=== PATIENT | male | born 1960 | race Hispanic/Latino ===

== ENCOUNTER 2018-02-10 16:41 | Emergency (ER) | payer SELFPAY ==
--- NOTE | 2018-02-10 17:39 | EDPHYS ---
Physician Documentation [facility] Name: Taiwo Chery Age: 57 yrs Sex: Male : 1960 Arrival Date: 02/10/2018 Time: 16:45 Bed 20 Private MD: ED Physician You Daigle HPI: 02/10 17:16 This 57 yrs old Male presents to ER via Ambulatory with complaints of Diarrhea.gs 17:16 The patient presents to the emergency department with diarrhea, 10 times since the gs onset of symptoms, abdominal pain, of the right upper quadrant and left upper quadrant, described as crampy, intermittent. Onset: The symptoms/episode began/occurred 3 day(s) ago. Possible causes: sick contacts, by family, , had same. The symptoms are aggravated by nothing. The symptoms are alleviated by nothing. Associated signs and symptoms: Pertinent positives: diarrhea, Pertinent negatives: fever, GI bleeding. Severity of symptoms: At their worst the symptoms were moderate in the emergency department the symptoms have improved moderately. The patient has experienced similar episodes in the past, a few times. The patient has not recently seen a physician. Historical: - Allergies: 16:56 NKDA; aj - Home Meds: 16:56 aspirin 81 mg Oral TbEC 1 tab once daily [Active]; atenolol 25 mg Oral tab 1 tab once aj daily [Active]; enalapril maleate 20 mg Oral tab 1 tab once daily [Active]; metformin 500 mg Oral tr24 1 tab once daily [Active]; Zocor Oral [Active]; - PMHx: 16:56 Anxiety; Diabetes - NIDDM; Headaches; Hyperlipidemia; Hypertension; TIA; aj - PSHx: 16:56 None; aj - Immunization history:: Adult Immunizations up to date. - Social history:: Smoking status: Patient/guardian denies using tobacco. ROS: 17:16 All other systems are negative. gs Exam: 17:16 Head/Face: Normocephalic, atraumatic. Eyes: Pupils equal round and reactive to light, gs extra-ocular motions intact. Lids and lashes normal. Conjunctiva and sclera are non-icteric and not injected. Cornea within normal limits. Periorbital areas with no swelling, redness, or edema. ENT: Nares patent. No nasal discharge, no septal abnormalities noted. Tympanic membranes are normal and external auditory canals are clear. Oropharynx with no redness, swelling, or masses, exudates, or evidence of obstruction, uvula midline. Mucous membranes moist. Neck: Trachea midline, no thyromegaly or masses palpated, and no cervical lymphadenopathy. Supple, full range of motion without nuchal rigidity, or vertebral point tenderness. No Meningismus. Chest/axilla: Normal chest wall appearance and motion. Nontender with no deformity. No lesions are appreciated. Cardiovascular: Regular rate and rhythm with a normal S1 and S2. No gallops, murmurs, or rubs. Normal PMI, no JVD. No pulse deficits. Respiratory: Lungs have equal breath sounds bilaterally, clear to auscultation and percussion. No rales, rhonchi or wheezes noted. No increased work of breathing, no retractions or nasal flaring. Back: No spinal tenderness. No costovertebral tenderness. Full range of motion. Skin: Warm, dry with normal turgor. Normal color with no rashes, no lesions, and no evidence of cellulitis. MS/ Extremity: Pulses equal, no cyanosis. Neurovascular intact. Full, normal range of motion. Neuro: Awake and alert, GCS 15, oriented to person, place, time, and situation. Cranial nerves II-XII grossly intact. Motor strength 5/5 in all extremities. Sensory grossly intact. Cerebellar exam normal. Normal gait. 17:16 Constitutional: The patient appears alert, awake. 17:16 Abdomen/GI: Inspection: abdomen appears normal, Bowel sounds: normal, Palpation: abdomen is soft and non-tender, in all quadrants, rebound tenderness, is not appreciated. Vital Signs: 16:56 BP 124 / 67; Pulse 83; Resp 17; Temp 98.4; Pulse Ox 99% on R/A; Weight 114.31 kg; aj Height 5 ft. 4 in. (162.56 cm); Pain 0/10; 17:57 BP 121 / 72; Pulse 80; Resp 18; Temp 97.9; Pulse Ox 99% on R/A; ph 16:56 Body Mass Index 43.26 (114.31 kg, 162.56 cm) aj MDM: 17:14 Patient medically screened. 17:16 Differential diagnosis: gastritis, viral gastroenteritis, gastroenteritis. Data gs reviewed: vital signs, nurses notes. Response to treatment: the patient's symptoms have mildly improved after treatment, and as a result, I will discharge patient. ED course: pt has stable vital signs no vomiting can hydrate will. Administered Medications: No medications were administered Disposition: 02/10/18 17:38 Discharged to Home. Impression: Diarrhea, unspecified. - Condition is Stable. - Discharge Instructions: Diarrhea. - Prescriptions for loperamide 2 mg Oral capsule - take 2 capsule by ORAL route as directed after 1st loose stool, followed by 1 capsule after each subsequent loose stool QID not to exceed 16 mg/day; 30 capsule. - Work release form, Medication Reconciliation Form, Thank You Letter, Antibiotic Education, Prescription Opioid Use form. - Follow up: Private Physician; When: 2 - 3 days; Reason: Re-evaluation by your physician. Follow up: Catarino Ibarra MD; When: 2 - 3 days; Reason: Recheck today's complaints, Re-evaluation by your physician. Signatures: Dispatcher [employer] Meaghan Bills RN RN aj Hall, Patricia, RN RN You Daigle MD MD
--- NOTE | 2018-02-10 17:39 | ER ---
Nurse's Notes [facility] Name: Taiwo Chery Age: 57 yrs Sex: Male : 1960 Arrival Date: 02/10/2018 Time: 16:45 Bed 20 Private MD: Diagnosis: Diarrhea, unspecified Presentation: 02/10 16:55 Presenting complaint: Patient states: Diarrhea for 2 days. Transition of care: patient aj was not received from another setting of care. Onset of symptoms was February 09, 2018. Care prior to arrival: None. 16:55 Method Of Arrival: Ambulatory aj 16:55 Acuity: LEONARD 3 aj Triage Assessment: 16:56 General: Appears in no apparent distress. comfortable, Behavior is calm, cooperative, aj appropriate for age. Pain: Denies pain. Neuro: Level of Consciousness is awake, alert, obeys commands, Oriented to person, place, time, situation. Respiratory: Airway is patent Respiratory effort is even, unlabored, Respiratory pattern is regular, symmetrical. GI: Reports lower abdominal pain, upper abdominal pain, diarrhea. Derm: Skin is intact, is healthy with good turgor, Skin is pink, warm \T\ dry. normal. Historical: - Allergies: 16:56 NKDA; aj - Home Meds: 16:56 aspirin 81 mg Oral TbEC 1 tab once daily [Active]; atenolol 25 mg Oral tab 1 tab once aj daily [Active]; enalapril maleate 20 mg Oral tab 1 tab once daily [Active]; metformin 500 mg Oral tr24 1 tab once daily [Active]; Zocor Oral [Active]; - PMHx: 16:56 Anxiety; Diabetes - NIDDM; Headaches; Hyperlipidemia; Hypertension; TIA; aj - PSHx: 16:56 None; aj - Immunization history:: Adult Immunizations up to date. - Social history:: Smoking status: Patient/guardian denies using tobacco. Screenin:54 Abuse screen: Denies threats or abuse. Denies injuries from another. Nutritional ph screening: No deficits noted. Tuberculosis screening: No symptoms or risk factors identified. Fall Risk None identified. Assessment: 17:00 General: Appears in no apparent distress. comfortable, well groomed, Behavior is calm, ph cooperative, appropriate for age, Denies fever. Pain: Complains of pain in left upper quadrant and right upper quadrant. Neuro: Level of Consciousness is awake, alert, obeys commands, Oriented to person, place, time, Appropriate for age. Cardiovascular: Capillary refill < 3 seconds Patient's skin is warm and dry. Respiratory: Airway is patent Respiratory effort is even, unlabored, Respiratory pattern is regular, symmetrical. GI: Abdomen is round non-distended, Bowel sounds present X 4 quads. Abd is soft and non tender X 4 quads. Reports upper abdominal pain, diarrhea, Patient currently denies nausea, vomiting. Derm: Skin is intact, is healthy with good turgor, Skin is pink, warm \T\ dry. Musculoskeletal: Circulation, motion, and sensation intact. Range of motion: intact in all extremities. Vital Signs: 16:56 BP 124 / 67; Pulse 83; Resp 17; Temp 98.4; Pulse Ox 99% on R/A; Weight 114.31 kg; Height 5 ft. 4 in. (162.56 cm); Pain 0/10; 17:57 BP 121 / 72; Pulse 80; Resp 18; Temp 97.9; Pulse Ox 99% on R/A; ph 16:56 Body Mass Index 43.26 (114.31 kg, 162.56 cm) ED Course: 16:45 Patient arrived in ED. mr 16:56 Triage completed. 16:56 Arm band placed on right wrist. Patient placed in an exam room. 17:06 You Daigle MD is Attending Physician. 17:38 Ellie Lehman RN is Primary Nurse. 17:38 Catarino Ibarra MD is Referral Physician. 17:55 Patient has correct armband on for positive identification. Bed in low position. Call ph light in reach. Side rails up X 1. Pulse ox on. NIBP on. 17:56 No provider procedures requiring assistance completed. Patient did not have IV access ph during this emergency room visit. Administered Medications: No medications were administered Outcome: 17:38 Discharge ordered by . 17:56 Discharged to home ambulatory, with family. ph 17:56 Condition: good 17:56 Discharge instructions given to patient, family, Instructed on discharge instructions, follow up and referral plans. medication usage, Demonstrated understanding of instructions, follow-up care, medications, Prescriptions given X 1. 17:57 Patient left the ED. ph Signatures: Meaghan Flannery, LELE Sherita Wren Patricia, RN RN ph You Daigle MD MD gs
== END 2018-02-10 17:57 | disposition home or self-care (01) ==
LOC: ER 16:41
DX: R19.7 Diarrhea, unspecified (principal); I10 Essential (primary) hypertension; E11.9 Type 2 diabetes mellitus without complications; Z79.82 Long term (current) use of aspirin; E78.5 Hyperlipidemia, unspecified; F41.9 Anxiety disorder, unspecified
CPT/HCPCS: 99283

== ENCOUNTER 2018-03-22 17:56 | Observation (INO) | payer OTHER, SELFPAY ==
[2018-03-22] MEDS ORDERED: ASPIRIN 81 MG CHEWABLE TABLET ONE (18:00)
[2018-03-22] MEDS ORDERED: MORPHINE 4 MG/ML SYR ONE (18:17)
[2018-03-22] MEDS ORDERED: ONDANSETRON 4 MG/2 ML VIAL ONE (18:18)
[2018-03-22 18:47] LABS: Absolute Lymphocytes (CBC) 3.7 K/uL (0.7-4.9); Absolute Neutrophil 6.2 K/uL (1.8-8.0); Basophils % 0.5 % (0-1.3); Eosinophils % 4.6 % (0-4.4); Hematocrit 32.1 % (39.6-49.0); Lymphocytes % 32.2 % (15.3-44.8); MCH 22.6 pg (27.0-35.0); MCV 73.3 fL (80-100); MPV 10.1 fL (7.6-11.3); Monocytes % 8.6 % (3.3-12.3); RBC Red Blood Cell Count 4.38 M/uL (4.33-5.43)
[2018-03-22 18:49] LABS: Protime INR 0.97
--- NOTE | 2018-03-22 18:51 | RAD REPORT ---
EXAM DESCRIPTION: RAD - Chest Single View - 03/22/2018 6:44 pm CLINICAL HISTORY: Chest pain. COMPARISON: 05/29/2017 FINDINGS: Portable technique limits examination quality. The lungs are grossly clear. The heart is normal in size. No displaced fractures. IMPRESSION: No acute intrathoracic process suspected.
[2018-03-22 19:00] LABS: Bicarbonate 25 mEq/L (21-31); Glucose Level 188 mg/dL (65-120); Potassium 3.7 mEq/L (3.6-5.0); Sodium Level 137 mEq/L (135-145)
[2018-03-22 19:04] LABS: ALT/SGPT 36 IU/L (10-60); AST/SGOT 36 IU/L (10-42); Alkaline Phosphatase 88 IU/L (42-121); BUN Blood Urea Nitrogen 13 mg/dL (6-20); Bilirubin Total 0.2 mg/dL (0.3-1.2); CKMB Creatine Kinase MB 1.3 ng/ml (0.3-4.0); Creatine Phosphokinase 90 IU/L (22-269); Magnesium 1.8 mg/dL (1.8-2.5); Protein, Total 7.5 g/dL (6.0-8.3)
[2018-03-22 19:06] LABS: Bilirubin Direct < 0.1 mg/dL (0-0.2)
[2018-03-22 19:49] LABS: Urine Blood 3+ (NEG); Urine Glucose NEGATIVE (NEG); Urine Protein NEGATIVE (NEG); Urine pH 6.5 (5.0-7.0)
--- NOTE | 2018-03-22 20:24 | ER ---
Nurse's Notes [facility] Name: Taiwo Chery Age: 57 yrs Sex: Male : 1960 Arrival Date: 03/22/2018 Time: 17:57 Bed 5 Private MD: Catarino Brandt E Diagnosis: Chest pain, unspecified Presentation: 03/22 18:00 Presenting complaint: states: chest pain for 30 minutes, pt clammy and clutching la1 chest in triage. Transition of care: patient was not received from another setting of care. Onset of symptoms was March 22, 2018. Initial Sepsis Screen: Does the patient meet any 2 criteria? No. Patient's initial sepsis screen is negative. Does the patient have a suspected source of infection? No. Patient's initial sepsis screen is negative. Care prior to arrival: None. 18:00 Method Of Arrival: Ambulatory la1 18:00 Acuity: LEONARD 2 la1 Historical: - Allergies: 18:01 NKDA; la1 - Home Meds: 21:22 aspirin 81 mg Oral TbEC 1 tab once daily [Active]; atenolol 25 mg Oral tab 1 tab once ao daily [Active]; enalapril maleate 20 mg Oral tab 1 tab once daily [Active]; metformin 500 mg Oral tr24 1 tab once daily [Active]; Zocor Oral [Active]; - PMHx: 18:01 Anxiety; Diabetes - NIDDM; Headaches; Hyperlipidemia; Hypertension; TIA; la1 - Immunization history:: Adult Immunizations up to date. - Social history:: Smoking status: Patient/guardian denies using tobacco. Screenin:09 Abuse screen: Denies threats or abuse. Denies injuries from another. Nutritional iw screening: No deficits noted. Tuberculosis screening: No symptoms or risk factors identified. Fall Risk IV access (20 points). Assessment: 18:08 General: Appears uncomfortable, obese, Behavior is cooperative, anxious. Pain: iw Complains of pain in anterior aspect of left upper chest and left breast Pain does not radiate. Pain currently is 10 out of 10 on a pain scale. Quality of pain is described as sharp, Pain began 30 min ago. Is continuous. Neuro: Level of Consciousness is awake, alert, obeys commands, Oriented to person, place, time, situation, Moves all extremities. Full function. Cardiovascular: Reports chest pain, Denies shortness of breath, Edema is absent. Rhythm is regular. Respiratory: Respiratory effort is even, unlabored, Respiratory pattern is regular. Derm: Skin is normal. Musculoskeletal: Range of motion: intact in all extremities. 19:00 Reassessment: Patient appears in no apparent distress at this time. Patient and/or sg family updated on plan of care and expected duration. Pain level reassessed. Patient is alert, oriented x 3, equal unlabored respirations, skin warm/dry/pink. pt family remains at bedside at this time, awaiting new orders, report given to Loy RN, Julianna RN. 19:26 General: Appears in no apparent distress. comfortable, Behavior is cooperative. Pain: ao Complains of pain in chest. Neuro: Level of Consciousness is awake, alert, obeys commands, Oriented to person, place, time, situation, Moves all extremities. Full function Speech is normal, Facial symmetry appears normal. Cardiovascular: Patient's skin is warm and dry. Respiratory: Airway is patent Respiratory effort is even, unlabored, Respiratory pattern is regular, symmetrical. GI: Abdomen is obese. : No signs and/or symptoms were reported regarding the genitourinary system. EENT: No signs and/or symptoms were reported regarding the EENT system. Derm: Skin is normal, Skin temperature is warm. 20:40 Reassessment: Patient appears in no apparent distress at this time. Patient and/or ao family updated on plan of care and expected duration. Pain level reassessed. Patient is alert, oriented x 3, equal unlabored respirations, skin warm/dry/pink. Waiting on Dr Orders to take patient to his room. 21:40 Reassessment: Patient appears in no apparent distress at this time. Patient and/or ao family updated on plan of care and expected duration. Pain level reassessed. Patient is alert, oriented x 3, equal unlabored respirations, skin warm/dry/pink. Waiting on Dr Admission orders. 22:29 Reassessment: Patient appears in no apparent distress at this time. Patient and/or ao family updated on plan of care and expected duration. Pain level reassessed. Dr Shook has been notified that patient has a pending admission and we are just waiting on his admission orders. 22:59 Reassessment: Phone report given to LELE Burns. Patient to be transported to his room. ao Vital Signs: 18:01 BP 142 / 80; Pulse 83; Resp 19; Temp 98.8(TE); Pulse Ox 100% on R/A; Weight 107.05 kg; la1 Height 5 ft. 2 in. (157.48 cm); 19:00 BP 136 / 76; Pulse 79; Resp 17; Pulse Ox 100% on R/A; sg 19:30 BP 112 / 70; Pulse 76; Resp 18; Pulse Ox 98% on R/A; ao 20:40 BP 124 / 64; Pulse 69; Resp 16; Pulse Ox 98% on R/A; Pain 0/10; ao 21:40 BP 126 / 81; Pulse 71; Resp 18; Pulse Ox 98% on R/A; Pain 0/10; ao 22:29 BP 123 / 69; Pulse 74; Resp 20; Pulse Ox 98% on R/A; Pain 0/10; ao 22:43 BP 137 / 73; Pulse 79; Resp 16; Pulse Ox 99% ; ao 18:01 Body Mass Index 43.16 (107.05 kg, 157.48 cm) la1 ED Course: 17:57 Patient arrived in ED. mr 17:58 Catarino Brandt MD is Private Physician. mr 18:01 Triage completed. la1 18:01 Arm band placed on right wrist. la1 18:02 Andreia Thompson FNP-C is [facility]. snw 18:02 Catarino Adrian MD is Attending Physician. snw 18:03 Casa Hutchison, LELE is Primary Nurse. sg 18:09 EKG done, by ED staff, reviewed by Andreia SALAZAR. jb1 18:09 Initial lab(s) drawn, by ED staff, sent to lab. jb1 18:09 Inserted saline lock: 20 gauge in left antecubital area, using aseptic technique. Blood iw collected. 18:09 Patient maintains SpO2 saturation greater than 95% on room air. iw 18:15 Patient has correct armband on for positive identification. Bed in low position. Call sg light in reach. Side rails up X2. Adult w/ patient. library monitor on. Pulse ox on. NIBP on. Warm blanket given. Head of bed elevated. 18:29 EKG done, by ED staff, reviewed by Andreia SALAZAR. jb1 18:43 X-ray completed. Portable x-ray completed in exam room. Patient tolerated procedure la2 well. 18:44 XRAY Chest (1 view) In Process Unspecified. EDMS 19:19 Primary Nurse role handed off by Casa Hutchison RN 19:26 Loy Sher, RN is Primary Nurse. ao 20:23 Wanda Aleman MD is Hospitalizing Provider. snw 23:00 No provider procedures requiring assistance completed. Patient admitted, IV remains in ao place. Administered Medications: 18:05 Drug: Aspirin Chewable Tablet 324 mg Route: PO; sg 23:01 Follow up: Response: No adverse reaction ao 18:20 Drug: morphine 4 mg Route: IVP; Site: left antecubital; iw 23:01 Follow up: Response: No adverse reaction ao 18:20 Drug: Zofran 4 mg Route: IVP; Site: left antecubital; iw 23:01 Follow up: Response: No adverse reaction ao Outcome: 20:24 Decision to Hospitalize by Provider. snw 23:00 Admitted to Tele accompanied by nurse, room 421. ao 23:00 Condition: stable 23:00 Instructed on the need for admit. 03/23 00:16 Patient left the ED. ao Signatures: Dispatcher [employer] EDMS Marvin Foreman jb1 Casa Hutchison, Andreia Hampton RN, MARTIN HENSON-Sherita Schultz Aisha Rnad RN RN Shun Sims RN RN la1 Loy Sher RN RN ao Ardoin, Leslie la2 Corrections: (The following items were deleted from the chart) 00:48 00:46 Patient left the ED. ao ao
--- NOTE | 2018-03-22 20:24 | EDPHYS ---
Physician Documentation [facility] Name: Taiwo Chery Age: 57 yrs Sex: Male : 1960 Arrival Date: 03/22/2018 Time: 17:57 Bed 5 Private MD: Catarino Brandt E ED Physician Catarino Adrian HPI: 03/22 18:04 This 57 yrs old Male presents to ER via Ambulatory with complaints of Chest snw Pain. 18:04 Onset: The symptoms/episode began/occurred acutely, 30 minute(s) ago, and became snw persistent. Associated signs and symptoms: Pertinent positives: The patient does not have any pertinent positive signs or symptoms associated with pediatric illness. Modifying factors: The patient symptoms are alleviated by nothing. The patient has experienced similar episodes in the past. It is unknown whether or not the patient has recently seen a physician. See Dr. Aden/Karly? per Spouse. Historical: - Allergies: 18:01 NKDA; la1 - Home Meds: 21:22 aspirin 81 mg Oral TbEC 1 tab once daily [Active]; atenolol 25 mg Oral tab 1 tab once ao daily [Active]; enalapril maleate 20 mg Oral tab 1 tab once daily [Active]; metformin 500 mg Oral tr24 1 tab once daily [Active]; Zocor Oral [Active]; - PMHx: 18:01 Anxiety; Diabetes - NIDDM; Headaches; Hyperlipidemia; Hypertension; TIA; la1 - Immunization history:: Adult Immunizations up to date. - Social history:: Smoking status: Patient/guardian denies using tobacco. ROS: 18:03 Eyes: Negative for injury, pain, redness, and discharge, ENT: Negative for injury, snw pain, and discharge, Neck: Negative for injury, pain, and swelling. 18:03 Respiratory: Negative for shortness of breath, cough, wheezing, and pleuritic chest pain, Abdomen/GI: Negative for abdominal pain, nausea, vomiting, diarrhea, and constipation, Back: Negative for injury and pain, : Negative for injury, bleeding, discharge, and swelling, MS/Extremity: Negative for injury and deformity, Skin: Negative for injury, rash, and discoloration, Neuro: Negative for headache, weakness, numbness, tingling, and seizure. 18:03 Constitutional: Positive for malaise. 18:03 Cardiovascular: Positive for chest pain, of the anterior aspect of left upper chest and left breast. Exam: 18:03 Head/Face: Normocephalic, atraumatic. Eyes: Pupils equal round and reactive to light, snw extra-ocular motions intact. Lids and lashes normal. Conjunctiva and sclera are non-icteric and not injected. Cornea within normal limits. Periorbital areas with no swelling, redness, or edema. ENT: Nares patent. No nasal discharge, no septal abnormalities noted. Tympanic membranes are normal and external auditory canals are clear. Oropharynx with no redness, swelling, or masses, exudates, or evidence of obstruction, uvula midline. Mucous membranes moist. Neck: Trachea midline, no thyromegaly or masses palpated, and no cervical lymphadenopathy. Supple, full range of motion without nuchal rigidity, or vertebral point tenderness. No Meningismus. Chest/axilla: Normal chest wall appearance and motion. Nontender with no deformity. No lesions are appreciated. Cardiovascular: Regular rate and rhythm with a normal S1 and S2. No gallops, murmurs, or rubs. Normal PMI, no JVD. No pulse deficits. Respiratory: Lungs have equal breath sounds bilaterally, clear to auscultation and percussion. No rales, rhonchi or wheezes noted. No increased work of breathing, no retractions or nasal flaring. Abdomen/GI: Soft, non-tender, with normal bowel sounds. No distension or tympany. No guarding or rebound. No evidence of tenderness throughout. Back: No spinal tenderness. No costovertebral tenderness. Full range of motion. Skin: Warm, dry with normal turgor. Normal color with no rashes, no lesions, and no evidence of cellulitis. MS/ Extremity: Pulses equal, no cyanosis. Neurovascular intact. Full, normal range of motion. Neuro: Awake and alert, GCS 15, oriented to person, place, time, and situation. Cranial nerves II-XII grossly intact. Motor strength 5/5 in all extremities. Sensory grossly intact. Cerebellar exam normal. Normal gait. 18:03 Constitutional: The patient appears awake, anxious. Vital Signs: 18:01 BP 142 / 80; Pulse 83; Resp 19; Temp 98.8(TE); Pulse Ox 100% on R/A; Weight 107.05 kg; la1 Height 5 ft. 2 in. (157.48 cm); 19:00 BP 136 / 76; Pulse 79; Resp 17; Pulse Ox 100% on R/A; sg 19:30 BP 112 / 70; Pulse 76; Resp 18; Pulse Ox 98% on R/A; ao 20:40 BP 124 / 64; Pulse 69; Resp 16; Pulse Ox 98% on R/A; Pain 0/10; ao 21:40 BP 126 / 81; Pulse 71; Resp 18; Pulse Ox 98% on R/A; Pain 0/10; ao 22:29 BP 123 / 69; Pulse 74; Resp 20; Pulse Ox 98% on R/A; Pain 0/10; ao 22:43 BP 137 / 73; Pulse 79; Resp 16; Pulse Ox 99% ; ao 18:01 Body Mass Index 43.16 (107.05 kg, 157.48 cm) la1 MDM: 18:05 Patient medically screened. snw 20:24 Data reviewed: vital signs, nurses notes. Data interpreted: Pulse oximetry: on room air snw is 100 %. Interpretation: acceptable. Counseling: I had a detailed discussion with the patient and/or guardian regarding: the historical points, exam findings, and any diagnostic results supporting the discharge/admit diagnosis, lab results, radiology results, the need for further work-up and treatment in the hospital. Physician consultation: Wanda Aleman MD was called at 20:24, was contacted at 20:24, regarding admission, to the telemetry unit. 03/22 18:03 Order name: Basic Metabolic Panel; Complete Time: 19:14 snw 03/22 18:03 Order name: BNP; Complete Time: 19:04 snw 03/22 18:03 Order name: CBC with Diff; Complete Time: 19:02 snw 03/22 18:03 Order name: Ckmb; Complete Time: 19:14 snw 03/22 18:03 Order name: CPK; Complete Time: 19:14 snw 03/22 18:03 Order name: LFT's; Complete Time: 19:14 snw 03/22 18:03 Order name: Magnesium; Complete Time: 19:14 snw 03/22 18:03 Order name: PT-INR; Complete Time: 19:02 snw 03/22 18:03 Order name: Ptt, Activated; Complete Time: 19:02 snw 03/22 18:03 Order name: Troponin (emerg Dept Use Only); Complete Time: 19:02 snw 03/22 18:03 Order name: XRAY Chest (1 view); Complete Time: 18:55 snw 03/22 19:37 Order name: Urine Dipstick--Ancillary (enter results); Complete Time: 19:59 mw2 03/22 18:03 Order name: EKG; Complete Time: 18:03 snw 03/22 18:03 Order name: Cardiac monitoring; Complete Time: 18:04 snw 03/22 18:03 Order name: EKG - Nurse/Tech; Complete Time: 18:04 snw 03/22 18:03 Order name: IV Saline Lock; Complete Time: 18:04 snw 03/22 18:03 Order name: Labs collected and sent; Complete Time: 18:04 snw 03/22 18:03 Order name: O2 Per Protocol; Complete Time: 18:04 w 03/22 18:03 Order name: O2 Sat Monitoring; Complete Time: 18:04 w 03/22 18:03 Order name: Urine Dipstick-Ancillary (obtain specimen); Complete Time: 23:02 snw Administered Medications: 18:05 Drug: Aspirin Chewable Tablet 324 mg Route: PO; sg 23:01 Follow up: Response: No adverse reaction ao 18:20 Drug: morphine 4 mg Route: IVP; Site: left antecubital; iw 23:01 Follow up: Response: No adverse reaction ao 18:20 Drug: Zofran 4 mg Route: IVP; Site: left antecubital; iw 23:01 Follow up: Response: No adverse reaction ao Disposition: 03/22/18 20:24 Hospitalization ordered by Wanda Aleman for Observation. Preliminary diagnosis is Chest pain, unspecified. - Bed requested for Telemetry/MedSurg (observation). - Status is Observation. ao - Condition is Stable. - Problem is new. - Symptoms have improved. UTI on Admission? No Addendum: 03/31/2018 06:00 Co-signature as Attending Physician, Catarino Adrian MD I agree with the assessment and w a plan of care. Signatures: Dispatcher [facility] Li Aguilar RN RN Casa Hutchison RN Andreia Hampton, ABSTRACT SEARCHER-C ABSTRACT SEARCHER-Csnw Aisha Rand, RN LELE iw Shun Sims, RN Loy Mendoza RN LELE ao Catarino Adrian MD MD va Corrections: (The following items were deleted from the chart) 03/22 20:32 20:24 Hospitalization Ordered by Wanda Aleman MD for Observation. Preliminary mw diagnosis is Chest pain, unspecified. Bed requested for Telemetry/MedSurg (observation). Status is Observation. Condition is Stable. Problem is new. Symptoms have improved. UTI on Admission? No. snw 03/23 00:46 03/22 20:32 03/22/2018 20:24 Hospitalization Ordered by Wanda Aleman MD for ao Observation. Preliminary diagnosis is Chest pain, unspecified. Bed requested for Telemetry/MedSurg (observation). Status is Observation. Condition is Stable. Problem is new. Symptoms have improved. UTI on Admission? No. mw
[2018-03-22] MEDS ORDERED: ALPRAZOLAM 0.25 MG TABLET PO PRN (22:38)
[2018-03-22] MEDS ORDERED: MORPHINE 4 MG/ML SYR IV PRN (22:38)
[2018-03-22] MEDS ORDERED: ACETAMINOPHEN 500 MG TAB PO PRN (22:38)
--- NOTE | 2018-03-23 01:41 | P.HP ---
Certification for Inpatient Patient admitted to: Observation With expected LOS: <2 Midnights Patient will require the following post-hospital care: None Practitioner: I am a practitioner with admitting privileges, knowledge of patient current condition, hospital course, and medical plan of care. Services: Services provided to patient in accordance with Admission requirements found in Title 42 Section 412.3 of the Code of Federal Regulations Patient History Date of Service: 03/22/18 Reason for admission: Chest pain rule out acute coronary syndrome History of Present Illness: Patient is a 57-year-old gentleman who came to the hospital with chest discomfort. Patient is also short of breath. Patient has morbid obesity with a BMI greater than 43. Patient has obstructive sleep apnea as well, and patient uses a CPAP regularly. Patient's chest pain was sharp, and patient had severe pain. Patient brought him into the hospital. Patient has a history of diabetes, hypertension, and significant family history. Patient's EKG did not reveal any significant abnormalities and troponins are negative. Patient will be admitted to the hospital for further evaluation. Allergies No Known Drug Allergies Allergy (Verified 05/29/17 20:33) Unknown Home Medications: Atenolol [Tenormin*] 1 tab PO DAILY 12/12/15 Enalapril Maleate [Vasotec] 20 mg PO BID 12/12/15 Metformin HCl [Glucophage*] 1 tab PO DAILY 12/12/15 Aspirin [Aspirin EC 81 MG] 1 tab PO DAILY 05/29/17 Simvastatin [Zocor] 40 mg PO BEDTIME 05/29/17 - Past Medical/Surgical History Diabetic: Yes -: Hypertension -: diabetes -: Hyperlipidemia -: TIA (2012) Past Surgical History: Patient denies surgical history - Family History Father Medical History: Heart disease, Hypertension Mother Medical History: Heart disease, Hypertension, Diabetes - Social History Smoking Status: Former smoker Alcohol use: No CD- Drugs: No Caffeine use: Yes Place of Residence: Home Review of Systems 10-point ROS is otherwise unremarkable Physical Examination - Vital Signs Temperature: 97.2 F Blood Pressure: 141/71 Pulse: 65 Respirations: 20 Pulse Ox (%): 98 - Physical Exam General: Alert, In no apparent distress, Oriented x3 HEENT: Atraumatic, PERRLA, Mucous membr. moist/pink, EOMI, Sclerae nonicteric Neck: Supple, 2+ carotid pulse no bruit, No LAD, Without JVD or thyroid abnormality Respiratory: Clear to auscultation bilaterally, Normal air movement Cardiovascular: Regular rate/rhythm, Normal S1 S2, No murmurs Gastrointestinal: Normal bowel sounds, Soft and benign, Non-distended, No tenderness Musculoskeletal: No clubbing, No swelling, No tenderness Integumentary: No rashes Neurological: Normal gait, Normal speech, Normal strength at 5/5 x4 extr, Normal tone, Sensation intact, Cranial nerves 3-12 intact, Normal affect Lymphatics: No axilla or inguinal lymphadenopathy - Studies Laboratory Data (last 24 hrs) 03/22/18 18:05: PT 11.4, INR 0.97, APTT 25.1 03/22/18 18:05: WBC 11.4 H, Hgb 9.9 L, Hct 32.1 L, Plt Count 277 03/22/18 18:05: B-Natriuretic Peptide 19 03/22/18 18:05: Sodium 137, Potassium 3.7, BUN 13, Creatinine 0.84, Glucose 188 H, Magnesium 1.8 D, Total Bilirubin 0.2 L, AST 36, ALT 36, Alkaline Phosphatase 88 Assessment & Plan - Problems (Diagnosis) (1) Chest pain, rule out acute myocardial infarction Current Visit: Yes Status: Acute (2) Hypertension Current Visit: Yes Status: Acute (3) Diabetes mellitus Onset Date: 12/13/15 Current Visit: No Status: Acute Qualifiers: Diabetes mellitus type: type 2 Diabetes mellitus complication status: without complication Qualified Code(s): E11.9 - Type 2 diabetes mellitus without complications (4) Obesity (BMI 30-39.9) Current Visit: No Status: Acute (5) Anemia Current Visit: Yes Status: Acute - Plan 1. Serial troponins and EKG 2. Cardiology consultation 3. Echocardiogram and stress test in a.m. 4. Anti-platelet therapy, anti coagulation, beta-prakash, statin, and O2 as needed 5. IV morphine for pain 6. Nitro p.r.n. 7. Strict blood pressure and blood sugar control 8. CPAP for sleep 9. GI and DVT prophylaxis - Advance Directives Does patient have a Living Will: No Does patient have a Durable POA for Healthcare: No - Code Status/Comfort Care Code Status Assessed: Yes Code Status: Full Code Critical Care: No Time Spent Managing PTS Care (In Minutes): 50
[2018-03-23 05:38] LABS: Absolute Lymphocytes (CBC) 2.7 K/uL (0.7-4.9); Absolute Monocytes 0.8 K/uL (0.1-1.3); Absolute Neutrophil 4.3 K/uL (1.8-8.0); Basophils % 0.9 % (0-1.3); Eosinophils % 5.2 % (0-4.4); Hematocrit 28.6 % (39.6-49.0); Lymphocytes % 32.1 % (15.3-44.8); MCH 22.7 pg (27.0-35.0); MCV 72.7 fL (80-100); MPV 9.9 fL (7.6-11.3); Monocytes % 9.4 % (3.3-12.3); RBC Red Blood Cell Count 3.93 M/uL (4.33-5.43)
[2018-03-23 05:57] LABS: BUN Blood Urea Nitrogen 16 mg/dL (6-20); Bicarbonate 26 mEq/L (21-31); Glucose Level 152 mg/dL (65-120); HDL Cholesterol 33 mg/dL (27-67); LDL Cholesterol, Calculated 99 (<130); Potassium 3.9 mEq/L (3.6-5.0); Sodium Level 138 mEq/L (135-145)
--- NOTE | 2018-03-23 07:43 | EKG ---
Test Date: 2018-03-22 Test Time: 18:02:53 Wallpaper Printer Helper: THOMAS MEASUREMENT RESULTS: Intervals: Rate: 81 AL: 146 QRSD: 84 QT: 402 QTc: 466 [place]: P: 38 AL: 146 QRS: 23 T: 13 INTERPRETIVE STATEMENTS: Normal sinus rhythm Normal ECG Compared to ECG 05/28/2017 19:14:28 No significant changes Electronically Signed On 03-23-18 07:42:08 CDT by Patel Gresham
[2018-03-23] MEDS ORDERED: REGADENOSON 0.4 MG/5 ML SYR IV ONE (08:11)
[2018-03-23] MEDS ORDERED: METOPROLOL TAR 50 MG TAB PO SCH (09:00)
[2018-03-23] MEDS ORDERED: ASPIRIN EC 81 MG TAB PO SCH (09:00)
--- NOTE | 2018-03-23 11:30 | CON ---
Identification: Mr. Townsend is 57. Chief Complaint: He is in the hospital because he had chest pain. History Of Present Illness: Mr. Oquendo had some pain, especially with deep inspiration, left shoulder region. No nausea, vomiting, sweating. Since he has been in the hospital, EKGs, cardiac enzymes, a nd vital signs are all normal. No more than 2 years ago, he had similar symptoms. He came to the [facility], where an echocardiogram and nuclear stress test were both normal. Past Medical History: He has diabetes. Medications: Takes metformin. He also takes atenolol, enalapril, aspirin, and simvastatin. Social History: He uses no tobacco. Rare alcohol. No illegal drugs. Physical Examination: General: He is 5 feet 4 inches, 254 pounds, body mass index 43.7. HEENT: Normal. Neck: Carotids, no bruits. Lungs: Clear. Heart: Normal. No friction rub. Abdomen: Soft. Extremities: Normal distal pulses. No cyanosis, clubbing, or edema. Diagnostic Data: Electrocardiogram is unremarkable. Impression: The patient is not having any coronary type of chest pain. It does not seem to be an un stable angina problem. We will do an echo and pharmacologic nuclear stress test. If those are maria victoria l, he could be discharged with anything that relieves his symptoms. I suspect it is pleurisy. I do not think it is pericarditis. DOUG/MILES Voice ID: [id number] Report ID: [id number]
--- NOTE | 2018-03-23 11:44 | RAD REPORT ---
EXAM DESCRIPTION: NM - Rest Stress Cardiac Imaging - 03/23/2018 11:36 am CLINICAL HISTORY: Chest pain. COMPARISON: 12/13/2015 TECHNIQUE: The patient was administered approximately 10mCi of Tc 99m Sestamibi prior to resting SPE CT imaging of the heart. The patient was then administered approximately 30 mCi of Tc 99m Sestamibi f ollowing exercise or pharmacologic stress. Multiplanar SPECT images were reviewed. FINDINGS: No stress induced ischemic defect is seen to suggest stress induced ischemia. No fixed def ect is seen to suggest hibernating myocardium or scarred myocardium. The end diastolic volume is 129 ml, the end systolic volume is 54 ml, and the ejection fraction is 58 %. IMPRESSION: No stress induced ischemia.
--- NOTE | 2018-03-23 11:54 | TREADPHA ---
DX: CHEST PAIN Date of Study: 03/23/18 Ht: 5 4 Wt: 254 lb 4.8 oz Consulting Physician: MANSOOR MEDICATIONS: TYLENOL, XANAX, ASPIRIN, LOPRESSOR HISTORY: 57 YEAR OLD MALE WITH CHEST PAIN. MYOCARDIAL INFARCTION WAS RULED OUT. PHYSICIAL EXAMINATION: RESTING B.P.: [id number] RESTING H.R.: 68 RESTING EKG: NORMAL. PROTOCOL: LEXISCAN EXERCISE TIME: 3:30 B.P. AT PEAK STRESS: 139/76 IMPRESSION: LEXISCAN STRESS TEST PERFORMED. CARDIOLITE PERFORMED PER PROTOCOL. NO VENTRICULAR TACHYCARDIA OR SUPRA VENTRICULAR TACHYCARDIA NOTED. SEE NUCLEAR MEDICINE REPORT. NONE DIAGNOSTIC EKG WITH LEXISCAN STRESS.
--- NOTE | 2018-03-23 14:45 | EKG ---
Test Date: 2018-03-22 Test Time: 18:14:14 [place] Gatherer: THOMAS MEASUREMENT RESULTS: Intervals: Rate: 84 SD: 152 QRSD: 82 QT: 398 QTc: 470 [place]: P: 35 SD: 152 QRS: 27 T: 18 INTERPRETIVE STATEMENTS: Normal sinus rhythm Normal ECG Compared to ECG 03/22/2018 18:02:53 No significant changes Electronically Signed On 03-23-18 14:45:06 CDT by Patel Gresham
--- NOTE | 2018-03-23 14:45 | EKG ---
Test Date: 2018-03-22 Test Time: 22:15:49 Poultry Field Service Technician: VJ MEASUREMENT RESULTS: Intervals: Rate: 67 DE: 150 QRSD: 84 QT: 426 QTc: 450 [place]: P: 24 DE: 150 QRS: 24 T: 10 INTERPRETIVE STATEMENTS: Normal sinus rhythm Normal ECG Compared to ECG 03/22/2018 18:59:28 Sinus arrhythmia no longer present Right-axis deviation no longer present Incomplete right bundle-branch block no longer present Electronically Signed On 03-23-18 14:44:14 CDT by Patel Gresham
--- NOTE | 2018-03-23 15:41 | P.DS ---
Admission Date: 03/22/18 Discharge Date: 03/23/18 Primary Care Provider: Dr. Brandt Disposition: ROUTINE DISCHARGE Discharge Condition: GOOD Reason for Admission: Chest pain rule out acute coronary syndrome Consultations: Cardiology-Dr. Gresham Procedures: Cardiac Stress test: No stress-induced ischemia noted. EF-58% - Problems (1) Hyperlipidemia Current Visit: Yes Status: Chronic Qualifiers: Hyperlipidemia type: unspecified Qualified Code(s): E78.5 - Hyperlipidemia , unspecified (2) Obstructive sleep apnea Current Visit: Yes Status: Chronic (3) Obesity Current Visit: Yes Status: Chronic Qualifiers: Obesity type: due to excess calories Obesity classification: adult class 3 (BMI >= 40) Serious obesity comorbidity presence: with serious comorbidity Body mass index: BMI 40.0-44.9 Qualified Code(s): E66.01 - Morbid (severe) obesity due to excess calories; Z68.41 - Body mass index (BMI) 40.0-44.9, adult (4) Hypertension Onset Date: 03/23/18 Current Visit: Yes Status: Chronic Qualifiers: Hypertension type: essential hypertension Qualified Code(s): I10 - Essential (primary) hypertension (5) Anemia Onset Date: 03/23/18 Current Visit: Yes Status: Chronic Qualifiers: Anemia type: iron deficiency Iron deficiency anemia type: unspecified iron deficiency Qualified Code(s): D50.9 - Iron deficiency anemia, unspecified (6) Chest pain Onset Date: 12/13/15 Current Visit: No Status: Acute Qualifiers: Chest pain type: unspecified Qualified Code(s): R07.9 - Chest pain, unspecified (7) Diabetes mellitus Onset Date: 12/13/15 Current Visit: No Status: Chronic Qualifiers: Diabetes mellitus type: type 2 Diabetes mellitus complication status: without complication Qualified Code(s): E11.9 - Type 2 diabetes mellitus without complications Brief History of Present Illness: 57 yo HM presented with chest pain. Patient with history of diabetes, hypertension and hyperlipidemia. Patient also has a history of obstructive sleep apnea. Patient appears compliant with CPAP. Hospital Course: Patient presented with chest pain. Patient evaluated by Cardiology. So far cardiac enzymes have been negative x3. Stress test recommended. Stress test showed no stress-induced ischemia. Ejection fraction 58%. Patient may continue aspirin 81 mg daily. Patient has hypertension. Medications have been adjusted. Recommendations for the patient to follow up with cardiology in 2-4 weeks to monitor his progress. Patient has hypertension. Medications have been adjusted. Patient will no longer take atenolol and enalapril. At discharge the medication metoprolol 50 mg 1 pill twice daily has been added. Recommendation is to maintain blood pressures less 150/80. Further adjustment can be done by his PCP. Patient has diabetes. This remained stable during the course of his stay. Patient may continue with Glucophage 500 mg once daily. Recommendation is to monitor A1c for better control. Recommendation to maintain blood sugars less 140 fasting and less than 200 after meals. Further adjustment can be done by his PCP. Patient has hyperlipidemia. Patient will continue with Zocor 40 mg 1 pill once daily. Patient likely has GERD. Patient has been started on Protonix 40 mg 1 pill once daily. Recommendation is for the patient follow up with GI as an outpatient to further evaluate. Patient may require EGD and colonoscopy as an outpatient. Patient has anemia. Iron deficiency noted in the past. Patient will be started on multi vitamin with iron daily. Recommendation is for the patient to follow up with GI as an outpatient for EGD and colonoscopy to further evaluate. Recommendation is to recheck CBC in 1-2 weeks to monitor his progress. Patient has obstructive sleep apnea. Recommendation is to continue with CPAP daily. Patient a follow up with pulmonology as an outpatient to further monitor. Lifestyle modification education will be provided. Vital Signs/Physical Exam: Temp Pulse Resp BP Pulse Ox 98.2 F 73 16 131/80 98 03/23/18 12:00 03/23/18 12:00 03/23/18 12:00 03/23/18 12:00 03/23/18 12:00 General: Alert, In no apparent distress, Oriented x3, Cooperative HEENT: Atraumatic Neck: Supple Respiratory: Clear to auscultation bilaterally, Normal air movement Cardiovascular: Normal pulses, Regular rate/rhythm Gastrointestinal: Normal bowel sounds, Soft and benign, Non-distended, No tenderness, No masses, No rebound, No guarding Musculoskeletal: No erythema, No tenderness, No warmth Integumentary: No tenderness/swelling, No erythema, No warmth, No cyanosis Neurological: Normal speech, Normal strength at 5/5 x4 extr, Normal tone, Normal affect Laboratory Data at Discharge: WBC 8.3 K/uL (4.3-10.9) D 03/23/18 05:05 Hgb 8.9 g/dL (13.6-17.9) L 03/23/18 05:05 Hct 28.6 % (39.6-49.0) L 03/23/18 05:05 Plt Count 222 K/uL (152-406) 03/23/18 05:05 PT 11.4 SECONDS (9.5-12.5) 03/22/18 18:05 INR 0.97 03/22/18 18:05 APTT 25.1 SECONDS (24.3-36.9) 03/22/18 18:05 Sodium 138 mEq/L (135-145) 03/23/18 05:05 Potassium 3.9 mEq/L (3.6-5.0) 03/23/18 05:05 BUN 16 mg/dL (6-20) 03/23/18 05:05 Creatinine 0.79 mg/dL (0.61-1.24) 03/23/18 05:05 Glucose 152 mg/dL (65-120) H 03/23/18 05:05 Magnesium 1.8 mg/dL (1.8-2.5) D 03/22/18 18:05 Total Bilirubin 0.2 mg/dL (0.3-1.2) L 03/22/18 18:05 AST 36 IU/L (10-42) 03/22/18 18:05 ALT 36 IU/L (10-60) 03/22/18 18:05 Alkaline Phosphatase 88 IU/L (42-121) 03/22/18 18:05 Troponin I < 0.03 ng/mL (<0.03) 03/23/18 11:49 B-Natriuretic Peptide 19 pg/ml (<=100) 03/22/18 18:05 Triglycerides Cancelled 03/23/18 06:00 Cholesterol Cancelled 03/23/18 06:00 HDL Cholesterol Cancelled 03/23/18 06:00 Cholesterol/HDL Ratio Cancelled 03/23/18 06:00 Home Medications: Metformin HCl [Glucophage*] 1 tab PO DAILY 12/12/15 Aspirin [Aspirin EC 81 MG] 1 tab PO DAILY 05/29/17 Simvastatin [Zocor] 40 mg PO BEDTIME 05/29/17 Metoprolol Tartrate [Lopressor*] 50 mg PO BID #60 tab 03/23/18 Multivitamin with Iron [Daily Multivitamin with Iron] 1 each PO DAILY #90 tablet 03/23/18 Pantoprazole [Protonix Tab] 40 mg PO DAILY #30 tab 03/23/18 New Medications: Metoprolol Tartrate [Lopressor*] 50 mg PO BID #60 tab Multivitamin with Iron [Daily Multivitamin with Iron] 1 each PO DAILY #90 tablet Pantoprazole [Protonix Tab] 40 mg PO DAILY #30 tab Patient Discharge Instructions: 1. Patient will need a follow up with PCP in 1 week to follow up this hospitalization. 2. Patient presented with chest pain. Patient evaluated by Cardiology. Stress test recommended. Stress test showed no stress-induced ischemia. Ejection fraction 58%. Patient may continue aspirin 81 mg daily. Patient has hypertension. Medications have been adjusted. Recommendations for the patient to follow up with cardiology in 2-4 weeks to monitor his progress. 3. Patient has hypertension. Medications have been adjusted. Patient will no longer take atenolol and enalapril. At discharge the medication metoprolol 50 mg 1 pill twice daily has been added. Recommendation is to maintain blood pressures less 150/80. Further adjustment can be done by his PCP. 4. Patient has diabetes. Patient may continue with Glucophage 500 mg once daily. Recommendation is to monitor A1c for better control. Recommendation to maintain blood sugars less 140 fasting and less than 200 after meals. Further adjustment can be done by his PCP. 5. Patient has hyperlipidemia. Patient will continue with Zocor 40 mg 1 pill once daily. 6. Patient likely has GERD. Patient has been started on Protonix 40 mg 1 pill once daily. Recommendation is for the patient follow up with GI as an outpatient to further evaluate. Patient may require EGD and colonoscopy as an outpatient. 7. Patient has anemia. Iron deficiency noted in the past. Patient will be started on multi vitamin with iron daily. Recommendation is for the patient to follow up with GI as an outpatient for EGD and colonoscopy to further evaluate. Recommendation is to recheck CBC in 1-2 weeks to monitor his progress. 8. Patient has obstructive sleep apnea. Recommendation is to continue with CPAP daily. Patient a follow up with pulmonology as an outpatient to further monitor. 9. Lifestyle modification education will be provided. Diet: AHA Activity: Ad thu Time spent managing pt's care (in minutes): 55
--- NOTE | 2018-03-23 15:46 | ECHO ---
HEIGHT: 5 ft 4 in WEIGHT: 254 lb 4.8 oz DATE OF STUDY: 03/23/[address]: Wanda Aleman MD 2-DIMENSIONAL: YES M.MODE: YES DOPPLER: YES COLOR FLOW: YES TDS: YES PORTABLE: NO DEFINITY: NO BUBBLE STUDY: NO DIAGNOSIS: CHEST PAIN, RULE OUT ACS CARDIAC HISTORY: CATHERIZATION: NO SURGERY: NO PROSTHETIC VALVE: NO PACEMAKER: NO MEASUREMENTS (cm) DIASTOLIC (NORMALS) SYSTOLIC (NORMALS) IVSd 1.0 (0.6-1.2) LA Diam 3.5 (1.9-4.0) LVEF 65% LVIDd 5.0 (3.5-5.7) LVIDs 3.2 (2.0-3.5) %FS 35% LVPWd 1.3 (0.6-1.2) Ao Diam 3.6 (2.0-3.7) 2 DIMENSIONAL ASSESSMENT: RIGHT ATRIUM: NORMAL LEFT ATRIUM: NORMAL RIGHT VENTRICLE: NORMAL LEFT VENTRICLE: NORMAL TRICUSPID VALVE: NORMAL MITRAL VALVE: NORMAL PULMONIC VALVE: NORMAL AORTIC VALVE: NORMAL PERICARDIAL EFFUSION: NONE AORTIC ROOT: NORMAL LEFT VENTRICULAR WALL MOTION: NORMAL DOPPLER/COLOR FLOW: NORMAL COMMENTS: NORMAL 2D ECHOCARDIOGRAM WITH DOPPLER. TECHNOLOGIST: Albert VÁSQUEZ
[2018-03-23] MEDS ORDERED: ATORVASTATIN 20 MG TAB PO SCH (21:00)
[2018-03-24] MEDS ORDERED: METFORMIN HCL 500 MG TAB PO SCH (09:00)
== END 2018-03-23 15:52 | disposition home or self-care (01) ==
LOC: ER 17:56 → ERHOLD 20:45 → 4TH 22:48
PROVIDERS: ADMIT Hospitalist; ATTEND Family Medicine
DX: R07.9 Chest pain, unspecified (principal); D50.9 Iron deficiency anemia, unspecified; G47.33 Obstructive sleep apnea (adult) (pediatric); Z68.41 Body mass index [BMI] 40.0-44.9, adult; I10 Essential (primary) hypertension; E11.9 Type 2 diabetes mellitus without complications; E78.5 Hyperlipidemia, unspecified; E66.01 Morbid (severe) obesity due to excess calories; Z86.73 Personal history of transient ischemic attack (TIA), and cerebral infarction without residual deficits; Z87.891 Personal history of nicotine dependence
CPT/HCPCS: 36415; 71045; 78452; 80048; 80061; 80076; 81003; 82550; 82553; 82962; 83735; 83880; 84484; 85025; 85610; 85730; 93005; 93017; 93306; 96374; 96375; 99285; A9500; G0378; J2405; J2785

== ENCOUNTER 2018-04-01 11:06 | Emergency (ER) | payer OTHER ==
[2018-04-01 12:15] LABS: Absolute Lymphocytes (CBC) 2.2 K/uL (0.7-4.9); Absolute Monocytes 0.6 K/uL (0.1-1.3); Absolute Neutrophil 5.4 K/uL (1.8-8.0); Eosinophils % 4.7 % (0-4.4); Hematocrit 32.1 % (39.6-49.0); Lymphocytes % 24.9 % (15.3-44.8); MCH 23.1 pg (27.0-35.0); MCV 73.7 fL (80-100); MPV 10.2 fL (7.6-11.3); Monocytes % 7.4 % (3.3-12.3); RBC Red Blood Cell Count 4.35 M/uL (4.33-5.43)
[2018-04-01 12:19] LABS: Bicarbonate 24 mEq/L (21-31); Glucose Level 154 mg/dL (65-120); Potassium 3.6 mEq/L (3.6-5.0); Sodium Level 138 mEq/L (135-145)
[2018-04-01 12:22] LABS: BUN Blood Urea Nitrogen 16 mg/dL (6-20); Creatine Phosphokinase 109 IU/L (22-269)
[2018-04-01 12:28] LABS: CKMB Creatine Kinase MB 1.5 ng/ml (0.3-4.0)
--- NOTE | 2018-04-01 13:32 | RAD REPORT ---
EXAM DESCRIPTION: RAD - Chest Single View - 04/01/2018 12:59 pm CLINICAL HISTORY: Chest pain COMPARISON: March 22 TECHNIQUE: AP portable chest image was obtained 1251 hours . FINDINGS: Lungs are clear. Heart and vasculature are normal. No measurable pleural effusion and no p neumothorax. No gross bony abnormality seen. No acute aortic findings suspected. IMPRESSION: No acute cardiopulmonary process. No significant interval change.
--- NOTE | 2018-04-01 13:46 | EKG ---
Test Date: 2018-04-01 Test Time: 11:28:18 Small Equipment Operator: KAY MEASUREMENT RESULTS: Intervals: Rate: 66 VT: 148 QRSD: 88 QT: 430 QTc: 450 [place]: P: 21 VT: 148 QRS: 31 T: 21 INTERPRETIVE STATEMENTS: Normal sinus rhythm Normal ECG Compared to ECG 03/22/2018 22:15:49 No significant changes Electronically Signed On 04-01-18 13:45:28 CDT by Patel Gresham
--- NOTE | 2018-04-01 14:43 | ER ---
Nurse's Notes [facility] Name: Taiwo Chery Age: 57 yrs Sex: Male : 1960 Arrival Date: 04/01/2018 Time: 11:09 Bed 18 Private MD: Catarino Brandt E Diagnosis: Chest pain, unspecified;Depression Presentation: 04/01 11:17 Presenting complaint: states: Sternal chest pain that started this AM, sharp pain aj with deep breathing and pain upon palpation to left chest. Patient is calm and in NAD. Skin is pink, warm and dry. Admitted to this facility 2 weeks ago for CP rule out [place]. Patient had follow up with assistant clinical director next week. Transition of care: patient was not received from another setting of care. Onset of symptoms was April 01, 2018. Care prior to arrival: None. 11:17 Method Of Arrival: Wheelchair aj 11:17 Acuity: LEONARD 3 aj 11:53 Risk Assessment: Do you want to hurt yourself or someone else? Patient reports no hb desire to harm self or others. Initial Sepsis Screen: Does the patient meet any 2 criteria? No. Patient's initial sepsis screen is negative. Does the patient have a suspected source of infection? No. Patient's initial sepsis screen is negative. Triage Assessment: 11:19 General: Appears in no apparent distress. comfortable, Behavior is calm, cooperative, aj appropriate for age. Pain: Complains of pain in chest. Neuro: Level of Consciousness is awake, alert, obeys commands, Oriented to person, place, time, situation, Appropriate for age. Cardiovascular: Reports chest pain. Respiratory: Reports pain with respiration Airway is patent Respiratory effort is even, unlabored, Respiratory pattern is regular, symmetrical. Derm: Skin is intact, is healthy with good turgor, Skin is pink, warm \T\ dry. normal. Musculoskeletal: Reports pain in chest. Historical: - Allergies: 11:19 NKDA; aj - Home Meds: 11:19 aspirin 81 mg Oral TbEC 1 tab once daily [Active]; atenolol 25 mg Oral tab 1 tab once aj daily [Active]; enalapril maleate 20 mg Oral tab 1 tab once daily [Active]; metformin 500 mg Oral tr24 1 tab once daily [Active]; Zocor Oral [Active]; - PMHx: 11:19 Anxiety; Diabetes - NIDDM; Headaches; Hyperlipidemia; Hypertension; TIA; aj - Immunization history:: Adult Immunizations up to date. - Social history:: Smoking status: Patient/guardian denies using tobacco. - Family history:: not pertinent. - Ebola Screening: : Patient negative for fever greater than or equal to 101.5 degrees Fahrenheit, and additional compatible Ebola Virus Disease symptoms Patient denies exposure to infectious person Patient denies travel to an Ebola-affected area in the 21 days before illness onset. - Hospitalizations: : The patient was recently seen at [facility]. Screenin:35 Abuse screen: Denies threats or abuse. Denies injuries from another. Nutritional hb screening: No deficits noted. Tuberculosis screening: No symptoms or risk factors identified. Fall Risk None identified. Assessment: 11:45 General: Appears in no apparent distress. uncomfortable, Behavior is cooperative, hb anxious. Pain: Complains of pain in chest Pain does not radiate. Pain currently is 7 out of 10 on a pain scale. Quality of pain is described as pressure, sharp, Pain began 2-3 days ago. Neuro: Level of Consciousness is awake, alert, obeys commands, Oriented to person, place, time, situation. Cardiovascular: Heart tones S1 S2 present Capillary refill < 3 seconds Patient's skin is warm and dry. Respiratory: Airway is patent Trachea midline Respiratory effort is even, unlabored, Respiratory pattern is regular, symmetrical, Breath sounds are clear bilaterally. GI: No signs and/or symptoms were reported involving the gastrointestinal system. : No signs and/or symptoms were reported regarding the genitourinary system. EENT: No signs and/or symptoms were reported regarding the EENT system. Derm: No signs and/or symptoms reported regarding the dermatologic system. Skin is intact, is healthy with good turgor. Musculoskeletal: No signs and/or symptoms reported regarding the musculoskeletal system. 12:45 Reassessment: Patient appears in no apparent distress at this time. No changes from hb previously documented assessment. Patient and/or family updated on plan of care and expected duration. Pain level reassessed. Patient is alert, oriented x 3, equal unlabored respirations, skin warm/dry/pink. 13:27 Reassessment: Patient appears in no apparent distress at this time. No changes from hb previously documented assessment. Patient and/or family updated on plan of care and expected duration. Pain level reassessed. Patient is alert, oriented x 3, equal unlabored respirations, skin warm/dry/pink. Vital Signs: 11:19 BP 131 / 83; Pulse 70; Resp 20; Temp 97.9; Pulse Ox 99% on R/A; Weight 115.21 kg; aj Height 5 ft. 3 in. (160.02 cm); 12:30 BP 132 / 78; Pulse 66; Resp 18; Pulse Ox 100% on R/A; Pain 5/10; hb 13:28 BP 135 / 75; Pulse 64; Resp 17; Pulse Ox 100% on R/A; Pain 6/10; hb 11:19 Body Mass Index 44.99 (115.21 kg, 160.02 cm) aj ED Course: 11:09 Patient arrived in ED. sb2 11:09 Catarino Brandt MD is Private Physician. sb2 11:17 Abraham Omer MD is Attending Physician. rn 11:18 Triage completed. aj 11:19 Arm band placed on left wrist. Patient placed in an exam room. aj 11:21 Sommer Zelaya RN is Primary Nurse. hb 11:35 Patient has correct armband on for positive identification. Placed in gown. Bed in low hb position. Call light in reach. Side rails up X 1. front desk monitor on. Pulse ox on. NIBP on. 11:35 Patient maintains SpO2 saturation greater than 95% on room air. hb 11:39 EKG done, by pharmaceutical development technician. reviewed by Abraham Omer MD. at1 11:40 Missed attempt(s): 20 gauge in right antecubital area. Bleeding controlled, band aid hb applied, catheter tip intact. 11:45 Inserted saline lock: 20 gauge in left antecubital area, using aseptic technique. Blood hb collected. 12:59 Chest Single View In Process Unspecified. EDMS Administered Medications: No medications were administered Outcome: 14:43 Discharge ordered by . rn 15:14 Patient left the ED. hb Signatures: Dispatcher [employer] EDMS Meaghan Flannery RN RN aj Nieto, Roman, MD MD rn gonzales, Amanda, sheeter operator EKG Tat1 Sommer Zelaya RN RN hb Elaine John sb2
--- NOTE | 2018-04-01 14:44 | EDPHYS ---
Physician Documentation [facility] Name: Taiwo Chery Age: 57 yrs Sex: Male : 1960 Arrival Date: 04/01/2018 Time: 11:09 Bed 18 Private MD: Catarino Brandt E ED Physician Abraham Omer HPI: 04/01 11:28 This 57 yrs old Male presents to ER via Wheelchair with complaints of Chest rn Pain. 11:28 The patient or guardian reports chest pain that is located primarily in the substernal rn area. Onset: just prior to arrival. The pain does not radiate. Associated signs and symptoms: Pertinent positives: shortness of breath, Pertinent negatives: abdominal pain, dizziness, headache, lightheadedness, near syncope, vomiting. The chest pain is described as squeezing. Duration: The patient or guardian reports multiple episodes, that are intermittent, the episodes last approximately 5 minute(s). Modifying factors: The symptoms are alleviated by nothing. the symptoms are aggravated by nothing. The patient has experienced similar episodes in the past. reports chest pain on and off for 2 years, admitted here within a couple of weeks, neg workup including stress test, has f/u appt with cardiology next Friday, felt fine this AM, got to work, had sudden onset of chest tightness, intermittent, lasts for approx 5 min at a time, doesn't fully go away. Not as painful as last time seen here. . Historical: - Allergies: 11:19 NKDA; aj - Home Meds: 11:19 aspirin 81 mg Oral TbEC 1 tab once daily [Active]; atenolol 25 mg Oral tab 1 tab once aj daily [Active]; enalapril maleate 20 mg Oral tab 1 tab once daily [Active]; metformin 500 mg Oral tr24 1 tab once daily [Active]; Zocor Oral [Active]; - PMHx: 11:19 Anxiety; Diabetes - NIDDM; Headaches; Hyperlipidemia; Hypertension; TIA; aj - Immunization history:: Adult Immunizations up to date. - Social history:: Smoking status: Patient/guardian denies using tobacco. - Family history:: not pertinent. - Ebola Screening: : Patient negative for fever greater than or equal to 101.5 degrees Fahrenheit, and additional compatible Ebola Virus Disease symptoms Patient denies exposure to infectious person Patient denies travel to an Ebola-affected area in the 21 days before illness onset. - Hospitalizations: : The patient was recently seen at [facility]. ROS: 11:28 Constitutional: Negative for fever, chills, and weight loss, Eyes: Negative for injury, rn pain, redness, and discharge, Neck: Negative for injury, pain, and swelling, Cardiovascular: Negative for palpitations, and edema, Respiratory: Negative for cough, wheezing Abdomen/GI: Negative for abdominal pain, nausea, vomiting, diarrhea, and constipation, MS/Extremity: Negative for injury and deformity, Skin: Negative for injury, rash, and discoloration, Neuro: Negative for headache, weakness, numbness, tingling, and seizure. Exam: 11:28 Constitutional: This is a well developed, well nourished patient who is awake, alert, rn appears anxious Head/Face: Normocephalic, atraumatic. Eyes: Pupils equal round and reactive to light, extra-ocular motions intact. Lids and lashes normal. Conjunctiva and sclera are non-icteric and not injected. Cornea within normal limits. Periorbital areas with no swelling, redness, or edema. Neck: Trachea midline, no thyromegaly or masses palpated, and no cervical lymphadenopathy. Supple, full range of motion without nuchal rigidity, or vertebral point tenderness. No Meningismus. Cardiovascular: Regular rate and rhythm with a normal S1 and S2. No gallops, murmurs, or rubs. Normal PMI, no JVD. No pulse deficits. Respiratory: Lungs have equal breath sounds bilaterally, clear to auscultation and percussion. No rales, rhonchi or wheezes noted. No increased work of breathing, no retractions or nasal flaring. Abdomen/GI: Soft, non-tender, with normal bowel sounds. No distension or tympany. No guarding or rebound. No evidence of tenderness throughout. MS/ Extremity: Pulses equal, no cyanosis. Neurovascular intact. Full, normal range of motion. Equal circumference. Neuro: Awake and alert, GCS 15, oriented to person, place, time, and situation. Cranial nerves II-XII grossly intact. Motor strength 5/5 in all extremities. Sensory grossly intact. Cerebellar exam normal. Normal gait. Vital Signs: 11:19 BP 131 / 83; Pulse 70; Resp 20; Temp 97.9; Pulse Ox 99% on R/A; Weight 115.21 kg; aj Height 5 ft. 3 in. (160.02 cm); 12:30 BP 132 / 78; Pulse 66; Resp 18; Pulse Ox 100% on R/A; Pain 5/10; hb 13:28 BP 135 / 75; Pulse 64; Resp 17; Pulse Ox 100% on R/A; Pain 6/10; hb 11:19 Body Mass Index 44.99 (115.21 kg, 160.02 cm) aj MDM: 11:20 Patient medically screened. rn 14:40 Differential diagnosis: acute myocardial infarction, anxiety, chest wall pain, rn costochondritis, esophagitis, gastritis, gastroesophageal reflux disease (GERD), pleurisy, pneumothorax. Data reviewed: vital signs, nurses notes, old medical records, lab test result(s), EKG, radiologic studies, plain films, and as a result, I will discharge patient. Counseling: I had a detailed discussion with the patient and/or guardian regarding: the historical points, exam findings, and any diagnostic results supporting the discharge/admit diagnosis, lab results, radiology results, the need for outpatient follow up, to return to the emergency department if symptoms worsen or persist or if there are any questions or concerns that arise at home. Response to treatment: the patient's symptoms have mildly improved after treatment, and as a result, I will discharge patient. Special discussion: Based on the patient's history, exam, and Dx evaluation, there is no indication for emergent intervention or inpatient Tx. It is understood by the patient/guardian that if the Sx's persist or worsen they need to return immediately for re-evaluation. I discussed with the patient/guardian in detail that at this point there is no indication for admission to the hospital. It is understood, however, that if the symptoms persist or worsen the patient needs to return immediately for re-evaluation. ED course: Full recent w/u with normal stress test, has cardiology f/u, states thinks this is emotional, has been depressed for a coupl eof months, no energy, sleeping a lot, no interest in things. Neg w/u again today, agree with , has been on anti-depressants in past but stopped taking them, offered prescription, states will try again. . 04/01 11:55 Order name: Basic Metabolic Panel; Complete Time: 13:35 [facility] 04/01 11:55 Order name: Creatine Phosphokinase; Complete Time: 13:35 [facility] 04/01 11:55 Order name: CKMB Creatine Kinase MB; Complete Time: 13:35 [facility] 04/01 11:55 Order name: BNP B-Type Natriuretic Peptide; Complete Time: 13:35 [facility] 04/01 11:55 Order name: Troponin I; Complete Time: 13:35 [facility] 04/01 11:55 Order name: CBC with Automated Diff; Complete Time: 13:35 [facility] 04/01 11:55 Order name: D-Dimer; Complete Time: 13:35 [facility] 04/01 11:28 Order name: EKG; Complete Time: 11: rn 04/01 11:28 Order name: Cardiac monitoring; Complete Time: :45 04/01 11:28 Order name: EKG - Nurse/Tech; Complete Time: : 04/01 11:28 Order name: IV Saline Lock; Complete Time: 04/01 11:28 Order name: Labs collected and sent; Complete Time: 04/01 11:28 Order name: O2 Per Protocol; Complete Time: : rn 04/01 11:28 Order name: O2 Sat Monitoring; Complete Time: 04/01 12:21 Order name: Chest Single View; Complete Time: :35 [facility] Administered Medications: No medications were administered Disposition: 04/01/18 14:43 Discharged to Home. Impression: Chest pain, unspecified, Depression. - Condition is Stable. - Discharge Instructions: Nonspecific Chest Pain, Depression, Adult. - Prescriptions for Celexa 20 mg Oral Tablet - take 1 tablet by ORAL route once daily; 60 tablet. - Medication Reconciliation Form, Thank You Letter, Antibiotic Education, Prescription Opioid Use, Work release form, Family Work Release form. - Follow up: Private Physician; When: As needed; Reason: Recheck today's complaints, Re-evaluation by your physician. - Problem is new. - Symptoms have improved. Signatures: Dispatcher [employer] [facility] Meaghan Flannery RN RN aj Nieto, Roman, MD MD rn Baxter, Heather, RN RN hb Corrections: (The following items were deleted from the chart) 13:00 11:28 Chest Single View+RAD.RAD.BRZ ordered. [facility] EDMS 14:24 11:28 BASIC METABOLIC PANEL+C.LAB.BRZ ordered. EDMS EDMS 14:24 11:28 BNP+C.LAB.BRZ ordered. EDMS EDMS 14:24 11:28 CKMB+C.LAB.BRZ ordered. EDMS EDMS 14:24 11:28 CREATINE PHOSPHOKINASE+C.LAB.BRZ ordered. [facility] EDMS 14:25 11:28 CBC+H.LAB.BRZ ordered. [facility]CO EDMS 14:25 11:28 TROPONIN (EMERG DEPT USE ONLY)+C.LAB.BRZ ordered. [facility]CO EDMS 14:42 11:28 D-DIMER+COAG.LAB.BRZ ordered. [facility]CO EDMS 15:14 14:43 04/01/2018 14:43 Discharged to Home. Impression: Chest pain, unspecified; hb Depression. Condition is Stable. Forms are Medication Reconciliation Form, Thank You Letter, Antibiotic Education, Prescription Opioid Use. Follow up: Private Physician; When: As needed; Reason: Recheck today's complaints, Re-evaluation by your physician. Problem is new. Symptoms have improved. rn
== END 2018-04-01 15:14 | disposition home or self-care (01) ==
LOC: ER 11:06
DX: R07.9 Chest pain, unspecified (principal); F32.9 Major depressive disorder, single episode, unspecified; E11.9 Type 2 diabetes mellitus without complications; E78.5 Hyperlipidemia, unspecified; I10 Essential (primary) hypertension; Z86.73 Personal history of transient ischemic attack (TIA), and cerebral infarction without residual deficits
CPT/HCPCS: 36415; 71045; 80048; 82550; 82553; 83880; 84484; 85025; 85379; 93005; 99285

== ENCOUNTER 2018-11-06 18:05 | Emergency (ER) | payer OTHER ==
--- NOTE | 2018-11-06 20:15 | ER ---
Nurse's Notes [facility] Name: aTiwo Chery Age: 58 yrs Sex: Male : 1960 Arrival Date: 11/06/2018 Time: 18:07 Bed 16 Private MD: DIEGO NELSON Diagnosis: Pruritus Presentation: 11/06 19:07 Presenting complaint: Patient states: Itching all over body for more than 1 month. Had aj blood work done but have not gotten the results. 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 Transition of care: patient was not received from another setting of care. Onset: The symptoms/episode began/occurred last month. Anaphylaxis evaluation, the patient reports or I have noted the following symptoms which indicate a significant risk of anaphylaxis: no signs or symptoms of anaphylaxis were noted. Onset of symptoms was September 2018. Risk Assessment: Do you want to hurt yourself or someone else? Patient reports no desire to harm self or others. Initial Sepsis Screen: Does the patient meet any 2 criteria? No. Patient's initial sepsis screen is negative. Does the patient have a suspected source of infection? No. Patient's initial sepsis screen is negative. Care prior to arrival: None. 19:07 Method Of Arrival: Ambulatory aj 19:07 Acuity: LEONARD 5 aj Triage Assessment: 19:10 General: Appears in no apparent distress. comfortable, Behavior is drowsy. Pain: Denies aj pain. Neuro: Level of Consciousness is awake, alert, obeys commands, Oriented to person, place, time, situation, Appropriate for age. Respiratory: Airway is patent Respiratory effort is even, unlabored, Respiratory pattern is regular, symmetrical. Derm: Skin is intact, is healthy with good turgor, Skin is pink, warm \T\ dry. normal, Rash noted that is itchy, on entire body. Historical: - Allergies: 19:10 NKDA; aj - Home Meds: 19:10 aspirin 81 mg Oral TbEC 1 tab once daily [Active]; atenolol 25 mg Oral tab 1 tab once aj daily [Active]; enalapril maleate 20 mg Oral tab 1 tab once daily [Active]; metformin 500 mg Oral tr24 1 tab once daily [Active]; Zocor Oral [Active]; - PMHx: 19:10 Anxiety; Diabetes - NIDDM; Headaches; Hyperlipidemia; Hypertension; TIA; aj - Immunization history:: Adult Immunizations up to date. - Social history:: Smoking status: Patient/guardian denies using tobacco. - Ebola Screening: : Patient negative for fever greater than or equal to 101.5 degrees Fahrenheit, and additional compatible Ebola Virus Disease symptoms Patient denies exposure to infectious person Patient denies travel to an Ebola-affected area in the 21 days before illness onset No symptoms or risks identified at this time. Screenin:30 Abuse screen: Denies threats or abuse. Nutritional screening: No deficits noted. jb4 Tuberculosis screening: No symptoms or risk factors identified. Fall Risk None identified. Assessment: 19:30 General: Appears in no apparent distress. comfortable, Behavior is appropriate for age. jb4 Pain: Denies pain. Neuro: Level of Consciousness is awake, alert, obeys commands, Oriented to person, place, time, situation. Cardiovascular: Patient's skin is warm and dry. Respiratory: Airway is patent Respiratory effort is even, unlabored, Respiratory pattern is regular, symmetrical, Breath sounds are clear bilaterally. GI: No signs and/or symptoms were reported involving the gastrointestinal system. : No signs and/or symptoms were reported regarding the genitourinary system. EENT: No signs and/or symptoms were reported regarding the EENT system. Derm: Skin is intact, Skin is pink, warm \T\ dry. Rash noted that is itchy, red, raised, on right elbow and left elbow. Musculoskeletal: Circulation, motion, and sensation intact. 20:28 Reassessment: Patient is alert, oriented x 3, equal unlabored respirations, skin bb warm/dry/pink. pt and spouse verbalized understanding of and agree to plan of care discharge instructions given pt ambulated with steady gait to exit accompanied by family. Vital Signs: 19:10 BP 135 / 76; Pulse 72; Resp 19; Temp 98.7; Pulse Ox 99% on R/A; Weight 113.4 kg; Height aj 5 ft. 1 in. (154.94 cm); 20:29 BP 124 / 64; Pulse 62; Resp 14 S; Temp 99(O); Pulse Ox 100% on R/A; bb 19:10 Body Mass Index 47.24 (113.40 kg, 154.94 cm) ED Course: 18:07 Patient arrived in ED. sb2 18:07 DIEGO NELSON is Private Physician. sb2 19:10 Triage completed. 19:10 Arm band placed on right wrist. Patient placed in waiting room, Patient notified of wait time. 19:21 Faustino Harley, RN is Primary Nurse. jb4 19:24 Hua Villegas PA is PHCP. [facility] 19:24 Errol Montez MD is Attending Physician. [facility] 19:30 Patient has correct armband on for positive identification. Bed in low position. Call jb4 light in reach. Side rails up X 1. Pulse ox on. NIBP on. 20:31 No provider procedures requiring assistance completed. Patient did not have IV access bb during this emergency room visit. Administered Medications: No medications were administered Outcome: 20:14 Discharge ordered by MD. [facility] 20:31 Discharged to home ambulatory, with family. bb 20:31 Condition: stable 20:31 Discharge instructions given to patient, Instructed on discharge instructions, follow up and referral plans. medication usage, Demonstrated understanding of instructions, follow-up care, medications, Prescriptions given X 2. 20:31 Patient left the ED. bb Signatures: Meaghan Flannery, RN RN Hua Hawthorne PA PA Taty Dietz RN RN Faustino Gonsales, RN RN jb4 Elaine John sb2 Corrections: (The following items were deleted from the chart) 19:52 19:30 Respiratory: Airway is patent Respiratory effort is even, unlabored, Respiratory jb4 pattern is regular, symmetrical, jb4
--- NOTE | 2018-11-06 20:15 | EDPHYS ---
Physician Documentation [facility] Name: Taiwo Chery Age: 58 yrs Sex: Male : 1960 Arrival Date: 11/06/2018 Time: 18:07 Bed 16 Private MD: DIEGO NELSON ED Physician Errol Montez HPI: 11/06 19:37 This 58 yrs old Male presents to ER via Ambulatory with complaints of Itching, jmm Rash. 19:37 The patient's rash thought to be caused by an unknown cause. The rash is located on the jmm body diffusely. Onset: The symptoms/episode began/occurred gradually, 1 month(s) ago. Associated signs and symptoms: Pertinent positives: itching, Pertinent negatives: difficulty breathing, fever, nausea, swelling of lips, swelling of throat, swelling of tongue, vomiting. This is a 58 year old male with a history of anxiety, dm, that presents to the ED with rash, hives, with itching ongoing for the past month. Patient denies fever, abdominal pain, vomiting. Was evaluated by PCP and is awaiting lab results. Denies shortness of breath, chest pain. . Historical: - Allergies: 19:10 NKDA; aj - Home Meds: 19:10 aspirin 81 mg Oral TbEC 1 tab once daily [Active]; atenolol 25 mg Oral tab 1 tab once aj daily [Active]; enalapril maleate 20 mg Oral tab 1 tab once daily [Active]; metformin 500 mg Oral tr24 1 tab once daily [Active]; Zocor Oral [Active]; - PMHx: 19:10 Anxiety; Diabetes - NIDDM; Headaches; Hyperlipidemia; Hypertension; TIA; aj - Immunization history:: Adult Immunizations up to date. - Social history:: Smoking status: Patient/guardian denies using tobacco. - Ebola Screening: : Patient negative for fever greater than or equal to 101.5 degrees Fahrenheit, and additional compatible Ebola Virus Disease symptoms Patient denies exposure to infectious person Patient denies travel to an Ebola-affected area in the 21 days before illness onset No symptoms or risks identified at this time. ROS: 19:37 Constitutional: Negative for fever, chills, and weight loss, Cardiovascular: Negative jmm for chest pain, palpitations, and edema, Respiratory: Negative for shortness of breath, cough, wheezing, and pleuritic chest pain. 19:37 Skin: Positive for rash. 19:37 Allergy/Immunology: Positive for pruritus. 19:37 All other systems are negative. Exam: 19:37 Constitutional: This is a well developed, well nourished patient who is awake, alert, jmm and in no acute distress. Head/Face: atraumatic. Eyes: EOMI, no conjunctival erythema appreciated ENT: Moist Mucus Membranes Neck: Trachea midline, Supple Chest/axilla: Normal chest wall appearance and motion. Cardiovascular: Regular rate and rhythm. No edema appreciated Respiratory: Normal respirations, no respiratory distress appreciated Abdomen/GI: Non distended, soft Back: Normal ROM 19:37 Skin: Appearance: Color: normal in color, no rash present. 19:37 Neuro: Orientation: is normal, Mentation: is normal, Memory: is normal, Gait: is steady. 19:37 Psych: Behavior/mood is pleasant, cooperative. Vital Signs: 19:10 BP 135 / 76; Pulse 72; Resp 19; Temp 98.7; Pulse Ox 99% on R/A; Weight 113.4 kg; Height aj 5 ft. 1 in. (154.94 cm); 20:29 BP 124 / 64; Pulse 62; Resp 14 S; Temp 99(O); Pulse Ox 100% on R/A; bb 19:10 Body Mass Index 47.24 (113.40 kg, 154.94 cm) aj MDM: 19:37 Patient medically screened. [facility] 20:12 Data reviewed: vital signs, nurses notes. Counseling: I had a detailed discussion with [facility] the patient and/or guardian regarding: the historical points, exam findings, and any diagnostic results supporting the discharge/admit diagnosis, the need for outpatient follow up, to return to the emergency department if symptoms worsen or persist or if there are any questions or concerns that arise at home. Administered Medications: No medications were administered Disposition: 22:42 Co-signature as Attending Physician, Errol Montez MD I agree with the assessment and kdr plan of care. Disposition: 11/06/18 20:14 Discharged to Home. Impression: Pruritus. - Condition is Stable. - Discharge Instructions: Pruritus. - Prescriptions for Hydroxyzine HCl 25 mg Oral Tablet - take 1 tablet by ORAL route every 6 hours As needed; 20 tablet. Medrol (Duran) 4 mg Oral Tablets, Dose Pack - take 1 tablet by ORAL route as directed - follow package instructions; 1 packet. - Medication Reconciliation Form, Thank You Letter, Antibiotic Education, Prescription Opioid Use form. - Follow up: Private Physician; When: 2 - 3 days; Reason: Recheck today's complaints, Continuance of care, Re-evaluation by your physician. Signatures: Meaghan Flannery RN RN Errol Levy MD MD kdr Mickail, Joel, PA PA jmm Ballard, Brenda, RN RN bb Corrections: (The following items were deleted from the chart) 20:31 20:14 11/06/2018 20:14 Discharged to Home. Impression: Pruritus. Condition is Stable. bb Forms are Medication Reconciliation Form, Thank You Letter, Antibiotic Education, Prescription Opioid Use. Follow up: Private Physician; When: 2 - 3 days; Reason: Recheck today's complaints, Continuance of care, Re-evaluation by your physician. [facility]
== END 2018-11-06 20:31 | disposition home or self-care (01) ==
LOC: ER 18:05
DX: L29.9 Pruritus, unspecified (principal); E11.9 Type 2 diabetes mellitus without complications; E78.5 Hyperlipidemia, unspecified; I10 Essential (primary) hypertension; F41.9 Anxiety disorder, unspecified; Z79.82 Long term (current) use of aspirin; Z79.84 Long term (current) use of oral hypoglycemic drugs; Z79.899 Other long term (current) drug therapy; Z86.73 Personal history of transient ischemic attack (TIA), and cerebral infarction without residual deficits
CPT/HCPCS: 99283

== ENCOUNTER 2018-11-10 23:55 | Emergency (ER) | payer OTHER ==
[2018-11-11] MEDS ORDERED: ACETAMINOPHEN 500 MG TAB ONE (00:19)
[2018-11-11] MEDS ORDERED: NA CHLORIDE 0.9% 2,000 ML ONE (00:46)
[2018-11-11] MEDS ORDERED: ONDANSETRON 4 MG/2 ML VIAL ONE (00:46)
[2018-11-11] MEDS ORDERED: LORazepam 2 MG/ML VIAL ONE (00:55)
[2018-11-11 00:56] LABS: Absolute Lymphocytes (CBC) 1.1 K/uL (0.7-4.9); Absolute Neutrophil 13.7 K/uL (1.8-8.0); Basophils % 0.4 % (0-1.3); Eosinophils % 2.7 % (0-4.4); Hematocrit 38.8 % (39.6-49.0); Lymphocytes % 6.9 % (15.3-44.8); MPV 9.7 fL (7.6-11.3); Monocytes % 6.1 % (3.3-12.3); RBC Red Blood Cell Count 4.88 M/uL (4.33-5.43)
[2018-11-11 00:57] LABS: Protime INR 1.38
[2018-11-11 01:13] LABS: ALT/SGPT 54 U/L (12-78); AST/SGOT 48 U/L (15-37); Albumin 3.6 g/dL (3.4-5.0); Alkaline Phosphatase 102 U/L (45-117); BUN Blood Urea Nitrogen 14 mg/dL (7-18); Bicarbonate 23 mmol/L (21-32); Bilirubin Direct < 0.1 mg/dL (0-0.2); Bilirubin Total 0.2 mg/dL (0.2-1.0); Glucose Level 196 mg/dL (74-106); Magnesium 1.7 mg/dL (1.8-2.4); NT PRO-BNP 14 pg/mL (<125); Potassium 4.3 mmol/L (3.5-5.1); Protein, Total 7.7 g/dL (6.4-8.2); Sodium Level 136 mmol/L (136-145); Troponin (Emerg Dept Use Only) < 0.02 ng/mL (0.0-0.045)
[2018-11-11 01:19] LABS: Blood Gas Oxyhemoglobin 92.2 % (94-97); Blood O2 Saturation 94.4 % (92-98.5)
[2018-11-11] MEDS ORDERED: CLINDAMYCIN 900MG/D5W 900 MG/50 ML IVPB IV ONE (01:42)
[2018-11-11] MEDS ORDERED: NA CHLORIDE 0.9% 1,000 ML ONE (02:37)
[2018-11-11 02:49] LABS: Absolute Lymphocytes (CBC) 1.4 K/uL (0.7-4.9); Absolute Monocytes 1.3 K/uL (0.1-1.3); Absolute Neutrophil 11.8 K/uL (1.8-8.0); Basophils % 0.6 % (0-1.3); Eosinophils % 2.2 % (0-4.4); Hematocrit 34.8 % (39.6-49.0); Lymphocytes % 9.6 % (15.3-44.8); MPV 9.8 fL (7.6-11.3); Monocytes % 8.7 % (3.3-12.3); RBC Red Blood Cell Count 4.42 M/uL (4.33-5.43)
--- NOTE | 2018-11-11 03:21 | EDPHYS ---
Physician Documentation [facility] Name: Taiwo Chery Age: 58 yrs Sex: Male : 1960 Arrival Date: 11/11/2018 Time: 00:00 Bed 13 Private MD: Catarino Brandt E ED Physician Salomón Arambula HPI: 11/11 00:25 This 58 yrs old Male presents to ER via Ambulatory with complaints of pkl Headache, Fever. 00:25 The patient or guardian reports cough, described as moderate, with no sputum. Onset: pkl The symptoms/episode began/occurred 1 week(s) ago. Associated signs and symptoms: Pertinent positives: fever, nausea, headache started yesterday. Historical: - Allergies: 00:15 NKDA; bb - Home Meds: 00:15 aspirin 81 mg Oral TbEC 1 tab once daily [Active]; atenolol 25 mg Oral tab 1 tab once bb daily [Active]; metformin 500 mg Oral tr24 1 tab once daily [Active]; pantoprazole oral oral [Active]; aspirin 81 mg Oral chew 1 tab once daily [Active]; - PMHx: 00:15 Anxiety; Diabetes - NIDDM; Headaches; Hyperlipidemia; Hypertension; TIA; bb - PSHx: 00:15 None; bb - Immunization history:: Adult Immunizations up to date. - Social history:: Smoking status: Patient/guardian denies using tobacco, Patient/guardian denies using alcohol, street drugs. - Ebola Screening: : No symptoms or risks identified at this time. ROS: 00:25 Eyes: Negative for injury, pain, redness, and discharge, ENT: Negative for injury, pkl pain, and discharge, Neck: Negative for injury, pain, and swelling, Cardiovascular: Negative for chest pain, palpitations, and edema. 00:25 Respiratory: Positive for cough, with no reported sputum. 00:25 Abdomen/GI: Positive for nausea. 00:25 Back: Negative for acute changes. 00:25 : Negative for urinary symptoms. 00:25 MS/extremity: Negative for acute changes. 00:25 Skin: Negative for rash. 00:25 Neuro: Positive for headache. Exam: 00:25 Head/Face: Normocephalic, atraumatic. Eyes: Pupils equal round and reactive to light, pkl extra-ocular motions intact. Lids and lashes normal. Conjunctiva and sclera are non-icteric and not injected. Cornea within normal limits. Periorbital areas with no swelling, redness, or edema. ENT: Nares patent. No nasal discharge, no septal abnormalities noted. Tympanic membranes are normal and external auditory canals are clear. Oropharynx with no redness, swelling, or masses, exudates, or evidence of obstruction, uvula midline. Mucous membranes moist. Neck: Trachea midline, no thyromegaly or masses palpated, and no cervical lymphadenopathy. Supple, full range of motion without nuchal rigidity, or vertebral point tenderness. No Meningismus. Chest/axilla: Normal chest wall appearance and motion. Nontender with no deformity. No lesions are appreciated. Cardiovascular: Regular rate and rhythm with a normal S1 and S2. No gallops, murmurs, or rubs. Normal PMI, no JVD. No pulse deficits. 00:25 Respiratory: the patient does not display signs of respiratory distress, Respirations: normal, Breath sounds: are clear throughout. 00:25 Abdomen/GI: Bowel sounds: normal, Palpation: abdomen is soft and non-tender, in all quadrants. 00:25 Back: Exam negative for acute changes. 00:25 : Exam negative for acute changes. 00:25 Musculoskeletal/extremity: Exam is negative for acute changes. 00:25 Skin: Exam negative for rash. 00:25 Neuro: Orientation: appropriate for stated age, Mentation: is normal, Cranial nerves: grossly normal, Motor: is normal. Vital Signs: 00:15 BP 142 / 78; Pulse 106; Resp 18 S; Temp 103.1(O); Pulse Ox 97% on R/A; Weight 113.4 kg bb (R); Height 5 ft. 2 in. (157.48 cm) (R); Pain 10/10; 01:20 BP 124 / 76; Pulse 103; Resp 16; Temp 101.9; Pulse Ox 96% on R/A; jb4 02:00 BP 102 / 54; Pulse 97; Resp 16; Pulse Ox 96% on R/A; jb4 03:00 BP 104 / 66; Pulse 81; Resp 16; Pulse Ox 96% on R/A; jb4 00:15 Body Mass Index 45.73 (113.40 kg, 157.48 cm) bb MDM: 00:06 Patient medically screened. pkl 03:19 Data reviewed: vital signs, nurses notes, lab test result(s). pkl 11/11 00:17 Order name: Flu; Complete Time: 01:12 bb 11/11 00:21 Order name: Strep; Complete Time: 01:12 pkl 11/11 00:22 Order name: Basic Metabolic Panel; Complete Time: 02:13 pkl 11/11 00:22 Order name: CBC with Diff; Complete Time: 01:12 pkl 11/11 00:22 Order name: LFT's; Complete Time: 02:13 pkl 11/11 00:22 Order name: Magnesium; Complete Time: 02:13 pkl 11/11 00:22 Order name: NT PRO-BNP; Complete Time: 02:13 pkl 11/11 00:22 Order name: PT-INR; Complete Time: 01:12 pkl 11/11 00:22 Order name: Troponin (emerg Dept Use Only); Complete Time: 02:13 pkl 11/11 00:22 Order name: Blood Culture Adult (2) pkl 11/11 00:22 Order name: Lactate; Complete Time: 02:13 pkl 11/11 00:22 Order name: Procalcitonin; Complete Time: 02:13 pkl 11/11 00:23 Order name: ABG; Complete Time: 02:13 pkl 11/11 02:25 Order name: CBC with Diff; Complete Time: 03:16 jb4 11/11 00:22 Order name: XRAY Chest (1 view) pkl 01 00:22 Order name: EKG; Complete Time: 00:23 pkl 11/11 00:22 Order name: Cardiac monitoring; Complete Time: 01:02 pkl 11/11 00:22 Order name: EKG - Nurse/Tech; Complete Time: 00:59 pkl 11/11 00:22 Order name: IV Saline Lock; Complete Time: 00:59 pkl 11/11 00:22 Order name: Labs collected and sent; Complete Time: 00:59 pkl 11/11 00:22 Order name: O2 Per Protocol; Complete Time: 00:59 pkl 11/11 02:25 Order name: Lactate; Complete Time: 03:16 jb4 11/11 00:22 Order name: O2 Sat Monitoring; Complete Time: 00:59 pkl Administered Medications: 00:18 Drug: Tylenol 1000 mg Route: PO; jb4 03:39 Follow up: Response: No adverse reaction; Temperature is decreased jb4 00:18 Not Given (Duplicate Order): Tylenol 1000 mg PO once jb4 00:48 Drug: Ativan 1 mg Route: IVP; Site: right antecubital; jd3 01:34 Follow up: Response: Anxiety decreased jb4 00:58 Drug: NS 0.9% 1000 ml Route: IV; Rate: 1000 ml; Site: right antecubital; bb 01:34 Follow up: Response: No adverse reaction; IV Status: Completed infusion jb4 00:58 Drug: Zofran 4 mg Route: IVP; Site: right antecubital; bb 01:41 Follow up: Response: No adverse reaction; Nausea is decreased jb4 01:38 Drug: Clindamycin 900 mg Route: IVPB; Infused Over: 30 mins; Site: right antecubital; jb4 02:08 Follow up: Response: No adverse reaction; IV Status: Completed infusion jb4 01:38 Drug: NS 0.9% 1000 ml Route: IV; Rate: 1 bolus; Site: right antecubital; jb4 02:42 Follow up: Response: No adverse reaction; IV Status: Completed infusion jb4 02:39 Drug: NS 0.9% 1000 ml Route: IV; Rate: 125 ml/hr; Site: right antecubital; jb4 03:39 Follow up: Response: No adverse reaction; IV Status: Completed infusion jb4 Disposition: 11/11/18 03:20 Discharged to Home. Impression: Strep pharyngitis. - Condition is Stable. - Prescriptions for Clindamycin HCl 300 mg Oral Capsule - take 1 capsule by ORAL route every 6 hours for 7 days; 28 capsule. Ultram 50 mg Oral Tablet - take 1 tablet by ORAL route every 8 hours As needed; 20 tablet. - Work release form, Medication Reconciliation Form, Thank You Letter, Antibiotic Education, Prescription Opioid Use form. - Follow up: Gretchen Yusuf MD; When: 1 - 2 days; Reason: Re-evaluation by your physician. - Problem is new. - Symptoms have improved. Signatures: Dispatcher [employer] EDMS Li Aguilar RN RN mw Lam, Pin, MD MD pkl Mickail, Joel, PA PA jmm Ballard, Brenda, RN RN Faustino Gonsales RN RN jb4 Gurwinder Beard RN RN jd3 Corrections: (The following items were deleted from the chart) 03:40 03:20 11/11/2018 03:20 Discharged to Home. Impression: Strep pharyngitis. Condition is jb4 Stable. Forms are Medication Reconciliation Form, Thank You Letter, Antibiotic Education, Prescription Opioid Use. Follow up: Gretchen Yusuf; When: 1 - 2 days; Reason: Re-evaluation by your physician. Problem is new. Symptoms have improved. pkl
--- NOTE | 2018-11-11 03:21 | ER ---
Nurse's Notes [facility] Name: Taiwo Chery Age: 58 yrs Sex: Male : 1960 Arrival Date: 11/11/2018 Time: 00:00 Bed 13 Private MD: Catarino Brandt E Diagnosis: Strep pharyngitis Presentation: 11/11 00:12 Presenting complaint: states: pt has had a cough x one week with congestion, runny bb nose, the last 2 days he has had a fever with nausea and a headache. Transition of care: patient was not received from another setting of care. Onset of symptoms was November 05, 2018. Risk Assessment: Do you want to hurt yourself or someone else? Patient reports no desire to harm self or others. Initial Sepsis Screen: Does the patient meet any 2 criteria? No. Patient's initial sepsis screen is negative. Does the patient have a suspected source of infection? No. Patient's initial sepsis screen is negative. Care prior to arrival: None. 00:12 Method Of Arrival: Ambulatory bb 00:12 Acuity: LEONARD 3 bb Historical: - Allergies: 00:15 NKDA; bb - Home Meds: 00:15 aspirin 81 mg Oral TbEC 1 tab once daily [Active]; atenolol 25 mg Oral tab 1 tab once bb daily [Active]; metformin 500 mg Oral tr24 1 tab once daily [Active]; pantoprazole oral oral [Active]; aspirin 81 mg Oral chew 1 tab once daily [Active]; - PMHx: 00:15 Anxiety; Diabetes - NIDDM; Headaches; Hyperlipidemia; Hypertension; TIA; bb - PSHx: 00:15 None; bb - Immunization history:: Adult Immunizations up to date. - Social history:: Smoking status: Patient/guardian denies using tobacco, Patient/guardian denies using alcohol, street drugs. - Ebola Screening: : No symptoms or risks identified at this time. Screenin:30 Abuse screen: Denies threats or abuse. Nutritional screening: No deficits noted. jb4 Tuberculosis screening: No symptoms or risk factors identified. Fall Risk None identified. Assessment: 00:30 General: Appears in no apparent distress. uncomfortable, Behavior is cooperative, jb4 anxious. Pain: Denies pain. Neuro: Level of Consciousness is awake, alert, obeys commands, Oriented to person, place, time, situation. Cardiovascular: Heart tones S1 S2 present Patient's skin is warm and dry. Rhythm is sinus tachycardia. Respiratory: Airway is patent Respiratory effort is even, unlabored, Respiratory pattern is regular, symmetrical, Breath sounds are clear bilaterally. GI: Abdomen is non-distended, obese, Bowel sounds present X 4 quads. Reports nausea. : No signs and/or symptoms were reported regarding the genitourinary system. EENT: No signs and/or symptoms were reported regarding the EENT system. Derm: Skin is intact, Skin is pink, warm \T\ dry. Musculoskeletal: Circulation, motion, and sensation intact. 01:20 Reassessment: Patient appears in no apparent distress at this time. Patient and/or jb4 family updated on plan of care and expected duration. Pain level reassessed. Cardiovascular: Patient's skin is warm and dry. Rhythm is sinus tachycardia. Respiratory: Airway is patent Respiratory effort is even, unlabored, Respiratory pattern is regular, symmetrical. 02:00 Reassessment: Patient appears in no apparent distress at this time. Patient and/or jb4 family updated on plan of care and expected duration. Pain level reassessed. Patient is alert, oriented x 3, equal unlabored respirations, skin warm/dry/pink. 03:00 Reassessment: Patient appears in no apparent distress at this time. Patient and/or jb4 family updated on plan of care and expected duration. Pain level reassessed. Patient is alert, oriented x 3, equal unlabored respirations, skin warm/dry/pink. 03:35 Reassessment: Patient appears in no apparent distress at this time. Patient and/or jb4 family updated on plan of care and expected duration. Pain level reassessed. Patient is alert, oriented x 3, equal unlabored respirations, skin warm/dry/pink. Discussed D/c, F/u with pt and pt's , denies questions or concerns. Vital Signs: 00:15 BP 142 / 78; Pulse 106; Resp 18 S; Temp 103.1(O); Pulse Ox 97% on R/A; Weight 113.4 kg bb (R); Height 5 ft. 2 in. (157.48 cm) (R); Pain 10/10; 01:20 BP 124 / 76; Pulse 103; Resp 16; Temp 101.9; Pulse Ox 96% on R/A; jb4 02:00 BP 102 / 54; Pulse 97; Resp 16; Pulse Ox 96% on R/A; jb4 03:00 BP 104 / 66; Pulse 81; Resp 16; Pulse Ox 96% on R/A; jb4 00:15 Body Mass Index 45.73 (113.40 kg, 157.48 cm) bb ED Course: 00:00 Patient arrived in ED. am2 00:01 Catarino Brandt MD is Private Physician. am2 00:06 Salomón Arambula MD is Attending Physician. pkl 00:14 Triage completed. bb 00:15 Arm band placed on Patient placed in an exam room, on a stretcher, on pulse oximetry. bb Family accompanied patient. 00:17 Faustino Harley, LELE is Primary Nurse. jb4 00:27 Flu Sent. jd3 00:27 Strep Sent. jd3 00:30 Patient has correct armband on for positive identification. Placed in gown. Bed in low jb4 position. Call light in reach. Side rails up X 1. nuclear monitoring technician on. Pulse ox on. NIBP on. 00:40 X-ray completed. Portable x-ray completed in exam room. Patient tolerated procedure kw well. 00:43 XRAY Chest (1 view) In Process Unspecified. EDMS 01:17 Notified ED physician of a critical lab result(s). lactate of 4.6 Dr Arambula notified. bb 03:20 Gretchen Yusuf MD is Referral Physician. pkl 03:35 No provider procedures requiring assistance completed. Patient did not have IV access jb4 during this emergency room visit. Administered Medications: 00:18 Drug: Tylenol 1000 mg Route: PO; jb4 03:39 Follow up: Response: No adverse reaction; Temperature is decreased jb4 00:18 Not Given (Duplicate Order): Tylenol 1000 mg PO once jb4 00:48 Drug: Ativan 1 mg Route: IVP; Site: right antecubital; jd3 01:34 Follow up: Response: Anxiety decreased jb4 00:58 Drug: NS 0.9% 1000 ml Route: IV; Rate: 1000 ml; Site: right antecubital; bb 01:34 Follow up: Response: No adverse reaction; IV Status: Completed infusion jb4 00:58 Drug: Zofran 4 mg Route: IVP; Site: right antecubital; bb 01:41 Follow up: Response: No adverse reaction; Nausea is decreased jb4 01:38 Drug: Clindamycin 900 mg Route: IVPB; Infused Over: 30 mins; Site: right antecubital; jb4 02:08 Follow up: Response: No adverse reaction; IV Status: Completed infusion jb4 01:38 Drug: NS 0.9% 1000 ml Route: IV; Rate: 1 bolus; Site: right antecubital; jb4 02:42 Follow up: Response: No adverse reaction; IV Status: Completed infusion jb4 02:39 Drug: NS 0.9% 1000 ml Route: IV; Rate: 125 ml/hr; Site: right antecubital; jb4 03:39 Follow up: Response: No adverse reaction; IV Status: Completed infusion jb4 Outcome: 03:20 Discharge ordered by . pkludwig 03:35 Discharged to home ambulatory, with family. jb4 03:35 Condition: stable 03:35 Discharge instructions given to patient, significant other, Instructed on discharge instructions, follow up and referral plans. medication usage, Demonstrated understanding of instructions, follow-up care, medications, Prescriptions given X 2. 03:40 Patient left the ED. jb4 Signatures: Dispatcher [employer] EDSalomón Hope MD MD pkTaty Tariq RN RN Isabella Garrison James, RN RN jb4 Meaghan Borges Jonathon, RN RN jd3
--- NOTE | 2018-11-11 07:56 | EKG ---
Test Date: 2018-11-11 Test Time: 00:51:48 Microbiology Technologist: MEASUREMENT RESULTS: Intervals: Rate: 102 MD: 140 QRSD: 78 QT: 342 QTc: 445 [place]: P: 40 MD: 140 QRS: 32 T: 41 INTERPRETIVE STATEMENTS: Sinus tachycardia Otherwise normal ECG Compared to ECG 04/01/2018 11:28:18 Sinus rhythm no longer present Electronically Signed On 11-11-18 07:55:30 GOVERNMENT RELATIONS MANAGER by Patel Gresham
--- NOTE | 2018-11-11 08:31 | RAD REPORT ---
EXAM DESCRIPTION: RAD - Chest Single View - 11/11/2018 12:43 am CLINICAL HISTORY: Chest pain, cough, fever COMPARISON: March 2018 TECHNIQUE: AP portable chest image was obtained . FINDINGS: Lungs are clear. Heart and vasculature are normal. No measurable pleural effusion and no p neumothorax. No acute bony abnormality seen. No acute aortic findings suspected. IMPRESSION: No acute cardiopulmonary process. No significant change from comparison.
== END 2018-11-11 03:40 | disposition home or self-care (01) ==
LOC: ER 23:55
DX: J02.0 Streptococcal pharyngitis (principal); E11.9 Type 2 diabetes mellitus without complications; I10 Essential (primary) hypertension; Z86.73 Personal history of transient ischemic attack (TIA), and cerebral infarction without residual deficits
CPT/HCPCS: 36415; 71045; 80048; 80076; 82805; 83605; 83735; 83880; 84145; 84484; 85025; 85610; 87040; 87081; 87804; 93005; 96361; 96365; 96375; 99284; J2405; J7030

== ENCOUNTER 2019-03-11 18:44 | Emergency (ER) | payer OTHER ==
--- OUTSIDE RECORDS SUMMARY | 2019-03-11 18:45 | XMS REPORT ---
:1960 [facility] [address] [place] [address] Care Team Providers Name Role Phone Unavailable Unavailable Unavailable Payers Payer Name Policy Type Policy Number Effective Date Expiration Date Problems This patient has no known problems. Allergies, Adverse Reactions, Alerts Allergy Allergy Status Severity Reaction(s) Onset Inactive Treating Comments Name Type Date Date Clinician No Known DA Active U 2018-12 Allergies -19 00:00:0 0 Medications This patient has no known medications. Results Test Description Test Time Test Comments Text Results Atomic Results Result Comments - XR FLUOROSCOPY 0-60 MIN 2019-01-14 10:27:00 Name: TAIWO BEARD : 1960 Age/S: 58 / M [address] Unit #: [id number] Loc: [place] [address] Phys: Kevin Rollins MD Acct: [id number] Dis Date: Status: [place] [facility] [place]ONE #: [phone] Exam Date: 01/14/2019 0910 FAX #: Reason: PORT A CATH PLACEMENT EXAMS: CPT: [id number] XR FLUOROSCOPY 0-60 MIN 70880 Fluoro Time: 8 SEC DAP (Gy m2): Air Kerma (mGy): Examination: Operative fluoroscopy Location code: S17 Comparison: None Discussion: Clinical history is remarkable for Port-A-Cath placement. 8.4 seconds fluoroscopic time was utilized. Right-sided chest port is identified, catheter tip is at the cavoatrial junction. Impression: Please refer to the operative report. at 1027 Reported and signed by: Faustino Navarrete M.D. CC: Shamar SANDERS; Kevin Rollins MD PAGE 1 Signed Report Name: TAIWO BEARDland : 1960 Age/S: 58 / M [address] Unit #: [id number] Loc: [place] [address] Phys: Kevin Rollins MD Acct: [id number] Dis Date: Status: [place] [facility] [place] PHONE #: [phone] Exam Date: 01/14/2019 0910 FAX #: Reason: PORT A CATH PLACEMENT EXAMS: CPT: [id number] XR FLUOROSCOPY 0-60 MIN 52461 Fluoro Time: 8 SEC DAP (Gy m2): Air Kerma (mGy): <Continued> Technologist: Sandy Lucero, RT(R)(CT); Mary Carbajal RT(R) [facility] Date/Time: 01/14/2019 (1027) [id number] Orig Print D/T: S: 01/14/2019 (1030) PAGE 2 Signed Report GLUCOSE BEDSIDE TESTING 2019-01-14 10:17:00 Test Item Value Reference Range Comments GLUCOSE BEDSIDE TESTING (test code=GLUBED) 140 mg/dL 70-110 - XR CHEST 1 [id number] 10:04:00 Name: TAIWO BEARD [place] : 1960 Age/S: 58 / M [address] Unit #: [id number] Loc: [place] [address] Phys: Kevin Rollins MD Acct: [id number] Dis Date: Status: [place] [facility] [place] PHONE #: [phone] Exam Date: 01/14/2019 0955 FAX #: Reason: port placement EXAMS: CPT: [id number] XR CHEST 1 V 54059 Fluoro Time: DAP (Gy m2): Air Kerma (mGy): EXAM: - XR CHEST 1 V HISTORY: Port placement Location code:C3 COMPARISON: None available time of interpretation. FINDINGS: Single AP view of the chest is provided. Right IJ Port-A-Cath with tip projecting about the distal SVC level is present. Added opacity alongthe right paratracheal region is seen. Heart size and vascularity are within normal limits. The lungs are clear of focal consolidation. No effusion, pneumothorax, or acute osseous abnormality. IMPRESSION: 1. Right IJ Port-A-Cath tip projects about the distal SVC level without pneumothorax. 2. Added opacity in the right paratrachealregion could represent adenopathy, enlarged thyroid gland, vascular prominence, or underlying mass lesion. Mediastinal hematoma given recent catheter placement is not excluded particularly given the lack of prior exams to determine whether this is acute after port placement. Consider chest CT with IV contrast. at 1004 Reported and signed by: Gadiel Baker MD CC: Shamar SANDERS; Kevin Rollins MD PAGE 1 Signed Report Name: TAIWO BEARD : 1960 Age/S: 58 / M [address] Unit #: [id number] Loc: [place] [address] Phys: Kevin Rollins MD Acct: [id number] Dis Date: Status: [facility] PHONE #: [phone] ExamDate: 01/14/2019 0955 FAX #: Reason: port placement EXAMS: CPT: [id number] XR CHEST 1 V 82746 Fluoro Time: DAP (Gy m2): Air Kerma (mGy): < Continued> Technologist: Taiwo Izquierdo, RT(R)(CT); Verenice Carbajal RT(R) [employer]nc[employer] Date/Time: 01/14/2019 (1004) [email or web address] Orig Print D/T: S: 01/14/2019 (1007) PAGE 2 Signed ReportGLUCOSE BEDSIDE [id number] 07: 20:00 Test Item Value Reference Range Comments GLUCOSE BEDSIDE TESTING (test code=GLUBED) 137 mg/dL 70-110 GLUCOSE BEDSIDE [id number] 17:20:00 Test Item Value Reference Range Comments GLUCOSE BEDSIDE TESTING (test code=GLUBED) 103 mg/dL 70-110 GLUCOSE BEDSIDE [id number] 11:28:00 Test Item Value Reference Range Comments GLUCOSE BEDSIDE TESTING (test code=GLUBED) 87 mg/dL 70-110 GLUCOSE BEDSIDE [id number] 07:23:00 Test Item Value Reference Range Comments GLUCOSE BEDSIDE TESTING (test code=GLUBED) 108 mg/dL 70-110 GLUCOSE BEDSIDE [id number] 20:29:00 Test Item Value Reference Range Comments GLUCOSE BEDSIDE TESTING (test code=GLUBED) 99 mg/dL 70-110 GLUCOSE BEDSIDE [id number] 16:28:00 Test Item Value Reference Range Comments GLUCOSE BEDSIDE TESTING (test code=GLUBED) 84 mg/dL 70-110 GLUCOSE BEDSIDE [id number] 11:30:00 Test Item Value Reference Range Comments GLUCOSE BEDSIDE TESTING (test code=GLUBED) 106 mg/dL 70-110 GLUCOSE BEDSIDE [id number] 07:38:00 Test Item Value Reference Range Comments GLUCOSE BEDSIDE TESTING (test code=GLUBED) 120 mg/dL 70-110 CBC W/AUTO [id number] 06:24:00 Test Item Value Reference Range Comments WHITE BLOOD CELL (test code=WBC) 10.6 K/mm3 3.5-11.0 RED BLOOD CELL (test code=RBC) 4.06 M/mm3 4.70-6.10 HEMOGLOBIN (test code=HGB) 10.4 G/DL 12.3-15.9 HEMATOCRIT (test code=HCT) 32.2 % 35.8-46.7 MEAN CELL VOLUME (test code=MCV) 79.3 Fl 86.3-98.9 MEAN CELL HGB (test code=MCH) 25.6 pg 28.9-34.4 MEAN CELL HGB CONCETRATION (test code=MCHC) 32.3 G/DL 32.1-34.5 RED CELL DISTRIBUTION WIDTH (test code=RDW) 16.4 SD 11.5-14.5 PLATELET COUNT (test code=PLT) 221.0 K/mm3 150-450 MEAN PLATELET VOLUME (test code=MPV) 12.20 fL 7.0-9.6 NEUTROPHIL % (test code=NT%) 73.0 % 40-76 LYMPHOCYTE % (test code=LY%) 17.5 % 20.5-51.1 MONOCYTE % (test code=MO%) 9.3 % 1.7-9.3 EOSINOPHIL % (test code=EO%) 0.1 % 0.0-6.0 BASOPHIL % (test code=BA%) 0.1 % 0.0-2.0 NEUTROPHIL # (test code=NT#) 7.73 K/mm3 1.8-7.6 LYMPHOCYTE # (test code=LY#) 1.9 K/mm3 0.6-3.0 MONOCYTE # (test code=MO#) 1.0 K/mm3 0.2-1.5 EOSINOPHIL # (test code=EO#) 0.0 K/mm3 0.0-0.4 BASOPHIL # (test code=BA#) 0.0 K/mm3 0.0-0.2 MANUAL DIFF REQUIRED (test code=MDIFF) NO DIFF/SCN CRITERIA GLUCOSE BEDSIDE [id number] 21:45:00 Test Item Value Reference Range Comments GLUCOSE BEDSIDE TESTING (test code=GLUBED) 135 mg/dL 70-110 BASIC METABOLIC [id number] 18:20:00 Test Item Value Reference Range Comments SODIUM (test code=NA) 142 mmol/L 134-147 POTASSIUM (test code=K) 4.2 mmol/L 3.4-5.0 CHLORIDE (test code=CL) 108 mmol/L 100-108 CARBON DIOXIDE (test code=CO2) 25 mmol/L 21-32 ANION GAP (test code=GAP) 9.0 GAP calc 4.0-15.0 GLUCOSE (test code=GLU) 140 MG/DL 70-110 BLOOD UREA NITROGEN (test code=BUN) 16 MG/DL 7-18 GLOMERULAR FILTRATION RATE (test >=60 max estimate estGFR >60 code=GFR) CREATININE (test code=CREAT) 0.9 MG/DL 0.8-1.3 CALCIUM (test code=CA) 8.1 MG/DL 8.5-10.1 [id number] 18:20:00 Test Item Value Reference Range Comments PHOSPHOROUS (test code=PHOS) 3.2 MG/DL 2.5-4.9 [id number] 18:20:00 Test Item Value Reference Range Comments MAGNESIUM (test code=MAG) 1.7 MG/DL 1.8-2.4 GLUCOSE BEDSIDE [id number] 16:54:00 Test Item Value Reference Range Comments GLUCOSE BEDSIDE TESTING (test code=GLUBED) 160 mg/dL 70-110 GLUCOSE BEDSIDE [id number] 14:29:00 Test Item Value Reference Range Comments GLUCOSE BEDSIDE TESTING (test code=GLUBED) 136 mg/dL 70-110 GLUCOSE BEDSIDE [id number] 07:31:00 Test Item Value Reference Range Comments GLUCOSE BEDSIDE TESTING (test code=GLUBED) 125 mg/dL 70-110
--- NOTE | 2019-03-11 19:21 | ER ---
Nurse's Notes [facility] Name: Taiwo Oquendo Age: 58 yrs Sex: Male : 1960 Arrival Date: 03/11/2019 Time: 18:46 Bed 20 Private MD: Diagnosis: Dysuria Presentation: 03/11 19:06 Presenting complaint: Patient states: burning with urination since yesterday, no fever, iw hx of colon cancer, on IV chemo, denies back pain, denies n/v/d. Transition of care: patient was not received from another setting of care. Onset of symptoms was March 10, 2019. Risk Assessment: Do you want to hurt yourself or someone else? Patient reports no desire to harm self or others. Initial Sepsis Screen: Does the patient meet any 2 criteria? No. Patient's initial sepsis screen is negative. Does the patient have a suspected source of infection? No. Patient's initial sepsis screen is negative. Care prior to arrival: None. 19:06 Method Of Arrival: Ambulatory iw 19:06 Acuity: LEONARD 3 iw Historical: - Allergies: 19:08 NKDA; iw - Home Meds: 19:08 aspirin 81 mg Oral TbEC 1 tab once daily [Active]; aspirin 81 mg Oral chew 1 tab once iw daily [Active]; atenolol 25 mg Oral tab 1 tab once daily [Active]; metformin 500 mg Oral tr24 1 tab once daily [Active]; pantoprazole Oral [Active]; - PMHx: 19:08 Anxiety; Diabetes - NIDDM; Headaches; Hyperlipidemia; Hypertension; TIA; colon cancer; iw - PSHx: 19:08 tumor removed from colon; iw - Immunization history:: Adult Immunizations up to date. - Social history:: Smoking status: Patient/guardian denies using tobacco. - Ebola Screening: : Patient negative for fever greater than or equal to 101.5 degrees Fahrenheit, and additional compatible Ebola Virus Disease symptoms Patient denies exposure to infectious person Patient denies travel to an Ebola-affected area in the 21 days before illness onset No symptoms or risks identified at this time. Screenin:20 Abuse screen: Denies threats or abuse. Denies injuries from another. Nutritional ed1 screening: No deficits noted. Tuberculosis screening: No symptoms or risk factors identified. Fall Risk None identified. Assessment: 19:20 General: Appears in no apparent distress. Behavior is calm, cooperative. Pain: Denies ed1 pain. Neuro: Level of Consciousness is awake, alert, obeys commands, Oriented to person, place, time, situation. Cardiovascular: Denies chest pain, Heart tones S1 S2 present. Respiratory: Airway is patent Respiratory effort is even, unlabored, Respiratory pattern is regular, symmetrical, Breath sounds are clear bilaterally. GI: No signs and/or symptoms were reported involving the gastrointestinal system. : Reports burning with urination. EENT: No signs and/or symptoms were reported regarding the EENT system. Derm: Skin is intact, is healthy with good turgor, Skin is dry, Skin is normal, Skin temperature is warm. Musculoskeletal: Circulation, motion, and sensation intact. Range of motion: intact in all extremities. Vital Signs: 19:08 BP 149 / 90; Pulse 69; Resp 16 S; Temp 98.8(O); Pulse Ox 100% on R/A; Weight 110.68 kg; iw Height 5 ft. 2 in. (157.48 cm); Pain 0/10; 19:33 BP 146 / 84; Pulse 70; Resp 19; Temp 98.2(O); Pulse Ox 99% on R/A; Pain 0/10; ed1 19:08 Body Mass Index 44.63 (110.68 kg, 157.48 cm) iw ED Course: 18:46 Patient arrived in ED. as 19:02 Andreia Thompson FNP-C [facility]. snw 19:02 Abraham Omer MD is Attending Physician. snw 19:07 Triage completed. iw 19:08 Arm band placed on. iw 19:14 Edna Davis, RN is Primary Nurse. ed1 19:16 Urine collected: clean catch specimen, clear. ed1 19:20 Patient has correct armband on for positive identification. Bed in low position. Call ed1 light in reach. Adult w/ patient. 19:33 No provider procedures requiring assistance completed. Patient did not have IV access ed1 during this emergency room visit. Administered Medications: 19:28 Drug: Cipro 500 mg Route: PO; ed1 19:28 Follow up: Response: Medication administered at discharge. ed1 Outcome: 19:21 Discharge ordered by . snw 19:33 Discharged to home ambulatory, with significant other. ed1 19:33 Condition: good 19:33 Discharge instructions given to patient, significant other, Instructed on discharge instructions, follow up and referral plans. medication usage, Demonstrated understanding of instructions, follow-up care, medications, Prescriptions given X 1. 19:34 Patient left the ED. ed1 Signatures: Andreia Thompson, SHIELD INSTALLER-C SHIELD INSTALLER-Csnw Griselda Gutierrez as Aisha Rand RN RN iw Edna Davis RN RN ed1
--- NOTE | 2019-03-11 19:22 | EDPHYS ---
Physician Documentation [facility] Name: Taiwo Oquendo Age: 58 yrs Sex: Male : 1960 Arrival Date: 03/11/2019 Time: 18:46 Bed 20 Private MD: ED Physician Abraham Omer HPI: 03/11 20:46 This 58 yrs old Male presents to ER via Ambulatory with complaints of Urinary snw Problem. 20:46 Onset: The symptoms/episode began/occurred suddenly, 2 day(s) ago, and became snw persistent. Associated signs and symptoms: The patient has no apparent associated signs or symptoms, Pertinent negatives: fever. Modifying factors: The patient symptoms are alleviated by nothing, the patient symptoms are aggravated by urinating. The patient has not experienced similar symptoms in the past. rec'ing IV chemo, no radiation. gets chemo every three weeks, has had three treatments, . Historical: - Allergies: 19:08 NKDA; iw - Home Meds: 19:08 aspirin 81 mg Oral TbEC 1 tab once daily [Active]; aspirin 81 mg Oral chew 1 tab once iw daily [Active]; atenolol 25 mg Oral tab 1 tab once daily [Active]; metformin 500 mg Oral tr24 1 tab once daily [Active]; pantoprazole Oral [Active]; - PMHx: 19:08 Anxiety; Diabetes - NIDDM; Headaches; Hyperlipidemia; Hypertension; TIA; colon cancer; iw - PSHx: 19:08 tumor removed from colon; iw - Immunization history:: Adult Immunizations up to date. - Social history:: Smoking status: Patient/guardian denies using tobacco. - Ebola Screening: : Patient negative for fever greater than or equal to 101.5 degrees Fahrenheit, and additional compatible Ebola Virus Disease symptoms Patient denies exposure to infectious person Patient denies travel to an Ebola-affected area in the 21 days before illness onset No symptoms or risks identified at this time. ROS: 20:46 Constitutional: Negative for fever, chills, and weight loss, Eyes: Negative for injury, snw pain, redness, and discharge, ENT: Negative for injury, pain, and discharge, Neck: Negative for injury, pain, and swelling, Cardiovascular: Negative for chest pain, palpitations, and edema, Respiratory: Negative for shortness of breath, cough, wheezing, and pleuritic chest pain, Abdomen/GI: Negative for abdominal pain, nausea, vomiting, diarrhea, and constipation, Back: Negative for injury and pain, MS/Extremity: Negative for injury and deformity, Skin: Negative for injury, rash, and discoloration, Neuro: Negative for headache, weakness, numbness, tingling, and seizure. 20:46 : Positive for urinary symptoms, burning with urination, foul smelling urine, Negative for hematuria, pelvic pain, flank pain, difficulty urinating, bladder incontinence, penile discharge, penile pain, testicular pain Exam: 20:46 Constitutional: This is a well developed, well nourished patient who is awake, alert, snw and in no acute distress. Head/Face: Normocephalic, atraumatic. Eyes: Pupils equal round and reactive to light, extra-ocular motions intact. Lids and lashes normal. Conjunctiva and sclera are non-icteric and not injected. Cornea within normal limits. Periorbital areas with no swelling, redness, or edema. ENT: Nares patent. No nasal discharge, no septal abnormalities noted. Tympanic membranes are normal and external auditory canals are clear. Oropharynx with no redness, swelling, or masses, exudates, or evidence of obstruction, uvula midline. Mucous membranes moist. Neck: Trachea midline, no thyromegaly or masses palpated, and no cervical lymphadenopathy. Supple, full range of motion without nuchal rigidity, or vertebral point tenderness. No Meningismus. Chest/axilla: Normal chest wall appearance and motion. Nontender with no deformity. No lesions are appreciated. Cardiovascular: Regular rate and rhythm with a normal S1 and S2. No gallops, murmurs, or rubs. Normal PMI, no JVD. No pulse deficits. Respiratory: Lungs have equal breath sounds bilaterally, clear to auscultation and percussion. No rales, rhonchi or wheezes noted. No increased work of breathing, no retractions or nasal flaring. Abdomen/GI: Soft, non-tender, with normal bowel sounds. No distension or tympany. No guarding or rebound. No evidence of tenderness throughout. Back: No spinal tenderness. No costovertebral tenderness. Full range of motion. Skin: Warm, dry with normal turgor. Normal color with no rashes, no lesions, and no evidence of cellulitis. MS/ Extremity: Pulses equal, no cyanosis. Neurovascular intact. Full, normal range of motion. Neuro: Awake and alert, GCS 15, oriented to person, place, time, and situation. Cranial nerves II-XII grossly intact. Motor strength 5/5 in all extremities. Sensory grossly intact. Cerebellar exam normal. Normal gait. Psych: Awake, alert, with orientation to person, place and time. Behavior, mood, and affect are within normal limits. Vital Signs: 19:08 BP 149 / 90; Pulse 69; Resp 16 S; Temp 98.8(O); Pulse Ox 100% on R/A; Weight 110.68 kg; iw Height 5 ft. 2 in. (157.48 cm); Pain 0/10; 19:33 BP 146 / 84; Pulse 70; Resp 19; Temp 98.2(O); Pulse Ox 99% on R/A; Pain 0/10; ed1 19:08 Body Mass Index 44.63 (110.68 kg, 157.48 cm) iw MDM: 19:06 Patient medically screened. snw 20:49 Data reviewed: vital signs, nurses notes. Data interpreted: Pulse oximetry: on room air snw is 99 %. Interpretation: normal. Counseling: I had a detailed discussion with the patient and/or guardian regarding: the historical points, exam findings, and any diagnostic results supporting the discharge/admit diagnosis, lab results, the need for outpatient follow up, to return to the emergency department if symptoms worsen or persist or if there are any questions or concerns that arise at home. Special discussion: I have referred the patient to see his PCP for further evaluation of high blood pressure. Based on the history and exam findings, there is no indication for further emergent testing or inpatient evaluation. I discussed with the patient/guardian the need to see the primary care provider for further evaluation of the symptoms. ED course: will prophylaxis tx patient as he is symptomatic. Pt has appt for bloodwork and eval per PCP on Friday. Pt to [facility] immediately for fever, worsening s/s. 03/11 19:11 Order name: Urine Culture snw 03/11 19:11 Order name: Urine Microscopic Only; Complete Time: 19:30 snw 03/11 19:11 Order name: Urine Dipstick-Ancillary (obtain specimen); Complete Time: 19:14 snw 03/11 19:32 Order name: Urine Dipstick--Ancillary (enter results) cm6 Administered Medications: 19:28 Drug: Cipro 500 mg Route: PO; ed1 19:28 Follow up: Response: Medication administered at discharge. ed1 Disposition: 03/12 07:00 Co-signature as Attending Physician, Abraham Omer MD. rn Disposition: 03/11/19 19:21 Discharged to Home. Impression: Dysuria. - Condition is Stable. - Discharge Instructions: Dysuria, How to Take a Sitz Bath. - Prescriptions for Cipro 500 mg Oral Tablet - take 1 tablet by ORAL route every 12 hours for 7 days; 14 tablet. - Medication Reconciliation Form, Thank You Letter, Antibiotic Education, Prescription Opioid Use, Family Work Release form. - Follow up: Private Physician; When: Friday as scheduled; Reason: Recheck today's complaints, Continuance of care, Re-evaluation by your physician. Follow up: Emergency Department; When: As needed; Reason: Fever > 102 F, Worsening of condition. Signatures: Dispatcher [employer] EDMS Andreia Thompson, MACHINE TOOL MECHANIC-C MACHINE TOOL MECHANIC-Csnw Aisha Rand RN RN iw Nieto, Roman, MD MD rn Riggs, Erika, RN RN ed1 Corrections: (The following items were deleted from the chart) 03/11 19:34 19:21 03/11/2019 19:21 Discharged to Home. Impression: Dysuria. Condition is Stable. ed1 Forms are Medication Reconciliation Form, Thank You Letter, Antibiotic Education, Prescription Opioid Use. Follow up: Private Physician; When: Friday as scheduled; Reason: Recheck today's complaints, Continuance of care, Re-evaluation by your physician. Follow up: Emergency Department; When: As needed; Reason: Fever > 102 F, Worsening of condition. snw
[2019-03-11 19:29] LABS: Urine Bacteria <20 /HPF (NONE SEEN); Urine Culture Reflex Order NOT NEEDED; Urine RBC <5 /HPF (NONE SEEN)
[2019-03-11] MEDS ORDERED: CIPROFLOXACIN HCL 500 MG TAB ONE (19:36)
[2019-03-11 20:53] LABS: Urine Blood NEGATIVE (NEG); Urine Glucose NEGATIVE (NEG); Urine Protein NEGATIVE (NEG)
== END 2019-03-11 19:34 | disposition home or self-care (01) ==
LOC: ER 18:44
DX: R30.0 Dysuria (principal); F41.9 Anxiety disorder, unspecified; E11.9 Type 2 diabetes mellitus without complications; E78.5 Hyperlipidemia, unspecified; I10 Essential (primary) hypertension; C18.9 Malignant neoplasm of colon, unspecified; Z79.84 Long term (current) use of oral hypoglycemic drugs; Z79.82 Long term (current) use of aspirin; Z86.73 Personal history of transient ischemic attack (TIA), and cerebral infarction without residual deficits
CPT/HCPCS: 81003; 81015; 87086; 87088; 99283

== ENCOUNTER 2019-03-28 14:19 | Emergency (ER) | payer OTHER ==
--- OUTSIDE RECORDS SUMMARY | 2019-03-28 14:21 | XMS REPORT ---
:1960 [facility] Address [address] [place] [address] Care Team Providers Name Role Phone Unavailable [...] FLUOROSCOPY 0-60 MIN 2019-01-14 10:27:00 Name: TAIWO BEARD[place] : 1960 Age/S: 58 / M [id number] Unit #: [id number] Loc: [place] [address] Phys: Kevin Rollins MD Acct: [id number] Dis Date: Status: [place] [facility] [place] #: [phone] Exam Date: 01/14/2019 0910 FAX #: Reason: PORT A CATH PLACEMENT EXAMS: CPT: [id number] XR FLUOROSCOPY 0-60 MIN 64453 Fluoro Time: 8 SEC DAP (Gy m2): [...] PAGE 1 Signed Report Name: TAIWO BEARD [place] : 1960 Age/S: 58 / M [id number] Unit #: [id number] Loc: [place] [address] Phys: Kevin Rollins MD Acct: [id number] Dis Date: Status: REG [facility] [place] PHONE #: [phone] Exam Date: 01/14/2019 0910 FAX #: Reason: PORT A CATH PLACEMENT EXAMS: CPT: [id number] XR FLUOROSCOPY 0-60 MIN 83265 Fluoro Time: 8 SEC DAP (Gy m2): Air Kerma (mGy): <Continued> Technologist: Sandy Lucero, RT(R)(CT); Mary Carbajal RT(R) [facility] Date/Time: 01/14/2019 (1027) [email or web address] Orig Print D/T: S: 01/14/2019 (1030) PAGE 2 Signed Report GLUCOSE BEDSIDE TESTING 2019-01-14 10:17:00 Test Item Value Reference Range Comments GLUCOSE BEDSIDE TESTING (test code=GLUBED) 140 mg/dL 70-110 - XR CHEST 1 [id number] 10:04:00 Name: TAIWO BEARD [place] : 1960 Age/S: 58 / M [id number] Unit #: [id number] Loc: [place] [address] Phys: Kevin Rollins MD Acct: [id number] Dis Date: Status: REG [facility] [place] PHONE #: [phone] Exam Date: 01/14/2019 0955 FAX #: Reason: port placement EXAMS: CPT: [id number] XR CHEST 1 V 18113 Fluoro Time: DAP (Gy m2): Air Kerma [...] PAGE 1 Signed Report Name: TAIWO BEARD [place] : 1960 Age/S: 58 / M [address] Unit #: [id number] Loc: [place] [address] Phys: Kevin Rollins MD Acct: [id number] Dis Date: Status: REG [facility] [place] PHONE #: [phone] ExamDate: 01/14/2019 0955 FAX #: Reason: port placement EXAMS: CPT: [id number] XR CHEST 1 V 99054 Fluoro Time: DAP (Gy m2): Air Kerma (mGy): < Continued> Technologist: Taiwo Izquierdo, RT(R)(CT); Verenice Carbajal RT(R) [facility] Date/Time: 01/14/2019 (1004) [email or web address] Orig Print D/T: S: 01/14/2019 (1007) PAGE 2 Signed ReportGLUCOSE BEDSIDE [id number] 07: 20:00 Test Item Value Reference Range Comments GLUCOSE BEDSIDE TESTING (test code=GLUBED) 137 mg/dL 70-110 GLUCOSE BEDSIDE [id number] 17:20:00 Test Item Value Reference Range Comments GLUCOSE BEDSIDE TESTING (test code=GLUBED) 103 mg/dL 70-110 GLUCOSE BEDSIDE [id number] 11:28:00 Test Item Value Reference Range Comments GLUCOSE BEDSIDE TESTING (test code=GLUBED) 87 mg/dL 70-110 GLUCOSE BEDSIDE [id number] 07:23:00 Test Item Value Reference Range Comments GLUCOSE BEDSIDE TESTING (test code=GLUBED) 108 mg/dL 70-110 GLUCOSE BEDSIDE [id number] 20:29:00 Test Item Value Reference Range Comments GLUCOSE BEDSIDE TESTING (test code=GLUBED) 99 mg/dL 70-110 GLUCOSE BEDSIDE [id number] 16:28:00 Test Item Value Reference Range Comments GLUCOSE BEDSIDE TESTING (test code=GLUBED) 84 mg/dL 70-110 GLUCOSE BEDSIDE [id number] 11:30:00 Test Item Value Reference Range Comments GLUCOSE BEDSIDE TESTING (test code=GLUBED) 106 mg/dL 70-110 GLUCOSE BEDSIDE [id number] 07:38:00 Test Item Value Reference Range Comments GLUCOSE BEDSIDE TESTING (test code=GLUBED) 120 mg/dL 70-110 CBC W/AUTO [id number] 06:24:00 Test Item Value Reference Range Comments [...] (test code=MDIFF) NO DIFF/SCN CRITERIA GLUCOSE BEDSIDE [id number] 21:45:00 Test Item Value Reference Range Comments GLUCOSE BEDSIDE TESTING (test code=GLUBED) 135 mg/dL 70-110 BASIC METABOLIC [id number] 18:20:00 Test Item Value Reference Range Comments [...] 0.8-1.3 CALCIUM (test code=CA) 8.1 MG/DL 8.5-10.1 [id number] 18:20:00 Test Item Value Reference Range Comments PHOSPHOROUS (test code=PHOS) 3.2 MG/DL 2.5-4.9 [id number] 18:20:00 Test Item Value Reference Range Comments MAGNESIUM (test code=MAG) 1.7 MG/DL 1.8-2.4 GLUCOSE BEDSIDE [id number] 16:54:00 Test Item Value Reference Range Comments GLUCOSE BEDSIDE TESTING (test code=GLUBED) 160 mg/dL 70-110 GLUCOSE BEDSIDE [id number] 14:29:00 Test Item Value Reference Range Comments GLUCOSE BEDSIDE TESTING (test code=GLUBED) 136 mg/dL 70-110 GLUCOSE BEDSIDE [id number] 07:31:00 Test Item Value Reference Range Comments GLUCOSE BEDSIDE TESTING (test code=GLUBED) 125 mg/dL 70-110
--- NOTE | 2019-03-28 15:45 | ER ---
Nurse's Notes [facility] Name: Taiwo Oquendo Age: 58 yrs Sex: Male : 1960 Arrival Date: 03/28/2019 Time: 14:22 Bed 8 Private MD: Diagnosis: Urinary tract infection, site not specified Presentation: 03/28 15:07 Presenting complaint: states: He started having blood in his urine yesterday." ph Also reports burning w/ urination, dizziness and nausea, denies abdominal pain V/D, currently receiving chemo for colon cancer stage 3. Transition of care: patient was not received from another setting of care. Onset of symptoms was March 28, 2019. Risk Assessment: Do you want to hurt yourself or someone else? Patient reports no desire to harm self or others. Initial Sepsis Screen: Does the patient meet any 2 criteria? No. Patient's initial sepsis screen is negative. Does the patient have a suspected source of infection? Yes: Dysuria/Frequency/Urgency/UTI. Care prior to arrival: None. 15:07 Method Of Arrival: Wheelchair 15:07 Acuity: LEONARD 3 ph Historical: - Allergies: 15:10 NKDA; ph - PMHx: 15:10 Anxiety; colon cancer; Diabetes - NIDDM; Headaches; Hyperlipidemia; Hypertension; TIA; ph - Immunization history:: Adult Immunizations up to date. - Social history:: Smoking status: Patient/guardian denies using tobacco. - Ebola Screening: : No symptoms or risks identified at this time. Screenin:35 Abuse screen: Denies threats or abuse. Denies injuries from another. Nutritional hb screening: No deficits noted. Tuberculosis screening: No symptoms or risk factors identified. Fall Risk None identified. Assessment: 15:32 General: Appears in no apparent distress. Behavior is calm, cooperative. Pain: Denies hb pain. Neuro: Level of Consciousness is awake, alert, obeys commands, Oriented to person, place, time, situation. Cardiovascular: Capillary refill < 3 seconds Patient's skin is warm and dry. Respiratory: Airway is patent Respiratory effort is even, unlabored, Respiratory pattern is regular, symmetrical. GI: No signs and/or symptoms were reported involving the gastrointestinal system. : Reports urgency, urinary frequency, blood in urine. EENT: No signs and/or symptoms were reported regarding the EENT system. Derm: Skin is intact, is healthy with good turgor. Musculoskeletal: No signs and/or symptoms reported regarding the musculoskeletal system. 16:17 Reassessment: Patient appears in no apparent distress at this time. No changes from sv previously documented assessment. Patient and/or family updated on plan of care and expected duration. Pain level reassessed. Patient is alert, oriented x 3, equal unlabored respirations, skin warm/dry/pink. Vital Signs: 15:09 BP 119 / 79; Pulse 74; Resp 18; Temp 98.9(O); Pulse Ox 99% on R/A; Weight 110.68 kg; ph Pain 0/10; ED Course: 14:22 Patient arrived in ED. tw3 15:09 Triage completed. ph 15:10 Arm band placed on. ph 15:13 Sommer Zelaya, RN is Primary Nurse. hb 15:13 Mary Sparks FNP-C is [facility]. kb 15:13 You Daigle MD is Attending Physician. kb 15:59 Patient has correct armband on for positive identification. Bed in low position. Call light in reach. Side rails up X 1. 16:06 Urine Microscopic Only Sent. sv 16:06 Urine Microscopic Only Sent. sv 16:18 No provider procedures requiring assistance completed. Patient did not have IV access sv during this emergency room visit. 16:18 Urine Culture Sent. sv Administered Medications: 15:55 Drug: Rocephin (cefTRIAXone) 1 grams Route: IM; Site: right deltoid; hb 16:18 Follow up: Response: No adverse reaction sv Outcome: 15:44 Discharge ordered by . kb 16:18 Discharged to home via wheelchair, with family. sv 16:18 Condition: stable 16:18 Discharge instructions given to patient, family, Instructed on discharge instructions, follow up and referral plans. medication usage, Demonstrated understanding of instructions, follow-up care, medications, Prescriptions given X 1. 16:18 Patient left the ED. sv Addendum: 04/01/2019 08:00 Addendum: Culture Results: Positive urine culture. Bacteria is resistant to, has s s intermediate sensitivity, or is not tested against prescribed antibiotics. Report given to NANDINI for further evaluation and then to wildlife biology technician for follow up with patient. Phone call Attempt #1 no answer. Signatures: Mary Sparks FNP-C FNP-Gretchen Weiner, RN RN Nellie Laughlin, RN RN Ellie Trent, RN RN Sommer Agrawal, RN RN enrique Chen, [place] 3
--- NOTE | 2019-03-28 15:45 | EDPHYS ---
Physician Documentation [facility] Name: Taiwo Oquendo Age: 58 yrs Sex: Male : 1960 Arrival Date: 03/28/2019 Time: 14:22 Bed 8 Private MD: ED Physician You Daigle HPI: 03/28 15:39 This 58 yrs old Male presents to ER via Wheelchair with complaints of Blood in kb Urine. 15:39 The patient presents with urinary symptoms, dysuria, urinary frequency, hematuria. kb Onset: The symptoms/episode began/occurred 3 day(s) ago. Modifying factors: The symptoms are alleviated by nothing, the symptoms are aggravated by urinating. Associated signs and symptoms: Pertinent positives: dysuria, hematuria, Pertinent negatives: abdominal pain, constipation, diarrhea, fever, nausea, vomiting. Severity of symptoms: At their worst the symptoms were moderate, in the emergency department the symptoms are unchanged. The patient has experienced similar episodes in the past, a few times. The patient has not recently seen a physician. Pt reports hematuria , dysuria and frequency since Friday. Was going to wait to see PCP tomorrow, but the symptoms got worse last night so he came in to get checked for UTI. Historical: - Allergies: 15:10 NKDA; ph - PMHx: 15:10 Anxiety; colon cancer; Diabetes - NIDDM; Headaches; Hyperlipidemia; Hypertension; TIA; ph - Immunization history:: Adult Immunizations up to date. - Social history:: Smoking status: Patient/guardian denies using tobacco. - Ebola Screening: : No symptoms or risks identified at this time. ROS: 15:39 Constitutional: Negative for fever, chills, and weight loss, Cardiovascular: Negative kb for chest pain, palpitations, and edema, Respiratory: Negative for shortness of breath, cough, wheezing, and pleuritic chest pain, Abdomen/GI: Negative for abdominal pain, nausea, vomiting, diarrhea, and constipation, Back: Negative for injury and pain, MS/Extremity: Negative for injury and deformity, Skin: Negative for injury, rash, and discoloration, Neuro: Negative for headache, weakness, numbness, tingling, and seizure. 15:39 : Positive for urinary symptoms, urinary frequency, hematuria, burning with urination. Exam: 15:39 Constitutional: This is a well developed, well nourished patient who is awake, alert, kb and in no acute distress. Head/Face: Normocephalic, atraumatic. Chest/axilla: Normal chest wall appearance and motion. Nontender with no deformity. No lesions are appreciated. Cardiovascular: Regular rate and rhythm with a normal S1 and S2. No gallops, murmurs, or rubs. Normal PMI, no JVD. No pulse deficits. Respiratory: Lungs have equal breath sounds bilaterally, clear to auscultation and percussion. No rales, rhonchi or wheezes noted. No increased work of breathing, no retractions or nasal flaring. Abdomen/GI: Soft, non-tender, with normal bowel sounds. No distension or tympany. No guarding or rebound. No evidence of tenderness throughout. Back: No spinal tenderness. No costovertebral tenderness. Full range of motion. Skin: Warm, dry with normal turgor. Normal color with no rashes, no lesions, and no evidence of cellulitis. MS/ Extremity: Pulses equal, no cyanosis. Neurovascular intact. Full, normal range of motion. Neuro: Awake and alert, GCS 15, oriented to person, place, time, and situation. Cranial nerves II-XII grossly intact. Motor strength 5/5 in all extremities. Sensory grossly intact. Cerebellar exam normal. Normal gait. Vital Signs: 15:09 BP 119 / 79; Pulse 74; Resp 18; Temp 98.9(O); Pulse Ox 99% on R/A; Weight 110.68 kg; ph Pain 0/10; MDM: 15:13 Patient medically screened. kb 15:41 Data reviewed: vital signs, nurses notes. Data interpreted: Pulse oximetry: on room air kb is 99 %. Interpretation: normal. Counseling: I had a detailed discussion with the patient and/or guardian regarding: the historical points, exam findings, and any diagnostic results supporting the discharge/admit diagnosis, lab results, the need for outpatient follow up, a family practitioner, to return to the emergency department if symptoms worsen or persist or if there are any questions or concerns that arise at home. ED course: Pt denies fever, abd pain and flank pain. No abd or CVA tenderness upon exam. Pt currently receiving chemo treatments every 2 weeks for colon cancer. Will follow up on Friday. Pt to return to ED for worsening symptoms, fever, inability to tolerate medications or any other concerns. Pt offered pain medication for dysuria. Pt reports he just wants antibiotics, does not want pain medication. 03/28 15:41 Order name: Urine Dipstick-Ancillary EDSD 03/28 15:42 Order name: Urine Microscopic Only [facility] 03/28 16:14 Order name: Urine Culture [facility] 03/28 15:08 Order name: Urine Dipstick-Ancillary (obtain specimen); Complete Time: 15:56 kb Administered Medications: 15:55 Drug: Rocephin (cefTRIAXone) 1 grams Route: IM; Site: right deltoid; hb 16:18 Follow up: Response: No adverse reaction sv Disposition: 03/28/19 15:44 Discharged to Home. Impression: Urinary tract infection, site not specified. - Condition is Stable. - Discharge Instructions: Urinary Tract Infection, Adult, [id number]. - Prescriptions for cefpodoxime 100 mg Oral Tablet - take 1 tablet by ORAL route every 12 hours for 10 days take with food; 20 tablet. - Medication Reconciliation Form, Thank You Letter, Antibiotic Education, Prescription Opioid Use, Family Work Release form. - Follow up: Emergency Department; When: As needed; Reason: Worsening of condition. Follow up: Private Physician; When: 2 - 3 days; Reason: Recheck today's complaints, Continuance of care, Re-evaluation by your physician. Addendum: 04/01/2019 20:48 Co-signature as Attending Physician, You Daigle MD. g s Signatures: Dispatcher [employer] [facility] Mary [place], SHIPPING AND RECEIVING WEIGHER-C SHIPPING AND RECEIVING WEIGHER-Gretchen Weiner RN RN sv Hall, Patricia, RN RN Sommer Zelaya RN RN You Daigle MD MD Corrections: (The following items were deleted from the chart) 03/28 16:18 15:44 03/28/2019 15:44 Discharged to Home. Impression: Urinary tract infection, site sv not specified. Condition is Stable. Forms are Medication Reconciliation Form, Thank You Letter, Antibiotic Education, Prescription Opioid Use. Follow up: Emergency Department; When: As needed; Reason: Worsening of condition. Follow up: Private Physician; When: 2 - 3 days; Reason: Recheck today's complaints, Continuance of care, Re-evaluation by your physician. kb
[2019-03-28] MEDS ORDERED: CEFTRIAXONE 1000 MG/VIAL ONE (16:03)
[2019-03-28] MEDS ORDERED: LIDOCAINE 1% MPF 2 ML AMPULE ONE (16:03)
[2019-03-28 16:12] LABS: Urine Bacteria LOADED /HPF (NONE SEEN); Urine Culture Reflex Order REFLEXED
[2019-03-28 17:13] LABS: Urine Blood 2+ (NEG); Urine Glucose NEGATIVE (NEG); Urine Protein 2+ (NEG); Urine Specific Gravity 1.025 (1.005-1.030)
== END 2019-03-28 16:18 | disposition home or self-care (01) ==
LOC: ER 14:19
DX: N39.0 Urinary tract infection, site not specified (principal); I10 Essential (primary) hypertension; Z85.038 Personal history of other malignant neoplasm of large intestine
CPT/HCPCS: 81003; 81015; 87077; 87086; 87088; 87186; 96372; 99283; J2001

== ENCOUNTER 2019-05-05 01:19 | Inpatient (IN) | payer OTHER ==
--- OUTSIDE RECORDS SUMMARY | 2019-05-05 01:21 | XMS REPORT ---
:1960 Author Organization [facility] Address [address] [place] [address] Care Team Providers Name Role Phone Unavailable [...] XR FLUOROSCOPY 0-60 MIN 2019-01-14 10:27:00 Name: RACHAEL BERAD : 1960 Age/S: 58 / M [id number] Unit #: [id number] Loc: [place] [address] Phys: Kevin Rollins MD Acct: [id number] Dis Date: Status: REG [facility] PHONE #: [phone] Exam Date: 01/14/2019 0910 FAX #: Reason: PORT A CATH PLACEMENT EXAMS: CPT: [id number] XR FLUOROSCOPY 0-60 MIN 92434 Fluoro Time: 8 SEC DAP (Gy m2): [...] Rollins MD PAGE 1 Signed Report Name: RACHAEL BEARD : 1960 Age/S: 58 / M [id number] Unit #: [id number] Loc: [place] [address] Phys: Kevin Rollins MD Acct: [id number] Dis Date: Status: REG [facility] PHONE #: [phone] Exam Date: 01/14/2019 0910 FAX #: Reason: PORT A CATH PLACEMENT EXAMS: CPT: [id number] XR FLUOROSCOPY 0-60 MIN 06101 Fluoro Time: 8 SEC DAP (Gy m2): Air Kerma (mGy): <Continued> Technologist: Sandy Lucero, RT(R)(CT); Mary Carbajal RT(R) [facility] Date/Time: 01/14/2019 (1027) [id number] Orig Print D/T: S: 01/14/2019 (1030) PAGE 2 Signed Report GLUCOSE BEDSIDE TESTING 2019-01-14 10:17:00 Test Item Value Reference Range Comments GLUCOSE BEDSIDE TESTING (test code=GLUBED) 140 mg/dL 70-110 - XR CHEST 1 [id number] 10:04:00 Name: RACHAEL EBARD [place] : 1960 Age/S: 58 / M [address] Unit #: [id number] Loc: [place] [address] Phys: Kevin Rollins MD Acct: [id number] Dis Date: Status: REG [facility] PHONE #: [phone] Exam Date: 01/14/2019 0955 FAX #: Reason: port placement EXAMS: CPT: [id number] XR CHEST 1 V 81971 Fluoro Time: DAP (Gy m2): Air Kerma [...] Rollins MD PAGE 1 Signed Report Name: RACHAEL BEARD [place] : 1960 Age/S: 58 / M [id number] Unit #: [id number] Loc: [place] [address] Phys: Kevin Rollins MD Acct: [id number] Dis Date: Status: [facility] PHONE #: [phone] ExamDate: 01/14/2019 0987 FAX #: Reason: port placement EXAMS: CPT: [id number] XR CHEST 1 V 66549 Fluoro Time: DAP (Gy m2): Air Kerma (mGy): < Continued> Technologist: Rachael Izquierdo, RT(R)(CT); Verenice Carbajal RT(R) [facility] Date/Time: 01/14/2019 (1004) [email or web address] Orig Print D/T: S: 01/14/2019 (1007) PAGE 2 Signed ReportGLUCOSE BEDSIDE [id number] 07: 20:00 Test Item Value Reference Range Comments GLUCOSE BEDSIDE TESTING (test code=GLUBED) 137 mg/dL 70-110 [id number] 16:52:00 RUN DATE: 01/06/19 [facility] - LAB *LIVE* PAGE 1 RUN TIME: 165 Specimen Inquiry RUN USER: INTERFACE PATIENT: RACHAEL BEARD LOC: [place] U #: [id number] AGE/SX: 58/M ROOM: [facility] RE12/31/18[facility] DR: Kevin Rollins MD : [birth year] BED: 1 DIS: 01/02/19 STATUS: DIS IN TLOC: SPEC #: [id number] RECD: 01/01/19 STATUS: MARCIA REQ #: [id number] ONELIA: 12/31/[address] [facility] [address]: Kevin Rollins MD ENTERED: 01/01/19 SP TYPE: SURG OTHR DR: Shamar Abreu ORDERED: SURG PATH LVL 6 COPIES TO: Shamar Abreu [address] [place] [address] [place] [id number] [facility] [address], [place] [address] HISTOLOGY: TISSUE ID BLK PCS CESAR [place] PROCEDURE DISPOSITION ____ ___ ___ ___ __ SIGMOID COLON A 1-15 1 PROCEDURES: SURG PATH LVL 6 (01/01/19-915) TISSUES: A. SIGMOID COLON - SIGMOID COLON AND ANASTOMATIC COLON RINGS CLINICAL HISTORY COLON RECTAL CANCER -C18.9 CPT CODES CPT CODE(S): 21024 , , , , , , FINAL DIAGNOSIS Colon, sigmoid, anastomotic donuts, partial colectomy: MODERATELY DIFFERENTIATED COLORECTAL ADENOCARCINOMA, 6 CM GREATEST DIMENSION 7 LYMPH NODES POSITIVE FOR METASTATIC CARCINOMA (7/10) MARGINS NEGATIVE CONTINUED ON NEXT PAGE RUN DATE: 01/06/19 [facility] - LAB *LIVE* PAGE 2 RUN TIME: 1652 Specimen Inquiry RUN USER: INTERFACE SPEC #: [id number] PATIENT: RACHAEL BEARD #[id number] (Continued) GROSS DESCRIPTION Sigmoid colon and anastomotic colon rings. Received in formalin is a 15.5 cm in length segment of sigmoid colon which is 4.0 cm in circumference at the proximal margin and 2.0 cm in circumference in the distal margin. A 17.0 x 7.0 x 4.5 cm mesentery is present along the entire border of the segment of sigmoid colon. There is a iverson-pink lesion, measures 6.0 x 5.5 x 1.5 cm with serpiginous borders. The lesion is 0.1 cm from deep margin/serosal layer, 1.7 cm from the proximal margin and 6.0 cm from the distal margin. In the proximal1/3 of the tumor occupies whole circumference of the colon and in the distal 2/3 the tumor spares 0.9 cm of the colonic circumference and the lumen is narrowed to approximately 0.3 cm in diameter. The proximal colon is dilated. The remainder of the mucosa is unremarkable. There are extensive adhesions in the peritoneal layer with mesentery. The mesentery is thoroughly examined and multiple/more than ten lymph nodes are present in the peritoneal tissue, some are matted, the largest measures 0.8 cm. Additionally received are two anastomotic colonic rings, one measures 1.8 cm in length x 2.0 cm in diameter and the second measures 1.3 cm in length and 2.3 cm in diameter. Section code: A1-A2 Entire circumference margin of proximal end A3 Entire circumference of distal margin A4-A5 Search Lead sections of the lesion A6 Tumor with normal mucosa of proximal margin A7 Tumor with normal mucosa of closest distal margin A8 Normal mucosa A9 Search Lead sections of largest anastomotic ring A10 Search Lead sections of second anastomotic ring A11 Search Lead sections of mesentery A12-A14 Search Lead sections of mesentery with possible matted lymph nodes A15-A20 Entire lymph nodes, one lymph node each A21 Two lymph nodes A22 Two lymph nodes, serially [id number] Three lymph nodes Grossing performed at [facility], [address], [address], [place], [place] [address]. Thread Grinder: Hany Haji M.D. MICROSCOPIC DESCRIPTION Sigmoid colon and anastomotic colon rings. Sections demonstrate colonic mucosa. A mass with infiltrating neoplastic glands identified. The glands penetrate through the muscularis to involve the serosa. Lymphovascular invasion is identified. Sections of mesentery demonstrate tumor involving soft tissue. Lymph nodes are identified. Metastatic carcinoma is present in 7 lymph nodes.A total of 10 lymph nodes are identified.The carcinoma CONTINUED ON NEXT PAGE RUN DATE: 01/06/19 [facility] - LAB *LIVE* PAGE 3 RUNTIME: 467 Specimen Inquiry RUN USER: INTERFACE SPEC #: [facility]:[id number] PATIENT: RAHCAEL BEARD #[id number] (Continued) MICROSCOPIC DESCRIPTION (Continued) demonstrates moderately differentiated colonic adenocarcinoma with prominent gland formation. Portions of the carcinoma demonstrate poorly formed glands and cell clusters. Carcinoma present in lymph nodes demonstrate a mixture of gland formation with irregular cell clusters. Focal mucinous pools are also identified in the lymph nodes. The margins are negative. The anastomotic donuts are also negative for carcinoma. STAGING: Anatomic site of cancer: Sigmoid Histologic type: Adenocarcinoma Grade (G): G2 Moderately differentiated Tumor size (cm): 6 x 5.5 x 1.5 CM Primary Tumor (T): pT3 Lymph Node (N) : pN2b Distant Metastasis (M): Stage Grouping : IIIC Surgical Margins: Negative SYNOPTIC REPORT Procedure: Sigmoidectomy Tumor site: Sigmoid colon Tumor size: 6 x 5.5 x 1.5 cm Histologic type: Adenocarcinoma Histologic grade: G2 : Moderately differentiated Tumor extension: Tumor invades through muscularis propriaMargins: All margins uninvolved Proximal margin: Uninvolved, 1.7 cm Distal margin: Uninvolved colon 6 cm Radial mesenteric margin: Not applicable Treatment effect: No known presurgical therapy Lymphovascular invasion: Present Perineural invasion: Not identified Tumor deposits: Present, 1 Regional lymph nodes: Number of lymph nodes involved: 7 Number of lymph nodes examined: 10 Pathologic stage: Primary tumor: pT3 Regional lymph nodes: pN2b Signed SIGNATURE ON FILE Bull Bueno Sarahi 01/06/19 1652 END OF REPORT GLUCOSE BEDSIDE [id number] 17:20:00 Test Item Value Reference Range Comments GLUCOSE BEDSIDE TESTING (test code=GLUBED) 103 mg/dL 70-110 GLUCOSE BEDSIDE [id number] 11:28:00 Test Item Value Reference Range Comments GLUCOSE BEDSIDE TESTING (test code=GLUBED) 87 mg/dL 70-110 GLUCOSE BEDSIDE [id number] 07:23:00 Test Item Value Reference Range Comments GLUCOSE BEDSIDE TESTING (test code=GLUBED) 108 mg/dL 70-110 GLUCOSE BEDSIDE [id number] 20:29:00 Test Item Value Reference Range Comments GLUCOSE BEDSIDE TESTING (test code=GLUBED) 99 mg/dL 70-110 GLUCOSE BEDSIDE [id number] 16:28:00 Test Item Value Reference Range Comments GLUCOSE BEDSIDE TESTING (test code=GLUBED) 84 mg/dL 70-110 GLUCOSE BEDSIDE [id number] 11:30:00 Test Item Value Reference Range Comments GLUCOSE BEDSIDE TESTING (test code=GLUBED) 106 mg/dL 70-110 GLUCOSE BEDSIDE [id number] 07:38:00 Test Item Value Reference Range Comments GLUCOSE BEDSIDE TESTING (test code=GLUBED) 120 mg/dL 70-110 CBC W/AUTO [id number] 06:24:00 Test Item Value Reference Range Comments [...] (test code=MDIFF) NO DIFF/SCN CRITERIA GLUCOSE BEDSIDE [id number] 21:45:00 Test Item Value Reference Range Comments GLUCOSE BEDSIDE TESTING (test code=GLUBED) 135 mg/dL 70-110 BASIC METABOLIC [id number] 18:20:00 Test Item Value Reference Range Comments [...] 0.8-1.3 CALCIUM (test code=CA) 8.1 MG/DL 8.5-10.1 [id number] 18:20:00 Test Item Value Reference Range Comments PHOSPHOROUS (test code=PHOS) 3.2 MG/DL 2.5-4.9 [id number] 18:20:00 Test Item Value Reference Range Comments MAGNESIUM (test code=MAG) 1.7 MG/DL 1.8-2.4 GLUCOSE BEDSIDE [id number] 16:54:00 Test Item Value Reference Range Comments GLUCOSE BEDSIDE TESTING (test code=GLUBED) 160 mg/dL 70-110 GLUCOSE BEDSIDE [id number] 14:29:00 Test Item Value Reference Range Comments GLUCOSE BEDSIDE TESTING (test code=GLUBED) 136 mg/dL 70-110 GLUCOSE BEDSIDE [id number] 07:31:00 Test Item Value Reference Range Comments GLUCOSE BEDSIDE TESTING (test code=GLUBED) 125 mg/dL 70-110
[2019-05-05] MEDS ORDERED: NA CHLORIDE 0.9% 1,000 ML ONE (01:57)
[2019-05-05] MEDS ORDERED: NA CHLORIDE 0.9% 500 ML ONE ×2 (01:57→03:21)
[2019-05-05 02:15] LABS: Protime INR 1.06
[2019-05-05 02:19] LABS: Hematocrit 37.1 % (39.6-49.0)
[2019-05-05 02:22] LABS: Absolute Lymphocytes (CBC) 1.4 K/uL (0.7-4.9); Basophils % 0.9 % (0-1.3); Eosinophils % 1.5 % (0-4.4); Lymphocytes % 24.8 % (15.3-44.8); Monocytes % 4.2 % (3.3-12.3); RBC Red Blood Cell Count 4.51 M/uL (4.33-5.43)
[2019-05-05 02:29] LABS: ALT/SGPT 70 U/L (12-78); AST/SGOT 71 U/L (15-37); Albumin 3.6 g/dL (3.4-5.0); Alkaline Phosphatase 182 U/L (45-117); BUN Blood Urea Nitrogen 12 mg/dL (7-18); Bicarbonate 22 mmol/L (21-32); Bilirubin Direct < 0.1 mg/dL (0-0.2); Bilirubin Total 0.4 mg/dL (0.2-1.0); CKMB Creatine Kinase MB < 1.0 ng/mL (0.3-3.6); Creatine Phosphokinase 63 U/L (39-308); Glucose Level 145 mg/dL (74-106); Lipase 86 U/L (73-393); Protein, Total 7.8 g/dL (6.4-8.2); Sodium Level 139 mmol/L (136-145)
[2019-05-05] MEDS ORDERED: LIDOCAINE VISCOUS 2% SOLN 15 ML UDC ONE (03:21)
--- NOTE | 2019-05-05 03:27 | EDPHYS ---
Physician Documentation [facility] Name: Taiwo Chery Age: 58 yrs Sex: Male : 1960 Arrival Date: 05/05/2019 Time: 01:23 Bed 5 Private MD: Catarino Brandt E ED Physician Marek Veras HPI: 05/05 01:42 This 58 yrs old Male presents to ER via Unassigned with complaints of panic snw attack, High Blood Pressure. 01:42 Onset: The symptoms/episode began/occurred suddenly, just prior to arrival. Associated snw signs and symptoms: Pertinent positives: sudden onset of shortness of breath, anxiety, generalized fatigue. Modifying factors: The patient symptoms are alleviated by nothing. The patient has experienced similar episodes in the past, multiple times. gets Chemo for stage 3 colon cancer every other Friday. Due for Chemo next week. Awoke with "panic attack", family states she didn't know he had fever until he got here. Recent UTI x 3 episodes.. Historical: - Allergies: 01:44 NKDA; bb - Home Meds: 01:44 Enalapril Oral [Active]; Metformin Oral [Active]; aspirin 81 mg Oral chew 1 tab once bb daily [Active]; Depakote Oral [Active]; pantoprazole oral oral [Active]; - PMHx: 01:44 Anxiety; colon cancer; Diabetes - NIDDM; Headaches; Hyperlipidemia; Hypertension; TIA; bb - PSHx: 01:44 colon surgery; bb - Immunization history:: Adult Immunizations up to date. - Social history:: Smoking status: Patient/guardian denies using tobacco. - Ebola Screening: : No symptoms or risks identified at this time. ROS: 01:44 Eyes: Negative for injury, pain, redness, and discharge, ENT: Negative for injury, snw pain, and discharge, Neck: Negative for injury, pain, and swelling, Cardiovascular: Negative for chest pain, palpitations, and edema. 01:44 Abdomen/GI: Negative for abdominal pain, nausea, vomiting, diarrhea, and constipation, Back: Negative for injury and pain, : Negative for injury, bleeding, discharge, and swelling, MS/Extremity: Negative for injury and deformity, Skin: Negative for injury, rash, and discoloration, Neuro: Negative for headache, weakness, numbness, tingling, and seizure. 01:44 Constitutional: Positive for fever, anxiety. 01:44 Respiratory: Positive for shortness of breath. Exam: 01:40 Head/Face: Normocephalic, atraumatic. Eyes: Pupils equal round and reactive to light, snw extra-ocular motions intact. Lids and lashes normal. Conjunctiva and sclera are non-icteric and not injected. Cornea within normal limits. Periorbital areas with no swelling, redness, or edema. ENT: Nares patent. No nasal discharge, no septal abnormalities noted. Tympanic membranes are normal and external auditory canals are clear. Oropharynx with no redness, swelling, or masses, exudates, or evidence of obstruction, uvula midline. Mucous membranes moist. Neck: Trachea midline, no thyromegaly or masses palpated, and no cervical lymphadenopathy. Supple, full range of motion without nuchal rigidity, or vertebral point tenderness. No Meningismus. Chest/axilla: Normal chest wall appearance and motion. Nontender with no deformity. No lesions are appreciated. 01:40 Respiratory: Lungs have equal breath sounds bilaterally, clear to auscultation and percussion. No rales, rhonchi or wheezes noted. No increased work of breathing, no retractions or nasal flaring. 01:40 Back: No spinal tenderness. No costovertebral tenderness. Full range of motion. 01:40 Constitutional: The patient appears awake, obese, pale, uncomfortable. 01:40 Cardiovascular: Rate: tachycardic, Rhythm: regular. 01:40 Abdomen/GI: Inspection: distension, Bowel sounds: normal, Palpation: abdomen is soft and non-tender. 01:40 Skin: Appearance: Color: dusky, Temperature: hot, Moisture: dry. 01:40 Neuro: Exam negative for Vital Signs: 01:44 BP 115 / 96; Pulse 116; Resp 24 S; Temp 102.8(O); Pulse Ox 97% on R/A; Weight 106.59 kg bb (R); Height 5 ft. 2 in. (157.48 cm) (R); Pain 10/10; 02:22 BP 124 / 72; Pulse 102; Resp 20; Pulse Ox 97% on R/A; jb4 03:00 BP 120 / 67; Pulse 110; Resp 23; Pulse Ox 97% on R/A; lp1 03:30 BP 125 / 62; Pulse 107; Resp 18; Temp 100.8(O); Pulse Ox 98% on R/A; lp1 04:29 BP 109 / 59; Pulse 101; Resp 20; Temp 100.2(O); Pulse Ox 97% on R/A; lp1 05:00 BP 117 / 77; Pulse 100; Resp 20; Pulse Ox 97% on R/A; lp1 01:44 Body Mass Index 42.98 (106.59 kg, 157.48 cm) bb MDM: 01:27 Patient medically screened. 05/05 01:37 Order name: T\\T\\S w 05/05 01:37 Order name: Basic Metabolic Panel 05/05 01:37 Order name: Blood Culture Adult (2) 05/05 01:37 Order name: CBC with Diff 05/05 01:37 Order name: Ckmb; Complete Time: 02:32 w 05/05 01:37 Order name: CPK; Complete Time: 02:32 05/05 01:37 Order name: Lactate; Complete Time: 02:28 05/05 01:37 Order name: LFT's; Complete Time: 02:32 05/05 01:37 Order name: Lipase; Complete Time: 02:32 05/05 01:37 Order name: Procalcitonin; Complete Time: 02:44 05/05 01:37 Order name: Protime (+inr); Complete Time: 02:18 w 05/05 01:37 Order name: Ptt, Activated; Complete Time: 02:18 05/05 01:37 Order name: Troponin (emerg Dept Use Only); Complete Time: 02:28 05/05 01:37 Order name: Urine Microscopic Only; Complete Time: 04:30 w 05/05 01:37 Order name: Chest Single View XRAY; Complete Time: 17:31 05/05 01:37 Order name: Accucheck; Complete Time: 02:37 snw 05/05 01:37 Order name: Flu; Complete Time: 02:44 05/05 01:58 Order name: Type and Screen; Complete Time: 03:26 EDMS 05/05 01:58 Order name: Basic Metabolic Panel; Complete Time: 02:32 EDMS 05/05 01:58 Order name: Blood Culture EDAZ 05/05 01:58 Order name: CBC with Automated Diff; Complete Time: 02:25 EDAZ 05/05 03:38 Order name: Urine Dipstick--Ancillary (enter results); Complete Time: 04:30 mw2 05/05 04:08 Order name: CONS Pharmacy Consult [facility] 05/05 04:08 Order name: NPO [facility] 05/05 04:08 Order name: Regular [facility] 05/05 04:09 Order name: Urine Culture [facility] 05/05 01:37 Order name: Cardiac monitoring; Complete Time: 02:24 snw 05/05 01:37 Order name: EKG - Nurse/Tech; Complete Time: 02:24 snw 05/05 01:37 Order name: IV Saline Lock - Large Bore; Complete Time: 03:49 snw 05/05 01:37 Order name: Labs collected and sent; Complete Time: 02:38 snw 05/05 01:37 Order name: O2 Per Protocol; Complete Time: 02:24 snw 05/05 01:37 Order name: O2 Sat Monitoring; Complete Time: 02:16 snw 05/05 01:37 Order name: Urine Dipstick-Ancillary (obtain specimen); Complete Time: 03:49 snw Administered Medications: 02:00 Drug: NS 0.9% 1000 ml Route: IV; Rate: 75 ml/hr; Site: right antecubital; jb4 05:00 Follow up: IV Status: Infusion continued upon admission lp1 02:00 Drug: NS 0.9% 500 ml Route: IV; Rate: bolus; Site: right antecubital; jb4 02:30 Follow up: Response: No adverse reaction; IV Status: Completed infusion; IV Intake: jb4 500ml 03:31 Drug: NS 0.9% 500 ml Route: IV; Rate: bolus; Site: right antecubital; bb 03:57 Follow up: IV Status: Completed infusion; IV Intake: 500ml bb 03:45 Drug: Rocephin 1 grams Route: IV; Rate: calculated rate; Site: right antecubital; bb 03:50 Follow up: IV Status: Completed infusion; IV Intake: 10ml bb Disposition: 06:50 Co-signature as Attending Physician, Marek Veras MD I agree with the assessment and [facility] plan of care. Disposition: 05/05/19 03:26 Hospitalization ordered by Wanda Aleman for Inpatient Admission. Preliminary diagnosis are Fever, unspecified, Volume depletion, Type 2 diabetes mellitus, Weakness, Urinary tract infection, site not specified. - Bed requested for Telemetry/MedSurg (Inpatient). - Status is Inpatient Admission. lp1 - Condition is Fair. - Problem is new. - Symptoms have improved. UTI on Admission? Yes Signatures: Dispatcher [employer] EDMS Li Aguilar, RN RN Marek Rangel MD MD cha Therrien, Shelly, [employer]BER-C [employer]-Csnw Taty Stephen, RN RN bb Julianna Maldonado RN RN lp1 Faustino Harley, RN RN jb4 Corrections: (The following items were deleted from the chart) 03: 01:37 Boss ordered. [facility] 03:31 01:58 Misc. Order ordered. [facility] 04:13 03:26 Hospitalization Ordered by Wanda Aleman MD for Inpatient Admission. Preliminary diagnosis is Fever, unspecified; Volume depletion; Type 2 diabetes mellitus; Weakness; Urinary tract infection, site not specified. Bed requested for Telemetry/MedSurg (Inpatient). Status is Inpatient Admission. Condition is Fair. Problem is new. Symptoms have improved. UTI on Admission? Yes. [facility] 05:27 04:13 05/05/2019 03:26 Hospitalization Ordered by Wanda Aleman MD for Inpatient lp1 Admission. Preliminary diagnosis is Fever, unspecified; Volume depletion; Type 2 diabetes mellitus; Weakness; Urinary tract infection, site not specified. Bed requested for Telemetry/MedSurg (Inpatient). Status is Inpatient Admission. Condition is Fair. Problem is new. Symptoms have improved. UTI on Admission? Yes. mw
--- NOTE | 2019-05-05 03:27 | ER ---
Nurse's Notes [facility] Name: Taiwo Chery Age: 58 yrs Sex: Male : 1960 Arrival Date: 05/05/2019 Time: 01:23 Bed 5 Private MD: Catarino Brandt E Diagnosis: Fever, unspecified;Volume depletion;Type 2 diabetes mellitus;Weakness;Urinary tract infection, site not specified Presentation: 05/05 01:30 Presenting complaint: states: pt is a cancer pt receiving chemo every 2 weeks for bb colon cancer she left and went to work [employer] and received call from pt having a panic attack, pt was having difficulty breathing, tremors, pt has severe headache greater than 10/10. She gave pt 2 tylenol approx 30 mins prior to arrival. Transition of care: patient was not received from another setting of care. Onset of symptoms was May 05, 2019. Risk Assessment: Do you want to hurt yourself or someone else? Patient reports no desire to harm self or others. Initial Sepsis Screen: Does the patient meet any 2 criteria? RR > 20 per min. Temp <36.0*C (96.8*F)) or > 38.3*C (100.9*F). HR > 90 bpm. Yes Does the patient have a suspected source of infection? Yes: Other: pt is a cancer pt If YES to both, name of provider notified: Andreia SALAZAR. Care prior to arrival: None. 01:30 Method Of Arrival: Ambulatory bb 01:30 Acuity: LEONARD 2 bb Historical: - Allergies: 01:44 NKDA; bb - Home Meds: 01:44 Enalapril Oral [Active]; Metformin Oral [Active]; aspirin 81 mg Oral chew 1 tab once bb daily [Active]; Depakote Oral [Active]; pantoprazole oral oral [Active]; - PMHx: 01:44 Anxiety; colon cancer; Diabetes - NIDDM; Headaches; Hyperlipidemia; Hypertension; TIA; bb - PSHx: 01:44 colon surgery; bb - Immunization history:: Adult Immunizations up to date. - Social history:: Smoking status: Patient/guardian denies using tobacco. - Ebola Screening: : No symptoms or risks identified at this time. Screenin:47 Abuse screen: Denies threats or abuse. Denies injuries from another. Nutritional lp1 screening: No deficits noted. Tuberculosis screening: No symptoms or risk factors identified. Fall Risk Total Brooks Fall Scale indicates High Risk Score (45 or more points). Fall prevention measures have been instituted. Side Rails Up X 2 Family Present and informed to notify staff if the need to leave the bedside As available patient and family educated on Fall Prevention Program and Strategies. Assessment: 01:50 General: Appears distressed, uncomfortable, Behavior is cooperative, anxious. Pain: jb4 Complains of pain in headache. Pain does not radiate. Pain currently is 9 out of 10 on a pain scale. Quality of pain is described as throbbing. Neuro: Level of Consciousness is awake, alert, obeys commands, Oriented to person, place, time, situation. Cardiovascular: Heart tones S1 S2 present Patient's skin is warm and dry. Respiratory: Airway is patent Respiratory effort is even, labored, Respiratory pattern is symmetrical, tachypnea. GI: Reports nausea. : No signs and/or symptoms were reported regarding the genitourinary system. EENT: No signs and/or symptoms were reported regarding the EENT system. Derm: Skin is intact, Skin is dry, Skin is normal, Skin temperature is warm. Musculoskeletal: Circulation, motion, and sensation intact. 02:30 Reassessment: No changes from previously documented assessment. Patient and/or family jb4 updated on plan of care and expected duration. Pain level reassessed. Patient is alert, oriented x 3, equal unlabored respirations, skin warm/dry/pink. 02:35 Reassessment: Pt refused [place]. Family states " he said he does not want it unless he jb4 can be knocked out or it can be numbed." Informed pt and family that we do not sedate for [place]on insertions. Permission given by provider to use Viscous Lidocaine. 03:00 Reassessment: PT refused easton. Attempted to re-explain reason for procedure, pt jb4 refused after request for lidocaine for insertion. Provider notified. 03:30 General: Appears in no apparent distress. Behavior is calm. Neuro: Level of lp1 Consciousness is awake, alert, obeys commands, Oriented to person, place, time, situation, Reports headache that has improved . Cardiovascular: Patient's skin is warm and dry. Respiratory: Respiratory effort is even, Respiratory pattern is regular, Breath sounds are clear bilaterally. GI: Abdomen is round. : Urine is cloudy. Derm: Skin is intact, Skin is dry, Skin is normal. 03:30 Reassessment: Patient's at bedside. lp1 04:38 Reassessment: Patient appears in no apparent distress at this time. Patient and lp1 aware of admission;. Vital Signs: 01:44 BP 115 / 96; Pulse 116; Resp 24 S; Temp 102.8(O); Pulse Ox 97% on R/A; Weight 106.59 kg bb (R); Height 5 ft. 2 in. (157.48 cm) (R); Pain 10/10; 02:22 BP 124 / 72; Pulse 102; Resp 20; Pulse Ox 97% on R/A; jb4 03:00 BP 120 / 67; Pulse 110; Resp 23; Pulse Ox 97% on R/A; lp1 03:30 BP 125 / 62; Pulse 107; Resp 18; Temp 100.8(O); Pulse Ox 98% on R/A; lp1 04:29 BP 109 / 59; Pulse 101; Resp 20; Temp 100.2(O); Pulse Ox 97% on R/A; lp1 05:00 BP 117 / 77; Pulse 100; Resp 20; Pulse Ox 97% on R/A; lp1 01:44 Body Mass Index 42.98 (106.59 kg, 157.48 cm) ED Course: 01:23 Patient arrived in ED. am2 01:24 Catarino Brandt MD is Private Physician. am2 01:27 Andreia Thompson FNP-C is [facility]. snw 01:27 Marek Veras MD is Attending Physician. snw 01:42 Triage completed. bb 01:44 Arm band placed on Patient placed in an exam room, on a stretcher, on pulse oximetry. bb Family accompanied patient. 01:50 Inserted saline lock: 22 gauge in right antecubital area, using aseptic technique. jb4 Blood collected. 01:50 Initial lab(s) drawn, by me, sent to lab. First set of blood cultures drawn. jb4 02:08 X-ray completed. Portable x-ray completed in exam room. Patient tolerated procedure kw well. 02:09 Chest Single View XRAY In Process Unspecified. EDMS 03:00 Patient has correct armband on for positive identification. Bed in low position. Call lp1 light in reach. dbas on. Pulse ox on. NIBP on. 03:07 Report received from Mike Harley RN. lp1 03:24 Wanda Aleman MD is Hospitalizing Provider. nancy 04:29 No provider procedures requiring assistance completed. Patient admitted, IV remains in lp1 place. Administered Medications: 02:00 Drug: NS 0.9% 1000 ml Route: IV; Rate: 75 ml/hr; Site: right antecubital; jb4 05:00 Follow up: IV Status: Infusion continued upon admission lp1 02:00 Drug: NS 0.9% 500 ml Route: IV; Rate: bolus; Site: right antecubital; jb4 02:30 Follow up: Response: No adverse reaction; IV Status: Completed infusion; IV Intake: jb4 500ml 03:31 Drug: NS 0.9% 500 ml Route: IV; Rate: bolus; Site: right antecubital; bb 03:57 Follow up: IV Status: Completed infusion; IV Intake: 500ml bb 03:45 Drug: Rocephin 1 grams Route: IV; Rate: calculated rate; Site: right antecubital; bb 03:50 Follow up: IV Status: Completed infusion; IV Intake: 10ml bb Intake: 02:30 IV: 500ml; Total: 500ml. jb4 03:50 IV: 10ml; Total: 510ml. bb 03:57 IV: 500ml; Total: 1010ml. bb Outcome: 03:26 Decision to Hospitalize by Provider. nancy 04:29 Condition: stable lp1 04:29 Instructed on the need for admit. 04:36 Admitted to Tele accompanied by nurse, via wheelchair, room 416, with chart, Report lp1 called to LELE Calle 05:10 Patient left the ED. lp1 Signatures: Dispatcher [employer] OLIVIACA Marek Veras MD MD cha Therrien, Shelly, ROOM SERVICE CLERK-C ROOM SERVICE CLERK-Taty Hernandez RN RN Isabella Garrison Laura, RN RN lp1 Faustino Harley RN RN jb4 Meaghan Borges am2 Corrections: (The following items were deleted from the chart) 03:45 01:50 Neuro: Level of Consciousness is awake, obeys commands, obtunded, Oriented to jb4 person, place, time, situation, jb4 05:28 05:27 Patient left the ED. lp1 lp1
[2019-05-05 03:42] LABS: Urine Blood NEGATIVE (NEG); Urine Glucose NEGATIVE (NEG); Urine Protein TRACE (NEG); Urine Specific Gravity 1.025 (1.005-1.030); Urine pH 5.5 (5.0-7.0)
[2019-05-05] MEDS ORDERED: CEFTRIAXONE/SWI 1gm 1 GM/10 ML SYR ONE (03:53)
[2019-05-05] MEDS ORDERED: ONDANSETRON 4 MG/2 ML VIAL IV PRN (03:59)
[2019-05-05] MEDS ORDERED: MORPHINE 2 MG/ML SYR IV PRN (03:59)
[2019-05-05] MEDS ORDERED: ACETAMINOPHEN 500 MG TAB PO PRN (03:59)
[2019-05-05] MEDS ORDERED: NA CHLORIDE 0.9% 1,000 ML IV SCH ×2 (04:00→10:00)
[2019-05-05 04:08] LABS: Urine Bacteria 20-50 /HPF (NONE SEEN); Urine Culture Reflex Order REFLEXED; Urine Mucus LIGHT /HPF (NONE SEEN); Urine RBC <5 /HPF (NONE SEEN)
[2019-05-05] MEDS ORDERED: LORAZEPAM 0.5 MG TABLET PO PRN (04:09)
[2019-05-05 06:43] VITALS: BMI 40.8
--- NOTE | 2019-05-05 07:07 | P.HP ---
Certification for Inpatient Patient admitted to: Observation With expected LOS: <2 Midnights Patient will require the following post-hospital care: None Practitioner: I am a practitioner with admitting privileges, knowledge of patient current condition, hospital course, and medical plan of care. Services: Services provided to patient in accordance with Admission requirements found in Title 42 Section 412.3 of the Code of Federal Regulations Patient History Date of Service: 05/05/19 Reason for admission: Fever; recurrent UTI; History of Present Illness: Patient is a 58yo who was admitted to the hospital with fever, shakes, and chills. Patient has a history of stage III colon cancer. Patient has also had recurrent urinary tract infection after each of his last 3 chemo sessions. Patient just completed a course of oral antibiotics at this time. Patient denies any diarrhea. Patient denies any particles in his urine. He has been running fevers for the last 24 hrs. Patient also has been having tremors. The family thought he may be having a panic attack. He was brought into the hospital and was found have a temp of a 102. In the light of the fact that he is on immunosuppressants and he is having fevers my concern would be that his immune system may not be strong left fight whenever infection he has. Also concern about the recurrent urinary tract infection. Had a partial colectomy a few months ago and he is on chemotherapy. Will get Urology to evaluate this as well. He should be inpatient because of the numerous comorbidities that he has in light of the fever with concurrent chemotherapy treatments. Allergies No Known Drug Allergies Allergy (Verified 05/29/17 20:33) Unknown Home Medications: Metformin HCl [Glucophage*] 1 tab PO DAILY 12/12/15 Aspirin [Aspirin EC 81 MG] 1 tab PO DAILY 05/29/17 Simvastatin [Zocor] 40 mg PO BEDTIME 05/29/17 Metoprolol Tartrate [Lopressor*] 50 mg PO BID #60 tab 03/23/18 Multivitamin with Iron [Daily Multivitamin with Iron] 1 each PO DAILY #90 tablet 03/23/18 Pantoprazole [Protonix Tab] 40 mg PO DAILY #30 tab 03/23/18 - Past Medical/Surgical History Has patient received pneumonia vaccine in the past: No Diabetic: Yes -: Hypertension -: diabetes -: Hyperlipidemia -: TIA (2012) Past Surgical History: Patient denies surgical history - Family History Father Medical History: Heart disease, Hypertension Mother Medical History: Heart disease, Hypertension, Diabetes - Social History Smoking Status: Never smoker Alcohol use: No CD- Drugs: No Caffeine use: Yes Place of Residence: Home Review of Systems 10-point ROS is otherwise unremarkable Physical Examination - Vital Signs Temperature: 100.2 F Blood Pressure: 142/71 Pulse: 87 Respirations: 16 Pulse Ox (%): 98 - Physical Exam General: Alert, In no apparent distress, Oriented x3 HEENT: Atraumatic, Normocephalic, PERRLA, Mucous membr. moist/pink Neck: Supple, 2+ carotid pulse no bruit, JVD not distended, No Thyromegaly Respiratory: Clear to auscultation bilaterally, Normal air movement Cardiovascular: Regular rate/rhythm, Normal S1 S2 Gastrointestinal: Normal bowel sounds, Soft and benign, Non-distended, No rebound, No guarding, Tenderness Musculoskeletal: No clubbing, No swelling Integumentary: No rashes Neurological: Normal strength at 5/5 x4 extr, Normal tone, Sensation intact, Cranial nerves 3-12 intact Lymphatics: No axilla or inguinal lymphadenopathy - Studies Laboratory Data (last 24 hrs) 05/05/19 01:50: PT 12.5, INR 1.06, APTT 26.6 05/05/19 01:50: WBC 5.4, Hgb 12.4 L, Hct 37.1 L, Plt Count 185 05/05/19 01:50: Sodium 139, Potassium 4.0, BUN 12, Creatinine 0.92, Glucose 145 H, Total Bilirubin 0.4, AST 71 H, ALT 70, Alkaline Phosphatase 182 H, Lipase 86 Microbiology Data (last 24 hrs): 05/05/19 01:45 Nasopharnyx Influenza Type A Antigen Screen - Final 05/05/19 01:45 Nasopharnyx Influenza Type B Antigen Screen - Final Assessment & Plan - Problems (Diagnosis) (1) Fever Current Visit: Yes Status: Acute (2) Diabetes mellitus Onset Date: 12/13/15 Current Visit: No Status: Chronic Qualifiers: Diabetes mellitus type: type 2 Diabetes mellitus complication status: without complication Qualified Code(s): E11.9 - Type 2 diabetes mellitus without complications (3) Hyperlipidemia Current Visit: No Status: Chronic Qualifiers: Hyperlipidemia type: unspecified Qualified Code(s): E78.5 - Hyperlipidemia , unspecified (4) Hypertension Onset Date: 03/23/18 Current Visit: No Status: Chronic Qualifiers: Hypertension type: essential hypertension Qualified Code(s): I10 - Essential (primary) hypertension (5) Obesity Current Visit: No Status: Chronic Qualifiers: Obesity type: due to excess calories Obesity classification: adult class 3 (BMI >= 40) Serious obesity comorbidity presence: with serious comorbidity Body mass index: BMI 40.0-44.9 Qualified Code(s): E66.01 - Morbid (severe) obesity due to excess calories; Z68.41 - Body mass index (BMI) 40.0-44.9, adult (6) Obstructive sleep apnea Current Visit: No Status: Chronic - Plan PLAN: 1. Antipyretics 2. IV hydration and IV antibiotics 3. Urology consultation 4. Cultures 5. Monitor electrolytes 6. Monitor white blood cell count 7. Concern for recurrent UTIs-recent chemotherapy you with a history of partial colectomy; questionable colovesical fistula 8. GI and DVT prophylaxis Discharge Plan: Home Plan to discharge in: Greater than 2 days - Advance Directives Does patient have a Living Will: No Does patient have a Durable POA for Healthcare: No - Code Status/Comfort Care Code Status Assessed: Yes Code Status: Full Code Critical Care: No Time Spent Managing PTS Care (In Minutes): 45
--- NOTE | 2019-05-05 07:53 | EKG ---
Test Date: 2019-05-05 Test Time: 02:19:11 Bonsai Tender: ANGEL MEASUREMENT RESULTS: Intervals: Rate: 106 IN: 136 QRSD: 78 QT: 422 QTc: 560 [place]: P: 42 IN: 136 QRS: 27 T: 25 INTERPRETIVE STATEMENTS: Sinus tachycardia Abnormal ECG Compared to ECG 11/11/2018 00:51:48 no significant change from previous ECG Electronically Signed On 05-05-19 07:52:37 CDT by Patel Gresham
[2019-05-05] MEDS ORDERED: PNEUMOCOCCAL VACCINE 0.5 ML IMVAC ONE (08:00)
[2019-05-05] MEDS: CEFTRIAXONE/SWI 1gm 1 GM/10 ML SYR IV SCH ×2 (08:01→21:00)
--- NOTE | 2019-05-05 08:11 | RAD REPORT ---
EXAM DESCRIPTION: RAD - Chest Single View - 05/05/2019 2:08 am CLINICAL HISTORY: CHEST PAIN Chest pain. COMPARISON: Chest Pa And Lat (2 Views) dated 12/11/2018; Chest Single View dated 11/11/2018; Chest Singl e View dated 04/01/2018; Chest Single View dated 03/22/2018 FINDINGS: Portable technique limits examination quality. The lungs are grossly clear. The heart is normal in size. No displaced fractures.Right-sided port cat heter its tip in the SVC near the junction with the right atrium. IMPRESSION: No acute intrathoracic process suspected.
--- NOTE | 2019-05-05 11:09 | P.PN ---
Subjective Date of Service: 05/05/19 Primary Care Provider: Dr. Brandt; Oncology-([place], [place]); Surgery-Dr. Rollins( [place], [place]) Chief Complaint: Fever; recurrent UTI; Subjective: Improving (Patient feels improved. No significant abdominal pain noted.) Physical Examination - Vital Signs Temperature: 99.2 F Blood Pressure: 142/71 Pulse: 87 Respirations: 16 Pulse Ox (%): 98 - Physical Exam General: Alert, In no apparent distress, Oriented x3, Cooperative HEENT: Atraumatic Neck: Supple Respiratory: Clear to auscultation bilaterally, Normal air movement Cardiovascular: Normal pulses, Regular rate/rhythm Gastrointestinal: Normal bowel sounds, Soft and benign, Non-distended Musculoskeletal: No erythema, No tenderness, No warmth Integumentary: No tenderness/swelling, No erythema, No warmth, No cyanosis Neurological: Normal speech, Normal strength at 5/5 x4 extr, Normal tone, Normal affect Other Physical/Emotional Findings: T-max 102.8 - Studies Laboratory Data (last 24 hrs) 05/05/19 01:50: PT 12.5, INR 1.06, APTT 26.6 05/05/19 01:50: WBC 5.4, Hgb 12.4 L, Hct 37.1 L, Plt Count 185 05/05/19 01:50: Sodium 139, Potassium 4.0, BUN 12, Creatinine 0.92, Glucose 145 H, Total Bilirubin 0.4, AST 71 H, ALT 70, Alkaline Phosphatase 182 H, Lipase 86 Microbiology Data (last 24 hrs): 05/05/19 01:45 Nasopharnyx Influenza Type A Antigen Screen - Final 05/05/19 01:45 Nasopharnyx Influenza Type B Antigen Screen - Final Medications List Reviewed: Yes Assessment & Plan Discharge Plan: Home Plan to discharge in: 48 Hours Physician Review Additional Text: Impression: Recurrent UTI Diabetes mellitus type 2, non insulin dependent Hypertension Hyperlipidemia Obstructive sleep apnea GERD History of colon cancer status post partial colectomy on chemotherapy Plan: Recurrent UTI: Continue IV antibiotic therapy and IV fluids. Previous urine culture result in March showed E coli. Await urine culture results. Provide medication for fever. Will continue to monitor closely. Will consult Urology to further evaluate. Patient reports history of possible kidney stones in the past. Patient may require CT scan to further evaluate. Will continue to monitor and reassess. Will start DVT prophylaxis-Lovenox. Diabetes mellitus type 2, non insulin dependent: Continue with sliding scale. Will monitor and adjust medication. Hypertension: Restart home medication. GERD: Restart home medication. History of colon cancer status post partial colectomy on chemotherapy: Last chemotherapy given last week with his oncologist in [facility]. Patient with partial colectomy done by surgery in [facility] months ago. Due to recurrent UTI will need to consider fistula. Urology consulted to further evaluate. Hyperlipidemia: Continue with his medication Patient with history of obstructive sleep apnea: Continue with CPAP from home Time Spent Managing Pts Care (In Minutes): 55
[2019-05-05] MEDS: NA CHLORIDE 0.9% 1,000 ML IV SCH (11:58)
[2019-05-05] MEDS ORDERED: GLUCAGON 1 MG/VIAL IM PRN (12:03)
[2019-05-05] MEDS ORDERED: D50W 25 GM/50 ML SYRINGE IV PRN (12:03)
[2019-05-05] MEDS: INSULIN -REGULAR HUMAN 50 UNIT/0.5 ML ML SQ SCH ×2 (16:30→21:00)
[2019-05-05] MEDS: ENOXAPARIN 40 MG/0.4 ML SQ SCH (16:46)
--- NOTE | 2019-05-05 17:33 | CON ---
History Of Present Illness: This is a patient who is a 58-year-old gentleman, who was diagnosed with colon cancer, status post resection. He is now on chemotherapy until August or September. The jessica ent said prior to the surgery, he was getting urinary tract infections frequently, but never saw a ur ologist. After each chemo session, he ends up to have UTI and now he has to be hospitalized for temp erature of 102. Urine cultures are pending. On physical exam, the patient has phimosis, which may b e leading to his infection. He had a CT scan showing normal upper tracts, normal bladder and prostat e. No significant findings to explain the infections. I would recommend a cystoscopy at the time of the circumcision. He is on chemo from now until September, so his circumcision will occur until or October. In the meanwhile, he will need to keep the area clean with soap and water twice a day. He has been using some antifungal creams in the area, but I believe the circumcision will make a big difference for this gentleman. I certainly do not want do it during the time that he is having chemo due to the healing problems, especially in a diabetic patient. Allergies: NO KNOWN DRUG ALLERGIES. Home Medications: Metformin, aspirin, simvastatin, metoprolol, multivitamin, Protonix. Past Medical History: He is diabetic, hyperlipidemia, TIA in 2012. Past Surgical History: As above, colon surgery. Family History: Heart disease and hypertension in father. Mother also heart disease, hypertension, and diabetes. Social History: The patient never smoked. No drugs. He does use some caffeine and lives at home wi th his . Review of Systems: A 10-point review of systems otherwise unremarkable. Physical Examination: General Appearance: He is alert, oriented, in no distress. Vital Signs: Show temperature 99.2, pulse 87, respiratory rate 16, BP 142/71, 98% sat. HEENT: Atraumatic, normocephalic. Respiratory: Clear. Cardiovascular: Normal S1, S2. Gastrointestinal: Normal bowel sounds. Soft, nontender. : Phallus, there is a partial phimosis, unable to retract foreskin. Testicles are small, bilatera lly descended. Rectal Examination: Revealed about a 30 g benign feeling prostate. Laboratory Data: Urine cultures are pending. White count is 5.4, H and H are 12 and 37, platelet co unt 185. Coagulation study is normal. Chemistry shows lactic acid elevated to 7.7. Sodium 139, pot assium 4.0, chloride 103, carbon dioxide 22, BUN 12, creatinine 0.92, GFR 85, glucose 145. Urine christine dy shows pH 5.5, blood negative, nitrate negative, esterase trace, bacteria 20-50. CT scan results a s mentioned above. Assessment: A 58-year-old gentleman with recurrent urinary tract infection. He is diabetic. He has phimosis. Upper tract studies negative. Recommending cystoscopy and circumcision which will occur until late in September or October after his chemotherapy is over. In the meanwhile, I am recommendi ng soap and water b.i.d. for the area, keep the foreskin nice and clean. He is to drink more water. He is only drinking 3 bottles of water a day. He needs to be drinking closer to 1 gallon of water p er day. MANE/MILES Voice ID: [id number] Report ID: [id number]
[2019-05-05] MEDS: ATORVASTATIN 20 MG TAB PO SCH (21:00)
[2019-05-05] MEDS: METOPROLOL TAR 50 MG TAB PO SCH (21:00)
[2019-05-06] MEDS: NA CHLORIDE 0.9% 1,000 ML IV SCH ×4 (00:06→12:00)
[2019-05-06 06:08] LABS: Protime INR 1.06
[2019-05-06 06:13] LABS: Absolute Lymphocytes (CBC) 2.2 K/uL (0.7-4.9); Basophils % 0.5 % (0-1.3); Eosinophils % 1.6 % (0-4.4); Hematocrit 33.9 % (39.6-49.0); MPV 8.9 fL (7.6-11.3); Monocytes % 13.9 % (3.3-12.3); RBC Red Blood Cell Count 4.09 M/uL (4.33-5.43)
[2019-05-06 06:28] LABS: ALT/SGPT 63 U/L (12-78); AST/SGOT 56 U/L (15-37); Albumin 3.2 g/dL (3.4-5.0); Alkaline Phosphatase 144 U/L (45-117); BUN Blood Urea Nitrogen 9 mg/dL (7-18); Bicarbonate 25 mmol/L (21-32); Bilirubin Total 0.2 mg/dL (0.2-1.0); Glucose Level 184 mg/dL (74-106); Sodium Level 142 mmol/L (136-145)
[2019-05-06] MEDS: INSULIN -REGULAR HUMAN 50 UNIT/0.5 ML ML SQ SCH ×4 (07:30→19:55)
[2019-05-06] MEDS: CEFTRIAXONE/SWI 1gm 1 GM/10 ML SYR IV SCH ×2 (08:10→19:57)
[2019-05-06] MEDS: PANTOPRAZOLE 40MG TABLET PO SCH (08:10)
[2019-05-06] MEDS: ENALAPRIL 10 MG TAB PO SCH (08:10)
[2019-05-06] MEDS: DIVALPROEX DR 500MG TAB PO SCH (08:11)
[2019-05-06] MEDS: ASPIRIN EC 81 MG TAB PO SCH (08:11)
[2019-05-06] MEDS: MULTIVIT W/ MINERAL TAB PO SCH (08:11)
[2019-05-06] MEDS: METOPROLOL TAR 50 MG TAB PO SCH ×2 (08:43→19:57)
[2019-05-06 09:09] LABS: Blood Morphology Comment NOT SEEN (NOT SEEN); Platelet Estimate ADEQ; Urine White Blood Cell Casts OK
--- NOTE | 2019-05-06 15:03 | P.PN ---
Subjective Date of Service: 05/06/19 Primary Care Provider: Dr. Brandt; Oncology-([place], [place]); Surgery-Dr. Rollins( [place], [place]) Chief Complaint: Fever; recurrent UTI; Subjective: Improving Physical Examination - Vital Signs Temperature: 97.6 F Blood Pressure: 120/69 Pulse: 76 Respirations: 18 Pulse Ox (%): 99 - Physical Exam General: Alert, In no apparent distress, Oriented x3, Cooperative HEENT: Atraumatic Neck: Supple Respiratory: Clear to auscultation bilaterally, Normal air movement Cardiovascular: Normal pulses, Regular rate/rhythm Gastrointestinal: Normal bowel sounds, Soft and benign, Non-distended Neurological: Normal speech, Normal strength at 5/5 x4 extr, Normal tone Other Physical/Emotional Findings: T-max 102.8 - Studies Medications List Reviewed: Yes Assessment & Plan Discharge Plan: Home Plan to discharge in: 24 Hours Physician Review Additional Text: Impression: Recurrent UTI with bacteremia, blood and urine culture positive for Gram negative rods Diabetes mellitus type 2, non insulin dependent Hypertension Hyperlipidemia Obstructive sleep apnea GERD History of colon cancer status post partial colectomy on chemotherapy Plan: Recurrent UTI with bacteremia, blood and urine culture positive for Gram negative rods: Continue current IV antibiotic therapy and fluids. Current urine culture shows Gram negative rods. Blood cultures 2/4 positive for Gram negative rods as well. Case discussed at length with patient. Will ambulate. Urology has evaluated patient. Patient will require circumcision in the future after his chemotherapy for colon cancer. Will continue to monitor and reassess. Will continue with DVT prophylaxis-Lovenox. Diabetes mellitus type 2, non insulin dependent: A1c 8.4. Continue with sliding scale. Will monitor and adjust medication. Will review and restart home medication Hypertension: Continue with home medication. GERD: Continue with home medication. History of colon cancer status post partial colectomy on chemotherapy: Last chemotherapy given last week with his oncologist in [facility]. Hyperlipidemia: Continue with his medication Patient with history of obstructive sleep apnea: Continue with CPAP from home Time Spent Managing Pts Care (In Minutes): 55
[2019-05-06] MEDS: NACHLORIDE 0.45% 1,000 ML IV SCH (15:40)
[2019-05-06] MEDS: METFORMIN HCL 850 MG TAB PO SCH (17:21)
[2019-05-06] MEDS: ENOXAPARIN 40 MG/0.4 ML SQ SCH (17:24)
--- NOTE | 2019-05-06 18:45 | PN ---
The patient is growing gram-negative rods in his urine. He is currently being covered with ceftriaxo ne. Does have phimosis and he will need a circumcision later along with a cystoscopy. After his kandice mo is over, he is free to follow up with me in the office. In the meanwhile, he may need some type o f cleansing. He needs to keep the area clean with soap and water twice a day. MANE/MILES Voice ID: [id number] Report ID: [id number]
[2019-05-06] MEDS: ATORVASTATIN 20 MG TAB PO SCH (19:57)
[2019-05-06 22:50] VITALS: O2SAT 97
[2019-05-07] MEDS: NACHLORIDE 0.45% 1,000 ML IV SCH (01:31)
[2019-05-07] MEDS: INSULIN -REGULAR HUMAN 50 UNIT/0.5 ML ML SQ SCH (08:41)
[2019-05-07] MEDS: ENALAPRIL 10 MG TAB PO SCH (08:42)
[2019-05-07] MEDS: MULTIVIT W/ MINERAL TAB PO SCH (08:42)
[2019-05-07] MEDS: DIVALPROEX DR 500MG TAB PO SCH (08:42)
[2019-05-07] MEDS: PANTOPRAZOLE 40MG TABLET PO SCH (08:42)
[2019-05-07] MEDS: METOPROLOL TAR 50 MG TAB PO SCH (08:43)
[2019-05-07] MEDS: ASPIRIN EC 81 MG TAB PO SCH (08:43)
[2019-05-07] MEDS: CEFTRIAXONE/SWI 1gm 1 GM/10 ML SYR IV SCH (08:43)
[2019-05-07 08:48] VITALS: BP 140/81
[2019-05-07] MEDS: METFORMIN HCL 850 MG TAB PO SCH (08:52)
[2019-05-07 08:57] VITALS: TEMP 97.9
--- NOTE | 2019-05-07 09:09 | P.DS ---
Admission Date: 05/05/19 Discharge Date: 05/07/19 Primary Care Provider: Dr. Brandt; Oncology-([place], [place]); Surgery-Dr. Rollins( [place], [place]) Disposition: ROUTINE DISCHARGE Discharge Condition: GOOD Reason for Admission: Fever; recurrent UTI; Consultations: Urology: Dr. Barry Procedures: Medical problem list: Recurrent UTI with bacteremia, blood and urine culture positive for E coli Diabetes mellitus type 2, non insulin dependent Hypertension Hyperlipidemia Obstructive sleep apnea GERD History of colon cancer status post partial colectomy on chemotherapy Chronic headaches Brief History of Present Illness: 58-year-old male presented to emergency room with fever, chills. Patient found to have UTI. Patient with history of recurring UTI. Patient also with history of diabetes and colon cancer with prior colectomy. Patient received chemotherapy last week. Patient was admitted for treatment. Hospital Course: Patient presented with recurrent UTI with bacteremia. Patient received IV fluids and antibiotic therapy. Patient was evaluated by urology. Blood and urine culture positive for E coli. At discharge, he without any fever, chills. Patient transition to oral medication. At discharge he will continue with Augmentin 875 mg 1 pill twice daily for 12 more days. Recommend to recheck blood and urine culture after that time to monitor resolution. Urology recommends follow up in 2-4 weeks to follow up this hospitalization. Urology also recommends circumcision to be done after chemotherapy in the future. Proper cleaning technique after urination educated. Patient with diabetes mellitus type 2, [id number]. Hemoglobin A1c 8.4. At discharge he will continue with his current medication-metformin 850 mg 1 pill twice daily. Recommend to maintain blood sugars less 140 fasting and less than 200 after meals. Further adjustment can be done by his PCP for better control. Patient with hypertension. This has remained stable. At discharge he will continue with his current medication-enalapril 20 mg daily, metformin 50 mg 1 pill twice daily. Recommend to maintain blood pressures less 150/80. Further adjustment can be done by his PCP. Patient with history of GERD. At discharge he will continue with his medication -Protonix 40 mg daily. Patient with hyperlipidemia. At discharge he will continue with his current medication-Zocor 40 mg daily. Patient with chronic headaches. Patient is taking Depakote 500 mg daily. Further adjustment can be done by his PCP. Patient may require neurology evaluation as an outpatient to further address. Patient with history of colon cancer status post partial colectomy. Patient currently on chemotherapy. Patient will follow up with Oncology in [place], [place] in 1 week. Patient may restart chemotherapy after resolution of UTI and bacteremia. Vital Signs/Physical Exam: Temp Pulse Resp BP Pulse Ox 97.9 F 75 15 140/81 96 05/07/19 08:00 05/07/19 08:43 05/07/19 08:00 05/07/19 08:43 05/07/19 08:00 General: Alert, In no apparent distress, Oriented x3, Cooperative HEENT: Atraumatic Neck: Supple Respiratory: Clear to auscultation bilaterally, Normal air movement Cardiovascular: Normal pulses, Regular rate/rhythm Gastrointestinal: Normal bowel sounds, Soft and benign, Non-distended Musculoskeletal: No erythema, No tenderness, No warmth Integumentary: No tenderness/swelling, No erythema, No warmth, No cyanosis Neurological: Normal speech, Normal strength at 5/5 x4 extr, Normal tone, Normal affect Laboratory Data at Discharge: WBC 6.9 K/uL (4.3-10.9) D 05/06/19 05:24 Hgb 11.6 g/dL (13.6-17.9) L 05/06/19 05:24 Hct 33.9 % (39.6-49.0) L 05/06/19 05:24 Plt Count 175 K/uL (152-406) 05/06/19 05:24 PT 12.5 SECONDS (9.5-12.5) 05/06/19 05:24 INR 1.06 05/06/19 05:24 APTT 29.3 SECONDS (24.3-36.9) 05/06/19 05:24 Sodium 142 mmol/L (136-145) 05/06/19 05:24 Potassium 4.0 mmol/L (3.5-5.1) 05/06/19 05:24 BUN 9 mg/dL (7-18) 05/06/19 05:24 Creatinine 0.72 mg/dL (0.55-1.3) 05/06/19 05:24 Glucose 184 mg/dL (74-106) H 05/06/19 05:24 Total Bilirubin 0.2 mg/dL (0.2-1.0) 05/06/19 05:24 AST 56 U/L (15-37) H 05/06/19 05:24 ALT 63 U/L (12-78) 05/06/19 05:24 Alkaline Phosphatase 144 U/L (45-117) H 05/06/19 05:24 Lipase 86 U/L (73-393) 05/05/19 01:50 Home Medications: Aspirin [Aspirin EC 81 MG] 1 tab PO DAILY 05/29/17 Simvastatin [Zocor] 40 mg PO BEDTIME 05/29/17 Metoprolol Tartrate [Lopressor*] 50 mg PO BID #60 tab 03/23/18 Multivitamin with Iron [Daily Multivitamin with Iron] 1 each PO DAILY #90 tablet 03/23/18 Pantoprazole [Protonix Tab*] 40 mg PO DAILY #30 tab 03/23/18 Divalproex Sodium [Depakote] 1 tab PO DAILY 05/05/19 Enalapril Maleate [Vasotec] 1 tab PO DAILY 05/05/19 Metformin HCl [Glucophage*] 1 tab PO BID 05/05/19 Amox/Clavulanate [Augmentin 875-125 Tab] 1 each PO BID #24 tab 05/07/19 New Medications: Amox/Clavulanate [Augmentin 875-125 Tab] 1 each PO BID #24 tab Patient Discharge Instructions: 1. Follow up PCP in 1-2 weeks to follow up this hospitalization. 2. Patient presented with recurrent UTI with bacteremia. Patient received IV fluids and antibiotic therapy. Patient was evaluated by urology. Blood and urine culture positive for E coli. At discharge, he without any fever, chills. Patient transition to oral medication. At discharge he will continue with Augmentin 875 mg 1 pill twice daily for 12 more days. Recommend to recheck blood and urine culture after that time to monitor resolution. Urology recommends follow up in 2-4 weeks to follow up this hospitalization. Urology also recommends circumcision to be done after chemotherapy in the future. Proper cleaning technique after urination educated. 3. Patient with diabetes mellitus type 2, non-insulin- dependent. Hemoglobin A1c 8.4. At discharge he will continue with his current medication-metformin 850 mg 1 pill twice daily. Recommend to maintain blood sugars less 140 fasting and less than 200 after meals. Further adjustment can be done by his PCP for better control. 4. Patient with hypertension. This has remained stable. At discharge he will continue with his current medication- enalapril 20 mg daily, metformin 50 mg 1 pill twice daily. Recommend to maintain blood pressures less 150/80. Further adjustment can be done by his PCP. 5. Patient with history of GERD. At discharge he will continue with his medication-Protonix 40 mg daily. 6. Patient with hyperlipidemia. At discharge he will continue with his current medication-Zocor 40 mg daily. 7. Patient with chronic headaches. Patient is taking Depakote 500 mg daily for this. Recommended neurology evaluation as an outpatient to further evaluate and address. 8. Patient with history of colon cancer status post partial colectomy. Patient currently on chemotherapy. Patient will follow up with Oncology in [place], [place] in 1 week. Patient may restart chemotherapy after resolution of UTI and bacteremia. Diet: ADA Activity: Ad thu Time spent managing pt's care (in minutes): 55
--- NOTE | 2019-05-07 12:32 | PN ---
Subjective: The patient is doing well. He is scheduled to go home. He had an E coli in the blood and urine. He is going to be going home on p.o. antibiotics for at least 2 more weeks. Again, he will need a circumcision and cystoscopy to evaluate the lower tracts. His E coli was sensitive to Bactrim and Augmentin, resistant to Levaquin and Cipro, sensitive to meropenem. Continue medical management. Follow up with me after chemotherapy is over. LOLIS Voice ID: [id number] Report ID: [id number]
== END 2019-05-07 11:01 | disposition home or self-care (01) | DRG 690 ==
LOC: ER 01:19 → INTOOBSV 03:59 → OBSVTOIN 03:59 → 4TH 03:59 → OBSVTOIN 07:52
PROVIDERS: ADMIT Hospitalist; ATTEND Family Medicine
DX: N39.0 Urinary tract infection, site not specified (principal); C18.9 Malignant neoplasm of colon, unspecified; R78.81 Bacteremia; Z68.41 Body mass index [BMI] 40.0-44.9, adult; B96.20 Unspecified Escherichia coli [E. coli] as the cause of diseases classified elsewhere; E11.9 Type 2 diabetes mellitus without complications; E78.5 Hyperlipidemia, unspecified; I10 Essential (primary) hypertension; E66.01 Morbid (severe) obesity due to excess calories; G47.33 Obstructive sleep apnea (adult) (pediatric); K21.9 Gastro-esophageal reflux disease without esophagitis; Z86.73 Personal history of transient ischemic attack (TIA), and cerebral infarction without residual deficits; Z79.84 Long term (current) use of oral hypoglycemic drugs; Z79.82 Long term (current) use of aspirin; Z90.49 Acquired absence of other specified parts of digestive tract; N47.1 Phimosis
CPT/HCPCS: 36415; 71045; 74176; 80048; 80053; 80076; 81003; 81015; 82550; 82553; 82962; 83036; 83605; 83690; 84145; 84484; 85025; 85610; 85730; 86850; 86900; 86901; 87040; 87077; 87086; 87088; 87186; 87205; 87804; 93005; 96361; 96374; 97162; 99285; G0378; J0696; J1650; J7030

== ENCOUNTER 2019-09-16 13:17 | Emergency (ER) | payer OTHER ==
--- NOTE | 2019-09-16 15:25 | RAD REPORT ---
EXAM DESCRIPTION: CT - Ct Stroke Brain Wo Cont - 09/16/2019 3:18 pm CLINICAL HISTORY: Dizziness COMPARISON: August 17, 2019 TECHNIQUE: Computed axial tomography of the head was obtained. All CT scans are performed using dose optimization technique as appropriate and may include automated exposure control or mA/KV adjustment according to patient size. FINDINGS: An intracranial bleed is not seen . The ventricles are normal in caliber. No extra-axial fluid collection is noted. Fluid within the sinuses/ mastoids is not seen. IMPRESSION: No acute intracranial abnormality is seen. If patient's symptoms persist MRI of the bra in would be recommended. Dr Montez of the emergency room was notified at 3:21 p.m. September 16, 2019
[2019-09-16] MEDS ORDERED: MECLIZINE HCL 12.5 MG TAB ONE (15:55)
[2019-09-16 16:05] LABS: Absolute Lymphocytes (CBC) 2.1 K/uL (0.7-4.9); Basophils % 0.7 % (0-1.3); Hematocrit 34.3 % (39.6-49.0); Lymphocytes % 30.2 % (15.3-44.8); MPV 10.1 fL (7.6-11.3); RBC Red Blood Cell Count 3.87 M/uL (4.33-5.43)
[2019-09-16 16:12] LABS: BUN Blood Urea Nitrogen 16 mg/dL (7-18); Bicarbonate 27 mmol/L (21-32); Glucose Level 119 mg/dL (74-106); Potassium 3.8 mmol/L (3.5-5.1); Sodium Level 142 mmol/L (136-145)
[2019-09-16 16:19] LABS: Protime INR 1.06
--- NOTE | 2019-09-16 16:20 | RAD REPORT ---
EXAM DESCRIPTION: Vazquez Single View09/16/2019 3:26 pm CLINICAL HISTORY: Chest pain COMPARISON: April 2019 FINDINGS: The lungs appear clear of acute infiltrate. The heart is normal size Central venous line in place IMPRESSION: No acute abnormalities displayed
--- NOTE | 2019-09-16 17:21 | EKG ---
Test Date: 2019-09-16 Test Time: 15:54:34 Aerospace Project Engineer: SHARYN MEASUREMENT RESULTS: Intervals: Rate: 68 MT: 158 QRSD: 88 QT: 434 QTc: 461 Bowen: P: 18 MT: 158 QRS: 26 T: 26 INTERPRETIVE STATEMENTS: Normal sinus rhythm Normal ECG Compared to ECG 05/05/2019 02:19:11 Sinus tachycardia no longer present Electronically Signed On 09-16-19 17:21:15 UNIONMELT OPERATOR by Kvng Marsh
--- NOTE | 2019-09-16 18:03 | RAD REPORT ---
EXAM DESCRIPTION: MRI - Brain W/Wo Cont - 09/16/2019 5:50 pm CLINICAL HISTORY: Dizziness, TIA, colon cancer COMPARISON: September 16, [address] TECHNIQUE: Axial, sagittal, and coronal magnetic images of the brain were obtained. 20 cc MultiHance administered intravenously FINDINGS: Mild signal within periventricular, deep and subcortical white matter probably ischemic ch anges secondary to small vessel disease The ventricles are normal in caliber. Diffusion-weighted/ ADC mapping sequences do not demonstrate evidence of an acute infarction. No abnormal enhancement within the brain is seen. An extra-axial fluid collection is not noted. Fluid within the sinuses/mastoids is not seen IMPRESSION: No acute abnormality displayed
--- NOTE | 2019-09-16 18:05 | RAD REPORT ---
EXAM DESCRIPTION: MRI - MRA Head Wo Cont - 09/16/2019 5:50 pm CLINICAL HISTORY: TIA COMPARISON: None. TECHNIQUE: Magnetic resonance angiogram was performed. 3D MIPS reconstruction performed FINDINGS: The anterior cerebral, middle cerebral, posterior cerebral, distal internal carotid and ba silar arteries do not demonstrate a significant stenosis. An aneurysm is not displayed. Dolichoectasia of the vertebrobasilar artery IMPRESSION: No significant abnormality displayed
--- NOTE | 2019-09-16 18:08 | RAD REPORT ---
EXAM DESCRIPTION: MRI - MRA Neck W/Wo Cont - 09/16/2019 5:50 pm CLINICAL HISTORY: TIA COMPARISON: None. TECHNIQUE: Magnetic resonance angiogram of the neck was performed. 19 cc MultiHance was administered intravenously. 3D MIPS reconstruction performed FINDINGS: The common carotid, internal carotid and external carotid arteries do not demonstrate a si gnificant stenosis. An aneurysm is not seen. Minimal plaque is present within the arteries. The vertebral arteries are codominant without visualization of an abnormality. IMPRESSION: No significant abnormality displayed NASCET criteria used. Mild 0-49% stenosis Moderate 50-69% stenosis Severe 70-99% stenosis
--- NOTE | 2019-09-16 19:27 | ER ---
Nurse's Notes [facility] Name: Taiwo Chery Age: 59 yrs Sex: Male : 1960 Arrival Date: 09/16/2019 Time: 13:19 Bed 28 Private MD: DIEGO NELSON Diagnosis: Dizziness and giddiness Presentation: 09/16 13:25 Presenting complaint: Patient states: dizziness that has been going on for a few days, sv intermittent anxiety attacks. Transition of care: patient was not received from another setting of care. Onset of symptoms was September 2019. Risk Assessment: Do you want to hurt yourself or someone else? Patient reports no desire to harm self or others. Care prior to arrival: None. 13:25 Method Of Arrival: Wheelchair sv 13:25 Acuity: LEONARD 3 sv 19:36 Initial Sepsis Screen: Does the patient meet any 2 criteria? Does the patient have a tr5 suspected source of infection? No. Patient's initial sepsis screen is negative. Triage Assessment: 13:25 General: Appears in no apparent distress. uncomfortable, Behavior is cooperative, sv appropriate for age, anxious. Pain: Denies pain. Neuro: Level of Consciousness is awake, alert, obeys commands. Respiratory: Respiratory effort is even, unlabored. Historical: - Allergies: 13:26 NKDA; sv - PMHx: 13:26 Anxiety; colon cancer; Diabetes - NIDDM; Headaches; Hyperlipidemia; Hypertension; TIA; sv - PSHx: 13:26 colon surgery; sv - Immunization history:: Adult Immunizations up to date. - Social history:: Smoking status: unknown. - Ebola Screening: : Patient negative for fever greater than or equal to 101.5 degrees Fahrenheit, and additional compatible Ebola Virus Disease symptoms. Screenin:30 Abuse screen: Denies threats or abuse. Nutritional screening: No deficits noted. tr5 Tuberculosis screening: No symptoms or risk factors identified. Fall Risk None identified. 15:00 Patient has been NPO before screening. The patient is alert, able to follow commands. tr5 The patient does not exhibit slurred or garbled speech The patient is not exhibiting difficulty speaking. The patient does not exhibit difficulty understanding words. The patient is able to swallow own secretions with no drooling or need for suction. Patient tolerated one teaspoon of water. No drooling, immediate coughing, gurgling, or clearing of the throat was noted. The patient tolerated 90mL of water. No drooling, immediate coughing, gurgling, or clearing of the throat was noted. The patient passed the bedside swallow screening. Oral medications may be given as ordered. Contact Physician for further diet orders. Provider notified of bedside swallow screening results: Errol Montez MD. Assessment: 14:30 General: Appears uncomfortable, Behavior is cooperative, drowsy. Pain: Denies pain. tr5 Neuro: Level of Consciousness is awake, alert, obeys commands, Oriented to person, place, Reports dizziness, headache. Cardiovascular: Heart tones present Capillary refill < 3 seconds Pulses are all present. Respiratory: Airway is patent Respiratory effort is even, unlabored, Respiratory pattern is regular, symmetrical. GI: No signs and/or symptoms were reported involving the gastrointestinal system. : No signs and/or symptoms were reported regarding the genitourinary system. EENT: No signs and/or symptoms were reported regarding the EENT system. Derm: No signs and/or symptoms reported regarding the dermatologic system. Musculoskeletal: No signs and/or symptoms reported regarding the musculoskeletal system. Parent/caregiver report the patient having weakness in Generalized. 15:30 Reassessment: Patient appears in no apparent distress at this time. Patient and/or tr5 family updated on plan of care and expected duration. Pain level reassessed. Family with patient at bedside. 16:30 Reassessment: Patient appears in no apparent distress at this time. Patient and/or tr5 family updated on plan of care and expected duration. Pain level reassessed. Patient is alert, oriented x 3, equal unlabored respirations, skin warm/dry/pink. 17:30 Reassessment: Patient appears in no apparent distress at this time. No changes from tr5 previously documented assessment. Patient and/or family updated on plan of care and expected duration. Pain level reassessed. Vital Signs: 13:26 BP 123 / 71; Pulse 72; Resp 20; Temp 98.2; Pulse Ox 97% ; Weight 107.05 kg; Height 5 sv ft. 2 in. (157.48 cm); 14:20 BP 107 / 72; Pulse 66; Resp 16; Pulse Ox 100% on R/A; tr5 15:40 BP 107 / 62; Pulse 67; Resp 16; Pulse Ox 98% on R/A; tr5 17:00 BP 100 / 60; Pulse 78; Resp 16; Pulse Ox 100% ; tr5 18:33 BP 117 / 86 Supine; Pulse 86; tr5 18:33 BP 131 / 76 Sitting; Pulse 82; tr5 18:34 BP 129 / 86 Standing; Pulse 84; tr5 13:26 Body Mass Index 43.16 (107.05 kg, 157.48 cm) sv ED Course: 13:19 Patient arrived in ED. as 13:19 DIEGO NELSON is Private Physician. as 13:26 Triage completed. sv 13:26 Arm band placed on. sv 14:15 Wyatt Chery, RN is Primary Nurse. tr5 14:28 Errol Montez MD is Attending Physician. kdr 14:30 Placed in gown. Bed in low position. Call light in reach. Side rails up X 1. Adult w/ tr5 patient. 15:19 CT Stroke Brain w/o Contrast In Process Unspecified. EDMS 15:35 Inserted saline lock: 20 gauge in left antecubital area, using aseptic technique. Blood jp3 collected. Patient maintains SpO2 saturation greater than 95% on room air. 15:35 Initial lab(s) drawn, by me, sent to lab. X-ray(s) taken. jp3 15:54 Stroke CXR 1 View In Process Unspecified. EDMS 16:00 EKG done, by broadcast operations technician. reviewed by Errol Montez MD. sm3 16:05 Lab(s) recollected, by me, sent to lab. jp3 16:16 Lactate Sent. jp3 17:51 MRA Head Wo Cont In Process Unspecified. EDMS 17:51 Brain W/Wo Cont In Process Unspecified. EDMS 17:51 MRA Neck W/Wo Cont In Process Unspecified. EDMS 18:56 Depakote Sent. tr5 19:26 DIEGO NELSON is Referral Physician. kdr 19:26 Brent Jules MD is Referral Physician. kdr 19:35 No provider procedures requiring assistance completed. IV discontinued. tr5 Administered Medications: 15:57 Drug: Meclizine 25 mg Route: PO; tr5 16:45 Follow up: Response: Marked relief of symptoms tr5 Outcome: 19:26 Discharge ordered by . kdr 19:35 Discharged to home ambulatory, with family. tr5 19:35 Condition: stable 19:35 Discharge instructions given to patient, family, Instructed on discharge instructions, follow up and referral plans. medication usage, Demonstrated understanding of instructions, follow-up care, medications, Prescriptions given X 1. 19:37 Patient left the ED. tr5 Signatures: Dispatcher [employer] EDGretchen Carson RN RN Errol Montez MD MD kdr Martinez, Amelia as Montes, Shakira 3 Vicente Salinas jp3 Wyatt Chery RN RN tr5 Corrections: (The following items were deleted from the chart) 17:33 17:00 BP 123 / 87; Pulse 78bpm; Resp 16bpm; Pulse Ox 100%; tr5 tr5
--- NOTE | 2019-09-16 19:28 | EDPHYS ---
Physician Documentation [facility] Name: Taiwo Chery Age: 59 yrs Sex: Male : 1960 Arrival Date: 09/16/2019 Time: 13:19 Bed 28 Private MD: DIEGO NELSON ED Physician Errol Montez HPI: 09/16 18:47 This 59 yrs old Male presents to ER via Wheelchair with complaints of kdr Dizziness - cancer pt. 18:47 The patient presents with dizziness. The patient presents with generalized weakness, kdr lightheadedness. Onset: The symptoms/episode began/occurred This is an ongoing and intermittent problem that was mush worse this morning. The patient is on chemo and has seen several doctors for this problem in the past and last week Dr. Jules had ordered a CT \T\ MRI which were apparently negative according to the family. Context: occurred at home. Modifying factors: The symptoms are alleviated by nothing, the symptoms are aggravated by movement of head, standing up, changing position. Associated signs and symptoms: Pertinent positives: headache, Pertinent negatives: abdominal pain, agitation, ataxia, blurred vision, diaphoresis, focal weakness, head injury, near-syncope, numbness, palpitations. Historical: - Allergies: 13:26 NKDA; sv - PMHx: 13:26 Anxiety; colon cancer; Diabetes - NIDDM; Headaches; Hyperlipidemia; Hypertension; TIA; sv - PSHx: 13:26 colon surgery; sv - Immunization history:: Adult Immunizations up to date. - Social history:: Smoking status: unknown. - Ebola Screening: : Patient negative for fever greater than or equal to 101.5 degrees Fahrenheit, and additional compatible Ebola Virus Disease symptoms. ROS: 18:47 Constitutional: Negative for fever, chills, and weight loss, Eyes: Negative for injury, kdr pain, redness, and discharge, ENT: Negative for injury, pain, and discharge, Neck: Negative for injury, pain, and swelling, Cardiovascular: Negative for chest pain, palpitations, and edema, Respiratory: Negative for shortness of breath, cough, wheezing, and pleuritic chest pain, Abdomen/GI: Negative for abdominal pain, nausea, vomiting, diarrhea, and constipation, Back: Negative for injury and pain, : Negative for injury, bleeding, discharge, and swelling, MS/Extremity: Negative for injury and deformity, Skin: Negative for injury, rash, and discoloration, Psych: Negative for depression, anxiety, suicide ideation, homicidal ideation, and hallucinations, Allergy/Immunology: Negative for hives, rash, and allergies, Endocrine: Negative for neck swelling, polydipsia, polyuria, polyphagia, and marked weight changes, Hematologic/Lymphatic: Negative for swollen nodes, abnormal bleeding, and unusual bruising. 18:47 Neuro: Positive for dizziness, headache, Negative for altered mental status, hearing loss, loss of consciousness, seizure activity, speech changes, visual changes, weakness. Exam: 18:47 Constitutional: This is a well developed, well nourished patient who is awake, alert, kdr and in no acute distress. Head/Face: Normocephalic, atraumatic. Eyes: Pupils equal round and reactive to light, extra-ocular motions intact. Lids and lashes normal. Conjunctiva and sclera are non-icteric and not injected. Cornea within normal limits. Periorbital areas with no swelling, redness, or edema. Neck: Trachea midline, no thyromegaly or masses palpated, and no cervical lymphadenopathy. Supple, full range of motion without nuchal rigidity, or vertebral point tenderness. No Meningismus. Chest/axilla: Normal chest wall appearance and motion. Nontender with no deformity. No lesions are appreciated. Cardiovascular: Regular rate and rhythm with a normal S1 and S2. No gallops, murmurs, or rubs. Normal PMI, no JVD. No pulse deficits. Respiratory: Lungs have equal breath sounds bilaterally, clear to auscultation and percussion. No rales, rhonchi or wheezes noted. No increased work of breathing, no retractions or nasal flaring. Abdomen/GI: Soft, non-tender, with normal bowel sounds. No distension or tympany. No guarding or rebound. No evidence of tenderness throughout. Back: No spinal tenderness. No costovertebral tenderness. Full range of motion. Skin: Warm, dry with normal turgor. Normal color with no rashes, no lesions, and no evidence of cellulitis. MS/ Extremity: Pulses equal, no cyanosis. Neurovascular intact. Full, normal range of motion. Neuro: Awake and alert, GCS 15, oriented to person, place, time, and situation. Cranial nerves II-XII grossly intact. Motor strength 5/5 in all extremities. Sensory grossly intact. Cerebellar exam normal. Normal gait. Psych: Awake, alert, with orientation to person, place and time. Behavior, mood, and affect are within normal limits. Vital Signs: 13:26 BP 123 / 71; Pulse 72; Resp 20; Temp 98.2; Pulse Ox 97% ; Weight 107.05 kg; Height 5 sv ft. 2 in. (157.48 cm); 14:20 BP 107 / 72; Pulse 66; Resp 16; Pulse Ox 100% on R/A; tr5 15:40 BP 107 / 62; Pulse 67; Resp 16; Pulse Ox 98% on R/A; tr5 17:00 BP 100 / 60; Pulse 78; Resp 16; Pulse Ox 100% ; tr5 18:33 BP 117 / 86 Supine; Pulse 86; tr5 18:33 BP 131 / 76 Sitting; Pulse 82; tr5 18:34 BP 129 / 86 Standing; Pulse 84; tr5 13:26 Body Mass Index 43.16 (107.05 kg, 157.48 cm) sv MDM: 18:47 Data reviewed: vital signs, nurses notes, lab test result(s), radiologic studies. kdr Counseling: I had a detailed discussion with the patient and/or guardian regarding: the historical points, exam findings, and any diagnostic results supporting the discharge/admit diagnosis, lab results, radiology results, the need for outpatient follow up. ED course: The patient felt better with the interventions given.. 18:53 ED course: Orthostatics are negative. kdr 19:26 Patient medically screened. kdr 09/16 14:58 Order name: Basic Metabolic Panel; Complete Time: 16:33 kdr 09/16 14:58 Order name: CBC with Diff kdr 09/16 14:58 Order name: Protime (+inr); Complete Time: 16:33 kdr 09/16 14:58 Order name: Ptt, Activated; Complete Time: 16:33 kdr 09/16 14:58 Order name: Procalcitonin; Complete Time: 17:59 kdr 09/16 14:59 Order name: Lactate; Complete Time: 17:59 kdr 09/16 14:58 Order name: CT Stroke Brain w/o Contrast; Complete Time: 16:33 kdr 09/16 14:58 Order name: Stroke CXR 1 View; Complete Time: 17:59 kdr 09/16 16:09 Order name: Glucose, Ancillary Testing; Complete Time: 16:33 EDMS 09/16 17:24 Order name: MRA Head Wo Cont; Complete Time: 18:20 EDMS 09/16 17:38 Order name: Brain W/Wo Cont; Complete Time: 18:20 EDMS 09/16 18:26 Order name: Depakote kdr 09/16 18:27 Order name: Valproic Acid (Depakene) Level EDMS 09/16 14:58 Order name: EKG; Complete Time: 15:01 kdr 09/16 14:58 Order name: Accucheck; Complete Time: 15:58 kdr 09/16 14:58 Order name: Cardiac monitoring; Complete Time: 15:00 kdr 09/16 14:58 Order name: EKG - Nurse/Tech; Complete Time: 15:52 kdr 09/16 14:58 Order name: IV Saline Lock; Complete Time: 15:51 kdr 09/16 14:58 Order name: Labs collected and sent; Complete Time: 15:51 kdr 09/16 14:58 Order name: NPO; Complete Time: 15:01 kdr 09/16 14:58 Order name: O2 Per Protocol; Complete Time: 15:00 kdr 09/16 14:58 Order name: O2 Sat Monitoring; Complete Time: 15:00 kdr 09/16 14:58 Order name: Stroke Swallow Screen; Complete Time: 15:58 kdr 09/16 17:38 Order name: MRA Neck W/Wo Cont; Complete Time: 18:20 EDMS 09/16 18:26 Order name: Orthostatics; Complete Time: 18:37 kdr Administered Medications: 15:57 Drug: Meclizine 25 mg Route: PO; tr5 16:45 Follow up: Response: Marked relief of symptoms tr5 Disposition: 09/16/19 19:26 Discharged to Home. Impression: Dizziness and giddiness. - Condition is Stable. - Discharge Instructions: Dizziness, [id number]. - Prescriptions for Meclizine 25 mg Oral Tablet - take 1 tablet by ORAL route every 8 hours As needed; 15 tablet. - Medication Reconciliation Form, Thank You Letter, SBAR form, Work release form form. - Follow up: DIEGO NELSON; When: 2 - 3 days; Reason: If symptoms return, Further diagnostic work-up, Recheck today's complaints, Continuance of care, Re-evaluation by your physician. Follow up: Brent Jules MD; When: 2 - 3 days; Reason: If symptoms return, Further diagnostic work-up, Recheck today's complaints, Continuance of care, Re-evaluation by your physician. - Problem is an acute exacerbation. - Symptoms have improved. Signatures: Dispatcher [employer] [facility] Gretchen West RN RN Errol Montez MD MD [facility] Wyatt Chery RN RN tr5 Corrections: (The following items were deleted from the chart) 17:24 15:01 MR STROKE PROTOCOL+MRI.RAD.BRZ ordered. [facility] 19:37 19:26 09/16/2019 19:26 Discharged to Home. Impression: Dizziness and giddiness. tr5 Condition is Stable. Forms are SBAR form, Medication Reconciliation Form, Thank You Letter, Antibiotic Education, Prescription Opioid Use. Follow up: DIEGO NELSON; When: 2 - 3 days; Reason: If symptoms return, Further diagnostic work-up, Recheck today's complaints, Continuance of care, Re-evaluation by your physician. Follow up: Brent Jules; When: 2 - 3 days; Reason: If symptoms return, Further diagnostic work-up, Recheck today's complaints, Continuance of care, Re-evaluation by your physician. Problem is an acute exacerbation. Symptoms have improved. kdr
[2019-09-16 20:04] VITALS: TEMP 98.2
[2019-09-16 20:09] VITALS: O2SAT 100
[2019-09-16 20:12] VITALS: BP 129/86
--- OUTSIDE RECORDS SUMMARY | 2019-09-20 03:57 | XMS REPORT ---
:1960 Author Organization [facility] Address [address] [place] [address] Care Team Providers Name Role Phone Unavailable [...] FLUOROSCOPY 0-60 MIN 2019-01-14 10:27:00 Name: RACHAEL BEARD : 1960 Age/S: 58 / M [id number] Unit #: [id number] Loc: [place] [address] Phys: Kevin Rollins MD Acct: [id number] Dis Date: Status: REG [facility] [place] PHONE #: [phone] Exam Date: 01/14/2019 0910 FAX #: Reason: PORT A CATH PLACEMENT EXAMS: CPT: [id number] XR FLUOROSCOPY 0-60 MIN 69200 Fluoro Time: 8 SEC DAP (Gy m2): [...] BEARD : 1960 Age/S: 58 / M [id number] Unit #: [id number] Loc: [place] [address] Phys: Kevin Rollins MD Acct: [id number] Dis Date: Status: REG [place] PHONE #: [phone] Exam Date: 01/14/2019 0910 FAX #: Reason: PORT A CATH PLACEMENT EXAMS: CPT: [id number] XR FLUOROSCOPY 0-60 MIN 83783 Fluoro Time: 8 SEC DAP (Gy m2): Air Kerma (mGy): <Continued> Technologist: Sandy Lucero, RT(R)(CT); Mary Carbajal RT(R) [facility] Date/Time: 01/14/2019 (1027) [email or web address] Orig Print D/T: S: 01/14/2019 (1030) PAGE 2 Signed Report GLUCOSE BEDSIDE TESTING 2019-01-14 10:17:00 Test Item Value Reference Range Comments GLUCOSE BEDSIDE TESTING (test code=GLUBED) 140 mg/dL 70-110 - XR CHEST 1 [id number] 10:04:00 Name: RACHAEL BEARD : 1960 Age/S: 58 / M [id number] Unit #: [id number] Loc: [place] [address] Phys: Kevin Rollins MD Acct: [id number] Dis Date: Status: REG [place] PHONE #: [phone] Exam Date: 01/14/2019 0955 FAX #: Reason: port placement EXAMS: CPT: [id number] XR CHEST 1 V 21490 Fluoro Time: DAP (Gy m2): Air Kerma [...] PAGE 1 Signed Report Name: RACHAEL BEARD [facility] : 1960 Age/S: 58 / M [address] Unit #: [id number] Loc: [place] [address] Phys: Kevin Rollins MD Acct: [id number] Dis Date: Status: [facility] PHONE #: [phone] ExamDate: 01/14/2019 0955 FAX #: Reason: port placement EXAMS: CPT: [id number] XR CHEST 1 V 39779 Fluoro Time: DAP (Gy m2): Air Kerma (mGy): < Continued> Technologist: Rachael Izquierdo, RT(R)(CT); Verenice Carbajal RT(R) [facility] Date/Time: 01/14/2019 (1004) [email or web address] Orig Print D/T: S: 01/14/2019 (1007) PAGE 2 Signed ReportGLUCOSE BEDSIDE [id number] 07: 20:00 Test Item Value Reference Range Comments GLUCOSE BEDSIDE TESTING (test code=GLUBED) 137 mg/dL 70-110 [id number] 16:52:00 RUN DATE: 01/06/19 [facility] - LAB *LIVE* PAGE 1 RUN TIME: 165 Specimen Inquiry RUN USER: INTERFACE PATIENT: RACHAEL BEARD LOC: [place] U #: [id number] AGE/SX: 58/M ROOM: [facility] RE12/31/18[facility] DR: Kevin Rollins MD : [birth year] BED: 1 DIS: 01/02/19 STATUS: DIS IN TLOC: SPEC #: [id number] RECD: 01/01/19 STATUS: MARCIA REQ #: [id number] ONELIA: 12/31/[address] [facility] [address]: Kevin Rollins MD ENTERED: 01/01/19 SP TYPE: SURG OTHR DR: Shamar Abreu ORDERED: SURG PATH LVL 6 COPIES TO: Shamar Abreu [address] [place] [address] [place] [id number] [address] HISTOLOGY: TISSUE ID BLK PCS CESAR LEV PROCEDURE DISPOSITION ____ ___ ___ ___ __ SIGMOID COLON A 1-15 1 PROCEDURES: SURG PATH LVL 6 (01/01/19-915) TISSUES: A. SIGMOID COLON - SIGMOID COLON AND ANASTOMATIC COLON RINGS CLINICAL HISTORY COLON RECTAL CANCER -C18.9 CPT CODES CPT CODE(S): 69836 , , , , , , FINAL DIAGNOSIS Colon, sigmoid, anastomotic donuts, partial colectomy: MODERATELY DIFFERENTIATED COLORECTAL ADENOCARCINOMA, 6 CM GREATEST DIMENSION 7 LYMPH NODES POSITIVE FOR METASTATIC CARCINOMA (7/10) MARGINS NEGATIVE CONTINUED ON NEXT PAGE RUN DATE: 01/06/19 [facility] - LAB *LIVE* PAGE 2 RUN TIME: 1652 Specimen Inquiry RUN USER: INTERFACE SPEC #: [id number] PATIENT: RACHAEL BEARD #[id number] (Continued) GROSS DESCRIPTION Sigmoid colon and anastomotic [...] A3 Entire circumference of distal margin A4-A5 [employer] Service Representative sections of the lesion A6 Tumor with normal mucosa of proximal margin A7 Tumor with normal mucosa of closest distal margin A8 Normal mucosa A9 Labor Service Representative sections of largest anastomotic ring A10 Labor Service Representative sections of second anastomotic ring A11 Labor Service Representative sections of mesentery A12-A14 [employer] Service Representative sections of mesentery with possible matted lymph nodes A15-A20 Entire lymph nodes, one lymph node each A21 Two lymph nodes A22 Two lymph nodes, serially [id number] Three lymph nodes Grossing performed at [facility] Pathology, [facility] [facility], [address], [place], [place] [address]. Cutter Brake Lining: Hany Haji M.D. MICROSCOPIC DESCRIPTION Sigmoid colon [...] CONTINUED ON NEXT PAGE RUN DATE: 01/06/19 [facility] - LAB *LIVE* PAGE 3 RUNTIME: 737 Specimen Inquiry RUN USER: INTERFACE SPEC #: [id number] PATIENT: RACHAEL BEARD #[id number] (Continued) MICROSCOPIC DESCRIPTION (Continued) demonstrates moderately differentiated [...] 01/06/19 1652 END OF REPORT GLUCOSE BEDSIDE [id number] 17:20:00 Test Item Value Reference Range Comments GLUCOSE BEDSIDE TESTING (test code=GLUBED) 103 mg/dL 70-110 GLUCOSE BEDSIDE [id number] 11:28:00 Test Item Value Reference Range Comments GLUCOSE BEDSIDE TESTING (test code=GLUBED) 87 mg/dL 70-110 GLUCOSE BEDSIDE [id number] 07:23:00 Test Item Value Reference Range Comments GLUCOSE BEDSIDE TESTING (test code=GLUBED) 108 mg/dL 70-110 GLUCOSE BEDSIDE [id number] 20:29:00 Test Item Value Reference Range Comments GLUCOSE BEDSIDE TESTING (test code=GLUBED) 99 mg/dL 70-110 GLUCOSE BEDSIDE [id number] 16:28:00 Test Item Value Reference Range Comments GLUCOSE BEDSIDE TESTING (test code=GLUBED) 84 mg/dL 70-110 GLUCOSE BEDSIDE [id number] 11:30:00 Test Item Value Reference Range Comments GLUCOSE BEDSIDE TESTING (test code=GLUBED) 106 mg/dL 70-110 GLUCOSE BEDSIDE [id number] 07:38:00 Test Item Value Reference Range Comments GLUCOSE BEDSIDE TESTING (test code=GLUBED) 120 mg/dL 70-110 CBC W/AUTO [id number] 06:24:00 Test Item Value Reference Range Comments [...] (test code=MDIFF) NO DIFF/SCN CRITERIA GLUCOSE BEDSIDE [id number] 21:45:00 Test Item Value Reference Range Comments GLUCOSE BEDSIDE TESTING (test code=GLUBED) 135 mg/dL 70-110 BASIC METABOLIC [id number] 18:20:00 Test Item Value Reference Range Comments [...] 0.8-1.3 CALCIUM (test code=CA) 8.1 MG/DL 8.5-10.1 [id number] 18:20:00 Test Item Value Reference Range Comments PHOSPHOROUS (test code=PHOS) 3.2 MG/DL 2.5-4.9 [id number] 18:20:00 Test Item Value Reference Range Comments MAGNESIUM (test code=MAG) 1.7 MG/DL 1.8-2.4 GLUCOSE BEDSIDE [id number] 16:54:00 Test Item Value Reference Range Comments GLUCOSE BEDSIDE TESTING (test code=GLUBED) 160 mg/dL 70-110 GLUCOSE BEDSIDE [id number] 14:29:00 Test Item Value Reference Range Comments GLUCOSE BEDSIDE TESTING (test code=GLUBED) 136 mg/dL 70-110 GLUCOSE BEDSIDE [id number] 07:31:00 Test Item Value Reference Range Comments GLUCOSE BEDSIDE TESTING (test code=GLUBED) 125 mg/dL 70-110
== END 2019-09-16 19:37 | disposition home or self-care (01) ==
LOC: ER 13:17
DX: R42 Dizziness and giddiness (principal); I10 Essential (primary) hypertension; Z85.038 Personal history of other malignant neoplasm of large intestine
CPT/HCPCS: 93005; 85025; 80048; 36415; 85610; 82947; 80164; 83605; 85730; 84145; 70450; 71045; 70553; 70544; 70549; 99284; A9577; J8597

== ENCOUNTER 2020-01-04 11:27 | Emergency (ER) | payer OTHER ==
--- OUTSIDE RECORDS SUMMARY | 2020-01-04 11:29 | XMS REPORT ---
:1960 [facility] Address [address] [place] [address] Care Team Providers Name Role Phone Unavailable [...] BEARD : 1960 Age/S: 58 / M [address] Unit #: [id number] Loc: [place] [address] Phys: Kevin Rollins MD Acct: [id number] Dis Date: Status: REG [facility] PHONE #: [phone] Exam Date: 01/14/2019 0910 FAX #: Reason: PORT A CATH PLACEMENT EXAMS: CPT: [id number] XR FLUOROSCOPY 0-60 MIN 86743 Fluoro Time: 8 SEC DAP (Gy m2): [...] BEARD : 1960 Age/S: 58 / M [address] Unit #: [id number] Loc: [place] [address] Phys: Kevin Rollins MD Acct: [id number] Dis Date: Status: REG [place] PHONE #: [phone] Exam Date: 01/14/2019 0910 FAX #: Reason: PORT A CATH PLACEMENT EXAMS: CPT: [id number] XR FLUOROSCOPY 0-60 MIN 49245 Fluoro Time: 8 SEC DAP (Gy m2): Air Kerma (mGy): <Continued> Technologist: Sandy Lucero, RT(R)(CT); Mary Carbajal RT(R) [facility] [place] [place] Date/Time: 01/14/2019 (1027) [email or web address] Orig Print D/T: S: 01/14/2019 (1030) PAGE 2 Signed Report GLUCOSE BEDSIDE TESTING 2019-01-14 10:17:00 Test Item Value Reference Range Comments GLUCOSE BEDSIDE TESTING (test code=GLUBED) 140 mg/dL 70-110 - XR CHEST 1 [id number] 10:04:00 Name: RACHAEL BEARD : 1960 Age/S: 58 / M [address] Unit #: [id number] Loc: [place] [address] Phys: Kevin Rollins MD Acct: [id number] Dis Date: Status: REG [place] PHONE #: [phone] Exam Date: 01/14/2019 0955 FAX #: Reason: port placement EXAMS: CPT: [id number] XR CHEST 1 V 19504 Fluoro Time: DAP (Gy m2): Air Kerma [...] PAGE 1 Signed Report Name: RACHAEL BEARD [facility] : 1960 Age/S: 58 / M [address] Unit #: [id number] Loc: [place] [address] Phys: Kevin Rollins MD Acct: [id number] Dis Date: Status: [facility] PHONE #: [phone] ExamDate: 01/14/2019 0955 FAX #: Reason: port placement EXAMS: CPT: [id number] XR CHEST 1 V 80978 Fluoro Time: DAP (Gy m2): Air Kerma (mGy): < Continued> Technologist: Rachael Izquierdo, RT(R)(CT); Verenice Carbajal RT(R) [facility] Date/Time: 01/14/2019 (1004) [email or web address] Orig Print D/T: S: 01/14/2019 (1007) PAGE 2 Signed ReportGLUCOSE BEDSIDE [id number] 07: 20:00 Test Item Value Reference Range Comments GLUCOSE BEDSIDE TESTING (test code=GLUBED) 137 mg/dL 70-110 [id number] 16:52:00 RUN DATE: 01/06/19 [facility] PAGE 1 RUN TIME: 165 Specimen Inquiry RUN USER: INTERFACE PATIENT: RACHAEL BEARD LOC: [place] U #: [id number] AGE/SX: 58/M ROOM: [facility] RE12/31/18[facility] DR: Kevin Rollins MD : 64 BED: 1 DIS: 01/02/19 STATUS: DIS IN TLOC: SPEC #: [id number] RECD: 01/01/19 STATUS: MARCIA REQ #: [id number] ONELIA: 12/31/[address] [facility] [address]: Kevin Rollins MD ENTERED: 01/01/19 SP TYPE: SURG OTHR DR: Shamar Abreu ORDERED: SURG PATH LVL 6 COPIES TO: Shamar Abreu [address] [place] [address] [place] [id number] [address] HISTOLOGY: TISSUE ID BLK PCS CESAR LEV PROCEDURE DISPOSITION ____ ___ ___ ___ __ SIGMOID COLON A 1-15 1 PROCEDURES: SURG PATH LVL 6 (01/01/19-915) TISSUES: A. SIGMOID COLON - SIGMOID COLON AND ANASTOMATIC COLON RINGS CLINICAL HISTORY COLON RECTAL CANCER -C18.9 CPT CODES CPT CODE(S): 59177 , , , , , , FINAL DIAGNOSIS Colon, sigmoid, anastomotic donuts, partial colectomy: MODERATELY DIFFERENTIATED COLORECTAL ADENOCARCINOMA, 6 CM GREATEST DIMENSION 7 LYMPH NODES POSITIVE FOR METASTATIC CARCINOMA (7/10) MARGINS NEGATIVE CONTINUED ON NEXT PAGE RUN DATE: 01/06/19 [facility] *LIVE* PAGE 2 RUN TIME: 1652 Specimen Inquiry RUN USER: INTERFACE SPEC #: [id number] PATIENT: RACHAEL BEARD #[id number] (Continued) GROSS DESCRIPTION Sigmoid colon and anastomotic [...] A3 Entire circumference of distal margin A4-A5 Postal Sorting Officer sections of the lesion A6 Tumor with normal mucosa of proximal margin A7 Tumor with normal mucosa of closest distal margin A8 Normal mucosa A9 Postal Sorting Officer sections of largest anastomotic ring A10 Postal Sorting Officer sections of second anastomotic ring A11 Postal Sorting Officer sections of mesentery A12-A14 Postal Sorting Officer sections of mesentery with possible matted lymph nodes A15-A20 Entire lymph nodes, one lymph node each A21 Two lymph nodes A22 Two lymph nodes, serially [id number] Three lymph nodes Grossing performed at [facility], [facility], [address], [place], [place] [address]. Internal Communications Writer: Hany Haji M.D. MICROSCOPIC DESCRIPTION Sigmoid colon [...] CONTINUED ON NEXT PAGE RUN DATE: 01/06/19 [facility] *LIVE* PAGE 3 RUNTIME: 455 Specimen Inquiry RUN USER: INTERFACE SPEC #: [id number] PATIENT: RACHAEL BEARD #[id number] (Continued) MICROSCOPIC DESCRIPTION (Continued) demonstrates moderately differentiated [...] 01/06/19 1652 END OF REPORT GLUCOSE BEDSIDE [id number] 17:20:00 Test Item Value Reference Range Comments GLUCOSE BEDSIDE TESTING (test code=GLUBED) 103 mg/dL 70-110 GLUCOSE BEDSIDE [id number] 11:28:00 Test Item Value Reference Range Comments GLUCOSE BEDSIDE TESTING (test code=GLUBED) 87 mg/dL 70-110 GLUCOSE BEDSIDE [id number] 07:23:00 Test Item Value Reference Range Comments GLUCOSE BEDSIDE TESTING (test code=GLUBED) 108 mg/dL 70-110 GLUCOSE BEDSIDE [id number] 20:29:00 Test Item Value Reference Range Comments GLUCOSE BEDSIDE TESTING (test code=GLUBED) 99 mg/dL 70-110 GLUCOSE BEDSIDE [id number] 16:28:00 Test Item Value Reference Range Comments GLUCOSE BEDSIDE TESTING (test code=GLUBED) 84 mg/dL 70-110 GLUCOSE BEDSIDE [id number] 11:30:00 Test Item Value Reference Range Comments GLUCOSE BEDSIDE TESTING (test code=GLUBED) 106 mg/dL 70-110 GLUCOSE BEDSIDE [id number] 07:38:00 Test Item Value Reference Range Comments GLUCOSE BEDSIDE TESTING (test code=GLUBED) 120 mg/dL 70-110 CBC W/AUTO [id number] 06:24:00 Test Item Value Reference Range Comments [...] (test code=MDIFF) NO DIFF/SCN CRITERIA GLUCOSE BEDSIDE [id number] 21:45:00 Test Item Value Reference Range Comments GLUCOSE BEDSIDE TESTING (test code=GLUBED) 135 mg/dL 70-110 BASIC METABOLIC [id number] 18:20:00 Test Item Value Reference Range Comments [...] 0.8-1.3 CALCIUM (test code=CA) 8.1 MG/DL 8.5-10.1 [id number] 18:20:00 Test Item Value Reference Range Comments PHOSPHOROUS (test code=PHOS) 3.2 MG/DL 2.5-4.9 [id number] 18:20:00 Test Item Value Reference Range Comments MAGNESIUM (test code=MAG) 1.7 MG/DL 1.8-2.4 GLUCOSE BEDSIDE [id number] 16:54:00 Test Item Value Reference Range Comments GLUCOSE BEDSIDE TESTING (test code=GLUBED) 160 mg/dL 70-110 GLUCOSE BEDSIDE [id number] 14:29:00 Test Item Value Reference Range Comments GLUCOSE BEDSIDE TESTING (test code=GLUBED) 136 mg/dL 70-110 GLUCOSE BEDSIDE [id number] 07:31:00 Test Item Value Reference Range Comments GLUCOSE BEDSIDE TESTING (test code=GLUBED) 125 mg/dL 70-110
[2020-01-04 13:01] LABS: Basophils % 0.9 % (0-1.3); Hematocrit 39.2 % (39.6-49.0); Lymphocytes % 32.4 % (15.3-44.8); MPV 10.2 fL (7.6-11.3)
[2020-01-04 13:02] LABS: Protime INR 1.05
--- NOTE | 2020-01-04 13:05 | RAD REPORT ---
EXAM DESCRIPTION: RAD - Chest Single View - 01/04/2020 12:59 pm CLINICAL HISTORY: CHEST PAIN COMPARISON: Chest Single View dated 09/16/2019 TECHNIQUE: AP portable chest image was obtained 01/04/2020 12:59 pm . FINDINGS: Lungs are clear. Heart and vasculature are normal. No failure or volume overload findings. No measurable pleural effusion and no pneumothorax. No acute bony abnormality seen. No acute aortic findings suspected. Right-sided Port-A-Cath unchanged from comparison. IMPRESSION: No acute cardiopulmonary process.
[2020-01-04 13:19] LABS: ALT/SGPT 55 U/L (12-78); AST/SGOT 45 U/L (15-37); Alkaline Phosphatase 134 U/L (45-117); BUN Blood Urea Nitrogen 11 mg/dL (7-18); Bicarbonate 24 mmol/L (21-32); Bilirubin Direct 0.1 mg/dL (0-0.2); Bilirubin Total 0.3 mg/dL (0.2-1.0); Glucose Level 92 mg/dL (74-106); Magnesium 2.1 mg/dL (1.8-2.4); NT PRO-BNP 15 pg/mL (<125); Protein, Total 8.2 g/dL (6.4-8.2); Sodium Level 138 mmol/L (136-145); Troponin (Emerg Dept Use Only) < 0.02 ng/mL (0.0-0.045)
[2020-01-04] MEDS ORDERED: ACETAMINOPHEN 325 MG TABLET ONE (14:36)
--- NOTE | 2020-01-04 16:07 | ER ---
Nurse's Notes [facility] Name: Taiwo Chery Age: 59 yrs Sex: Male : 1960 Arrival Date: 01/04/2020 Time: 11:29 Bed 5 Private MD: DIEGO NELSON Diagnosis: Chest pain, unspecified Presentation: 01/04 11:34 Presenting complaint: Bilateral leg "heaviness" and dizziness x 5 days, sharp left hb sided chest pain and SOB today. Denies cough/fever. Transition of care: patient was not received from another setting of care. Onset of symptoms was December 30, 2019. Risk Assessment: Do you want to hurt yourself or someone else? Patient reports no desire to harm self or others. Care prior to arrival: None. 11:34 Method Of Arrival: Ambulatory hb 11:34 Acuity: LEONARD 3 hb 11:55 Initial Sepsis Screen: Does the patient meet any 2 criteria? No. Patient's initial jl7 sepsis screen is negative. Does the patient have a suspected source of infection? No. Patient's initial sepsis screen is negative. Historical: - Allergies: 11:36 NKDA; hb - PMHx: 11:36 Anxiety; colon cancer; Diabetes - NIDDM; Headaches; Hyperlipidemia; Hypertension; TIA; hb - PSHx: 11:36 colon surgery; hb - Immunization history:: Adult Immunizations up to date. - Coronavirus screen:: The patient has NOT traveled to [place] in the past 14 days. The patient has NOT had contact with known/suspected case of Coronavirus? Proceed with normal triage procedures. - Social history:: Smoking status: Patient denies any tobacco usage or history of. - Ebola Screening: : No symptoms or risks identified at this time. Screenin:06 Abuse screen: Denies threats or abuse. Denies injuries from another. Nutritional jl7 screening: No deficits noted. Tuberculosis screening: No symptoms or risk factors identified. 13:00 Fall Risk IV access (20 points). Total Brooks Fall Scale indicates No Risk (0-24 pts). jl7 Assessment: 12:06 General: Appears in no apparent distress. uncomfortable, Behavior is cooperative, jl7 anxious. Pain: Complains of pain in mid-sternal area Pain does not radiate. Pain currently is 6 out of 10 on a pain scale. Quality of pain is described as sharp, throbbing, Pain began 4 hours ago. Is continuous. Neuro: Level of Consciousness is awake, alert, obeys commands, Oriented to person, place, time, situation. Cardiovascular: Heart tones S1 S2 present Patient's skin is warm and dry. Respiratory: Airway is patent Respiratory effort is even, unlabored, Respiratory pattern is regular, symmetrical, Breath sounds are clear bilaterally. GI: No signs and/or symptoms were reported involving the gastrointestinal system. Derm: Skin is pink, warm \\T\\ dry. Musculoskeletal: Parent/caregiver report the patient having heaviness in bilateral lower extremities below the knees. 12:50 Reassessment: Just prior to inserting pt's IV, pt appeared to hold his breath, eyes jl7 watered and arms were stiff, vitals remained WNL; states "He's having an anxiety attack." Coached pt to take deep breaths, pt appeared to relax, IV placed at this time. 14:30 Reassessment: Patient appears in no apparent distress at this time. Patient and/or jl7 family updated on plan of care and expected duration. Pain level reassessed. Patient is alert, oriented x 3, equal unlabored respirations, skin warm/dry/pink. Pt c/o PANCHAL, requesting medications, ERD notified, see MAR for orders. 15:30 Reassessment: Patient appears in no apparent distress at this time. Patient and/or jl7 family updated on plan of care and expected duration. Pain level reassessed. Patient is alert, oriented x 3, equal unlabored respirations, skin warm/dry/pink. PANCHAL decreaced. Vital Signs: 11:35 BP 131 / 85; Pulse 61; Resp 16; Temp 97.8; Pulse Ox 100% ; Weight 109.77 kg; Height 5 hb ft. 4 in. (162.56 cm); Pain 6/10; 13:00 BP 118 / 57; Pulse 63; Resp 17 S; Pulse Ox 97% on R/A; jl7 14:38 BP 99 / 57; Pulse 66; Resp 17 S; Pulse Ox 100% on R/A; Pain 6/10; jl7 14:57 BP 105 / 57; Pulse 63; Resp 16 S; Pulse Ox 99% on R/A; jl7 16:00 BP 110 / 61; Pulse 65; Resp 16 S; Pulse Ox 100% on R/A; jl7 11:35 Body Mass Index 41.54 (109.77 kg, 162.56 cm) hb ED Course: 11:29 Patient arrived in ED. mr 11:29 DIEGO NELSON is Private Physician. mr 11:33 Errol Montez MD is Attending Physician. kdr 11:35 Triage completed. hb 11:36 Arm band placed on. hb 11:55 Evie Bay, RN is Primary Nurse. jl7 12:06 Patient has correct armband on for positive identification. Placed in gown. Bed in low jl7 position. Call light in reach. Side rails up X 1. quality assurance monitor body on. Pulse ox on. NIBP on. 12:06 Patient maintains SpO2 saturation greater than 95% on room air. jl7 12:31 EKG done, by automotive refinish technician. reviewed by Errol Montez MD. at1 12:51 Initial lab(s) drawn, by me, sent to lab. Inserted saline lock: 20 gauge in left jl7 antecubital area, using aseptic technique. Blood collected. 12:59 XRAY Chest (1 view) In Process Unspecified. EDMS 14:37 Repeat lab(s) drawn. by me, sent to lab. jl7 16:06 DIEGO NELSON is Referral Physician. kdr 16:25 No provider procedures requiring assistance completed. IV discontinued, intact, jl7 bleeding controlled, No redness/swelling at site. Pressure dressing applied. Administered Medications: 14:48 Drug: Tylenol 650 mg Route: PO; jl7 15:30 Follow up: Response: No adverse reaction; Pain is decreased jl7 Outcome: 16:07 Discharge ordered by . kdr 16:25 Discharged to home ambulatory. jl7 16:25 Condition: stable 16:25 Discharge instructions given to patient, family, Instructed on discharge instructions, follow up and referral plans. medication usage, Demonstrated understanding of instructions, follow-up care, medications, Prescriptions given X 1. 16:26 Patient left the ED. jl7 Signatures: Dispatcher [employer] EDMS Errol Montez MD MD [facility] Rosa Gimenez Meaghan Brink, imaging center manager EKG Tat1 Sommer Zelaya, RN RN Evie Bay, LELE RN jl7
--- NOTE | 2020-01-04 16:07 | EDPHYS ---
Physician Documentation [facility] Name: Taiwo Chery Age: 59 yrs Sex: Male : 1960 Arrival Date: 01/04/2020 Time: 11:29 Bed 5 Private MD: DIEGO NELSON ED Physician Errol Montez HPI: 01/04 19:09 This 59 yrs old Male presents to ER via Ambulatory with complaints of Chest kdr Pain, Leg Pain. 19:09 Onset: gradually. kdr 19:09 The patient or guardian reports chest pain that is located primarily in the anterior kdr chest wall, left. Historical: - Allergies: 11:36 NKDA; hb - PMHx: 11:36 Anxiety; colon cancer; Diabetes - NIDDM; Headaches; Hyperlipidemia; Hypertension; TIA; hb - PSHx: 11:36 colon surgery; hb - Immunization history:: Adult Immunizations up to date. - Coronavirus screen:: The patient has NOT traveled to [place] in the past 14 days. The patient has NOT had contact with known/suspected case of Coronavirus? Proceed with normal triage procedures. - Social history:: Smoking status: Patient denies any tobacco usage or history of. - Ebola Screening: : No symptoms or risks identified at this time. ROS: 19:09 Constitutional: Negative for fever, chills, and weight loss, Eyes: Negative for injury, kdr pain, redness, and discharge, ENT: Negative for injury, pain, and discharge, Neck: Negative for injury, pain, and swelling, Respiratory: Negative for shortness of breath, cough, wheezing, and pleuritic chest pain, Abdomen/GI: Negative for abdominal pain, nausea, vomiting, diarrhea, and constipation, Back: Negative for injury and pain, : Negative for injury, bleeding, discharge, and swelling, MS/Extremity: Negative for injury and deformity, Skin: Negative for injury, rash, and discoloration, Psych: Negative for depression, anxiety, suicide ideation, homicidal ideation, and hallucinations, Allergy/Immunology: Negative for hives, rash, and allergies, Endocrine: Negative for neck swelling, polydipsia, polyuria, polyphagia, and marked weight changes, Hematologic/Lymphatic: Negative for swollen nodes, abnormal bleeding, and unusual bruising. 19:09 Cardiovascular: Positive for chest pain, Negative for edema, orthopnea, palpitations, paroxysmal nocturnal dyspnea. 19:09 Neuro: Positive for Bilateral lower extremity weakness. kdr Exam: 19:09 Constitutional: This is a well developed, well nourished patient who is awake, alert, kdr and in no acute distress. Head/Face: Normocephalic, atraumatic. Eyes: Pupils equal round and reactive to light, extra-ocular motions intact. Lids and lashes normal. Conjunctiva and sclera are non-icteric and not injected. Cornea within normal limits. Periorbital areas with no swelling, redness, or edema. Neck: Trachea midline, no thyromegaly or masses palpated, and no cervical lymphadenopathy. Supple, full range of motion without nuchal rigidity, or vertebral point tenderness. No Meningismus. Chest/axilla: Normal chest wall appearance and motion. Nontender with no deformity. No lesions are appreciated. Cardiovascular: Regular rate and rhythm with a normal S1 and S2. No gallops, murmurs, or rubs. Normal PMI, no JVD. No pulse deficits. Respiratory: Lungs have equal breath sounds bilaterally, clear to auscultation and percussion. No rales, rhonchi or wheezes noted. No increased work of breathing, no retractions or nasal flaring. Abdomen/GI: Soft, non-tender, with normal bowel sounds. No distension or tympany. No guarding or rebound. No evidence of tenderness throughout. Back: No spinal tenderness. No costovertebral tenderness. Full range of motion. Skin: Warm, dry with normal turgor. Normal color with no rashes, no lesions, and no evidence of cellulitis. MS/ Extremity: Pulses equal, no cyanosis. Neurovascular intact. Full, normal range of motion. Neuro: Awake and alert, GCS 15, oriented to person, place, time, and situation. Cranial nerves II-XII grossly intact. Motor strength 5/5 in all extremities. Sensory grossly intact. Cerebellar exam normal. Normal gait. Psych: Awake, alert, with orientation to person, place and time. Behavior, mood, and affect are within normal limits. Vital Signs: 11:35 BP 131 / 85; Pulse 61; Resp 16; Temp 97.8; Pulse Ox 100% ; Weight 109.77 kg; Height 5 hb ft. 4 in. (162.56 cm); Pain 6/10; 13:00 BP 118 / 57; Pulse 63; Resp 17 S; Pulse Ox 97% on R/A; jl7 14:38 BP 99 / 57; Pulse 66; Resp 17 S; Pulse Ox 100% on R/A; Pain 6/10; jl7 14:57 BP 105 / 57; Pulse 63; Resp 16 S; Pulse Ox 99% on R/A; jl7 16:00 BP 110 / 61; Pulse 65; Resp 16 S; Pulse Ox 100% on R/A; jl7 11:35 Body Mass Index 41.54 (109.77 kg, 162.56 cm) hb MDM: 14:17 ED course: D/w Dr. Dhara Jasso pt has had recent MRI and have found no etiology for his kdr lower extremity weakness. 16:07 Patient medically screened. kdr 19:09 Data reviewed: vital signs, nurses notes. ED course: All of the problems that the kdr patient presented with have been with him intermittently for many months if not years. The patient has seen multiple specialists without definitive significant findings. 01/04 12:20 Order name: Basic Metabolic Panel; Complete Time: 14:05 [facility] 01/04 12:20 Order name: CBC with Diff; Complete Time: 14: [facility] 01/04 12:20 Order name: LFT's; Complete Time: 14:05 [facility] 01/04 12:20 Order name: Magnesium; Complete Time: 14: [facility] 01/04 12:20 Order name: NT PRO-BNP; Complete Time: 14: [facility] 01/04 12:20 Order name: PT-INR; Complete Time: 14:05 [facility] 01/04 12:20 Order name: Troponin (emerg Dept Use Only); Complete Time: 14:05 [facility] 01/04 12:20 Order name: XRAY Chest (1 view); Complete Time: 14:05 [facility] 01/04 12:20 Order name: EKG; Complete Time: 12:21 [facility] 01/04 12:20 Order name: Cardiac monitoring; Complete Time: 12:23 [facility] 01/04 12:20 Order name: EKG - Nurse/Tech; Complete Time: 12:51 [facility] 01/04 12:20 Order name: IV Saline Lock; Complete Time: 12:51 [facility] 01/04 14:17 Order name: Troponin (emerg Dept Use Only): Draw two hours after initial draw; Complete kdr Time: 16:06 01/04 12:20 Order name: Labs collected and sent; Complete Time: 12:51 [facility] 01/04 12:20 Order name: O2 Per Protocol; Complete Time: 12:23 [facility] 01/04 12:20 Order name: O2 Sat Monitoring; Complete Time: 12: [facility] Administered Medications: 14:48 Drug: Tylenol 650 mg Route: PO; 7 15:30 Follow up: Response: No adverse reaction; Pain is decreased jl7 Disposition: 01/04/20 16:07 Discharged to Home. Impression: Chest pain, unspecified. - Condition is Stable. - Discharge Instructions: Nonspecific Chest Pain, Xbbn-cl-Raxg, Weakness, Nsub-ok-Jvtg. - Prescriptions for Tramadol 50 mg Oral Tablet - take 1 tablet by ORAL route every 8 hours as needed; 12 tablet. - Medication Reconciliation Form, Thank You Letter, Family Work Release form. - Follow up: DIEGO NELSON; When: 2 - 3 days; Reason: If symptoms return, Further diagnostic work-up, Recheck today's complaints, Continuance of care, Re-evaluation by your physician. - Problem is new. - Symptoms have improved. Signatures: Dispatcher [employer] EDMS Errol Montez MD MD kdr Sommer Zelaya RN RN Evie Bay RN RN jl7 Corrections: (The following items were deleted from the chart) 16:26 16:07 01/04/2020 16:07 Discharged to Home. Impression: Chest pain, unspecified. jl7 Condition is Stable. Forms are Medication Reconciliation Form, Thank You Letter, Antibiotic Education, Prescription Opioid Use. Follow up: DIEGO NELSON; When: 2 - 3 days; Reason: If symptoms return, Further diagnostic work-up, Recheck today's complaints, Continuance of care, Re-evaluation by your physician. Problem is new. Symptoms have improved. kdr 19:10 19:09 The patient or guardian reports chest pain that is located primarily in the kdr anterior chest wall, right, kdr
[2020-01-04 16:33] VITALS: TEMP 97.8
[2020-01-04 16:38] VITALS: BP 110/61; O2SAT 100
--- NOTE | 2020-01-05 08:20 | EKG ---
Test Date: 2020-01-04 Test Time: 12:28:10 Court Messenger: KAY MEASUREMENT RESULTS: Intervals: Rate: 62 MD: 168 QRSD: 86 QT: 428 QTc: 434 Kittrell: P: 17 MD: 168 QRS: 21 T: 24 INTERPRETIVE STATEMENTS: Normal sinus rhythm Normal ECG Compared to ECG 09/16/2019 15:54:34 No significant changes Electronically Signed On 01-05-20 08:19:49 [employer]Y CELL SEALER by Patel Gresham
== END 2020-01-04 16:26 | disposition home or self-care (01) ==
LOC: ER 11:27
DX: R07.9 Chest pain, unspecified (principal); I10 Essential (primary) hypertension; Z85.038 Personal history of other malignant neoplasm of large intestine
CPT/HCPCS: 36415; 71045; 80048; 80076; 83735; 83880; 84484; 85025; 85610; 93005; 99285

== ENCOUNTER 2020-08-08 13:43 | Emergency (ER) | payer OTHER, SELFPAY ==
--- OUTSIDE RECORDS SUMMARY | 2020-08-08 13:45 | XMS REPORT | Continuity of Care Document ---
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, Neuro systemic arterial (disorder) Kidney stone Active Problem 01/16/2020 Mische r (disorder) Neuro Liver function Active Problem 01/16/2020 Misc her tests abnormal Neuro (finding) Malignant tumor Active Problem 01/16/2020 Mis rebecca of colon Neuro (disorder) Migraine Active Problem 01/16/2020 Mischer (disorder) Neuro Medications Medication Details Route Status Patient Ordering Order Source Instructions Provider Date 24 HR 37.5 mg = 1 Active [facility] venlafaxine cap, PO, 019 Neuro 37.5 MG Daily, # 30 Extended cap, 3 Release Refill(s), Capsule Pharmacy: [Effexor] [facility] 808 Divalproex 500 mg = 1 Active [facility] Sodium 500 MG tab, PO, 019 Neuro Enteric Coated BID, # 60 Tablet tab, 3 Refill(s), Pharmacy: [facility] 808 Divalproex 0 Refill(s) Inactive [facility] Sodium 500 MG 019 Neuro Enteric Coated Tablet Metoprolol 0 Refill(s) Active [facility] Tartrate 50 mg 019 Neuro oral tablet simvastatin 40 0 Refill(s) Active Misch er mg oral tablet 019 Neuro Metformin See Active [facility] Instruction 019 Neuro s, 850 mg PO bid, 0 Refill(s) Allergies, Adverse Reactions, Alerts Substance Category Reaction Severity Reaction Status Date Comments S ource type Reported No Known Assertion Drug Misch er Medication allergy Neuro Allergies Immunizations No Data Provided for This Section Results No Data Provided for This Section Pathology Reports No Data Provided for This Section Diagnostic Reports No Data Provided for This Section Consultation Notes No Data Provided for This Section Discharge Summaries No Data Provided for This Section History and Physicals No Data Provided for This Section Vital Signs Vital Sign Value Date Comments Source Height 162.56 cm 10/29/2019 [facility] Systolic (mm Hg) 129 10/29/2019 [facility] José Miguel ro Diastolic (mm Hg) 77 10/29/2019 [facility] Ne uro Heart Rate 73 10/29/2019 [facility] Respitory Rate 16 10/29/2019 [facility] Weight 109.545 10/29/2019 [facility] BMI Calculated 41.45 10/29/2019 [facility] Neuro Systolic (mm Hg) 118 09/15/2019 [facility] José Miguel ro Diastolic (mm Hg) 79 09/15/2019 [facility] Ne uro Heart Rate 68 09/15/2019 [facility] Neuro Respitory Rate 16 09/15/2019 [facility] Height 160.02 cm 09/15/2019 [facility] Weight 108.636 09/15/2019 [facility] BMI Calculated 42.43 09/15/2019 [facility] Neuro Systolic (mm Hg) 131 08/18/2019 [facility] José Miguel ro Diastolic (mm Hg) 80 08/18/2019 [facility] Ne uro [facility] 73 [facility] Height 162.56 cm [facility] Weight 106.818 08/18/2019 [facility] Neuro BMI Calculated 40.42 08/18/2019 [facility] Encounters Location Location Encounter Encounter Reason Attending ADM OH Stat Source Details Type Number For Provider Date Date Visit Outpatient [id number] Brent 08/18 Active [facility] [place] [facility]NA Outpatient [id number] Brent 08/18 08/19 [facility] [place] Outpatient [id number] Brent 09/15 Active [facility] [place] MNA Outpatient [id number] Brent 09/15 09/16 [facility] [place] Outpatient [id number] Brent 10/29 Active [facility] [place] MNA Outpatient [id number] Brent 10/29 10/30 [facility] [place] Outpatient [id number] Brent 01/13 Active [facility] [place] MNA Ambulatory [id number] Brent 01/13 01/13 [facility] Pre[facility] [place] /2019 Neuro [place] Procedures No Data Provided for This Section Assessment and Plan No Data Provided for This Section Plan of Care No Data Provided for This Section Social History Social History Date Source Social History TypeResponse 10/29/2019 [facility] Neur o Smoking Status Unknown if ever smoked; Exposure to [employer] account [employer] Smoke None; Cigarette Smoking Last 365 Days Unable to obtain; Reg Smoking Cessation Counseling No entered on: 10/29/19 Family History No Data Provided for This Section Advance Directives No Data Provided for This Section Functional Status No Data Provided for This Section
--- OUTSIDE RECORDS SUMMARY | 2020-08-08 13:46 | XMS REPORT | Continuity of Care Document ---
:1960 Author Organization [facility] t Address [address] [place] [address] Care Team Providers Name Role Phone Kiran Medina Attending Clinician Doctor Unassigned, Name Attending Clinician Unavailable Chandler HENSON Attending Clinician Catarino Jules Attending Clinician Payers Payer Name Policy Type Policy Number Effective Date Expiration Date S ource Problems Condition Condition Condition Status Onset Resolution Last Treating Co mments Source Name Details Category Date Date Treatment Clinician Date Hypertensi Problem Resolve 2020-01-16 Memoria ve d 21:57:31 l disorder, [place] systemic Hypertensi arterial ve (disorder) disorder, systemic arterial (disorder) Resolved Problem 01/16/2020 [facility] Diabetes Problem Active 2020-01-16 Mem oria mellitus 21:57:31 l (disorder) Diabetes He rmann mellitus (disorder) Active Problem 01/16/2020 [facility] Hyperlipid Problem Active 2020-01-16 M emoria emia 21:57:31 l (disorder) Silvano n Hyperlipid emia (disorder) Active Problem 01/16/2020 [facility] Kidney Problem Active 2020-01-16 Memor ia stone 21:57:31 l (disorder) Kidney Herm pancho stone (disorder) Active Problem 01/16/2020 [facility] Liver Problem Active 2020-01-16 Memor ia function 21:57:31 l tests Liver [place] abnormal function (finding) tests abnormal (finding) Active Problem 01/16/2020 [facility] Malignant Problem Active 2020-01-16 Me moria tumor of 21:57:31 l colon [place] (disorder) Malignant tumor of colon (disorder) Active Problem 01/16/2020 [facility] Migraine Problem Active 2020-01-16 Mem oria (disorder) 21:57:31 l Migraine Silvano n (disorder) Active Problem 01/16/2020 [facility] Allergies, Adverse Reactions, Alerts Allergy Allergy Status Severity Reaction(s) Onset Inactive Treating Comm ents Source Name Type Date Date Clinician No Known DA Active [facility] All[facility]ie 2- [place] s 00:00: d 00 [facility] No Known No Known Active Memori a Medicati Medicati l on on [place] Allergie Allergie s s Medications Ordered Filled Start Stop Current Ordering Indication Dosage Frequency Signature Comments Components Source Medication Medication Date Date Medication? Clinician (SIG) Name Name 24 HR 2018-11 Yes 37.5 mg = Memoria venlafaxine 06 1 cap, PO, l 37.5 MG 20:17: Daily, # Silvano n Extended 00 30 cap, 3 Release Refill(s), Capsule Pharmacy: [Effexor] [facility] 808 Divalproex 2018-11 Yes 500 mg = 1 M emoria Sodium 500 0-09 tab, PO, l MG Enteric 15:57: BID, # 60 He rmann Coated 00 tab, 3 Tablet Refill(s), Pharmacy: [facility] 808 Divalproex 2018-11 No 0 Memoria Sodium 500 0-09 Refill(s) l MG Enteric 15:56: [place] Coated 00 Tablet Metoprolol 2018-11 Yes 0 Memoria Tartrate 50 0-09 Refill(s) l mg oral 15:56: [place] tablet 00 simvastatin 2018-11 Yes 0 Memori a 40 mg oral 0-09 Refill(s) l tablet 15:56: [place] 00 Metformin 2018-11 Yes See Memoria 0-09 Instructio l 15:44: ns, 850 mg [place] 00 PO bid, 0 Refill(s) Vital Signs Vital Name Observation Time Observation Value Comments Source Height 2019-10-29 21:43:00 162.56 cm [facility] Systolic (mm Hg) 2019-10-29 21:43:00 León rial [place] Diastolic (mm Hg) 2019-10-29 21:43:00 Mem orial [place] Heart Rate 2019-10-29 21:43:00 [facility] [place] Respitory Rate 2019-10-29 21:43:00 Memori al [place] Weight 2019-10-29 21:43:00 [facility] [place] BMI Calculated 2019-10-29 21:43:00 Memori al [place] Systolic (mm Hg) 2019-09-15 19:13:00 León rial [place] Diastolic (mm Hg) 2019-09-15 19:13:00 Mem orial [place] Heart Rate 2019-09-15 19:13:00 [facility] [place] Respitory Rate 2019-09-15 19:13:00 Memori al [place] Height 2019-09-15 19:13:00 160.02 cm [facility] [place] Weight 2019-09-15 19:13:00 [facility] [place] BMI Calculated 2019-09-15 19:13:00 Memori al [place] Systolic (mm Hg) 2019-08-18 15:34:00 León rial [place] Diastolic (mm Hg) 2019-08-18 15:34:00 Mem orial [place] Heart Rate 2019-08-18 15:34:00 [facility] [place] Respitory Rate 2019-08-18 15:34:00 Memori al [place] Height 2019-08-18 15:34:00 162.56 cm [facility] [place] Weight 2019-08-18 15:34:00 [facility] [place] BMI Calculated 2019-08-18 15:34:00 Memori al [place] Procedures This patient has no known procedures. Encounters Start End Encounter Admission Attending Care Care Encounter Source Date/Time Date/Time Type Type Clinicians Facility Department ID 2020-06-28 2020-06-28 Emergency Aliya, [facility] [place] [id number] 14:56:00 17:04:00 Keanu Capps [id number] [place] 4.2.7.2.686 [place] [id number] 2020-06-28 2020-06-28 Orders Doctor POE [id number] 00:00:00 00:00:00 Only UnassignedDESTINY 350.1.13.10 [place] [facility] 4.2.7.2.686 [id number] 2020-03-20 2020-03-20 Emergency WHITNEY Arteaga [id number] 18:31:57 20:18:00 Errol Capps 350.1.13.10 [place] 4.2.7.2.686 [place] [id number] 2020-01-14 2020-01-14 Outpatient Miojayce ANA [facility] [id number] 15:30:00 15:30:00 Brent Catarino 2019-10-29 2019-10-29 Outpatient Dhara [facility] [id number] 15:45:00 23:59:59 Brent Catarino 2019-09-15 2019-09-15 Outpatient Dhara [facility] [id number] 13:15:00 23:59:59 Brent Catarino 2019-08-18 2019-08-18 Outpatient Dh[facility] [id number] 10:15:00 23:59:59 Brent 00 [facility] Results Test Description Test Time Test Comments Results Result [facility] e Comments - XR FLUOROSCOPY 2019-01-14 Name: RACHAEL BEARD 0-60 MIN 10:27:00 [facility] : 1960 Age/S: 58 / M [id number] [place] Unit #: [id number] Loc: [place] [address] Phys: Kevin Rollins MD Acct: [id number] Dis Date: Status: [facility] PHONE #: [phone] Exam Date: 01/14/2019 0910 FAX #: Reason: PORT A CATH PLACEMENT EXAMS: CPT: [id number] XR FLUOROSCOPY 0-60 MIN 08813 Fluoro Time: 8 SEC DAP (Gy m2): [...] BEARD : 1960 Age/S: 58 / M [id number] [place] Unit #: [id number] Loc: [place] [address] Phys: Kevin Rollins MD Acct: [id number] Dis Date: Status: REG [facility] PHONE #: [phone] Exam Date: 01/14/2019 0910 FAX #: Reason: PORT A CATH PLACEMENT EXAMS: CPT: [id number] XR FLUOROSCOPY 0-60 MIN 05113 Fluoro Time: 8 SEC DAP (Gy m2): Air Kerma (mGy): <Continued> Technologist: Sandy Lucero, RT(R)(CT); Mary Carbajal RT(R) [facility] Date/Time: 01/14/2019 (1027) [id number] Orig Print D/T: S: 01/14/2019 (1030) PAGE 2 Signed Report GLUCOSE BEDSIDE TESTING 2019-01-14 10:17:00 Test Item Value Reference Range Interpretation Comme nts GLUCOSE BEDSIDE TESTING (test code = GLUBED) 140 mg/dL 70-110 H - XR CHEST 1 [id number] 10:04:00 Name: RACHAEL BEARD : 1960 Age/S: 58 / M [id number] [place] Unit #: [id number] Loc: [place] [address] Phys: Kevin Rollins MD Acct: [id number] Dis Date: Status: REG [facility] PHONE #: [phone] Exam Date: 01/14/2019 0955 FAX #: Reason: port placement EXAMS: CPT: [id number] XR CHEST 1 V 51686 Fluoro Time: DAP (Gy m2): Air Kerma [...] given recent catheter placement is not excluded p articularly given the lack of prior exams to determine whether this is acute after port placement. Consider chest CT with IV contrast. at 1004 Reported and signed by: Gadiel Baker MD CC: Shamar SANDERS; Kevin Rollins MD PAGE 1 Signed Report Name: RACHAEL BEARDland : 1960 Age/S: 58 / M [id number] [address] [place] Unit #: [id number] Loc: [place] [address] Phys: Kevin Rollins MD Acct: [id number] Dis Date: Status: REG [facility] PHONE #: [phone] ExamDate: 01/14/2019 0955 FAX #: Reason: port placement EXAMS: CPT: [id number] XR CHEST 1 V 12555 Fluoro Time: DAP (Gy m2): Air Kerma (mGy): <Continued> Technologist: Rachael Izquierdo, RT(R)(CT); Verenice Carbajal RT(R) [facility] Date/Time: 01/14/2019 (1004) [email or web address] Orig Print D/T: S: 01/14/2019 (1007) PAGE 2 Signed Report GLUCOSE BEDSIDE [id number] 07:20:00 Test Item Value Reference Range Interpretation Comments GLUCOSE BEDSIDE TESTING (test code 137 mg/dL 70-110 H = GLUBED) [id number] 16:52:00 RUN DATE: 01/06/19 [facility] [place] - LAB *LIVE* PAGE 1 RUN TIME: 1651 Specimen Inquiry RUN USER: INTERFACE PATIENT: RACHAEL BEARD LOC: [place] U #: [id number] AGE/SX: 58/M ROOM: [facility] RE12/31/18[facility] DR: Kevin Rollins MD : 64 BED: 1 DIS: 01/02/19 STATUS: DIS IN TLOC: SPEC #: [id number] RECD: 01/01/19 STATUS: MARCIA LEE #: [id number] ONELIA: 12/31/[address] [facility] [address]: Kevin Rollins MD ENTERED: 01/01/19 SP TYPE: SURG OTHR DR: Shamar Abreu ORDERED: SURG PATH LVL 6 COPIES TO: Shamar Abreu [address] [place], [place] [id number] [place] [address] [id number] HISTOLOGY: TISSUE ID BLK PCS CESAR LEV PROCEDURE DISPOSITION ____ ___ ___ ___ SIGMOID COLON A 1-15 1 PROCEDURES: SURG PATH LVL 6 (01/01/19-915) TISSUES: A. SIGMOID COLON - SIGMOID COLON AND ANASTOMATIC COLON RINGS CLINICAL HISTORY COLON RECTAL CANCER -C18.9 CPT CODES CPT CODE(S): 53407 , , , , , , FINAL DIAGNOSIS Colon, sigmoid, anastomotic donuts, partial colectomy: MODERATELY DIFFERENTIATED COLORECTAL ADENOCARCINOMA, 6 CM GREATEST DIMENSION 7 LYMPH NODES POSITIVE FOR METASTATIC CARCINOMA (7/10) MARGINS NEGATIVE CONTINUED ON NEXT PAGE RUN DATE: 01/06/19 [facility] [place] - LAB *LIVE* PAGE 2 RUN TIME: 1652 Specimen Inquiry RUN USER: INTERFACE SPEC #: [id number] PATIENT: BEARDRACHAEL #[id number] (Continued) GROSS DESCRIPTION Sigmoid colon and anastomotic [...] A3 Entire circumference of distal margin A4-A5 [place] sections of the lesion A6 Tumor with normal mucosa of proximal margin A7 Tumor with normal mucosa of closest distal margin A8 Normal mucosa A9 [place] sections of largest anastomotic ring A10 [place] sections of second anastomotic ring A11 [place] sections of mesentery A12-A14 [place] sections of mesentery with possible matted lymph nodes A15-A20 Entire lymph nodes, one lymph node each A21 Two lymph nodes A22 Two lymph nodes, serially [id number] Three lymph nodes Grossing performed at [facility], [address] [place] [address], [place] [address], [place] [address]. [employer] Supervisor: Hany Haji M.D. MICROSCOPIC DESCRIPTION Sigmoid colon [...] CONTINUED ON NEXT PAGE RUN DATE: 01/06/19 [facility] [place] - LAB *LIVE* PAGE 3 RUNTIME: 077 Specimen Inquiry RUN USER: INTERFACE SPEC #: [facility]:[id number] PATIENT: RACHAEL BEARD #[id number] (Continued) MICROSCOPIC DESCRIPTION (Continued) demonstrates moderately differentiated [...] CM Primary Tumor (T): pT3 Lymph Node (N): pN2b Distant Metastasis (M): Stage Grouping: IIIC Surgical Margins: Negative SYNOPTIC REPORT Procedure: Sigmoidectomy Tumor site: Sigmoid colon Tumor size: 6 x 5.5 x 1.5 cm Histologic type: Adenocarcinoma Histologic grade: G2: Moderately differentiated Tumor extension: Tumor invades through [...] pN2b Signed SIGNATURE ON FILE Bull Bueno 01/06/19 1652 END OF REPORT GLUCOSE BEDSIDE [id number] 17:20:00 Test Item Value Reference Range Interpretation Comments GLUCOSE BEDSIDE TESTING (test code 103 mg/dL 70-110 N = GLUBED) GLUCOSE BEDSIDE [id number] 11:28:00 Test Item Value Reference Range Interpretation Comments GLUCOSE BEDSIDE TESTING (test code = 87 mg/dL 70-110 N GLUBED) GLUCOSE BEDSIDE [id number] 07:23:00 Test Item Value Reference Range Interpretation Comments GLUCOSE BEDSIDE TESTING (test code 108 mg/dL 70-110 N = GLUBED) GLUCOSE BEDSIDE [id number] 20:29:00 Test Item Value Reference Range Interpretation Comments GLUCOSE BEDSIDE TESTING (test code = 99 mg/dL 70-110 N GLUBED) GLUCOSE BEDSIDE [id number] 16:28:00 Test Item Value Reference Range Interpretation Comments GLUCOSE BEDSIDE TESTING (test code = 84 mg/dL 70-110 N GLUBED) GLUCOSE BEDSIDE [id number] 11:30:00 Test Item Value Reference Range Interpretation Comments GLUCOSE BEDSIDE TESTING (test code 106 mg/dL 70-110 N = GLUBED) GLUCOSE BEDSIDE [id number] 07:38:00 Test Item Value Reference Range Interpretation Comments GLUCOSE BEDSIDE TESTING (test code 120 mg/dL 70-110 H = GLUBED) CBC W/AUTO [id number] 06:24:00 Test Item Value Reference Range Interpretation Comments WHITE BLOOD CELL (test code = 10.6 K/mm3 3.5-11.0 N WBC) RED BLOOD CELL (test code = RBC) 4.06 M/mm3 4.70-6.10 L HEMOGLOBIN (test code = HGB) 10.4 G/DL 12.3-15.9 L HEMATOCRIT (test code = HCT) 32.2 % 35.8-46.7 L MEAN CELL VOLUME (test code = 79.3 Fl 86.3-98.9 L MCV) MEAN CELL HGB (test code = MCH) 25.6 pg 28.9-34.4 L MEAN CELL HGB CONCETRATION (test 32.3 G/DL 32.1-34.5 N code = MCHC) RED CELL DISTRIBUTION WIDTH (test 16.4 SD 11.5-14.5 H code = RDW) PLATELET COUNT (test code = PLT) 221.0 K/mm3 150-450 N MEAN PLATELET VOLUME (test code = 12.20 fL 7.0-9.6 H MPV) NEUTROPHIL % (test code = NT%) 73.0 % 40-76 N LYMPHOCYTE % (test code = LY%) 17.5 % 20.5-51.1 L MONOCYTE % (test code = MO%) 9.3 % 1.7-9.3 N EOSINOPHIL % (test code = EO%) 0.1 % 0.0-6.0 N BASOPHIL % (test code = BA%) 0.1 % 0.0-2.0 N NEUTROPHIL # (test code = NT#) 7.73 K/mm3 1.8-7.6 H LYMPHOCYTE # (test code = LY#) 1.9 K/mm3 0.6-3.0 N MONOCYTE # (test code = MO#) 1.0 K/mm3 0.2-1.5 N EOSINOPHIL # (test code = EO#) 0.0 K/mm3 0.0-0.4 N BASOPHIL # (test code = BA#) 0.0 K/mm3 0.0-0.2 N MANUAL DIFF REQUIRED (test code = NO DIFF/SCN CRITERIA MDIFF) GLUCOSE BEDSIDE [id number] 21:45:00 Test Item Value Reference Range Interpretation Comments GLUCOSE BEDSIDE TESTING (test code 135 mg/dL 70-110 H = GLUBED) BASIC METABOLIC [id number] 18:20:00 Test Item Value Reference Range Interpretation Comments SODIUM (test code = NA) 142 mmol/L 134-147 N POTASSIUM (test code = 4.2 mmol/L 3.4-5.0 N K) CHLORIDE (test code = 108 mmol/L 100-108 N CL) CARBON DIOXIDE (test 25 mmol/L 21-32 N code = CO2) ANION GAP (test code = 9.0 GAP calc 4.0-15.0 N GAP) GLUCOSE (test code = 140 MG/DL 70-110 H GLU) BLOOD UREA NITROGEN 16 MG/DL 7-18 N (test code = BUN) GLOMERULAR FILTRATION >=60 max estimate >60 RATE (test code = GFR) estGFR CREATININE (test code = 0.9 MG/DL 0.8-1.3 N CREAT) CALCIUM (test code = CA) 8.1 MG/DL 8.5-10.1 L [id number] 18:20:00 Test Item Value Reference Range Interpretation Comments PHOSPHOROUS (test code = PHOS) 3.2 MG/DL 2.5-4.9 N [id number] 18:20:00 Test Item Value Reference Range Interpretation Comments MAGNESIUM (test code = MAG) 1.7 MG/DL 1.8-2.4 L GLUCOSE BEDSIDE [id number] 16:54:00 Test Item Value Reference Range Interpretation Comments GLUCOSE BEDSIDE TESTING (test code 160 mg/dL 70-110 H = GLUBED) GLUCOSE BEDSIDE [id number] 14:29:00 Test Item Value Reference Range Interpretation Comments GLUCOSE BEDSIDE TESTING (test code 136 mg/dL 70-110 H = GLUBED) GLUCOSE BEDSIDE [id number] 07:31:00 Test Item Value Reference Range Interpretation Comments GLUCOSE BEDSIDE TESTING (test code 125 mg/dL 70-110 H = GLUBED)
--- OUTSIDE RECORDS SUMMARY | 2020-08-08 13:46 | XMS REPORT | Summary of Care ---
:1960 Author Organization [facility] - [facility] Address [address] [place] [id number] Care Team Providers Name Role Phone Lilly Leone Primary Care Provider Reason for Referral Radiology Services (STAT) Status Reason Specialty Diagnoses / Referred By Referred To Procedures Contact Contact New Request Diagnostic Diagnoses Left flank pain Rafai Gordon, Radiology Procedures XR LUMBAR SPINE 3 VW [facility] [address] [place] [address] Reason for Visit Reason Comments Flank Pain left Auth/Cert Status Reason Specialty Diagnoses / Referred By Referred To Procedures Contact Contact Emergency Medicine [facility] ergency Dept [address] [place] [address] Fax: Encounter Details Date Type Department Care Team Description 06/28/2020 Emergency [facility]Emergency Rafia Gordon, Acute left- sided low back pain without sciatica (Primary Dx); Department [facility] Left flank pain [address] [phone] Allergies No Known Allergiesdocumented as of this encounter (statuses as of 06/28/2020) Medications Medication Sig Dispensed Refills Start Date End Date Status ciprofloxacin HCl 500 mg Take 1 tablet by 20 tablet 0 06/01/20 18 Active tablet mouth 2 (two) times daily. naproxen (NAPROSYN) 500 Take 1 tablet by 30 tablet 0 8 Active mg tablet mouth 2 (two) times daily with meals. methylPREDNISolone Take by mouth 21 Each 0 06/15/2018 Active (MEDROL FEDERICO,) 4 mg SEE-INSTRUCTIONS tablets . follow package directions methylPREDNISolone Take by mouth 21 Each 0 06/28/2020 Active (MEDROL, FEDERICO,) 4 mg SEE-INSTRUCTIONS tabletsIndications: . follow package Acute left-sided low directions back pain without sciatica naproxen 500 mg EC Take 1 tablet by 24 tablet 0 06/28/2020 Active tabletIndications: Acute mouth 2 (two) left-sided low back pain times daily with without sciatica meals. methocarbamoL (ROBAXIN) Take 1 tablet by 24 tablet 0 0 Active 500 mg mouth 3 (three) tabletIndications: Acute times daily as left-sided low back pain needed for Pain without sciatica (scale 7-10). documented as of this encounter (statuses as of 06/28/2020) Active Problems No known active problemsdocumented as of this encounter (statuses as of 06/28/2020) Social History Tobacco Use Types Packs/Day Years Used Date Never Assessed Sex Assigned at Date Recorded Not on file COVID-19 Exposure Response Date Recorded In the last month, have you been in contact with No / Unsure 06/28/2020 2:52 PM CDT someone who was confirmed or suspected to have Coronavirus / COVID-19? documented as of this encounter Last Filed Vital Signs Vital Sign Reading Time Taken Comments Blood Pressure 113/80 06/28/2020 4:00 PM CDT Pulse 60 06/28/2020 4:00 PM CDT Temperature 37.3 C (99.1 F) 06/28/2020 2:54 PM CDT Respiratory Rate 18 06/28/2020 2:54 PM CDT Oxygen Saturation 97% 06/28/2020 4:00 PM CDT Inhaled Oxygen Concentration - - Weight 111.1 kg (245 lb) 06/28/2020 2:54 PM CDT Height 162.6 cm (5' 4") 06/28/2020 2:54 PM CDT Body Mass Index 42.05 06/28/2020 2:54 PM CDT documented in this encounter Discharge Instructions Rafia Pack FNP - 06/28/2020 DIAGNOSIS 1. Low back pain, left side NO LIFE-THREATENING FINDINGS ON TODAY'S EXAM. PROCEDURES IN THE ER TODAY: Orders Placed This Encounter Procedures XR LUMBAR SPINE 3 VW URINALYSIS CBC WITH DIFF COMP. METABOLIC PANEL (37359) LIPASE MEDICATIONS ADMINISTERED IN THE ER TODAY: Medications NaCl 0.9% (NS) bolus infusion 500 mL (500 mL IV Infusion New Bag 06/28/20 1554) ketorolac (TORADOL) injection 30 mg (30 mg Slow IV Push Given 06/28/20 1553) dexamethasone (DECADRON PHOSPHATE) injection 10 mg (10 mg IV Push Given 06/28/20 1630) YOUR PRESCRIPTIONS AND [id number] MEDICATION RECOMMENDATIONS: New Prescriptions METHOCARBAMOL (ROBAXIN) 500 MG TABLET Take 1 tablet by mouth 3 (three) times daily as needed forPain (scale 7-10). METHYLPREDNISOLONE (MEDROL, FEDERICO,) 4 MG TABLETS Take by mouth SEE- INSTRUCTIONS. follow package directions NAPROXEN 500 MG EC TABLET Take 1 tablet by mouth 2 (two) times daily with meals. SPECIAL CARE INSTRUCTIONS: Warm heating pack to area to help reduce pain. Do not lift heavy objects. Paquete de calentamiento caliente a la diane para ayudar a reducir el dolor. No levante objetos pesados. FOLLOW-UP RECOMMENDATIONS: RECOMMEND FOLLOW-UP WITH A PRIMARY CARE PROVIDER OR SPECIALIST IN 2-5 DAYS, ESPECIALLY IF NO IMPROVEMENT IN SYMPTOMS. TO FOLLOW-UP WITHIN THE [facility], TRY THESE OPTIONS (CLINIC APPOINTMENTS AVAILABLE ON [id number] BASIS): 1. SCHEDULE AN APPOINTMENT ONLINE AT WWW.[facility] 2. OR CALL THE [facility]ESS C[facility] AT OR 3. OR CALL YOUR [facility] PHYSICIAN'S OFFICE DIRECTLY IF YOU ARE ALREADY AN ESTABLISHED [facility] PATIENT. OR, YOU MAY FOLLOW-UP WITH A PROVIDER OF YOUR CHOICE, SUCH : 1. A PHYSICIAN OF YOUR CHOICE 2. [facility] AND [facility], . LOCATIONS IN [place] AND [place] 3. [facility], [address], [place]; [phone] RETURN TO ER FOR WORSENING OF SYMPTOMS. AttachmentsThe following attachments cannot be sent through Care Everywhere.Back Pain, Relieving (Thai)Safety, Back: Bending (Thai)Methocarbamol tablets (Thai)Naproxen and naproxen sodium oral immediate-release tablets (Thai) documented in this encounter ED Notes Gayla Ren RN - 06/28/2020 2:53 PM CDTPatient complaining of left lower back pain that started last night. Describes as sharp with worsening this morning. He denies pain with urination. documented in this encounter Miscellaneous Notes ED Nurse Note - Catarino Babcock RN - 06/28/2020 5:03 PM CDTVerbalized understanding of discharge instructions. No signs of distress observed. Translation line used for education of discharge instructions. Encouraged to return to ER if symptoms worsen. documented in this encounter Plan of Treatment Health Maintenance Due Date Last Done Comments HEPATITIS C (HCV) SCREEN 1960 PNEUMOCOCCAL 0-64 YEARS COMBINED SERIES (1 of 3 - 1968 PCV13) Depression Screening 1974 DTaP,Tdap,and Td Vaccines (1 - Tdap) 1981 COLON CANCER SCREENING ANNUAL FIT/FOBT 2012 COLON CANCER SCREENING FIT DNA EVERY 3 YEARS 2012 COLON CANCER SCREENING SIGMOIDOSCOPY EVERY 5 YEARS 2012 COLONOSCOPY 2012 Colorectal Cancer Screening 2012 Zoster Recombinant Vaccine (SHINGRIX) (1 of 2) 2012 INFLUENZA VACCINE (#1) 2020 documented as of this encounter Procedures Procedure Name Priority Date/Time Associated Comments Diagnosis XR LUMBAR SPINE 3 VW STAT 06/28/2020 4:24 PM Left flank pa in Results for this CDT procedure are i n the results section. URINALYSIS STAT 06/28/2020 3:29 PM Left flank pain Resul ts for this CDT procedure are i n the results section. CBC WITH DIFF STAT 06/28/2020 3:29 PM Left flank pain Resu lts for this CDT procedure are i n the results section. COMP. METABOLIC STAT 06/28/2020 3:29 PM Left flank pain Re sults for this PANEL ([id number]) CDT procedure are in the results section. LIPASE STAT 06/28/2020 3:29 PM Left flank pain Resul ts for this CDT procedure are i n the results section. NOTICE OF PRIVACY Routine 06/28/2020 2:48 PM PRACTICES CDT documented in this encounter Results XR LUMBAR SPINE 3 VW (06/28/2020 4:24 PM CDT) Specimen Narrative Performed At HISTORY: Left-sided low back back pain. PACS/VR/DOSE FINDINGS: AP, lateral and spot views of the lumbar spi wilmer showed 5 lumbar vertebrae with no acute compression frac ture or dislocation. Small osteophytes are seen along the ventral vertebral vickie ns at L2-L3, L3-L4, L4-L5. No significant narrowing of the d isc spaces detected. CONCLUSIONS: No significant plain film a bnormalities visualized lumbar spine radiographs. Procedure Note [facility], Radiant Results Inft User - 2019 4:27 PM CDT HISTORY: Left-sided low back back pain. FINDINGS: AP, lateral and spot views of the lumbar spines showed 5 lumbar vertebrae with no acute compression frac ture or dislocation. Small osteophytes are seen along the ventral v ertebral margins at L2-L3, L3-L4, L4-L5. No significant narrowing of the d isc spaces detected. CONCLUSIONS: No significant plain film a bnormalities visualized lumbar spine radiographs. Performing Organization Address City/State/Zipcode Phone Number PACS/VR/DOSE LIPASE (06/28/2020 3:29 PM CDT) Pathologist Sig nature LIPASE 39 0 - 220 U/L [facility] Specimen Blood - VENOUS Performing Organization Address City/State/Zipcode Phone Number [facility] CLIA: [id number] [place], [place] [address] LABORATORY [address] [facility] COMP. METABOLIC PANEL ([id number]) (06/28/2020 3:29 PM CDT) NA 138 135 - 145 [facility] mmol/L [facility] K 4.0 3.5 - 5.0 [facility] mmol/L [facility] CL 102 98 - 108 mmol/L [facility] CO2 TOTAL 25 23 - 31 mmol/L [facility] AGAP 11 2 - 16 [facility] BUN 13 7 - 23 mg/dL [facility] GLUCOSE 223 (H) 70 - 110 mg/dL [facility] CREATININE 0.55 (L) 0.60 - 1.25 [facility] mg/dL [facility] TOTAL BILI 0.3 0.1 - 1.1 mg/dL [facility] CALCIUM 9.2 8.6 - 10.6 [facility] mg/dL [facility] T PROTEIN 7.7 6.3 - 8.2 g/dL [facility] ALBUMIN 4.7 3.5 - 5.0 g/dL [facility] ALK PHOS 135 (H) 34 - 122 U/L [facility] ALTv 57 (H) 5 - 50 U/L [facility] AST(SGOT) 52 (H) 13 - 40 U/L [facility] eGFR Calculation 153.5 mL/min/1.73m2 [facility] (Non[facility] LABORATORY [place]) eGFR Calculation 186.1 mL/min/1.73m2 [facility] () [facility] Specimen Blood - VENOUS Narrative Performed At Association of Glomerular Filtration Rate (GFR) [facility] and Staging of Kidney Disease* + + +- + | GFR (mL/min/1.73 m2) | With Kidney Damage | Without Kidney Damage + + +- + | >90 | Stage one | Normal + + +- + | 60-89 | Stage two | Decreased GFR + + +- + | 30-59 | Stage three | Stage three + + +- + | 15-29 | Stage four | Stage four + + +- + | <15 (or dialysis) | Stage five | Stage five + + +- + *Each stage assumes the associated GFR level has been in effect for at least three months. Stages 1 to 5, with or without kidney disease, indicate chronic kidney disease. Notes: Determination of stages one and two (with eGFR >59mL/min/1.73 m2) requires estimation of kidney damage for at least three months as defined by structural or functional abnormalities of the kidney, manifested by either: Pathological abnormalities or Markers of kidney damage (including abnormalities in the composition of the blood or urine or abnormalities in imaging tests). Performing Organization Address City/State/Zipcode Phone Number [facility] CLIA: [id number] [place] [address] CBC WITH DIFF (06/28/2020 3:29 PM CDT) Pathologist Sig nature WBC 8.06 4.20 - 10.70 [facility] 10*3/L HOSPITAL LAB[facility]ATORY RBC 4.54 4.26 - 5.52 [facility] 10*6/L [facility] HGB 12.8 12.2 - 16.4 [facility] g/dL HOSPITAL LAB[facility]ATORY HCT 37.8 (L) 38.4 - 49.3 % [facility] MCV 83.3 81.7 - 95.6 fL [facility] MCH 28.2 26.1 - 32.7 pg [facility] MCHC 33.9 31.2 - 35.0 [facility] g/dL [facility] RDW-SD 44.6 38.5 - 51.6 fL [facility] RDW-CV 14.7 12.1 - 15.4 % [facility] PLT 184 150 - 328 [facility] 10*3/L [facility] MPV 12.2 9.8 - 13.0 fL [facility] NRBC/100 WBC 0.0 0.0 - 10.0 /100 [facility] WBCs [facility] NRBC x10^3 <0.01 10*3/L [facility] GRAN MAT (NEUT) % 60.5 % [facility] IMM GRAN % 0.90 % [facility] LYMPH % 28.0 % [facility] MONO % 6.6 % [facility] EOS % 3.5 % [facility] BASO % 0.5 % [facility] GRAN MAT x10^3(ANC) 4.88 1.99 - 6.95 [facility] 10*3/uL HOSPITAL LABORATORY IMM GRAN x10^3 0.07 (H) 0.00 - 0.06 [facility] 10*3/uL HOSPITAL LAB[facility]ORY LYMPH x10^3 2.26 1.09 - 3.23 [facility] 10*3/uL HOSPITAL LAB[facility]ORY MONO x10^3 0.53 0.36 - 1.02 [facility] 10*3/uL HOSPITAL LABORATORY EOS x10^3 0.28 0.06 - 0.53 [facility] 10*3/uL HOSPITAL LAB[facility]ATORY BASO x10^3 0.04 0.01 - 0.09 [facility] 10*3/uL HOSPITAL LAB[facility]ATORY Specimen Blood - VENOUS Performing Organization Address [facility] Cent[facility] Phone Number [facility] CLIA: [id number] [place] [address] URINALYSIS (06/28/2020 3:29 PM CDT) Pathologist Sig nature APPEARANCE Clear Clear [facility] COLOR Yellow Yellow [facility] PH 6.0 4.8 - 8.0 [facility] SP GRAVITY 1.018 1.003 - 1.030 [facility] GLU U QUAL Normal Normal [facility] BLOOD Negative Negative [facility] KETONES Negative Negative [facility] PROTEIN Negative Negative [facility] UROBILIN Normal Normal [facility] BILIRUBIN Negative Negative [facility] NITRITE Negative Negative [facility] LEUK MIMI Negative Negative [facility] RBC/HPF 1 0 - 3 HPF [facility] WBC/HPF <1 0 - 5 HPF [facility] BACTERIA Negative Negative [facility] SQ EPITH 1 HPF [facility] Specimen Urine - URINE, CLEAN CATCH Performing Organization Address [facility] Cent[facility]ode Phone Number [facility] CLIA: [id number] [place] [address] LABORATORY [address] [facility] documented in this encounter Visit Diagnoses Diagnosis Acute left-sided low back pain without s ciatica - Primary Left flank pain Abdominal pain, unspecified site documented in this encounter Administered Medications Medication Order MAR Action Action Date Dose Rate Site dexamethasone (DECADRON PHOSPHATE) Given 06/28/2020 4:30 PM CDT 10 mg injection 10 mg 10 mg, IV Push, ONCE, 1 dose, Fri06/28/20 at 1730, STAT ketorolac (TORADOL) injection 30 mg Given 06/28/2020 3:53 PM CDT 30 mg 30 mg, Slow IV Push, ONCE, 1 dose, Fri06/28/20 at 1630, SYDNEY, membership assistant approving Restricted medication: RAFIA GORDON NaCl 0.9% (NS) bolus infusion 500 New Bag 06/28/2020 3:54 PM CDT 500 mL 999 mL/hr mL at 999 mL/hr, 500 mL, IV Infusion, ONCE, 1 dose, 06/28/20 at 1630, STAT documented in this encounter Insurance Payer Benefit Plan / Subscriber ID Effective Phone Address T [employer] Dates HIM [facility] [id number] 2019-Angelita [phone] [employer] [facility] [phone] [place] [address] documented as of this encounter
--- OUTSIDE RECORDS SUMMARY | 2020-08-08 13:46 | XMS REPORT | Summary of Care ---
:1960 Author Organization [facility] Address [address] [place] [address] Care Team Providers Name Role Phone Tenbc Lilly Primary Care Provider Encounter Details Date Type Department Care Team Description 06/28/2020 Orders Only [facility] Doctor Unassigned, No [address] [facility] [place] [address] [address] [place] [address] Allergies No Known Allergiesdocumented as of this [...] by mouth 21 Each 0 06/15/2018 Active (MEDROL, FEDERICO,) 4 mg SEE-INSTRUCTIONS tablets . follow package directions documented as of this encounter (statuses as of 06/28/2020) Active Problems No known active problemsdocumented as of this encounter (statuses as of 06/28/2020) Social History Tobacco Use Types Packs/Day Years Used Date Never Assessed Sex Assigned at Date Recorded Not on file documented as of this encounter Last Filed Vital Signs Not on filedocumented in this encounter Plan of Treatment Health Maintenance Due Date Last Done Comments HEPATITIS C (HCV) SCREEN 1960 Depression Screening 1974 DTaP,Tdap,and Td Vaccines ( - 1981 Tdap) COLON CANCER SCREENING ANNUAL 2012 FIT/FOBT COLON CANCER SCREENING FIT DNA 2012 EVERY 3 YEARS COLON CANCER SCREENING 2012 SIGMOIDOSCOPY EVERY 5 YEARS COLONOSCOPY 2012 Colorectal Cancer Screening 2012 Zoster Recombinant Vaccine 2012 (SHINGRIX) (1 of 2) INFLUENZA VACCINE (#1) 2020 PNEUMOCOCCAL 0-64 YEARS COMBINED Aged Out No longer eligible based on SERIES patient's age to complete this topic documented as of this encounter Procedures Procedure Name Priority Date/Time Associated Diagnosis Comme nts CONSENT/REFUSAL FOR Routine 06/28/2020 2:47 PM CDT DIAGNOSIS AND TREATMENT documented in this encounter Results Not on filedocumented in this encounter Insurance Payer Benefit Plan / Subscriber ID Effective Phone Address T e Group Dates [facility] [id number] 2019-Angelita [phone] X [employer] [facility] [employer] [facility] CHOICE nt [phone] [place] [address] documented as of this encounter
--- NOTE | 2020-08-08 14:48 | RAD REPORT ---
EXAM DESCRIPTION: CT - Ct Stroke Brain Wo Cont - 08/08/2020 2:30 pm CLINICAL HISTORY: R/O STROKE Headache, drowsiness, CVA symptomology COMPARISON: Ct Stroke Brain Wo Cont dated 09/16/2019; Head Brain W/Wo Con dated 08/17/2019 TECHNIQUE: All CT scans are performed using dose optimization technique as appropriate and may inclu de automated exposure control or mA/KV adjustment according to patient size. FINDINGS: No intracranial hemorrhage, hydrocephalus or extra-axial fluid collection.No areas of brai n edema or evidence of midline shift. The paranasal sinuses and mastoids are clear. The calvarium is intact. IMPRESSION: No acute intracranial abnormality. The findings were discussed with Hua Villegas in the ER on 08/08/2020 at 2:40 p.m. by telephone.
[2020-08-08 15:02] LABS: Absolute Lymphocytes (CBC) 2.5 K/uL (0.7-4.9); Basophils % 1.4 % (0-1.3); Lymphocytes % 26.8 % (15.3-44.8); MPV 9.9 fL (7.6-11.3); RBC Red Blood Cell Count 4.66 M/uL (4.33-5.43)
[2020-08-08] MEDS ORDERED: NA CHLORIDE 0.9% 500 ML ONE (15:08)
[2020-08-08 15:31] LABS: ALT/SGPT 62 U/L (12-78); AST/SGOT 52 U/L (15-37); Albumin 3.9 g/dL (3.4-5.0); Alkaline Phosphatase 144 U/L (45-117); BUN Blood Urea Nitrogen 11 mg/dL (7-18); Bicarbonate 23 mmol/L (21-32); Bilirubin Direct < 0.1 mg/dL (0-0.2); Bilirubin Total 0.3 mg/dL (0.2-1.0); Glucose Level 119 mg/dL (74-106); Magnesium 2.1 mg/dL (1.8-2.4); NT PRO-BNP 18 pg/mL (<125); Potassium 3.8 mmol/L (3.5-5.1); Protein, Total 8.1 g/dL (6.4-8.2); Sodium Level 140 mmol/L (136-145); Troponin (Emerg Dept Use Only) < 0.02 ng/mL (0.0-0.045)
--- NOTE | 2020-08-08 15:43 | RAD REPORT ---
EXAM DESCRIPTION: RAD - Chest Single View - 08/08/2020 3:37 pm CLINICAL HISTORY: COUGH Chest pain. COMPARISON: Chest Single View dated 01/04/2020; Chest Single View dated 09/16/2019; Chest Single View dated 05/05/2019; Chest Pa And Lat (2 Views) dated 12/11/2018 FINDINGS: Portable technique limits examination quality. The lungs are grossly clear. The heart is normal in size. No displaced fractures.Right port catheter has tip in the SVC. IMPRESSION: No acute intrathoracic process suspected.
--- NOTE | 2020-08-08 15:44 | RAD REPORT ---
EXAM DESCRIPTION: RAD - Lumbar Spine 3 Views - 08/08/2020 3:37 pm CLINICAL HISTORY: PAIN Radiculopathy COMPARISON: No comparisons FINDINGS: Vertebral body heights appear maintained. No compression fracture noted. Mild disc thinnin g with endplate osteophyte L5-S1. No spondylolysis or spondylolisthesis. IMPRESSION: Mild L5-S1 spondylosis.
--- NOTE | 2020-08-08 16:55 | EDPHYS ---
Physician Documentation [facility] Name: Taiwo Chery Age: 60 yrs Sex: Male : 1960 Arrival Date: 08/08/2020 Time: 13:44 Bed 8 Private MD: ED Physician Marek Veras HPI: 08/08 14:56 This 60 yrs old Male presents to ER via Wheelchair with complaints of nancy Weakness, Dizziness, Numbness. Historical: - Allergies: 13:55 NKDA; ca1 - PMHx: 13:55 Anxiety; colon cancer; Diabetes - NIDDM; Headaches; Hyperlipidemia; Hypertension; TIA; ca1 - PSHx: 13:55 colon surgery; Colon Resection; ca1 - Immunization history:: Adult Immunizations up to date. - Social history:: Smoking status: Patient denies any tobacco usage or history of. ROS: 14:57 Constitutional: Negative for fever, chills, and weight loss, Eyes: Negative for injury, nancy pain, redness, and discharge, ENT: Negative for injury, pain, and discharge, Neck: Negative for injury, pain, and swelling, Cardiovascular: Negative for chest pain, palpitations, and edema, Respiratory: Negative for shortness of breath, cough, wheezing, and pleuritic chest pain, Abdomen/GI: Negative for abdominal pain, nausea, vomiting, diarrhea, and constipation, Back: Negative for injury and pain, : Negative for injury, bleeding, discharge, and swelling, MS/Extremity: Negative for injury and deformity, Skin: Negative for injury, rash, and discoloration, Psych: Negative for depression, anxiety, suicide ideation, homicidal ideation, and hallucinations, Allergy/Immunology: Negative for hives, rash, and allergies, Endocrine: Negative for neck swelling, polydipsia, polyuria, polyphagia, and marked weight changes, Hematologic/Lymphatic: Negative for swollen nodes, abnormal bleeding, and unusual bruising. 14:57 Neuro: Positive for weakness. Exam: 14:57 Constitutional: This is a well developed, well nourished patient who is awake, alert, nancy and in no acute distress. Head/Face: Normocephalic, atraumatic. Eyes: Pupils equal round and reactive to light, extra-ocular motions intact. Lids and lashes normal. Conjunctiva and sclera are non-icteric and not injected. Cornea within normal limits. Periorbital areas with no swelling, redness, or edema. ENT: Nares patent. No nasal discharge, no septal abnormalities noted. Tympanic membranes are normal and external auditory canals are clear. Oropharynx with no redness, swelling, or masses, exudates, or evidence of obstruction, uvula midline. Mucous membranes moist. Neck: Trachea midline, no thyromegaly or masses palpated, and no cervical lymphadenopathy. Supple, full range of motion without nuchal rigidity, or vertebral point tenderness. No Meningismus. Chest/axilla: Normal chest wall appearance and motion. Nontender with no deformity. No lesions are appreciated. Cardiovascular: Regular rate and rhythm with a normal S1 and S2. No gallops, murmurs, or rubs. Normal PMI, no JVD. No pulse deficits. Respiratory: Lungs have equal breath sounds bilaterally, clear to auscultation and percussion. No rales, rhonchi or wheezes noted. No increased work of breathing, no retractions or nasal flaring. Abdomen/GI: Soft, non-tender, with normal bowel sounds. No distension or tympany. No guarding or rebound. No evidence of tenderness throughout. Back: No spinal tenderness. No costovertebral tenderness. Full range of motion. Skin: Warm, dry with normal turgor. Normal color with no rashes, no lesions, and no evidence of cellulitis. MS/ Extremity: Pulses equal, no cyanosis. Neurovascular intact. Full, normal range of motion. Neuro: Awake and alert, GCS 15, oriented to person, place, time, and situation. Cranial nerves II-XII grossly intact. Motor strength 5/5 in all extremities. Sensory grossly intact. Cerebellar exam normal. Normal gait. Psych: Awake, alert, with orientation to person, place and time. Behavior, mood, and affect are within normal limits. 14:57 Musculoskeletal/extremity: Tendon exam: DVT Exam: No signs of deep vein thrombosis. no pain, no swelling, no tenderness, negative Homans' sign noted on exam, no appreciated bluish discoloration, no erythema, no increased warmth. Vital Signs: 13:50 BP 127 / 80; Pulse 65; Resp 18 S; Temp 97.5(TE); Pulse Ox 99% on R/A; Weight 111.13 kg ca1 (R); Height 5 ft. 2 in. (157.48 cm) (R); 14:37 BP 116 / 77; Pulse 60; Resp 17; Pulse Ox 100% ; Pain 10/10; jl7 15:30 BP 108 / 74; Pulse 63; Resp 17; Pulse Ox 98% on R/A; tw2 16:12 BP 102 / 63; Pulse 66; Resp 17; Pulse Ox 99% on R/A; tw2 16:59 BP 109 / 60; Pulse 65; Resp 15; Pulse Ox 100% ; jl7 13:50 Body Mass Index 44.81 (111.13 kg, 157.48 cm) ca1 NIH Stroke Scale Scores: 14:40 NIHSS Score: 0 jl7 Linden Coma Score: 16:41 Eye Response: spontaneous(4). Verbal Response: oriented(5). Motor Response: obeys [facility] commands(6). Total: 15. MDM: 14:07 Patient medically screened. [facility] 14:59 Data reviewed: vital signs, nurses notes, lab test result(s), EKG, radiologic studies, nancy CT scan, plain films. 16:41 Differential diagnosis: cluster headache, cerebral vascular accident, hypoglycemia, nancy hyponatremia, migraine, sinusitis, subarachnoid bleed, temporal arteritis, tension headache, trigeminal neuralgia. Data interpreted: monitoring specialist: rate is 66 beats/min, rhythm is regular, Pulse oximetry: on 99L(s) per nasal canula, is 99 %. Test interpretation: by ED physician or midlevel provider: ECG, plain radiologic studies. Counseling: I had a detailed discussion with the patient and/or guardian regarding: the historical points, exam findings, and any diagnostic results supporting the discharge/admit diagnosis, lab results, radiology results, the need for outpatient follow up, for definitive care, a neurologist. 08/08 14:50 Order name: Glucose, Ancillary Testing EDNV 08/08 14:52 Order name: Basic Metabolic Panel; Complete Time: 16:36 [facility] 08/08 14:52 Order name: CBC with Diff; Complete Time: 16:36 [facility] 08/08 14:52 Order name: LFT's; Complete Time: 16:36 [facility] 08/08 14:52 Order name: Magnesium; Complete Time: 16:36 [facility] 08/08 14:52 Order name: NT PRO-BNP; Complete Time: 16:36 [facility] 08/08 14:29 Order name: Ct Stroke Brain Wo Cont; Complete Time: 16:36 [facility] 08/08 14:52 Order name: Troponin (emerg Dept Use Only); Complete Time: 16:36 [facility] 08/08 14:52 Order name: XRAY Chest (1 view); Complete Time: 16:36 [facility] 08/08 14:52 Order name: EKG; Complete Time: 14:53 [facility] 08/08 14:52 Order name: Lumbar Spine (3 Views) XRAY; Complete Time: 16:36 [facility] 08/08 16:55 Order name: Urine Dipstick--Ancillary (enter results) aa 08/08 14:52 Order name: Cardiac monitoring; Complete Time: 15:02 [facility] 08/08 14:52 Order name: EKG - Nurse/Tech; Complete Time: 15:02 [facility] 08/08 14:52 Order name: IV Saline Lock; Complete Time: 15:02 [facility] 08/08 14:52 Order name: Labs collected and sent; Complete Time: 15:02 [facility] 08/08 14:52 Order name: O2 Per Protocol; Complete Time: 15:02 [facility] 08/08 14:52 Order name: O2 Sat Monitoring; Complete Time: 15:02 [facility] 08/08 14:52 Order name: Urine Dipstick-Ancillary (obtain specimen); Complete Time: 16:52 [facility] Administered Medications: 14:57 Drug: NS 0.9% 500 ml Route: IV; Rate: bolus; Site: right antecubital; tw2 15:35 Follow up: IV Status: Completed infusion; IV Intake: 500ml 7 16:52 Drug: Aspirin Chewable Tablet 162 mg Route: PO; jl7 17:10 Follow up: Response: No adverse reaction jl7 Point of Care Testing: Blood Glucose: 14:30 Blood Glucose: 115 mg/dL; jl7 Ranges: Critical Glucose Levels:Adult <50 mg/dl or >400 mg/dl <40 mg/dl or >180 mg/dl Disposition: 08/08/20 16:54 Discharged to Home. Impression: Weakness, Headache, Type 2 diabetes mellitus. - Condition is Stable. - Discharge Instructions: Type 2 Diabetes Mellitus, Diagnosis, Adult, General Headache Without Cause, Weakness, Weakness, [id number], Aspirin and Your Heart, General Headache Without Cause, [id number], Type 2 Diabetes Mellitus, Diagnosis, Adult, [id number]-[id number]. - Medication Reconciliation Form, Thank You Letter, Antibiotic Education, Prescription Opioid Use form. - Follow up: Private Physician; When: 2 - 3 days; Reason: Recheck today's complaints, Continuance of care, Re-evaluation by your physician. Follow up: Marco A Smiley; When: Tomorrow; Reason: Recheck today's complaints, Continuance of care, Re-evaluation by your physician. - Problem is new. - Symptoms have improved. NIH Stroke Scale - NIH Stroke Score Date: 08/08/2020 Time: 14:40 Total Score = 0 1a. Level of Consciousness (LOC) - 0(Alert) 1b. Level of Consciousness (LOC) (Year \T\ Age) - 0(Both) 1c. LOC Commands (Open \T\ Closes Eyes/Sewer Digger) - 0(Both) 2. Best Gaze (Lateral Gaze Paresis) - 0(Normal) 3. Visual Field Loss - 0(No visual loss) 4. Facial Palsy - 0(Normal) 5a. Left Arm: Motor (10-second hold) - 0(No drift) 5b. Right Arm: Motor (10-second hold) - 0(No drift) 6a. Left Leg: Motor (5-second hold - always test supine) - 0(No drift) 6b. Right Leg: Motor (5-second hold - always test supine) - 0(No drift) 7. Limb Ataxia (finger/nose \T\ heel/gutierrez - test with eyes open) - 0(Absent) 8. Sensory Loss (pinprick arms/legs/face) - 0(Normal) 9. Best Language: Aphasia (description/naming/reading) - 0(No aphasia) 10. Dysarthria (speech clarity - read or repeat words) - 0(Normal) 11. Extinction and Inattention (visual/tactile/auditory/spatial/personal) - 0(No abnormality) Initials: jl7 Signatures: Dispatcher [employer] EDMarek Quintana MD MD cha Wise, Tara, RN RN tw2 Evie Bay RN RN jl7 Stephanie Ng RN RN ca1 Corrections: (The following items were deleted from the chart) 17:22 16:54 08/08/2020 16:54 Discharged to Home. Impression: Weakness; Headache; Type jl7 2 diabetes mellitus. Condition is Stable. Discharge Instructions: Type 2 Diabetes Mellitus, Diagnosis, Adult, General Headache Without Cause, Weakness, Weakness, [id number], Aspirin and Your Heart, General Headache Without Cause, [id number], Type 2 Diabetes Mellitus, Diagnosis, Adult, [id number]-wb-[id number]. Forms are Medication Reconciliation Form, Thank You Letter, Antibiotic Education, Prescription Opioid Use. Follow up: Private Physician; When: 2 - 3 days; Reason: Recheck today's complaints, Continuance of care, Re-evaluation by your physician. Follow up: Marco A Smiley; When: Tomorrow; Reason: Recheck today's complaints, Continuance of care, Re-evaluation by your physician. Problem is new. Symptoms have improved. nancy
--- NOTE | 2020-08-08 16:55 | ER ---
Nurse's Notes [facility] Name: Taiwo Chery Age: 60 yrs Sex: Male : 1960 Arrival Date: 08/08/2020 Time: 13:44 Bed 8 Private MD: Diagnosis: Weakness;Headache;Type 2 diabetes mellitus Presentation: 08/08 13:48 Chief complaint: Chief complaint: Spouse and/or significant other states: . He has ca1 Colon Cancer Stage 3, had been a chemotherapy for 6 months, last year was the last treatment. This numbness and weakness on waist below has been going on for a year now, started before the last chemo session. Started as numbness from knees down, then went up to waist down. In the past few months, 2 months has been getting worse, complains of lower back pains. Today, we were at [employer] walking, his legs just gave out. Reports numbness, heaviness on both legs. 13:48 Method Of Arrival: Wheelchair ca1 13:50 Coronavirus screen: Client denies travel out of the [place] in the last 14 days. At this ca1 time, the client does not indicate any symptoms associated with coronavirus-19. Coronavirus screen: The client reports previous COVID testing was negative. Date of collection: June 2020. Ebola Screen: Patient negative for fever greater than or equal to 101.5 degrees Fahrenheit, and additional compatible Ebola Virus Disease symptoms Patient denies exposure to infectious person. Patient denies travel to an Ebola-affected area in the 21 days before illness onset. No symptoms or risks identified at this time. No acute neurological deficit is noted. Initial Sepsis Screen: Does the patient meet any 2 criteria? No. Patient's initial sepsis screen is negative. Does the patient have a suspected source of infection? No. Patient's initial sepsis screen is negative. Risk Assessment: Do you want to hurt yourself or someone else? Patient reports no desire to harm self or others. Onset of symptoms was August 08, 2020. 13:50 Acuity: LEONARD 3 ca1 15:01 Pre-hospital glucose is not applicable to this patient. Care prior to arrival: None. jl7 Triage Assessment: 14:00 The onset of the patients symptoms was August 08, 2020 at 13:35. jl7 14:00 General: Appears in no apparent distress. jl7 Stroke Activation: Physician: Stroke Attending; Name: ; Notified At: ; Arrived At: Physician: Chief Stroke Resident; Name: ; Notified At: ; Arrived At: Physician: Stroke Resident; Name: ; Notified At: ; Arrived At: Physician: ED Attending; Name: Rito; Notified At: 14:17; Arrived At: Physician: ED Resident; Name: ; Notified At: ; Arrived At: Historical: - Allergies: 13:55 NKDA; ca1 - PMHx: 13:55 Anxiety; colon cancer; Diabetes - NIDDM; Headaches; Hyperlipidemia; Hypertension; TIA; ca1 - PSHx: 13:55 colon surgery; Colon Resection; ca1 - Immunization history:: Adult Immunizations up to date. - Social history:: Smoking status: Patient denies any tobacco usage or history of. Screenin:23 Abuse screen: Denies threats or abuse. Nutritional screening: No deficits noted. tw2 Tuberculosis screening: No symptoms or risk factors identified. Fall Risk Secondary diagnosis (15 points) impaired mobility. Assessment: 14:17 Reassessment: Pt [place] only, at bedside, [facility] [employer] jl7 and his legs just gave out and he almost fell. Pt reports severe frontal PANCHAL, reports his body is so weak. ERD notifed. 14:22 Reassessment: pt in CT with LELE Case at this time. tw2 14:40 The patient has not been NPO before screening. The patient is currently on the jl7 following diet: regular The patient is alert, and able to follow commands. The patient does not exhibit slurred or garbled speech. The patient is not exhibiting difficulty speaking. The patient does not exhibit difficulty understanding words. The patient is able to swallow own secretions with no drooling or need for suction. Patient tolerated one teaspoon of water. No drooling, immediate coughing, gurgling, or clearing of the throat was noted. The patient did not tolerate 90mL of water. Drooling, immediate coughing, gurgling, or clearing of the throat was noted. Bedside swallow screening discontinued. Patient kept NPO until cleared by Speech Therapy or Physician. The patient failed the bedside swallow screening. The patient will be kept NPO until cleared by Speech Therapy or Physician. Provider notified of bedside swallow screening results: Marek Veras MD. General: Appears in no apparent distress. uncomfortable, obese, Behavior is crying, drowsy, uncooperative. Pain: Complains of pain in PANCHAL Pain does not radiate. Pain currently is 10 out of 10 on a pain scale. Quality of pain is described as throbbing, Pain began 30 min ago. Is continuous. Neuro: Level of Consciousness is awake, obeys commands, drowsy. Oriented to person, place, time, situation, Circuit Rider are weak bilaterally Weakness Facial symmetry appears normal. Cardiovascular: Denies chest pain, Heart tones present Patient's skin is warm and dry. Respiratory: Airway is patent Respiratory effort is even, unlabored, Respiratory pattern is regular, symmetrical, Breath sounds are clear bilaterally. GI: Abdomen is round non-distended, Patient currently denies diarrhea, nausea, vomiting. : No signs and/or symptoms were reported regarding the genitourinary system. EENT: No signs and/or symptoms were reported regarding the EENT system. Derm: Skin is pink, warm \\T\\ dry. 14:40 VAN Scoring: Arm Drift: Patients demonstrates NO arm weakness. Patient is VAN Negative. jl7 T-PA (Activase) Screening: Contraindications: Patient reports onset of signs and symptoms of stroke greater than 6 hours ago: Yes. 14:57 Reassessment: pt reports "He says he has a bad headache and wants to know if he tw2 can have something for pain says its like a 10/10", provider notified. 15:30 Reassessment: Patient appears in no apparent distress at this time. No changes from tw2 previously documented assessment. Patient is alert, oriented x 3, equal unlabored respirations, skin warm/dry/pink. 16:12 Reassessment: Patient appears in no apparent distress at this time. No changes from tw2 previously documented assessment. Patient is alert, oriented x 3, equal unlabored respirations, skin warm/dry/pink. Vital Signs: 13:50 BP 127 / 80; Pulse 65; Resp 18 S; Temp 97.5(TE); Pulse Ox 99% on R/A; Weight 111.13 kg ca1 (R); Height 5 ft. 2 in. (157.48 cm) (R); 14:37 BP 116 / 77; Pulse 60; Resp 17; Pulse Ox 100% ; Pain 10/10; jl7 15:30 BP 108 / 74; Pulse 63; Resp 17; Pulse Ox 98% on R/A; tw2 16:12 BP 102 / 63; Pulse 66; Resp 17; Pulse Ox 99% on R/A; tw2 16:59 BP 109 / 60; Pulse 65; Resp 15; Pulse Ox 100% ; jl7 13:50 Body Mass Index 44.81 (111.13 kg, 157.48 cm) ca1 Jose Coma Score: 16:41 Eye Response: spontaneous(4). Verbal Response: oriented(5). Motor Response: obeys nancy commands(6). Total: 15. NIH Stroke Scale Scores: 14:40 NIHSS Score: 0 jl7 ED Course: 13:44 Patient arrived in ED. ds1 13:54 Triage completed. ca1 13:55 Arm band placed on right wrist. ca1 13:56 Evie Bay, RN is Primary Nurse. jl7 13:56 Placed in gown. Bed in low position. alarm security or surveillance monitor on. Pulse ox on. NIBP on. tw2 14:07 Marek Veras MD is Attending Physician. nancy 14:31 Ct Stroke Brain Wo Cont In Process Unspecified. EDMS 14:48 EKG done, by ED staff, reviewed by Marek Veras MD. em1 14:50 Initial lab(s) drawn, by sd, sent to lab. Inserted saline lock: 20 gauge in right jl7 antecubital area, using aseptic technique. Blood collected. 15:37 XRAY Chest (1 view) In Process Unspecified. EDMS 15:37 Lumbar Spine (3 Views) XRAY In Process Unspecified. EDMS 16:54 Marco A Smiley MD is Referral Physician. nancy 17:20 No provider procedures requiring assistance completed. IV discontinued, intact, jl7 bleeding controlled, No redness/swelling at site. Pressure dressing applied. Administered Medications: 14:57 Drug: NS 0.9% 500 ml Route: IV; Rate: bolus; Site: right antecubital; tw2 15:35 Follow up: IV Status: Completed infusion; IV Intake: 500ml jl7 16:52 Drug: Aspirin Chewable Tablet 162 mg Route: PO; jl7 17:10 Follow up: Response: No adverse reaction jl7 Point of Care Testing: Blood Glucose: 14:30 Blood Glucose: 115 mg/dL; jl7 Ranges: Intake: 15:35 IV: 500ml; Total: 500ml. jl7 Outcome: 16:54 Discharge ordered by MD. cruz 17:20 Discharged to home via wheelchair, with family. jl7 17:20 Condition: stable 17:20 Discharge instructions given to patient, Instructed on discharge instructions, follow up and referral plans. Demonstrated understanding of instructions, follow-up care. 17:22 Patient left the ED. jl7 NIH Stroke Scale - NIH Stroke Score Date: 08/08/2020 Time: 14:40 Total Score = 0 1a. Level of Consciousness (LOC) - 0(Alert) 1b. Level of Consciousness (LOC) (Year \\T\\ Age) - 0(Both) 1c. LOC Commands (Open \\T\\ Closes Eyes/Space Control Supervisor) - 0(Both) 2. Best Gaze (Lateral Gaze Paresis) - 0(Normal) 3. Visual Field Loss - 0(No visual loss) 4. Facial Palsy - 0(Normal) 5a. Left Arm: Motor (10-second hold) - 0(No drift) 5b. Right Arm: Motor (10-second hold) - 0(No drift) 6a. Left Leg: Motor (5-second hold - always test supine) - 0(No drift) 6b. Right Leg: Motor (5-second hold - always test supine) - 0(No drift) 7. Limb Ataxia (finger/nose \\T\\ heel/gutierrez - test with eyes open) - 0(Absent) 8. Sensory Loss (pinprick arms/legs/face) - 0(Normal) 9. Best Language: Aphasia (description/naming/reading) - 0(No aphasia) 10. Dysarthria (speech clarity - read or repeat words) - 0(Normal) 11. Extinction and Inattention (visual/tactile/auditory/spatial/personal) - 0(No abnormality) Initials: jl7 Signatures: Dispatcher [employer] EDNM Marek Veras MD MD cha Sanford, Demi ds1 Power Gutierrez em1 Marguerite Buckner RN RN tw2 Evie Bay RN RN jl7 Stephanie Ng RN RN ca1 Corrections: (The following items were deleted from the chart) 13:54 13:48 Chief complaint: ca1 ca1 15:01 14:00 Blood Glucose: Blood Glucose Bmidzta=650 mg/dL. radu lovelace
[2020-08-08] MEDS ORDERED: ASPIRIN 81 MG CHEWABLE TABLET ONE (17:01)
[2020-08-08 18:08] VITALS: TEMP 97.5
[2020-08-08 18:14] VITALS: BP 109/60; O2SAT 100
[2020-08-08 18:47] LABS: Urine Blood NEGATIVE (NEG); Urine Glucose NEGATIVE (NEG); Urine Protein NEGATIVE (NEG); Urine Specific Gravity 1.025 (1.005-1.030); Urine pH 5.5 (5.0-7.0)
== END 2020-08-08 17:22 | disposition home or self-care (01) ==
LOC: ER 13:43
DX: R51 Headache (principal); E11.9 Type 2 diabetes mellitus without complications; I10 Essential (primary) hypertension; Z85.038 Personal history of other malignant neoplasm of large intestine
CPT/HCPCS: 93005; 85025; 80048; 36415; 83735; 82947; 80076; 81003; 84484; 83880; 70450; 71045; 72100; 96360; 99285; J7040

== ENCOUNTER 2021-01-25 21:19 | Emergency (ER) | payer OTHER ==
--- OUTSIDE RECORDS SUMMARY | 2021-01-25 21:22 | XMS REPORT | Continuity of Care Document ---
:1960 Author Organization [facility] t Address [address] [place] [address] Care Team Providers Name Role Phone Kiran Medina Attending Clinician Doctor Unassigned, Name Attending Clinician Unavailable Chandler HENSON Attending Clinician Payers Payer Name Policy Type Policy Number Effective Date Expiration Date S ource Problems This patient has no known problems. Allergies, Adverse Reactions, Alerts Allergy Allergy Status Severity Reaction(s) Onset Inactive Treating Comm ents Source Name Type Date Date Clinician No Known DA Active U 2018-0 [facility] Allergie 2-19 [place] s 00:00: d 00 [facility] Medications This patient has no known medications. Procedures This patient has no known procedures. Encounters Start End Encounter Admission Attending Care Care Encounter Source Date/Time Date/Time Type Type Clinicians Facility Department ID 2020-10-10 2020-10-10 Emergency E [facility] [id number] [facility] 13:09:00 13:09:00 2020-06-28 2020-06-28 Emergency WHITNEY Pisano [id number] 14:56:00 17:04:00 Keanu Capps [id number] [place] 4.2.7.2.686 [place] [id number] 2020-06-28 2020-06-28 Orders Doctor POE [id number] 00:00:00 00:00:00 Only Unassigned, [place] 350.1.13.10 [place] [facility] 4.2.7.2.686 [id number] 2020-03-20 2020-03-20 Emergency Chandler PAHANNA [id number] 18:31:57 20:18:00 Errol Capps 350.1.13.10 [place] 4.2.7.2.686 [place] [id number] Results Test Description Test Time Test Comments Results Result [facility] e Comments - XR FLUOROSCOPY 2019-01-14 Name: RACHAEL BEARD 0-60 MIN 10:27:00 [facility] Lila : 1960 Age/S: 58 / M [id number] Unit #: [id number] Loc: [place] [address] Phys: Kevin Rollins MD Acct: [id number] Dis Date: Status: REG [facility] PHONE #: [phone] Exam Date: 01/14/2019 0910 FAX #: Reason: PORT A CATH PLACEMENT EXAMS: CPT: [id number] XR FLUOROSCOPY 0-60 MIN 73918 Fluoro Time: 8 SEC DAP (Gy m2): Air Kerma (mGy): Examination: Operative fluoroscopy Location code: S17 Comparison: None Discussion: Clinical history is remarkable for Port-A-Cath placement. 8.4 seconds fluoroscopic time was utilized. Right-sided chest port is identified, catheter tip is at the cavoatrial junction. Impression: Please refer to the operative report. at 1027 Reported and signed by: Faustino Navarrete M.D. CC: Shamar SANDERS; Keivn Rollins MD PAGE 1 Signed Report Name: RACHAEL BEARD [place] : 1960 Age/S: 58 / M [id number] Unit #: [id number] Loc: [place] [address] Phys: Kevin Rollins MD Acct: [id number] Dis Date: Status: REG [facility] PHONE #: [phone] Exam Date: 01/14/2019 0910 FAX #: Reason: PORT A CATH PLACEMENT EXAMS: CPT: [id number] XR FLUOROSCOPY 0-60 MIN 39758 Fluoro Time: 8 SEC DAP (Gy m2): Air Kerma (mGy): <Continued> Technologist: Sandy Lucero, RT(R)(CT); Mary Carbajal RT(R) Trnscb Date/Time: 01/14/2019 (1022) [id number] Orig Print D/T: S: 01/14/2019 (7854) PAGE 2 Signed Report GLUCOSE BEDSIDE TESTING 2019-01-14 10:17:00 Test Item Value Reference Range Interpretation Comme nts GLUCOSE BEDSIDE TESTING (test code = GLUBED) 140 mg/dL 70-110 H - XR CHEST 1 [id number] 10:04:00 Name: RACHAEL BEARD : 1960 Age/S: 58 / M [id number] Unit #: [id number] Loc: [place] [address] Phys: Kevin Rollins MD Acct: [id number] Dis Date: Status: REG [facility] PHONE #: [phone] Exam Date: 01/14/2019 0955 FAX #: Reason: port placement EXAMS: CPT: [id number] XR CHEST 1 V 89323 Fluoro Time: DAP (Gy m2): Air Kerma (mGy): EXAM: - XR CHEST 1 V HISTORY: Port placement Location code:C3 COMPARISON: None available time of interpretation. FINDINGS: Single AP view of the chest is provided. Right IJ Por t-A-Cath with tip projecting about the distal SVC [...] PAGE 1 Signed Report Name: RACHAEL BEARD [place] : 1960 Age/S: 58 / M [id number] Unit #: [id number] Loc: [place] [address] Phys: Kevin Rollins MD Acct: [id number] Dis Date: Status: REG [facility] PHONE #: [phone] ExamDate: 01/14/2019 0955 FAX #: Reason: port placement EXAMS: CPT: [id number] XR CHEST 1 V 37224 Fluoro Time: DAP (Gy m2): Air Kerma (mGy): <Continued> Technologist: Rachael Izquierdo, RT(R)(CT); Verenice Carbajal RT(R) Trnscb Date/Time: 01/14/2019 (1004) [email or web address] Orig Print D/T: S: 01/14/2019 (1007) PAGE 2 Signed ReportGLUCOSE BEDSIDE TESTING 2019-01-14 07:20:00 Test Item Value Reference Range Interpretation Comments GLUCOSE BEDSIDE TESTING (test code 137 mg/dL 70-110 H = GLUBED) [id number] 16:52:00 RUN DATE: 01/06/19 [facility] - LAB *LIVE* PAGE 1 RUN TIME: 1651 Specimen Inquiry RUN USER: INTERFACE PATIENT: RACHAEL BEARD LOC: [place] U #: [id number] AGE/SX: 58/M ROOM: [facility] RE12/31/18REG DR: Kevin Rollins MD : 64 BED: 1 DIS: 01/02/19 STATUS: DIS IN TLOC: SPEC #: [id number] RECD: 01/01/19 STATUS: MARCIA JESUS #: [id number] ONELIA: 12/31/[address] [facility] [address]: Kevin Rollins MD ENTERED: 01/01/19 SP TYPE: SURG OTHR DR: Shamar Abreu ORDERED: SURG PATH LVL 6 COPIES TO: Shamar Abreu [address] [place] [address] [address] [place] [address] [place] [address] [place] [address] HISTOLOGY: TISSUE ID BLK PCS CESAR LEV PROCEDURE DISPOSITION ____ ___ ___ ___ SIGMOID COLON A 1-15 1 PROCEDURES: SURG PATH LVL 6 (01/01/19) TISSUES: A. SIGMOID COLON - SIGMOID COLON AND ANASTOMATIC COLON RINGS CLINICAL HISTORY COLON RECTAL CANCER -C18.9 CPT CODES CPT CODE(S): 86535 , , , , , , FINAL DIAGNOSIS Colon, sigmoid, anastomotic donuts, partial colectomy: MODERATELY DIFFERENTIATED COLORECTAL ADENOCARCINOMA, 6 CM GREATEST DIMENSION 7 LYMPH NODES POSITIVE FOR METASTATIC CARCINOMA (7/10) MARGINS NEGATIVE CONTINUED ON NEXT PAGE RUN DATE: 01/06/19 [facility] - LAB *LIVE* PAGE 2 RUN TIME: 165 Specimen Inquiry RUN USER: INTERFACE SPEC #: [id number] PATIENT: RACHAEL BEARD #[id number] (Continued) GROSS DESCRIPTION Sigmoid colon and anastomotic [...] A3 Entire circumference of distal margin A4-A5 Rn Managed Care sections of the lesion A6 Tumor with normal mucosa of proximal margin A7 Tumor with normal mucosa of closest distal margin A8 Normal mucosa A9 Rn Managed Care sections of largest anastomotic ring A10 Rn Managed Care sections of second anastomotic ring A11 Rn Managed Care sections of mesentery A12-A14 Rn Managed Care sections of mesentery with possible matted lymph nodes A15-A20 Entire lymph nodes, one lymph node each A21 Two lymph nodes A22 Two lymph nodes, serially [id number] Three lymph nodes Grossing performed at [facility] Pathology, [address] [place] [address], [place] [address]. Casing Builder: Hany Haji M.D. MICROSCOPIC DESCRIPTION Sigmoid colon [...] CONTINUED ON NEXT PAGE RUN DATE: 01/06/19 [facility] - LAB *LIVE* PAGE 3 RUNTIME: 1652 Specimen Inquiry RUN USER: INTERFACE SPEC #: [id number] PATIENT: RACHAEL BEARD #[id number] (Continued) MICROSCOPIC DESCRIPTION (Continued) demonstrates moderately differentiated [...] Signed SIGNATURE ON FILE Bull Bueno 01/06/19 165 END OF REPORT GLUCOSE BEDSIDE [id number] 17:20:00 Test Item Value Reference Range Interpretation Comments GLUCOSE BEDSIDE TESTING (test code 103 mg/dL 70-110 N = GLUBED) GLUCOSE BEDSIDE [id number] 11:28:00 Test Item Value Reference Range Interpretation Comments GLUCOSE BEDSIDE TESTING (test code = 87 mg/dL 70-110 N GLUBED) GLUCOSE BEDSIDE [id number] 07:23:00 Test Item Value Reference Range Interpretation Comments GLUCOSE BEDSIDE TESTING (test code 108 mg/dL 70-110 N = GLUBED) GLUCOSE BEDSIDE [id number] 20:29:00 Test Item Value Reference Range Interpretation Comments GLUCOSE BEDSIDE TESTING (test code = 99 mg/dL 70-110 N GLUBED) GLUCOSE BEDSIDE [id number] 16:28:00 Test Item Value Reference Range Interpretation Comments GLUCOSE BEDSIDE TESTING (test code = 84 mg/dL 70-110 N GLUBED) GLUCOSE BEDSIDE [id number] 11:30:00 Test Item Value Reference Range Interpretation Comments GLUCOSE BEDSIDE TESTING (test code 106 mg/dL 70-110 N = GLUBED) GLUCOSE BEDSIDE [id number] 07:38:00 Test Item Value Reference Range Interpretation Comments GLUCOSE BEDSIDE TESTING (test code 120 mg/dL 70-110 H = GLUBED) CBC W/AUTO [id number] 06:24:00 Test Item Value Reference Range Interpretation [...] = NO DIFF/SCN CRITERIA MDIFF) GLUCOSE BEDSIDE [id number] 21:45:00 Test Item Value Reference Range Interpretation Comments GLUCOSE BEDSIDE TESTING (test code 135 mg/dL 70-110 H = GLUBED) BASIC METABOLIC [id number] 18:20:00 Test Item Value Reference Range Interpretation [...] code = CA) 8.1 MG/DL 8.5-10.1 L [id number] 18:20:00 Test Item Value Reference Range Interpretation Comments PHOSPHOROUS (test code = PHOS) 3.2 MG/DL 2.5-4.9 N [id number] 18:20:00 Test Item Value Reference Range Interpretation Comments MAGNESIUM (test code = MAG) 1.7 MG/DL 1.8-2.4 L GLUCOSE BEDSIDE [id number] 16:54:00 Test Item Value Reference Range Interpretation Comments GLUCOSE BEDSIDE TESTING (test code 160 mg/dL 70-110 H = GLUBED) GLUCOSE BEDSIDE [id number] 14:29:00 Test Item Value Reference Range Interpretation Comments GLUCOSE BEDSIDE TESTING (test code 136 mg/dL 70-110 H = GLUBED) GLUCOSE BEDSIDE [id number] 07:31:00 Test Item Value Reference Range Interpretation Comments GLUCOSE BEDSIDE TESTING (test code 125 mg/dL 70-110 H = GLUBED)
[2021-01-25] MEDS ORDERED: ACETAMINOPHEN 500 MG TAB ONE (22:40)
[2021-01-25 23:53] LABS: Absolute Lymphocytes (CBC) 1.1 K/uL (0.7-4.9); Basophils % 0.6 % (0-1.3); Hematocrit 34.9 % (39.6-49.0); Lymphocytes % 13.2 % (15.3-44.8); MPV 10.1 fL (7.6-11.3); RBC Red Blood Cell Count 4.17 M/uL (4.33-5.43)
[2021-01-26 00:21] LABS: Urine Blood NEGATIVE (NEG); Urine Glucose NEGATIVE (NEG); Urine Protein NEGATIVE (NEG); Urine Specific Gravity 1.025 (1.005-1.030)
[2021-01-26 00:37] LABS: ALT/SGPT 58 U/L (12-78); AST/SGOT 40 U/L (15-37); BUN Blood Urea Nitrogen 13 mg/dL (7-18); Bicarbonate 22 mmol/L (21-32); Bilirubin Direct < 0.1 mg/dL (0-0.2); Bilirubin Total 0.3 mg/dL (0.2-1.0); Glucose Level 132 mg/dL (74-106); Protein, Total 7.5 g/dL (6.4-8.2); Sodium Level 137 mmol/L (136-145)
[2021-01-26 00:38] LABS: Albumin 3.4 g/dL (3.4-5.0)
[2021-01-26 01:06] LABS: Alkaline Phosphatase ND U/L (45-117)
[2021-01-26 02:01] LABS: SARS-COV-2 RT PCR NEGATIVE (NEGATIVE)
[2021-01-26] MEDS ORDERED: NA CHLORIDE 0.9% 1,000 ML ONE (02:43)
--- NOTE | 2021-01-26 04:41 | ER ---
Nurse's Notes [facility] Name: Taiwo Chery Age: 60 yrs Sex: Male : 1960 Arrival Date: 01/25/2021 Time: 21:22 Bed 16 Private MD: Diagnosis: Fever, unspecified Presentation: 01/25 21:53 Chief complaint: Spouse and/or significant other states: Fever, headache x 2 days. Was ca1 at the doctor yesterday and was diagnosed of UTI and prescribed Levaquin. but the fever does not go down. Fever 101.8F 30 mins [employer]. Ibuprofen given at 1999. Coronavirus screen: Client denies travel out of the [place] in the last 14 days. fever, headache, Client presents with at least one sign or symptom that may indicate coronavirus-19. Provider contacted for isolation considerations. Ebola Screen: Patient negative for fever greater than or equal to 101.5 degrees Fahrenheit, and additional compatible Ebola Virus Disease symptoms Patient denies exposure to infectious person. Patient denies travel to an Ebola-affected area in the 21 days before illness onset. No symptoms or risks identified at this time. Initial Sepsis Screen: Does the patient meet any 2 criteria? Yes Does the patient have a suspected source of infection? No. Patient's initial sepsis screen is negative. Risk Assessment: Do you want to hurt yourself or someone else? Patient reports no desire to harm self or others. Onset of symptoms was January 25, 2021. 21:53 Method Of Arrival: Wheelchair ca1 21:53 Acuity: LEONARD 3 ca1 Historical: - Allergies: 21:56 NKDA; ca1 - PMHx: 21:56 Anxiety; colon cancer; Diabetes - NIDDM; Headaches; Hyperlipidemia; Hypertension; TIA; ca1 - PSHx: 21:56 colon surgery; Colon Resection; ca1 - Immunization history:: Flu vaccine is up to date. - Social history:: Smoking status: Patient denies any tobacco usage or history of. Screenin:04 Abuse screen: Denies threats or abuse. Denies injuries from another. Nutritional mg2 screening: No deficits noted. Tuberculosis screening: No symptoms or risk factors identified. Fall Risk IV access (20 points). Assessment: 23:03 General: Appears in no apparent distress. comfortable, Behavior is calm, cooperative. mg2 Pain: Complains of pain in back Pain does not radiate. Neuro: Level of Consciousness is awake, alert, obeys commands, Oriented to person, place, time, situation. Cardiovascular: Capillary refill < 3 seconds Patient's skin is warm and dry. Respiratory: Airway is patent Respiratory effort is even, unlabored, Respiratory pattern is regular, symmetrical. GI: No signs and/or symptoms were reported involving the gastrointestinal system. EENT: No signs and/or symptoms were reported regarding the EENT system. Derm: Skin is intact, is healthy with good turgor, Skin is pink, warm \T\ dry. normal. Musculoskeletal: Circulation, motion, and sensation intact. Capillary refill < 3 seconds. 01/26 00:37 Reassessment: nicko from laboratory called lactate 3.0 ED provider aware. rr5 Vital Signs: 01/25 21:53 BP 129 / 66; Pulse 76; Resp 16 S; Temp 99.7(TE); Pulse Ox 98% on R/A; Weight 108.86 kg ca1 (R); Height 5 ft. 4 in. (162.56 cm) (R); 21:56 Temp 100.4(O); ca1 22:17 BP 110 / 67; Pulse 75; Resp 18; Temp 100.8(O); Pulse Ox 100% on R/A; mg2 01/26 00:28 BP 115 / 75; Pulse 62; Resp 18; Temp 98.8; Pulse Ox 97% on R/A; mg2 01:56 BP 120 / 73; Pulse 61; Resp 18; Pulse Ox 99% on R/A; mg2 03:20 Pulse 61; Resp 18; Pulse Ox 98% on R/A; mg2 04:33 BP 120 / 60; Pulse 65; Resp 18; Temp 98.1(TE); Pulse Ox 99% on R/A; mg2 01/25 21:53 Body Mass Index 41.20 (108.86 kg, 162.56 cm) ca1 ED Course: 01/25 21:22 Patient arrived in ED. cl3 21:55 Triage completed. ca1 21:56 Arm band placed on right wrist. ca1 22:16 Jorgito Obrien RN is Primary Nurse. mg2 22:21 Titi Juárez MD is Attending Physician. mh7 22:35 Inserted saline lock: 20 gauge in left forearm, using aseptic technique. Blood mg2 collected. 23:04 No provider procedures requiring assistance completed. mg2 23:05 Patient has correct armband on for positive identification. mg2 23:54 Chest Single View XRAY In Process Unspecified. EDMS 01/26 04:34 IV discontinued, intact, bleeding controlled, No redness/swelling at site. Pressure mg2 dressing applied. Administered Medications: 01/25 22:30 Drug: Tylenol 1000 mg Route: PO; mg2 01/26 00:25 Follow up: Response: No adverse reaction mg2 02:35 Drug: NS 0.9% 1000 ml Route: IV; Rate: 1000 ml; Site: left antecubital; mg2 03:37 Follow up: Response: No adverse reaction; IV Status: Completed infusion; IV Intake: mg2 1000ml Intake: 03:37 IV: 1000ml; Total: 1000ml. mg2 Outcome: 04:40 Discharge ordered by MD. hardin 04:48 Discharged to home ambulatory, with family. mg2 04:48 Condition: stable 04:48 Discharge instructions given to patient, Instructed on discharge instructions, follow up and referral plans. Demonstrated understanding of instructions, follow-up care. 04:48 Patient left the ED. mg2 Signatures: Dispatcher [employer] EDSC Jorgito Obrien RN RN mg2 Angel Mahajan RN RN rr5 Stephanie Ng RN RN Gordy Edmonds cl3 Titi Juárez MD MD mh7
--- NOTE | 2021-01-26 04:41 | EDPHYS ---
Physician Documentation [facility] Name: Taiwo Chery Age: 60 yrs Sex: Male : 1960 Arrival Date: 01/25/2021 Time: 21:22 Bed 16 Private MD: ED Physician Titi Juárez HPI: 01/25 23:56 This 60 yrs old Male presents to ER via Wheelchair with complaints of Fever. mh7 23:56 The patient reports fever, that was measured at 101.8 degrees Fahrenheit. Onset: The mh7 symptoms/episode began/occurred 4 day(s) ago. Modifying factors: there are no obvious modifying factors. Associated signs and symptoms: Pertinent positives: chills, Pertinent negatives: abdominal pain, altered mental status, arthralgias, backache, chest pain, cough, diarrhea, pulling at ears, earache, headache, hemoptysis, myalgias, nausea, night sweats, sinus congestion, sinus drainage, skin rash, shortness of breath, sore throat, swelling, vomiting. Severity of symptoms: At their worst the symptoms were moderate today, in the emergency department the symptoms have improved moderately. The patient has been recently seen by a physician: the patient's primary care provider. Historical: - Allergies: 21:56 NKDA; ca1 - PMHx: 21:56 Anxiety; colon cancer; Diabetes - NIDDM; Headaches; Hyperlipidemia; Hypertension; TIA; ca1 - PSHx: 21:56 colon surgery; Colon Resection; ca1 - Immunization history:: Flu vaccine is up to date. - Social history:: Smoking status: Patient denies any tobacco usage or history of. ROS: 23:56 Eyes: Negative for injury, pain, redness, and discharge, Neck: Negative for injury, mh7 pain, and swelling. 23:56 Cardiovascular: Negative for chest pain, palpitations, and edema, Respiratory: Negative for shortness of breath, cough, wheezing, and pleuritic chest pain, Abdomen/GI: Negative for abdominal pain, nausea, vomiting, diarrhea, and constipation, Back: Negative for injury and pain, MS/Extremity: Negative for injury and deformity, Skin: Negative for injury, rash, and discoloration, Neuro: Negative for headache, weakness, numbness, tingling, and seizure, Psych: Negative for depression, anxiety, suicide ideation, homicidal ideation, and hallucinations, Allergy/Immunology: Negative for hives, rash, and allergies, Endocrine: Negative for neck swelling, polydipsia, polyuria, polyphagia, and marked weight changes, Hematologic/Lymphatic: Negative for swollen nodes, abnormal bleeding, and unusual bruising. 23:56 ENT: Positive for rhinorrhea. 23:56 : Positive for urinary frequency. Exam: 23:56 Constitutional: This is a well developed, well nourished patient who is awake, alert, mh7 and in no acute distress. Head/Face: Normocephalic, atraumatic. Eyes: Pupils equal round and reactive to light, extra-ocular motions intact. Lids and lashes normal. Conjunctiva and sclera are non-icteric and not injected. Cornea within normal limits. Periorbital areas with no swelling, redness, or edema. ENT: Nares patent. No nasal discharge, no septal abnormalities noted. Tympanic membranes are normal and external auditory canals are clear. Oropharynx with no redness, swelling, or masses, exudates, or evidence of obstruction, uvula midline. Mucous membranes moist. Neck: Trachea midline, no thyromegaly or masses palpated, and no cervical lymphadenopathy. Supple, full range of motion without nuchal rigidity, or vertebral point tenderness. No Meningismus. Chest/axilla: Normal chest wall appearance and motion. Nontender with no deformity. No lesions are appreciated. Cardiovascular: Regular rate and rhythm with a normal S1 and S2. No gallops, murmurs, or rubs. Normal PMI, no JVD. No pulse deficits. Respiratory: Lungs have equal breath sounds bilaterally, clear to auscultation and percussion. No rales, rhonchi or wheezes noted. No increased work of breathing, no retractions or nasal flaring. Abdomen/GI: Soft, non-tender, with normal bowel sounds. No distension or tympany. No guarding or rebound. No evidence of tenderness throughout. Back: No spinal tenderness. No costovertebral tenderness. Full range of motion. Skin: Warm, dry with normal turgor. Normal color with no rashes, no lesions, and no evidence of cellulitis. MS/ Extremity: Pulses equal, no cyanosis. Neurovascular intact. Full, normal range of motion. Neuro: Awake and alert, GCS 15, oriented to person, place, time, and situation. Cranial nerves II-XII grossly intact. Motor strength 5/5 in all extremities. Sensory grossly intact. Cerebellar exam normal. Normal gait. Psych: Awake, alert, with orientation to person, place and time. Behavior, mood, and affect are within normal limits. Vital Signs: 21:53 BP 129 / 66; Pulse 76; Resp 16 S; Temp 99.7(TE); Pulse Ox 98% on R/A; Weight 108.86 kg ca1 (R); Height 5 ft. 4 in. (162.56 cm) (R); 21:56 Temp 100.4(O); ca1 22:17 BP 110 / 67; Pulse 75; Resp 18; Temp 100.8(O); Pulse Ox 100% on R/A; mg2 03/19 00:28 BP 115 / 75; Pulse 62; Resp 18; Temp 98.8; Pulse Ox 97% on R/A; mg2 01:56 BP 120 / 73; Pulse 61; Resp 18; Pulse Ox 99% on R/A; mg2 03:20 Pulse 61; Resp 18; Pulse Ox 98% on R/A; mg2 04:33 BP 120 / 60; Pulse 65; Resp 18; Temp 98.1(TE); Pulse Ox 99% on R/A; mg2 03/18 21:53 Body Mass Index 41.20 (108.86 kg, 162.56 cm) ca1 MDM: 04:37 Differential diagnosis: viral Infection, bacterial infection, URI, bronchitis, mh7 pneumonia UTI. Data reviewed: vital signs, nurses notes, EMS record, lab test result(s), CBC, electrolytes, Flu: negative urinalysis, radiologic studies, plain films. Data interpreted: Pulse oximetry: on room air is 99 %. Interpretation: normal. Counseling: I had a detailed discussion with the patient and/or guardian regarding: the historical points, exam findings, and any diagnostic results supporting the discharge/admit diagnosis, lab results, radiology results, the need for outpatient follow up, to return to the emergency department if symptoms worsen or persist or if there are any questions or concerns that arise at home. Response to treatment: the patient's symptoms have resolved after treatment, the patient's blood pressure is in an acceptable range, mental status has returned to baseline, the patient no longer shows bradycardia, the patient is not short of breath, the patient is not tachycardic, the patient's pain is gone, the patient's temperature has normalized, the patient is now symptom free. 04:40 Patient medically screened. [facility] 01/25 23:03 Order name: Urine Dipstick--Ancillary (enter results); Complete Time: 00:25 2 01/25 23:09 Order name: CBC with Diff [facility] 01/25 23:09 Order name: Basic Metabolic Panel [facility] 01/25 23:09 Order name: LFT's [facility] 01/25 23:09 Order name: Strep [facility] 01/25 23:09 Order name: Influenza Screen (a \\T\\ B) [facility] 01/25 23:09 Order name: COVID-19 : Document "Date of Symptom Onset" if Symptomatic. [facility] 01/25 23:09 Order name: Lactate [facility] 01/25 23:09 Order name: Procalcitonin; Complete Time: 02:01 [facility] 01/25 23:10 Order name: CBC with Automated Diff; Complete Time: 00:25 EDNM 01/25 23:10 Order name: Basic Metabolic Panel; Complete Time: 01:22 EDMS 01/25 23:10 Order name: Liver (Hepatic) Function; Complete Time: 01:22 EDMS 01/25 23:10 Order name: Group A Streptococcus Rapid Sc; Complete Time: 03:36 EDNM 01/25 22:49 Order name: Urine Dipstick-Ancillary (obtain specimen); Complete Time: 23:02 [facility] 01/25 23:09 Order name: Chest Single View XRAY [facility] 01/25 23:09 Order name: Saline Lock; Complete Time: 23:10 [facility] 01/25 23:10 Order name: Lactate; Complete Time: 00:36 EDMS 01/26 02:01 Order name: COVID-19/FLU A+B; Complete Time: 02:23 EDNM 01/26 03:02 Order name: Throat Culture [facility] 01/26 04:11 Order name: Lactate Sepsis 2 HR Follow-up; Complete Time: 04:30 EDMS Administered Medications: 01/25 22:30 Drug: Tylenol 1000 mg Route: PO; mg2 01/26 00:25 Follow up: Response: No adverse reaction mg2 02:35 Drug: NS 0.9% 1000 ml Route: IV; Rate: 1000 ml; Site: left antecubital; mg2 03:37 Follow up: Response: No adverse reaction; IV Status: Completed infusion; IV Intake: mg2 1000ml Disposition: 01/26/21 04:40 Discharged to Home. Impression: Fever, unspecified. - Condition is Stable. - Discharge Instructions: Fever, Adult. - Family Work Release, Medication Reconciliation Form, Thank You Letter, Antibiotic Education, Prescription Opioid Use form. - Follow up: Private Physician; When: 1 - 2 days; Reason: Worsening of condition, Recheck today's complaints, Continuance of care, Re-evaluation by your physician. - Problem is an ongoing problem. - Symptoms have improved. Signatures: Dispatcher [employer] [facility] Shun Sims, DIRECTOR STUDENT UNION-C DIRECTOR STUDENT UNION-Cla1 Jorgito Obrien RN RN mg2 Stephanie Ng RN RN ca1 Titi Juárez MD MD mh7 Corrections: (The following items were deleted from the chart) 00:47 01/25 23:10 Influenza Screen (A ordered. [facility] 01/26 00:47 01/25 23:10 CORONAVIRUS ordered. [facility] 01/26 04:48 04:40 01/26/2021 04:40 Discharged to Home. Impression: Fever, unspecified. Condition is mg2 Stable. Forms are Family Work Release, Medication Reconciliation Form, Thank You Letter, Antibiotic Education, Prescription Opioid Use. Follow up: Private Physician; When: 1 - 2 days; Reason: Worsening of condition, Recheck today's complaints, Continuance of care, Re-evaluation by your physician. Problem is an ongoing problem. Symptoms have improved. mh7
[2021-01-26 05:06] VITALS: BP 120/60; TEMP 98.1; O2SAT 99
--- NOTE | 2021-01-27 10:37 | RAD REPORT ---
EXAM DESCRIPTION: RAD - Chest Single View - 01/25/2021 11:54 pm CLINICAL HISTORY: FEVER COMPARISON: None. FINDINGS: Single frontal radiograph view of the chest. Cardiomediastinal silhouette: Normal size and contour. Right-sided Mediport with tip in the SVC. Lungs: No consolidation, pneumothorax, or pleural effusion. Low lung volumes. Large body habitus. Bones: Generative change of the acromioclavicular joints. Upper abdomen: No abnormality identified. IMPRESSION: 1. No definite acute pneumonic process. Low lung volumes. Electronically signed by: Gadiel Jacobson 01/26/2021 12:04 AM CDT Due to temporary technical issues with the PACS/Fluency reporting system, reports are being signed by the in house radiologist without review as a courtesy to ensure prompt reporting. The interpreting r adiologist is fully responsible for the content of the report.
== END 2021-01-26 04:48 | disposition home or self-care (01) ==
LOC: ER 21:19
DX: R50.9 Fever, unspecified (principal); Z20.822 Contact with and (suspected) exposure to COVID-19; I10 Essential (primary) hypertension; Z85.038 Personal history of other malignant neoplasm of large intestine
CPT/HCPCS: 87070; 85025; 80048; 36415 ×2; 80076; 87081; 83605 ×2; 81003; 84145; 0240U; 71045; 96360; 99284; J7030

== ENCOUNTER 2021-02-23 21:34 | Emergency (ER) | payer OTHER ==
--- OUTSIDE RECORDS SUMMARY | 2021-02-23 21:37 | XMS REPORT | Continuity of Care Document ---
:1960 Author Organization [facility] t Address [address] [place] [address] Care Team Providers Name Role Phone Kiran [...] Date Clinician No Known DA Active U 2018- [facility] Allergie 2-19 [place] s 00:00: d 00 [facility] Medications This patient has no known medications. Procedures This patient has no known procedures. Encounters Start End Encounter Admission Attending Care Care Encounter Source Date/Time Date/Time Type Type Clinicians Facility Department ID 2020-10-10 2020-10-10 Emergency E [facility]BL [facility]BL [id number] [facility]BL 13:09:00 13:09:00 2020-06-28 2020-06-28 Emergency WHITNEY Pisano [id number] 14:56:00 17:04:00 Keanu Capps 350.1.13.10 [place] 4.2.7.2.686 [place] [id number] 2020-06-28 2020-06-28 Orders Doctor POE [id number] 00:00:00 00:00:00 Only Unassigned, DESTINY 350.1.13.10 [place] [facility] 4.2.7.2.686 [id number] 2020-03-20 2020-03-20 Emergency Chandler SCHANNA [id number] 18:31:57 20:18:00 Errol Capps 350.1.13.10 [place] 4.2.7.2.686 [place] [id number] Results Test Description Test Time Test Comments Results Result [facility] e Comments - XR FLUOROSCOPY 2019-01-14 Name: RACHAEL BEARD 0-60 MIN 10:27:00 [facility] Lila : 1960 Age/S: 58 / M [id number] Unit #: [id number] Loc: [place] [address] Phys: Kevin Rollins MD Acct: [id number] Dis Date: Status: REG [facility] PHONE #: [phone] Exam Date: 01/14/2019 0910 FAX #: Reason: PORT A CATH PLACEMENT EXAMS: CPT: [id number] XR FLUOROSCOPY 0-60 MIN 89925 Fluoro Time: 8 SEC DAP (Gy m2): [...] PAGE 1 Signed Report Name: RACHAEL BEARD [place] : 1960 Age/S: 58 / M [id number] Unit #: [id number] Loc: [place] [address] Phys: Kevin Rollins MD Acct: [id number] Dis Date: Status: REG [facility] PHONE #: [phone] Exam Date: 01/14/2019 0910 FAX #: Reason: PORT A CATH PLACEMENT EXAMS: CPT: [id number] XR FLUOROSCOPY 0-60 MIN 28883 Fluoro Time: 8 SEC DAP (Gy m2): Air Kerma (mGy): <Continued> Technologist: Sandy Lucero, RT(R)(CT); Mary Carbajal RT(R) Trnscb Date/Time: 01/14/2019 (1025) [id number] Orig Print D/T: S: 01/14/2019 (7921) PAGE 2 Signed Report GLUCOSE BEDSIDE TESTING 2019-01-14 10:17:00 Test Item Value Reference Range Interpretation Comme nts GLUCOSE BEDSIDE TESTING (test code = GLUBED) 140 mg/dL 70-110 H - XR CHEST 1 [id number] 10:04:00 Name: RACHAEL BEARD : 1960 Age/S: 58 / M [id number] Unit #: [id number] Loc: [place] [address] Phys: Kevin Rollins MD Acct: [id number] Dis Date: Status: REG [facility] PHONE #: [phone] Exam Date: 01/14/2019 0955 FAX #: Reason: port placement EXAMS: CPT: [id number] XR CHEST 1 V 59179 Fluoro Time: DAP (Gy m2): Air Kerma [...] PAGE 1 Signed Report Name: RACHAEL BEARD [place] : 1960 Age/S: 58 / M [id number] Unit #: [id number] Loc: [place] [address] Phys: Kevin Rollins MD Acct: [id number] Dis Date: Status: REG [facility] PHONE #: [phone] ExamDate: 01/14/2019 0955 FAX #: Reason: port placement EXAMS: CPT: [id number] XR CHEST 1 V 99215 Fluoro Time: DAP (Gy m2): Air Kerma (mGy): <Continued> Technologist: Rachael Izquierdo, RT(R)(CT); Verenice Carbajal RT(R) Trnscb Date/Time: 01/14/2019 (1004) [email or web address] Orig Print D/T: S: 01/14/2019 (1007) PAGE 2 Signed ReportGLUCOSE BEDSIDE TESTING 2019-01-14 07:20:00 Test Item Value Reference Range Interpretation Comments GLUCOSE BEDSIDE TESTING (test code 137 mg/dL 70-110 H = GLUBED) [id number] 16:52:00 RUN DATE: 01/06/19 [facility] - LAB *LIVE* PAGE 1 RUN TIME: 1651 Specimen Inquiry RUN USER: INTERFACE PATIENT: RACHAEL BEARD LOC: [place] U #: [id number] AGE/SX: 58/M ROOM: [facility] RE12/31/18REG DR: Kevin Rollins MD : 64 BED: 1 DIS: 01/02/19 STATUS: DIS IN TLOC: SPEC #: [id number] RECD: 01/01/19 STATUS: MARCIA JESUS #: [id number] ONELIA: 12/31/[address] [facility] [address]: Kevin Rollins MD ENTERED: 01/01/19 SP TYPE: SURG OTHR DR: Shamar Abreu ORDERED: SURG PATH LVL 6 COPIES TO: Shamar Abreu [address] [place] [address] [address] [place] [address] [place] [address] [place] [address] HISTOLOGY: TISSUE ID BLK PCS CESAR LEV PROCEDURE DISPOSITION ____ ___ ___ ___ SIGMOID COLON A 1-15 1 PROCEDURES: SURG PATH LVL 6 (01/01/19) TISSUES: A. SIGMOID COLON - SIGMOID COLON AND ANASTOMATIC COLON RINGS CLINICAL HISTORY COLON RECTAL CANCER -C18.9 CPT CODES CPT CODE(S): 49486 , , , , , , FINAL DIAGNOSIS Colon, sigmoid, anastomotic donuts, partial colectomy: MODERATELY DIFFERENTIATED COLORECTAL ADENOCARCINOMA, 6 CM GREATEST DIMENSION 7 LYMPH NODES POSITIVE FOR METASTATIC CARCINOMA (7/10) MARGINS NEGATIVE CONTINUED ON NEXT PAGE RUN DATE: 01/06/19 [facility] - LAB *LIVE* PAGE 2 RUN TIME: 165 Specimen Inquiry RUN USER: INTERFACE SPEC #: [id number] PATIENT: RACHAEL BEARD #[id number] (Continued) GROSS DESCRIPTION Sigmoid colon and anastomotic [...] A3 Entire circumference of distal margin A4-A5 Senior Ssis Developer sections of the lesion A6 Tumor with normal mucosa of proximal margin A7 Tumor with normal mucosa of closest distal margin A8 Normal mucosa A9 Senior Ssis Developer sections of largest anastomotic ring A10 Senior Ssis Developer sections of second anastomotic ring A11 Senior Ssis Developer sections of mesentery A12-A14 Senior Ssis Developer sections of mesentery with possible matted lymph nodes A15-A20 Entire lymph nodes, one lymph node each A21 Two lymph nodes A22 Two lymph nodes, serially [id number] Three lymph nodes Grossing performed at [facility] Pathology, [address] [place] [address], [place] [address]. Senior J2Ee Developer: Hany Haji M.D. MICROSCOPIC DESCRIPTION Sigmoid colon [...] CONTINUED ON NEXT PAGE RUN DATE: 01/06/19 [facility] - LAB *LIVE* PAGE 3 RUNTIME: 1652 Specimen Inquiry RUN USER: INTERFACE SPEC #: [facility]:[id number] PATIENT: RACHAEL BEARD #[id number] (Continued) MICROSCOPIC DESCRIPTION (Continued) demonstrates moderately differentiated [...] 01/06/19 165 END OF REPORT GLUCOSE BEDSIDE [id number] 17:20:00 Test Item Value Reference Range Interpretation Comments GLUCOSE BEDSIDE TESTING (test code 103 mg/dL 70-110 N = GLUBED) GLUCOSE BEDSIDE [id number] 11:28:00 Test Item Value Reference Range Interpretation Comments GLUCOSE BEDSIDE TESTING (test code = 87 mg/dL 70-110 N GLUBED) GLUCOSE BEDSIDE [id number] 07:23:00 Test Item Value Reference Range Interpretation Comments GLUCOSE BEDSIDE TESTING (test code 108 mg/dL 70-110 N = GLUBED) GLUCOSE BEDSIDE [id number] 20:29:00 Test Item Value Reference Range Interpretation Comments GLUCOSE BEDSIDE TESTING (test code = 99 mg/dL 70-110 N GLUBED) GLUCOSE BEDSIDE [id number] 16:28:00 Test Item Value Reference Range Interpretation Comments GLUCOSE BEDSIDE TESTING (test code = 84 mg/dL 70-110 N GLUBED) GLUCOSE BEDSIDE [id number] 11:30:00 Test Item Value Reference Range Interpretation Comments GLUCOSE BEDSIDE TESTING (test code 106 mg/dL 70-110 N = GLUBED) GLUCOSE BEDSIDE [id number] 07:38:00 Test Item Value Reference Range Interpretation Comments GLUCOSE BEDSIDE TESTING (test code 120 mg/dL 70-110 H = GLUBED) CBC W/AUTO [id number] 06:24:00 Test Item Value Reference Range Interpretation [...] = NO DIFF/SCN CRITERIA MDIFF) GLUCOSE BEDSIDE [id number] 21:45:00 Test Item Value Reference Range Interpretation Comments GLUCOSE BEDSIDE TESTING (test code 135 mg/dL 70-110 H = GLUBED) BASIC METABOLIC [id number] 18:20:00 Test Item Value Reference Range Interpretation [...] code = CA) 8.1 MG/DL 8.5-10.1 L [id number] 18:20:00 Test Item Value Reference Range Interpretation Comments PHOSPHOROUS (test code = PHOS) 3.2 MG/DL 2.5-4.9 N [id number] 18:20:00 Test Item Value Reference Range Interpretation Comments MAGNESIUM (test code = MAG) 1.7 MG/DL 1.8-2.4 L GLUCOSE BEDSIDE [id number] 16:54:00 Test Item Value Reference Range Interpretation Comments GLUCOSE BEDSIDE TESTING (test code 160 mg/dL 70-110 H = GLUBED) GLUCOSE BEDSIDE [id number] 14:29:00 Test Item Value Reference Range Interpretation Comments GLUCOSE BEDSIDE TESTING (test code 136 mg/dL 70-110 H = GLUBED) GLUCOSE BEDSIDE [id number] 07:31:00 Test Item Value Reference Range Interpretation Comments GLUCOSE BEDSIDE TESTING (test code 125 mg/dL 70-110 H = GLUBED)
[2021-02-23] MEDS ORDERED: ONDANSETRON 4 MG/2 ML VIAL ONE (23:38)
[2021-02-23] MEDS ORDERED: MORPHINE 4 MG/ML SYR ONE (23:38)
[2021-02-23 23:48] LABS: Basophils % 0.8 % (0-1.3); Hematocrit 34.6 % (39.6-49.0); Lymphocytes % 26.1 % (15.3-44.8); MPV 10.1 fL (7.6-11.3)
[2021-02-24 00:02] LABS: ALT/SGPT 79 U/L (12-78); AST/SGOT 52 U/L (15-37); Albumin 3.8 g/dL (3.4-5.0); Alkaline Phosphatase 128 U/L (45-117); BUN Blood Urea Nitrogen 17 mg/dL (7-18); Bicarbonate 26 mmol/L (21-32); Bilirubin Direct < 0.1 mg/dL (0-0.2); Bilirubin Total 0.3 mg/dL (0.2-1.0); Glucose Level 113 mg/dL (74-106); Lipase 70 U/L (73-393); Potassium 3.9 mmol/L (3.5-5.1); Sodium Level 141 mmol/L (136-145)
--- NOTE | 2021-02-24 04:29 | ER ---
Nurse's Notes [facility] Name: Taiwo Chery Age: 60 yrs Sex: Male : 1960 Arrival Date: 02/23/2021 Time: 21:36 Bed 16 Private MD: Diagnosis: Flank Pain;Low Back Pain Presentation: 02/23 21:52 Chief complaint: Spouse and/or significant other states: R lower back pain x 1 year, ca1 has gotten worse for the past week. Hasn't slept well in days, hurts to walk and today he c/o numbness on the R leg. Took Ibuprofen 800 mg, Baclofen and Muscle relaxers at 1800 tonight, little relief. Coronavirus screen: Client denies travel out of the [place] in the last 14 days. At this time, the client does not indicate any symptoms associated with coronavirus-19. Ebola Screen: Patient negative for fever greater than or equal to 101.5 degrees Fahrenheit, and additional compatible Ebola Virus Disease symptoms Patient denies exposure to infectious person. Patient denies travel to an Ebola-affected area in the 21 days before illness onset. No symptoms or risks identified at this time. Initial Sepsis Screen: Does the patient meet any 2 criteria? No. Patient's initial sepsis screen is negative. Does the patient have a suspected source of infection? No. Patient's initial sepsis screen is negative. Risk Assessment: Do you want to hurt yourself or someone else? Patient reports no desire to harm self or others. Onset of symptoms was February 23, 2021. 21:52 Method Of Arrival: Wheelchair ca1 21:52 Acuity: LEONARD 4 ca1 Historical: - Allergies: 21:55 NKDA; ca1 - Home Meds: 02/24 02:23 pantoprazole Oral [Active]; Metformin Oral [Active]; Enalapril Oral [Active]; Depakote sf Oral [Active]; aspirin 81 mg Oral chew 1 tab once daily [Active]; - PMHx: 02/23 21:55 Anxiety; colon cancer; Headaches; Diabetes - NIDDM; Hyperlipidemia; Hypertension; TIA; ca1 - PSHx: 21:55 colon surgery; Colon Resection; ca1 - Immunization history:: Flu vaccine is up to date. - Social history:: Smoking status: Patient denies any tobacco usage or history of. Screenin:48 Abuse screen: Denies threats or abuse. Nutritional screening: No deficits noted. ea Tuberculosis screening: No symptoms or risk factors identified. Fall Risk None identified. Assessment: 22:59 General: Appears uncomfortable, Behavior is appropriate for age. Pain: Complains of ea pain in right leg. Neuro: Level of Consciousness is awake, alert, obeys commands, Oriented to person, place, time. Cardiovascular: Patient's skin is warm and dry. Respiratory: Airway is patent Respiratory effort is even, unlabored, Respiratory pattern is regular, symmetrical. Derm: Skin is pink, warm \T\ dry. 02/24 00:25 Reassessment: Patient and/or family updated on plan of care and expected duration. Pain ea level reassessed. Patient is alert, oriented x 3, equal unlabored respirations, skin warm/dry/pink. Pt taken to CT. 01:13 Reassessment: Patient and/or family updated on plan of care and expected duration. Pain ea level reassessed. Patient is alert, oriented x 3, equal unlabored respirations, skin warm/dry/pink. 02:19 Reassessment: Patient appears in no apparent distress at this time. Patient and/or sf family updated on plan of care and expected duration. Pain level reassessed. Patient sleeping. 03:32 Reassessment: Patient appears in no apparent distress at this time. Patient and/or sf family updated on plan of care and expected duration. Pain level reassessed. Patient is alert, oriented x 3, equal unlabored respirations, skin warm/dry/pink. Vital Signs: 02/23 21:07 BP 106 / 65; Pulse 73; Resp 16; Pulse Ox 95% ; sf 21:52 BP 126 / 67; Pulse 61; Resp 16; Temp 97.7(TE); Pulse Ox 99% on R/A; Weight 108.86 kg; ca1 Height 5 ft. 4 in. (162.56 cm) (R); Pain 10/10; 22:00 BP 116 / 71; Pulse 75; Resp 16; Pulse Ox 96% ; sf 23:43 BP 111 / 57; Pulse 53; Resp 16; Pulse Ox 97% ; sf 02/24 00:00 BP 109 / 76; Pulse 54; Resp 16; Pulse Ox 97% ; sf 02:02 BP 137 / 58; Pulse 56; Resp 16; Pulse Ox 99% ; sf 03:00 BP 114 / 78; Pulse 63; Resp 16; Pulse Ox 99% ; sf 04:00 BP 122 / 83; Pulse 50; Resp 16; Pulse Ox 99% ; sf 02/23 21:52 Body Mass Index 41.20 (108.86 kg, 162.56 cm) ca1 ED Course: 02/23 21:36 Patient arrived in ED. bp1 21:54 Triage completed. ca1 21:55 Arm band placed on right wrist. ca1 22:48 Priscilla Howard RN is Primary Nurse. ea 22:48 Titi Juárez MD is Attending Physician. [facility] 22:49 Patient has correct armband on for positive identification. Bed in low position. Call ea light in reach. Side rails up X2. 23:33 Inserted saline lock: 20 gauge in left antecubital area, using aseptic technique. Blood ea collected. 02/24 00:42 CT Abd/Pelvis - IV Contrast Only Sent. sf 00:53 CT Abd/Pelvis - IV Contrast Only In Process Unspecified. EDMS 03:30 Urine collected: clean catch specimen, clear, Amount Voided: 400mL. sf 04:46 No provider procedures requiring assistance completed. IV discontinued, intact, sf bleeding controlled, No redness/swelling at site. Pressure dressing applied. Administered Medications: 02/23 23:31 Drug: morphine 4 mg Route: IVP; Site: left antecubital; ea 02/24 02:00 Follow up: Response: No adverse reaction; Pain is decreased sf 02/23 23:31 Drug: Zofran (Ondansetron) 4 mg Route: IVP; Site: left antecubital; ea 02/24 02:00 Follow up: Response: No adverse reaction; Pain is decreased sf Output: 03:30 Urine: 400ml (Voided); Total: 400ml. sf Outcome: 04:28 Discharge ordered by . [facility] 04:46 Discharged to home ambulatory, with family. sf 04:46 Condition: stable 04:46 Discharge instructions given to patient, family, Instructed on discharge instructions, follow up and referral plans. Demonstrated understanding of instructions, follow-up care. 04:47 Patient left the ED. sf Signatures: Dispatcher [employer] EDMS Priscilla Howard RN RN ea Acob, Cheryl, RN RN [facility] PaniaImani cabrera Maurice, MD MD mh7 Casa Henley, RN RN sf
--- NOTE | 2021-02-24 04:29 | EDPHYS ---
Physician Documentation [facility] Name: Taiwo Chery Age: 60 yrs Sex: Male : 1960 Arrival Date: 02/23/2021 Time: 21:36 Bed 16 Private MD: ED Physician Titi Juárez HPI: 02/24 00:10 This 60 yrs old Male presents to ER via Wheelchair with complaints of Back mh7 Pain, Leg Pain. 00:10 The patient presents with pain that is chronic, with no known mechanism of injury. The mh7 symptoms are located in the low back, right flank. Onset: The symptoms/episode began/occurred 3 week(s) ago, overall for more than 1 year. Location: right leg and right lower abdomen. Associated signs and symptoms: Pertinent positives: numbness, tingling, to right lower extremity, for years, Pertinent negatives: chest pain, constipation, dysuria, fever, headache, hematuria, incontinence, nausea, urinary retention, vomiting, weakness. The problem was sustained from unknown cause. Modifying factors: The patient symptoms are alleviated by nothing, the patient symptoms are aggravated by movement, walking. Severity of symptoms: At their worst the symptoms were moderate, 5 day(s) ago, in the emergency department the symptoms are unchanged. The patient has experienced similar episodes in the past, chronically. Historical: - Allergies: 02/23 21:55 NKDA; ca1 - Home Meds: 02/24 02:23 pantoprazole Oral [Active]; Metformin Oral [Active]; Enalapril Oral [Active]; Depakote sf Oral [Active]; aspirin 81 mg Oral chew 1 tab once daily [Active]; - PMHx: 02/23 21:55 Anxiety; colon cancer; Headaches; Diabetes - NIDDM; Hyperlipidemia; Hypertension; TIA; ca1 - PSHx: 21:55 colon surgery; Colon Resection; ca1 - Immunization history:: Flu vaccine is up to date. - Social history:: Smoking status: Patient denies any tobacco usage or history of. ROS: 02/24 00:10 Constitutional: Negative for fever, chills, and weight loss, Eyes: Negative for injury, mh7 pain, redness, and discharge, ENT: Negative for injury, pain, and discharge, Neck: Negative for injury, pain, and swelling, Cardiovascular: Negative for chest pain, palpitations, and edema, Respiratory: Negative for shortness of breath, cough, wheezing, and pleuritic chest pain, : Negative for injury, bleeding, discharge, and swelling, Skin: Negative for injury, rash, and discoloration. Psych: Negative for depression, anxiety, suicide ideation, homicidal ideation, and hallucinations, Allergy/Immunology: Negative for hives, rash, and allergies, Endocrine: Negative for neck swelling, polydipsia, polyuria, polyphagia, and marked weight changes, Hematologic/Lymphatic: Negative for swollen nodes, abnormal bleeding, and unusual bruising. Neuro: Negative for seizure activity, speech changes, syncope, near syncope, weakness. Exam: 00:10 Constitutional: This is a well developed, well nourished patient who is awake, alert, mh7 and in no acute distress. Head/Face: Normocephalic, atraumatic. Eyes: Pupils equal round and reactive to light, extra-ocular motions intact. Lids and lashes normal. Conjunctiva and sclera are non-icteric and not injected. Cornea within normal limits. Periorbital areas with no swelling, redness, or edema. Neck: Trachea midline, no thyromegaly or masses palpated, and no cervical lymphadenopathy. Supple, full range of motion without nuchal rigidity, or vertebral point tenderness. No Meningismus. Chest/axilla: Normal chest wall appearance and motion. Nontender with no deformity. No lesions are appreciated. Cardiovascular: Regular rate and rhythm with a normal S1 and S2. No gallops, murmurs, or rubs. Normal PMI, no JVD. No pulse deficits. Respiratory: Lungs have equal breath sounds bilaterally, clear to auscultation and percussion. No rales, rhonchi or wheezes noted. No increased work of breathing, no retractions or nasal flaring. 00:10 Skin: Warm, dry with normal turgor. Normal color with no rashes, no lesions, and no evidence of cellulitis. MS/ Extremity: Pulses equal, no cyanosis. Neurovascular intact. Full, normal range of motion. Neuro: Awake and alert, GCS 15, oriented to person, place, time, and situation. Cranial nerves II-XII grossly intact. Motor strength 5/5 in all extremities. Sensory grossly intact. Cerebellar exam normal. Normal gait. Psych: Awake, alert, with orientation to person, place and time. Behavior, mood, and affect are within normal limits. 00:10 Abdomen/GI: Inspection: obese Bowel sounds: normal, in all quadrants, Palpation: mild abdominal tenderness, in the right lower quadrant, mass, is not appreciated, rebound tenderness, is not appreciated, voluntary guarding, is not appreciated, involuntary guarding, is not appreciated, no appreciated organomegaly, Rectal exam: the exam is deferred, because of patient request, Indicators: McBurney's point is not tender, Ghosh's sign is negative, Rovsing's sign is negative, Obturator sign is negative, Psoas sign is negative, Liver: no appreciated palpable abnormalities, Hernia: not appreciated. 00:10 Back: ROM is painful, with all movement, normal spinal alignment noted, CVA tenderness, that is moderate, is noted on the right, vertebral tenderness, is appreciated at lumbar, muscle spasm, is appreciated in the lumbar, Straight leg raises: pain bilaterally. Vital Signs: 02/23 21:07 BP 106 / 65; Pulse 73; Resp 16; Pulse Ox 95% ; sf 21:52 BP 126 / 67; Pulse 61; Resp 16; Temp 97.7(TE); Pulse Ox 99% on R/A; Weight 108.86 kg; ca1 Height 5 ft. 4 in. (162.56 cm) (R); Pain 10/10; 22:00 BP 116 / 71; Pulse 75; Resp 16; Pulse Ox 96% ; sf 23:43 BP 111 / 57; Pulse 53; Resp 16; Pulse Ox 97% ; sf 02/24 00:00 BP 109 / 76; Pulse 54; Resp 16; Pulse Ox 97% ; sf 02:02 BP 137 / 58; Pulse 56; Resp 16; Pulse Ox 99% ; sf 03:00 BP 114 / 78; Pulse 63; Resp 16; Pulse Ox 99% ; sf 04:00 BP 122 / 83; Pulse 50; Resp 16; Pulse Ox 99% ; sf 02/23 21:52 Body Mass Index 41.20 (108.86 kg, 162.56 cm) ca1 MDM: 04:24 Differential diagnosis: chronic back pain, Osteoarthritis Osteoporosis Pyelonephritis. [facility] Data reviewed: vital signs, nurses notes, lab test result(s), CBC, electrolytes, urinalysis, EKG, radiologic studies, CT scan. Data interpreted: Pulse oximetry: on room air is 99 %. Interpretation: normal. Counseling: I had a detailed discussion with the patient and/or guardian regarding: the historical points, exam findings, and any diagnostic results supporting the discharge/admit diagnosis, lab results, radiology results, the need for outpatient follow up, to return to the emergency department if symptoms worsen or persist or if there are any questions or concerns that arise at home. Response to treatment: the patient's symptoms have resolved after treatment, the patient's blood pressure is in an acceptable range, mental status has returned to baseline, the patient no longer shows bradycardia, the patient is not short of breath, the patient is not tachycardic, the patient's pain is gone, the patient's temperature has normalized. 04:28 Patient medically screened. [facility] 02/23 23:17 Order name: Basic Metabolic Panel [facility] 02/23 23:17 Order name: CBC with Diff [facility] 02/23 23:17 Order name: Hepatic Function [facility] 02/23 23:17 Order name: Lipase [facility] 02/23 23:17 Order name: Basic Metabolic Panel; Complete Time: 00:09 [facility] 02/23 23:17 Order name: Liver (Hepatic) Function; Complete Time: 00:09 [facility] 02/23 23:17 Order name: IV Saline Lock; Complete Time: 23:35 [facility] 02/23 23:17 Order name: Labs collected and sent; Complete Time: 23:34 [facility] 02/23 23:17 Order name: Urine Dipstick-Ancillary (obtain specimen); Complete Time: 03:33 [facility] 02/23 23:17 Order name: Lipase; Complete Time: 00:09 [facility] 02/23 23:18 Order name: CBC with Automated Diff; Complete Time: 00:09 [facility] 02/24 00:10 Order name: CT Abd/Pelvis - IV Contrast Only [facility] Administered Medications: 02/23 23:31 Drug: morphine 4 mg Route: IVP; Site: left antecubital; ea 02/24 02:00 Follow up: Response: No adverse reaction; Pain is decreased sf 02/23 23:31 Drug: Zofran (Ondansetron) 4 mg Route: IVP; Site: left antecubital; ea 02/24 02:00 Follow up: Response: No adverse reaction; Pain is decreased sf Disposition: 02/24/21 04:28 Discharged to Home. Impression: Flank Pain, Low Back Pain. - Condition is Stable. - Discharge Instructions: Chronic Back Pain, Back Pain, Adult, [id number], Flank Pain, [id number]. - Medication Reconciliation Form, Thank You Letter, Antibiotic Education, Prescription Opioid Use form. - Follow up: Private Physician; When: 1 - 2 days; Reason: Worsening of condition, Recheck today's complaints, Continuance of care, Re-evaluation by your physician. - Problem is an ongoing problem. - Symptoms have improved. Signatures: Dispatcher [employer] EDMS Priscilla Howard RN RN Stephanie Blackwell RN Titi Evans MD MD 7 Casa Henley RN RN sf Corrections: (The following items were deleted from the chart) 04:47 04:28 02/24/2021 04:28 Discharged to Home. Impression: Flank Pain; Low Back Pain. sf Condition is Stable. Forms are Medication Reconciliation Form, Thank You Letter, Antibiotic Education, Prescription Opioid Use. Follow up: Private Physician; When: 1 - 2 days; Reason: Worsening of condition, Recheck today's complaints, Continuance of care, Re-evaluation by your physician. Problem is an ongoing problem. Symptoms have improved. mh7
[2021-02-24 04:54] VITALS: TEMP 97.7
[2021-02-24 05:00] VITALS: O2SAT 99
[2021-02-24 05:03] VITALS: BP 122/83
--- NOTE | 2021-02-24 22:29 | RAD REPORT ---
EXAM DESCRIPTION: CT - Abdomen Pelvis W Contrast - 02/24/2021 6:41 am COMPARISON: CT abdomen pelvis December 12, 2020 CLINICAL HISTORY: [facility] Flank pain;Abd pain TECHNIQUE: CT of the abdomen and pelvis was acquired with IV contrast material. Coronal and sagitt al reconstructions were obtained. Automated exposure control was utilized on this examination as a dose lowering technique. FINDINGS: Lung bases: Mild left basilar atelectasis. Liver: Mildly enlarged measuring 17.5 cm midclavicular line with steatosis. Gallbladder and biliary: Normal gallbladder. Unremarkable biliary tree. Pancreas: Normal. Spleen: Normal. Adrenal glands: Normal adrenal glands. Kidneys: Minimal bilateral nonspecific perinephric stranding is present. There are a few small bilate ral renal cysts. Stomach and Small Bowel: The stomach and small bowel are normal. Urinary bladder: Normal. Prostate/Male Urogenital: Normal. Colon and Appendix: Surgical changes of the distal colon. No evidence of appendicitis. Retroperitoneum and lymph nodes: Normal. Vascular: Normal. Peritoneal cavity: No ascites or free air. Musculoskeletal and soft tissues: Small fat-containing left inguinal hernia. No aggressive bone lesio ns. No compression fracture. IMPRESSION: 1. No acute intra-abdominal abnormality. 2. Mild hepatomegaly with steatosis. 3. Mild bilateral nonspecific perinephric stranding is present and unchanged from December. Electronically signed by: Juan Culp MD 02/24/2021 1:07 AM CDT Due to temporary technical issues with the PACS/Fluency reporting system, reports are being signed by the in house radiologists without review as a courtesy to insure prompt reporting. The interpreting radiologist is fully responsible for the content of the report.
[2021-02-28 16:51] LABS: Urine Blood NEGATIVE (Negative); Urine Glucose NEGATIVE (Negative); Urine Protein NEGATIVE (Negative); Urine Specific Gravity 1.025 (1.005-1.030); Urine pH 5.5 (5.0-7.0)
== END 2021-02-24 04:47 | disposition home or self-care (01) ==
LOC: ER 21:34
DX: M54.5 Low back pain (principal); R10.9 Unspecified abdominal pain; F41.9 Anxiety disorder, unspecified; Z85.038 Personal history of other malignant neoplasm of large intestine; E11.9 Type 2 diabetes mellitus without complications; E78.5 Hyperlipidemia, unspecified; I10 Essential (primary) hypertension; Z86.73 Personal history of transient ischemic attack (TIA), and cerebral infarction without residual deficits
CPT/HCPCS: 85025; 80048; 36415; 80076; 83690; 74177; 96375; 96374; 99284; Q9967; J2405; 81003

== ENCOUNTER 2021-04-05 09:31 | Emergency (ER) | payer OTHER ==
--- OUTSIDE RECORDS SUMMARY | 2021-04-05 09:34 | XMS REPORT | Continuity of Care Document ---
:1960 Author Organization [facility] t Address [address] [place] [address] Care Team Providers Name Role Phone Singer CARDOSO Attending Clinician Aliya HENSON, R Attending Clinician Doctor Unassigned, Name Attending Clinician Unavailable Chandler HENSON Attending Clinician Payers Payer Name Policy Type Policy Number Effective Date Expiration Date S ource Problems This patient has no known problems. Allergies, Adverse Reactions, Alerts Allergy Allergy Status Severity Reaction(s) Onset Inactive Treating Comm ents Source Name Type Date Date Clinician No Known DA Active U 2018- [facility] Allergie 2-19 Nik s 00:00: d 00 [facility] Medications This patient has no known medications. Procedures This patient has no known procedures. Encounters Start End Encounter Admission Attending Care Care Encounter Source Date/Time Date/Time Type Type Clinicians Facility Department ID 2021-02-28 2021-02-28 Emergency Singer [facility] [id number] 19:00:00 20:05:00 Raul Capps 350.1.13.10 [place] 4.2.7.2.686 [place] [id number] 2020-10-10 2020-10-10 Emergency E MHBL MHBL [id number] MHBL 13:09:00 13:09:00 2020-06-28 2020-06-28 Emergency Aliya CTHANNA [id number] 14:56:00 17:04:00 Keanu Capps 350.1.13.10 [place] 4.2.7.2.686 [place] [id number] 2020-06-28 2020-06-28 Orders Doctor DEEPIKA [id number] 00:00:00 00:00:00 Only Unassigned, DESTINY 350.1.13.10 [place] [id number] 2020-03-20 2020-03-20 Emergency Chandler [facility] [id number] 18:31:57 20:18:00 Errol Capps 350.1.13.10 [place] [id number] [place] [id number] [id number] Results Test Description Test Time Test Comments Results Result [facility] e Comments - XR FLUOROSCOPY 2019-01-14 Name: RACHAEL BEARD 0-60 MIN 10:27:00 DAVID Sharp : 1960 Age/S: 58 / M [id number] Unit #: [id number] Loc: [place] [address] Phys: Kevin Rollins MD Acct: [id number] Dis Date: Status: [facility] PHONE #: [phone] Exam Date: 01/14/2019 0910 FAX #: Reason: PORT A CATH PLACEMENT EXAMS: CPT: [id number] XR FLUOROSCOPY 0-60 MIN 56267 Fluoro Time: 8 SEC DAP (Gy m2): [...] BEARDland : 1960 Age/S: 58 / M [id number] Unit #: [id number] Loc: [place] [address] Phys: Kevin Rollins MD Acct: [id number] Dis Date: Status: REG [facility] PHONE #: [phone] Exam Date: 01/14/2019 0910 FAX #: Reason: PORT A CATH PLACEMENT EXAMS: CPT: [id number] XR FLUOROSCOPY 0-60 MIN 64780 Fluoro Time: 8 SEC DAP (Gy m2): Air Kerma (mGy): <Continued> Technologist: Sandy Lucero, RT(R)(CT); Mary Carbajal RT(R) Trnneb Date/Time: 01/14/2019 (0047) [id number] Orig Print D/T: S: 01/14/2019 (8835) PAGE 2 Signed Report GLUCOSE BEDSIDE TESTING 2019-01-14 10:17:00 Test Item Value Reference Range Interpretation Comme nts GLUCOSE BEDSIDE TESTING (test code = GLUBED) 140 mg/dL 70-110 H - XR CHEST 1 [id number] 10:04:00 Name: RACHAEL BEARD Donie : 1960 Age/S: 58 / M [id number] Unit #: [id number] Loc: [place] [address] Phys: Kevin Rollins MD Acct: [id number] Dis Date: Status: [facility] PHONE #: [phone] Exam Date: 01/14/2019 0955 FAX #: Reason: port placement EXAMS: CPT: [id number] XR CHEST 1 V 38669 Fluoro Time: DAP (Gy m2): Air Kerma [...] PAGE 1 Signed Report Name: RACHAEL BEARD Donie : 1960 Age/S: 58 / M [id number] Unit #: [id number] Loc: [place] [address] Phys: Kevin Rollins MD Acct: [id number] Dis Date: Status: REG [facility] PHONE #: [phone] ExamDate: 01/14/2019 0945 FAX #: Reason: port placement EXAMS: CPT: [id number] XR CHEST 1 V 47248 Fluoro Time: DAP (Gy m2): Air Kerma (mGy): <Continued> Technologist: Rachael Izquierdo, RT(R)(CT); Verenice Carbajal RT(R) Trnsc Date/Time: 01/14/2019 (1004) [id number] Orig Print D/T: S: 01/14/2019 (1007) PAGE 2 Signed ReportGLUCOSE BEDSIDE TESTING 2019-01-14 07:20:00 Test Item Value Reference Range Interpretation Comments GLUCOSE BEDSIDE TESTING (test code 137 mg/dL 70-110 H = GLUBED) [id number] 16:52:00 RUN DATE: 01/06/19 [facility] - LAB *LIVE* PAGE 1 RUN TIME: 165 Specimen Inquiry RUN USER: INTERFACE PATIENT: RACHAEL BEARD LOC: Francia U #: [id number] AGE/SX: 58/M ROOM: [facility] RE12/31/18[facility] DR: Kevin Rollins MD : 64 BED: 1 DIS: 01/02/19 STATUS: DIS IN TLOC: SPEC #: [id number] RECD: 01/01/19 STATUS: MARCIA REFredi #: [id number] ONELIA: 12/31/[address] [facility] [address]: Kevin Rollins MD ENTERED: 01/01/19 SP TYPE: SURG OTHR DR: Shamar Abreu ORDERED: SURG PATH LVL 6 COPIES TO: Shamar Abreu [address] [place] [address] [place] [id number] [facility] [address], [place] [address] HISTOLOGY: TISSUE ID BLK PCS CESAR LEV PROCEDURE DISPOSITION ____ ___ ___ ___ SIGMOID COLON A 1-15 1 PROCEDURES: SURG PATH LVL 6 (01/01/19-915) TISSUES: A. SIGMOID COLON - SIGMOID COLON AND ANASTOMATIC COLON RINGS CLINICAL HISTORY COLON RECTAL CANCER -C18.9 CPT CODES CPT CODE(S): 14040 , , , , , , FINAL DIAGNOSIS Colon, sigmoid, anastomotic donuts, partial colectomy: MODERATELY DIFFERENTIATED COLORECTAL ADENOCARCINOMA, 6 CM GREATEST DIMENSION 7 LYMPH NODES POSITIVE FOR METASTATIC CARCINOMA (7/10) MARGINS NEGATIVE CONTINUED ON NEXT PAGE RUN DATE: 01/06/19 [facility] - LAB *LIVE* PAGE 2 RUN TIME: 1652 Specimen Inquiry RUN USER: INTERFACE SPEC #: [id number] PATIENT: RACHAEL BEARD #[id number] (Continued) GROSS DESCRIPTION Sigmoid colon and anastomotic [...] A3 Entire circumference of distal margin A4-A5 Java Security Architect sections of the lesion A6 Tumor with normal mucosa of proximal margin A7 Tumor with normal mucosa of closest distal margin A8 Normal mucosa A9 Java Security Architect sections of largest anastomotic ring A10 Java Security Architect sections of second anastomotic ring A11 Java Security Architect sections of mesentery A12-A14 Java Security Architect sections of mesentery with possible matted lymph nodes A15-A20 Entire lymph nodes, one lymph node each A21 Two lymph nodes A22 Two lymph nodes, serially [id number] Three lymph nodes Grossing performed at [facility] Pathology, [address] [place] [address]. Seed Yeast Operator: Hany Haji M.D. MICROSCOPIC DESCRIPTION Sigmoid colon [...] Center - LAB *LIVE* PAGE 3 RUNTIME: 474 Specimen Inquiry RUN USER: INTERFACE SPEC #: [id number] PATIENT: RACHAEL BEARD #[id number] (Continued) MICROSCOPIC DESCRIPTION (Continued) demonstrates moderately differentiated [...] Regional lymph nodes: pN2b Signed SIGNATURE ON Bull Gruber Sarahi 01/06/19 165 END OF REPORT GLUCOSE BEDSIDE [id number] 17:20:00 Test Item Value Reference Range Interpretation Comments GLUCOSE BEDSIDE TESTING (test code 103 mg/dL 70-110 N = GLUBED) GLUCOSE BEDSIDE [id number] 11:28:00 Test Item Value Reference Range Interpretation Comments GLUCOSE BEDSIDE TESTING (test code = 87 mg/dL 70-110 N GLUBED) GLUCOSE BEDSIDE [id number] 07:23:00 Test Item Value Reference Range Interpretation Comments GLUCOSE BEDSIDE TESTING (test code 108 mg/dL 70-110 N = GLUBED) GLUCOSE BEDSIDE [id number] 20:29:00 Test Item Value Reference Range Interpretation Comments GLUCOSE BEDSIDE TESTING (test code = 99 mg/dL 70-110 N GLUBED) GLUCOSE BEDSIDE [id number] 16:28:00 Test Item Value Reference Range Interpretation Comments GLUCOSE BEDSIDE TESTING (test code = 84 mg/dL 70-110 N GLUBED) GLUCOSE BEDSIDE [id number] 11:30:00 Test Item Value Reference Range Interpretation Comments GLUCOSE BEDSIDE TESTING (test code 106 mg/dL 70-110 N = GLUBED) GLUCOSE BEDSIDE [id number] 07:38:00 Test Item Value Reference Range Interpretation Comments GLUCOSE BEDSIDE TESTING (test code 120 mg/dL 70-110 H = GLUBED) CBC W/AUTO [id number] 06:24:00 Test Item Value Reference Range Interpretation [...] = NO DIFF/SCN CRITERIA MDIFF) GLUCOSE BEDSIDE [id number] 21:45:00 Test Item Value Reference Range Interpretation Comments GLUCOSE BEDSIDE TESTING (test code 135 mg/dL 70-110 H = GLUBED) BASIC METABOLIC [id number] 18:20:00 Test Item Value Reference Range Interpretation [...] code = CA) 8.1 MG/DL 8.5-10.1 L [id number] 18:20:00 Test Item Value Reference Range Interpretation Comments PHOSPHOROUS (test code = PHOS) 3.2 MG/DL 2.5-4.9 N [id number] 18:20:00 Test Item Value Reference Range Interpretation Comments MAGNESIUM (test code = MAG) 1.7 MG/DL 1.8-2.4 L GLUCOSE BEDSIDE [id number] 16:54:00 Test Item Value Reference Range Interpretation Comments GLUCOSE BEDSIDE TESTING (test code 160 mg/dL 70-110 H = GLUBED) GLUCOSE BEDSIDE [id number] 14:29:00 Test Item Value Reference Range Interpretation Comments GLUCOSE BEDSIDE TESTING (test code 136 mg/dL 70-110 H = GLUBED) GLUCOSE BEDSIDE [id number] 07:31:00 Test Item Value Reference Range Interpretation Comments GLUCOSE BEDSIDE TESTING (test code 125 mg/dL 70-110 H = GLUBED)
[2021-04-05] MEDS ORDERED: ONDANSETRON 4 MG/2 ML VIAL ONE (10:29)
[2021-04-05] MEDS ORDERED: HYDROMORPHONE HCL 2 MG/ML inj ONE (10:29)
[2021-04-05 10:49] LABS: BUN Blood Urea Nitrogen 18 mg/dL (7-18); Bicarbonate 25 mmol/L (21-32); Glucose Level 97 mg/dL (74-106); Potassium 3.9 mmol/L (3.5-5.1); Sodium Level 141 mmol/L (136-145)
[2021-04-05] MEDS ORDERED: dexAMETHasone 10 MG/ML VIAL ONE (12:36)
[2021-04-05] MEDS ORDERED: KETOROLAC 30 MG/ML INJ ONE (12:36)
[2021-04-05] MEDS ORDERED: NA CHLORIDE 0.9% 1,000 ML ONE (12:36)
[2021-04-05] MEDS ORDERED: DIAZEPAM 10 MG/2 ML INJ SYRINGE ONE (12:36)
--- NOTE | 2021-04-05 13:31 | EDPHYS ---
Physician Documentation [facility] Name: Taiwo Chery Age: 60 yrs Sex: Male : 1960 Arrival Date: 04/05/2021 Time: 09:34 Bed 13 Private MD: Franki Rabago ED Physician Errol Montez HPI: 04/05 09:44 This 60 yrs old Male presents to ER via Wheelchair with complaints of Back jmm Pain. 09:44 The patient presents with pain that is chronic. The symptoms are located in the low jmm back. Onset: The symptoms/episode began/occurred 4 month(s) ago. The pain radiates to the right leg. Associated signs and symptoms: Pertinent negatives: abdominal pain, chest pain, constipation, dysuria, fever, hematuria, incontinence, nausea, numbness, tingling, urinary retention, vomiting, weakness. Modifying factors: The patient symptoms are alleviated by narcotic pain medication. This is a 60 year old male with a history of colon cancer, DM, HLP that presents to the ED with complaints of ongoing lower back pain worsening since initial onset this past November. states the patient has been to multiple ER's, theyre pcp, pain management. Recently visited with neuro surgery whom stated he needed an MRI with contrast prior to evaluation for surgery. Patient awoke today with increased pain. . Historical: - Allergies: 09:44 NKDA; sv - PMHx: 09:44 Anxiety; colon cancer; Diabetes - NIDDM; Headaches; Hyperlipidemia; Hypertension; TIA; sv - PSHx: 09:44 colon surgery; Colon Resection; sv - Immunization history:: Client reports receiving the 2nd dose of the Covid vaccine, Client reports receiving the 1st dose of the Covid vaccine. - Social history:: Smoking status: Patient denies any tobacco usage or history of. ROS: 09:44 Constitutional: Negative for fever, chills, and weight loss, Cardiovascular: Negative jmm for chest pain, palpitations, and edema, Respiratory: Negative for shortness of breath, cough, wheezing, and pleuritic chest pain. 09:44 Back: Positive for pain with movement. 09:44 MS/extremity: Positive for pain. 09:44 All other systems are negative. Exam: 09:44 Head/Face: atraumatic. Eyes: EOMI, no conjunctival erythema appreciated ENT: Moist [facility] Mucus Membranes Neck: Trachea midline, Supple Chest/axilla: Normal chest wall appearance and motion. Cardiovascular: Regular rate and rhythm. No edema appreciated Respiratory: Normal respirations, no respiratory distress appreciated Abdomen/GI: Non distended, soft Skin: General appearance color normal 09:44 MS/ Extremity: Moves all extremities, no obvious deformities appreciated, no edema noted to the lower extremities Psych: Behavior is normal, Mood is normal, Patient is cooperative and pleasant 09:44 Constitutional: The patient appears alert, awake, in obvious pain. 09:44 Back: ROM is painful. 09:44 Neuro: Orientation: is normal, Mentation: is normal, Memory: is normal. 09:44 Psych: Behavior/mood is pleasant, cooperative. Vital Signs: 09:42 Weight 108.86 kg; Height 5 ft. 4 in. (162.56 cm); Pain 10/10; sv 10:00 BP 132 / 67; Pulse 74; Pulse Ox 100% on R/A; Pain 10/10; ap3 10:23 BP 118 / 84 Sitting (auto/reg); Pulse 71; Pulse Ox 99% on R/A; mb4 11:12 BP 113 / 79 LA Sitting (auto/reg); Pulse 69 MON; Pulse Ox 100% on R/A; mb4 11:52 BP 97 / 75 LA Sitting (auto/reg); Pulse 68; Pulse Ox 99% on R/A; mb4 12:00 BP 113 / 83; Pulse 64; Resp 18; Pulse Ox 98% on R/A; vg1 13:12 BP 111 / 68; Pulse 67; Pulse Ox 99% on R/A; mb4 09:42 Body Mass Index 41.20 (108.86 kg, 162.56 cm) sv MDM: 09:44 Patient medically screened. [facility] 13:28 Data reviewed: vital signs, nurses notes. Counseling: I had a detailed discussion with enedina the patient and/or guardian regarding: the historical points, exam findings, and any diagnostic results supporting the discharge/admit diagnosis, lab results, the need for outpatient follow up, to return to the emergency department if symptoms worsen or persist or if there are any questions or concerns that arise at home. ED course: Pain decreased in the ED. Will follow up with neuro surgery for further evaluation. I do not currently suspect cauda equina. Patient advised to follow up with pcp and otherwise given strict return precautions. Patient understood and agrees with the plan of care. . 04/05 10:04 Order name: BMP; Complete Time: 10:59 jmm 04/05 10:04 Order name: Saline Lock; Complete Time: 10:20 jmm Administered Medications: 10:18 Drug: Zofran (Ondansetron) 4 mg Route: IVP; Site: right antecubital; vg1 11:24 Follow up: Response: No adverse reaction; Nausea is decreased vg1 10:20 Drug: Dilaudid (HYDROmorphone) 1 mg {Note: rass 0.} Route: IVP; Site: right antecubital;vg1 11:24 Follow up: Response: No adverse reaction; Pain is decreased vg1 12:06 CANCELLED (Physician Discretion): Valium (diazepam) 5 mg IVP once vg1 12:15 Drug: Decadron - Dexamethasone 10 mg Route: IVP; Site: right antecubital; vg1 13:24 Follow up: Response: No adverse reaction vg1 12:15 Drug: NS 0.9% 1000 ml Route: IV; Rate: 1 bolus; Site: right antecubital; vg1 13:23 Follow up: IV Status: Completed infusion; IV Intake: 1000ml vg1 12:17 Drug: Ketorolac 15 mg Route: IVP; Site: right antecubital; vg1 13:24 Follow up: Response: No adverse reaction; Pain is decreased vg1 12:19 Drug: Valium (diazepam) 2 mg Route: IVP; Site: right antecubital; vg1 13:24 Follow up: Response: No adverse reaction vg1 Disposition: 15:49 Co-signature as Attending Physician, Errol Montez MD I agree with the assessment and kdr plan of care. Disposition: 04/05/21 13:30 Discharged to Home. Impression: Sciatica, right side. - Condition is Stable. - Discharge Instructions: Sciatica. - Medication Reconciliation Form, Thank You Letter, Antibiotic Education, Prescription Opioid Use, Family Work Release form. - Follow up: Private Physician; When: 1 - 2 days; Reason: Recheck today's complaints, Continuance of care, Re-evaluation by your physician. Signatures: Dispatcher [employer] Gretchen Kelly RN RN Errol Crews MD MD kdr Mickail, Joel, PA PA jmm Garcia, Victoria, RN RN vg1 Corrections: (The following items were deleted from the chart) 12:06 11:53 Valium (diazepam) 5 mg IVP once ordered. enedina vg1 13:47 13:30 04/05/2021 13:30 Discharged to Home. Impression: Sciatica, right side. Condition vg1 is Stable. Forms are Medication Reconciliation Form, Thank You Letter, Antibiotic Education, Prescription Opioid Use. Follow up: Private Physician; When: 1 - 2 days; Reason: Recheck today's complaints, Continuance of care, Re-evaluation by your physician. enedina
--- NOTE | 2021-04-05 13:31 | ER ---
Nurse's Notes [facility] Name: Taiwo Chery Age: 60 yrs Sex: Male : 1960 Arrival Date: 04/05/2021 Time: 09:34 Bed 13 Private MD: Franki Rabago Diagnosis: Sciatica, right side Presentation: 04/05 09:42 Chief complaint: sister states that he has been having back pain for months and has sv been seeing a pain management MD for injections. Denies urinary symptoms, fever. Coronavirus screen: Client denies travel out of the [place] in the last 14 days. At this time, the client does not indicate any symptoms associated with coronavirus-19. Ebola Screen: No symptoms or risks identified at this time. Risk Assessment: Do you want to hurt yourself or someone else? Patient reports no desire to harm self or others. Onset of symptoms was 2020. 09:42 Method Of Arrival: Wheelchair sv 09:42 Acuity: LEONARD 3 sv 10:03 Initial Sepsis Screen: Does the patient meet any 2 criteria? No. Patient's initial ap3 sepsis screen is negative. Does the patient have a suspected source of infection? No. Patient's initial sepsis screen is negative. Triage Assessment: 10:03 General: Appears uncomfortable, well developed, Behavior is cooperative, restless. sv Pain: Complains of pain in back. Neuro: Level of Consciousness is awake, alert, obeys commands, Oriented to person, place, time, situation. Respiratory: Respiratory effort is even, unlabored. Historical: - Allergies: 09:44 NKDA; sv - PMHx: 09:44 Anxiety; colon cancer; Diabetes - NIDDM; Headaches; Hyperlipidemia; Hypertension; TIA; sv - PSHx: 09:44 colon surgery; Colon Resection; sv - Immunization history:: Client reports receiving the 2nd dose of the Covid vaccine, Client reports receiving the 1st dose of the Covid vaccine. - Social history:: Smoking status: Patient denies any tobacco usage or history of. Screenin:02 Abuse screen: Denies threats or abuse. Nutritional screening: No deficits noted. ap3 Tuberculosis screening: No symptoms or risk factors identified. Fall Risk Fall in past 12 months (25 points). Secondary diagnosis (15 points) impaired mobility, IV access (20 points). Ambulatory Aid- Crutches/Cane/Walker (15 pts). Gait- Weak (10 pts.). Mental Status- Oriented to own ability (0 pts). Total Brooks Fall Scale indicates High Risk Score (45 or more points). Fall prevention measures have been instituted. Side Rails Up X 2 Frequent Obs/Assessments Occuring Family Present and informed to notify staff if the need to leave the bedside As available patient and family educated on Fall Prevention Program and Strategies. Assessment: 10:00 General: Appears uncomfortable, obese, Behavior is crying, restless. Pain: Complains of ap3 pain in right mid back and right low back Pain radiates to right gluteal fold and right hamstring Pain currently is 10 out of 10 on a pain scale. Quality of pain is described as aching, pressure, radiating, sharp, Pain began months ago Alleviated by medications, Aggravated by exercise, increased activity, repositioning, weight bearing, Noted to be grimacing, moaning. Neuro: Level of Consciousness is awake, alert, obeys commands, Oriented to person, place, time, situation. Cardiovascular: Capillary refill < 3 seconds. Respiratory: Airway is patent Respiratory effort is even, unlabored, Respiratory pattern is regular, symmetrical. GI: No signs and/or symptoms were reported involving the gastrointestinal system. : No signs and/or symptoms were reported regarding the genitourinary system. EENT: No signs and/or symptoms were reported regarding the EENT system. Derm: No signs and/or symptoms reported regarding the dermatologic system. 10:22 Reassessment: Patient appears in no apparent distress at this time. No changes from vg1 previously documented assessment. Patient and/or family updated on plan of care and expected duration. Pain level reassessed. Patient is alert, oriented x 3, equal unlabored respirations, skin warm/dry/pink. 11:25 Reassessment: Patient appears in no apparent distress at this time. No changes from vg1 previously documented assessment. Patient and/or family updated on plan of care and expected duration. Pain level reassessed. Patient is alert, oriented x 3, equal unlabored respirations, skin warm/dry/pink. Pt states pain has decreased from 10/10 to 6/10. 12:26 Reassessment: Patient appears in no apparent distress at this time. Patient and/or vg1 family updated on plan of care and expected duration. Pain level reassessed. Patient is alert, oriented x 3, equal unlabored respirations, skin warm/dry/pink. 13:24 Reassessment: Patient appears in no apparent distress at this time. Patient and/or vg1 family updated on plan of care and expected duration. Pain level reassessed. Patient is alert, oriented x 3, equal unlabored respirations, skin warm/dry/pink. Vital Signs: 09:42 Weight 108.86 kg; Height 5 ft. 4 in. (162.56 cm); Pain 10/10; sv 10:00 BP 132 / 67; Pulse 74; Pulse Ox 100% on R/A; Pain 10/10; ap3 10:23 BP 118 / 84 Sitting (auto/reg); Pulse 71; Pulse Ox 99% on R/A; mb4 11:12 BP 113 / 79 LA Sitting (auto/reg); Pulse 69 MON; Pulse Ox 100% on R/A; mb4 11:52 BP 97 / 75 LA Sitting (auto/reg); Pulse 68; Pulse Ox 99% on R/A; mb4 12:00 BP 113 / 83; Pulse 64; Resp 18; Pulse Ox 98% on R/A; vg1 13:12 BP 111 / 68; Pulse 67; Pulse Ox 99% on R/A; mb4 09:42 Body Mass Index 41.20 (108.86 kg, 162.56 cm) sv ED Course: 09:34 Patient arrived in ED. mr 09:35 Franki Rabago DO is Private Physician. mr 09:40 Meaghan Harper, LELE is Primary Nurse. ap3 09:43 Hua Villegas PA is PHCP. jmm 09:43 Errol Montez MD is Attending Physician. jmm 09:44 Triage completed. sv 09:44 Arm band placed on. sv 10:03 Patient has correct armband on for positive identification. Bed in low position. Side ap3 rails up X 1. Side rails up X2. Adult w/ patient. Pulse ox on. NIBP on. Door closed. Noise minimized. 10:20 Inserted saline lock: 20 gauge in right antecubital area, using aseptic technique. ld1 Blood collected. 10:23 Primary Nurse role handed off by Meaghan Harper, LELE vg1 10:23 Kurt, Erin, RN is Primary Nurse. vg1 13:47 No provider procedures requiring assistance completed. IV discontinued, intact, vg1 bleeding controlled, No redness/swelling at site. Pressure dressing applied. Administered Medications: 10:18 Drug: Zofran (Ondansetron) 4 mg Route: IVP; Site: right antecubital; vg1 11:24 Follow up: Response: No adverse reaction; Nausea is decreased vg1 10:20 Drug: Dilaudid (HYDROmorphone) 1 mg {Note: rass 0.} Route: IVP; Site: right antecubital;vg1 11:24 Follow up: Response: No adverse reaction; Pain is decreased vg1 12:06 CANCELLED (Physician Discretion): Valium (diazepam) 5 mg IVP once vg1 12:15 Drug: Decadron - Dexamethasone 10 mg Route: IVP; Site: right antecubital; vg1 13:24 Follow up: Response: No adverse reaction vg1 12:15 Drug: NS 0.9% 1000 ml Route: IV; Rate: 1 bolus; Site: right antecubital; vg1 13:23 Follow up: IV Status: Completed infusion; IV Intake: 1000ml vg1 12:17 Drug: Ketorolac 15 mg Route: IVP; Site: right antecubital; vg1 13:24 Follow up: Response: No adverse reaction; Pain is decreased vg1 12:19 Drug: Valium (diazepam) 2 mg Route: IVP; Site: right antecubital; vg1 13:24 Follow up: Response: No adverse reaction vg1 Intake: 13:23 IV: 1000ml; Total: 1000ml. vg1 Outcome: 13:30 Discharge ordered by . enedina 13:47 Discharged to home ambulatory, with family. vg1 13:47 Condition: stable 13:47 Discharge instructions given to patient, Instructed on discharge instructions, follow up and referral plans. Demonstrated understanding of instructions, follow-up care. 13:47 Patient left the ED. vg1 Signatures: Gretchen West RN Hua Díaz PA PA jmm Rosa GimenezMeaghan RN RN ap3 Poonam Zelaya mb4 Erin Hicks RN RN vg1 Daniela Anderson RN RN ld1 Corrections: (The following items were deleted from the chart) :13 11:12 BP 153 / 70 Sitting Auto L Arm Regular; Pulse 69bpm; Monitor; Pulse Ox 100% RA; mb4 mb4
[2021-04-05 14:01] VITALS: BP 111/68; O2SAT 99
== END 2021-04-05 13:47 | disposition home or self-care (01) ==
LOC: ER 09:31
DX: M54.31 Sciatica, right side (principal); I10 Essential (primary) hypertension
CPT/HCPCS: 96361; 80048; 36415; 96375; 96374; 99284; J3360; J1170; J1100; J7030; J2405

== ENCOUNTER 2021-09-17 10:43 | Emergency (ER) | payer OTHER ==
--- NOTE | 2021-09-17 11:32 | RAD REPORT ---
EXAM DESCRIPTION: CT - Stone Protocol - 09/17/2021 11:20 am CLINICAL HISTORY: Hematuria COMPARISON: February 2021 TECHNIQUE: Computed axial tomography of the abdomen pelvis was obtained without oral or IV contrast. Lack of IV and oral contrast limits evaluation of solid organs, bowel, and vessels. Coronal reformat sabrina images were obtained and reviewed. All CT scans are performed using dose optimization technique as appropriate and may include automated exposure control or mA/KV adjustment according to patient size. FINDINGS: A renal calculus is not seen. An ureteral calculus is not noted. A bladder calculus is not present. Fatty liver The Spleen, pancreas and adrenals appear grossly normal There is no evidence of diverticulitis. The appendix appears normal Small umbilical hernia. Small left inguinal hernia IMPRESSION: Negative for a genitourinary calculus
[2021-09-17 11:37] LABS: Urine Bacteria 20-50 /HPF (NONE SEEN); Urine RBC >50 /HPF (NONE SEEN)
[2021-09-17 11:43] LABS: Absolute Lymphocytes (CBC) 1.5 K/uL (0.7-4.9); Basophils % 0.5 % (0-1.3); Hematocrit 40.3 % (39.6-49.0); Lymphocytes % 11.5 % (15.3-44.8); MPV 9.8 fL (7.6-11.3); RBC Red Blood Cell Count 4.65 M/uL (4.33-5.43)
[2021-09-17 11:44] LABS: Potassium 3.9 mmol/L (3.5-5.1)
[2021-09-17] MEDS ORDERED: CEFTRIAXONE 1000 MG/VIAL ONE (12:07)
[2021-09-17] MEDS ORDERED: ONDANSETRON 4 MG/2 ML VIAL ONE (12:07)
[2021-09-17] MEDS ORDERED: FENTANYL CITR 100 MCG/2 ML ONE (12:07)
--- NOTE | 2021-09-17 12:20 | EDPHYS ---
Physician Documentation [facility] Name: Taiwo Chery Age: 61 yrs Sex: Male : 1960 Arrival Date: 09/17/2021 Time: 10:48 Bed 19 Private MD: ED Physician Regan Rabago HPI: 09/17 13:00 This 61 yrs old Male presents to ER via Wheelchair with complaints of Urinary kb Problem - blood. 13:00 The patient presents with urinary symptoms, dysuria, hematuria. Onset: The kb symptoms/episode began/occurred yesterday. Modifying factors: The symptoms are alleviated by nothing, the symptoms are aggravated by nothing. Associated signs and symptoms: Pertinent positives: dysuria, hematuria, Pertinent negatives: abdominal pain, constipation, diarrhea, fever, nausea, vomiting. Severity of symptoms: At their worst the symptoms were moderate, in the emergency department the symptoms are unchanged. The patient has experienced similar episodes in the past, a few times. The patient has not recently seen a physician. reports pt has chronic back pain that has been worse over the last week. Reports he developed hematuria and dysuria last night. . Historical: - Allergies: 11:06 NKDA; iw - Home Meds: 11:06 enalapril maleate 20 mg Oral tab 1 tab once daily [Active]; simvastatin 40 mg Oral tab iw 1 tab once daily [Active]; gabapentin 600 mg oral tab 3 times per day [Active]; metformin 1,000 mg Oral tab 1 tab 2 times per day [Active]; Wellbutrin 150 mg Oral tab daily [Active]; metoprolol tartrate 50 mg Oral tab [Active]; - PMHx: 11:06 Anxiety; colon cancer; Diabetes - NIDDM; Headaches; Hyperlipidemia; Hypertension; TIA; iw - PSHx: 11:07 colon resection; iw - Immunization history:: Client reports receiving the 2nd dose of the Covid vaccine. - Social history:: Smoking status: Patient denies any tobacco usage or history of. ROS: 13:02 Constitutional: Negative for fever, chills, and weight loss. kb 13:02 Back: Positive for pain at rest, pain with movement, of the low back area. 13:02 : Positive for urinary symptoms, hematuria, burning with urination. 13:02 All other systems are negative. Exam: 13:02 Constitutional: This is a well developed, well nourished patient who is awake, alert, kb and in no acute distress. Head/Face: Normocephalic, atraumatic. ENT: Moist Mucous membranes Cardiovascular: Regular rate and rhythm with a normal S1 and S2. No gallops, murmurs, or rubs. No pulse deficits. Respiratory: Respirations even and unlabored. No increased work of breathing, no retractions or nasal flaring. Abdomen/GI: Soft, non-tender. No distention Skin: Warm, dry with normal turgor. Normal color. MS/ Extremity: Pulses equal, no cyanosis. Neurovascular intact. Full, normal range of motion. Neuro: Awake and alert, GCS 15, oriented to person, place, time, and situation. Moves all extremities. Normal gait. Psych: Awake, alert, with orientation to person, place and time. Behavior, mood, and affect are within normal limits. 13:02 Back: pain, that is moderate, of the low back area, ROM is normal, normal spinal alignment noted. Vital Signs: 11:03 BP 114 / 66; Pulse 90; Resp 18 S; Temp 98.6; Pulse Ox 97% on R/A; Weight 113.4 kg; iw Height 5 ft. 4 in. (162.56 cm); 12:00 BP 104 / 63; Pulse 76; Resp 16; Temp 98.5; Pulse Ox 97% on R/A; sl2 11:03 Body Mass Index 42.91 (113.40 kg, 162.56 cm) iw MDM: 10:55 Patient medically screened. kb 12:57 Data reviewed: vital signs, nurses notes. Data interpreted: Pulse oximetry: on room air kb is 97 %. Interpretation: normal. Counseling: I had a detailed discussion with the patient and/or guardian regarding: the historical points, exam findings, and any diagnostic results supporting the discharge/admit diagnosis, lab results, radiology results, the need for outpatient follow up, a family practitioner, to return to the emergency department if symptoms worsen or persist or if there are any questions or concerns that arise at home. 09/17 11:00 Order name: Basic Metabolic Panel; Complete Time: 11:47 kb 09/17 11:00 Order name: CBC with Diff; Complete Time: 11:44 kb 09/17 11:00 Order name: CT Stone Protocol; Complete Time: 11:34 kb 09/17 11:00 Order name: Urine Microscopic Only; Complete Time: 11:44 kb 09/17 11:38 Order name: Urine Culture [facility] 09/17 11:00 Order name: IV Saline Lock; Complete Time: 11:25 kb 09/17 11:00 Order name: Labs collected and sent; Complete Time: 11:25 kb 09/17 11:00 Order name: Urine Dipstick-Ancillary (obtain specimen); Complete Time: 11:25 kb Administered Medications: 12:08 Drug: Rocephin (cefTRIAXone) 1 grams Route: IV; Rate: calculated rate; Site: left sl2 antecubital; 13:02 Follow up: Response: No adverse reaction; IV Status: Completed infusion; IV Intake: [id number] 12:13 Drug: Zofran (Ondansetron) 4 mg Route: IVP; Site: left antecubital; sl2 12:30 Follow up: Response: No adverse reaction sl2 12:16 Drug: fentaNYL (PF) 50 mcg Route: IVP; Site: left antecubital; sl2 12:30 Follow up: Response: No adverse reaction; Pain is decreased sl2 Disposition: 09/18 09:08 Co-signature as Attending Physician, Regan Rabago MD I agree with the assessment and sp3 plan of care. Disposition Summary: 09/17/21 12:19 Discharge Ordered Location: Home kb Condition: Stable kb Diagnosis - UTI/ Urinary tract infection, site not specified kb Followup: kb - With: Emergency Department - When: As needed - Reason: Worsening of condition Followup: kb - With: Private Physician - When: 2 - 3 days - Reason: Recheck today's complaints, Continuance of care, Re-evaluation by your physician Discharge Instructions: - Discharge Summary Sheet kb - Urinary Tract Infection, Adult, [id number] kb Forms: - Medication Reconciliation Form kb - Thank You Letter kb - Antibiotic Education kb - Prescription Opioid Use kb - Family Work Release bd Prescriptions: - cefpodoxime 100 mg Oral Tablet - take 1 tablet by ORAL route every 12 hours for 10 days take with food; 20 kb tablet; Refills: 0, Product Selection Permitted Signatures: Dispatcher [employer] EDMary Burden, NATIVIDAD-C NATIVIDAD-Aisha Scott RN RN iw Patel, Setul, MD MD sp3 Sasha Braswell RN RN sl2 Corrections: (The following items were deleted from the chart) 09/17 11:35 11:22 URINALYSIS+U.LAB.BRZ ordered. EDMS EDMS
--- NOTE | 2021-09-17 12:20 | ER ---
Nurse's Notes [facility] Name: Taiwo Chery Age: 61 yrs Sex: Male : 1960 Arrival Date: 09/17/2021 Time: 10:48 Bed 19 Private MD: Diagnosis: UTI/ Urinary tract infection, site not specified Presentation: 09/17 11:03 Chief complaint: Spouse and/or significant other states: c/o low back pain and blood in iw urine over the weekend, has been on abx for UTI since Sep 05, had bright red blood with clots in urine , hx of colon cancer. Coronavirus screen: At this time, the client does not indicate any symptoms associated with coronavirus-19. Ebola Screen: Patient negative for fever greater than or equal to 101.5 degrees Fahrenheit, and additional compatible Ebola Virus Disease symptoms Patient denies exposure to infectious person. Patient denies travel to an Ebola-affected area in the 21 days before illness onset. No symptoms or risks identified at this time. Initial Sepsis Screen: Does the patient meet any 2 criteria? No. Patient's initial sepsis screen is negative. Does the patient have a suspected source of infection? No. Patient's initial sepsis screen is negative. Risk Assessment: Do you want to hurt yourself or someone else? Patient reports no desire to harm self or others. Onset of symptoms was September 15, 2021. 11:03 Method Of Arrival: Wheelchair iw 11:03 Acuity: LEONARD 3 iw Historical: - Allergies: 11:06 NKDA; iw - Home Meds: 11:06 enalapril maleate 20 mg Oral tab 1 tab once daily [Active]; simvastatin 40 mg Oral tab iw 1 tab once daily [Active]; gabapentin 600 mg oral tab 3 times per day [Active]; metformin 1,000 mg Oral tab 1 tab 2 times per day [Active]; Wellbutrin 150 mg Oral tab daily [Active]; metoprolol tartrate 50 mg Oral tab [Active]; - PMHx: 11:06 Anxiety; colon cancer; Diabetes - NIDDM; Headaches; Hyperlipidemia; Hypertension; TIA; iw - PSHx: 11:07 colon resection; iw - Immunization history:: Client reports receiving the 2nd dose of the Covid vaccine. - Social history:: Smoking status: Patient denies any tobacco usage or history of. Screenin:15 Abuse screen: Denies threats or abuse. Nutritional screening: No deficits noted. sl2 Tuberculosis screening: No symptoms or risk factors identified. Fall Risk None identified. No fall in past 12 months (0 pts). No secondary diagnosis (0 pts). IV access (20 points). Ambulatory Aid- Crutches/Cane/Walker (15 pts). Gait- Impaired (20 pts.). Mental Status- Oriented to own ability (0 pts). Total Brooks Fall Scale indicates Low Risk Score (25-44 pts). Fall prevention measures have been instituted. Side Rails Up X 2 Placed close to Nursing Station Frequent Obs/Assesments occuring Family Present and informed to notify staff if they need to leave bedside As available Patient and Family Educated on Fall Prevention Program and strategies. Assessment: 11:15 General: Appears uncomfortable, obese, well groomed, well developed, Behavior is calm, sl2 cooperative, appropriate for age, Reports Lower back pain. 11:15 Pain: Complains of pain in Lower back Pain radiates to Lower abdomen Pain currently is sl2 8 out of 10 on a pain scale. at worst was 10 out of 10 on a pain scale. level that patient reports is acceptable is 2 out of 10 on a pain scale. Quality of pain is described as burning, sharp, Pain began gradually, Is continuous, Alleviated by repositioning, relaxation. Neuro: No deficits noted. Level of Consciousness is awake, alert, obeys commands, Oriented to person, place, time, situation, Appropriate for age Hris Manager are equal bilaterally Moves all extremities. Cardiovascular: No deficits noted. Respiratory: No deficits noted. Airway is patent Trachea midline Respiratory effort is even, unlabored, Respiratory pattern is regular, symmetrical, Breath sounds are clear bilaterally. GI: No deficits noted. No signs and/or symptoms were reported involving the gastrointestinal system. : Reports burning with urination, pain in lower back urgency, since 09/15/21 urinary frequency, hematuria. EENT: No deficits noted. No signs and/or symptoms were reported regarding the EENT system. Derm: No deficits noted. No signs and/or symptoms reported regarding the dermatologic system. Musculoskeletal: No deficits noted. No signs and/or symptoms reported regarding the musculoskeletal system. Vital Signs: 11:03 BP 114 / 66; Pulse 90; Resp 18 S; Temp 98.6; Pulse Ox 97% on R/A; Weight 113.4 kg; iw Height 5 ft. 4 in. (162.56 cm); 12:00 BP 104 / 63; Pulse 76; Resp 16; Temp 98.5; Pulse Ox 97% on R/A; sl2 11:03 Body Mass Index 42.91 (113.40 kg, 162.56 cm) iw ED Course: 10:48 Patient arrived in ED. am2 10:55 [facility] Sparks [facility]C [facility] kb 10:55 Regan Rabago MD is Attending Physician. kb 11:06 Triage completed. iw 11:07 Arm band placed on. iw 11:08 Inserted saline lock: 20 gauge in left antecubital area, using aseptic technique. Blood sl2 collected. 11:[address] via wheelchair. sl2 11:15 Patient has correct armband on for positive identification. Placed in gown. Bed in low sl2 position. Call light in reach. Side rails up X2. Adult w/ patient. 11:15 No provider procedures requiring assistance completed. sl2 11:19 CT Stone Protocol In Process Unspecified. EDMS 11:23 Sasha Braswell, RN is Primary Nurse. sl2 11:[address] from [address]. sl2 12:43 IV discontinued, intact, bleeding controlled, No redness/swelling at site. Pressure sl2 dressing applied. Administered Medications: 12:08 Drug: Rocephin (cefTRIAXone) 1 grams Route: IV; Rate: calculated rate; Site: left sl2 antecubital; 13:02 Follow up: Response: No adverse reaction; IV Status: Completed infusion; IV Intake: [id number] 12:13 Drug: Zofran (Ondansetron) 4 mg Route: IVP; Site: left antecubital; sl2 12:30 Follow up: Response: No adverse reaction sl2 12:16 Drug: fentaNYL (PF) 50 mcg Route: IVP; Site: left antecubital; sl2 12:30 Follow up: Response: No adverse reaction; Pain is decreased sl2 Intake: 13:02 IV: 50ml; Total: 50ml. sl2 Outcome: 12:19 Discharge ordered by . kb 12:42 Discharged to home via wheelchair, with family, , Mayur Oquendo sl2 12:42 Condition: stable 12:42 Discharge instructions given to patient, family, Instructed on discharge instructions, follow up and referral plans. no drinking with medication, medication usage, Demonstrated understanding of instructions, follow-up care, medications, Prescriptions given X 1. 13:00 Patient left the ED. sl2 Addendum: 09/21/2021 08:09 Addendum: Culture Results: Phone call Attempt #1 Called patient. No answer. Left VM. s s Will give culture report to ED director to send certified mail. Signatures: Dispatcher [employer] EDMS Mary Sparks, DEAN OF ADMISSIONS-C DEAN OF ADMISSIONS-Ckb Aisha Rand, RN RN iw Nellie Kelly RN RN ss Moreno, Amanda am2 Landell, Sophia RN RN sl2 Corrections: (The following items were deleted from the chart) 09/17 11:11 11:03 Pulse 90bpm; Resp 18bpm; Spontaneous; Pulse Ox 97% RA; Temp 98.6F; 113.4 kg; iw Height 5 ft. 4 in.; BMI: 42.9; iw
[2021-09-17 13:31] VITALS: O2SAT 97
[2021-09-17 13:33] VITALS: BP 104/63; TEMP 98.5
--- OUTSIDE RECORDS SUMMARY | 2021-09-22 16:20 | XMS REPORT | Continuity of Care Document ---
:1960 Author Organization [facility] t Address [address] [place] [address] Care Team Providers Name Role Phone Elkins Attending Clinician Roxie ANDERSON Attending Clinician Unavailable Kiran Medina Attending Clinician Kiran GORDON Attending Clinician Unavailable Doctor Unassigned, Name Attending Clinician Unavailable Aron HENSON Attending Clinician ARON Attending Clinician Unavailable Roxie ANDERSON Admitting Clinician Unavailable Payers Payer Name Policy Type Policy Number Effective Date Expiration Date [facility] [id number] 2019 CHOICE 00:00:00 Problems This patient has no known problems. Allergies, Adverse Reactions, Alerts Allergy Allergy Status Severity Reaction(s) Onset Inactive Treating Comm ents Source Name Type Date Date Clinician No Known DA Active U 2018-0 [facility] 2-19 [facility] NO KNOWN Drug Active Univers ALLERGIE Class ity of S [facility] Medications This patient has no known medications. Procedures This patient has no known procedures. Encounters Start End Encounter Admission Attending Care Care Encounter Source Date/Time Date/Time Type Type Clinicians Facility Department ID 2021-04-17 2021-04-17 Emergency E [facility] [address] [facility] 12:26:00 12:26:00 2021-02-28 2021-02-28 [facility] [id number] 19:00:00 20:05:00 Raul Capps 350.1.13.10 [place] 4.2.7.2.686 [place] [id number] 2021-02-28 2021-02-28 Emergency X [facility] ERT [id number] Univers 18:54:00 18:54:00 ity [facility] 2020-11-12 2020-11-12 Emergency X JUSTIN, [facility] ERT [id number] Univers 10:27:00 13:27:00 JERROD ity [facility] 2020-11-12 2020-11-12 Emergency X JUSTIN, [facility] ERT [id number] Univers 10:27:00 10:27:00 JERROD ity [facility] 2020-10-10 2020-10-10 Emergency E [facility] 7500 [facility] 13:09:00 13:09:00 2020-06-28 2020-06-28 [facility] [id number] 14:56:00 17:04:00 Rafia Capps 350.1.13.10 [place] 4.2.7.2.686 [place] [id number] 084 2020-06-28 2020-06-28 [facility] [id number] Univers 14:56:00 14:56:00 RAFIA [facility] 2020-06-28 2020-06-28 Orders Doctor POE [id number] 00:00:00 00:00:00 Only Unassigned, DESTINY 350.1.13.10 [place] [facility] 4.2.7.2.686 [id number] 2020-03-20 2020-03-20 [facility] [id number] 18:31:57 20:18:00 Errol Capps 350.1.13.10 [place] 4.2.7.2.686 [place] [id number] 2020-03-20 2020-03-20 [facility] ERT [id number] Univers 18:31:57 18:31:57 ERROL oviedo [facility] Results Test Description Test Time Test Comments Results Result [facility] e Comments - XR FLUOROSCOPY 2019-01-14 Name: RACHAEL BEARD 0-60 MIN 10:27:00 DAVID Sharp : 1960 Age/S: 58 / M [id number] Unit #: [id number] Loc: [place] [address] Phys: Kevin Rollins MD Acct: [id number] Dis Date: Status: [facility] PHONE #: [phone] Exam Date: 01/14/2019 0910 FAX #: Reason: PORT A CATH PLACEMENT EXAMS: CPT: [id number] XR FLUOROSCOPY 0-60 MIN 47797 Fluoro Time: 8 SEC DAP (Gy m2): [...] BEARD : 1960 Age/S: 58 / M [address] Unit #: [id number] Loc: [place] [address] Phys: Kevin Rollins MD Acct: [id number] Dis Date: Status: [facility] [place]ONE #: [phone] Exam Date: 01/14/2019 0910 FAX #: Reason: PORT A CATH PLACEMENT EXAMS: CPT: [id number] XR FLUOROSCOPY 0-60 MIN 87786 Fluoro Time: 8 SEC DAP (Gy m2): Air Kerma (mGy): <Continued> Technologist: Sandy Lucero, RT(R)(CT); Mary Carbajal RT(R) Trnscb Date/Time: 01/14/2019 (1027) [id number] Orig Print D/T: S: 01/14/2019 (1037) PAGE 2 Signed Report GLUCOSE BEDSIDE TESTING 2019-01-14 10:17:00 Test Item Value Reference Range Interpretation Comme nts GLUCOSE BEDSIDE TESTING (test code = GLUBED) 140 mg/dL 70-110 H - XR CHEST 1 [id number] 10:04:00 Name: RACHAEL BEARD : 1960 Age/S: 58 / M [address] Unit #: [id number] Loc: [place] [address] Phys: Kevin Rollins MD Acct: [id number] Dis Date: Status: [facility] [place]ONE #: [phone] Exam Date: 01/14/2019954 FAX #: Reason: port placement EXAMS: CPT: [id number] XR CHEST 1 V 91534 Fluoro Time: DAP (Gy m2): Air Kerma [...] BEARD : 1960 Age/S: 58 / M [address] Unit #: [id number] Loc: [place] [address] Phys: Kevin Rollins MD Acct: [id number] Dis Date: Status: [facility] PHONE #: [phone] ExamDate: 01/14/2019 0955 FAX #: Reason: port placement EXAMS: CPT: [id number] XR CHEST 1 V 39147 Fluoro Time: DAP (Gy m2): Air Kerma (mGy): <Continued> Technologist: Rachael Izquierdo, RT(R)(CT); Verenice Carbajal RT(R) Trnscb Date/Time: 01/14/2019 (1004) [id number] Orig Print D/T: S: 01/14/2019 (1007) PAGE 2 Signed ReportGLUCOSE BEDSIDE TESTING 2019-01-14 07:20:00 Test Item Value Reference Range Interpretation Comments GLUCOSE BEDSIDE TESTING (test code 137 mg/dL 70-110 H = GLUBED) [id number] 16:52:00 RUN DATE: 01/06/19 [facility] - LAB *LIVE* PAGE 1 RUN TIME: 1652 Specimen Inquiry RUN USER: INTERFACE PATIENT: RACHAEL BEARD LOC: Francia U #: [id number] AGE/SX: 58/M ROOM: [facility] RE12/31/18REG DR: Kevin Rollins MD : 64 BED: 1 DIS: 01/02/19 STATUS: DIS IN TLOC: SPEC #: [id number] RECD: 01/01/19 STATUS: MARCIA REQ #: [id number] ONELIA: 12/31/[address]: Kevin Rollins MD ENTERED: 01/01/19 SP TYPE: SURG OTHR DR: Shamar Abreu ORDERED: SURG PATH LVL 6 COPIES TO: Shamar Abreu [address] [place] [address] [place] [address] [facility] [address], [place] [address] HISTOLOGY: TISSUE ID BLK PCS CESAR LEV PROCEDURE DISPOSITION ____ ___ ___ ___ SIGMOID COLON A 1-15 1 PROCEDURES: SURG PATH LVL 6 (01/01/19) TISSUES: A. SIGMOID COLON - SIGMOID COLON AND ANASTOMATIC COLON RINGS CLINICAL HISTORY COLON RECTAL CANCER -C18.9 CPT CODES CPT CODE(S): 78451 , , , , , , FINAL DIAGNOSIS Colon, sigmoid, anastomotic donuts, partial colectomy: MODERATELY DIFFERENTIATED COLORECTAL ADENOCARCINOMA, 6 CM GREATEST DIMENSION 7 LYMPH NODES POSITIVE FOR METASTATIC CARCINOMA (7/10) MARGINS NEGATIVE CONTINUED ON NEXT PAGE RUN DATE: 01/06/19 [facility] - LAB *LIVE* PAGE 2 RUN TIME: 1652 Specimen Inquiry RUN USER: INTERFACE SPEC #: [facility]:[id number] PATIENT: RACHAEL BEARD #[id number] (Continued) GROSS DESCRIPTION Sigmoid colon and anastomotic [...] A3 Entire circumference of distal margin A4-A5 Propellant Assembler sections of the lesion A6 Tumor with normal mucosa of proximal margin A7 Tumor with normal mucosa of closest distal margin A8 Normal mucosa A9 Propellant Assembler sections of largest anastomotic ring A10 Propellant Assembler sections of second anastomotic ring A11 Propellant Assembler sections of mesentery A12-A14 Propellant Assembler sections of mesentery with possible matted lymph nodes A15-A20 Entire lymph nodes, one lymph node each A21 Two lymph nodes A22 Two lymph nodes, serially [id number] Three lymph nodes Grossing performed at [facility] Pathology, [address] [place] [address], [place] [address]. Transformation Specialist: Hany Haji M.D. MICROSCOPIC DESCRIPTION Sigmoid colon [...] CONTINUED ON NEXT PAGE RUN DATE: 01/06/19 [facility] - LAB *LIVE* PAGE 3 RUNTIME: 179 Specimen Inquiry RUN USER: INTERFACE SPEC #: [facility]:[id number] PATIENT: RACHAEL BEARD #[id number] (Continued) MICROSCOPIC DESCRIPTION (Continued) demonstrates moderately differentiated [...] nodes: pN2b Signed SIGNATURE ON Bull Gruber 01/06/19 1652 END OF REPORT GLUCOSE BEDSIDE [id number] 17:20:00 Test Item Value Reference Range Interpretation Comments GLUCOSE BEDSIDE TESTING (test code 103 mg/dL 70-110 N = GLUBED) GLUCOSE BEDSIDE [id number] 11:28:00 Test Item Value Reference Range Interpretation Comments GLUCOSE BEDSIDE TESTING (test code = 87 mg/dL 70-110 N GLUBED) GLUCOSE BEDSIDE [id number] 07:23:00 Test Item Value Reference Range Interpretation Comments GLUCOSE BEDSIDE TESTING (test code 108 mg/dL 70-110 N = GLUBED) GLUCOSE BEDSIDE [id number] 20:29:00 Test Item Value Reference Range Interpretation Comments GLUCOSE BEDSIDE TESTING (test code = 99 mg/dL 70-110 N GLUBED) GLUCOSE BEDSIDE [id number] 16:28:00 Test Item Value Reference Range Interpretation Comments GLUCOSE BEDSIDE TESTING (test code = 84 mg/dL 70-110 N GLUBED) GLUCOSE BEDSIDE [id number] 11:30:00 Test Item Value Reference Range Interpretation Comments GLUCOSE BEDSIDE TESTING (test code 106 mg/dL 70-110 N = GLUBED) GLUCOSE BEDSIDE [id number] 07:38:00 Test Item Value Reference Range Interpretation Comments GLUCOSE BEDSIDE TESTING (test code 120 mg/dL 70-110 H = GLUBED) CBC W/AUTO [id number] 06:24:00 Test Item Value Reference Range Interpretation [...] = NO DIFF/SCN CRITERIA MDIFF) GLUCOSE BEDSIDE [id number] 21:45:00 Test Item Value Reference Range Interpretation Comments GLUCOSE BEDSIDE TESTING (test code 135 mg/dL 70-110 H = GLUBED) BASIC METABOLIC [id number] 18:20:00 Test Item Value Reference Range Interpretation [...] code = CA) 8.1 MG/DL 8.5-10.1 L [id number] 18:20:00 Test Item Value Reference Range Interpretation Comments PHOSPHOROUS (test code = PHOS) 3.2 MG/DL 2.5-4.9 N [id number] 18:20:00 Test Item Value Reference Range Interpretation Comments MAGNESIUM (test code = MAG) 1.7 MG/DL 1.8-2.4 L GLUCOSE BEDSIDE [id number] 16:54:00 Test Item Value Reference Range Interpretation Comments GLUCOSE BEDSIDE TESTING (test code 160 mg/dL 70-110 H = GLUBED) GLUCOSE BEDSIDE [id number] 14:29:00 Test Item Value Reference Range Interpretation Comments GLUCOSE BEDSIDE TESTING (test code 136 mg/dL 70-110 H = GLUBED) GLUCOSE BEDSIDE [id number] 07:31:00 Test Item Value Reference Range Interpretation Comments GLUCOSE BEDSIDE TESTING (test code 125 mg/dL 70-110 H = GLUBED)
== END 2021-09-17 13:00 | disposition home or self-care (01) ==
LOC: ER 10:43
DX: N39.0 Urinary tract infection, site not specified (principal); I10 Essential (primary) hypertension; E11.9 Type 2 diabetes mellitus without complications; F41.9 Anxiety disorder, unspecified; Z85.038 Personal history of other malignant neoplasm of large intestine
CPT/HCPCS: 96365; 87088; 85025; 87086; 80048; 36415; 87077; 87186; 81015; 76377; 74176; 96375; 99284; J3010; J2405

== ENCOUNTER 2021-10-23 15:39 | Emergency (ER) | payer OTHER ==
--- OUTSIDE RECORDS SUMMARY | 2021-10-23 15:43 | XMS REPORT | Continuity of Care Document ---
:1960 Author Organization [facility] t Address [address] [place] [address] Care Team Providers Name Role Phone CHATO ULLOA Attending Clinician Unavailable Singer CARDOSO Attending Clinician Roxie ANDERSON Attending Clinician Unavailable VINCE AVILA Attending Clinician Unavailable Kiran Medina Attending Clinician Kiran GORDON Attending Clinician Unavailable Doctor Unassigned, Name Attending Clinician Unavailable Aron HENSON Attending Clinician ARON Attending Clinician Unavailable Roxie ANDERSON Admitting Clinician Unavailable Payers Payer Name Policy Type Policy Number Effective Date Expiration Date [facility] 1932 2019 CHOICE 00:00:00 Problems This patient has no known problems. Allergies, Adverse Reactions, Alerts Allergy Allergy Status Severity Reaction(s) Onset Inactive Treating Comm ents Source Name Type Date Date Clinician No Known DA Active U 2019-0 [facility] Allergie 2-19 [place] [facility] 00:00: d 00 [facility] NO KNOWN Drug Active Univers ALLERGIE Class ity of S [facility] Medications This patient has no known medications. Procedures This patient has no known procedures. Encounters Start End Encounter Admission Attending Care Care Encounter Source Date/Time Date/Time Type Type Clinicians Facility Department ID 2021-10-16 2021-10-16 [id number] 2021-04-17 2021-04-17 Emergency E ULLOA, [facility] [address] [facility] 12:26:00 20:09:00 MICAH 2021-02-28 2021-02-28 Emergency Elkins, [facility] [id number] 19:00:00 20:05:00 Raul Capps 350.1.13.10 [place] 4.2.7.2.686 [place] [id number] [id number] 2021-02-28 2021-02-28 Emergency X [facility] ERT [id number] 22 Univers 18:54:00 18:54:00 ity [facility] 2020-11-12 2020-11-12 [facility] [id number] Univers 10:27:00 13:27:00 JERROD ity [facility] 2020-11-12 2020-11-12 Emergency X JUSTIN, [facility] ERT [id number] Univers 10:27:00 10:27:00 JERROD y [facility] 2020-10-10 2020-10-10 Emergency E AUST[place], [facility] [address] 13:09:00 19:20:00 LATHA 2020-06-28 2020-06-28 [facility] [id number] 14:56:00 17:04:00 Rafia Capps 350.1.13.10 [place] 4.2.7.2.686 [place] [id number] 2020-06-28 2020-06-28 [facility] ERT [id number] Univers 14:56:00 14:56:00 RAFIA oviedo [facility] 2020-06-28 2020-06-28 Orders Doctor POE 1.2.840.114 [id number] 00:00:00 00:00:00 Only Unassigned, DESTINY 350.1.13.10 [place] [facility] 4.2.7.2.686 [id number] 2020-03-20 2020-03-20 Emergency Aron INHANNA 1.2.840.114 [id number] 18:31:57 20:18:00 Errol Capps 350.1.13.10 [place] 4.2.7.2.686 [place] [id number] 084 2020-03-20 2020-03-20 Emergency X ARON INHANNA ERT [id number] Univers 18:31:57 18:31:57 ERROL oviedo [facility] Results Test Description Test Time Test Comments Results Result [facility] e Comments - XR FLUOROSCOPY 2019-01-14 Name: RACHAEL BEARD 0-60 MIN 10:27:00 DAVID Sharp : 1960 Age/S: 58 / M [address] Unit #: [id number] Loc: [place] [address] Phys: Kevin Rollins MD Acct: [id number] Dis Date: Status: REG [facility] PHONE #: [phone] Exam Date: 01/14/2019 0910 FAX #: Reason: PORT A CATH PLACEMENT EXAMS: CPT: [id number] XR FLUOROSCOPY 0-60 MIN 86384 Fluoro Time: 8 SEC DAP (Gy m2): [...] BEARD : 1960 Age/S: 58 / M [address] Unit #: [id number] Loc: [place] [address] Phys: Kevin Rollins MD Acct: [id number] Dis Date: Status: REG SDC PHONE #: [phone] Exam Date: 01/14/2019 0910 FAX #: Reason: PORT A CATH PLACEMENT EXAMS: CPT: [id number] XR FLUOROSCOPY 0-60 MIN 06859 Fluoro Time: 8 SEC DAP (Gy m2): Air Kerma (mGy): <Continued> Technologist: Sandy Lucero, RT(R)(CT); Mary Carbajal RT(R) Trnscb Date/Time: 01/14/2019 (1027) [id number] Orig Print D/T: S: 01/14/2019 (1035) PAGE 2 Signed Report GLUCOSE BEDSIDE TESTING 2019-01-14 10:17:00 Test Item Value Reference Range Interpretation Comme nts GLUCOSE BEDSIDE TESTING (test code = GLUBED) 140 mg/dL 70-110 H - XR CHEST 1 [id number] 10:04:00 Name: RACHAEL BEARDland : 1960 Age/S: 58 / M [address] [address] Unit #: [id number] Loc: [place] [address] Phys: Kevin Rollins MD Acct: [id number] Dis Date: Status: REG [facility] PHONE #: [phone] Exam Date: 01/14/2019 0955 FAX #: Reason: port placement EXAMS: CPT: [id number] XR CHEST 1 V 24272 Fluoro Time: DAP (Gy m2): Air Kerma [...] PAGE 1 Signed Report Name: RACHAEL BEARD [place] : 1960 Age/S: 58 / M [address] Unit #: [id number] Loc: [place] [address] Phys: Kevin Rollins MD Acct: [id number] Dis Date: Status: REG [facility] PHONE #: [phone] ExamDate: 01/14/2019 09 FAX #: Reason: port placement EXAMS: CPT: [id number] XR CHEST 1 V 57269 Fluoro Time: DAP (Gy m2): Air Kerma (mGy): <Continued> Technologist: Rachael Izquierdo, RT(R)(CT); Verenice Carbajal RT(R) Trnscb Date/Time: 01/14/2019 (1004) [email or web address] Orig Print D/T: S: 01/14/2019 (1007) PAGE 2 Signed ReportGLUCOSE BEDSIDE TESTING 2019-01-14 07:20:00 Test Item Value Reference Range Interpretation Comments GLUCOSE BEDSIDE TESTING (test code 137 mg/dL 70-110 H = GLUBED) [id number] 16:52:00 RUN DATE: 01/06/19 [facility] - LAB *LIVE* PAGE 1 RUN TIME: 1652 Specimen Inquiry RUN USER: INTERFACE PATIENT: RACHAEL BEARD LOC: Francia U #: [id number] AGE/SX: 58/M ROOM: [facility] RE12/31/18REG DR: Kevin Rollins MD : 64 BED: 1 DIS: 01/02/19 STATUS: DIS IN TLOC: SPEC #: [id number] RECD: 01/01/19 STATUS: MARCIA REQ #: [id number] ONELIA: 12/31/[address] [facility] [address]: Kevin Rollins MD ENTERED: 01/01/19 SP TYPE: SURG OTHR DR: Shamar Abreu ORDERED: SURG PATH LVL 6 COPIES TO: Shamar Abreu [address] [place], [place] [id number] [place] [address] [facility] [address] [address] HISTOLOGY: TISSUE ID BLK PCS CESAR LEV PROCEDURE DISPOSITION ____ ___ ___ ___ SIGMOID COLON A 1-15 1 PROCEDURES: SURG PATH LVL 6 (01/01/19) TISSUES: A. SIGMOID COLON - SIGMOID COLON AND ANASTOMATIC COLON RINGS CLINICAL HISTORY COLON RECTAL CANCER -C18.9 CPT CODES CPT CODE(S): 58523 , , , , , , FINAL DIAGNOSIS Colon, sigmoid, anastomotic donuts, partial colectomy: MODERATELY DIFFERENTIATED COLORECTAL ADENOCARCINOMA, 6 CM GREATEST DIMENSION 7 LYMPH NODES POSITIVE FOR METASTATIC CARCINOMA (7/10) MARGINS NEGATIVE CONTINUED ON NEXT PAGE RUN DATE: 01/06/19 [facility] - LAB *LIVE* PAGE 2 RUN TIME: 1652 Specimen Inquiry RUN USER: INTERFACE SPEC #: [id number] PATIENT: RACHAEL BEARD #[id number] (Continued) GROSS DESCRIPTION Sigmoid colon and anastomotic [...] A3 Entire circumference of distal margin A4-A5 Gunsmith Apprentice sections of the lesion A6 Tumor with normal mucosa of proximal margin A7 Tumor with normal mucosa of closest distal margin A8 Normal mucosa A9 Gunsmith Apprentice sections of largest anastomotic ring A10 Gunsmith Apprentice sections of second anastomotic ring A11 Gunsmith Apprentice sections of mesentery A12-A14 Gunsmith Apprentice sections of mesentery with possible matted lymph nodes A15-A20 Entire lymph nodes, one lymph node each A21 Two lymph nodes A22 Two lymph nodes, serially [id number] Three lymph nodes Grossing performed at [facility] Pathology, [address] [place] [address]. Cafeteria Manager: Hany Haji M.D. MICROSCOPIC DESCRIPTION Sigmoid colon [...] CONTINUED ON NEXT PAGE RUN DATE: 01/06/19 [facility] - LAB *LIVE* PAGE 3 RUNTIME: 165 Specimen Inquiry RUN USER: INTERFACE SPEC #: [id number] PATIENT: RACHAEL BEARD #[id number] (Continued) MICROSCOPIC DESCRIPTION (Continued) demonstrates moderately differentiated [...] 01/06/19 1652 END OF REPORT GLUCOSE BEDSIDE [id number] 17:20:00 Test Item Value Reference Range Interpretation Comments GLUCOSE BEDSIDE TESTING (test code 103 mg/dL 70-110 N = GLUBED) GLUCOSE BEDSIDE [id number] 11:28:00 Test Item Value Reference Range Interpretation Comments GLUCOSE BEDSIDE TESTING (test code = 87 mg/dL 70-110 N GLUBED) GLUCOSE BEDSIDE [id number] 07:23:00 Test Item Value Reference Range Interpretation Comments GLUCOSE BEDSIDE TESTING (test code 108 mg/dL 70-110 N = GLUBED) GLUCOSE BEDSIDE [id number] 20:29:00 Test Item Value Reference Range Interpretation Comments GLUCOSE BEDSIDE TESTING (test code = 99 mg/dL 70-110 N GLUBED) GLUCOSE BEDSIDE [id number] 16:28:00 Test Item Value Reference Range Interpretation Comments GLUCOSE BEDSIDE TESTING (test code = 84 mg/dL 70-110 N GLUBED) GLUCOSE BEDSIDE [id number] 11:30:00 Test Item Value Reference Range Interpretation Comments GLUCOSE BEDSIDE TESTING (test code 106 mg/dL 70-110 N = GLUBED) GLUCOSE BEDSIDE [id number] 07:38:00 Test Item Value Reference Range Interpretation Comments GLUCOSE BEDSIDE TESTING (test code 120 mg/dL 70-110 H = GLUBED) CBC W/AUTO [id number] 06:24:00 Test Item Value Reference Range Interpretation [...] = NO DIFF/SCN CRITERIA MDIFF) GLUCOSE BEDSIDE [id number] 21:45:00 Test Item Value Reference Range Interpretation Comments GLUCOSE BEDSIDE TESTING (test code 135 mg/dL 70-110 H = GLUBED) BASIC METABOLIC [id number] 18:20:00 Test Item Value Reference Range Interpretation [...] code = CA) 8.1 MG/DL 8.5-10.1 L [id number] 18:20:00 Test Item Value Reference Range Interpretation Comments PHOSPHOROUS (test code = PHOS) 3.2 MG/DL 2.5-4.9 N [id number] 18:20:00 Test Item Value Reference Range Interpretation Comments MAGNESIUM (test code = MAG) 1.7 MG/DL 1.8-2.4 L GLUCOSE BEDSIDE [id number] 16:54:00 Test Item Value Reference Range Interpretation Comments GLUCOSE BEDSIDE TESTING (test code 160 mg/dL 70-110 H = GLUBED) GLUCOSE BEDSIDE [id number] 14:29:00 Test Item Value Reference Range Interpretation Comments GLUCOSE BEDSIDE TESTING (test code 136 mg/dL 70-110 H = GLUBED) GLUCOSE BEDSIDE [id number] 07:31:00 Test Item Value Reference Range Interpretation Comments GLUCOSE BEDSIDE TESTING (test code 125 mg/dL 70-110 H = GLUBED)
--- NOTE | 2021-10-23 17:28 | RAD REPORT ---
EXAM DESCRIPTION: CT - Head Brain Wo Cont - 10/23/2021 5:15 pm CLINICAL HISTORY: head injury, dizziness Trauma, head injury, headache COMPARISON: Ct Stroke Brain Wo Cont dated 08/08/2020; Ct Stroke Brain Wo Cont dated 09/16/2019 TECHNIQUE: All CT scans are performed using dose optimization technique as appropriate and may inclu de automated exposure control or mA/KV adjustment according to patient size. FINDINGS: No intracranial hemorrhage, hydrocephalus or extra-axial fluid collection.Mild brain atrop hy.No areas of brain edema or evidence of midline shift. Mild mucosal thickening of both maxillary antra is seen. The calvarium is intact. IMPRESSION: No acute intracranial abnormality.
[2021-10-23] MEDS ORDERED: METOCLOPRAMIDE 10 MG/2mL INJ ONE (18:03)
[2021-10-23] MEDS ORDERED: DIPHENHYDRAMINE 50 MG/ML VIAL ONE (18:03)
[2021-10-23 18:10] LABS: Absolute Lymphocytes (CBC) 2.1 K/uL (0.7-4.9); Basophils % 0.6 % (0-1.3); Hematocrit 37.6 % (39.6-49.0); Lymphocytes % 26.1 % (15.3-44.8); MPV 9.8 fL (7.6-11.3); RBC Red Blood Cell Count 4.41 M/uL (4.33-5.43)
[2021-10-23 18:13] LABS: Protime INR 1.07
[2021-10-23 18:36] LABS: ALT/SGPT 64 U/L (12-78); Albumin 3.6 g/dL (3.4-5.0); Alkaline Phosphatase 143 U/L (45-117); BUN Blood Urea Nitrogen 10 mg/dL (7-18); Bicarbonate 25 mmol/L (21-32); Bilirubin Direct < 0.1 mg/dL (0-0.2); Bilirubin Total 0.3 mg/dL (0.2-1.0); Glucose Level 120 mg/dL (74-106); NT PRO-BNP 38 pg/mL (<125); Protein, Total 7.8 g/dL (6.4-8.2); Sodium Level 140 mmol/L (136-145); Troponin (Emerg Dept Use Only) < 0.02 ng/mL (0.0-0.045)
[2021-10-23 18:37] LABS: AST/SGOT 55 U/L (15-37); Magnesium 1.8 mg/dL (1.8-2.4); Potassium 4.5 mmol/L (3.5-5.1)
--- NOTE | 2021-10-23 18:40 | RAD REPORT ---
EXAM DESCRIPTION: RAD - Chest Single View - 10/23/2021 6:03 pm CLINICAL HISTORY: syncope Chest pain. COMPARISON: Chest Single View dated 01/25/2021; Chest Single View dated 08/08/2020; Chest Single View dated 01/04/2020; Chest Single View dated 09/16/2019 FINDINGS: Portable technique limits examination quality. The lungs are grossly clear. The heart is upper limit of normal in size. No displaced fractures. IMPRESSION: No acute intrathoracic process suspected.
--- NOTE | 2021-10-23 19:15 | RAD REPORT ---
EXAM DESCRIPTION: CT - C Spine Wo Con - 10/23/2021 6:54 pm CLINICAL HISTORY: PAIN Trauma, pain COMPARISON: No comparisons FINDINGS: The cervical vertebral body heights and disc spaces are maintained. No evidence of acute cervical spine fracture or subluxation. Prevertebral soft tissues are normal in thickness. IMPRESSION: Negative for acute cervical spine abnormality. All CT scans are performed using dose optimization technique as appropriate and may include automated exposure control or mA/KV adjustment according to patient size.
--- NOTE | 2021-10-23 19:40 | ER ---
Nurse's Notes [facility] Name: Taiwo Chery Age: 61 yrs Sex: Male : 1960 Arrival Date: 10/23/2021 Time: 15:40 Bed 14 Private MD: Brittanie Wing Diagnosis: Postconcussional syndrome Presentation: 10/23 15:48 Chief complaint: Patient states: pt syncope episode yesterday with dizziness. pt states jh6 dizziness worse with head movement and pham worse this afternoon. pt did strike his head and rt shoulder. Coronavirus screen: Vaccine status: Patient reports receiving the 2nd dose of the covid vaccine. Ebola Screen: No symptoms or risks identified at this time. Initial Sepsis Screen: Does the patient meet any 2 criteria? No. Patient's initial sepsis screen is negative. Does the patient have a suspected source of infection? No. Patient's initial sepsis screen is negative. Risk Assessment: Do you want to hurt yourself or someone else? Patient reports no desire to harm self or others. Onset of symptoms was 2020. Onset of symptoms was October 22, 2021. 15:48 Method Of Arrival: Wheelchair [facility] 15:48 Acuity: LEONARD 3 6 Triage Assessment: 15:54 Headache History: Denies prior headaches. General: Appears uncomfortable, obese, well jh6 groomed, well developed, well nourished, Behavior is calm, cooperative. Pain: Complains of pain in scalp Pain radiates to back of right arm Pain currently is 10 out of 10 on a pain scale. Quality of pain is described as throbbing, Pain began suddenly, Is continuous, Aggravated by increased activity, Also complains of. Historical: - Home Meds: 15:52 zolpidem 12.5 mg Oral TbMP [Active]; jh6 19:02 cyanocobalamin (vitamin B-12) oral [Active]; metformin 1,000 mg Oral tab [Active]; ap3 gabapentin 600 mg oral tab [Active]; enalapril maleate 20 mg Oral tab [Active]; doxepin 50 mg Oral cap [Active]; simvastatin 40 mg Oral tab [Active]; metoprolol tartrate 50 mg Oral tab [Active]; hydrocodone-acetaminophen 5-325 mg Oral tab [Active]; tizanidine oral [Active]; - Immunization history:: Adult Immunizations Client reports receiving the 2nd dose of the Covid vaccine. - Social history:: Smoking status: Patient denies any tobacco usage or history of. Patient/guardian denies using. Screenin:28 Abuse screen: Denies threats or abuse. Denies injuries from another. Nutritional pham screening: No deficits noted. Tuberculosis screening: No symptoms or risk factors identified. Fall Risk Fall in past 12 months (25 points). Assessment: 17:28 Pain: Complains of pain in back. Neuro: No deficits noted. pham 17:33 Pain: Complains of pain in back of head. pham 18:25 Reassessment: reglan 10 mg IV was ordered. 2 vial was pulled from [employer] only 10mg was pham given the other vial was open/not given was wasted. 19:32 Reassessment: Radiology completed.. pham 20:03 Reassessment: Cleared for discharge to home by the provider. The patient is being pham driven by his . . Vital Signs: 15:48 BP 120 / 71; Pulse 72; Resp 18; Temp 97.6(O); Pulse Ox 100% ; Weight 108.86 kg; Height jh6 5 ft. 4 in. (162.56 cm); Pain 10/10; 17:40 BP 118 / 78; Pulse 64; Resp 18; Pulse Ox 100% ; pham 18:49 BP 134 / 85; Pulse 68; Resp 18; Pulse Ox 100% ; pham 19:31 BP 117 / 75; Pulse 65; Resp 16; Temp 98.2; Pulse Ox 100% 0 lpm ; pham 15:48 Body Mass Index 41.20 (108.86 kg, 162.56 cm) [facility] ED Course: 15:40 Patient arrived in ED. as 15:40 Brittanie Wing is Private Physician. as 15:52 Triage completed. jh6 15:55 Arm band placed on right wrist. jh6 17:15 CT Head Brain wo Cont In Process Unspecified. EDMS 17:28 Patient has correct armband on for positive identification. Bed in low position. Side pham rails up X 1. 17:28 No provider procedures requiring assistance completed. pham 17:40 Corbin Hernandez PA is PHCP. jr8 17:40 Abraham Omer MD is Attending Physician. jr8 17:57 Basic Metabolic Panel Sent. pham 17:57 CBC with Diff Sent. pham 17:57 LFT's Sent. pham 17:57 Magnesium Sent. pham 17:57 NT PRO-BNP Sent. pham 17:57 PT-INR Sent. pham 17:57 Troponin (emerg Dept Use Only) Sent. pham 18:03 XRAY Chest (1 view) In Process Unspecified. EDMS 18:53 CT C Spine In Process Unspecified. EDMS 19:02 Sommer Carmen is Primary Nurse. pham 19:39 Brittanie Wing is Referral Physician. jr8 20:02 IV discontinued. pham Administered Medications: 18:13 Drug: Benadryl (diphenhydrAMINE) 25 mg Route: IVP; Site: left hand; pham 20:01 Follow up: Response: No adverse reaction pham 18:14 Drug: Reglan (metoCLOPramide) 10 mg Route: IVP; Site: left hand; pham 20:01 Follow up: Response: Nausea is decreased pham Outcome: 19:39 Discharge ordered by MD. jr8 20:02 Discharged to home ambulatory, with family. pham 20:02 Condition: improved 20:02 Discharge instructions given to patient. 20:04 Patient left the ED. pham Signatures: Dispatcher [employer] EDMS Griselda Gutierrez Josh, PA PA jr8 Meaghan Harper RN RN Gaby Farah RN RN 6 Sommer Carmen Corrections: (The following items were deleted from the chart) 15:54 15:52 PMHx: Hypertension; [place] [id number] 15:54 15:52 PMHx: Hyperlipidemia; [place] [address] 15:54 15:52 PMHx: Diabetes - NIDDM; [place] [id number] 15:54 15:52 PMHx: Headaches; [place] [address] 15:54 15:52 PMHx: Anxiety; [place] [address] 15:54 15:52 PMHx: TIA; [place] [address] 15:54 15:52 PMHx: colon cancer; [place] [address] 15:54 15:52 PSHx: colon resection; [place] [address] 17:33 17:28 Neuro: No deficits noted. pham pham 19:05 15:52 Home Meds: Depakote Oral; jh6 ap3
--- NOTE | 2021-10-23 19:40 | EDPHYS ---
Physician Documentation [facility] Name: Taiwo Chery Age: 61 yrs Sex: Male : 1960 Arrival Date: 10/23/2021 Time: 15:40 Bed 14 Private MD: Brittanie Wing ED Physician Abraham Omer HPI: 10/23 18:22 This 61 yrs old Male presents to ER via Wheelchair with complaints of jr8 Dizziness, Headache - fall injury yest. 18:22 This is a 61-year-old male patient that presented to the emergency room with 24-hour jr8 history of headache. Patient stated that while he was working got dizzy and blacked out and fell backwards hitting his head and neck. Initially had pain but overall was feeling better until last night where he started to have headaches that have now been unrelieved.. Historical: - Home Meds: 15:52 zolpidem 12.5 mg Oral TbMP [Active]; jh6 19:02 cyanocobalamin (vitamin B-12) oral [Active]; metformin 1,000 mg Oral tab [Active]; ap3 gabapentin 600 mg oral tab [Active]; enalapril maleate 20 mg Oral tab [Active]; doxepin 50 mg Oral cap [Active]; simvastatin 40 mg Oral tab [Active]; metoprolol tartrate 50 mg Oral tab [Active]; hydrocodone-acetaminophen 5-325 mg Oral tab [Active]; tizanidine oral [Active]; - Immunization history:: Adult Immunizations Client reports receiving the 2nd dose of the Covid vaccine. - Social history:: Smoking status: Patient denies any tobacco usage or history of. Patient/guardian denies using. ROS: 18:22 Eyes: Negative for injury, pain, redness, and discharge, ENT: Negative for injury, jr8 pain, and discharge, Neck: Negative for injury, pain, and swelling, Cardiovascular: Negative for chest pain, palpitations, and edema, Respiratory: Negative for shortness of breath, cough, wheezing, and pleuritic chest pain, Abdomen/GI: Negative for abdominal pain, nausea, vomiting, diarrhea, and constipation, Back: Negative for injury and pain, MS/Extremity: Negative for injury and deformity, Skin: Negative for injury, rash, and discoloration. 18:22 Neuro: Positive for dizziness, headache, syncope. Exam: 18:22 Eyes: Pupils equal round and reactive to light, extra-ocular motions intact. Lids and jr8 lashes normal. Conjunctiva and sclera are non-icteric and not injected. Cornea within normal limits. Periorbital areas with no swelling, redness, or edema. ENT: Nares patent. No nasal discharge, no septal abnormalities noted. Tympanic membranes are normal and external auditory canals are clear. Oropharynx with no redness, swelling, or masses, exudates, or evidence of obstruction, uvula midline. Mucous membranes moist. Neck: Trachea midline, no thyromegaly or masses palpated, and no cervical lymphadenopathy. Supple, full range of motion without nuchal rigidity. Mild mid cervical point tenderness noted in the C4-7 region.. No Meningismus. Cardiovascular: Regular rate and rhythm with a normal S1 and S2. No gallops, murmurs, or rubs. Normal PMI, no JVD. No pulse deficits. Respiratory: Lungs have equal breath sounds bilaterally, clear to auscultation and percussion. No rales, rhonchi or wheezes noted. No increased work of breathing, no retractions or nasal flaring. Abdomen/GI: Soft, non-tender, with normal bowel sounds. No distension or tympany. No guarding or rebound. No evidence of tenderness throughout. Back: No spinal tenderness. No costovertebral tenderness. Full range of motion. Skin: Warm, dry with normal turgor. Normal color with no rashes, no lesions, and no evidence of cellulitis. MS/ Extremity: Pulses equal, no cyanosis. Neurovascular intact. Full, normal range of motion. Neuro: Awake and alert, GCS 15, oriented to person, place, time, and situation. Cranial nerves II-XII grossly intact. Motor strength 5/5 in all extremities. Sensory grossly intact. Cerebellar exam normal. 18:22 Constitutional: The patient appears alert, awake, in obvious pain, uncomfortable. Vital Signs: 15:48 BP 120 / 71; Pulse 72; Resp 18; Temp 97.6(O); Pulse Ox 100% ; Weight 108.86 kg; Height jh6 5 ft. 4 in. (162.56 cm); Pain 10/10; 17:40 BP 118 / 78; Pulse 64; Resp 18; Pulse Ox 100% ; pham 18:49 BP 134 / 85; Pulse 68; Resp 18; Pulse Ox 100% ; pham 19:31 BP 117 / 75; Pulse 65; Resp 16; Temp 98.2; Pulse Ox 100% 0 lpm ; pham 15:48 Body Mass Index 41.20 (108.86 kg, 162.56 cm) [facility] MDM: 17:40 Patient medically screened. 8 19:39 Data reviewed: vital signs, nurses notes, lab test result(s), EKG, radiologic studies, [facility] CT scan, plain films. Data interpreted: Pulse oximetry: on room air is 100 %. Interpretation: normal. Counseling: I had a detailed discussion with the patient and/or guardian regarding: the historical points, exam findings, and any diagnostic results supporting the discharge/admit diagnosis, lab results, radiology results, the need for outpatient follow up, a family practitioner, to return to the emergency department if symptoms worsen or persist or if there are any questions or concerns that arise at home. Response to treatment: the patient's symptoms have markedly improved after treatment. ED course: No acute findings on imaging or labs. Will have patient follow-up with PCP as he most likely has a concussion from the fall. Needs to rest over the next several days. Close return precautions given to patient.. 10/23 17:41 Order name: Basic Metabolic Panel; Complete Time: 18:59 [facility] 10/23 17:41 Order name: CBC with Diff; Complete Time: 18:59 [facility] 10/23 17:41 Order name: LFT's; Complete Time: 18:59 [facility] 10/23 17:41 Order name: Magnesium; Complete Time: 18:59 [facility] 10/23 17:41 Order name: NT PRO-BNP; Complete Time: 18:59 [facility] 10/23 17:41 Order name: PT-INR; Complete Time: 18:20 [facility] 10/23 16:18 Order name: CT Head Brain wo Cont; Complete Time: 17:41 rn 10/23 17:41 Order name: Troponin (emerg Dept Use Only); Complete Time: 18:59 [facility] 10/23 17:41 Order name: XRAY Chest (1 view); Complete Time: 18:59 [facility] 10/23 17:41 Order name: EKG; Complete Time: 17:42 10/23 17:41 Order name: Cardiac monitoring; Complete Time: 17:57 10/23 17:49 Order name: CT C Spine; Complete Time: 19:38 10/23 17:41 Order name: IV Saline Lock; Complete Time: 17:57 10/23 17:41 Order name: Labs collected and sent; Complete Time: 17:57 10/23 17:41 Order name: O2 Per Protocol; Complete Time: 17:57 10/23 17:41 Order name: O2 Sat Monitoring; Complete Time: 17:57 Administered Medications: 18:13 Drug: Benadryl (diphenhydrAMINE) 25 mg Route: IVP; Site: left hand; pham 20:01 Follow up: Response: No adverse reaction pham 18:14 Drug: Reglan (metoCLOPramide) 10 mg Route: IVP; Site: left hand; pham 20:01 Follow up: Response: Nausea is decreased pham Disposition: 10/24 07:09 Co-signature as Attending Physician, Abraham Omer MD I agree with the assessment and rn plan of care. Attestation: The patient's history, exam findings, diagnostics, and a summary of any interventions or procedures was reviewed in detail with Corbin SANDERS. Disposition Summary: 10/23/21 19:39 Discharge Ordered Location: Home [facility] Problem: new jr8 Symptoms: have improved jr8 Condition: Stable jr8 Diagnosis - Postconcussional syndrome jr8 Followup: jr8 - With: Brittanie Wing - When: 2 - 3 days - Reason: Recheck today's complaints, Continuance of care, Re-evaluation by your physician Discharge Instructions: - Discharge Summary Sheet jr8 - Post-Concussion Syndrome jr8 Forms: - Medication Reconciliation Form jr8 - Thank You Letter jr8 - Antibiotic Education jr8 - Prescription Opioid Use jr8 - Work release form Prescriptions: - Meclizine 25 mg Oral Tablet - take 1 tablet by ORAL route every 8 hours As needed; 30 tablet; Refills: 0, jr8 Product Selection Permitted Signatures: Dispatcher [employer] EDAbraham Sanches MD MD rn Roszak, Josh, PA PA jr8 Meaghan Harper RN RN ap3 Gaby Padilla RN RN 6 Au-Stager, Sommer pham Corrections: (The following items were deleted from the chart) 10/23 15:54 15:52 PMHx: Hypertension; [place] [id number] 54 15:52 PMHx: Hyperlipidemia; [place] [id number] 54 15:52 PMHx: Diabetes - NIDDM; [facility]6 54 15:52 PMHx: Headaches; [place] [address] 15:52 PMHx: Anxiety; [place] [address] 15:52 PMHx: TIA; [place] [address] :54 15:52 PMHx: colon cancer; [facility] 15:54 15:52 PSHx: colon resection; [place] [address] 19:05 15:52 Home Meds: Depakote Oral; jh6 ap3
[2021-10-23 20:09] VITALS: O2SAT 100
[2021-10-23 20:13] VITALS: BP 117/75; TEMP 98.2
--- NOTE | 2021-10-24 07:49 | EKG ---
Test Date: 2021-10-23 Test Time: 18:45:57 Hydrometer Tester: TARAN MEASUREMENT RESULTS: Intervals: Rate: 65 MD: 162 QRSD: 86 QT: 430 QTc: 447 [place]: P: 6 MD: 162 QRS: 13 T: 23 INTERPRETIVE STATEMENTS: Normal sinus rhythm Anterior infarct, age undetermined Abnormal ECG Compared to ECG 08/08/2020 14:40:24 Myocardial infarct finding now present Electronically Signed On 10-24-21 07:48:05 MONTESSORI TODDLER TEACHER by Kvng Marsh
== END 2021-10-23 20:04 | disposition home or self-care (01) ==
LOC: ER 15:39
DX: F07.81 Postconcussional syndrome (principal); W18.30XA Fall on same level, unspecified, initial encounter
CPT/HCPCS: 93005; 85025; 80048; 36415; 83735; 85610; 80076; 84484; 83880; 70450; 72125; 71045; J2765; J1200; 96374; 96375; 99284

== ENCOUNTER 2022-08-27 09:15 | Day surgery (SDC) | payer OTHER ==
[2022-08-23 14:32] LABS: Protime INR 1.02
[2022-08-23 14:33] LABS: Absolute Lymphocytes (CBC) 2.6 K/uL (0.7-4.9); Hematocrit 38.2 % (39.6-49.0); Lymphocytes % 26.7 % (15.3-44.8); MCV 85.1 fL (80-100); MPV 9.5 fL (7.6-11.3); RBC Red Blood Cell Count 4.49 M/uL (4.33-5.43)
--- NOTE | 2022-08-23 14:34 | RAD REPORT ---
EXAM DESCRIPTION: RAD - Chest Pa And Lat (2 Views) - 08/23/2022 2:23 pm CLINICAL HISTORY: Pre op pending circumcision Chest pain. COMPARISON: Chest Single View dated 10/23/2021; Chest Single View dated 01/25/2021; Chest Single View dated 08/08/2020; Chest Single View dated 01/04/2020 FINDINGS: The lungs are clear. The heart is normal in size. No displaced fractures. IMPRESSION: No acute or concerning finding suspected.
[2022-08-23 14:40] LABS: Potassium 4.1 mmol/L (3.5-5.1)
[2022-08-23 15:00] LABS: Specific Gravity 1.024 (1.005-1.030); Urine Bilirubin NEGATIVE (Negative); Urine Blood Negative (Negative); Urine Clarity Clear (Clear); Urine Color Yellow (Yellow); Urine Glucose NEGATIVE (Negative); Urine Protein NEGATIVE (Negative); Urine Urobilinogen 2+ (Normal); Urine pH 6.5 (5.0-7.0)
[2022-08-23 15:07] LABS: SARS-CoV-2 Antigen Rapid Res Negative (Negative)
--- NOTE | 2022-08-26 16:13 | EKG ---
Test Date: 2022-08-23 Test Time: 13:57:54 Slaughte[employer] Ritual: TIARA MEASUREMENT RESULTS: Intervals: Rate: 61 NH: 174 QRSD: 94 QT: 430 QTc: 432 [place]: P: 3 NH: 174 QRS: 20 T: 32 INTERPRETIVE STATEMENTS: Normal sinus rhythm Nonspecific ST abnormality Abnormal ECG Compared to ECG 10/23/2021 18:45:57 ST (T wave) deviation now present Myocardial infarct finding no longer present Electronically Signed On 08-26-22 16:10:06 CDT by Dwight Ocampo
[2022-08-27] MEDS ORDERED: CEFAZOLIN SODIUM 2 GM/VIAL ONE (09:31)
[2022-08-27] MEDS ORDERED: NA CHLORIDE 0.9% 1,000 ML ONE (09:31)
[2022-08-27] MEDS ORDERED: BACITRACIN OINTMENT 14 GM TUBE TOP ONE (12:05)
[2022-08-27] MEDS ORDERED: BUPIVACAINE 0.25% PF 30 ML VIAL ONE (12:05)
[2022-08-27] MEDS ORDERED: LIDOCAINE 1% MPF 30 ML VIAL ONE (12:05)
[2022-08-27] MEDS ORDERED: FENTANYL CITR 100 MCG/2 ML ONE ×2 (12:26→13:37)
[2022-08-27] MEDS ORDERED: MIDAZOLAM HCL 2 MG/2 ML INJ ONE (12:26)
[2022-08-27] MEDS ORDERED: propofoL 200 MG/20 ML VIAL IV ONE ×2 (12:26→13:30)
[2022-08-27] MEDS ORDERED: LIDOCAINE 1% MPF 5 ML VIAL ONE (12:26)
[2022-08-27] MEDS ORDERED: NS 0.9% VIAL 10 ML ONE (13:13)
[2022-08-27] MEDS ORDERED: KETOROLAC 30 MG/ML INJ ONE (13:38)
[2022-08-27] MEDS ORDERED: ONDANSETRON 4 MG/2 ML VIAL ONE (13:41)
[2022-08-27] MEDS ORDERED: MEPERIDINE HCL 25 MG/ML SYR ONE (14:42)
[2022-08-27] MEDS ORDERED: CODEINE 30MG/APAP 300MG TAB PO PRN (15:28)
[2022-08-27 16:01] VITALS: BP 118/74; TEMP 97.6; O2SAT 97
--- NOTE | 2022-08-27 16:40 | OP ---
Surgeon: DEANNA PITTMAN Preoperative Diagnoses: 1.Phimosis. 2.BXO/balanitis xerotica obliterans. Postoperative Diagnoses: 1.Phimosis. 2.BXO/balanitis xerotica obliterans. Principal Procedures: 1.Sleeve circumcision. 2.Penile block. Indication For Procedure: Mr. Azra Chery presented to the Urology Clinic with poorly-controlled type 2 diabetes and development of progressive phimosis with irritation of his foreskin. He initial ly underwent treatment with triamcinolone, nystatin ointment, but this failed to resolve the phimosis significantly and there were signs of scar related changes consistent with BXO. As a result, he was counseled that BXO is a premalignant lesion and a circumcision would be recommended to prevent the d evelopment of penile malignancy in the long run. Procedure In Detail: The patient was consented in the preoperative holding area before being transfe rred to the operative suite where general anesthesia was induced. He was given Ancef 2 g IV antimicr obial prophylaxis and Pneumoboots were provided for DVT prophylaxis. He was placed supine on the pro cedure table, padded and secured appropriately. His genitalia were shaved and prepped with Betadine before being draped in standard fashion. A penile block was then performed using an 18-gauge needle and inserting that needle in the infrapubic region in the dorsal midline at first. 10 cc of a mixtur e of 0.25% Marcaine and 1% lidocaine was given with an additional 10 cc in the region of the neurovas cular bundles bilaterally for a total of about 32 or 33 cc administered. I then identified and marke d. The region at the david of the glans penis circumferentially, which was then incised using a 15 blade. This was deepened through the dartos layers until the Moody fascia was visualized. The skin w as then retracted revealing the glans and additional gio within the preputial margin was performed l eaving about a 1 cm preputial margin circumferentially. The intervening skin was then divided in the dorsal midline and was excised off the Moody fascia using electrocautery. Pinpoint fulguration of an y and all bleeding vessels was then performed along with irrigation. I then reapproximated the skin in the preputial margin by placing quadrant stitches first in the dorsal midline. Because the preput ial margin was circumferentially a bit tight, I incised it about 0.5 cm in the dorsal midline in orde r to perform a relaxing incision. A similar relaxing incision was performed on the ventral midline. I then approximated the shaft skin to the preputial margin in the dorsal midline, the ventral midlin e, and in the midline of each lateral body of the penis. The skin between the interrupted sutures of 3-0 chromic were then closed using a running horizontal mattress. In the end, the cosmetic result w as excellent. There was no sign of bleeding or phallic swelling consistent with any underlying hemat cosmo. As a result, his skin was cleansed off the Betadine and then bacitracin was applied to the inci yoli line along with a Ethel and Coban. The glans was also coated in bacitracin and the patient was then awakened from general anesthesia before being transferred to a stretcher and then transferred to the recovery room in good condition. Complications: None. Discharge Disposition: He should follow up in the Urology clinic somewhere within the next 2-6 weeks interval assessment. PO/MILES Voice ID: [id number] Report ID: [id number]
== END 2022-08-27 16:16 | disposition home or self-care (01) ==
LOC: OR 09:15
PROVIDERS: ATTEND Urology
PROC: 0VTTXZZ Resection of Prepuce, External Approach (ICD-10-PCS; principal; 2022-08-27 11:15)
DX: N47.1 Phimosis (principal); N48.0 Leukoplakia of penis; Z20.822 Contact with and (suspected) exposure to COVID-19; E11.9 Type 2 diabetes mellitus without complications; Z85.038 Personal history of other malignant neoplasm of large intestine
CPT/HCPCS: 93005; 85025; 80048; 36415; 85610; 82947 ×2; 88304; 81003; 71046; 87811; 54150; J2704 ×2; J2001; J2250; J3010 ×2; J2175; A4216; J7030; J2405

== ENCOUNTER 2023-04-30 15:59 | Emergency (ER) | payer OTHER ==
--- OUTSIDE RECORDS SUMMARY | 2023-04-30 16:27 | XMS REPORT | Continuity of Care Document ---
:1960 Author Organization [facility] t Address [address] [place] [address] [place] [id number] Care Team Providers Name Role Phone JANNETTE ORTIZLI Primary Care Physician Unavailable Darius Gallo Attending Clinician Unavailable Brittanie Wing Attending Clinician Unavailable GEORGINA FOSTER Attending Clinician Unavailable LAB90 Attending Clinician Unavailable RAMY SIDDIQUI Attending Clinician Unavailable GUS NERI Attending Clinician Unavailable DARIUS GALLO Attending Clinician Unavailable NEO CARBAJAL Attending Clinician Unavailable DARREL CHOI Attending Clinician Unavailable MD ELISE Attending Clinician Unavailable PL, TECH 1 Attending Clinician Unavailable CHRISTIANO MENDOZA Attending Clinician Unavailable LATHA ROCK Attending Clinician Unavailable IDALIA YOHAN Cox Attending Clinician Unavailable MICAH ULLOA Attending Clinician Unavailable Raul Elkins DO Attending Clinician JERROD ANDERSON Attending Clinician Unavailable LATHA AVILA Attending Clinician Unavailable Rafia Medina Attending Clinician RAFIA GORDON Attending Clinician Unavailable Doctor Unassigned, [place] Attending Clinician Unavailable Errol Callejas Attending Clinician ERROL SHARP Attending Clinician Unavailable JERROD ANDERSON Admitting Clinician Unavailable Payers Payer Name Policy Type Policy Number Effective Date Expiration Date S ource HUMANA MA GOLD 7 [id number] 2022 PLUS 33 D-SNP 00:00:00 OA HUMANA MA 5 [id number] 2022 00:00:00 KCA GOLD 16 [id number] 2021 F[employer]OM HMO-POS 00:00:00 HUMANA MEDICARE 53 [id number] 2022 Common Sp les 00:00:00 - [facility] [id number] 2019 HEALTH CHOICE 00:00:00 Problems Condition Condition Condition Status Onset Resolution Last Treating Co mments Source Name Details Category Date Date Treatment Clinician Date 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 Seybold diabetic diabetic 00:00: - mixed mixed 00 Externa hyperlipid hyperlipid l emia emia Anxiety Anxiety Disease Active Kateryna 4-18 Seybold 00:00: - 00 Externa l Primary Primary Disease Active Kateryna insomnia insomnia 4-18 Seybol d 00:00: - 00 Externa l Gastroesop Gastroesop Disease Active Vincent duvall hageal hageal 4-18 Seybold reflux reflux 00:00: - disease disease 00 Externa without without l esophagiti esophagiti s s 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 4-18 Se ybold athy athy 00:00: - associated associated 00 Ex terna with type with type l 2 diabetes 2 diabetes mellitus mellitus Acute pain Acute pain Disease Active Vincent edouardy of right of right 4-18 Seybol d knee knee 00:00: - 00 Externa l History of History of Disease Active Vincent duvall colectomy colectomy 1-18 Seyb old 00:00: - 00 Externa l Chronic Chronic Disease Active Kateryna bilateral bilateral 1-18 Seyb old low back low back 00:00: - pain with pain with 00 Exte rna bilateral bilateral l sciatica sciatica Fatty Fatty Disease Active Kateryna liver liver 1-18 Seybold 00:00: - 00 Externa l Acute Acute Disease Active Kateryna pharyngiti pharyngiti 1-05 Se ybold s due to s due to 00:00: - other other 00 Externa specified specified l organisms organisms Radiculopa Radiculopa Disease Active 2021-11 Santana duvall thy thy 1-16 Assessmen Seybold 00:00: t & Plan: - 00 Formattin Externa g of this l note might be different from the original. - chronic intractab le back pain with radicular features, already on neuropath ic and antidepre ssant medicatio ns with minimal benefit, two courses conservat louis PT- MRI thoracic spine w/ and w/o contrast to rule out intramedu llary lesion- spine clinic referral- encourage d patient to continue to follow with pain managemen t vs seek second opinion Class 2 Class 2 Disease Active Kateryna severe severe 1-17 Seybold obesity obesity 00:00: - due to due to 00 Externa excess excess l calories calories with with serious serious comorbidit comorbidit y and body y and body mass index mass index (BMI) of (BMI) of 39.0 to 39.0 to 39.9 in 39.9 in adult adult 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 1-17 Se ybold disorder, disorder, 00:00: - single single 00 Externa episode, episode, l mild mild Type 2 Type 2 Disease Active Kateryna diabetes diabetes 1-17 Seybol d mellitus mellitus 00:00: - with with 00 Externa hyperglyce hyperglyce l kurtis kurtis [id number] Other Problem Common chronic Spirit pain - [facility] Incomplete Incomplete Problem C ommon emptying emptying Spirit of bladder of bladder - [facility] Disorder Renal Problem Common of kidney mass, Spirit and/or right - [facility] ureter [facility] [id number] Primary Problem Comm on osteoarthr Spirit itis of - [facility] right knee [facility] [id number] Primary Problem Comm on osteoarthr Spirit itis of - [facility] left knee [facility] [id number] BPH loc w Problem Com mon urin Spirit obs/LUTS - [facility] [id number] Right-side Problem Co mmon d low back Spirit pain - [facility] without [facility] chronic[facility] Spasm Jerking Problem Common movements Spirit of - [facility] extremitie [facility] [id number] CPAP Problem Common (continuou Spirit s positive - [facility] airway St pressure) [facility] [place] dependence Medica [facility] [id number] 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 - [facility] sites of Medica l urethra in Center male [id number] Other Problem Common obstructiv Spirit e and - [facility] reflux uropathy [facility] [id number] Urethritis Problem Com mon Spirit - [facility] [id number] Other Problem Commo n [id number] stricture Spirit of - [facility] urethral [facility] meatus in [facility] [id number] Body mass Problem Com mon index [facility] (BMI) - [facility] 40.0-44.9, [facility] Hyperlipid Hyperlipid Problem C ommon emia emia Spirit [facility] [id number] Depression Problem Co mmon with Spirit anxiety - [facility] [id number] Morbid Problem Common obesity Spirit - [facility] [id number] Essential Problem Comm on hypertensi Spirit on - [facility] Skin Numbness Problem Common sensation in both Spirit disturbanc hands - [facility] e [facility] [id number] Uncontroll Problem Co mmon ed type 2 Spirit diabetes - [facility] mellitus 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 - [facility] Phimosis Phimosis Problem Commo n Spirit - [facility] [id number] Lower Problem Common urinary [facility] tract - [facility] Acute Acute Problem Common cystitis cystitis [facility] with - [facility] hematuria [facility] [id number] Hx of Problem Common colon [facility] cancer, - [facility] stage III [facility] Cancer Cancer Problem Common [facility] Dizziness Dizziness Problem Com mon [facility] [id number] Leg Problem Common heaviness [facility] Headache Frequent Problem Commo n headaches [facility] [id number] Obstructiv Problem Com mon e sleep [facility] apnea [facility] Gross Gross Problem Common hematuria hematuria Spir [facility] 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[facility] kidney - [facility] disease [facility] Arthritis Arthritis Problem Com mon of both of both [facility] knees knees [facility] HTN HTN Disease Active Kateryna (hypertens (hypertens Se ybold ion) ion) - Externa l Depression Depression Disease Active Vincent Gauthier DM DM Disease Active Kateryna (diabetes (diabetes Seyb old mellitus), mellitus), type 2 type 2 Allergies, Adverse Reactions, Alerts Allergy Allergy Status Severity Reaction(s) Onset Inactive Treating Comm ents Source Name Type Date Date Clinician No Known DA Active [facility] Allergie 2-19 [place] s 00:00: d [address] [place] [address] NO KNOWN Drug Active [facility] ALLERGIE Class ity of S [facility] Social History Social Habit Start Date Stop Date Quantity Comments Source History of Tobacco Common Spirit - Use [facility] Sex Assigned At Com mon [facility] Gender identity Kateryna duron - External Sexual orientation Kateryna Gauthier - External Exposure to Not sure Kateryna zepeda SARS-CoV-2 (event) History of Social 2021-11-26 2021-11-26 Kateryna Gauthier - function 00:00:00 00:00:00 External Smoking Status Start Date Stop Date Source Former Smoker 2023-03-24 00:00:00 2023-03-24 00:00:00 Common S pirit - [facility] Ce nter Never smoked tobacco Kateryna alan - External Medications Ordered Filled Start Stop Current Ordering Indication Dosage Frequency Signature Comments Components Source Medication Medication Date Date Medication? Clinician (SIG) Name Name Naproxen Naproxen No BID Naproxen 500 MG 500 MG 5-15 500 MG 00:00: 00 Aspirin 81 2022-0 Yes 81mg Take 1 Kelse y MG oral 4-28 tablet (81 Seybol d Tablet 11:36: mg total) - Delayed 59 by mouth Externa Response l Tizanidine 2022-0 Yes 4mg Take 1 Kelse y HCl 4 MG 4-28 tablet (4 Seybol d oral Tablet 11:36: mg total) - 59 by mouth Externa at bedtime l HYDROcodone 2022-0 Yes [id number] 1{tbl} QD Take 1 Kateryna -Acetaminop 4-28 tablet by Rosalba bold hen 10-325 11:36: mouth - MG oral 59 daily as Externa Tablet needed for l pain Trazodone 2022-0 Yes Trazodone Dre sey HCl 100 MG 4-28 Oral once Seyb old oral Tablet 11:36: daily - 59 active Externa l Eszopiclone 2022-0 Yes Eszopiclon Kateryna 3 MG oral 4-28 e Oral Seybold Tablet 11:36: once daily - 59 active Externa l Gabapentin 2022-0 Yes 1 in AM, 1 K elsey 300 MG oral 4-28 at noon, Seyb old Capsule 00:00: and 2 at - 00 night Externa l Enalapril 2022-0 Yes [id number] TAKE 1 Ke lsey Maleate 10 4-25 TABLET Seybold MG oral 00:00: EVERY DAY - Tablet 00 Externa l Blood 2022-0 Yes USE Kateryna Glucose 4-25 MONITOR TO Seybol d Monitoring 00:00: CHECK - Suppl (True 00 BLOOD Externa Metrix Air SUGAR l Glucose Meter) w/Device does not apply Kit Pantoprazol 2022-0 Yes [id number] TAKE 1 Kateryna e Sodium 40 4-25 TABLET Seybol d MG oral 00:00: EVERY DAY - Tablet 00 Externa Delayed l Response Blood 2022-0 Yes Kateryna Glucose 4-25 Seybold Calibration 00:00: - (True 00 Externa Metrix l Level 1) Low in vitro Solution Metoprolol 2022-0 Yes [id number] 25mg Take 1 K elsey Tartrate 4-24 tablet (25 Seybo ld (LOPRESSOR) 00:00: mg total) - 25 MG oral 00 by mouth 2 Ext gerber Tablet times l daily HYDROcodone 0 Yes [id number] 1{tbl} QD Take 1 Kateryna -Acetaminop 4-18 tablet by Sey bold hen 10-325 13:35: mouth - MG oral 39 daily as Externa Tablet needed for l pain Aspirin 81 2022-0 Yes 1{tbl} Take 1 Dre sey MG oral 3-08 tablet by Seybold Tablet 11:26: mouth - Delayed 27 Externa Response l Tizanidine 2022-0 Yes 1{tbl} Take 1 Dre sey HCl 4 MG 3-08 tablet by Seybol d oral Tablet 11:26: mouth at - 27 bedtime Externa l Aspirin 81 0 Yes 1{tbl} Take 1 Dre sey MG oral 3-08 tablet by Seybold Tablet 11:26: mouth - Delayed 27 Externa Response l Tizanidine 0 Yes 1{tbl} Take 1 Dre sey HCl 4 MG 3-08 tablet by Seybol d oral Tablet 11:26: mouth at - 27 bedtime Externa l Gabapentin 2022-0 Yes 1 in AM, 1 K elsey 300 MG oral 3-08 at noon, Seyb old Capsule 00:00: and 2 at - 00 night Externa l Gabapentin 2022-0 Yes 1 in AM, 1 K elsey 300 MG oral 3-08 at noon, Seyb old Capsule 00:00: and 2 at - 00 night Externa l Gabapentin 2022-0 202- No 1 in AM, 1 Kateryna 300 MG oral 3-08 04-28 at noon, Sey bold Capsule 00:00: 00:00 and 2 at - 00 :00 night Externa l Albuterol 2022-0 Yes [id number] 2{puff} Q.25D Inhale 2 Kateryna HFA 108 (90 2-23 puffs into Se ybold Base) 00:00: the lungs - MCG/ACT IN 00 every 6 [employer] a AERS hours as l needed for wheezing Albuterol 0 Yes [id number] 2{puff} Q.25D Inhale 2 Kateryna HFA 108 (90 2-23 puffs into Se ybold Base) 00:00: the lungs - MCG/ACT IN 00 every 6 [employer] a AERS hours as l needed for wheezing Albuterol Yes [id number] 2{puff} Q.25D Inhale 2 Kateryna HFA 108 (90 2-23 puffs into Se ybold Base) 00:00: the lungs - MCG/ACT IN 00 every 6 [employer] a AERS hours as l needed for wheezing Aspirin 81 0 Yes 1{tbl} Take 1 Dre sey MG oral 2-09 tablet by Seybold Tablet 09:34: mouth - Delayed 36 Externa Response l Tizanidine Yes 1{tbl} Take 1 Dre sey HCl 4 MG 2-09 tablet by Seybol d oral Tablet 09:34: mouth at - 36 bedtime Externa l Aspirin 81 Yes 1{tbl} Take 1 Dre sey MG oral 2-09 tablet by Seybold Tablet 09:34: mouth - Delayed 36 Externa Response l Tizanidine Yes 1{tbl} Take 1 Dre sey HCl 4 MG 2-09 tablet by Seybol d oral Tablet 09:34: mouth at - 36 bedtime Externa l Gabapentin 0 Yes 1 po q HS Ke lsey 300 MG oral 2-09 x 7 days, Sey bold Capsule 00:00: then 1 po - 00 BID x 7 Externa days, then l 1 po TID Gabapentin 0 Yes 1 po q HS Ke lsey 300 MG oral 2-09 x 7 days, Sey bold Capsule 00:00: then 1 po - 00 BID x 7 Externa days, then l 1 po TID Gabapentin 2022-0 2022- No 1 po q HS K elsey 300 MG oral -09 -07 x 7 days, Se ybold Capsule 00:00: 00:00 then 1 po - 00 :00 BID x 7 Externa days, then l 1 po TID Sertraline 0 Yes 50mg Take 50 mg K elsey HCl 50 MG 1-24 by mouth Seybol d oral Tablet 00:00: daily - 00 Externa l Zolpidem 0 Yes 12.5mg Take 12.5 Ke lsey Tartrate 1-24 mg by Seybold 12.5 MG 00:00: mouth at - oral Tab CR 00 bedtime Exter na l Sertraline 0 Yes 50mg Take 50 mg K elsey HCl 50 MG 1-24 by mouth Seybol d oral Tablet 00:00: daily - 00 Externa l Zolpidem 2022-0 Yes 12.5mg Take 12.5 Ke lsey Tartrate 1-24 mg by Seybold 12.5 MG 00:00: mouth at - oral Tab CR 00 bedtime Exter na l Sertraline 2022-0 Yes 50mg Take 50 mg K elsey HCl 50 MG 1-24 by mouth Seybol d oral Tablet 00:00: daily - 00 Externa l Zolpidem 2022-0 Yes 12.5mg Take 12.5 Ke lsey Tartrate 1-24 mg by Seybold 12.5 MG 00:00: mouth at - oral Tab CR 00 bedtime Exter na l Sertraline 2022-0 Yes 50mg Take 50 mg K elsey HCl 50 MG 1-24 by mouth Seybol d oral Tablet 00:00: daily - 00 Externa l Zolpidem 2022-0 Yes 12.5mg Take 12.5 Ke lsey Tartrate 1-24 mg by Seybold 12.5 MG 00:00: mouth at - oral Tab CR 00 bedtime Exter na l Sertraline 2022-0 Yes 50mg Take 1 Kelse y HCl 50 MG 1-24 tablet (50 Seyb old oral Tablet 00:00: mg total) - 00 by mouth Externa daily l Zolpidem 2022-0 Yes 12.5mg Take 1 Kelse y Tartrate 1-24 tablet Seybold 12.5 MG 00:00: (12.5 mg - oral Tab CR 00 total) by Ext gerber mouth at l bedtime Bupropion 2022-0 2022- No every 12 Dre sey HCL XL 150 1-18 01-18 hours Seybold MG OR TB24 13:30: 00:00 - 10 :00 Externa l Gabapentin 2022-0 2022- No 600mg Take 600 K elsey 600 MG oral 1-18 01-18 mg by Seybol d Tablet 13:27: 00:00 mouth 3 - 29 :00 times Externa daily l Aspirin 81 2022-0 Yes 1{tbl} Take 1 Dre sey MG oral 1-18 tablet by Seybold Tablet 13:13: mouth - Delayed 55 Externa Response l Tizanidine 2022-0 Yes 1{tbl} Take 1 Dre sey HCl 4 MG 1-18 tablet by Seybol d oral Tablet 13:13: mouth at - 55 bedtime Externa l HYDROcodone 2022-0 Yes [id number] 1{tbl} QD Take 1 Kateryna -Acetaminop 1-18 tablet by Rosalba siddiqi ([employer]) 00:00: mouth - 5-325 MG 00 daily as Externa oral Tablet needed for l pain Doxepin HCl 2022-0 Yes [id number] 50mg Take 1 K elsey 50 MG oral 1-18 capsule Seybol d Capsule 00:00: (50 mg - 00 total) by Externa mouth l daily Bupropion 2022-0 Yes [id number] 150mg QD Take 1 K elsey HCL XL 150 1-18 tablet Seybold MG OR TB24 00:00: (150 mg - 00 total) by Externa mouth l daily as needed (anxiety) HYDROcodone 2022-0 Yes [id number] 1{tbl} QD Take 1 Kateryna -Acetaminop 1-18 tablet by Rosalba siddiqi ([employer]) 00:00: mouth - 5-325 MG 00 daily as Externa oral Tablet needed for l pain Doxepin HCl 2022-0 Yes [id number] 50mg Take 1 K elsey 50 MG oral 1-18 capsule Seybol d Capsule 00:00: (50 mg - 00 total) by Externa mouth l daily Bupropion 2022-0 Yes [id number] 150mg QD Take 1 K elsey HCL XL 150 1-18 tablet Seybold MG OR TB24 00:00: (150 mg - 00 total) by Externa mouth l daily as needed (anxiety) HYDROcodone 2022-0 Yes [id number] 1{tbl} QD Take 1 Kateryna -Acetaminop 1-18 tablet by [employer] neeru ([employer]) 00:00: mouth - 5-325 MG 00 daily as Externa oral Tablet needed for l pain Doxepin HCl 2022-0 Yes [id number] 50mg Take 1 K elsey 50 MG oral 1-18 capsule Seybol d Capsule 00:00: (50 mg - 00 total) by Externa mouth l daily Bupropion 2022-0 Yes [id number] 150mg QD Take 1 K elsey HCL XL 150 1-18 tablet Seybold MG OR TB24 00:00: (150 mg - 00 total) by Externa mouth l daily as needed (anxiety) HYDROcodone 2022-0 Yes [id number] 1{tbl} QD Take 1 Kateryna -Acetaminop 1-18 tablet by Rosalba siddiqi ([employer]) 00:00: mouth - 5-325 MG 00 daily as Externa oral Tablet needed for l pain Doxepin HCl 2022-0 Yes [id number] 50mg Take 1 K elsey 50 MG oral 1-18 capsule Seybol d Capsule 00:00: (50 mg - 00 total) by Externa mouth l daily Bupropion 2022-0 Yes [id number] 150mg QD Take 1 K elsey HCL XL 150 1-18 tablet Seybold MG OR TB24 00:00: (150 mg - 00 total) by Externa mouth l daily as needed (anxiety) Doxepin HCl 2022-0 Yes [id number] 50mg Take 1 K elsey 50 MG oral 1-18 capsule Seybol d Capsule 00:00: (50 mg - 00 total) by Externa mouth l daily Bupropion 2022-0 Yes [id number] 150mg QD Take 1 K elsey HCL XL 150 1-18 tablet Seybold MG OR TB24 00:00: (150 mg - 00 total) by Externa mouth l daily as needed (anxiety) Doxepin HCl 2022-0 Yes [id number] 50mg Take 1 K elsey 50 MG oral 1-18 capsule Seybol d Capsule 00:00: (50 mg - 00 total) by Externa mouth l daily Bupropion 2022-0 Yes [id number] 150mg QD Take 1 K elsey HCL XL 150 1-18 tablet Seybold MG OR TB24 00:00: (150 mg - 00 total) by Externa mouth l daily as needed (anxiety) HYDROcodone 2022-0 2022- No [id number] 1{tbl} QD Take 1 Kateryna -Acetaminop 1-18 04-18 tablet by Se oliverio siddiqi ([employer]) 00:00: 00:00 mouth - 5-325 MG 00 :00 daily as Externa oral Tablet needed for l pain Amoxicillin 2022-0 Yes [id number] 1{tbl} Take 1 Kateryna -Pot 1-05 tablet by Disha Clavulanate 00:00: mouth 2 - 875-125 MG 00 times Externa oral Tablet daily l Benzonatate 2022-0 Yes [id number] 100mg Q.[id number] Take 1 Kateryna (Tessalon 11-14 [id number] capsule S eybold Perles) 100 00:00: 3D (100 mg - MG oral 00 total) by Externa Capsule mouth 3 l times daily as needed for cough Amoxicillin 0 2022- No [id number] 1{tbl} Take 1 Kateryna -Pot 11-14 tablet by Seybold Clavulanate 00:00: 00:00 mouth 2 - 875-125 MG 00 :00 times Externa oral Tablet daily l Benzonatate 0 2022- No [id number] 100mg Q.[id number] Take 1 Kateryna (Tessalon 11-14 [id number] capsule Seybold Perles) 100 00:00: 00:00 3D (100 mg - MG oral 00 :00 total) by Externa Capsule mouth 3 l times daily as needed for cough Bupropion 2021-11 Yes every 12 Keisha ey HCL XL 150 1-16 hours Seybold MG OR TB24 09:03: - 09 Externa l Tizanidine 2021-11 Yes 1{tbl} Take 1 Dre sey HCl 4 MG 1-16 tablet by Seybol d oral Tablet 09:03: mouth at - 09 bedtime Externa l Gabapentin 2021-11 Yes 600mg Take 600 Ke lsey 600 MG oral 1-16 mg by Seybold Tablet 09:03: mouth 3 - 09 times Externa daily l Bupropion 2021-11 Yes every 12 Keisha ey HCL XL 150 1-16 hours Seybold MG OR TB24 09:03: - 09 Externa l Tizanidine 2021-11 Yes 1{tbl} Take 1 Dre sey HCl 4 MG 1-16 tablet by Seybol d oral Tablet 09:03: mouth at - 09 bedtime Externa l Gabapentin 2021-11 Yes 600mg Take 600 Ke lsey 600 MG oral 1-16 mg by Seybold Tablet 09:03: mouth 3 - 09 times Externa daily l Aspirin 81 2021-11 Yes 1{tbl} Take 1 Dre sey MG oral 1-16 tablet by Seybold Tablet 09:00: mouth - Delayed 22 Externa Response l Aspirin 81 2021-11 Yes 1{tbl} Take 1 Dre sey MG oral 1-16 tablet by Seybold Tablet 09:00: mouth - Delayed 22 Externa Response l Aspirin 81 2021-11 Yes 1{tbl} Take 1 Dre sey MG oral 0-31 tablet by Seybold Tablet 09:30: mouth - Delayed 15 Externa Response l Bupropion 2021-11 Yes every 12 Keisha ey HCL XL 150 0-31 hours Seybold MG OR TB24 09:30: - 15 Externa l Tizanidine 2021-11 Yes 1{tbl} Take 1 Dre sey HCl 4 MG 0-31 tablet by Seybol d oral Tablet 09:30: mouth at - 15 bedtime Externa l Gabapentin 2021-11 Yes 600mg Take 600 Ke lsey 600 MG oral 0-31 mg by Seybold Tablet 09:30: mouth 3 - 15 times Externa daily l Enalapril 2021-11 Yes [id number] 10mg Take 1 Ke lsey Maleate 10 0-31 tablet (10 Sey bold MG oral 00:00: mg total) - Tablet 00 by mouth Externa daily l Pantoprazol 2021-11 Yes [id number] 40mg Take 1 Kateryna e Sodium 40 0-31 tablet (40 Se ybold MG oral 00:00: mg total) - Tablet 00 by mouth Externa Delayed daily l Response Enalapril 2021-11 Yes [id number] 10mg Take 1 Ke lsey Maleate 10 0-31 tablet (10 Sey bold MG oral 00:00: mg total) - Tablet 00 by mouth Externa daily l Pantoprazol 2021-11 Yes [id number] 40mg Take 1 Kateryna e Sodium 40 0-31 tablet (40 Se ybold MG oral 00:00: mg total) - Tablet 00 by mouth Externa Delayed daily l Response Enalapril 2021-11 Yes [id number] 10mg Take 1 Ke lsey Maleate 10 0-31 tablet (10 Sey bold MG oral 00:00: mg total) - Tablet 00 by mouth Externa daily l Pantoprazol 2021-11 Yes [id number] 40mg Take 1 Kateryna e Sodium 40 0-31 tablet (40 Se ybold MG oral 00:00: mg total) - Tablet 00 by mouth Externa Delayed daily l Response Enalapril 2021-11 Yes [id number] 10mg Take 1 Ke lsey Maleate 10 0-31 tablet (10 Sey bold MG oral 00:00: mg total) - Tablet 00 by mouth Externa daily l Pantoprazol 2021-11 Yes [id number] 40mg Take 1 Kateryna e Sodium 40 0-31 tablet (40 Se ybold MG oral 00:00: mg total) - Tablet 00 by mouth Externa Delayed daily l Response Enalapril 2021-11 Yes [id number] 10mg Take 1 Ke lsey Maleate 10 0-31 tablet (10 Sey bold MG oral 00:00: mg total) - Tablet 00 by mouth Externa daily l Pantoprazol 2021-11 Yes [id number] 40mg Take 1 Kateryna e Sodium 40 0-31 tablet (40 Se ybold MG oral 00:00: mg total) - Tablet 00 by mouth Externa Delayed daily l Response Enalapril 2021-11 Yes [id number] 10mg Take 1 Ke lsey Maleate 10 0-31 tablet (10 Sey bold MG oral 00:00: mg total) - Tablet 00 by mouth Externa daily l Pantoprazol 2021-11 Yes [id number] 40mg Take 1 Kateryna e Sodium 40 0-31 tablet (40 Se ybold MG oral 00:00: mg total) - Tablet 00 by mouth Externa Delayed daily l Response Enalapril 2021-11 Yes [id number] 10mg Take 1 Ke lsey Maleate 10 0-31 tablet (10 Sey bold MG oral 00:00: mg total) - Tablet 00 by mouth Externa daily l Pantoprazol 2021-11 Yes [id number] 40mg Take 1 Kateryna e Sodium 40 0-31 tablet (40 Se ybold MG oral 00:00: mg total) - Tablet 00 by mouth Externa Delayed daily l Response Enalapril 2021-11 Yes [id number] 10mg Take 1 Ke lsey Maleate 10 0-31 tablet (10 Sey bold MG oral 00:00: mg total) - Tablet 00 by mouth Externa daily l Pantoprazol 2021-11 Yes [id number] 40mg Take 1 Kateryna e Sodium 40 0-31 tablet (40 Se ybold MG oral 00:00: mg total) - Tablet 00 by mouth Externa Delayed daily l Response Enalapril 0 2021- No [id number] 20mg Take 1 K elsey Maleate 20 9-19 10-31 tablet (20 Se ybold MG oral 00:00: 00:00 mg total) - Tablet 00 :00 by mouth Externa daily l OrthoVisc OrthoVisc 2021-0 No 15mg Com mon 07-09 Spirit 00:00: - [facility] Blood 0 Yes Use Kateryna Glucose 8-30 monitor to Seybol d Monitoring 00:00: check - Suppl 00 blood Externa (Blood sugar l Glucose Monitor System) w/Device does not apply Kit Blood 2021-0 Yes Use to Kateryna Glucose 8-30 check FSBS Seybol d Monitoring 00:00: as needed. - Suppl 00 Externa (Blood l Glucose Monitor System) w/Device does not apply Kit Glucose 2021-0 Yes [id number] 1{each} 1 each by Kateryna Blood in 8-30 other Seybold vitro Strip 00:00: route - 00 daily Use Externa 1 as l directed twice daily to check blood glucose. GNP Sterile 2021-0 Yes 1{each} 1 each by Kateryna Lancets 33G 8-30 does not Seyb old does not 00:00: apply - apply Misc 00 route 2 to Ext gerber 3 times l daily Blood 2021-0 Yes Use Kateryna Glucose 8-30 monitor to Seybol d Monitoring 00:00: check - Suppl 00 blood Externa (Blood sugar l Glucose Monitor System) w/Device does not apply Kit Blood 2021-0 Yes Use to Katreyna Glucose 8-30 check FSBS Seybol d Monitoring 00:00: as needed. - Suppl 00 Externa (Blood l Glucose Monitor System) w/Device does not apply Kit Glucose 2021-0 Yes [id number] 1{each} 1 each by Kateryna Blood in 8-30 other Seybold vitro Strip 00:00: route - 00 daily Use Externa 1 as l directed twice daily to check blood glucose. GNP Sterile 2021-0 Yes 1{each} 1 each by Kateryna Lancets 33G 8-30 does not Seyb old does not 00:00: apply - apply Misc 00 route 2 to Ext gerber 3 times l daily Blood 2021-0 Yes Use Kateryna Glucose 8-30 monitor to Seybol d Monitoring 00:00: check - Suppl 00 blood Externa (Blood sugar l Glucose Monitor System) w/Device does not apply Kit Blood Yes Use to Kateryna Glucose 8-30 check FSBS Seybol d Monitoring 00:00: as needed. - Suppl 00 Externa (Blood l Glucose Monitor System) w/Device does not apply Kit Glucose Yes [id number] 1{each} 1 each by Kateryna Blood in 30 other Seybold vitro Strip 00:00: route - 00 daily Use Externa 1 as l directed twice daily to check blood glucose. GNP Sterile Yes 1{each} 1 each by Kateryna Lancets 33G 830 does not Seyb old does not 00:00: apply - apply Misc 00 route 2 to Ext gerber 3 times l daily Blood 2021-0 2022- No Use Kateryna Glucose 8-30 11-27 monitor to Seybo ld Monitoring 00:00: 00:00 check - Suppl 00 :00 blood Externa (Blood sugar l Glucose Monitor System) w/Device does not apply Kit Blood 2022- No Use to Kateryna Glucose 8-30 18 check FSBS Seybo ld Monitoring 00:00: 00:00 as needed. - Suppl 00 :00 Externa (Blood l Glucose Monitor System) w/Device does not apply Kit Glucose 202- No [id number] 1{each} 1 each by Kateryna Blood in 8-09 12- other Seybold vitro Strip 00:00: 00:00 route - 00 :00 daily Use Externa 1 as l directed twice daily to check blood glucose. GNP Sterile 2022- No 1{each} 1 each by Kateryna Lancets 33G 8-30 18 does not Sey bold does not 00:00: 00:00 apply - apply Misc 00 :00 route 2 to Ext gerber 3 times l daily Metformin Yes [id number] 1000mg Take 1 Kateryna HCl 1000 MG 07-07 tablet Seybol d oral Tablet 00:00: (1,000 mg - 00 total) by Externa mouth in l the morning and 1 tablet (1,000 mg total) in the evening. Take with meals. Metoprolol Yes [id number] 25mg Take 1 K elsey Tartrate 25 8-28 tablet (25 Se ybold MG oral 00:00: mg total) - Tablet 00 by mouth 2 Externa times l daily Atorvastati 2021-0 Yes [id number] 40mg Take 1 Kateryna n Calcium 8-28 tablet (40 Seyb old 40 MG oral 00:00: mg total) - Tablet 00 by mouth Externa daily l Metformin 2021-0 Yes [id number] 1000mg Take 1 Kateryna HCl 1000 MG 8-28 tablet Seybol d oral Tablet 00:00: (1,000 mg - 00 total) by Externa mouth in l the morning and 1 tablet (1,000 mg total) in the evening. Take with meals. Metoprolol 0 Yes [id number] 25mg Take 1 K elsey Tartrate 25 8-28 tablet (25 Se ybold MG oral 00:00: mg total) - Tablet 00 by mouth 2 Externa times l daily Atorvastati 0 Yes [id number] 40mg Take 1 Kateryna n Calcium 8-28 tablet (40 Seyb old 40 MG oral 00:00: mg total) - Tablet 00 by mouth Externa daily l Metformin 2021-0 Yes [id number] 1000mg Take 1 Kateryna HCl 1000 MG 8-28 tablet Seybol d oral Tablet 00:00: (1,000 mg - 00 total) by Externa mouth in l the morning and 1 tablet (1,000 mg total) in the evening. Take with meals. Metoprolol 2021-0 Yes [id number] 25mg Take 1 K elsey Tartrate 25 8-28 tablet (25 Se ybold MG oral 00:00: mg total) - Tablet 00 by mouth 2 Externa times l daily Atorvastati 2021-0 Yes [id number] 40mg Take 1 Kateryna n Calcium 8-28 tablet (40 Seyb old 40 MG oral 00:00: mg total) - Tablet 00 by mouth Externa daily l Metformin 2021-0 Yes [id number] 1000mg Take 1 Kateryna HCl 1000 MG 8-28 tablet Seybol d oral Tablet 00:00: (1,000 mg - 00 total) by Externa mouth in l the morning and 1 tablet (1,000 mg total) in the evening. Take with meals. Metoprolol 2021-0 Yes [id number] 25mg Take 1 K elsey Tartrate 25 8-28 tablet (25 Se ybold MG oral 00:00: mg total) - Tablet 00 by mouth 2 Externa times l daily Atorvastati 0 Yes [id number] 40mg Take 1 Kateryna n Calcium 8-28 tablet (40 Seyb old 40 MG oral 00:00: mg total) - Tablet 00 by mouth Externa daily l Metformin 2021-0 Yes [id number] 1000mg Take 1 Kateryna HCl 1000 MG 8-28 tablet Seybol d oral Tablet 00:00: (1,000 mg - 00 total) by Externa mouth in l the morning and 1 tablet (1,000 mg total) in the evening. Take with meals. Metoprolol 0 Yes [id number] 25mg Take 1 K elsey Tartrate 25 8-28 tablet (25 Se ybold MG oral 00:00: mg total) - Tablet 00 by mouth 2 Externa times l daily Atorvastati 0 Yes [id number] 40mg Take 1 Kateryna n Calcium 8-28 tablet (40 Seyb old 40 MG oral 00:00: mg total) - Tablet 00 by mouth Externa daily l Metformin 2021-0 Yes [id number] 1000mg Take 1 Kateryna HCl 1000 MG 8-28 tablet Seybol d oral Tablet 00:00: (1,000 mg - 00 total) by Externa mouth in l the morning and 1 tablet (1,000 mg total) in the evening. Take with meals. Metoprolol 0 Yes [id number] 25mg Take 1 K elsey Tartrate 25 8-28 tablet (25 Se ybold MG oral 00:00: mg total) - Tablet 00 by mouth 2 Externa times l daily Atorvastati 2021-0 Yes [id number] 40mg Take 1 Kateryna n Calcium 8-28 tablet (40 Seyb old 40 MG oral 00:00: mg total) - Tablet 00 by mouth Externa daily l Metformin 2021-0 Yes [id number] 1000mg Take 1 Kateryna HCl 1000 MG 8-28 tablet Seybol d oral Tablet 00:00: (1,000 mg - 00 total) by Externa mouth in l the morning and 1 tablet (1,000 mg total) in the evening. Take with meals. Metoprolol 2021-0 Yes [id number] 25mg Take 1 K elsey Tartrate 25 8-28 tablet (25 Se ybold MG oral 00:00: mg total) - Tablet 00 by mouth 2 Externa times l daily Atorvastati Yes [id number] 40mg Take 1 Kateryna n Calcium 8-28 tablet (40 Seyb old 40 MG oral 00:00: mg total) - Tablet 00 by mouth Externa daily l Metformin Yes [id number] 1000mg Take 1 Kateryna HCl 1000 MG 8-28 tablet Seybol d oral Tablet 00:00: (1,000 mg - 00 total) by Externa mouth in l the morning and 1 tablet (1,000 mg total) in the evening. Take with meals. Metoprolol Yes [id number] 25mg Take 1 K elsey Tartrate 25 8-28 tablet (25 Se ybold MG oral 00:00: mg total) - Tablet 00 by mouth 2 Externa times l daily Atorvastati Yes [id number] 40mg Take 1 Kateryna n Calcium 8-28 tablet (40 Seyb old 40 MG oral 00:00: mg total) - Tablet 00 by mouth Externa daily l Metformin Yes [id number] 1000mg Take 1 Kateryna HCl 1000 MG 8-28 tablet Seybol d oral Tablet 00:00: (1,000 mg - 00 total) by Externa mouth in l the morning and 1 tablet (1,000 mg total) in the evening. Take with meals. Atorvastati Yes [id number] 40mg Take 1 Kateyrna n Calcium 8-28 tablet (40 Seyb old 40 MG oral 00:00: mg total) - Tablet 00 by mouth Externa daily l Applicators Yes Use swab Ke lsey (Q-Tips/Sin 8-25 to clean Seyb old gle-Tip) 00:00: site - does not 00 Externa apply SWAB l Applicators Yes Use swab Ke lsey (Q-Tips/Sin 8-25 to clean Seyb old gle-Tip) 00:00: site - does not 00 Externa apply SWAB l Applicators Yes Use swab Ke lsey (Q-Tips/Sin 8-25 to clean Seyb old gle-Tip) 00:00: site - does not 00 Externa apply SWAB l Applicators 2021-0 2022- No Use swab K jadiel (Q-Tips/Sin 07-04 to clean y bold gle-Tip) 00:00: 00:00 site - does not 00 :00 Externa apply SWAB l OrthoVisc OrthoVisc No 15mg Com 07-02 Spirit 00:00: - [facility] OrthoVisc OrthoVisc 2021-0 No 15mg Com 06-26 [facility] 00:00: - [facility] Duloxetine 2021-0 Yes 120mg Take 120 Ke lsey HCl 60 MG 6-02 mg by Seybold oral Cap DR 00:00: mouth - Particles 00 daily Externa l Eszopiclone Yes TAKE 1 Keisha ey 2 MG oral 6-02 TABLET BY Seybo ld Tablet 00:00: MOUTH ONCE - 00 DAILY Externa IMMEDIATEL l Y BEFORE BEDTIME NEEDED Duloxetine 0 Yes 120mg Take 120 Ke lsey HCl 60 MG 6-02 mg by Seybold oral Cap DR 00:00: mouth - Particles 00 daily Externa l Eszopiclone 0 Yes TAKE 1 Keisha ey 2 MG oral 6-02 TABLET BY Seybo ld Tablet 00:00: MOUTH ONCE - 00 DAILY Externa IMMEDIATEL l Y BEFORE BEDTIME NEEDED Duloxetine 2021-0 Yes 120mg Take 120 Ke lsey HCl 60 MG 6-02 mg by Seybold oral Cap DR 00:00: mouth - Particles 00 daily Externa l Eszopiclone 0 Yes TAKE 1 Keisha ey 2 MG oral 6-02 TABLET BY Seybo ld Tablet 00:00: MOUTH ONCE - 00 DAILY Externa IMMEDIATEL l Y BEFORE BEDTIME NEEDED Duloxetine 0 Yes 120mg Take 120 Ke lsey HCl 60 MG 6-02 mg by Seybold oral Cap DR 00:00: mouth - Particles 00 daily Externa l Eszopiclone 0 Yes TAKE 1 Keisha ey 2 MG oral 6-02 TABLET BY Seybo ld Tablet 00:00: MOUTH ONCE - 00 DAILY Externa IMMEDIATEL l Y BEFORE BEDTIME NEEDED Duloxetine 0 Yes 120mg Take 120 Ke lsey HCl 60 MG 6-02 mg by Seybold oral Cap DR 00:00: mouth - Particles 00 daily Externa l Eszopiclone Yes TAKE 1 Keisha ey 2 MG oral 6-02 TABLET BY Seybo ld Tablet 00:00: MOUTH ONCE - 00 DAILY Externa IMMEDIATEL l Y BEFORE BEDTIME NEEDED Eszopiclone 0 Yes TAKE 1 Keisha ey 2 MG oral 6-02 TABLET BY Seybo ld Tablet 00:00: MOUTH ONCE - 00 DAILY Externa IMMEDIATEL l Y BEFORE BEDTIME NEEDED Duloxetine Yes 120mg Take 120 Ke lsey HCl 60 MG 6-02 mg by Seybold oral Cap 00:00: mouth - Particles 00 daily Externa l Eszopiclone Yes TAKE 1 Keisha ey 2 MG oral 6-02 TABLET BY Seybo ld Tablet 00:00: MOUTH ONCE - 00 DAILY Externa IMMEDIATEL l Y BEFORE BEDTIME NEEDED Eszopiclone 0 2022- No TAKE 1 Dre sey 2 MG oral 6-02 04-18 TABLET BY Seyb old Tablet 00:00: 00:00 MOUTH ONCE - 00 :00 DAILY Externa IMMEDIATEL l Y BEFORE BEDTIME NEEDED Flomax 0.4 Flomax 0.4 0 2022- No 1{capsu QD Flomax 0.4 MG MG 5-19 08-20 le} MG 00:00: 00:00 00 :00 Bupivicaine Bupivicaine 0 No 2.5mg [place] 4-19 [facility] 00:00: - [facility] Kenalog Kenalog 0 No 40mg Common (Triamcinol (Triamcinol 4-19 S pirit one) one) 00:00: - [facility] Trazodone 0 Yes 1{tbl} QD Take 1 Keisha ey HCl 50 MG 4-18 tablet by Seybo ld oral Tablet 00:00: mouth - 00 nightly as Externa needed l Trazodone 0 Yes 1{tbl} QD Take 1 Keisha ey HCl 50 MG 4-18 tablet by Seybo ld oral Tablet 00:00: mouth - 00 nightly as Externa needed l Trazodone 0 Yes 1{tbl} QD Take 1 Keisha ey HCl 50 MG 4-18 tablet by Seybo ld oral Tablet 00:00: mouth - 00 nightly as Externa needed l Trazodone 2022-0 Yes 1{tbl} QD Take 1 Keisha ey HCl 50 MG 4-18 tablet by Seybo ld oral Tablet 00:00: mouth - 00 nightly as Externa needed l Trazodone 2022-0 Yes 1{tbl} QD Take 1 Keisha ey HCl 50 MG 4-18 tablet by Seybo ld oral Tablet 00:00: mouth - 00 nightly as Externa needed l Trazodone 2022-0 Yes 1{tbl} QD Take 1 Keisha ey HCl 50 MG 4-18 tablet by Seybo ld oral Tablet 00:00: mouth - 00 nightly as Externa needed l Alprazolam 2022-0 Yes .5mg QD Take 0.5 Dre sey 0.5 MG oral 4-04 mg by Seybold Tablet 00:00: mouth - 00 daily as Externa needed l Alprazolam 2022-0 Yes .5mg QD Take 0.5 Dre sey 0.5 MG oral 4-04 mg by Seybold Tablet 00:00: mouth - 00 daily as Externa needed l Alprazolam 2022-0 Yes .5mg QD Take 0.5 Dre sey 0.5 MG oral 4-04 mg by Seybold Tablet 00:00: mouth - 00 daily as Externa needed l Alprazolam 2022-0 Yes .5mg QD Take 0.5 Dre sey 0.5 MG oral 4-04 mg by Seybold Tablet 00:00: mouth - 00 daily as Externa needed l Alprazolam 2022-0 Yes .5mg QD Take 0.5 Dre sey 0.5 MG oral 4-04 mg by Seybold Tablet 00:00: mouth - 00 daily as Externa needed l Alprazolam 2022-0 Yes .5mg QD Take 0.5 Dre sey 0.5 MG oral 4-04 mg by Seybold Tablet 00:00: mouth - 00 daily as Externa needed l Alprazolam 2022-0 Yes .5mg QD Take 0.5 Dre sey 0.5 MG oral 4-04 mg by Seybold Tablet 00:00: mouth - 00 daily as Externa needed l Alprazolam 2022-0 Yes .5mg QD Take 1 Kelse y 0.5 MG oral 4-04 tablet Seybol d Tablet 00:00: (0.5 mg - 00 total) by Externa mouth l daily as needed Alprazolam Yes .5mg QD Take 0.5 Dre sey 0.5 MG oral 4-04 mg by Seybold Tablet 00:00: mouth - 00 daily as Externa needed l Atorvastati Atorvastati No 1{table QD Atorvastat n Calcium n Calcium 3-23 t} in Calcium 40 MG 40 MG 00:00: 40 MG 00 Nitrofurant Yes [id number] 100mg Take 1 Kateryna oin Monohyd 1-20 capsule Seybo ld Macro 100 00:00: (100 mg - MG oral 00 total) by Externa Capsule mouth 2 l times daily Nitrofurant Yes [id number] 100mg Take 1 Kateryna oin Monohyd 1-20 capsule Seybo ld Macro 100 00:00: (100 mg - MG oral 00 total) by Externa Capsule mouth 2 l times daily Nitrofurant Yes [id number] 100mg Take 1 Kateryna oin Monohyd 1-20 capsule Seybo ld Macro 100 00:00: (100 mg - MG oral 00 total) by Externa Capsule mouth 2 l times daily Nitrofurant 0 2022- No [id number] 100mg Take 1 Kateryna oin Monohyd 1-20 01-18 capsule Seyb old Macro 100 00:00: 00:00 (100 mg - MG oral 00 :00 total) by Externa Capsule mouth 2 l times daily Aspirin Yes 1{tbl} Take 1 Kateryna (Aspir-Low) 1-17 tablet by Sey bold 81 MG oral 11:06: mouth Tablet 52 Delayed Response Bupropion 2021-0 Yes every 12 Keisha ey HCL XL 150 1-17 hours Seybold MG OR TB24 11:06: 52 Tizanidine 2021-0 Yes 1{tbl} Take 1 Dre sey HCl 4 MG 1-17 tablet by Seybol d oral Tablet 11:06: mouth at 52 bedtime Metformin 2021-0 Yes 1000mg Take 1,000 Kateryna HCl 1000 MG 1-17 mg by Seybold oral Tablet 11:06: mouth 2 52 times daily (with meals) Gabapentin 2021-0 Yes 600mg Take 600 Ke lsey 600 MG oral 1-17 mg by Seybold Tablet 11:06: mouth 3 52 times daily Albuterol 2021-0 Yes [id number] 2{puff} Q.25D Inhale 2 Kateryna HFA 108 (90 1-17 puffs into Se ybold Base) 00:00: the lungs - MCG/ACT IN 00 every 6 [employer] a AERS hours as l needed for wheezing Albuterol 0 Yes [id number] 2{puff} Q.25D Inhale 2 Kateryna HFA 108 (90 1-17 puffs into Se ybold Base) 00:00: the lungs - MCG/ACT IN 00 every 6 [employer] a AERS hours as l needed for wheezing Albuterol 0 Yes [id number] 2{puff} Q.25D Inhale 2 Kateryna HFA 108 (90 1-17 puffs into Se ybold Base) 00:00: the lungs - MCG/ACT IN 00 every 6 [employer] a AERS hours as l needed for wheezing Albuterol 2021-0 Yes [id number] 2{puff} Q.25D Inhale 2 Kateryna HFA 108 (90 1-17 puffs into Se ybold Base) 00:00: the lungs - MCG/ACT IN 00 every 6 [employer] a AERS hours as l needed for wheezing Albuterol 2021-0 Yes [id number] 2{puff} Q.25D Inhale 2 Kateryna HFA 108 (90 1-17 puffs into Se ybold Base) 00:00: the lungs - MCG/ACT IN 00 every 6 [employer] a AERS hours as l needed for wheezing Albuterol 2021-0 Yes [id number] 2{puff} Q6H Inhale 2 Kateryna HFA 108 (90 1-17 puffs into Se ybold Base) 00:00: the lungs MCG/ACT IN 00 every 6 AERS hours as needed for wheezing Albuterol 2021-0 Yes [id number] 2{puff} Q.25D Inhale 2 Kateryna HFA 108 (90 1-17 puffs into Se ybold Base) 00:00: the lungs - MCG/ACT IN 00 every 6 [employer] a AERS hours as l needed for wheezing Lidocaine 0 Yes USE Kateryna Pain Relief 1-05 DIRECTED Seyb old 4 % apply 00:00: 12 HOURS - externally 00 ON AND 12 Exte rna Patch HOURS OFF l Lidocaine 2021-0 Yes USE Kateryna Pain Relief 1-05 DIRECTED Seyb old 4 % apply 00:00: 12 HOURS - externally 00 ON AND 12 Exte rna Patch HOURS OFF l Lidocaine 2021-0 Yes USE Kateryna Pain Relief 1-05 DIRECTED Seyb old 4 % apply 00:00: 12 HOURS - externally 00 ON AND 12 Exte rna Patch HOURS OFF l Lidocaine 2021-0 Yes USE Kateryna Pain Relief 1-05 DIRECTED Seyb old 4 % apply 00:00: 12 HOURS externally 00 ON AND 12 Patch HOURS OFF Lidocaine 2021-0 Yes USE Kateryna Pain Relief 1-05 DIRECTED Seyb old 4 % apply 00:00: 12 HOURS - externally 00 ON AND 12 Exte rna Patch HOURS OFF l Lidocaine 2021-0 Yes USE Kateryna Pain Relief 1-05 DIRECTED Seyb old 4 % apply 00:00: 12 HOURS - externally 00 ON AND 12 Exte rna Patch HOURS OFF l Lidocaine 2021-0 Yes USE Kateryna Pain Relief 1-05 DIRECTED Seyb old 4 % apply 00:00: 12 HOURS - externally 00 ON AND 12 Exte rna Patch HOURS OFF l Lidocaine 2021-0 Yes USE Kateryna Pain Relief 1-05 DIRECTED Seyb old 4 % apply 00:00: 12 HOURS - externally 00 ON AND 12 Exte rna Patch HOURS OFF l Lidocaine 2021-0 Yes USE Kateryna Pain Relief 1-05 DIRECTED Seyb old 4 % apply 00:00: 12 HOURS - externally 00 ON AND 12 Exte rna Patch HOURS OFF l Lidocaine 2021-0 Yes USE Kateryna Pain Relief 1-05 DIRECTED Seyb old 4 % apply 00:00: 12 HOURS - externally 00 ON AND 12 Exte rna Patch HOURS OFF l Metoprolol 2020-11- No 50mg Take 50 mg Kateryna Tartrate 50 -15 -17 by mouth 2 S eybold MG oral 00:00: 00:00 times Tablet 00 :00 daily FOR 90 DAYS Doxepin HCl 2020-11 Yes Kateryna 50 MG oral 1-27 Seybold Capsule 00:00: - 00 Externa l Doxepin HCl 2021-1 Yes Kateryna 50 MG oral 1-27 Seybold Capsule 00:00: - 00 Externa l Doxepin HCl 1 Yes Kateryna 50 MG oral -27 Seybold Capsule 00:00: 00 Doxepin HCl 2020-1 Yes Kateryna 50 MG oral -27 Seybold Capsule 00:00: - 00 Externa l Doxepin HCl 1 3- No Kelse y 50 MG oral 12-06 Seybold Capsule 00:00: 00:00 - 00 :00 Externa l Zolpidem 2020-0 Yes 12.5mg Take 12.5 Ke lsey Tartrate 4-12 mg by Seybold 12.5 MG 00:00: mouth at - oral Tab CR 00 bedtime Exter na l Zolpidem 2020-0 Yes 12.5mg Take 12.5 Ke lsey Tartrate 4-12 mg by Seybold 12.5 MG 00:00: mouth at - oral Tab CR 00 bedtime Exter na l Zolpidem 2020-0 Yes 12.5mg Take 12.5 Ke lsey Tartrate 4-12 mg by Seybold 12.5 MG 00:00: mouth at oral Tab CR 00 bedtime Zolpidem 2020-0 Yes 12.5mg Take 12.5 Ke lsey Tartrate 4-12 mg by Seybold 12.5 MG 00:00: mouth at - oral Tab CR 00 bedtime Exter na l Zolpidem 2020-0 3- No 12.5mg Take 12.5 K elsey Tartrate 4-12 01-18 mg by Seybold 12.5 MG 00:00: 00:00 mouth at - oral Tab CR 00 :00 bedtime Exter na l Lidocaine 5 2020-0 Yes APPLY Kelse y % apply 4-02 EXTERNALLY Seybol d externally 00:00: TO LOWER - Ointment 00 BACK PAIN [employer] a SENSITIVE l AREA TWICE A DAY NEEDED Lidocaine 5 2020-0 Yes APPLY Kelse y % apply 4-02 EXTERNALLY Seybol d externally 00:00: TO LOWER - Ointment 00 BACK PAIN [employer] a SENSITIVE l AREA TWICE A DAY NEEDED Lidocaine 5 2020-0 Yes APPLY Kelse y % apply 4-02 EXTERNALLY Seybol d externally 00:00: TO LOWER Ointment 00 BACK PAIN SENSITIVE AREA TWICE A DAY NEEDED Lidocaine 5 Yes APPLY Kelse y % apply 02-09 EXTERNALLY Seybol d externally 00:00: TO LOWER - Ointment 00 BACK PAIN [employer] a SENSITIVE l AREA TWICE A DAY NEEDED Lidocaine 5 2020-0 2023- No APPLY Keisha ey % apply 402 11-27 EXTERNALLY Seybo ld externally 00:00: 00:00 TO LOWER - Ointment 00 :00 BACK PAIN [employer] a SENSITIVE l AREA TWICE A DAY NEEDED HYDROcodone Yes TAKE 1 Keisha ey -Acetaminop 3-24 TABLET BY Rosalba siddiqi ([facility]) 00:00: MOUTH - 5-325 MG 00 TWICE Externa oral Tablet DAILY l NEEDED FOR 15 DAYS HYDROcodone Yes TAKE 1 Keisha ey -Acetaminop 3-24 TABLET BY Rosalba siddiqi ([facility]) 00:00: MOUTH - 5-325 MG 00 TWICE Externa oral Tablet DAILY l NEEDED FOR 15 DAYS HYDROcodone Yes TAKE 1 Keisha ey -Acetaminop 3-24 TABLET BY Rosalba siddiqi ([facility]) 00:00: MOUTH 5-325 MG 00 TWICE oral Tablet DAILY NEEDED FOR 15 DAYS HYDROcodone Yes TAKE 1 Keisha ey -Acetaminop 3-24 TABLET BY Rosalba siddiqi ([facility]) 00:00: MOUTH - 5-325 MG 00 TWICE Externa oral Tablet DAILY l NEEDED FOR 15 DAYS HYDROcodone 2020-0 3- No TAKE 1 Dre sey -Acetaminop 3-24 01-18 TABLET BY Se oliverio siddiqi ([facility]) 00:00: 00:00 MOUTH - 5-325 MG 00 :00 TWICE Externa oral Tablet DAILY l NEEDED FOR 15 DAYS Simvastatin 0 Yes every 24 Ke lsey 40 MG oral 3-02 hours Seybold Tablet 00:00: 00 Metoprolol Yes 1{tbl} Take 1 Dre sey Tartrate 50 2-26 tablet by Sey bold MG oral 00:00: mouth Tablet 00 Enalapril Yes 1{tbl} Take 1 Keisha ey Maleate 20 2-19 tablet by Seyb old MG oral 00:00: mouth Tablet 00 traZODone traZODone No 1{table QD traZODone HCl 50 MG HCl 50 MG t_at_be HCl 50 MG dtime_a s_neede d} Clotrimazol Clotrimazol No BID Clotrimazo e-Betametha e-Betametha le-Betamet sone 1-0.05 sone 1-0.05 hasone % % 1-0.05 % Diclofenac Diclofenac No Diclofenac Gabapentin Gabapentin No 1{capsu BID Gabapentin 300 MG 300 MG le} 300 MG Zolpidem Zolpidem No 1{table QD Zolpidem Tartrate ER Tartrate ER t_at_be Tartrate 12.5 MG 12.5 MG dtime_a ER 12.5 MG s_neede d} Doxepin HCl Doxepin HCl No 1{capsu QD Doxepin 50 MG 50 MG le_at_b HCl 50 MG edtime} Sertraline Sertraline No 1{table QD Sertraline HCl 50 MG HCl 50 MG t} HCl 50 MG Doxepin HCl Doxepin HCl No 1{capsu QD Doxepin 50 MG 50 MG le_at_b HCl 50 MG edtime} Mirtazapine Mirtazapine No 1{table QD Mirtazapin 7.5 MG 7.5 MG t_at_be e 7.5 MG dtime} Enalapril Enalapril No Enalapril Maleate 20 Maleate 20 Maleate 20 MG MG MG Metoprolol Metoprolol No 1{table BID Metoprolol Tartrate 50 Tartrate 50 t} Tartrate MG MG 50 MG Pantoprazol Pantoprazol No 1{table QD Pantoprazo e Sodium 40 e Sodium 40 t} le Sodium MG MG 40 MG glipiZIDE glipiZIDE No 1{table QD glipiZIDE ER 5 MG ER 5 MG t_with_ ER 5 MG food} Aspir-Low Aspir-Low No 1{table QD Aspir-Low 81 MG 81 MG t} 81 MG buPROPion buPROPion No buPROPion HCl ER (XL) HCl ER (XL) HCl ER (XL) HYDROcodone HYDROcodone No HYDROcodon -Acetaminop -Acetaminop e-Acetamin hen 10-325 hen 10-325 ophen MG MG 10-325 MG ALPRAZolam ALPRAZolam No ALPRAZolam 0.5 MG 0.5 MG 0.5 MG Albuterol Albuterol No Albuterol Wellbutrin Wellbutrin No 1{table QD Wellbutrin XL 150 MG XL 150 MG t_in_th XL 150 MG e_morni ng} tiZANidine tiZANidine No tiZANidine HCl 4 MG HCl 4 MG HCl 4 MG metFORMIN metFORMIN No 1{table BID metFORMIN HCl 1000 MG HCl 1000 MG t_with_ HCl 1000 a_meal} MG Immunizations Ordered Immunization Filled Immunization Date Status Commen ts Source Name Name Influenza Virus 2022-09-04 Completed Kateryna Se ybold Vaccine, Quad, Egg 00:00:00 - Exte rnal Free Influenza Virus 2022-09-04 Completed Kateryna Se ybold Vaccine, Quad, Egg 00:00:00 - Exte rnal Free Influenza Virus 2022-09-04 Completed Kateryna Se ybold Vaccine, Quad, Egg 00:00:00 - Exte rnal Free Influenza Virus 2022-09-04 Completed Kateryna Se ybold Vaccine, Quad, Egg 00:00:00 - Exte rnal Free Influenza Virus 2022-09-04 Completed Kateryna Se ybold Vaccine, Quad, Egg 00:00:00 - Exte rnal Free Influenza Virus 2022-09-04 Completed Kateryna Se ybold Vaccine, Quad, Egg 00:00:00 - Exte rnal Free Influenza Virus 2022-09-04 Completed Kateryna Se ybold Vaccine, Quad, Egg 00:00:00 - Exte rnal Free Influenza Virus 2022-09-04 Completed Kateryna Se ybold Vaccine, Quad, Egg 00:00:00 - Exte rnal Free Influenza Virus 2022-09-04 Completed Kateryna Se ybold Vaccine, Quad, Egg 00:00:00 - Exte rnal Free Covid-19 Vaccine 2021-11-08 Completed Kateryna fair Moderna (Spikevax), 00:00:00 - Ext ernal Mrna-lnp, Tito Protein, Pf Covid-19 Vaccine 2021-11-08 Completed Kateryna fair Moderna (Spikevax), 00:00:00 - Ext ernal Mrna-lnp, Tito Protein, Pf Covid-19 Vaccine 2021-11-08 Completed Kateryna fair Moderna (Spikevax), 00:00:00 - Ext ernal Mrna-lnp, Tito Protein, Pf Covid-19 Vaccine 2021-11-08 Completed Kateryna fair Moderna (Spikevax), 00:00:00 - Ext ernal Mrna-lnp, Tito Protein, Pf Covid-19 Vaccine 2021-11-08 Completed Kateryna manjula Moderna (Spikevax), 00:00:00 - Ext ernal Mrna-lnp, Tito Protein, Pf Covid-19 Vaccine 2021-11-08 Completed Kateryna manjula Moderna (Spikevax), 00:00:00 - Ext ernal Mrna-lnp, Tito Protein, Pf Covid-19 Vaccine 2021-11-08 Completed Kateryna manjula Moderna (Spikevax), 00:00:00 - Ext ernal Mrna-lnp, Tito Protein, Pf Covid-19 Vaccine 2021-11-08 Completed Kateryna manjula Moderna (Spikevax), 00:00:00 - Ext ernal Mrna-lnp, Tito Protein, Pf Covid-19 Vaccine 2021-11-08 Completed Kateryna manjula Moderna (Spikevax), 00:00:00 - Ext ernal Mrna-lnp, Tito Protein, Pf Covid-19 Vaccine 2021-10-19 Completed Kateryna fair Moderna (Spikevax), 00:00:00 - Ext ernal Mrna-lnp, iTto Protein, Pf Covid-19 Vaccine 2021-10-19 Completed Kateryna manjula Moderna (Spikevax), 00:00:00 - Ext ernal Mrna-lnp, Tito Protein, Pf Covid-19 Vaccine 2021-10-19 Completed [facility] manjula Moderna (Spikevax), 00:00:00 - Ext ernal Mrna-lnp, [employer]ito Protein, Pf Covid-19 Vaccine 2021-10-19 Completed Kateryna manjula Moderna (Spikevax), 00:00:00 - Ext ernal Mrna-lnp, Tito Protein, Pf Covid-19 Vaccine 2021-10-19 Completed Kateryna manjula Moderna (Spikevax), 00:00:00 - Ext ernal Mrna-lnp, [employer]ito Protein, Pf Covid-19 Vaccine 2021-10-19 Completed Kateryna interianold Moderna (Spikevax), 00:00:00 - Ext ernal Mrna-lnp, Tito Protein, Pf Covid-19 Vaccine 2021-10-19 Completed Kateryna fair Moderna (Spikevax), 00:00:00 - Ext ernal Mrna-lnp, [employer], Pf Influenza Virus 2021-07-20 Completed Kateryna Se ybold Vaccine, Unspecified 00:00:00 - Ex ternal Formulation Influenza Virus 2021-07-20 Completed Kateryna Se ybold Vaccine, Unspecified 00:00:00 - Ex ternal Formulation Influenza Virus 2021-07-20 Completed Kateryna Se ybold Vaccine, Unspecified 00:00:00 - Ex ternal Formulation Influenza Virus 2021-07-20 Completed Kateryna Se ybold Vaccine, Unspecified 00:00:00 - Ex ternal Formulation Influenza Virus 2021-07-20 Completed Kateryna ybold Vaccine, Unspecified 00:00:00 - Ex ternal Formulation Influenza Virus 2021-07-20 Completed Kateryna Se ybold Vaccine, Unspecified 00:00:00 - Ex ternal Formulation Influenza Virus 2021-07-20 Completed Kateryna ybold Vaccine, Unspecified 00:00:00 - Ex ternal Formulation Moderna COVID-19 Moderna COVID-19 2021-03-09 Completed [facility] Vaccine Vaccine 11:49:00 [facility] Covid-19 Vaccine 2021-03-09 Completed Kateryna fair Moderna (Spikevax), 00:00:00 - Ext ernal Mrna-lnp, Tito Protein, Pf Covid-19 Vaccine 2021-03-09 Completed Kateryna fair Moderna (Spikevax), 00:00:00 - Ext ernal Mrna-lnp, Tito Protein, Pf Covid-19 Vaccine 2021-03-09 Completed Kateryna fair Moderna (Spikevax), 00:00:00 - Ext ernal Mrna-lnp, Tito Protein, Pf Covid-19 Vaccine 2021-03-09 Completed Kateryna fair Moderna (Spikevax), 00:00:00 - Ext ernal Mrna-lnp, Tito Protein, Pf Covid-19 Vaccine 2021-03-09 Completed Kateryna fair Moderna (Spikevax), 00:00:00 - Ext ernal Mrna-lnp, Tito Protein, Pf Covid-19 Vaccine 2021-03-09 Completed Kateryna fair (Moderna), Mrna-lnp, 00:00:00 Tito Protein, Pf, 100 Mcg/0.5ml,IM Covid-19 Vaccine 2021-03-09 Completed Kateryna fair Moderna (Spikevax), 00:00:00 - Ext ernal Mrna-lnp, Tito Protein, Pf Covid-19 Vaccine 2021-03-09 Completed Kateryna fair Moderna (Spikevax), 00:00:00 - Ext ernal Mrna-lnp, Tito Protein, Pf Covid-19 Vaccine 2021-03-09 Completed Kateryna fair Moderna (Spikevax), 00:00:00 - Ext ernal Mrna-lnp, Tito Protein, Pf Covid-19 Vaccine 2021-03-09 Completed Kateryna fair Moderna (Spikevax), 00:00:00 - Ext ernal Mrna-lnp, Tito Protein, Pf Covid-19 Vaccine 2021-03-07 Completed Kateryna fair Moderna (Spikevax), 00:00:00 - Ext ernal Mrna-lnp, Tito Protein, Pf Covid-19 Vaccine 2021-03-07 Completed Kateryna fair Moderna (Spikevax), 00:00:00 - Ext ernal Mrna-lnp, Tito Protein, Pf Covid-19 Vaccine 2021-03-07 Completed Kateryna fair Moderna (Spikevax), 00:00:00 - Ext ernal Mrna-lnp, Tito Protein, Pf Covid-19 Vaccine 2021-03-07 Completed Kateryna fair Moderna (Spikevax), 00:00:00 - Ext ernal Mrna-lnp, Tito Protein, Pf Covid-19 Vaccine 2021-03-07 Completed Kateryna fair Moderna (Spikevax), 00:00:00 - Ext ernal Mrna-lnp, Tito Protein, Pf Covid-19 Vaccine 2021-03-07 Completed Kateryna fair Moderna (Spikevax), 00:00:00 - Ext ernal Mrna-lnp, Tito Protein, Pf Covid-19 Vaccine 2021-03-07 Completed Kateryna fair Moderna (Spikevax), 00:00:00 - Ext ernal Mrna-lnp, Tito Protein, Pf Covid-19 Vaccine 2021-03-07 Completed Kateryna fair Moderna (Spikevax), 00:00:00 - Ext ernal Mrna-lnp, Tito Protein, Pf Covid-19 Vaccine 2021-03-07 Completed Kateryna fair Moderna (Spikevax), 00:00:00 - Ext ernal Mrna-lnp, Tito Protein, Pf Moderna COVID-19 Moderna COVID-19 2021-02-07 Completed [facility] - Vaccine Vaccine 11:48:00 [facility] Covid-19 Vaccine 2021-02-07 Completed Kateryna fair Moderna (Spikevax), 00:00:00 - Ext ernal Mrna-lnp, Tito Protein, Pf Covid-19 Vaccine 2021-02-07 Completed Kateryna fair Moderna (Spikevax), 00:00:00 - Ext ernal Mrna-lnp, Tito Protein, Pf Covid-19 Vaccine 2021-02-07 Completed Kateryna fair Moderna (Spikevax), 00:00:00 - Ext ernal Mrna-lnp, Tito Protein, Pf Covid-19 Vaccine 2021-02-07 Completed Kateryna fair Moderna (Spikevax), 00:00:00 - Ext ernal Mrna-lnp, Tito Protein, Pf Covid-19 Vaccine 2021-02-07 Completed Kateryna fair Moderna (Spikevax), 00:00:00 - Ext ernal Mrna-lnp, Tito Protein, Pf Covid-19 Vaccine 2021-02-07 Completed Kateryna fair Moderna (Spikevax), 00:00:00 - Ext ernal Mrna-lnp, Tito Protein, Pf Covid-19 Vaccine 2021-02-07 Completed Kateryna fair Moderna (Spikevax), 00:00:00 - Ext ernal Mrna-lnp, Tito Protein, Pf Covid-19 Vaccine 2021-02-07 Completed Kateryna fair Moderna (Spikevax), 00:00:00 - Ext ernal Mrna-lnp, Tito Protein, Pf Covid-19 Vaccine 2021-02-07 Completed Kateryna fair Moderna (Spikevax), 00:00:00 - Ext ernal Mrna-lnp, Tito Protein, Pf Covid-19 Vaccine 2021-02-07 Completed Kateryna fair Moderna (Spikevax), 00:00:00 - Ext ernal Mrna-lnp, Tito Protein, Pf Covid-19 Vaccine 2021-02-07 Completed Kateryna fair (Moderna), Mrna-lnp, 00:00:00 Tito Protein, Pf, 100 Mcg/0.5ml,IM Covid-19 Vaccine 2021-02-07 Completed Kateryna fair Moderna (Spikevax), 00:00:00 - Ext ernal Mrna-lnp, Tito Protein, Pf Covid-19 Vaccine 2021-02-07 Completed Kateryna fair Moderna (Spikevax), 00:00:00 - Ext ernal Mrna-lnp, Tito Protein, Pf Covid-19 Vaccine 2021-02-07 Completed Kateryna fair (Moderna), Mrna-lnp, 00:00:00 Tito Protein, Pf, 100 Mcg/0.5ml,IM Covid-19 Vaccine 2021-02-07 Completed Kateryna fair Moderna (Spikevax), 00:00:00 - Ext ernal Mrna-lnp, Tito Protein, Pf Covid-19 Vaccine 2021-02-07 Completed Kateryna fair Moderna (Spikevax), 00:00:00 - Ext ernal Mrna-lnp, Tito Protein, Pf Covid-19 Vaccine 2021-02-07 Completed Kateryna fair Moderna (Spikevax), 00:00:00 - Ext ernal Mrna-lnp, Tito Protein, Pf Covid-19 Vaccine 2021-02-07 Completed Kateryna fair Moderna (Spikevax), 00:00:00 - Ext ernal Mrna-lnp, Tito Protein, Pf Covid-19 Vaccine 2021-02-07 Completed Kateryna S eybold Moderna (Spikevax), 00:00:00 - Ext ernal Mrna-lnp, Tito Protein, Pf Covid-19 Vaccine 2021-02-07 Completed Kateryna Birch eybold Moderna (Spikevax), 00:00:00 - Ext ernal Mrna-lnp, Tito Protein, Pf Afluria Afluria 2021-01-08 Completed [facility] - 11:48:00 [facility] Influenza, Seasonal, 2021-01-08 Completed Keisha ey Seybold Injectable, 00:00:00 - External Preservative Free Influenza, Seasonal, 2021-01-08 Completed Keisha ey Seybold Injectable, 00:00:00 - External Preservative Free Influenza, Seasonal, 2021-01-08 Completed Keisha ey Seybold Injectable, 00:00:00 - External Preservative Free Influenza, Seasonal, 2021-01-08 Completed Keisha ey Seybold Injectable, 00:00:00 - External Preservative Free Influenza, Seasonal, 2021-01-08 Completed Keisha ey Seybold Injectable, 00:00:00 - External Preservative Free Influenza, Seasonal, 2021-01-08 Completed Keisha ey Seybold Injectable, 00:00:00 - External Preservative Free Influenza, Seasonal, 2021-01-08 Completed Keisha ey Seybold Injectable, 00:00:00 - External Preservative Free Influenza, Seasonal, 2021-01-08 Completed Keisha ey Seybold Injectable, 00:00:00 - External Preservative Free Influenza, Seasonal, 2021-01-08 Completed Keisha ey Seybold Injectable, 00:00:00 - External Preservative Free Influenza, Seasonal, 2021-01-08 Completed Keisha ey Seybold Injectable, 00:00:00 - External Preservative Free Influenza, Seasonal, 2021-01-08 Completed Keisha ey Seybold Injectable, 00:00:00 - External Preservative Free Influenza, Seasonal, 2021-01-08 Completed Keisha ey Seybold Injectable, 00:00:00 - External Preservative Free Influenza, Seasonal, 2021-01-08 Completed Keisha ey Seybold Injectable, 00:00:00 Preservative Free Influenza, Seasonal, 2021-01-08 Completed Keisha ey Seybold Injectable, 00:00:00 Preservative Free Influenza, Seasonal, 2021-01-08 Completed Keisha ey Seybold Injectable, 00:00:00 - External Preservative Free Influenza, Seasonal, 2021-01-08 Completed Keisha ey Seybold Injectable, 00:00:00 - External Preservative Free Influenza, Seasonal, 2021-01-08 Completed Keisha ey Seybold Injectable, 00:00:00 - External Preservative Free Influenza, Seasonal, 2021-01-08 Completed Keisha ey Seybold Injectable, 00:00:00 - External Preservative Free Influenza, Seasonal, 2021-01-08 Completed Keisha ey Seybold Injectable, 00:00:00 - External Preservative Free Influenza, Seasonal, 2021-01-08 Completed Keisha ey Seybold Injectable, 00:00:00 - External Preservative Free Vital Signs Vital Name Observation Time Observation Value Comments Source Body height 2023-03-07 16:34:00 162.6 cm Kateryna Birch eybold - External Body weight 2023-03-07 16:34:00 101.606 kg Kateryna Birch eybold - External BMI 2023-03-07 16:34:00 38.45 kg/m2 Kateryna Birch eybold - External Systolic blood 2023-02-25 18:28:00 113 mm[Hg] Kateryna Seybold - pressure External Diastolic blood 2023-02-25 18:28:00 77 mm[Hg] Allison y Seybold - pressure External Heart rate 2023-02-25 18:28:00 64 /min Kateryna Birch eybold - External Body temperature 2023-02-25 18:28:00 36.56 Leslie Keisha ey Seybold - External Respiratory rate 2023-02-25 18:28:00 15 /min Keisha cai Seybold - External Body height 2023-02-25 18:28:00 162.6 cm Kateryna Birch eybold - External Body weight 2023-02-25 18:28:00 103.874 kg Kateryna Birch eybold - External BMI 2023-02-25 18:28:00 39.31 kg/m2 Kateryna Birch eybold - External Oxygen saturation in 2023-02-25 18:28:00 98 /min Kateryna Seybold - Arterial blood by External Pulse oximetry Body height 2023-01-15 17:25:00 162.6 cm Kateryna Birch eybold - External Body weight 2023-01-15 17:25:00 95.255 kg Kateryna S eybold - External BMI 2023-01-15 17:25:00 36.05 kg/m2 Kateryna S eybold - External Body height 2022-12-19 15:30:00 162.6 cm Kateryna S eybold - External Body weight 2022-12-19 15:30:00 95.255 kg Kateryna S eybold - External BMI 2022-12-19 15:30:00 36.05 kg/m2 Kateryna Birch eybold - External Systolic blood 2022-11-27 19:13:00 122 mm[Hg] Kateryna Seybold - pressure External Diastolic blood 2022-11-27 19:13:00 83 mm[Hg] Kelse y Seybold - pressure External Heart rate 2022-11-27 19:13:00 64 /min Kateryna Birch eybold - External Body temperature 2022-11-27 19:13:00 36.56 Leslie Keisha ey Seybold - External Respiratory rate 2022-11-27 19:13:00 14 /min Keisha ey Seybold - External Body height 2022-11-27 19:13:00 162.6 cm Kateryna Birch eybold - External Body weight 2022-11-27 19:13:00 99.791 kg Kateryna Birch eybold - External BMI 2022-11-27 19:13:00 37.76 kg/m2 Kateryna Birch eybold - External Oxygen saturation in 2022-11-27 19:13:00 99 /min Kateryna Jenkinsybold - Arterial blood by External Pulse oximetry Systolic blood 2022-09-25 14:59:00 110 mm[Hg] Kateryna Seybold - pressure External Diastolic blood 2022-09-25 14:59:00 74 mm[Hg] Kelse y Seybold - pressure External Heart rate 2022-09-25 14:59:00 67 /min Kateryna S eybold - External Body temperature 2022-09-25 14:59:00 37.06 Leslie Keisha ey Seybold - External Respiratory rate 2022-09-25 14:59:00 18 /min Keisha ey Seybold - External Body height 2022-09-25 14:59:00 162.6 cm Kateryna Birch eybold - External Body weight 2022-09-25 14:59:00 98.884 kg Kateryna S eybold - External BMI 2022-09-25 14:59:00 37.42 kg/m2 Kateryna S eybold - External Systolic blood 2022-09-09 14:27:00 102 mm[Hg] Kateryna Seybold - pressure External Diastolic blood 2022-09-09 14:27:00 59 mm[Hg] Kelse y Seybold - pressure External Heart rate 2022-09-09 14:27:00 61 /min Kateryna S eybold - External Body temperature 2022-09-09 14:27:00 36.44 Leslie Keisha ey Seybold - External Respiratory rate 2022-09-09 14:27:00 14 /min Keisha ey Seybold - External Body height 2022-09-09 14:27:00 162.6 cm Kateryna S eybold - External Body weight 2022-09-09 14:27:00 100.245 kg Kateryna S eybold - External BMI 2022-09-09 14:27:00 37.93 kg/m2 Kateryna S eybold - External Oxygen saturation in 2022-09-09 14:27:00 99 /min Kateryna Jenkinsybold - Arterial blood by External Pulse oximetry Systolic blood 2021-11-26 16:51:00 114 mm[Hg] Kateryna Seybold pressure Diastolic blood 2021-11-26 16:51:00 76 mm[Hg] Kelse y Seybold pressure Heart rate 2021-11-26 16:51:00 80 /min Kateryna S eybold Body temperature 2021-11-26 16:51:00 35.78 Leslie Keisha ey Seybold Respiratory rate 2021-11-26 16:51:00 16 /min Keisha ey Seybold Body height 2021-11-26 16:51:00 162.6 cm Kateryna S eybold Body weight 2021-11-26 16:51:00 115.667 kg Kateryna S eybold BMI 2021-11-26 16:51:00 43.77 kg/m2 Kateryna fair Procedures Procedure Date / Time Performed Performing Clinician Sourc e PELVIS 2022-12-19 16:47:51 Gus Neri ld - External Encounters Start End Encounter Admission Attending Care Care Encounter Source Date/Time Date/Time Type Type Clinicians Facility Department ID 2023-03-24 Outpatient Pranva, STLMLC STLMLC [id number] Common 15:49:01 Darius [id number] [facility] 2023-03-11 Outpatient Pranav, STLMLC STLMLC [id number] Common 09:16:01 Darius [id number] [facility] 2022-08-15 Outpatient Pranav, STLMLC STLMLC [id number] Common 09:14:03 Darius [id number] [facility] 2022-06-18 Outpatient Pranav, STLMLC STLMLC [id number] Common 08:34:02 Darius [id number] [facility] 2022-03-12 Outpatient Wing, STLMLC STLMLC [id number] Common 16:48:01 Avnee [facility] 2022-02-27 Outpatient Wing, STLMLC STLMLC [id number] Common 09:15:02 Avnee [facility] 2022-02-26 Outpatient Wing, STLMLC STLMLC [id number] Common 13:41:03 Avnee [facility] 2022-02-12 Outpatient Wing, STLMLC STLMLC [id number] Common 14:26:01 Avnee [facility] 2022-02-08 Outpatient Wing, STLMLC STLMLC [id number] Common 14:54:01 Avnee [facility] 2022-01-30 Outpatient Wing, STLMLC STLMLC [id number] Common 07:54:01 Avnee [facility] 2022-01-28 Outpatient Wing, STLMLC STLMLC [id number] Common 10:38:01 Avnee [facility] 2022-01-21 Outpatient [facility], [facility] [id number] Common 15:25:01 Avnee [facility] 2022-01-15 Outpatient Wing, [facility] [id number] Common 09:32:04 Avnee [facility] 2022-01-14 Outpatient Wing, [facility] [id number] Common 10:53:02 Avnee [facility] 2022-01-11 Outpatient Wing, [facility] [id number] Common 15:37:01 Avnee [facility] 2021-12-05 Outpatient Wing, [facility] [id number] Common 14:28:58 Avnee [facility] 2021-12-05 Outpatient Wing, [facility] [id number] Common 14:24:55 Avnee [facility] 2021-12-05 Outpatient Wing, [facility] [id number] Common 14:21:24 Avnee [id number] [facility] 2023-06-27 2023-06-27 Outpatient KATERYNA FOSTER [id number] Kateryna 13:45:00 13:45:00 GEORGINA Seybol d 2023-04-30 2023-04-30 Outpatient LAB90 KATERYNA MITCHELL [id number] Kateryna 15:35:00 15:35:00 Seybol d 2023-04-30 2023-04-30 Outpatient RAMY SIDDIQUI [id number] Kateryna 14:30:00 14:30:00 Seybol d 2023-04-29 2023-04-29 Outpatient KATERYNA FOSTER [id number] Kateryna 00:00:00 00:00:00 GEORGINA Seybol d 2023-04-21 2023-04-21 Outpatient GUS NERI [id number] Kateryna 00:00:00 00:00:00 Seybol d 2023-04-16 2023-04-16 Outpatient NERIGUS KATERYNA MITCHELL [id number] Kateryna 10:45:00 10:45:00 Seybol d 2023-04-09 2023-04-09 Outpatient NERIGUS KATERYNA MITCHELL [id number] Kateryna 00:00:00 00:00:00 Seybol d 2023-04-03 2023-04-03 Outpatient PREZAKATERYNA Birch [id number] [place]ateryna 00:00:00 00:00:00 GEORGINA Seybol d 2023-04-01 2023-04-01 Outpatient KATERYNA MITCHELL [id number] Kateryna 00:00:00 00:00:00 Seybol d 2023-04-01 2023-04-01 Outpatient KATERYNA GALLO [id number] Kateryna 00:00:00 00:00:00 DARIUS Seybol d 2023-03-28 2023-03-28 Outpatient KATERYNA MITCHELL [id number] Kateryna 00:00:00 00:00:00 Seybol d 2023-03-28 2023-03-28 Outpatient PREZAKATERYNA Birch [id number] Kateryna 00:00:00 00:00:00 GEORGINA Seybol d 2023-03-26 2023-03-26 Outpatient ARTURRAMY KATERYNA MITCHELL [id number] Kateryna 11:30:00 11:30:00 Seybol d 2023-03-26 2023-03-26 Outpatient LAB90 KATERYNA MITCHELL [id number] Kateryna 11:20:00 11:20:00 Seybol d 2023-03-26 2023-03-26 Outpatient PREZASKATERYNA [id number] Kateryna 00:00:00 00:00:00 GEORGINA Seybol d 2023-03-24 2023-03-24 Outpatient PREZASKATERYNA [id number] Kateryna 00:00:00 00:00:00 GEORGINA Seybol d 2023-03-12 2023-03-12 Outpatient PREKATERYNA LAUGHLIN [id number] Kateryna 00:00:00 00:00:00 GEORGINA Seybol d 2023-03-07 2023-03-07 Outpatient GUS NERI KATERYNA MITCHELL [id number] Kateryna 13:15:00 13:15:00 Seybol d 2023-03-07 2023-03-07 Outpatient RAVENKATERYNA [id number] Kateryna 00:00:00 00:00:00 NEO Seybol d 2023-03-03 2023-03-03 Outpatient PREKATERYNA LAUGHLIN [id number] Kateryna 00:00:00 00:00:00 GEORGINA Seybol d 2023-03-03 2023-03-03 Outpatient KATERYNA FOSTER [id number] Kateryna 00:00:00 00:00:00 GEORGINA Seybol d 2023-03-03 2023-03-03 Outpatient KATERYNA FOSTER [id number] Kateryna 00:00:00 00:00:00 GEORGINA Seybol d 2023-02-26 2023-02-26 Outpatient KATERYNA FOSTER [id number] Kateryna 00:00:00 00:00:00 GEORGINA Seybol d 2023-02-25 2023-02-25 Outpatient LAB90 KATERYNA MITCHELL [id number] Kateryna 14:00:00 14:00:00 Seybol d 2023-02-25 2023-02-25 Outpatient KATERYNA FOSTER [id number] Kateryna 13:30:00 13:30:00 GEORGINA Seybol d 2023-02-25 2023-02-25 Outpatient KATERYNA MITCHELL [id number] Kateryna 00:00:00 00:00:00 Seybol d 2023-02-25 2023-02-25 Outpatient KATERYNA GALLO [id number] Kateryna 00:00:00 00:00:00 DARIUS Seybol d 2023-01-24 2023-01-24 Outpatient KATERYNA CHOI [id number] Kateryna 00:00:00 00:00:00 DARREL Seybol d 2023-01-21 2023-01-21 Outpatient REGGIESEYONLilly MITCHELL [id number] Kateryna 00:00:00 00:00:00 MD QUE Seybol d 2023-01-20 2023-01-20 Outpatient KATERYNA MITCHELL [id number] Kateryna 07:30:00 07:30:00 Seybol d 2023-01-15 2023-01-15 Outpatient GUS NERI KATERYNA MITCHELL [id number] Kateryna 15:30:00 15:30:00 Seybol d 2023-01-13 2023-01-13 Outpatient KATERYNA MITCHELL [id number] Kateryna 11:15:00 11:15:00 Seybol d 2023-01-13 2023-01-13 Outpatient KATERYNA MITCHELL [id number] Kateryna 00:00:00 00:00:00 Seybol d 2023-01-13 2023-01-13 Outpatient KATERYNA MITCHELL [id number] Kateryna 00:00:00 00:00:00 Seybol d 2023-01-10 2023-01-10 Outpatient KATERYNA GALLO [id number] Kateryna 00:00:00 00:00:00 DARIUS Seybol d 2023-01-09 2023-01-09 Outpatient VELIA VALENZUELA [id number] Kateryna 11:30:00 11:30:00 Seybol d 2023-01-09 2023-01-09 Outpatient YESSY MITCHELL [id number] Kateryna 00:00:00 00:00:00 MD QUE Seybol d 2023-01-03 2023-01-03 Outpatient KATERYNA FOSTER [id number] Kateryna 00:00:00 00:00:00 GEORGINA Seybol d 2023-01-02 2023-01-02 Outpatient LAB90 KATERYNA MITCHELL [id number] Kateryna 08:45:00 08:45:00 Seybol d 2023-01-02 2023-01-02 Outpatient KATERYNA FOSTER [id number] Kateryna 00:00:00 00:00:00 GEORGINA Seybol d 2022-12-20 2022-12-20 Outpatient KATERYNA MITCHELL [id number] Kateryna 00:00:00 00:00:00 Seybol d 2022-12-19 2022-12-19 Outpatient PATBEV KATERYNA MITCHELL [id number] Kateryna 14:00:00 14:00:00 DARREL Seybol d 2022-12-19 2022-12-19 Outpatient KATERYNA MITCHELL [id number] Kateryna 10:40:00 10:40:00 Seybol d 2022-12-19 2022-12-19 Outpatient GUS NERI KATERYNA MITCHELL [id number] Kateryna 08:00:00 08:00:00 Seybol d 2022-12-19 2022-12-19 Outpatient KATERYNA MITCHELL [id number] Kateryna 00:00:00 00:00:00 Seybol d 2022-12-12 2022-12-12 Outpatient PATBEVKATERYNA [id number] [place]ateryna 09:30:00 09:30:00 DARREL Seybol d 2022-12-09 2022-12-09 Outpatient PREKATERYNA LAUGHLIN [id number] Kateryna 00:00:00 00:00:00 GEORGINA Seybol d 2022-12-05 2022-12-05 Outpatient PREZAKATERYNA Birch [id number] Kateryna 00:00:00 00:00:00 GEORGINA Seybol d 2022-11-27 2022-11-27 Outpatient PREKATERYNA LAUGHLIN [id number] Kateryna 13:30:00 13:30:00 GEORGINA Seybol d 2022-11-26 2022-11-26 Outpatient PREKATERYNA LAUGHLIN [id number] Kateryna 00:00:00 00:00:00 GEORGINA Seybol d 2022-11-19 2022-11-19 Outpatient LAB90 KATERYNA MITCHELL [id number] Kateryna 10:40:00 10:40:00 Seybol d 2022-11-18 2022-11-18 Outpatient KATERYNA GALLO [id number] [place]yna 00:00:00 00:00:00 DARIUS Seybol d 2022-11-14 2022-11-14 Outpatient PREZAKATERYNA Birch [id number] Kateryna 11:30:00 11:30:00 GEORGINA Seybol d 2022-11-14 2022-11-14 Outpatient CRISTIAN KATERYNA MITCHELL [id number] [place]yna 00:00:00 00:00:00 GEORGINA Seybol d 2022-11-13 2022-11-13 Outpatient PRETRUMAN KATERYNA MITCHELL [id number] Kateryna 00:00:00 00:00:00 GEORGINA Seybol d 2022-11-06 2022-11-06 Outpatient OU, KATERYNA MITCHELL [id number] [place]ateryna 09:15:00 09:15:00 CHRISTIANO Seyb old 2022-10-29 2022-10-29 Outpatient KATERYNA MITCHELL [id number] [place] 08:30:00 08:30:00 Seybol d 2022-10-25 2022-10-25 Outpatient KATERYNA GALLO [id number] [place] 00:00:00 00:00:00 DARIUS Seybol d 2022-09-25 2022-09-25 Outpatient KATERYNA MITCHELL [id number] [place]ateryna 10:05:00 10:05:00 Seybol d 2022-09-25 2022-09-25 Outpatient KAETRYNA MITCHELL [id number] [place] 10:00:00 10:00:00 Seybol d 2022-09-25 2022-09-25 Outpatient KATERYNA MITCHELL [id number] [place]yna 09:55:00 09:55:00 Seybol d 2022-09-25 2022-09-25 Outpatient OU, KATERYNA MITCHELL [id number] [place]yna 09:00:00 09:00:00 CHRISTIANO Seyb old 2022-09-10 2022-09-10 Outpatient OU, KATERYNA MITCHELL [id number] [place]yna 10:00:00 10:00:00 CHRISTIANO Seyb old 2022-09-09 2022-09-09 Outpatient LAB90 KATERYNA MITCHELL [id number] [place] 10:15:00 10:15:00 Seybol d 2022-09-09 2022-09-09 Outpatient KATERYNA GALLO [id number] [place] 09:30:00 09:30:00 DARIUS Seybol d 2022-09-06 2022-09-06 Outpatient KATERYNA GALLO [id number] [place] 16:00:00 16:00:00 DARIUS Seybol d 2022-09-02 2022-09-02 Outpatient KATERYNA ROCK [id number] [place] 13:45:00 13:45:00 LATHA Seybol d 2022-08-15 2022-08-15 Outpatient KATERYNA GALLO [id number] [place] 00:00:00 00:00:00 DARIUS Seybol d 2022-07-10 2022-07-10 Outpatient KATERYNA GALLO [id number] [place] 00:00:00 00:00:00 DARIUS Seybol d 2022-07-09 2022-07-09 ambulatory STLMLC STLMLC [id number] Common 00:00:00 00:00:00 [facility] 2022-07-04 2022-07-04 ambulatory STLMLC STLMLC [id number] Common 00:00:00 00:00:00 [facility] 2022-07-03 2022-07-03 Outpatient KATERYNA GALLO [id number] [place] 00:00:00 00:00:00 DARIUS Seybol d 2022-07-02 2022-07-02 ambulatory STLMLC STLMLC [id number] Common 00:00:00 00:00:00 [facility] 2022-06-26 2022-06-26 Outpatient KATERYNA GALLO [id number] Kateryna 00:00:00 00:00:00 DARIUS Seybol d 2022-06-26 2022-06-26 ambulatory STLMLC STLMLC [id number] Common 00:00:00 00:00:00 [facility] 2022-06-12 2022-06-12 Outpatient KATERYNA GALLO [id number] Kateryna 00:00:00 00:00:00 DARIUS Seybol d 2022-06-07 2022-06-07 Outpatient LAB90 KATERYNA MITCHELL [id number] Kateryna 16:10:00 16:10:00 Seybol d 2022-06-07 2022-06-07 Office Ramy Gallo [id number] Kateryna 15:30:00 15:45:00 Visit Darius Sparks [id number] Se oliverio Reedogyi [id number] 2022-05-15 2022-05-15 Outpatient KATERYNA GALLO [id number] Kateryna 00:00:00 00:00:00 DARIUS zepeda 2022-05-10 2022-05-10 Office Ramy Gallo [id number] Kateryna 15:30:00 16:00:00 Visit Darius Sparks [id number] Se oliverio Reedogyi [id number] 2022-05-08 2022-05-08 ambulatory [facility]LMLC STL[facility]C [id number] Common 00:00:00 00:00:00 [facility] 2022-04-16 2022-04-16 ambulatory [facility]LMLC STLMLC [id number] Common 00:00:00 00:00:00 [facility] 2022-04-15 2022-04-15 ambulatory [facility]LMLC STLMLC [id number] Common 00:00:00 00:00:00 [facility] 2022-03-28 2022-03-28 ambulatory [facility]LMLC STLMLC [id number] Common 00:00:00 00:00:00 [facility] 2022-03-21 2022-03-21 ambulatory [facility]LMLC STLMLC [id number] Common 00:00:00 00:00:00 [facility] 2022-03-13 2022-03-13 ambulatory [facility]LMLC STLMLC [id number] Common 00:00:00 00:00:00 [facility] 2022-03-12 2022-03-12 ambulatory [facility]LMLC STLMLC [id number] Common 00:00:00 00:00:00 [facility] 2022-02-26 2022-02-26 ambulatory [facility]LMLC STLMLC [id number] Common 00:00:00 00:00:00 [facility] 2022-02-26 2022-02-26 ambulatory [facility]LMLC STLMLC [id number] Common 00:00:00 00:00:00 [facility] 2022-02-12 2022-02-12 ambulatory [facility]LMLC STLMLC [id number] Common 00:00:00 00:00:00 [facility] 2022-02-05 2022-02-05 ambulatory [facility]LMLC STLMLC [id number] Common 00:00:00 00:00:00 [facility] 2022-01-30 2022-01-30 ambulatory [facility]LMLC STLMLC [id number] Common 00:00:00 00:00:00 [facility] 2022-01-30 2022-01-30 ambulatory [facility]LMLC STLMLC [id number] Common 00:00:00 00:00:00 [facility] 2022-01-30 2022-01-30 ambulatory [facility]LMLC STLMLC [id number] Common 00:00:00 00:00:00 [facility] 2022-01-21 2022-01-21 ambulatory [facility]LMLC STLMLC [id number] Common 00:00:00 00:00:00 [facility] 2022-01-21 2022-01-21 ambulatory STLMLC STLMLC [id number] Common 00:00:00 00:00:00 [facility] 2022-01-21 2022-01-21 ambulatory STLMLC STLMLC [id number] Common 00:00:00 00:00:00 [facility] 2022-01-18 2022-01-18 ambulatory STLMLC STLMLC [id number] Common 00:00:00 00:00:00 [facility] 2022-01-15 2022-01-15 ambulatory STLMLC STLMLC [id number] Common 00:00:00 00:00:00 [facility] 2022-01-08 2022-01-08 Outpatient KATERYNA GALLO [id number] Kateryna 00:00:00 00:00:00 DARIUS zepeda 2021-12-27 2021-12-27 Outpatient KATERYNA GALLO [id number] Kateryna 00:00:00 00:00:00 DARIUS Seybol d 2021-12-25 2021-12-25 Outpatient KATERYNA GALLO [id number] Kateryna 00:00:00 00:00:00 DARIUS Seybol d 2021-12-09 2021-12-09 Outpatient KATERYNA MITCHELL [id number] Kateryna 00:00:00 00:00:00 Seybol d 2021-11-29 2021-11-29 Outpatient KATERYNA GALLO [id number] Kateryna 00:00:00 00:00:00 DARIUS Seybol d 2021-11-27 2021-11-27 Outpatient LAB90 KATERYNA MITCHELL [id number] Kateryna 08:15:00 08:15:00 Seybol d 2021-11-27 2021-11-27 Outpatient KATERYNA AGLLO [id number] Kateryna 00:00:00 00:00:00 DARIUS Seybol d 2021-11-27 2021-11-27 Outpatient KATERYNA MITCHELL [id number] Kateryna 00:00:00 00:00:00 Seybol d 2021-11-26 2021-11-26 Office Pranav Ramy [id number] Kateryna 10:45:00 11:15:00 Visit Darius Sparks 350.1.13.13 Se oliverio Sebastián 1.2.7.2.686 [id number] 2021-11-23 2021-11-23 Outpatient KATERYNA FRIEDMAN [id number] Kateryna 00:00:00 00:00:00 MAN-STEPHEN Seybo ld 2021-11-05 2021-11-05 ambulatory STLMLC STLMLC [id number] Common 00:00:00 00:00:00 [facility] 2021-11-01 2021-11-01 ambulatory STLMLC STLMLC [id number] Common 00:00:00 00:00:00 [facility] 2021-10-29 2021-10-29 ambulatory STLMLC STLMLC [id number] Common 00:00:00 00:00:00 [facility] 2021-10-24 2021-10-24 ambulatory STLMLC STLMLC [id number] Common 00:00:00 00:00:00 [facility] 2021-10-23 2021-10-23 (TEL) STLMLC STLMLC [id number] Co mmon 00:00:00 00:00:00 [facility] 2021-10-16 2021-10-16 ambulatory STLMLC STLMLC [id number] Common 00:00:00 00:00:00 [facility] 2021-04-17 2021-04-17 Emergency E ULLOA, MHSW MHSW 7501 MHSW 12:26:00 20:09:00 MICAH 2021-02-28 2021-02-28 Emergency Elkins, RUST [id number] [id number] 19:00:00 20:05:00 Raul Capps 350.1.13.10 [place] 4.2.7.2.686 [place] [id number] 2021-02-28 2021-02-28 Emergency X RUST ERT [id number] Univers 18:54:00 18:54:00 ity [facility] 2020-11-12 2020-11-12 Emergency X JUSTIN, RUST ERT [id number] Univers 10:27:00 13:27:00 JERROD ity [facility] 2020-11-12 2020-11-12 Emergency X JUSTIN, RUST ERT [id number] Univers 10:27:00 10:27:00 JERROD [facility] 2020-10-10 2020-10-10 Emergency E AUSTIN, MHBL MHBL 7500 MHBL 13:09:00 19:20:00 LATHA 2020-06-28 2020-06-28 Emergency Aliya, RUST [id number] [id number] 14:56:00 17:04:00 Rafia Capps 350.1.13.10 [place] 4.2.7.2.686 [place] [id number] 2020-06-28 2020-06-28 Emergency X ALIYA, RUST ERT [id number] Univers 14:56:00 14:56:00 RAFIA [facility] 2020-06-28 2020-06-28 Orders Doctor DEEPIKA 1.2.840.114 [id number] 00:00:00 00:00:00 Only Unassigned, DESTINY 350.1.13.10 [place] [facility] 4.2.7.2.686 [id number] 2020-03-20 2020-03-20 Emergency Aron RUST 1.2.840.114 [id number] 18:31:57 20:18:00 Errol Capps 350.1.13.10 [place] 4.2.7.2.686 [place] [id number] 2020-03-20 2020-03-20 Emergency X ARON RUST ERT [id number] Univers 18:31:57 18:31:57 ERROL [facility] Results Test Description Test Time Test Comments Results Result [facility] e Comments - XR FLUOROSCOPY 2019-01-14 Name: RACHAEL OQUENDO 0-60 MIN 10:27:00 DAVID Sharp : 1960 Age/S: 58 / M [id number] [place] Unit #: [id number] Loc: [place] [address] Phys: Kevin Rollins MD Acct: [id number] Dis Date: Status: [facility] PHONE #: [phone] Exam Date: 01/14/2019 09 FAX #: Reason: PORT A CATH PLACEMENT EXAMS: CPT: [id number] XR FLUOROSCOPY 0-60 MIN 25430 Fluoro Time: 8 SEC DAP (Gy m2): [...] MD PAGE 1 Signed Report Name: RACHAEL OQUENDO CLARENCEHernán [place]ila : 1960 Age/S: 58 / M [id number] [place] Unit #: [id number] Loc: [place] [address] Phys: Kevin Rollins MD Acct: [id number] Dis Date: Status: [facility] [place] PHONE #: [phone] Exam Date: 01/14/2019 0910 FAX #: Reason: PORT A CATH PLACEMENT EXAMS: CPT: [id number] XR FLUOROSCOPY 0-60 MIN 20987 Fluoro Time: 8 SEC DAP (Gy m2): Air Kerma (mGy): (Continued) Technologist: Sandy Lucero, RT(R)(CT); Mary Carbajal RT(R) Trnscb Date/Time: 01/14/2019 (1028) t.JH12 Orig Print D/T: S: 01/14/2019 (3773) PAGE 2 Signed Report GLUCOSE BEDSIDE TESTING 2019-01-14 10:17:00 Test Item Value Reference Range Interpretation Comme nts GLUCOSE BEDSIDE TESTING (test code = GLUBED) 140 mg/dL 70-110 H - XR CHEST 1 [id number] 10:04:00 Name: RACHAEL OQUENDO : 1960 Age/S: 58 / M [id number] [place] Unit #: [id number] Loc: [place] [address] Phys: Kevin Rollins MD Acct: [id number] Dis Date: Status: [facility] PHONE #: [phone] Exam Date: 01/14/2019 0955 FAX #: Reason: port placement EXAMS: CPT: [id number] XR CHEST 1 V 93430 Fluoro Time: DAP (Gy m2): Air Kerma (mGy): EXAM: - XR CHEST 1 V HISTORY: Port placement Location code:C3 COMPARISON: None available time of interpretation. FINDINGS: Single AP view of the chest is provided. Right IJ Port-A-Cath with tip projecting about the distal SVC level is present. Added opacity along the right paratracheal region is seen. Heart size and vascularity are within normal limits. The lungs are clear of focal consolidation. No effusion, pneumothorax, or acute osseous abnormality. IMPRESSION: 1. Right IJ Port-A-Cath tip projects about the distal SVC level without pneumothorax. 2. Added opacity in the right paratracheal region could represent adenopathy, enlarged thyroid gland, vascular [...] MD PAGE 1 Signed Report Name: RACHAEL OQUENDO [place] : 1960 Age/S: 58 / M [id number] [place] Unit #: [id number] Loc: [place] [address] Phys: Kevin Rollins MD Acct: [id number] Dis Date: Status: [facility] [place] PHONE #: [phone] Exam Date: 01/14/2019 0955 FAX #: Reason: port placement EXAMS: CPT: [id number] XR CHEST 1 V 19078 Fluoro Time: DAP (Gy m2): Air Kerma (mGy): (Continued) Technologist: Rachael Izquierdo, RT(R)(CT); Mary Carbajal RT(R) [facility] [place] Date/Time: 01/14/2019 (1004) [email or web address] Orig Print D/T: S: 01/14/2019 (1007) PAGE 2 Signed ReportGLUCOSE BEDSIDE [id number] 07:20:00 Test Item Value Reference Range Interpretation Comments GLUCOSE BEDSIDE TESTING (test code 137 mg/dL 70-110 H = GLUBED) [id number] 16:52:00 RUN DATE: 01/06/19 [facility] - LAB *LIVE* PAGE 1 RUN TIME: 1652 Specimen Inquiry RUN USER: INTERFACE PATIENT: RACHAEL OQUENDO LOC: [place] U #: [id number] AGE/SX: 58/M ROOM: [facility] RE12/31/18REG DR: Kevin Rollins MD : 64 BED: 1 DIS: 01/02/19 STATUS: DIS IN TLOC: SPEC #: [id number] RECD: 01/01/19 STATUS: MARCIA JESUS #: [id number] ONELIA: 12/31/18 [facility] DR: Kevin Rollins MD ENTERED: 01/01/19 SP TYPE: SURG OTHR DR: Shamar Abreu ORDERED: SURG PATH LVL 6 COPIES TO: Shamar Abreu [address] [place] [address] [address] [place], [place] [id number] [place] [address] [place] [address] HISTOLOGY: TISSUE ID BLK PCS CESAR LEV PROCEDURE DISPOSITION ____ ___ ___ ___ SIGMOID COLON A 1-15 1 PROCEDURES: SURG PATH LVL 6 (01/01/19) TISSUES: A. SIGMOID COLON - SIGMOID COLON AND ANASTOMATIC COLON RINGS CLINICAL HISTORY COLON RECTAL CANCER -C18.9 CPT CODES CPT CODE(S): 27856 , , , , , , FINAL DIAGNOSIS Colon, sigmoid, anastomotic donuts, partial colectomy: MODERATELY DIFFERENTIATED COLORECTAL ADENOCARCINOMA, 6 CM GREATEST DIMENSION 7 LYMPH NODES POSITIVE FOR METASTATIC CARCINOMA (7/10) MARGINS NE [place] CONTINUED ON NEXT PAGE RUN DATE: 01/06/19 [facility] - LAB *LIVE* PAGE 2 RUN TIME: 1652 Specimen Inquiry RUN USER: INTERFACE SPEC #: [id number] PATIENT: RACHAEL OQUENDO #[id number] (Continued)--- --------- GROSS DESCRIPTION Sigmoid colon and anastomotic colon [...] cm from the distal margin. In the proximal 1/3 of the tumor occupies whole circumference of the colon andin the distal 2/3 the tumor spares 0.9 [...] of proximal end A3 Entire circumference of dis rosi margin A4-A5 [employer] sections of the lesion A6 Tumor with normal mucosa of proximal margin A7 Tumor with normal mucosa of closest distal margin A8 Normal mucosa A9 Ore Bridge Operator sections of largest anastomotic ring A10 Ore Bridge Operator sections of second anastomotic ring A11 Ore Bridge Operator sections of mesentery A12-A14 Ore [employer] Operator sections of mesentery with possible matted lymph nodes A15-A20 Entire lymph nodes, one lymph node each A21 Two lymph nodes A22 Two lymph nodes, serially sectioned A23 Three lymph nodes Grossing performed at [facility], [address] [place] [address], [address], [place] [address]. Receiving Worker: Hany Haji M.D. MICROSCOPIC DESCRIPTION Sigmoid colonand anastomotic colon rings. Sections demonstrate colonic mucosa. A mass with infiltrating neoplastic glands identified. The glands penetrate through the muscularis to involve the serosa. Lymphovascular invasion is identified. Sections of mesentery demonstrate tumor involving soft tissue. Lymph nodes are identified. Metastatic carcinoma is present in 7 lymph nodes. A total of 10 lymph nodes are identified.The carcinoma CONTINUED ON NEXT PAGE RUN DATE: 01/06/19 [facility] - LAB *LIVE* PAGE 3 RUN TIME: 1651 Specimen Inquiry RUN USER: INTERFACE SPEC #: [facility]:[id number] PATIENT: RACHAEL OQUENDO #[id number] (C ontinued) MICROSCOPIC DESCRIPTION (Continued) demonstrates moderately differentiated colonic adenocarcinoma with prominent gland formation. Portions of the carcinoma demonstrate poorly formed glands and cell clusters. Carcinoma present in lymph nodes demonstrate a mixture of gland formation with irregular cellclusters. Focal mucinous pools are also identified in the lymph nodes. The margins are negative. Theanastomotic donuts are also negative for carcinoma. STAGING: [...] differentiated Tumor extension: Tumor invades through muscularis propria Margins: All margins uninvolved Proximal margin: Uninvolved, 1.7 [...] lymph nodes: pN2b Signed SIGNATURE ON Bull Azevedo Sarahi 01/06/191651 END OF REPORT GLUCOSE BEDSIDE [id number] 17:20:00 Test Item Value Reference Range Interpretation Comments GLUCOSE BEDSIDE TESTING (test code 103 mg/dL 70-110 N = GLUBED) GLUCOSE BEDSIDE [id number] 11:28:00 Test Item Value Reference Range Interpretation Comments GLUCOSE BEDSIDE TESTING (test code = 87 mg/dL 70-110 N GLUBED) GLUCOSE BEDSIDE [id number] 07:23:00 Test Item Value Reference Range Interpretation Comments GLUCOSE BEDSIDE TESTING (test code 108 mg/dL 70-110 N = GLUBED) GLUCOSE BEDSIDE [id number] 20:29:00 Test Item Value Reference Range Interpretation Comments GLUCOSE BEDSIDE TESTING (test code = 99 mg/dL 70-110 N GLUBED) GLUCOSE BEDSIDE [id number] 16:28:00 Test Item Value Reference Range Interpretation Comments GLUCOSE BEDSIDE TESTING (test code = 84 mg/dL 70-110 N GLUBED) GLUCOSE BEDSIDE [id number] 11:30:00 Test Item Value Reference Range Interpretation Comments GLUCOSE BEDSIDE TESTING (test code 106 mg/dL 70-110 N = GLUBED) GLUCOSE BEDSIDE [id number] 07:38:00 Test Item Value Reference Range Interpretation Comments GLUCOSE BEDSIDE TESTING (test code 120 mg/dL 70-110 H = GLUBED) CBC W/AUTO [id number] 06:24:00 Test Item Value Reference Range Interpretation [...] = NO DIFF/SCN CRITERIA MDIFF) GLUCOSE BEDSIDE [id number] 21:45:00 Test Item Value Reference Range Interpretation Comments GLUCOSE BEDSIDE TESTING (test code 135 mg/dL 70-110 H = GLUBED) BASIC METABOLIC [id number] 18:20:00 Test Item Value Reference Range Interpretation [...] code = CA) 8.1 MG/DL 8.5-10.1 L [id number] 18:20:00 Test Item Value Reference Range Interpretation Comments PHOSPHOROUS (test code = PHOS) 3.2 MG/DL 2.5-4.9 N [id number] 18:20:00 Test Item Value Reference Range Interpretation Comments MAGNESIUM (test code = MAG) 1.7 MG/DL 1.8-2.4 L GLUCOSE BEDSIDE [id number] 16:54:00 Test Item Value Reference Range Interpretation Comments GLUCOSE BEDSIDE TESTING (test code 160 mg/dL 70-110 H = GLUBED) GLUCOSE BEDSIDE [id number] 14:29:00 Test Item Value Reference Range Interpretation Comments GLUCOSE BEDSIDE TESTING (test code 136 mg/dL 70-110 H = GLUBED) GLUCOSE BEDSIDE [id number] 07:31:00 Test Item Value Reference Range Interpretation Comments GLUCOSE BEDSIDE TESTING (test code 125 mg/dL 70-110 H = GLUBED) Notes Date/Time Note Provider Source 2019-01-18 12:58:00-00:00 [id number] [facility] [address] [place], [place] [id number] PATIENT NAME: RACHAEL OQUENDO ADMIT DATE: 01/14/19 ACCOUNT NO: [id number] ROOM NO: AGE: 58 REPORT TYPE: OPERATIVE REPORT SEX: M ADMITTING PHYSICIAN: ATTENDING PHYSICIAN: Kevin Rollins MD OPERATION DATE: 01/14/2019 PREOPERATIVE DIAGNOSIS: Stage III colon cancer i n need for long-term central venous access. POSTOPERATIVE DIAGNOSES: 1. Stage III colon cancer in need for long-term central venous access. 2. Status post ultrasound-guided placement of a right internal jugular Port-A-Cath placement. PROCEDURE PERFORMED: Ultrasound-guided p lacement of the right internal jugular Port-A-Cath and fluoroscopic interpretation. SURGEON: Kevin Rollins MD. COMPLIANCE INVESTIGATOR: None. ANESTHESIA: General, LMA plus local. INDICATIONS FOR PROCEDURE: Mr. Oquendo is a 58-yea r-old gentleman who was recently diagnosed with stage III colon cancer w ho is in need of long-term central venous access for chemotherapy. NARRATIVE OF PROCEDURE: Prior to the procedure, the risks, benefits, and alternatives of the procedur e were explained to the patient and the patient did provide informed consent. Af ter obtaining the informed consent, the patient was taken back to the operating room and positioned on the OR table in supine position. A time-out was the n performed by all participating parties and agreed upon as being correct. The p atient did receive perioperative antibiotics within one hour of skin incision. The patient did have SCDs on and functioning prior to induction of anesthesia. All participants in the operation were dressed in appropriate surgical attire including pham t, mask, gloves, gown, eye protection, and shoe covers. The patient was then in duced under general anesthesia and LMA was placed. The patient was then repositioned wi th a shoulder roll placed transversely behind his shoulders to allow for s light hyperextension of the neck. The patient's chest was then prepped by cl ipping the excess hair with clippers and removing the loose hair with tape. Then, using the ultrasound probe, the right internal jugular vein was evalu ated for patency and found to have no evidence of thrombosis or occlus ion. At this time, the patient's right neck and chest was then prep ped with ChloraPrep and given sufficient time to dry prior to draping with surgical towels an d sterile blue drapes. Then, using the ultrasound in a sterile ultr asound probe cover, the right internal jugular vein PATIENT NAME: RACHAEL OQUENDO was identified and the area overlying the skin w as anesthetized with 0.25% Marcaine. Then, using an introducer need le and syringe, the skin was punctured and the needle was advanced to the lumen of the internal jugular under ultrasound guidance. Upon entry into the lumen, the plunger of the syringe was aspirated and dark venous-appearing blood was re turned. At this point, the syringe was disconnected leaving the introducer needle in place. Then, the guidewire was passed into th e lumen of the vessel through the introducer needle. Then, a small stab incision was made at the base of the introducer needle and the skin in preparation for passage of the nitin ter and subsequent to that. Then, the introducer needle was removed leaving the guidewire in place. The guidewire was then clamped to the drapes while a ttention was turned to the patient's right chest wall f or creation of a pocket for the port. At this time, using local anesthetic, the area was infiltrated on the patient's right chest wall for local pain control. Then, a transverse incision was made with a #15-scalpel. The dissection was carried through the dermis into the subcutaneous tissue using electrocautery Bovie. Hemostasis was achieved concurrently throughout the dissection using edita ctrocautery Bovie. After creation of a subcutaneous p ocket inferior to the incision using hemostat clamps and the electrocautery Bovie, the catheter was c onnected to the subcutaneous tunneler. Then, the catheter was measured with t he assistance of fluoroscopic imaging to have the catheter in the superior vena cava at the junction with the right atrium. After probably measuring the nitin ter was cut to size and then tunneled from the chest wall subcutaneously to the skin incision adjacent to the wire. After successfully tunneling the catheter, a dilator and sheath were passed over the guidewire into the lumen of the internal jugular vein. The dilator was removed leaving the sheath in place and the guidewire was also removed. Then, the catheter was then passed into the sheath into the lumen of the internal jugular vein and then the sheath wa s peeled away. After peeling away the sheath leaving the catheter in place, fluoroscopic imaging was used to appropriately withdrawal the catheter to have proper placement in the superior vena cava. After properly locating the catheter tip at the junction of the atrium and superior vena cav a, the mesh was further cut to size and clamped with a hemostat to prevent introduction of ai r. After cutting the catheter to size, it was connected to the subc utaneous port and the port was then placed into the pocket inferior to the chest wall incision and s ecured in place with 2-0 Prolene. After securing the port in place, the p ort was accessed through the skin using a Morris needle and I was able to succ essfully aspirate, after unclamping the catheter, I was able to successfu lly aspirate blood without difficulty. The catheter was then flushed with a pproximately 10 mL of heparinized saline locking. Then, the chest wall incision and neck incisions were then closed using 4-0 Vicryl. After closure of the skin, the chest wall was then infiltrated with 0.25% Marcaine for further local pain control. After anesthetizing the chest wall, the skin w as then cleaned with normal saline and patted dry prior to dressing . Both neck and chest wall incision with a surgical adhesive in the form of Dermabond. The patient t olerated the procedure well with no immediate complications. SPECIMENS REMOVED: None. IMPLANTS: An 8-Telugu PowerPort catheter. DRAINS: None. ESTIMATED BLOOD LOSS: Less than 10 mL. PATIENT NAME: RACHAEL OQUENDO DISPOSITION: At the conclusion of the case, the patient was awakened from anesthesia and LMA was remov ed. The patient was transferred to the PACU in fair condition for a postoperative chest x-ray to be discharged home per protocol. Dictated By: Kevin Rollins MD WT: OP:JHOAN/GOVIND/REBECCA Conf#: [id number]/DID#: [id number] Authenticated by Kevin Rollins MD On 9 01:34:33 PM at 1334 PATIENT NAME: RACHAEL OQUENDO 2019-01-14 17:04:00-00:00 [facility] ([facility]) Post Anesthesia Evaluation REPORT#:[id number] REPORT STATUS: Signed DATE:01/14/19 TIME:170 PATIENT: RACHAEL OQUENDO UNIT #: [id number] ROOM/BED: : 62 AGE: 58 SEX: M ATTEND: Christian Rollins MD ADM AUTHOR: Filomena Carvalho MD * ALL edits or amendments must be made on the [employer] document * General Post-op: post surgery rounds Post Anesthesia Evaluation Anes. changes from pre-op eval ORM Surgeries: Surgery Date and Time: 01/14/2019 08 Primary Procedure: PORT-A-CATH PLACEMENT Anesthetic: general LMA Date: 01/14/19 Level of consciousness: jessica ent awake, able to answer questions, participate in this eval. Vital signs: Vital Signs: Date Time Temp Pulse Resp B/P B/P Pulse O2 O2 F low FiO2 Mean Ox Delivery Rate 01/14 1103 59 18 121/73 97 Room air 03/ 1036 36.4 54 16 109/61 96 Room air 03/ 1035 36.2 56 16 109/66 96 Room air 03/07 1020 59 16 110/64 98 Room air 03/07 1015 56 16 116/66 100 03/07 1010 57 13 114/66 100 Room air 03/07 1005 58 13 110/67 100 Simple 10.256788 mask 03/07 1000 57 12 109/61 100 Simple 10.042938 mask 03/07 0955 61 15 107/61 100 Simple 10.730980 mask 03/07 0950 54 11 104/56 99 Simple 10.384164 mask 03/07 0946 Simple 10.533413 mask 03/07 0945 55 11 111/55 99 03/07 0940 36.3 54 12 124/65 99 Simple 10.53832 0 mask 03/07 0711 36.5 54 18 103/63 96 Room air Cardiovascular: CV system stable, vital signs st able Respiratory/Airway: respiratory system stable, m aintains without support Pain: adequately controlled Hydration: adequate, euvolemic Temp status: greater than 96.8F, normothermic Presence of N/V: no Anesthesia complications: no Other changes requiring f/u: none Conclusions: no apparent anes. issues, outpts ev al prior DC home Electronically Signed by Filomena Carvalho MD on 05/28 at 1705 RPT #: [id number] END OF REPORT 2019-01-14 09:51:00-00:00 [facility] ([facility]) Brief Discharge Note w/Med Rec REPORT#:[id number] REPORT STATUS: Signed DATE:01/14/19 TIME:950 PATIENT: RACHAEL OQUENDO UNIT #: [id number] ROOM/BED: : 62 AGE: 58 SEX: M ATTEND: Christian Rollins MD ADM AUTHOR: Kevin Rollins MD * ALL edits or amendments must be made on the el [employer]/computer document * Med Rec Med Rec Discharge meds: Continue taking these medications: DIVALPROEX ER (DEPAKOTE ER) 500 MG TAB.ER.24H 1,000 MILLIGRAM ORAL DAILY. metFORMIN (GLUCOPHAGE) 500 MG TAB 500 MILLIGRAM ORAL TWICE DAILY. METOPROLOL SUCC XL (TOPROL XL) 50 MG TAB.SA 50 MILLIGRAM ORAL DAILY. SIMVASTATIN (ZOCOR) 40 MG TAB 40 MILLIGRAM ORAL BEDTIME. ATENOLOL (TENORMIN) 25 MG TAB 12.5 MILLIGRAM ORAL TWICE DAILY. CLOTRIMAZOLE/BETAMET DIPROP (LOTRISONE 1%-0.05%) [address] (PROTONIX) 40 MG TAB.DR 40 MILLIGRAM ORAL DAILY. ACETAMINOPHEN/CODEINE (TYLENOL WITH CODEINE #3 3 00/30 MG) 1 TAB TAB 1-2 TABLET ORAL Q4-6HR PRN as needed for PAIN Qty = 40 Instructions: TAKE WITH FOOD. IBUPROFEN (ADVIL) 200 MG TAB 400 MILLIGRAM ORAL THREE TIMES DAILY WITH MEALS . Qty = 21 Instructions: TAKE WITH FOOD. ASPIRIN (ASPIRIN) 81 MG TAB.CHEW 81 MILLIGRAM ORAL DAILY. Start taking the following new medications: ACETAMINOPHEN (TYLENOL) 500 MG TAB 500 MILLIGRAM ORAL EVERY 6 HOURS NEEDED. as needed for pain not to exceed 4000 MG per day Qty = 10 No Refills Objective VS/I O Last Documented: Result Date Time O2 Delivery Simple mask 01/14 946 O2 Flow Rate 10.479243 01/14 946 Pulse Ox 96 01/14 711 B/P 103/63 01/14 711 Temp 97.7 01/14 711 Pulse 54 01/14 711 Resp 18 01/14 711 Brief Discharge Note w/Med Rec PCP: PCP: Shamar Abreu Problem List/A P: 1. Port-A-Cath in place 2. Colon cancer Free Text A P: 58 yo M s/p right IJ port placement Discharge to: home Discharge diagnosis: Same as above. Activity: as tolerated, light duty, no lifting Diet: regular Wound/dressing care: Clean wound daily, OK to sh ower tomorrow Pt. condition on discharge: stable Prescriptions: e-prescribe Additional instructions: Call if having fever greater t conn 101.5 or incisional issues Return to work/school: No Follow-up appointment(s): 10 days Electronically Signed by Kevin Rollins MD on 0 01/14/19 at 0953 RPT #: [id number] END OF REPORT 2019-01-14 09:43:00-00:00 [facility] ([facility]) Bedside Procedure Note REPORT#:[id number] REPORT STATUS: Signed DATE:01/14/19 TIME:942 PATIENT: RACHAEL OQUENDO UNIT #: [id number] ROOM/BED: : 62 AGE: 58 SEX: M ATTEND: Christian Rollins MD ADM AUTHOR: Kevin Rollins MD * ALL edits or amendments must be made on the el [employer]/computer document * Bedside Procedure Note Bedside Procedure Note Start date: 01/14/19 Start time: 0845 Pre-procedure diagnosis: Need for long-term centeral venous access Post-procedure diagnosis: Same as above s/p right IJ port-a-cath placement Procedure performed: Right internal jugu lar port-a-cath placement Fluoroscopic interpretation Performed by: Dr. Kevin Rollins MD Spindle Setter(s): none Indications: 58 yo M with stage 3 colon cancer in need of sergio g-term chemotherapy. Time out completed: Yes Discussed risks, benefits, alt tx: yes Consent obtained: yes Consent obtained from: patient Anesthesia: general, local - bupivacaine Observer name: Name of independent trained observer: Insertion bundle: cap, full body drape, hand hyg iene, mask, sterile gloves, sterile gown, chlorhexidine/alcohol Technique/Procedure: See dictation for full details. Specimens removed/altered: none Implant(s): 8 Fr power port Complications: none Estimated blood loss in ml's: 10 Findings: See dictation for full details. Disposition: tolerated proc. well, plan to D/C h ome Electronically Signed by Kevin Rollins MD on 0 01/14/19 at 0947 RPT #: [id number] END OF REPORT 2019-01-01 22:43:00-00:00 [facility] ([facility]) Brief Discharge Note w/Med Rec REPORT#:[id number] REPORT STATUS: Signed DATE:01/01/19 TIME:2242 PATIENT: RACHAEL OQUENDO UNIT #: [id number] ROOM/BED: [place] [address] : [birth year] AGE: 58 SEX: M ATTEND: Christian Rollins MD ADM AUTHOR: Kevin Rollins MD * ALL edits or amendments must be made on the el [employer]/computer document * Med Rec Med Rec Discharge meds: Continue taking these medications: ENALAPRIL (VASOTEC) 20 MG TAB DIVALPROEX ER (DEPAKOTE ER) 500 MG TAB.ER.24H 1,000 MILLIGRAM ORAL DAILY. metFORMIN (GLUCOPHAGE) 500 MG TAB 500 MILLIGRAM ORAL TWICE DAILY. METOPROLOL SUCC XL (TOPROL XL) 50 MG TAB.SA 50 MILLIGRAM ORAL DAILY. SIMVASTATIN (ZOCOR) 40 MG TAB 40 MILLIGRAM ORAL BEDTIME. ATENOLOL (TENORMIN) 25 MG TAB 12.5 MILLIGRAM ORAL TWICE DAILY. CLOTRIMAZOLE/BETAMET DIPROP (LOTRISONE 1%-0.05%) [address] (PROTONIX) 40 MG TAB.DR 40 MILLIGRAM ORAL DAILY. Start taking the following new medications: ACETAMINOPHEN/CODEINE (TYLENOL WITH CODEINE #3 3 00/30 MG) 1 TAB TAB 1-2 TABLET ORAL Q4-6HR PRN as needed for PAIN Qty = 40 No Refills Instructions: TAKE WITH FOOD. IBUPROFEN (ADVIL) 200 MG TAB 400 MILLIGRAM ORAL THREE TIMES DAILY WITH MEALS . Qty = 21 No Refills Instructions: TAKE WITH FOOD. Objective VS/I O Last Documented: Result Date Time Pulse Ox 98 01/02 161 B/P 124/83 01/02 161 B/P Mean 96.7 01/02 161 O2 Delivery Room air 01/02 1619 Temp 98.6 01/02 161 Pulse 69 01/02 161 Resp 18 01/02 161 O2 Flow Rate 10.881855 12/31 1430 Brief Discharge Note w/Med Rec PCP: PCP: Shamar Abreu Problem List/A P: 1. History of low anterior resection of rectum 2. Colon cancer Free Text A P: 58 yo M s/p lap LAR Discharge to: home Discharge diagnosis: Same as above Activity: as tolerated, light duty, no lifting Diet: diabetic Wound/dressing care: Clean wound daily Pt. condition on discharge: stable Prescriptions: e-prescribe Follow-up appointment(s): 7-10 days Electronically Signed by Kevin Rollins MD on 0 01/05/19 at 1112 RPT #: [id number] END OF REPORT 2019-01-01 13:36:00-00:00 [facility] General Surgery Progress Note REPORT#:[id number] REPORT STATUS: Signed DATE:01/01/19 TIME:1336 PATIENT: RACHAEL OQUENDO UNIT #: [id number] ROOM/BED: [facility]15-1 : 64 AGE: 58 SEX: M ATTEND: Christian Rollins MD ADM AUTHOR: Kevin Rollins MD * ALL edits or amendments must be made on the el [employer] document * General Date of surgery: 12/31/18 Status post: Laparoscopic LAR Subjective Chief Complaint: None HPI: 58 yo M s/p Lap LAR POD#1 Patient reports: Yes: abdominal pain, ambulating, feeling better, pain, pain controlled, tolerating diet. No: complaints, bowel movement, fever, flatus, nausea, vomiting. Objective Physical Exam VS/I O Last Documented: Result Date Time Pulse Ox 96 01/01 1109 B/P 119/72 01/01 1109 B/P Mean 87.9 01/01 1109 O2 Delivery Room air 01/01 1109 Temp 99.0 01/01 1109 Pulse 57 01/01 1109 Resp 18 01/01 1109 O2 Flow Rate 10.958232 12/31 1430 Vital Signs Date Temp Pulse Resp B/P B/P Mean Pulse Ox FiO2 12/31-01/01 97.5-99.6 57-80 9-19 101-151/61-94 74.5-87.9 94-100 24 hour I O ending at 0700: 01/01 0700 12/31 1900 Intake Total 200.00 Output Total Balance 200.00 Intake, IV 200.00 Medications: Active Meds + DC'd Last 24 Hrs Metoprolol Succinate 50 MG DAILY PO Pantoprazole 40 MG DAILY PO Simvastatin 40 MG BEDTIME PO Atenolol 12.5 MG BID PO Metformin HCl 500 MG BID PO Enalapril Maleate 20 MG DAILY 1400 PO Divalproex Sodium 1,000 MG DAILY PO Lactated Ringer's 1,000 ML .[id number] IV Enoxaparin Sodium 40 MG Q24H SUBQ Influenza Virus Vaccine 60 MCG ASDIR IM Hydromorphone HCl 0.2 MG Q3H PRN PRN IV Lactated Ringer's 1,000 ML .[id number] IV (DC) Ondansetron HCl 4 MG Q6H PRN PRN IV Sodium Chloride 10 ML ASDIR IV Lactated Ringer's 2,000 ML .STK-MED ONE IV (DC) Acetaminophen 650 MG PACU ONCE PRN PO (DC) Hydrocodone Bitart/Acetaminophen 1 TAB PACU ONCE PRN PO (DC) Hydrocodone Bitart/Acetaminophen 1 TAB PACU ONCE PRN PO (DC) Hydromorphone HCl 1 MG PACU Q15MIN PRN PRN IV (D C) Labetalol HCl 5 MG PACU Q10MIN PRN PRN IV (DC) Lactated Ringer's 1,000 ML .Q24H IV (DC) Meperidine HCl 12.5 MG PACU ONCE PRN IV (DC) Morphine Sulfate 2 MG PACU Q10MIN PRN PRN IV (DC ) Ondansetron HCl 4 MG PACU ONCE PRN IV (DC) Ketorolac Tromethamine 30 MG Q8H IV Hydromorphone HCl 0.5 MG Q3H PRN PRN IV Lactated Ringer's 1,000 ML PREOP ASDIR IV (DC) Cefazolin Sodium 3 GM PREOP ASDIR IV (CKD) Sodium Chloride 150 ML General appearance: alert, awake Wound/incision: Location: abdomen Site condition: dressing clean dry, dressing in tact, incision intact HEENT: anicteric, atraumatic, normal conjunctiva /sclera, normocephalic Respiratory: aerating well, symmetric expansion, no distress Abdomen: tenderness, soft, no distention, no gua rding Genitourinary - Male: no easton Extremities: moves all Neuro/STUNTMAN: alert, normal speech Skin: dry, intact, normal color, normal temperat ure Results Findings/Data: Laboratory Tests 01/01/19 0500: [Embedded Image Not Available] 12/31/18 1740: [Embedded Image Not Available] Laboratory Tests 01/01 01/01 12/31 12/31 12/31 1110 0716 2130 1740 1636 Chemistry Sodium (134 - 147 mmol/L) 142 Potassium (3.4 - 5.0 mmol/L) 4.2 Chloride (100 - 108 mmol/L) 108 Carbon Dioxide (21 - 32 mmol/L) 25 Anion Gap (4.0 - 15.0 GAP calc) 9.0 BUN (7 - 18 MG/DL) 16 Creatinine (0.8 - 1.3 MG/DL) 0.9 Glomerular Filtr Rate (>60 >=60 max estimate estGFR) Glucose (70 - 110 MG/DL) 140 H POC Glucose (70 - 110 mg/dL) 106 120 H 135 H 16 0 H Calcium (8.5 - 10.1 MG/DL) 8.1 L Phosphorus (2.5 - 4.9 MG/DL) 3.2 Magnesium (1.8 - 2.4 MG/DL) 1.7 L 12/31 1422 Chemistry POC Glucose (70 - 110 mg/dL) 136 H Laboratory Tests 01/01 0500 Hematology WBC (3.5 - 11.0 K/mm3) 10.6 RBC (4.70 - 6.10 M/mm3) 4.06 L Hgb (12.3 - 15.9 G/DL) 10.4 L Hct (35.8 - 46.7 %) 32.2 L MCV (86.3 - 98.9 Fl) 79.3 L MCH (28.9 - 34.4 pg) 25.6 L MCHC (32.1 - 34.5 G/DL) 32.3 RDW (11.5 - 14.5 SD) 16.4 H Plt Count (150 - 450 K/mm3) 221.0 MPV (7.0 - 9.6 fL) 12.20 H Neut % (Auto) (40 - 76 %) 73.0 Lymph % (Auto) (20.5 - 51.1 %) 17.5 L [place] % (Auto) (1.7 - 9.3 %) 9.3 Eos % (Auto) (0.0 - 6.0 %) 0.1 Baso % (Auto) (0.0 - 2.0 %) 0.1 Neut # (Auto) (1.8 - 7.6 K/mm3) 7.73 H Lymph # (Auto) (0.6 - 3.0 K/mm3) 1.9 [place] # (Auto) (0.2 - 1.5 K/mm3) 1.0 Eos # (Auto) (0.0 - 0.4 K/mm3) 0.0 Baso # (Auto) (0.0 - 0.2 K/mm3) 0.0 Add Manual Diff (CRITERIA DIFF/SCN) NO Results: labs reviewed, vital signs stable, curr ent med profile rev'd Treatment Prophylaxis Treatment Prophylaxis Easton documentation: The data below has been impo rted from nursing documentation. Any exceptions have been noted below under Provider comments. _ Nursing Documentation Date easton inserted: 12/31/18 Date easton discontinued: 01/01/19 _ Provider comments: [] Diagnosis, Assessment Plan Problem List/A P: 1. History of low anterior resection of rectum 2. Colon cancer Free Text A P: 58 yo M s/p lap low anterior resection POD#1 1. Awaiting return of bowel function to advance diet. 2. Resume home meds 3. Pain management 4. Encourage ambulation. 5. Pathology pending. Electronically Signed by Kevin Rollins MD on 0 01/01/19 at 1341 RPT #: [id number] END OF REPORT 2018-12-31 15:07:00-00:00 [id number] [place] [address] PATIENT NAME: RACHAEL OQUENDO ADMIT DATE: 12/31/18 ACCOUNT NO: [id number] ROOM NO: [facility] AGE: 58 REPORT TYPE: OPERATIVE REPORT SEX: M ADMITTING PHYSICIAN: Kevin Rollins MD ATTENDING PHYSICIAN: Kevin Rollins MD OPERATION DATE: 12/31/2018 PREOPERATIVE DIAGNOSIS: Colon cancer. POSTOPERATIVE DIAGNOSES: 1. Colon cancer. 2. Status post laparoscopic low anterior resecti on. PROCEDURE PERFORMED: Laparoscopic low anterior r esection. SURGEON: Kevin Rollins MD COMPLIANCE INVESTIGATOR: LOAN Camargo ANESTHESIA: General endotracheal anesthesia plus local. INDICATIONS FOR PROCEDURE: Mr. Oquendo is a 58-year-old gentleman, who presented to my office with distal colon cancer found on c olonoscopy. NARRATIVE OF PROCEDURE: Prior to the procedure, the risks, benefits, and alternatives of procedure were explained to the patient and the patient did provide informed consent. Af ter obtaining the informed consent, the patient was taken back to the operating room and positioned on the OR table in supine position. A time-out was the n performed by all participating parties and agreed upon as being correct. The p atient did receive perioperative antibiotics within one hour of skin incision. The patient did have SCDs on and functioning prior to induction of anesthesia. All participants in the operation were dressed in appropriate surgical attire including pham t, mask, gloves, gown, eye protection, and shoe covers. The patient was then induced un mikayla general anesthesia and intubated without complication. The patient's ab domen was then prepared by clipping the excess hair with clippers and remov ing the loose hair with tape. The patient was then repositioned into supine li thotomy using Shayne stirrups. The patient's abdomen was then prepared with Chl oraPrep and given sufficient time to dry prior to draping with surgic al towels and sterile blue drapes. The procedure was begun by performing a digital rect al exam with a gloved index finger and finding a patulous anus with normal t one and no evidence of distal obstruction. Then, a rigid sigmoidoscopy was per formed per anus to approximately 15 cm. During the rigid si gmoidoscopy was noted that the patient did have some soft brown stool present i n the rectal vault. This was evacuated with the suction. After evacuation of the rectal vault, the proctoscope was withdrawn without difficulty . Then, after scrubbing the intra-abdominal portion of this procedure was begun. The procedure was b egun by making a transverse PATIENT NAME: RACHAEL OQUENDO incision in the suprapubic region with a #15 sca lpel. The dissection was carried through the dermis into the subcutaneous tissue using electrocautery Bovie. Dissection was carried to the anterior re ctus sheath using electrocautery Bovie. Then, the rectus abdominis muscle was spread at the midline and the preperitoneal fat was dissected using electrocautery Bovie. Upon reaching the peritoneum, the peritoneum was opened using a Metzenbaum scissors. Once into the errol toneum under the protection of my index finger, the peritoneum was opened in a longitudinal fashion using electrocautery Bovie. After opening up the peritoneum, the GelPOINT ba se was introduced into the peritoneal cavity and snugged to the level of th e skin. Then, the cap with [address] was connected t o the base and secured. After securing the cap, insufflation was achieved. After achiev ement of pneumoperitoneum using a 5-mm 30-degree lapar oscope and camera, the peritoneal cavity was entered and visually inspected. After visual inspection, attention was turned to the anterior abdominal wall for placement of a singl e working trocar at the umbilicus. After placement of 5-mm worki ng trocar at the umbilicus, the camera was repositioned to this trocar site. Th en, attention was turned to the pelvis and left lower quadrant of the abdomen as the pa tient was repositioned in Trendelenburg with the left side elevated. After positioning the pelvic contents were evacuated from the pelvis using 2 atraumatic graspers. After evacuation of the small liseth l from the pelvis the colon was followed to his most distal point to identify the tattoo che made b y the endoscopist. During evaluation of the distal colon it was noted that there was indentation in the anterior surface of the colon that corresponded with the reported location of this low colonic mass. Distal to this port was t he black ink from the endoscopist tattoo gio. At this point, attentio n was turned to the mesocolon at the level of the pelvic brim. Using the L-carl k electrocautery, the peritoneum overlying the pelvic brim was opened in a longitudinal fashion. Then, using the L-hook the peritoneum wa s opened over the pelvic brim into the pelvis in a cephalic direction towards the blood supply. Then, using a combination of atraumatic grasper as well as a l aparoscopic Kittner blunt dissection was performed through the mesocolon i n the direction of the left ureter. The dissection was performed in an avasc ular plane, so minimal blood loss and was incurred. After sufficient dissecti on the left ureter was identified and observed to see vermiculation. Af ter appropriately identifying the left ureter, the blood supply was isolated i n the form of the superior rectal artery. After isolati ng the superior rectal artery a counterincision was made in the mesocolon using the LigaSure energy device. Then, using an Endo-APOLONIA stapler 45 mm with a white v ascular load the superior rectal artery was stapled and divided. After successfully dividing the sup erior rectal artery, the dissection was carried in a lateral direction to the white line of Toldt in a retrocolic fashion. After completion of the medi fm-le-nilpyjs direction, the atraumatic grasper and laparoscopic Kittner were withdrawn and the colon was then retracted in a medial fashion to expose the white line of Toldt. Then, using the LigaSure energy device, the white line of Toldt was dissected free from the lateral peritoneum. After dissecting th e white line of Toldt, the previous plane of dissection was encount ered. Then, the dissection was carried in a distal fashion along th e white line of Toldt over the pelvic brim down into the pelvis. The dissection was carried along the lateral wall of the colon to the rectosigmoid junction. The dissection was ca rried down to the anterior peritoneal reflection in the pelvis and across to the right side to completely free the specimen and colon from the peritoneal attachments. After completely dissecting the distal colon free in a circumfere ntial manner, the mesorectal blood supply was dissected to the level of the colonic wall using the LigaSure PATIENT NAME: RACHAEL OQUENDO energy device. Then, the distal point of transec tion was identified and using the Endo-APOLONIA 45 mm with a blue load with 4 firin gs the proximal rectum and distal colon was stapled and divided. After comp letely dissecting the distal colon, the specimen was mobilized into the perit chand cavity. Irrigation with the suction yarn preparation supervisor reveal ed no evidence of active bleeding. After evacuation of the irrigation from the p rasheed, the colon was then extracorporealized through the GelPOINT base. Then, using a 30-mm TA staple r the proximal point of dissection was identified and the blood supply t o the mesocolon was dissected using LigaSure energy device up to that point. T hen, the 30-mm TA was used to staple the proximal point of dissection. Then, using a #10 scalpel the proximal sigmoid was divided. After division of the colon , the specimen was passed off to be sent to pathology for analysis. Then, the anvil for the EEA stapler 33 mm was introduced into the distal colon and secured in place with pursestring PDS suture. After securing the anvil in place, it wa s reintroduced back into the peritoneal cavity. After introduction of the anv il and distal colon back into the peritoneal cavity, the insufflation was re-a chieved after capping the GelPOINT. Then, using atraumatic grasper a test run of the length of the residual colon was tested to see if the anastomosis would be under tension and it was found to be sufficien t to be tension-free anastomosis. At this time, the pelvis was again irrigated with about 100 mL of saline and evacuated with the suction yarn preparation supervisor. Then, my logging assistant went below and perform successive dilations of the anus using a rectal and anal di lators up to 31 mm. Then, the EEA stapler with lubrication was introduced per anus gently and advanced to the level of the staple line in the proximal rectum. Then, the spike was introduced through the staple line of the proximal rectum u nder direct visualization. Then, I attached the anvil to the exposed spike until it snapped in place. Then, ensuring that the colon was proper ly align and free of tension the anvil was retracted and seated against the stapler. Af ter achieving the appropriate pressure in the green zone the staple was fired with a single firing. After firing the stapler, the anvi l was partially released to allow for removal of the EEA stapler per anus. After removal of the stapl er, the anvil was fully released and disconnected fr om the spike and the anastomotic rings were examined and found to be 2 intact specimens. After observ ing the anastomotic rings, a leak test was then performed per anus by passage of a rigid proctoscope per anus distal to the anastomosis and clamping o f the descending colon proximal to the anastomosis and submerging the anastomosis under fresh saline in the pelvis. Two successful leak tests were performed after i nsufflation with the rigid proctoscope. After completion of the leak test t he chamber was opened and all gas was evacuated prior to withdrawal of the rig id proctoscope. Then, the irrigation was evacuated from the pelvis. After evacuation of the irrigation from the pelvis, no evidence of active bleeding was observed. The patient was then placed back into neutra l position prior to evacuation of all insufflation. The GelPOINT device was then removed and the one trocar at the umbilicus was also removed. Then, the Pfannenstiel incision wa s closed in a layered fashion starting with the peritoneum, which was closed w ith running 0 Vicryl. The peritoneum was then infiltra sabrina with 0.25% Marcaine for local pain control. The muscle was loosely reapproximated with interrupt ed 0 Vicryls in the midline. The anterior rectus sheath was then reapproximat ed with running #1 PDS. The anterior rectus sheath was then infiltra sabrina with 0.25% Marcaine for local pain control. Naman's fascia was then reapproximated using 0 Vicryl in a running fashion. The skin was then infiltrated with 0.25 % Marcaine for local pain control. The skin was then reapproximated with 4 -0 Vicryl in a subcuticular fashion. The trocar site was also closed using 4 -0 Vicryl in a subcuticular fashion. The skin was then cleaned with normal s dhaval and patted dry prior to PATIENT NAME: RACHAEL OQUENDO dressing with surgical adhesive in the form of S kin Affix. The patient tolerated the procedure well with no immediate c omplications. SPECIMENS REMOVED: Sigmoid colon and anastomotic rings. IMPLANTS: None. DRAINS: None. ESTIMATED BLOOD LOSS: Less than 50 mL. DISPOSITION: At the conclusion of the case, the patient was awakened from anesthesia and extubated without complic ation to be transported to the PACU in fair condition to be admitted to the floor posto peratively for advancement of diet and await return of bowel function. Dictated By: Kevin Rollins MD WT: OP:JHOAN/GOVIND/REBECCA Conf#: [id number]/DID#: [id number] Authenticated by Kevin Rollins MD On 9 02:30:53 PM at 1431 PATIENT NAME: RACHAEL OQUENDO 2018-12-31 14:35:00-00:00 [facility] ([facility]) Bedside Procedure Note REPORT#:[id number] REPORT STATUS: Signed DATE:12/31/18 TIME:1435 PATIENT: RACHAEL OQUENDO UNIT #: [id number] ROOM/BED: [place] [address] : 62 AGE: 58 SEX: M ATTEND: Christian Rollins MD ADM AUTHOR: Kevin Rollins MD * ALL edits or amendments must be made on the [employer] document * Bedside Procedure Note Bedside Procedure Note Start date: 12/31/18 Start time: 0845 Pre-procedure diagnosis: Colon cancer Post-procedure diagnosis: Same as above s/p lap low anterior resection Procedure performed: Laparoscopic low anterior r esection Performed by: Dr. Kevin Rollins MD Spindle Setter(s): Lucho Buckley LSA Indications: 58 yo M with a distal colon cancer. Time out completed: Yes Discussed risks, benefits, alt tx: yes Consent obtained: yes Consent obtained from: patient Anesthesia: general, local - bupivacaine Insertion bundle: cap, full body drape, hand hyg iene, mask, sterile gloves, sterile gown, chlorhexidine/alcohol Technique/Procedure: See dictation for full details. Specimens removed/altered: Sigmoid colon and shari stomotic rings Implant(s): none Complications: none Estimated blood loss in ml's: 50 Findings: See dictation for full details. Disposition: tolerated proc. well[facility] Electron[facility] Signed by Kevin Rollins MD on 0 12/31/18 at 1442 RPT #: [id number] END OF REPORT 2018-12-31 13:56:00-00:00 [facility] ([facility]) Post Anesthesia Evaluation REPORT#:[id number] REPORT STATUS: Signed DATE:12/31/18 TIME:1356 PATIENT: RACHAEL OQUENDO UNIT #: [id number] ROOM/BED: [place] [address] : [birth year] AGE: 58 SEX: M ATTEND: Christian Rollins MD ADM AUTHOR: Divian Crabtree CRNA * ALL edits or amendments must be made on the [employer] document * Post Anesthesia Evaluation Anes. changes from pre-op eval ORM Surgeries: Surgery Date and Time: 12/31/2018 0800 Primary Procedure: LAPAROSCOPIC LOW ANTERIOR C OLON Anesthetic: GETA Date: 12/31/18 Level of consciousness: patient awake, able to a nswer questions Vital signs: Vital Signs: Date Time Temp Pulse Resp B/P B/P Pulse O2 O2 F low FiO2 Mean Ox Delivery Rate 12/31 1345 68 12 117/64 99 Simple 10.837550 mask 12/31 1340 37.6 74 12 116/64 100 Simple 10.0000 00 mask 12/31 0642 36.7 56 18 131/77 98 Room air 0.0000 00 Cardiovascular: no change, CV system stable, vit al signs stable Respiratory/Airway: respiratory system stable, m aintains without support Pain: adequately controlled Hydration: adequate Temp status: normothermic Presence of N/V: no Anesthesia complications: no Other changes requiring f/u: none Conclusions: no apparent anes. issues Electronically Signed by Divina Crabtree CRNA 12/31/18 at 1357 RPT #: [id number] END OF REPORT 2018-12-29 16:15:00-00:00 [id number] [facility] [id number] [place] [id number] PATIENT NAME: RACHAEL OQUENDO ADMIT DATE: ACCOUNT NO: [id number] ROOM NO: AGE: 58 REPORT TYPE: eELECTROCARDIOGRAM SEX: M ADMITTING PHYSICIAN: Kevin Rollins MD ATTENDING PHYSICIAN: Kevin Rollins MD Order: [id number] Test Reason : PRE OP Test Date/Time Stamp: FriDec 29 2018 16:15:14 Blood Pressure : / mmHG Vent. Rate : 063 BPM Atrial Rate : 063 BPM P-R Int : 160 ms QRS Dur : 088 ms QT Int : 450 ms P-R-T Axes : 028 030 027 degree s QTc Int : 460 ms Normal sinus rhythm Normal ECG No previous ECGs available Confirmed by DEEPIKA FLOREZ MD ([id number]) on 12/30/2018 8:5 9:23 PM Referred By: Kevin Rollins Confirmed by:DEEPIKA FLOREZ MD at 4485 PATIENT NAME: RACHAEL OQUENDO 4
[2023-04-30 17:17] LABS: Specific Gravity > 1.030 (1.005-1.030); Urine Bacteria None Seen /HPF (<20); Urine Bilirubin NEGATIVE (Negative); Urine Blood Negative (Negative); Urine Clarity Clear (Clear); Urine Color Yellow (Yellow); Urine Glucose NEGATIVE (Negative); Urine Mucus Slight /HPF (None Seen); Urine Protein TRACE (Negative); Urine Urobilinogen 1+ (Normal)
--- NOTE | 2023-04-30 18:10 | RAD REPORT ---
EXAM DESCRIPTION: CT - Stone Protocol - 04/30/2023 5:28 pm CLINICAL HISTORY: HEMATURIA COMPARISON: Stone Protocol dated 09/17/2021; Abdomen Pelvis W Contrast dated 02/24/2021; Abdomen P rasheed W Contrast dated 12/12/2020; Abdomen Pelvis Wo Contrast dated 05/03/2019; Chest Single View date d 10/23/2021 TECHNIQUE: Thin cut axial CT imaging of the abdomen and pelvis was performed without IV contrast. Mu ltiplanar reformats were generated and reviewed. All CT scans are performed using dose optimization technique as appropriate and may include automated exposure control or mA/KV adjustment according to patient size. FINDINGS: No suspicious findings in the lung bases. The liver, spleen, and pancreas show no suspicious findings. Gallbladder is suboptimally distended, l imiting evaluation Symmetric renal contour, without suspicious parenchymal findings within limits of noncontrast techniq ue. No evidence of radiopaque calculi or hydroureteronephrosis. No dilated bowel loops or bowel wall thickening. Sequelae of distal colon resection with anastomotic suture line with the rectum. No free air, free fluid or inflammatory stranding. No suspicious mass or bulky lymphadenopathy. Small left inguinal hernia containing fat. The urinary bladder is suboptimall y distended limiting evaluation. No suspicious bony findings. IMPRESSION: No acute intra-abdominal process. Incidental findings as above.
[2023-04-30 18:15] LABS: Absolute Lymphocytes (CBC) 2.8 K/uL (0.7-4.9); Hematocrit 38.8 % (39.6-49.0); Lymphocytes % 32.2 % (15.3-44.8); MCV 85.4 fL (80-100); MPV 10.2 fL (7.6-11.3); RBC Red Blood Cell Count 4.55 M/uL (4.33-5.43)
[2023-04-30 19:16] LABS: Bilirubin Total 0.3 mg/dL (0.2-1.0); Potassium 3.8 mEq/L (3.5-5.1); Protein, Total 7.6 g/dL (6.4-8.2)
--- NOTE | 2023-04-30 19:19 | ER ---
Nurse's Notes [facility] Name: Taiwo Chery Age: 62 yrs Sex: Male : 1960 Arrival Date: 04/30/2023 Time: 15:59 Bed 11 Private MD: Diagnosis: Hematuria, unspecified Presentation: 04/30 16:40 Chief complaint: Patient states: Blood in urine x 3 weeks, mild pain w/ urination, ph denies abdominal pain, N/V or fever. Coronavirus screen: Vaccine status: Patient reports receiving the 2nd dose of the covid vaccine. Ebola Screen: No symptoms or risks identified at this time. Initial Sepsis Screen: Does the patient meet any 2 criteria? No. Patient's initial sepsis screen is negative. Does the patient have a suspected source of infection? No. Patient's initial sepsis screen is negative. Risk Assessment: Do you want to hurt yourself or someone else? Patient reports no desire to harm self or others. Onset of symptoms was April 30, 2023. 16:40 Method Of Arrival: Ambulatory ph 16:40 Acuity: LEONARD 3 ph Historical: - Allergies: 16:42 No Known Allergies; ph - PMHx: 16:42 Diabetes mellitus; Hypertensive disorder; ph - Immunization history:: Adult Immunizations unknown. - Social history:: Smoking status: Patient denies any tobacco usage or history of. Screenin:32 [facility] ED Fall Risk Assessment (Adult) History of falling in the last 3 months, as6 including since admission No falls in past 3 months (0 pts). Abuse screen: Denies threats or abuse. Denies injuries from another. Nutritional screening: No deficits noted. Tuberculosis screening: No symptoms or risk factors identified. Assessment: 19:32 General: Appears in no apparent distress. comfortable, Behavior is calm, cooperative. as6 Pain: Denies pain. Neuro: No deficits noted. Corbett Agitation-Sedation Scale (RASS): 0 - Alert and Calm Level of Consciousness is awake, alert, obeys commands, Oriented to person, place, time, situation. Cardiovascular: No deficits noted. Respiratory: No deficits noted. Airway is patent Respiratory effort is even, unlabored, Respiratory pattern is regular, symmetrical. GI: No deficits noted. Abdomen is round non-distended, obese. : Reports blood in urine. EENT: No deficits noted. No signs and/or symptoms were reported regarding the EENT system. Derm: No deficits noted. No signs and/or symptoms reported regarding the dermatologic system. Skin is intact, is healthy with good turgor, Skin is dry, Skin is normal, Skin temperature is warm. Musculoskeletal: No deficits noted. No signs and/or symptoms reported regarding the musculoskeletal system. Circulation, motion, and sensation intact. Range of motion: intact in all extremities. Vital Signs: 16:40 BP 116 / 78; Pulse 64; Resp 18; Temp 97.4; Pulse Ox 100% on R/A; Weight 99.79 kg; ph Height 5 ft. 4 in. ; 19:32 BP 121 / 72; Pulse 66; Resp 17 S; Pulse Ox 100% on R/A; as6 16:40 Body Mass Index 37.76 (99.79 kg, 162.56 cm) ph ED Course: 16:17 Patient arrived in ED. rg4 16:24 Hua Villegas PA is PHCP. [facility] 16:24 Jace Alejandra MD is Attending Physician. jmm 16:42 Triage completed. ph 16:43 Arm band placed on Patient placed in waiting room, Patient notified of wait time. ph 17:30 CT Stone Protocol In Process Unspecified. EDMS 18:19 CMP Sent. zm 18:19 Lipase Sent. zm 18:40 Inserted saline lock: 22 gauge in left wrist, using aseptic technique. Blood collected. 19:32 Salvador Rosen, RN is Primary Nurse. as6 19:32 Patient has correct armband on for positive identification. Bed in low position. Call as6 light in reach. Client placed on continuous cardiac and pulse oximetry monitoring. NIBP monitoring applied. Family accompanied patient. 19:32 No provider procedures requiring assistance completed. IV discontinued, intact, as6 bleeding controlled, No redness/swelling at site. Pressure dressing applied. Administered Medications: No medications were administered Medication: 19:32 VIS not applicable for this client. as6 Outcome: 19:19 Discharge ordered by . [facility] 19:32 Discharged to home ambulatory. as6 19:32 Condition: stable 19:32 Discharge instructions given to patient, family, Instructed on discharge instructions, follow up and referral plans. medication usage, Demonstrated understanding of instructions, follow-up care, medications, Prescriptions given X 1. 19:35 Patient left the ED. as6 Signatures: Dispatcher [employer] EDMS Hua Villegas PA PA jmm Blanchard, Shelby, RN RN Ellie Lehman RN RN Marilynn Hicks Ashby, RN RN as6 Shazia Gutierrez
--- NOTE | 2023-04-30 19:19 | EDPHYS ---
Physician Documentation [facility] Name: Taiwo Chery Age: 62 yrs Sex: Male : 1960 Arrival Date: 04/30/2023 Time: 15:59 Bed 11 Private MD: ED Physician Jace Alejandra HPI: 04/30 16:42 This 62 yrs old Male presents to ER via Ambulatory with complaints of Blood In jmm Urine. 16:42 Onset: The symptoms/episode began/occurred gradually, 3 week(s) ago. Modifying factors: jmm The symptoms are alleviated by nothing, the symptoms are aggravated by nothing. Associated signs and symptoms: Pertinent positives: hematuria, Pertinent negatives: abdominal pain, fever. The patient has experienced a previous episode. Patient has a history of colon cancer which is in remission. Historical: - Allergies: 16:42 No Known Allergies; ph - PMHx: 16:42 Diabetes mellitus; Hypertensive disorder; ph - Immunization history:: Adult Immunizations unknown. - Social history:: Smoking status: Patient denies any tobacco usage or history of. ROS: 16:42 Constitutional: Negative for fever, chills, and weight loss, Cardiovascular: Negative jmm for chest pain, palpitations, and edema, Respiratory: Negative for shortness of breath, cough, wheezing, and pleuritic chest pain. 16:42 : Positive for urinary symptoms, hematuria. 16:42 All other systems are negative. Exam: 16:42 Constitutional: This is a well developed, well nourished patient who is awake, alert, jmm and in no acute distress. Head/Face: atraumatic. Eyes: EOMI, no conjunctival erythema appreciated ENT: Moist Mucus Membranes Neck: Trachea midline, Supple Chest/axilla: Normal chest wall appearance and motion. Cardiovascular: Regular rate and rhythm. No edema appreciated Respiratory: Normal respirations, no respiratory distress appreciated Abdomen/GI: Non distended Back: Normal ROM Skin: General appearance color normal MS/ Extremity: Moves all extremities, no obvious deformities appreciated, no edema noted to the lower extremities Neuro: Awake and alert Psych: Behavior is normal, Mood is normal, Patient is cooperative and pleasant Vital Signs: 16:40 BP 116 / 78; Pulse 64; Resp 18; Temp 97.4; Pulse Ox 100% on R/A; Weight 99.79 kg; ph Height 5 ft. 4 in. ; 19:32 BP 121 / 72; Pulse 66; Resp 17 S; Pulse Ox 100% on R/A; as6 16:40 Body Mass Index 37.76 (99.79 kg, 162.56 cm) ph MDM: 16:47 Patient medically screened. [facility] 22:21 Differential diagnosis: renal cancer, uti, calculus of ureter. Data reviewed: vital [facility] signs, nurses notes, lab test result(s), radiologic studies, CT scan. Counseling: I had a detailed discussion with the patient and/or guardian regarding: the historical points, exam findings, and any diagnostic results supporting the discharge/admit diagnosis, lab results, radiology results, the need for outpatient follow up, to return to the emergency department if symptoms worsen or persist or if there are any questions or concerns that arise at home. 04/30 16:52 Order name: CBC with Diff; Complete Time: 18:20 [facility] 04/30 16:52 Order name: CMP; Complete Time: 19:19 [facility] 04/30 16:52 Order name: Lipase; Complete Time: 19:19 [facility] 04/30 16:52 Order name: Urinalysis w/ reflexes; Complete Time: 17:18 [facility] 04/30 16:52 Order name: CT Stone Protocol; Complete Time: 18:14 [facility] 04/30 16:52 Order name: IV Saline Lock; Complete Time: 18:54 [facility] 04/30 16:52 Order name: Labs collected and sent; Complete Time: 18:19 [facility] 04/30 18:19 Order name: Labs - recollect needed: recollect green top; Complete Time: 18:40 bd Administered Medications: No medications were administered Disposition: 05/01 09:59 Co-signature as Attending Physician, Jace Alejandra MD I reviewed the patient's care rt provided by the Advanced Practice Provider and agree with the diagnosis and treatment plan. Disposition Summary: 04/30/23 19:19 Discharge Ordered Location: Home [facility] Condition: Stable [facility] Diagnosis - Hematuria, unspecified jmm Followup: jmm - With: Private Physician - When: 2 - 3 days - Reason: Recheck today's complaints, Continuance of care, Re-evaluation by your physician Discharge Instructions: - Discharge Summary Sheet [facility] - Hematuria, Adult [facility] Forms: - Medication Reconciliation Form [facility] - Thank You Letter jmm - Antibiotic Education jmm - Prescription Opioid Use jmm Prescriptions: - Cephalexin 500 mg Oral Capsule - take 1 capsule by ORAL route every 8 hours for 10 days; 30 capsule; Refills: 0, jmm Product Selection Permitted Signatures: Dispatcher [employer] Evette Washington Joel, PA PA jmm Hall, Patricia, RN RN ph Jace Alejandra MD MD rt
[2023-04-30 20:09] VITALS: TEMP 97.4; O2SAT 100
[2023-04-30 20:12] VITALS: BP 121/72
== END 2023-04-30 19:35 | disposition home or self-care (01) ==
LOC: ER 15:59
DX: R31.9 Hematuria, unspecified (principal)
CPT/HCPCS: 36415; 74176; 76377; 80053; 81001; 83690; 85025

== ENCOUNTER 2023-05-25 14:49 | Emergency (ER) | payer OTHER ==
--- OUTSIDE RECORDS SUMMARY | 2023-05-25 14:55 | XMS REPORT | Continuity of Care Document ---
:1960 Author Organization [facility] t Address [address] [facility] [address] [place] [address] Care Team Providers Name Role Phone DIANA ANABELA Primary Care Physician Unavailable Darius Gallo Attending Clinician Unavailable Brittanie Wing Attending Clinician Unavailable ABHAY ASTORGA Attending Clinician Unavailable LINH JEFFERS Attending Clinician Unavailable GEORGINA FOSTER Attending Clinician Unavailable LAB90 Attending Clinician Unavailable RAMY SIDDIQUI Attending Clinician Unavailable GUS NERI Attending Clinician Unavailable DARIUS GALLO Attending Clinician Unavailable NEO CARBAJAL Attending Clinician Unavailable DARREL CHOI Attending Clinician Unavailable MD ELISE Attending Clinician Unavailable PL, TECH 1 Attending Clinician Unavailable CHRISTIANO MENDOZA Attending Clinician Unavailable LATHA ROCK Attending Clinician Unavailable YOHAN FRIEDMAN Attending Clinician Unavailable MICAH ULLOA Attending Clinician Unavailable Raul Elkins DO Attending Clinician JERROD ANDERSON Attending Clinician Unavailable LATHA AVILA Attending Clinician Unavailable Rafia Medina Attending Clinician RAFIA GORDON Attending Clinician Unavailable Doctor Unassigned, [place] Attending Clinician Unavailable Errol Callejas Attending Clinician ERROL SHARP Attending Clinician Unavailable JERROD ANDERSON Admitting Clinician Unavailable Payers Payer Name Policy Type Policy Number Effective Date Expiration Date S awilda HUMANFox MENDEZ GOLD 7 [id number] 2022 PLUS 33 D-SNP 00:00:00 OA HUMANA MA 5 [id number] 2022 00:00:00 KCA GOLD 16 [id number] 2021 [employer] HMO-POS 00:00:00 HUMANA MEDICARE 53 [id number] 2022 Common Sp les 00:00:00 [facility] [id number] 2019 HEALTH CHOICE 00:00:00 Problems Condition Condition [...] 00 Externa l Gastroesop Gastroesop Disease Active K elsey hageal hageal 4-18 Seybold reflux reflux 00:00: - disease disease 00 Externa without without l esophagiti esophagiti s s 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 - chronic intractab le back pain with radicular features, already on neuropath ic and antidepre ssant medicatio ns with minimal benefit, two courses conservat chay PT- MRI thoracic spine w/ and w/o [...] with 00 Externa hyperglyce hyperglyce l kurtis kutris [id number] Other Problem Common chronic Spirit pain - [facility] Incomplete Incomplete Problem C ommon emptying emptying Spirit of bladder of bladder - [facility] Disorder Renal Problem Common of kidney mass, Spirit and/or right - CHI ureter [facility] [id number] Primary Problem Comm on osteoarthr Spirit itis of - [facility] right knee [facility] [id number] Primary Problem Comm on osteoarthr Spirit itis of - [facility] left knee [facility] [id number] BPH loc w Problem Com mon urin Spirit obs/LUTS - [facility] [id number] Right-side Problem Co mmon d low back Spirit pain - [facility] without [facility] chronicity Spasm Jerking Problem Common movements Spirit of - [facility] extremitie [facility] [id number] CPAP Problem Common (continuou Spirit s positive - [facility] airway [facility] pressure) [facility] dependence Medica [facility] [id number] 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 [id number] Urethritis Problem Com mon Spirit - [facility] [id number] Other Problem Commo n [id number] stricture Spirit of - [facility] urethral St meatus in [facility] [id number] Body mass Problem Com mon index Spirit (BMI) - [facility] 40.0-44.9, [facility] Hyperlipid Hyperlipid Problem C ommon emia emia Spirit - [facility] [id number] Depression Problem Co mmon with Spirit anxiety - [facility] [id number] Morbid Problem Common obesity Spirit - [facility] [id number] Essential Problem Comm on hypertensi Spirit on - 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 Phimosis Phimosis Problem Commo n Spirit - [facility] [id number] Lower Problem Common urinary Spirit tract - [facility] symptoms ([facility] Acute Acute Problem Common cystitis cystitis [facility] with - [facility] hematuria [facility] [id number] Hx of Problem Common colon Spirit cancer, - [facility] stage III [facility] Cancer Cancer Problem Common [facility] Dizziness Dizziness Problem Com mon [facility] [id number] Leg Problem Common heaviness [facility] Headache Frequent Problem Commo n headaches Spirit [facility] [id number] Obstructiv Problem Com mon e sleep Spirit apnea [facility] Gross Gross Problem Common hematuria hematuria Spir [facility] 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 Sex Assigned At Com mon [facility] Gender identity Kateryna duron - External Sexual orientation Kateryna Gauthier - External Exposure to Not sure Kateryna zepeda SARS-CoV-2 (event) History of Social 2021-11-26 2021-11-26 Kateryna Gauthier - function 00:00:00 00:00:00 External Smoking Status Start Date Stop Date Source Former Smoker 2023-03-24 00:00:00 2023-03-24 00:00:00 Common S pirit - [facility] nter Never smoked tobacco Kateryna alan - External Medications Ordered Filled Start Stop Current Ordering Indication Dosage Frequency Signature Comments Components Source Medication Medication Date Date Medication? Clinician (SIG) Name Name Naproxen Naproxen 0 No BID Naproxen 500 MG 500 MG [...] by mouth Externa at bedtime l HYDROcodone 0 Yes [id number] 1{tbl} QD Take 1 Kateryna -Acetaminop 4-28 tablet by Rosalba bold hen 10-325 11:36: mouth - MG oral 59 daily as Externa Tablet needed for l pain Trazodone 0 Yes Trazodone Dre sey HCl 100 MG 4-28 Oral once Seyb old oral Tablet 11:36: daily - 59 active Externa l Eszopiclone Yes Eszopiclon Kateryna 3 MG oral 4-28 e Oral Seybold Tablet 11:36: once daily - 59 active Externa l Gabapentin 2022-0 Yes 1 in AM, 1 K elsey 300 MG oral 4-28 at noon, Seyb old Capsule 00:00: and 2 at - 00 night Externa l Enalapril 2022-0 Yes [id number] TAKE 1 Ke lsey Maleate 10 4-25 TABLET Seybold MG oral 00:00: EVERY DAY - Tablet 00 Externa l Blood 2022-0 Yes USE Kateryna Glucose 4-25 MONITOR TO Seybol d Monitoring 00:00: CHECK - Suppl (True 00 BLOOD Externa Metrix Air SUGAR l Glucose Meter) w/Device does not apply Kit Pantoprazol 0 Yes [id number] TAKE 1 Kateryna e Sodium 40 4-25 TABLET Seybol d MG oral 00:00: EVERY DAY - Tablet 00 Externa Delayed l Response Blood 2022-0 Yes Kateryna Glucose 4-25 Seybold Calibration 00:00: - (True 00 Externa Metrix l Level 1) Low in vitro Solution Metoprolol 0 Yes [id number] 25mg Take 1 K elsey Tartrate 4-24 tablet (25 Seybo ld (LOPRESSOR) 00:00: mg total) - 25 MG oral 00 by mouth 2 Ext gerber Tablet times l daily HYDROcodone 2022-0 Yes [id number] 1{tbl} QD Take 1 Kateryna -Acetaminop 4-18 [...] - 27 bedtime Externa l Aspirin 81 2022-0 Yes 1{tbl} Take [...] at - 00 night Externa l Gabapentin 2023-0 2023- No 1 in AM, 1 Kateryna 300 MG oral 3-08 -28 at noon, Sey bold Capsule 00:00: 00:00 and 2 at - 00 :00 night Externa l Albuterol 2022-0 Yes [id number] 2{puff} Q.25D Inhale 2 Kateryna HFA 108 (90 2-23 puffs into Se ybold Base) 00:00: the lungs - MCG/ACT IN 00 every 6 [employer] a AERS hours as l needed for wheezing Albuterol 2022-0 Yes [id number] 2{puff} Q.25D Inhale 2 Kateryna HFA 108 (90 2-23 puffs into Se ybold Base) 00:00: the lungs - MCG/ACT IN 00 every 6 [employer] AERS hours as l needed for wheezing Albuterol 0 Yes [id number] 2{puff} Q.25D Inhale 2 Kateryna HFA 108 (90 2-23 puffs into Se ybold Base) 00:00: the lungs - MCG/ACT IN 00 every 6 [employer] AERS hours as l needed for wheezing Aspirin 81 2022-0 Yes 1{tbl} Take 1 Dre sey MG oral 2-09 tablet by Seybold Tablet 09:34: mouth - Delayed 36 Externa Response l Tizanidine 0 Yes 1{tbl} Take 1 Dre sey HCl 4 MG 2-09 tablet by Seybol d oral Tablet 09:34: mouth at - 36 bedtime Externa l Aspirin 81 0 Yes 1{tbl} Take 1 Dre sey MG oral 2-09 tablet by Seybold Tablet 09:34: mouth - Delayed 36 Externa Response l Tizanidine 2022-0 Yes 1{tbl} Take 1 Dre sey HCl 4 MG 2-09 tablet by Seybol d oral Tablet 09:34: mouth at - 36 bedtime Externa l Gabapentin 2022-0 Yes 1 po q HS Ke lsey 300 MG oral 2-09 x 7 days, Sey bold Capsule 00:00: then 1 po - 00 BID x 7 Externa days, then l 1 po TID Gabapentin 2022-0 Yes 1 po q HS Ke lsey 300 MG oral 2-09 x 7 days, Sey bold Capsule 00:00: then 1 po - 00 BID x 7 Externa days, then l 1 po TID Gabapentin 2022-0 2022- No 1 po q HS K elsey 300 MG oral 2-09 03-07 x 7 days, Se ybold Capsule 00:00: 00:00 then 1 po - 00 :00 BID x 7 Externa days, then l 1 po TID Sertraline 2022-0 Yes 50mg Take 50 mg [...] 55 bedtime Externa l HYDROcodone 2022-0 Yes [id number] 1{tbl} QD Take 1 Kateryna -Acetaminop 1-18 tablet by Rosalba siddiqi ([employer]) 00:00: mouth - 5-325 MG 00 daily as Externa oral Tablet needed for l pain Doxepin HCl 2022-0 Yes [id number] 50mg Take 1 K elsey 50 MG oral 1-18 capsule Seybol d Capsule 00:00: (50 mg - 00 total) by Externa mouth l daily Bupropion 2022-0 Yes [id number] 150mg QD Take 1 K elsey HCL XL 150 1-18 tablet Seybold MG OR TB24 00:00: (150 mg - 00 total) by Externa mouth l daily as needed (anxiety) HYDROcodone 2022-0 Yes [id number] 1{tbl} QD Take 1 Kateryna -Acetaminop 1-18 tablet by Rosalba siddiqi ([employer]) 00:00: mouth - 5-325 MG 00 daily as Externa oral Tablet needed for l pain Doxepin HCl 2022-0 Yes [id number] 50mg Take 1 K elsey 50 MG oral 1-18 capsule Seybol d Capsule 00:00: (50 mg - 00 total) by Externa mouth l daily Bupropion 2022-0 Yes [id number] 150mg QD Take 1 K elsey HCL XL 150 1-18 tablet Seybold MG OR TB24 00:00: (150 mg - 00 total) by Externa mouth l daily as needed (anxiety) HYDROcodone 2022-0 Yes [id number] 1{tbl} QD Take 1 Kateryna -Acetaminop 1-18 tablet by Rosalba siddiqi ([employer]) 00:00: mouth - 5-325 MG 00 daily as Externa oral Tablet needed for l pain Doxepin HCl 2022-0 Yes [id number] 50mg Take 1 K elsey 50 MG oral 1-18 capsule Seybol d Capsule 00:00: (50 mg - 00 total) by Externa mouth l daily Bupropion 2022-0 Yes [id number] 150mg QD Take 1 K elsey HCL XL 150 1-18 tablet Seybold MG OR TB24 00:00: (150 mg - 00 total) by Externa mouth l daily as needed (anxiety) HYDROcodone 0 Yes [id number] 1{tbl} QD Take 1 Kateryna -Acetaminop 1-18 tablet by Rosalba siddiqi ([employer]) 00:00: mouth - 5-325 MG 00 daily as Externa oral Tablet needed for l pain Doxepin HCl 2022-0 Yes [id number] 50mg Take 1 K elsey 50 MG oral 1-18 capsule Seybol d Capsule 00:00: (50 mg - 00 total) by Externa mouth l daily Bupropion 2022-0 Yes [id number] 150mg QD Take 1 K elsey HCL XL 150 1-18 tablet Seybold MG OR TB24 00:00: (150 mg - 00 total) by Externa mouth l daily as needed (anxiety) Doxepin HCl 2022-0 Yes [id number] 50mg Take 1 K elsey 50 MG oral 1-18 capsule Seybol d Capsule 00:00: (50 mg - 00 total) by Externa mouth l daily Bupropion 2022-0 Yes [id number] 150mg QD Take 1 K elsey HCL XL 150 1-18 tablet Seybold MG OR TB24 00:00: (150 mg - 00 total) by Externa mouth l daily as needed (anxiety) Doxepin HCl 2022-0 Yes [id number] 50mg Take 1 K elsey 50 MG oral 1-18 capsule Seybol d Capsule 00:00: (50 mg - 00 total) by Externa mouth l daily Bupropion 2022-0 Yes [id number] 150mg QD Take 1 K elsey HCL XL 150 1-18 tablet Seybold MG OR TB24 00:00: (150 mg - 00 total) by Externa mouth l daily as needed (anxiety) HYDROcodone 2022-0 2022- No [id number] 1{tbl} QD Take 1 Kateryna -Acetaminop 1-18 04-18 tablet by Se oliverio siddiqi ([employer]) 00:00: 00:00 mouth - 5-325 MG 00 :00 daily as Externa oral Tablet needed for l pain Amoxicillin 2022-0 Yes [id number] 1{tbl} Take 1 Kateryna -Pot 1-05 tablet by Seybold Clavulanate 00:00: mouth 2 - 875-125 MG 00 times Externa oral Tablet daily l Benzonatate Yes [id number] 100mg Q.[id number] Take 1 Kateryna (Tessalon 11-14 [id number] capsule S eybold Dakotahes) 100 00:00: 3D (100 mg - MG oral 00 total) by Externa Capsule mouth 3 l times daily as needed for cough Amoxicillin 0 2022- No [id number] 1{tbl} Take 1 Kateryna -Pot 11-14 tablet by Seybold Clavulanate 00:00: 00:00 mouth 2 - 875-125 MG 00 :00 times Externa oral Tablet daily l Benzonatate 2022- No [id number] 100mg Q.[id number] Take 1 Kateryna (Tessalon 11-14 [id number] capsule Seybold Perles) 100 00:00: 00:00 3D [...] l Tizanidine 2021-11 Yes 1{tbl} Take 1 Rde sey HCl 4 MG 0-31 tablet by Seybol d oral Tablet 09:30: mouth at - 15 bedtime Externa l Gabapentin 2021-11 Yes 600mg Take 600 Ke lsey 600 MG oral 0-31 mg by Seybold Tablet 09:30: mouth 3 - 15 times Externa daily l Enalapril 2021-11 Yes [id number] 10mg Take 1 Ke lsey Maleate 10 0-31 tablet (10 Sey bold MG oral 00:00: mg total) - Tablet 00 by mouth Externa daily l Pantoprazol 2021-11 Yes [id number] 40mg Take 1 Kateryna e Sodium 40 0-31 tablet (40 Se ybold MG oral 00:00: mg total) - Tablet 00 by mouth Externa Delayed daily l Response Enalapril 2021-11 Yes [id number] 10mg Take 1 Ke lsey Maleate 10 0-31 tablet (10 Sey bold MG oral 00:00: mg total) - Tablet 00 by mouth Externa daily l Pantoprazol 2021-11 Yes [id number] 40mg Take 1 Kateryna e Sodium 40 0-31 tablet (40 Se ybold MG oral 00:00: mg total) - Tablet 00 by mouth Externa Delayed daily l Response Enalapril 2021-11 Yes [id number] 10mg Take 1 Ke lsey Maleate 10 0-31 tablet (10 Sey bold MG oral 00:00: mg total) - Tablet 00 by mouth Externa daily l Pantoprazol 2021-11 Yes [id number] 40mg Take 1 Kateryna e Sodium 40 0-31 tablet (40 Se ybold MG oral 00:00: mg total) - Tablet 00 by mouth Externa Delayed daily l Response Enalapril 2021-11 Yes [id number] 10mg Take 1 Ke lsey Maleate 10 0-31 tablet (10 Sey bold MG oral 00:00: mg total) - Tablet 00 by mouth Externa daily l Pantoprazol 2021-11 Yes [id number] 40mg Take 1 Kateryna e Sodium 40 0-31 tablet (40 Se ybold MG oral 00:00: mg total) - Tablet 00 by mouth Externa Delayed daily l Response Enalapril 2021-11 Yes [id number] 10mg Take 1 Ke lsey Maleate 10 0-31 tablet (10 Sey bold MG oral 00:00: mg total) - Tablet 00 by mouth Externa daily l Pantoprazol 2021-11 Yes [id number] 40mg Take 1 Kateryna e Sodium 40 0-31 tablet (40 Se ybold MG oral 00:00: mg total) - Tablet 00 by mouth Externa Delayed daily l Response Enalapril 2021-11 Yes [id number] 10mg Take 1 Ke lsey Maleate 10 0-31 tablet (10 Sey bold MG oral 00:00: mg total) - Tablet 00 by mouth Externa daily l Pantoprazol 2021-11 Yes [id number] 40mg Take 1 Kateryna e Sodium 40 0-31 tablet (40 Se ybold MG oral 00:00: mg total) - Tablet 00 by mouth Externa Delayed daily l Response Enalapril 2021-11 Yes [id number] 10mg Take 1 Ke lsey Maleate 10 0-31 tablet (10 Sey bold MG oral 00:00: mg total) - Tablet 00 by mouth Externa daily l Pantoprazol 2021-11 Yes [id number] 40mg Take 1 Kateryna e Sodium 40 0-31 tablet (40 Se ybold MG oral 00:00: mg total) - Tablet 00 by mouth Externa Delayed daily l Response Enalapril 2021-11 Yes [id number] 10mg Take 1 Ke lsey Maleate 10 0-31 tablet (10 Sey bold MG oral 00:00: mg total) - Tablet 00 by mouth Externa daily l Pantoprazol 2021-11 Yes [id number] 40mg Take 1 Kateryna e Sodium 40 0-31 tablet (40 Se ybold MG oral 00:00: mg total) - Tablet 00 by mouth Externa Delayed daily l Response Enalapril 2021- No [id number] 20mg Take 1 K elsey Maleate 20 07-29 10-31 tablet (20 Se ybold MG oral 00:00: 00:00 mg total) - Tablet 00 :00 by mouth Externa daily l OrthoVisc OrthoVisc No 15mg Com mon 07-09 Spirit 00:00: - [facility] 00 [facility] Blood 0 Yes Use Kateryna Glucose 8-30 monitor to Seybol d Monitoring 00:00: check - Suppl 00 blood Externa (Blood sugar l Glucose Monitor System) w/Device does not apply Kit Blood 0 Yes Use to Kateryna Glucose 8-30 check FSBS Seybol d Monitoring 00:00: as needed. - Suppl 00 Externa (Blood l Glucose Monitor System) w/Device does not apply Kit Glucose 0 Yes [id number] 1{each} 1 each by Kateryna Blood in 8-30 other Seybold vitro Strip 00:00: route - 00 daily Use Externa 1 as l directed twice daily to check blood glucose. GNP Sterile 0 Yes 1{each} 1 each by Kateryna Lancets 33G 8-30 does not Seyb old does not 00:00: apply - apply Misc 00 route 2 to Ext gerber 3 times l daily Blood 0 Yes Use Kateryna Glucose 8-30 monitor to Seybol d Monitoring 00:00: check - Suppl 00 blood Externa (Blood sugar l Glucose Monitor System) w/Device does not apply Kit Blood 2021-0 Yes Use to Kateryna Glucose 8-30 check FSBS Seybol d Monitoring 00:00: as needed. - Suppl 00 Externa (Blood l Glucose Monitor System) w/Device does not apply Kit Glucose 2021-0 Yes [id number] 1{each} 1 each by Kateryna Blood in 8-30 other Seybold vitro Strip 00:00: route - 00 daily Use Externa 1 as l directed twice daily to check blood glucose. GNP Sterile 2021-0 Yes 1{each} 1 each by Kateryna Lancets 33G 8-30 does not Seyb old does not 00:00: apply - apply Misc 00 route 2 to Ext gerber 3 times l daily Blood Yes Use Kateryna Glucose 8-30 monitor to Seybol d Monitoring 00:00: check - Suppl 00 blood Externa (Blood sugar l Glucose Monitor System) w/Device does not apply Kit Blood Yes Use to Kateryna Glucose 830 check FSBS Seybol d Monitoring 00:00: as needed. - Suppl 00 Externa (Blood l Glucose Monitor System) w/Device does not apply Kit Glucose Yes [id number] 1{each} 1 each by Kateryna Blood in 07-09 other Seybold vitro Strip 00:00: route - 00 daily Use Externa 1 as l directed twice daily to check blood glucose. GNP Sterile Yes 1{each} 1 each by Kateryna Lancets 33G 07-09 does not Seyb old does not 00:00: apply - apply Misc 00 route 2 to Ext gerber 3 times l daily Blood 2021-0 2022- No Use Kateryna Glucose 811-27 monitor to Seybo ld Monitoring 00:00: 00:00 check - Suppl 00 :00 blood Externa (Blood sugar l Glucose Monitor System) w/Device does not apply Kit Blood 2022- No Use to Kateryna Glucose 830 11-27 check FSBS Seybo ld Monitoring 00:00: 00:00 as needed. - Suppl 00 :00 Externa (Blood l Glucose Monitor System) w/Device does not apply Kit Glucose 0 202- No [id number] 1{each} 1 each by Kateryna Blood in 07-09 other Seybold vitro Strip 00:00: 00:00 route - 00 :00 daily Use Externa 1 as l directed twice daily to check blood glucose. GNP Sterile 2021-0 2022- No 1{each} 1 each by Kateryna Lancets 33G 07-09 does not Sey bold does not 00:00: 00:00 apply - apply Misc 00 :00 route 2 to Ext gerber 3 times l daily Metformin Yes [id number] 1000mg Take 1 Kateryna HCl 1000 MG 8 tablet Seybol d oral Tablet 00:00: (1,000 mg - 00 total) by Externa mouth in l the morning and 1 tablet (1,000 mg total) in the evening. Take with meals. Metoprolol 2021-0 Yes [id number] 25mg Take 1 K elsey Tartrate 25 8-28 tablet (25 Se ybold MG oral 00:00: mg total) - Tablet 00 by mouth 2 Externa times l daily Atorvastati 2021-0 Yes [id number] 40mg Take 1 Kateryna n Calcium 8-28 tablet (40 Seyb old 40 MG oral 00:00: mg total) - Tablet 00 by mouth Externa daily l Metformin 2021-0 Yes [id number] 1000mg Take 1 Kateryna HCl 1000 MG 8-28 tablet Seybol d oral Tablet 00:00: (1,000 mg - 00 total) by Externa mouth in l the morning and 1 tablet (1,000 mg total) in the evening. Take with meals. Metoprolol 2021-0 Yes [id number] 25mg Take 1 K elsey Tartrate 25 8-28 tablet (25 Se ybold MG oral 00:00: mg total) - Tablet 00 by mouth 2 Externa times l daily Atorvastati 2021-0 Yes [id number] 40mg Take 1 Kateryna n Calcium 8-28 tablet (40 Seyb old 40 MG oral 00:00: mg total) - Tablet 00 by mouth Externa daily l Metformin 2021-0 Yes [id number] 1000mg Take 1 Kateryna HCl 1000 MG 8-28 tablet Seybol d oral Tablet 00:00: (1,000 mg - 00 total) by Externa mouth in l the morning and 1 tablet (1,000 mg total) in the evening. Take with meals. Metoprolol 2021-0 Yes [id number] 25mg Take 1 K elsey Tartrate 25 8-28 tablet (25 Se ybold MG oral 00:00: mg total) - Tablet 00 by mouth 2 Externa times l daily Atorvastati 2021-0 Yes [id number] 40mg Take 1 Kateryna n Calcium 8-28 tablet (40 Seyb old 40 MG oral 00:00: mg total) - Tablet 00 by mouth Externa daily l Metformin 2021-0 Yes [id number] 1000mg Take 1 Kateryna HCl 1000 MG 8-28 tablet Seybol d oral Tablet 00:00: (1,000 mg - 00 total) by Externa mouth in l the morning and 1 tablet (1,000 mg total) in the evening. Take with meals. Metoprolol 2021-0 Yes [id number] 25mg Take 1 K elsey Tartrate 25 8-28 tablet (25 Se ybold MG oral 00:00: mg total) - Tablet 00 by mouth 2 Externa times l daily Atorvastati 2021-0 Yes [id number] 40mg Take 1 Kateryna n Calcium 8-28 tablet (40 Seyb old 40 MG oral 00:00: mg total) - Tablet 00 by mouth Externa daily l Metformin 2021-0 Yes [id number] 1000mg Take 1 Kateryna HCl 1000 MG 8-28 tablet Seybol d oral Tablet 00:00: (1,000 mg - 00 total) by Externa mouth in l the morning and 1 tablet (1,000 mg total) in the evening. Take with meals. Metoprolol 2021-0 Yes [id number] 25mg Take 1 K elsey Tartrate 25 8-28 tablet (25 Se ybold MG oral 00:00: mg total) - Tablet 00 by mouth 2 Externa times l daily Atorvastati 2021-0 Yes [id number] 40mg Take 1 Kateryna n Calcium 8-28 tablet (40 Seyb old 40 MG oral 00:00: mg total) - Tablet 00 by mouth Externa daily l Metformin 2021-0 Yes [id number] 1000mg Take 1 Kateryna HCl 1000 MG 8-28 tablet Seybol d oral Tablet 00:00: (1,000 mg - 00 total) by Externa mouth in l the morning and 1 tablet (1,000 mg total) in the evening. Take with meals. Metoprolol 2021-0 Yes [id number] 25mg Take 1 K elsey Tartrate 25 8-28 tablet (25 Se ybold MG oral 00:00: mg total) - Tablet 00 by mouth 2 Externa times l daily Atorvastati 2-0 Yes [id number] 40mg Take 1 Kateryna n Calcium 8-28 tablet (40 Seyb old 40 MG oral 00:00: mg total) - Tablet 00 by mouth Externa daily l Metformin 2021-0 Yes [id number] 1000mg Take 1 Kateryna HCl 1000 MG 8-28 tablet Seybol d oral Tablet 00:00: (1,000 mg - 00 total) by Externa mouth in l the morning and 1 tablet (1,000 mg total) in the evening. Take with meals. Metoprolol Yes [id number] 25mg Take 1 K elsey Tartrate 25 8-28 tablet (25 Se ybold MG oral 00:00: mg total) - Tablet 00 by mouth 2 Externa times l daily Atorvastati 0 Yes [id number] 40mg Take 1 Kateryna n Calcium 8-28 tablet (40 Seyb old 40 MG oral 00:00: mg total) - Tablet 00 by mouth Externa daily l Metformin Yes [id number] 1000mg Take 1 Kateryna HCl 1000 MG 8-28 tablet Seybol d oral Tablet 00:00: (1,000 mg - 00 total) by Externa mouth in l the morning and 1 tablet (1,000 mg total) in the evening. Take with meals. Metoprolol Yes [id number] 25mg Take 1 K elsey Tartrate 25 8-28 tablet (25 Se ybold MG oral 00:00: mg total) - Tablet 00 by mouth 2 Externa times l daily Atorvastati Yes [id number] 40mg Take 1 Kateryna n Calcium 8-28 tablet (40 Seyb old 40 MG oral 00:00: mg total) - Tablet 00 by mouth Externa daily l Metformin Yes [id number] 1000mg Take 1 Kateryna HCl 1000 MG 8-28 tablet Seybol d oral Tablet 00:00: (1,000 mg - 00 total) by Externa mouth in l the morning and 1 tablet (1,000 mg total) in the evening. Take with meals. Atorvastati Yes [id number] 40mg Take 1 Kateryna n Calcium 8-28 [...] not 00 Externa apply SWAB l Applicators 2022- No Use swab K elsey (Q-Tips/Sin 07-04 to clean Sey bold gle-Tip) 00:00: 00:00 site - does not 00 :00 Externa apply SWAB l OrthoVisc OrthoVisc 0 No 15mg Com 07-02 Spirit 00:00: - [facility] OrthoVisc OrthoVisc 0 No 15mg Com 06-26 [facility] 00:00: - [facility] Duloxetine Yes 120mg Take 120 Ke lsey [...] - Particles 00 daily Externa l Eszopiclone 2021-0 Yes TAKE 1 Keisha ey 2 MG [...] :00 Bupivicaine Bupivicaine 0 No 2.5mg [place] 4-19 [facility] 00:00: - [facility] Kenalog Kenalog 0 No 40mg Common (Triamcinol (Triamcinol 4-19 S pirit one) one) 00:00: - [facility] Trazodone 0 Yes 1{tbl} QD Take 1 [...] Trazodone 2022-0 Yes 1{tbl} QD Take 1 Kiesha ey HCl 50 MG 4-18 tablet by [...] 00 daily as Externa needed l Alprazolam 0 Yes .5mg QD Take 1 Kelse y 0.5 MG oral 4-04 tablet Seybol d Tablet 00:00: (0.5 mg - 00 total) by Externa mouth l daily as needed Alprazolam 0 Yes .5mg QD Take 0.5 Dre sey 0.5 MG oral 4-04 mg by Seybold Tablet 00:00: mouth - 00 daily as Externa needed l Atorvastati Atorvastati 0 No 1{table QD Atorvastat n Calcium n Calcium 3-23 t} in Calcium 40 MG 40 MG 00:00: 40 MG 00 Nitrofurant 0 Yes [id number] 100mg Take 1 Kateryna oin Monohyd 1-20 capsule Seybo ld Macro 100 00:00: (100 mg - MG oral 00 total) by Externa Capsule mouth 2 l times daily Nitrofurant 2021-0 Yes [id number] 100mg Take 1 Kateryna oin Monohyd 1-20 capsule Seybo ld Macro 100 00:00: (100 mg - MG oral 00 total) by Externa Capsule mouth 2 l times daily Nitrofurant 0 Yes [id number] 100mg Take 1 Kateryna oin Monohyd 1-20 capsule Seybo ld Macro 100 00:00: (100 mg - MG oral 00 total) by Externa Capsule mouth 2 l times daily Nitrofurant 2021-0 3- No [id number] 100mg Take 1 Kateryna oin Monohyd 1-20 01-18 capsule Seyb old Macro 100 00:00: 00:00 (100 mg - MG oral 00 :00 total) by Externa Capsule mouth 2 l times daily Aspirin 2021-0 Yes 1{tbl} Take 1 Kateryna (Aspir-Low) 1-17 tablet by Sey bold 81 MG oral 11:06: mouth Tablet 52 Delayed Response Bupropion 2021-0 Yes every 12 Keisha ey HCL XL 150 1-17 hours Seybold MG OR TB24 11:06: 52 Tizanidine 2021-0 Yes 1{tbl} Take 1 Dre sey HCl 4 MG 1-17 tablet by Seybol d oral Tablet 11:06: mouth at 52 bedtime Metformin 2022-0 Yes 1000mg Take 1,000 Kateryna HCl 1000 MG 1-17 mg by Seybold oral Tablet 11:06: mouth 2 52 times daily (with meals) Gabapentin 0 Yes 600mg Take 600 Ke lsey 600 MG oral 1-17 mg by Seybold Tablet 11:06: mouth 3 52 times daily Albuterol 0 Yes [id number] 2{puff} Q.25D Inhale 2 Kateryna HFA 108 (90 1-17 puffs into Se [employer]) 00:00: the lungs - MCG/ACT IN 00 every 6 [employer] a AERS hours as l needed for wheezing Albuterol Yes [id number] 2{puff} Q.25D Inhale 2 Kateryna HFA 108 (90 1-17 puffs into Se [employer]) 00:00: the lungs - MCG/ACT IN 00 every 6 [employer] AERS hours as l needed for wheezing Albuterol Yes [id number] 2{puff} Q.25D Inhale 2 Kateryna HFA 108 (90 1-17 puffs into Se [employer]) 00:00: the lungs - MCG/ACT IN 00 every 6 [employer] AERS hours as l needed for wheezing Albuterol 0 Yes [id number] 2{puff} Q.25D Inhale 2 Kateryna HFA 108 (90 1-17 puffs into [employer]) 00:00: the lungs - MCG/ACT IN 00 every 6 [employer] AERS hours as l needed for wheezing Albuterol 0 Yes [id number] 2{puff} Q.25D Inhale 2 Kateryna HFA 108 (90 1-17 puffs into [employer]) 00:00: the lungs - MCG/ACT IN 00 every 6 [employer] AERS hours as l needed for wheezing Albuterol 0 Yes [id number] 2{puff} Q6H Inhale 2 Kateryna HFA 108 (90 1-17 puffs into [employer]) 00:00: the lungs MCG/ACT IN 00 every 6 AERS hours as needed for wheezing Albuterol 0 Yes [id number] 2{puff} Q.25D Inhale 2 Kateryna HFA 108 (90 1-17 puffs into [employer]) 00:00: the lungs - MCG/ACT IN 00 every 6 [employer] AERS hours as l needed for [...] 50mg Take 50 mg Kateryna Tartrate 50 2-15 -17 by mouth 2 S eybold MG oral 00:00: 00:00 times Tablet 00 :00 daily FOR 90 DAYS Doxepin HCl 2020-11 Yes Kateryna 50 MG oral 1-27 Seybold Capsule 00:00: - 00 Externa l Doxepin HCl 2020-11 Yes Kateryna 50 MG oral 12-06 Seybold Capsule 00:00: - 00 Externa l Doxepin HCl 2020-11 Yes Kateryna 50 MG oral - Seybold Capsule 00:00: 00 Doxepin HCl 2020-11 Yes Kateryna 50 MG oral 12-06 Seybold Capsule 00:00: - 00 Externa l Doxepin HCl 2020-11- No Kelse y 50 MG oral 12-06 Seybold Capsule 00:00: 00:00 - 00 :00 Externa l Zolpidem 0 Yes 12.5mg Take 12.5 Ke lsey Tartrate 4-12 mg by Seybold 12.5 MG 00:00: mouth at - oral Tab CR 00 bedtime Exter na l Zolpidem 0 Yes 12.5mg Take 12.5 Ke lsey Tartrate 4-12 mg by Seybold 12.5 MG 00:00: mouth at - oral Tab CR 00 bedtime Exter na l Zolpidem 0 Yes 12.5mg Take 12.5 Ke lsey Tartrate 4-12 mg by Seybold 12.5 MG 00:00: mouth at oral Tab CR 00 bedtime Zolpidem 0 Yes 12.5mg Take 12.5 Ke lsey Tartrate 4-12 mg by Seybold 12.5 MG 00:00: mouth at - oral Tab CR 00 bedtime Exter na l Zolpidem 2020-0 3- No 12.5mg Take 12.5 K elsey Tartrate 4-12 01-18 mg by Seybold 12.5 MG 00:00: 00:00 mouth at - oral Tab CR 00 :00 bedtime Exter na l Lidocaine 5 Yes APPLY Kelse y % apply 4-02 EXTERNALLY Seybol d externally 00:00: TO LOWER - Ointment 00 BACK PAIN [employer] a SENSITIVE l AREA TWICE A DAY NEEDED Lidocaine 5 2020- Yes APPLY Kelse y % apply 4-02 EXTERNALLY Seybol d externally 00:00: TO LOWER - Ointment 00 BACK PAIN [employer] a SENSITIVE l AREA TWICE A DAY NEEDED Lidocaine 5 2020- Yes APPLY Kelse y % apply 4-02 EXTERNALLY Seybol d externally 00:00: TO LOWER Ointment 00 BACK PAIN SENSITIVE AREA TWICE A DAY NEEDED Lidocaine 5 0 Yes APPLY Kelse y % apply 4-02 EXTERNALLY Seybol d externally 00:00: TO LOWER - Ointment 00 BACK PAIN [employer] a SENSITIVE l AREA TWICE A DAY NEEDED Lidocaine 5 2020-0 2023- No APPLY Keisha ey % apply 4-02 18 EXTERNALLY Seybo ld externally 00:00: 00:00 TO LOWER - Ointment 00 :00 BACK PAIN [employer] SENSITIVE l AREA TWICE A DAY NEEDED HYDROcodone Yes TAKE 1 Keisha ey -Acetaminop 3-24 TABLET BY Rosalba siddiqi ([employer]) 00:00: MOUTH - 5-325 MG 00 TWICE Externa oral Tablet DAILY l NEEDED FOR 15 DAYS HYDROcodone Yes TAKE 1 Keisha ey -Acetaminop 3-24 TABLET BY Rosalba siddiqi ([employer]) 00:00: MOUTH - 5-325 MG 00 TWICE Externa oral Tablet DAILY l NEEDED FOR 15 DAYS HYDROcodone Yes TAKE 1 Keisha ey -Acetaminop 3-24 TABLET BY [employer] ([employer]) 00:00: MOUTH 5-325 MG 00 TWICE oral Tablet DAILY NEEDED FOR 15 DAYS HYDROcodone Yes TAKE 1 Keisha ey -Acetaminop 3-24 TABLET BY [employer] ([employer]) 00:00: MOUTH - 5-325 MG 00 TWICE Externa oral Tablet DAILY l NEEDED FOR 15 DAYS HYDROcodone 2020-0 3- No TAKE 1 Dre sey -Acetaminop 3-24 -18 TABLET BY ediedayanna siddiqi ([employer]) 00:00: 00:00 MOUTH - 5-325 MG 00 [...] rnal Free Influenza Virus 2022-09-04 Completed Kateryna ybold Vaccine, Quad, Egg 00:00:00 - Exte rnal Free Influenza Virus 2022-09-04 Completed Kateryna ybold Vaccine, Quad, Egg 00:00:00 - Exte rnal Free Influenza Virus 2022-09-04 Completed Kateryna ybold Vaccine, Quad, Egg 00:00:00 - Exte rnal Free Influenza Virus 2022-09-04 Completed Kateryna ybold Vaccine, Quad, Egg 00:00:00 - Exte rnal Free Influenza Virus 2022-09-04 Completed Kateryna ybold Vaccine, Quad, Egg 00:00:00 - Exte rnal Free Influenza Virus 2022-09-04 Completed Kateryna ybold Vaccine, Quad, Egg 00:00:00 - Exte rnal Free Influenza Virus 2022-09-04 Completed Kateryna ybold Vaccine, Quad, Egg 00:00:00 - Exte [...] Protein, Pf Covid-19 Vaccine 2021-10-19 Completed Kateryna caibold Moderna (Spikevax), 00:00:00 - Ext ernal Mrna-lnp, [...] ternal Formulation Influenza Virus 2021-07-20 Completed Kateryna Jenkins ybold Vaccine, Unspecified 00:00:00 - Ex ternal Formulation Influenza Virus 2021-07-20 Completed Kateryna Se ybold Vaccine, Unspecified 00:00:00 - Ex ternal Formulation Influenza Virus 2021-07-20 Completed Kateryna Se ybold Vaccine, Unspecified 00:00:00 - Ex ternal Formulation Moderna COVID-19 Moderna COVID-19 2021-03-09 Completed [facility] - Vaccine Vaccine 11:49:00 [facility] Covid-19 Vaccine 2021-03-09 Completed Kateryna fair Moderna (Spikevax), 00:00:00 - Ext ernal Mrna-lnp, Tito Protein, Pf Covid-19 Vaccine 2021-03-09 Completed Kateryna interianold Moderna (Spikevax), 00:00:00 - [...] Moderna COVID-19 Moderna COVID-19 2021-02-07 Completed [facility] - Vaccine Vaccine 11:48:00 [facility] Covid-19 Vaccine 2021-02-07 Completed Kateryna fair Moderna [...] Pf Covid-19 Vaccine 2021-02-07 Completed Kateryna Birch eyloki Moderna (Spikevax), 00:00:00 - Ext ernal Mrna-lnp, [...] Protein, Pf Covid-19 Vaccine 2021-02-07 Completed Kateryna fiar (Moderna), Mrna-lnp, 00:00:00 Tito Protein, Pf, 100 [...] Afluria 2021-01-08 Completed [facility] - 11:48:00 [facility] Influenza, Seasonal, 2021-01-08 Completed Keisha ey [...] Respiratory rate 2023-02-25 18:28:00 15 /min Keisha ey Seybold - External Body height 2023-02-25 18:28:00 162.6 cm Kateryna Birch eybold - External Body weight 2023-02-25 18:28:00 103.874 kg Kateryna Birch eybold - External BMI 2023-02-25 18:28:00 39.31 kg/m2 Kateryna S eybold - External Oxygen saturation in 2023-02-25 [...] External BMI 2022-12-19 15:30:00 36.05 kg/m2 Kateryna S eybold - External Systolic blood 2022-11-27 19:13:00 [...] External BMI 2022-11-27 19:13:00 37.76 kg/m2 Kateryna S eybold - External Oxygen saturation in 2022-11-27 19:13:00 99 /min Kateryna Seybold - Arterial blood by [...] Body height 2022-09-25 14:59:00 162.6 cm Kateryna S eybold - External Body weight 2022-09-25 14:59:00 98.884 kg Kateryna S eybold - External BMI 2022-09-25 14:59:00 37.42 kg/m2 Kateryna S eybold - External Systolic blood 2022-09-09 14:27:00 102 mm[Hg] Kateryna Seybold - pressure External Diastolic blood 2022-09-09 14:27:00 59 mm[Hg] Drese y Seybold - pressure External Heart rate [...] saturation in 2022-09-09 14:27:00 99 /min Kateryna Seybold - Arterial blood by [...] Body weight 2021-11-26 16:51:00 115.667 kg Kateryna cailoki BMI 2021-11-26 16:51:00 43.77 kg/m2 Kateryna fair Procedures Procedure Date / Time Performed Performing Clinician [facility] 2022-12-19 16:47:51 Gus Neri ld - External Encounters Start End Encounter Admission Attending Care Care Encounter Source Date/Time Date/Time Type Type Clinicians Facility Department ID 2023-03-24 Outpatient Pranav, STLMLC STLMLC [id number] Common 15:49:01 Darius [id number] [facility] 2023-03-11 Outpatient Pranav, STPRATIKLC STLMLC [id number] Common 09:16:01 Darius [id number] [facility] 2022-08-15 Outpatient Pranav, STPRATIKLC STLMLC [id number] Common 09:14:03 Darius [id number] [facility] 2022-06-18 Outpatient Pranav, STLMLC STLMLC [id number] Common 08:34:02 Darius [id number] [facility] 2022-03-12 Outpatient Wing, STLMLC STLMLC [id number] Common 16:48:01 Avnee [facility] 2022-02-27 Outpatient Wing, STLMLC STLMLC [id number] Common 09:15:02 Avnee [facility] 2022-02-26 Outpatient Wing, STLMLC STLMLC [id number] Common 13:41:03 Avnee [facility] 2022-02-12 Outpatient Wing, STLMLC STLMLC [id number] Common 14:26:01 Avnee [facility] 2022-02-08 Outpatient Wing, STLMLC STLMLC [id number] Common 14:54:01 Avnee [facility] 2022-01-30 Outpatient Wing, STLMLC STLMLC [id number] Common 07:54:01 Avnee [facility] 2022-01-28 [facility] [id number] Common 10:38:01 Avnee [facility] 2022-01-21 Outpatient Wing, STLMLC STLC [id number] Common 15:25:01 Avnee [facility] 2022-01-15 Outpatient Wing, STLC STLC [id number] Common 09:32:04 Avnee [facility] 2022-01-14 Outpatient Wing, STLMLC STLC [id number] Common 10:53:02 Avnee [facility] 2022-01-11 Outpatient Wing, STLC STLC [id number] Common 15:37:01 Avnee [facility] 2021-12-05 Out[facility] Wign, [facility] [id number] Common 14:28:58 Avnee [facility] 2021-12-05 Outpatient Wing, ST[facility] [id number] Common 14:24:55 Avnee [id number] [facility] 2021-12-05 Out[facility] Wing, ST[facility] [id number] Common 14:21:24 Avnee [id number] [facility] 2023-07-24 2023-07-24 Outpatient KATERYNA ASTORGA [id number] Kateryna 15:00:00 15:00:00 ABHAY Seybo ld 2023-07-10 2023-07-10 Outpatient KATERYNA JEFFERS [id number] Kateryna 13:15:00 13:15:00 ATASU Seybol d 2023-06-27 2023-06-27 Outpatient KATERYNA FOSTER [id number] Kateryna 13:45:00 13:45:00 GEORGINA Seybol d 2023-05-22 2023-05-[address] [facility] [id number] Dave 10:41:13 10:41:13 0713 Shell Ibanez 2023-05-212023-05-21 Outpatient PREZAS, KATERYNA MITCHELL [id number] Kateryna 00:00:00 00:00:00 GEORGINA Seybol d 2023-05-21 2023-05-21 Outpatient PREZAS, KATERYNA MITCHELL [id number] Kateryna 00:00:00 00:00:00 GEORGINA Seybol d 2023-05-20 2023-05-20 Outpatient PREZAS, KATERYNA MITCHELL [id number] Kateryna 00:00:00 00:00:00 GEORGINA Seybol d 2023-05-01 2023-05-01 Outpatient PREZAS, KATERYNA MITCHELL [id number] Kateryna 00:00:00 00:00:00 GEORGINA Seybol d 2023-04-30 2023-04-30 Outpatient LAB90 KATERYNA MITCHELL [id number] Kateryna 15:35:00 15:35:00 Seybol d 2023-04-30 2023-04-30 Outpatient ARTUR, RAMY MITCHELL [id number] Kateryna 14:30:00 14:30:00 Seybol d 2023-04-29 2023-04-29 Outpatient PREZAS, KATERYNA MITCHELL [id number] Kateryna 00:00:00 00:00:00 GEORGINA Seybol d 2023-04-21 2023-04-21 Outpatient NERI, GUS MITCHELL [id number] Kateryna 00:00:00 00:00:00 Seybol d 2023-04-16 2023-04-16 Outpatient NERI, GUS MITCHELL [id number] Kateryna 10:45:00 10:45:00 Seybol d 2023-04-09 2023-04-09 Outpatient NERI, GUS MITCHELL [id number] Kateryna 00:00:00 00:00:00 Seybol d 2023-04-03 2023-04-03 Outpatient PREZAS, KATERYNA MITCHELL [id number] Kateryna 00:00:00 00:00:00 GEORGINA Seybol d 2023-04-01 2023-04-01 Outpatient KATERYNA MITCHELL [id number] Kateryna 00:00:00 00:00:00 Seybol d 2023-04-012023-04-01 Outpatient KATERYNA GALLO [id number] Kateryna 00:00:00 00:00:00 DARIUS Seybol d 2023-03-28 2023-03-28 Outpatient KATERYNA MITCHELL [id number] Kateryna 00:00:00 00:00:00 Seybol d 2023-03-28 2023-03-28 Outpatient PREKATERYNA LAUGHLIN [id number] Kateryna 00:00:00 00:00:00 GEORGINA Seybol d 2023-03-26 2023-03-26 Outpatient ARTURRAMY KATERYNA MITCHELL [id number] Kateryna 11:30:00 11:30:00 Seybol d 2023-03-26 2023-03-26 Outpatient LAB90 KATERYNA MITCHELL [id number] Kateryna 11:20:00 11:20:00 Seybol d 2023-03-26 2023-03-26 Outpatient KATERYNA FOSTER [id number] Kateryna 00:00:00 00:00:00 GEORGINA Seybol d 2023-03-24 2023-03-24 Outpatient PREKATERYNA LAUGHLIN [id number] Kateryna 00:00:00 00:00:00 GEORGINA Seybol d 2023-03-12 2023-03-12 Outpatient KATERYNA FOSTER [id number] Kateryna 00:00:00 00:00:00 GEORGINA Seybol d 2023-03-07 2023-03-07 Outpatient GUS NERI [id number] Kateryna 13:15:00 13:15:00 Seybol d 2023-03-07 2023-03-07 Outpatient KATERYNA CARBAJAL [id number] Kateryna 00:00:00 00:00:00 NEO Seybol d 2023-03-03 2023-03-03 Outpatient KATERYNA FOSTER [id number] Kateryna 00:00:00 00:00:00 GEORGINA Seybol d 2023-03-03 2023-03-03 Outpatient KATERYNA FOSTER [id number] Kateryna 00:00:00 00:00:00 GEORGINA Seybol d 2023-03-03 2023-03-03 Outpatient KATERYNA FOSTER [id number] Kateryna 00:00:00 00:00:00 GEORGINA Seybol d 2023-02-26 2023-02-26 Outpatient KATERYNA FOSTER [id number] Kateryna 00:00:00 00:00:00 GEORGINA Seybol d 2023-02-25 2023-02-25 Outpatient LAB90 KATERYNA MITCHELL [id number] Kateryna 14:00:00 14:00:00 Seybol d 2023-02-25 2023-02-25 Outpatient KATERYNA FOSTER [id number] Kateryna 13:30:00 13:30:00 GEORGINA Seybol d 2023-02-25 2023-02-25 Outpatient KATERYNA MITCHELL [id number] Kateryna 00:00:00 00:00:00 Seybol d 2023-02-25 2023-02-25 Outpatient KATERYNA GALLO [id number] Kateryna 00:00:00 00:00:00 DARIUS Seybol d 2023-01-24 2023-01-24 Outpatient KATERYNA CHOI [id number] Kateryna 00:00:00 00:00:00 DARREL Seybol d 2023-01-21 2023-01-21 Outpatient YESSY MITCHELL [id number] Kateryna 00:00:00 00:00:00 MD QUE Seybol d 2023-01-20 2023-01-20 Outpatient KATERYNA MITCHELL [id number] Kateryna 07:30:00 07:30:00 Seybol d 2023-01-15 2023-01-15 Outpatient GUS NERI [id number] Kateryna 15:30:00 15:30:00 Seybol d 2023-01-13 2023-01-13 Outpatient KATERYNA MITCHELL [id number] Kateryna 11:15:00 11:15:00 Seybol d 2023-01-13 2023-01-13 Outpatient KATERYNA MITCHELL [id number] Kateryna 00:00:00 00:00:00 Seybol d 2023-01-13 2023-01-13 Outpatient KATERYNA MITCHELL [id number] Kateryna 00:00:00 00:00:00 Seybol d 2023-01-10 2023-01-10 Outpatient KATERYNA GALLO [id number] Kateryna 00:00:00 00:00:00 DARIUS Seybol d 2023-01-09 2023-01-09 Outpatient VELIA VALENZUELA [id number] Kateryna 11:30:00 11:30:00 Seybol d 2023-01-09 2023-01-09 Outpatient YESSY MITCHELL [id number] Kateryna 00:00:00 00:00:00 MD QUE Seybol d 2023-01-03 2023-01-03 Outpatient KATERYNA FOSTER [id number] Kateryna 00:00:00 00:00:00 GEORGINA Seybol d 2023-01-02 2023-01-02 Outpatient LAB90 KATERYNA MITCHELL [id number] Kateryna 08:45:00 08:45:00 Seybol d 2023-01-02 2023-01-02 Outpatient KATERYNA FOSTER [id number] Kateryna 00:00:00 00:00:00 GEORGINA Seybol d 2022-12-20 2022-12-20 Outpatient KATERYNA MITCHELL [id number] Kateryna 00:00:00 00:00:00 Seybol d 2022-12-19 2022-12-19 Outpatient KATERYNA CHOI [id number] Kateryna 14:00:00 14:00:00 DARREL Seybol d 2022-12-19 2022-12-19 Outpatient KATERYNA MITCHELL [id number] Kateryna 10:40:00 10:40:00 Seybol d 2022-12-19 2022-12-19 Outpatient CHATA NERIU KATERYNA MITCHELL [id number] Kateryna 08:00:00 08:00:00 Seybol d 2022-12-19 2022-12-19 Outpatient KATERYNA MITCHELL [id number] Kateryna 00:00:00 00:00:00 Seybol d 2022-12-12 2022-12-12 Outpatient KATERYNA CHOI [id number] Kateryna 09:30:00 09:30:00 DARREL Seybol d 2022-12-09 2022-12-09 Outpatient PREZAS, KATERYNA MITCHELL [id number] Kateryna 00:00:00 00:00:00 GEORGINA Seybol d 2022-12-05 2022-12-05 Outpatient PREZAS, KATERYNA MITCHELL [id number] Kateryna 00:00:00 00:00:00 GEORGINA Seybol d 2022-11-27 2022-11-27 Outpatient PREZAS, KATERYNA MITCHELL [id number] Kateryna 13:30:00 13:30:00 GEORGINA Seybol d 2022-11-26 2022-11-26 Outpatient PREZAS, KATERYNA MITCHELL [id number] Kateryna 00:00:00 00:00:00 GEORGINA Seybol d 2022-11-19 2022-11-19 Outpatient LAB90 KATERYNA MITCHELL [id number] Kateryna 10:40:00 10:40:00 Seybol d 2022-11-18 2022-11-18 Outpatient KATERYNA GALLO [id number] Kateryna 00:00:00 00:00:00 DARIUS Seybol d 2022-11-14 2022-11-14 Outpatient PREZAS, KATERYNA MITCHELL [id number] Kateryna 11:30:00 11:30:00 GEORGINA Seybol d 2022-11-14 2022-11-14 Outpatient PREZAS, KATERYNA MITCHELL [id number] Kateryna 00:00:00 00:00:00 GEORGINA Seybol d 2022-11-13 2022-11-13 Outpatient PREZAS, KATERYNA MITCHELL [id number] Kateryna 00:00:00 00:00:00 GEORGINA Seybol d 2022-11-06 2022-11-06 Outpatient OU, KATERYNA MITCHELL [id number] Kateryna 09:15:00 09:15:00 CHRISTIANO Seyb old 2022-10-29 2022-10-29 Outpatient KATERYNA MITCHELL [id number] Kateryna 08:30:00 08:30:00 Seybol d 2022-10-25 2022-10-25 Outpatient KATERYNA GALLO [id number] Kateryna 00:00:00 00:00:00 DARIUS Seybol d 2022-09-25 2022-09-25 Outpatient KATERYNA MITCHELL [id number] Kateryna 10:05:00 10:05:00 Seybol d 2022-09-25 2022-09-25 Outpatient KATERYNA MITCHELL [id number] Kateryna 10:00:00 10:00:00 Seybol d 2022-09-25 2022-09-25 Outpatient KATERYNA MITCHELL [id number] Kateryna 09:55:00 09:55:00 Seybol d 2022-09-25 2022-09-25 Outpatient OU, KATERYNA MITCHELL [id number] Kateryna 09:00:00 09:00:00 CHRISTIANO Seyb old 2022-09-10 2022-09-10 Outpatient OU, KATERYNA MITCHELL [id number] Kateryna 10:00:00 10:00:00 CHRISTIANO Seyb old 2022-09-09 2022-09-09 Outpatient LAB90 KATERYNA MITCHELL [id number] Kateryna 10:15:00 10:15:00 Seybol d 2022-09-09 2022-09-09 Outpatient KATERYNA GALLO [id number] Kateryna 09:30:00 09:30:00 DARIUS Seybol d 2022-09-06 2022-09-06 Outpatient KATERYNA GALLO [id number] Kateryna 16:00:00 16:00:00 DARIUS Seybol d 2022-09-02 2022-09-02 Outpatient KATERYNA ROCK [id number] Kateryna 13:45:00 13:45:00 LATHA Seybol d 2022-08-15 2022-08-15 Outpatient KATERYNA GALLO [id number] Kateryna 00:00:00 00:00:00 DAIRUS Seybol d 2022-07-10 2022-07-10 Outpatient KATERYNA GALLO [id number] Kateryna 00:00:00 00:00:00 DARIUS Seybol d 2022-07-09 2022-07-09 ambulatory STLMLC STLMLC [id number] Common 00:00:00 00:00:00 [facility] 2022-07-04 2022-07-04 ambulatory STLMLC STLMLC [id number] Common 00:00:00 00:00:00 [facility] 2022-07-03 2022-07-03 Outpatient KATERYNA GALLO [id number] Kateryna 00:00:00 00:00:00 DARIUS Seybol d 2022-07-02 2022-07-02 ambulatory STLMLC STLMLC [id number] Common 00:00:00 00:00:00 [facility] 2022-06-26 2022-06-26 Outpatient KATERYNA GALLO [id number] Kateryna 00:00:00 00:00:00 DARIUS Seybol d 2022-06-26 2022-06-26 ambulatory STLMLC STLMLC [id number] Common 00:00:00 00:00:00 [facility] 2022-06-12 2022-06-12 Outpatient KATERYNA GALLO [id number] Kateryna 00:00:00 00:00:00 DARIUS Seybol d 2022-06-07 2022-06-07 Outpatient LAB90 KATERYNA MITCHELL [id number] Kateryna 16:10:00 16:10:00 Seybol d 2022-06-07 2022-06-07 Office Ramy Gallo [id number] Kateryna 15:30:00 15:45:00 Visit Darius Bridger [id number] Se ybold Somogyi [id number] 2022-05-15 2022-05-15 Outpatient KATERYNA GALLO [id number] Kateryna 00:00:00 00:00:00 DARIUS Seybol d 2022-05-10 2022-05-10 Office Ramy Gallo [id number] Kateryna 15:30:00 16:00:00 Visit Dariuspaulette Sparks [id number] Se ybold Somogyi [id number] 2022-05-08 2022-05-08 ambulatory STLMLC STLMLC [id number] Common 00:00:00 00:00:00 [facility] 2022-04-16 2022-04-16 ambulatory STLMLC STLMLC [id number] Common 00:00:00 00:00:00 [facility] 2022-04-15 2022-04-15 ambulatory STLMLC STLMLC [id number] Common 00:00:00 00:00:00 [facility] 2022-03-28 2022-03-28 ambulatory STLMLC STLMLC [id number] Common 00:00:00 00:00:00 [facility] 2022-03-21 2022-03-21 ambulatory STLMLC STLMLC [id number] Common 00:00:00 00:00:00 [facility] 2022-03-13 2022-03-13 ambulatory STLMLC STLMLC [id number] Common 00:00:00 00:00:00 [facility] 2022-03-12 2022-03-12 ambulatory STLMLC STLMLC [id number] Common 00:00:00 00:00:00 [facility] 2022-02-26 2022-02-26 ambulatory STLMLC STLMLC [id number] Common 00:00:00 00:00:00 [facility] 2022-02-26 2022-02-26 ambulatory STLMLC STLMLC [id number] Common 00:00:00 00:00:00 [facility] 2022-02-12 2022-02-12 ambulatory STLMLC STLMLC [id number] Common 00:00:00 00:00:00 [facility] 2022-02-05 2022-02-05 ambulatory STLMLC STLMLC [id number] Common 00:00:00 00:00:00 [facility] 2022-01-30 2022-01-30 ambulatory STLMLC STLMLC [id number] Common 00:00:00 00:00:00 [facility] 2022-01-30 2022-01-30 ambulatory STLMLC STLMLC [id number] Common 00:00:00 00:00:00 [facility] 2022-01-30 2022-01-30 ambulatory STLMLC STLMLC [id number] Common 00:00:00 00:00:00 [facility] 2022-01-21 2022-01-21 ambulatory STLMLC STLMLC [id number] Common 00:00:00 00:00:00 [facility] 2022-01-21 2022-01-21 ambulatory STLMLC STLMLC [id number] Common 00:00:00 00:00:00 [facility] 2022-01-21 2022-01-21 ambulatory STLMLC STLMLC [id number] Common 00:00:00 00:00:00 [facility] 2022-01-18 2022-01-18 ambulatory STLMLC STLMLC [id number] Common 00:00:00 00:00:00 [facility] 2022-01-15 2022-01-15 ambulatory STLMLC STLMLC [id number] Common 00:00:00 00:00:00 [facility] 2022-01-08 2022-01-08 Outpatient KATERYNA GALLO [id number] Kateryna 00:00:00 00:00:00 DARIUS Seybol d 2021-12-27 2021-12-27 Outpatient KATERYNA GALLO [id number] [place] 00:00:00 00:00:00 DARIUS Seybol d 2021-12-25 2021-12-25 Outpatient KATERYNA GALLO [id number] [place] 00:00:00 00:00:00 DARIUS Seybol d 2021-12-09 2021-12-09 Outpatient KATERYNA MITCHELL [id number] [place] 00:00:00 00:00:00 Seybol d 2021-11-29 2021-11-29 Outpatient KATERYNA GALLO [id number] [place] 00:00:00 00:00:00 DARIUS Seybol d 2021-11-27 2021-11-27 Outpatient LAB90 KATERYNA MITCHELL [id number] [place] 08:15:00 08:15:00 Seybol d 2021-11-27 2021-11-27 Outpatient KATERYNA GALLO [id number] [place] 00:00:00 00:00:00 DARIUS zepeda 2021-11-27 2021-11-27 Outpatient KATERYNA MITCHELL [id number] [place] 00:00:00 00:00:00 Seybol d 2021-11-26 2021-11-26 Office PranavRamy [id number] [place] 10:45:00 11:15:00 Visit Darius Bridger 350.1.13.13 oliverio Lowery 1.2.7.2.686 [id number] 2021-11-23 2021-11-23 Outpatient KATERYNA FRIEDMAN [id number] [place] 00:00:00 00:00:00 YOHAN horn 2021-11-05 2021-11-05 ambulatory STLMLC STLMLC [id number] Common 00:00:00 00:00:00 [facility] 2021-11-01 2021-11-01 ambulatory STLMLC STLMLC [id number] Common 00:00:00 00:00:00 [facility] 2021-10-29 2021-10-29 ambulatory STLMLC STLMLC [id number] Common 00:00:00 00:00:00 [facility] 2021-10-24 2021-10-24 ambulatory STLMLC STLMLC [id number] Common 00:00:00 00:00:00 [facility] 2021-10-23 2021-10-23 (TEL) STLMLC STLMLC [id number] Co mmon 00:00:00 00:00:00 [facility] 2021-10-16 2021-10-16 ambulatory STLMLC STLMLC [id number] Common 00:00:00 00:00:00 [facility] 2021-04-17 2021-04-17 Emergency MATTHEW MEDELLIN [facility] [address] [facility] 12:26:00 20:09:00 MICAH 2021-02-28 2021-02-28 Emergency WHITNEY Elkins [id number] [id number] 19:00:00 20:05:00 Raul Capps 350.1.13.10 [place] 4.2.7.2.686 [place] [id number] 2021-02-28 2021-02-28 Emergency X [facility] [id number] [facility] 18:54:00 18:54:00 ity [facility] 2020-11-12 2020-11-12 Emergency X JUSTIN, [facility] E[facility] [id number] [facility] 10:27:00 13:27:00 JERROD ity [facility] 2020-11-12 2020-11-12 Emergency X JUSTIN, [facility] ERT [id number] Univers 10:27:00 10:27:00 JERROD [facility] 2020-10-10 2020-10-10 Emergency E [place], MHBL MHBL 7500 MHBL 13:09:00 19:20:00 LATHA 2020-06-28 2020-06-28 Emergency Aliya [facility] 1.2.865.864 [id number] 14:56:00 17:04:00 Rafia Capps 350.1.13.10 [place] 4.2.7.2.686 [place] [id number] 2020-06-28 2020-06-28 [facility] [id number] Univers 14:56:00 14:56:00 RAFIA [facility] 2020-06-28 2020-06-28 Orders Doctor POE 1.2.840.114 [id number] 00:00:00 00:00:00 Only Unassigned, DESTINY 350.1.13.10 [place] [facility] 4.2.7.2.686 [id number] 2020-03-20 2020-03-20 [facility] 1.2.840.114 [id number] 18:31:57 20:18:00 Errol Capps 350.1.13.10 [place] 4.2.7.2.686 [place] [id number] 2020-03-20 2020-03-20 Emergency [facility] ERT [id number] Univers 18:31:57 18:31:57 ERROL oviedo [facility] Results Test Description Test Time Test Comments Results Result [facility] e Comments - XR FLUOROSCOPY 2019-01-14 Name: RACHAEL OQUENDO 0-60 MIN 10:27:00 DAVID Sharp : 1960 Age/S: 58 / M [address] [place] Unit #: [id number] Loc: [place] [address] Phys: Kevin Rollins MD Acct: [id number] Dis Date: Status: REG [facility] PHONE #: [phone] Exam Date: 01/14/2019 0910 FAX #: Reason: PORT A CATH PLACEMENT EXAMS: CPT: [id number] XR FLUOROSCOPY 0-60 MIN 04565 Fluoro Time: 8 SEC DAP (Gy m2): [...] PAGE 1 Signed Report Name: RACHAEL OQUENDO : 1960 Age/S: 58 / M [address] [place] Unit #: [id number] Loc: [place] [address] Phys: Kevin Rollins MD Acct: [id number] Dis Date: Status: REG [facility] PHONE #: [phone] Exam Date: 01/14/2019 0910 FAX #: Reason: PORT A CATH PLACEMENT EXAMS: CPT: [id number] XR FLUOROSCOPY 0-60 MIN 30871 Fluoro Time: 8 SEC DAP (Gy m2): Air Kerma (mGy): (Continued) Technologist: Sandy Lucero, RT(R)(CT); Mary Carbajal RT(R) Trntnb Date/Time: 01/14/2019 (1027) [id number] Orig Print D/T: S: 01/14/2019 (1030) PAGE 2 Signed Report GLUCOSE BEDSIDE TESTING 2019-01-14 10:17:00 Test Item Value Reference Range Interpretation Comme nts GLUCOSE BEDSIDE TESTING (test code = GLUBED) 140 mg/dL 70-110 H - XR CHEST 1 [id number] 10:04:00 Name: RACHAEL OQUENDO : 1960 Age/S: 58 / M [address] [place] Unit #: [id number]: [place] [address] Phys: Kevin Rollins MD Acct: [id number] Dis Date: Status: REG [facility] PHONE#: [phone] Exam Date: 01/14/2019954 FAX #: Reason: port placement EXAMS: CPT: [id number] XR CHEST 1 V 54847 Fluoro Time: DAP (Gy m2): Air Kerma [...] PAGE 1 Signed Report Name: RACHAEL OQUENDO : 1960 Age/S: 58 / M [address] [place] Unit #: [id number] Loc: [place] [address] Phys: Kevin Rollins MD Acct: [id number] Dis Date: Status: REG [facility] PHONE #: [phone] Exam Date: 01/14/2019 0921 FAX #: Reason: port placement EXAMS: CPT: [id number] XR CHEST 1 V 83533 Fluoro Time: DAP (Gy m2): Air Kerma (mGy): (Continued) Technologist: Rachael Izquierdo, RT(R)(CT); Mary Carbajal, RT(R) Trnscb Date/Time: 01/14/2019 (1004) [id number] Orig Print D/T: S: 01/14/2019 (1041) PAGE 2 Signed ReportGLUCOSE BEDSIDE [id number] 07:20:00 Test Item Value Reference Range Interpretation Comments GLUCOSE BEDSIDE TESTING (test code 137 mg/dL 70-110 H = GLUBED) [id number] 16:52:00 RUN DATE: 01/06/19 [facility] - LAB *LIVE* PAGE 1 RUN TIME: 2 Specimen Inquiry RUN USER: INTERFACE PATIENT: RACHAEL OQUENDO LOC: EllenJamar U #: [id number] AGE/SX: 58/M ROOM: [facility] RE12/31/18REG DR: Kevin Rollins MD : 64 BED: 1 DIS: 01/02/19 STATUS: DIS IN TLOC: SPEC #: [id number] RECD: 01/01/19 STATUS: MARCIA LEE #: [id number] ONELIA: 12/31/[address] [facility] [address]: Kevin Rollins MD ENTERED: 01/01/19 SP TYPE: SURG OTHR DR: Shamar Abreu ORDERED: SURG PATH LVL 6 COPIES TO: Shamar Abreu [address] [place] [address] [place] [address] [address] [facility] [address], [place] [address] HISTOLOGY: TISSUE ID BLK PCS CESAR LEV PROCEDURE DISPOSITION ____ ___ ___ ___ SIGMOID COLON A 1-15 1 PROCEDURES: SURG PATH LVL 6 (01/01/19) TISSUES: A. SIGMOID COLON - SIGMOID COLON AND ANASTOMATIC COLON RINGS CLINICAL HISTORY COLON RECTAL CANCER -C18.9 CPT CODES CPT CODE(S): 89639 , , , , , , FINAL DIAGNOSIS Colon, sigmoid, anastomotic donuts, partial colectomy: MODERATELY DIFFERENTIATED COLORECTAL ADENOCARCINOMA, 6 CM GREATEST DIMENSION 7 LYMPH NODES POSITIVE FOR METASTATIC CARCINOMA (05/19) MARGINS N EGATIVE CONTINUED ON NEXT PAGE RUN DATE: 01/06/19 [facility] - LAB *LIVE* PAGE 2 RUN TIME:165 Specimen Inquiry RUN USER: INTERFACE SPEC #: [facility]:[id number] PATIENT: RACHAEL OQUENDO #[id number] (Continued) GROSS DESCRIPTION Sigmoid colon and anastomotic [...] peritoneal layer with mesentery. The mesentery is tho roughly examined and multiple/more than ten lymph nodes are present in the peritoneal tissue, some are matted, the largest measures 0.8 cm. Additionally received are two anastomotic colonic rings, one measures 1.8 cm in length x 2.0 cm in diameter and the second measures 1.3 cm in length and 2.3 cm indiameter. Section code: A1-A2 Entire circumference margin of proximal end A3 Entire circumference ofdistal margin A4-A5 Superintendent Measurement sections of the lesion A6 Tumor with normal mucosa of proximal margin A7 Tumor with normal mucosa of closest distal margin A8 Normal mucosa A9 Superintendent Measurement sectionsof largest anastomotic ring A10 Superintendent Measurement sections of second anastomotic ring A11 Superintendent Measurement sections of mesentery A12-A14 Superintendent Measurement sections of mesentery with possible matted lymph [id number] Entire lymph nodes, one lymph node each A21 Two lymph nodes A22 Two lymph nodes, serially sectioned A23 Three lymph nodes Grossing performed at [facility] Pathology, [address], [address], [place] [address]. Customer Retention Specialist: Hany Haji M.D. MICROSCOPIC DESCRIPTION Sigmoid [...] CONTINUED ON NEXT PAGE RUN DATE: 01/06/19 [facility] - LAB *LIVE* PAGE 3 RUN TIME: 1652 Specimen Inquiry RUN USER: INTERFACE SPEC #: [facility]:[id number] PATIENT: RACHAEL OQUENDO #[id number] (Continued) MICROSCOPIC DESCRIPTION (Continued) demonstrates moderately differentiated colonic adenocarcinoma with prominent gland formation. Portions of the carcinoma demonstrate poorly formed glands and cell clusters. Carcinoma present in lymph nodes demonstrate a mixture of gland formation with irregular cell clusters. Focal mucinous pools are also identified in the lymph nodes. The margins are negative.The anastomotic donuts are also negative for carcinoma. STAGING: Anatomic site of cancer: Sigmoid Histologic type: Adenocarcinoma Grade (G): G2 Moderately differentiated Tumor size (cm): 6 x 5.5 x 1.5 CM Primary Tumor (T): pT3 Lymph Node (N): pN2b Distant Metastasis (M): Stage Grouping: IIIC SurgicalMargins: Negative SYNOPTIC REPORT Procedure: Sigmoidectomy Tumor site: Sigmoid colon Tumor size: 6 x5.5 x 1.5 cm Histologic type: Adenocarcinoma Histologic grade: G2: Moderately differentiated Tumor ex tension: Tumor invades through muscularis propria Margins: All margins uninvolved Proximal margin: Uninvolved, 1.7 cm Distal margin: Uninvolved colon 6 cm Radial mesenteric margin: Not applicable Treatment effect: No known presurgical therapy Lymphovascular invasion: Present Perineural invasion: Not id entified Tumor deposits: Present, 1 Regional lymph nodes: Number of lymph nodes involved: 7 Number of lymph nodes examined: 10 Pathologic stage: Primary tumor: pT3 Regional lymph nodes: pN2b [place] 01/06/19 1652 END OF REPORT GLUCOSE BEDSIDE [id number] 17:20:00 Test Item Value Reference Range Interpretation Comments GLUCOSE BEDSIDE TESTING (test code 103 mg/dL 70-110 N = GLUBED) GLUCOSE BEDSIDE [id number] 11:28:00 Test Item Value Reference Range Interpretation Comments GLUCOSE BEDSIDE TESTING (test code = 87 mg/dL 70-110 N GLUBED) GLUCOSE BEDSIDE [id number] 07:23:00 Test Item Value Reference Range Interpretation Comments GLUCOSE BEDSIDE TESTING (test code 108 mg/dL 70-110 N = GLUBED) GLUCOSE BEDSIDE [id number] 20:29:00 Test Item Value Reference Range Interpretation Comments GLUCOSE BEDSIDE TESTING (test code = 99 mg/dL 70-110 N GLUBED) GLUCOSE BEDSIDE [id number] 16:28:00 Test Item Value Reference Range Interpretation Comments GLUCOSE BEDSIDE TESTING (test code = 84 mg/dL 70-110 N GLUBED) GLUCOSE BEDSIDE [id number] 11:30:00 Test Item Value Reference Range Interpretation Comments GLUCOSE BEDSIDE TESTING (test code 106 mg/dL 70-110 N = GLUBED) GLUCOSE BEDSIDE [id number] 07:38:00 Test Item Value Reference Range Interpretation Comments GLUCOSE BEDSIDE TESTING (test code 120 mg/dL 70-110 H = GLUBED) CBC W/AUTO [id number] 06:24:00 Test Item Value Reference Range Interpretation [...] = NO DIFF/SCN CRITERIA MDIFF) GLUCOSE BEDSIDE [id number] 21:45:00 Test Item Value Reference Range Interpretation Comments GLUCOSE BEDSIDE TESTING (test code 135 mg/dL 70-110 H = GLUBED) BASIC METABOLIC [id number] 18:20:00 Test Item Value Reference Range Interpretation [...] code = CA) 8.1 MG/DL 8.5-10.1 L [id number] 18:20:00 Test Item Value Reference Range Interpretation Comments PHOSPHOROUS (test code = PHOS) 3.2 MG/DL 2.5-4.9 N [id number] 18:20:00 Test Item Value Reference Range Interpretation Comments MAGNESIUM (test code = MAG) 1.7 MG/DL 1.8-2.4 L GLUCOSE BEDSIDE [id number] 16:54:00 Test Item Value Reference Range Interpretation Comments GLUCOSE BEDSIDE TESTING (test code 160 mg/dL 70-110 H = GLUBED) GLUCOSE BEDSIDE [id number] 14:29:00 Test Item Value Reference Range Interpretation Comments GLUCOSE BEDSIDE TESTING (test code 136 mg/dL 70-110 H = GLUBED) GLUCOSE BEDSIDE [id number] 07:31:00 Test Item Value Reference Range Interpretation Comments GLUCOSE BEDSIDE TESTING (test code 125 mg/dL 70-110 H = GLUBED) Notes Date/Time Note Provider Source 2019-01-18 12:58:00-00:00 [id number] [address] PATIENT NAME: RACHAEL OQUENDO ADMIT DATE: 01/14/19 ACCOUNT NO: [id number] ROOM NO: AGE: 58 REPORT TYPE: OPERATIVE [...] and fluoroscopic interpretation. SURGEON: Kevin Rollins MD. WATER INSPECTOR: None. ANESTHESIA: General, LMA plus local. INDICATIONS [...] immediate complications. SPECIMENS REMOVED: None. IMPLANTS: An 8-[place] PowerPort catheter. DRAINS: None. ESTIMATED BLOOD LOSS: Less than 10 mL. PATIENT NAME: RACHAEL OQUENDO DISPOSITION: At the conclusion of the case, the patient was awakened from anesthesia and LMA was remov ed. The patient was transferred to the PACU in fair condition for a postoperative chest x-ray to be discharged home per protocol. Dictated By: Kevin Rollins MD WT: OP:LDANIELLE/GOVIND/REBECCA Conf#: [id number]/DID#: [id number] Authenticated by Kevin Rollins MD On 9 01:34:33 PM at 1334 PATIENT NAME: RACHAEL OQUENDO 2019-01-14 17:04:00-00:00 [facility] ([facility]) Post Anesthesia Evaluation REPORT#:[id number] REPORT STATUS: Signed DATE:01/14/19 TIME:1704 PATIENT: RACHAEL OQUENDO UNIT #: [id number] ROOM/BED: : 62 AGE: 58 SEX: M ATTEND: Christian Rollins MD ADM AUTHOR: Filomena Carvalho MD * ALL edits or amendments must be made on the el [employer]/computer document * General Post-op: post surgery rounds Post Anesthesia Evaluation Anes. changes from pre-op eval ORM Surgeries: Surgery Date and Time: 01/14/2019 0800 Primary Procedure: PORT-A-CATH PLACEMENT Anesthetic: general LMA [...] 1010 57 13 114/66 100 Room air 03/ 1005 58 13 110/67 100 Simple 10.375497 mask 03/07 1000 57 12 109/61 100 Simple 10.854427 mask / 0955 61 15 107/61 100 Simple 10.576368 mask /07 0950 54 11 104/56 99 Simple 10.522110 mask /07 0946 Simple 10.270668 mask 03/ 0945 55 11 111/55 99 03/07 0940 36.3 54 12 124/65 99 Simple 10.20454 0 mask 03/07 0711 36.5 54 18 [...] MD on 05/28 at 1705 RPT #: [id number] END OF REPORT 2019-01-14 09:51:00-00:00 [facility] ([facility]) Brief Discharge Note w/Med Rec REPORT#:[id number] REPORT STATUS: Signed DATE:01/14/19 TIME:950 PATIENT: RACHAEL OQUENDO UNIT #: [id number] ROOM/BED: : 62 AGE: 58 SEX: M ATTEND: Christian Rollins MD ADM AUTHOR: Kevin Rollins MD * ALL edits or amendments must be made on the el [employer]/computer document * Med Rec Med Rec Discharge [...] Simple mask 01/14 946 O2 Flow Rate 10.132785 01/14 946 Pulse Ox 96 01/14 711 [...] Wound/dressing care: Clean wound daily, OK to brianna tomorrow Pt. condition on discharge: stable Prescriptions: e-prescribe Additional instructions: Call if having fever greater t conn 101.5 or incisional issues Return to work/school: No Follow-up appointment(s): 10 days Electronically Signed by Kevin Rollins MD on 0 01/14/19 at 0953 RPT #: [id number] END OF REPORT 2019-01-14 09:43:00-00:00 [facility] ([facility]) Bedside Procedure Note REPORT#:[id number] REPORT STATUS: Signed DATE:01/14/19 TIME:942 PATIENT: RACHAEL OQUENDO UNIT #: [id number] ROOM/BED: : 62 AGE: 58 SEX: M ATTEND: Christian Rollins MD ADM AUTHOR: Kevin Rollins MD * ALL edits or amendments must be made on the [employer]/computer document * Bedside Procedure Note Bedside Procedure Note Start date: 01/14/19 Start time: 844 Pre-procedure diagnosis: Need for long-term centeral venous access Post-procedure diagnosis: Same as above s/p right IJ port-a-cath placement Procedure performed: Right internal jugu lar port-a-cath placement Fluoroscopic interpretation Performed by: Dr. Kevin Rollins MD Director Of Health Education(s): none Indications: 58 yo M with stage [...] on 0 01/14/19 at 0947 RPT #: [id number] END OF REPORT 2019-01-01 22:43:00-00:00 [facility] ([facility]) Brief Discharge Note w/Med Rec REPORT#:[id number] REPORT STATUS: Signed DATE:01/01/19 TIME:2242 PATIENT: RACHAEL OQUENDO UNIT #: [id number] ROOM/BED: [place] [address] : [birth year] AGE: 58 SEX: M ATTEND: Christian Rollins MD ADM AUTHOR: Kevin Rollins MD * ALL edits or amendments must be made on the el [employer]/computer document * Med Rec Med Rec Discharge [...] Result Date Time Pulse Ox 98 01/02 1619 B/P 124/83 01/02 161 B/P Mean 96.7 01/02 1619 O2 Delivery Room air 01/02 161 Temp 98.6 01/02 161 Pulse 69 01/02 1619 Resp 18 01/02 161 O2 Flow Rate 10.069800 12/31 1430 Brief Discharge Note w/Med Rec [...] on 0 01/05/19 at 1112 RPT #: [id number] END OF REPORT 2019-01-01 13:36:00-00:00 [facility] General Surgery Progress Note REPORT#:[id number] REPORT STATUS: Signed DATE:01/01/19 TIME:1336 PATIENT: RACHAEL OQUENDO UNIT #: [id number] ROOM/BED: [place] [address] : [birth year] AGE: 58 SEX: M ATTEND: Christian Rollins MD ADM AUTHOR: Kevin Rollins MD * ALL edits or amendments must be made on the [employer]/computer document * General Date of surgery: 12/31/18 [...] Resp 18 01/01 1109 O2 Flow Rate 10.874169 12/31 1430 Vital Signs Date Temp Pulse [...] MG DAILY PO Lactated Ringer's 1,000 ML .V85P15Y IV Enoxaparin Sodium 40 MG Q24H SUBQ Influenza Virus Vaccine 60 MCG ASDIR IM Hydromorphone HCl 0.2 MG Q3H PRN PRN IV Lactated Ringer's 1,000 ML .B10N05Y IV (DC) Ondansetron HCl 4 MG Q6H [...] no gua rding Genitourinary - Male: no boss Extremities: moves all Neuro/IRON POURER: alert, normal speech Skin: dry, intact, normal [...] 110 mg/dL) 106 120 H 135 H 1 60 H Calcium (8.5 - 10.1 MG/DL) 8.1 [...] (Auto) (20.5 - 51.1 %) 17.5 L [place] % (Auto) (1.7 - 9.3 %) 9.3 Eos % (Auto) (0.0 - 6.0 %) 0.1 Baso % (Auto) (0.0 - 2.0 %) 0.1 Neut # (Auto) (1.8 - 7.6 K/mm3) 7.73 H Lymph # (Auto) (0.6 - 3.0 K/mm3) 1.9 [place] # (Auto) (0.2 - 1.5 K/mm3) 1.0 Eos # (Auto) (0.0 - 0.4 K/mm3) 0.0 Baso # (Auto) (0.0 - 0.2 K/mm3) 0.0 Add Manual Diff (CRITERIA DIFF/SCN) NO Results: labs reviewed, vital signs stable, curr ent med profile rev'd Treatment Prophylaxis Treatment Prophylaxis Boss documentation: The data below has been impo rted from nursing documentation. Any exceptions have been noted below under Provider comments. _ Nursing Documentation Date boss inserted: 12/31/18 Date boss discontinued: 01/01/19 _ Provider comments: [] Diagnosis, [...] Rollins MD on 0 01/01/19 at 1341 [facility] #: [id number] END OF REPORT 2018-12-31 15:07:00-00:00 [id number] [facility] [address] [place] [address] PATIENT NAME: RACHAEL OQUENDO ADMIT DATE: 12/31/18 ACCOUNT NO: [id number] ROOM NO: [facility] AGE: 58 REPORT TYPE: OPERATIVE REPORT SEX: M ADMITTING PHYSICIAN: Kevin Rollins MD ATTENDING PHYSICIAN: Kevin Rollins MD OPERATION DATE: 12/31/2018 PREOPERATIVE DIAGNOSIS: Colon cancer. POSTOPERATIVE DIAGNOSES: 1. Colon cancer. 2. Status post laparoscopic low anterior resecti on. PROCEDURE PERFORMED: Laparoscopic low anterior r esection. SURGEON: Kevin Rollins MD WATER INSPECTOR: Lucho Buckley LSA ANESTHESIA: General endotracheal anesthesia plus local. INDICATIONS [...] atraumatic graspers. After evacuation of the small liesth l from the pelvis the colon was [...] retrocolic fashion. After completion of the medi oa-rc-yahsvsx direction, the atraumatic grasper and laparoscopic Kittner [...] using the LigaSure PATIENT NAME: RACHAEL OQUENDO 4 energy device. Then, the distal point of transec tion was identified and using the Endo-APOLONIA 45 mm with a blue load with 4 firin gs the proximal rectum and distal colon was stapled and divided. After comp letely dissecting the distal colon, the specimen was mobilized into the perit chand cavity. Irrigation with the suction gear design engineer reveal ed no evidence of active bleeding. [...] of saline and evacuated with the suction gear design engineer. Then, my assistant elementary teacher went below and perform successive dilations of [...] and patted dry prior to PATIENT NAME: OQUENDO,RACHAEL dressing with surgical adhesive in the form [...] function. Dictated By: Kevin Rollins MD WT: OP:JHOAN/GOVIND/NTS Conf#: [id number]/DID#: [id number] Authenticated by Kevin Rollins MD On 9 02:30:53 PM at 1431 PATIENT NAME: RACHAEL OQUENDO 2018-12-31 14:35:00-00:00 [facility] ([facility]) Bedside Procedure Note REPORT#:[id number] REPORT STATUS: Signed DATE:12/31/18 TIME:1435 PATIENT: RACHAEL OQUENDO UNIT #: [id number] ROOM/BED: [place] [address] : 64 AGE: 58 SEX: M ATTEND: Christian Rollins MD ADM AUTHOR: Kevin Rollins MD * ALL edits or amendments must be made on the el [employer]/computer document * Bedside Procedure Note Bedside Procedure Note Start date: 12/31/18 Start time: 45 Pre-procedure diagnosis: Colon cancer Post-procedure diagnosis: Same as above s/p lap low anterior resection Procedure performed: Laparoscopic low anterior r esection Performed by: Dr. Kevin Rollins MD Director Of Health Education(s): LOAN Camargo Indications: 58 yo M with a distal [...] details. Disposition: tolerated proc. well, return to [facility] or Electronically Signed by Kevin Rollins MD on 0 12/31/18 at 1442 RPT #: [id number] END OF REPORT 2018-12-31 13:56:00-00:00 [facility] ([facility]) Post Anesthesia Evaluation REPORT#:[id number] REPORT STATUS: Signed DATE:12/31/18 TIME:1356 PATIENT: RACHAEL OQUENDO UNIT #: [id number] ROOM/BED: [place] [address] : [birth year] AGE: 58 SEX: M ATTEND: Christian Rollins MD ADM AUTHOR: Divina Crabtree CRNA * ALL edits or amendments must be made on the [employer]/computer document * Post Anesthesia Evaluation Anes. changes from pre-op eval ORM Surgeries: Surgery Date and Time: 12/31/2018 0800 Primary Procedure: LAPAROSCOPIC LOW ANTERIOR CO SERGIO Anesthetic: GETA Date: 12/31/18 Level of consciousness: patient awake, able to a nswer questions Vital signs: Vital Signs: Date Time Temp Pulse Resp B/P B/P Pulse O2 O2 F low FiO2 Mean Ox Delivery Rate 12/31 1345 68 12 117/64 99 Simple 10.766146 mask 12/31 1340 37.6 74 12 116/64 [...] issues Electronically Signed by Divina Crabtree CRNA o n 12/31/18 at 1357 RPT #: [id number] END OF REPORT 2018-12-29 16:15:00-00:00 [id number] [address] PATIENT NAME: RACHAEL OQUENDO ADMIT DATE: ACCOUNT NO: [id number] ROOM NO: AGE: 58 REPORT TYPE: eELECTROCARDIOGRAM SEX: M ADMITTING PHYSICIAN: Kevin Rollins MD ATTENDING PHYSICIAN: Kevin Rollins MD Order: [id number] Test Reason : PRE OP Test Date/Time [...] No previous ECGs available Confirmed by DEEPIKA ROBLEDO MD ([id number]) on 12/30/2018 8:5 9:23 PM Referred By: Kevin Rollins Confirmed by:DEEPIKA ROBLEDO MD at 0382 PATIENT NAME: RACHAEL OQUENDO
[2023-05-25] MEDS ORDERED: MORPHINE 4 MG/ML SYR ONE (15:21)
[2023-05-25] MEDS ORDERED: DIAZEPAM 5 MG TABLET ONE (15:21)
[2023-05-25] MEDS ORDERED: dexAMETHasone 10 MG/ML VIAL ONE (15:21)
[2023-05-25] MEDS ORDERED: NA CHLORIDE 0.9% 1,000 ML ONE (15:22)
[2023-05-25] MEDS ORDERED: KETOROLAC 30 MG/ML INJ ONE (15:22)
[2023-05-25] MEDS ORDERED: ONDANSETRON 4 MG/2 ML VIAL ONE (15:22)
[2023-05-25 15:45] LABS: Absolute Lymphocytes (CBC) 2.6 K/uL (0.7-4.9); Hematocrit 38.6 % (39.6-49.0); Lymphocytes % 31.8 % (15.3-44.8); MCV 85.4 fL (80-100); MPV 9.9 fL (7.6-11.3); RBC Red Blood Cell Count 4.52 M/uL (4.33-5.43)
[2023-05-25 15:59] LABS: Albumin 3.9 g/dL (3.4-5.0); Bilirubin Total 0.3 mg/dL (0.2-1.0); Protein, Total 7.4 g/dL (6.4-8.2)
--- NOTE | 2023-05-25 16:33 | RAD REPORT ---
EXAM DESCRIPTION: CT - Spine Lumbar Wo Con - 05/25/2023 3:50 pm CLINICAL HISTORY: PAIN COMPARISON: No comparisons TECHNIQUE: Axial noncontrast CT imaging of the lumbar spine was performed with coronal and sagittal re-formatted images. All CT scans are performed using dose optimization technique as appropriate and may include automated exposure control or mA/KV adjustment according to patient size. FINDINGS: No acute lumbar spine fracture seen. No aggressive marrow pattern or malalignment. Paraspinal tissues are normal in thickness. No paraspinal abscess or hematoma seen. Intervertebral disc disease assessment is inherently limited by CT. Within these limitations, no high -grade canal stenosis suspected. Degenerative changes with bridging osteophytes anteriorly along both sacroiliac joints. Small exophytic cyst arising from the lower right renal pole, not well characterized. IMPRESSION: No acute osseous abnormality. Please consider MRI follow-up for assessment of disc disease or involvement of the neural structures, if clinically desired. Degenerative changes of the sacroiliac joints.
--- NOTE | 2023-05-25 16:55 | ER ---
Nurse's Notes [facility] Name: Taiwo Chery Age: 62 yrs Sex: Male : 1960 Arrival Date: 05/25/2023 Time: 14:49 Bed 5 Private MD: Mike Castillo Diagnosis: Chronic pain, not elsewhere classified;Obesity, unspecified;Low back pain Presentation: 05/25 14:55 Chief complaint: Patient states: lower back pain that is chronic but is worse since iw yesterday , he goes to pain management , he has stenosis , he takes hydrocodone. Coronavirus screen: At this time, the client does not indicate any symptoms associated with coronavirus-19. Ebola Screen: Patient negative for fever greater than or equal to 101.5 degrees Fahrenheit, and additional compatible Ebola Virus Disease symptoms Patient denies exposure to infectious person. Patient denies travel to an Ebola-affected area in the 21 days before illness onset. No symptoms or risks identified at this time. Initial Sepsis Screen: Does the patient meet any 2 criteria? No. Patient's initial sepsis screen is negative. Does the patient have a suspected source of infection? No. Patient's initial sepsis screen is negative. Risk Assessment: Do you want to hurt yourself or someone else? Patient reports no desire to harm self or others. Onset of symptoms was May 24, 2023. 14:55 Method Of Arrival: Ambulatory iw 14:55 Acuity: LEONARD 3 iw Historical: - Allergies: 14:57 No Known Allergies; iw - PMHx: 14:57 diabetes mellitus; Hypertensive disorder; iw - Social history:: Smoking status: . Screenin:15 [facility] ED Fall Risk Assessment (Adult) History of falling in the last 3 months, vg1 including since admission. Abuse screen: Denies threats or abuse. Denies injuries from another. Nutritional screening: No deficits noted. Tuberculosis screening: No symptoms or risk factors identified. Assessment: 15:15 General: Appears in no apparent distress. uncomfortable, Behavior is cooperative. Pain: vg1 Complains of pain in back Pain currently is 10 out of 10 on a pain scale. Neuro: Level of Consciousness is alert, obeys commands, appears to be drowsy . Oriented to person, place, time, situation. Cardiovascular: Patient's skin is warm and dry. Respiratory: Airway is patent Respiratory effort is even, unlabored. GI: No signs and/or symptoms were reported involving the gastrointestinal system. : No signs and/or symptoms were reported regarding the genitourinary system. EENT: No signs and/or symptoms were reported regarding the EENT system. Derm: Skin is pink, warm \T\ dry. Musculoskeletal: Circulation, motion, and sensation intact. 16:18 Reassessment: Patient appears in no apparent distress at this time. Patient and/or vg1 family updated on plan of care and expected duration. Pain level reassessed. pt resting with eyes closed, alert to verbal stimuli. Vital Signs: 14:55 BP 106 / 72; Pulse 60; Resp 18; Pulse Ox 100% on R/A; iw 15:00 BP 117 / 0; Pulse 59; Resp 16; Pulse Ox 99% on R/A; vg1 15:30 BP 109 / 68; Pulse 58; Resp 16; Pulse Ox 98% on R/A; vg1 16:00 BP 93 / 62; Pulse 55; Resp 14; Pulse Ox 97% on R/A; vg1 ED Course: 14:50 Patient arrived in ED. am2 14:50 Mike Castillo DO is Private Physician. am2 14:57 Marek Veras MD is Attending Physician. nancy 14:57 Triage completed. iw 14:58 Arm band placed on. iw 15:05 Erin Hicks, RN is Primary Nurse. vg1 15:15 Patient has correct armband on for positive identification. Bed in low position. Call vg1 light in reach. Side rails up X 1. Adult w/ patient. 15:30 Initial lab(s) drawn, by me, sent to lab. Inserted saline lock: 20 gauge in right vg1 antecubital area, using aseptic technique. Blood collected. 15:51 CT Lumbar Spine Wo Con In Process Unspecified. EDMS 16:55 Mike Castillo DO is Referral Physician. nancy 16:55 Marco A Smiley MD is Referral Physician. nancy 17:12 No provider procedures requiring assistance completed. IV discontinued, intact, vg1 bleeding controlled, No redness/swelling at site. Pressure dressing applied. Administered Medications: 15:26 Drug: NS 0.9% IV 1000 ml Route: IV; Rate: 1 bolus; Site: right antecubital; vg1 15:27 Drug: Ketorolac IVP 30 mg Route: IVP; Site: right antecubital; vg1 15:29 Drug: Ondansetron IVP 4 mg Route: IVP; Site: right antecubital; vg1 15:31 Drug: Decadron - Dexamethasone IVP 10 mg Route: IVP; Site: right antecubital; vg1 16:12 Not Given (Patient Refused): Diazepam PO 10 mg PO once vg1 17:03 Not Given (BP 92/61a): morphine IVP or IV 4 mg IVP once over 4 mins vg1 Medication: 15:15 VIS not applicable for this client. vg1 Outcome: 16:55 Discharge ordered by . nancy 17:12 Discharged to home via wheelchair, with family. vg1 17:12 Condition: good 17:12 Discharge instructions given to patient, family, Instructed on discharge instructions, follow up and referral plans. medication usage, Demonstrated understanding of instructions, follow-up care, medications, Prescriptions given X 3. 17:13 Patient left the ED. vg1 Signatures: Dispatcher [employer] EDNV Marek Veras MD MD cha Williams, Irene, RN RN Meaghan Baldwin Victoria, RN RN vg1 Corrections: (The following items were deleted from the chart) 16:19 15:15 Neuro: Level of Consciousness is awake, alert, obeys commands, Oriented to vg1 person, place, time, situation, vg1
--- NOTE | 2023-05-25 16:55 | EDPHYS ---
Physician Documentation [facility] Name: Taiwo Chery Age: 62 yrs Sex: Male : 1960 Arrival Date: 05/25/2023 Time: 14:49 Bed 5 Private MD: Mike Castillo ED Physician Marek Veras HPI: 05/25 16:23 This 62 yrs old Male presents to ER via Ambulatory with complaints of Low Back nancy Pain. 16:23 The patient presents with pain that is acute, that is chronic, with no known mechanism nancy of injury. The symptoms are located in the low back. The pain does not radiate. The problem was sustained from unknown cause. Onset: The symptoms/episode began/occurred 2 day(s) ago. Modifying factors: The patient symptoms are alleviated by nothing, remaining still, the patient symptoms are aggravated by any movement, bending, standing, supine position. Associated signs and symptoms: The patient has no apparent associated signs or symptoms. Severity of symptoms: At their worst the symptoms were mild, moderate, in the emergency department the symptoms are unchanged. The patient has experienced similar episodes in the past, multiple times, chronically. Historical: - Allergies: 14:57 No Known Allergies; iw - PMHx: 14:57 diabetes mellitus; Hypertensive disorder; iw - Social history:: Smoking status: . ROS: 16:24 Constitutional: Negative for fever, chills, and weight loss, Eyes: Negative for injury, nancy pain, redness, and discharge, ENT: Negative for injury, pain, and discharge, Neck: Negative for injury, pain, and swelling, Cardiovascular: Negative for chest pain, palpitations, and edema, Respiratory: Negative for shortness of breath, cough, wheezing, and pleuritic chest pain, Abdomen/GI: Negative for abdominal pain, nausea, vomiting, diarrhea, and constipation, : Negative for injury, bleeding, discharge, and swelling, MS/Extremity: Negative for injury and deformity, Skin: Negative for injury, rash, and discoloration, Neuro: Negative for headache, weakness, numbness, tingling, and seizure, Psych: Negative for depression, anxiety, suicide ideation, homicidal ideation, and hallucinations, Allergy/Immunology: Negative for hives, rash, and allergies, Endocrine: Negative for neck swelling, polydipsia, polyuria, polyphagia, and marked weight changes, Hematologic/Lymphatic: Negative for swollen nodes, abnormal bleeding, and unusual bruising. 16:24 Back: Positive for decreased range of motion, pain at rest, pain with movement, of the lumbar area, low back area and left low back. Exam: 16:24 Constitutional: This is a well developed, well nourished patient who is awake, alert, nancy and in no acute distress. Head/Face: Normocephalic, atraumatic. Eyes: Pupils equal round and reactive to light, extra-ocular motions intact. Lids and lashes normal. Conjunctiva and sclera are non-icteric and not injected. Cornea within normal limits. Periorbital areas with no swelling, redness, or edema. ENT: Nares patent. No nasal discharge, no septal abnormalities noted. Tympanic membranes are normal and external auditory canals are clear. Oropharynx with no redness, swelling, or masses, exudates, or evidence of obstruction, uvula midline. Mucous membranes moist. Neck: Trachea midline, no thyromegaly or masses palpated, and no cervical lymphadenopathy. Supple, full range of motion without nuchal rigidity, or vertebral point tenderness. No Meningismus. Chest/axilla: Normal chest wall appearance and motion. Nontender with no deformity. No lesions are appreciated. Cardiovascular: Regular rate and rhythm with a normal S1 and S2. No gallops, murmurs, or rubs. Normal PMI, no JVD. No pulse deficits. Respiratory: Lungs have equal breath sounds bilaterally, clear to auscultation and percussion. No rales, rhonchi or wheezes noted. No increased work of breathing, no retractions or nasal flaring. Back: No spinal tenderness. No costovertebral tenderness. Full range of motion. Male : Normal genitalia with no discharge or lesions. Skin: Warm, dry with normal turgor. Normal color with no rashes, no lesions, and no evidence of cellulitis. MS/ Extremity: Pulses equal, no cyanosis. Neurovascular intact. Full, normal range of motion. Neuro: Awake and alert, GCS 15, oriented to person, place, time, and situation. Cranial nerves II-XII grossly intact. Motor strength 5/5 in all extremities. Sensory grossly intact. Cerebellar exam normal. Normal gait. Psych: Awake, alert, with orientation to person, place and time. Behavior, mood, and affect are within normal limits. 16:24 Abdomen/GI: Inspection: abdomen appears normal, Bowel sounds: normal, Palpation: abdomen is soft and non-tender, Liver: no appreciated palpable abnormalities, Hernia: not appreciated. 16:24 Back: ROM is painful, with all movement, with rotation to the right, with rotation to the left, with flexion, with extension, normal spinal alignment noted, CVA tenderness, is absent, vertebral tenderness, is not appreciated, muscle spasm, is not present. Vital Signs: 14:55 BP 106 / 72; Pulse 60; Resp 18; Pulse Ox 100% on R/A; iw 15:00 BP 117 / 0; Pulse 59; Resp 16; Pulse Ox 99% on R/A; vg1 15:30 BP 109 / 68; Pulse 58; Resp 16; Pulse Ox 98% on R/A; vg1 16:00 BP 93 / 62; Pulse 55; Resp 14; Pulse Ox 97% on R/A; vg1 MDM: 14:57 Patient medically screened. [facility] 16:25 Data reviewed: vital signs, nurses notes, lab test result(s), radiologic studies, CT nancy scan. 05/25 15:06 Order name: CBC with Diff; Complete Time: 16:22 [facility] 05/25 15:06 Order name: Comprehensive Metabolic Panel; Complete Time: 16:22 [facility] 05/25 15:06 Order name: CT Lumbar Spine Wo Con nancy Administered Medications: 15:26 Drug: NS 0.9% IV 1000 ml Route: IV; Rate: 1 bolus; Site: right antecubital; vg1 15:27 Drug: Ketorolac IVP 30 mg Route: IVP; Site: right antecubital; vg1 15:29 Drug: Ondansetron IVP 4 mg Route: IVP; Site: right antecubital; vg1 15:31 Drug: Decadron - Dexamethasone IVP 10 mg Route: IVP; Site: right antecubital; vg1 16:12 Not Given (Patient Refused): Diazepam PO 10 mg PO once vg1 17:03 Not Given (BP 92/61a): morphine IVP or IV 4 mg IVP once over 4 mins vg1 Disposition Summary: 05/25/23 16:55 Discharge Ordered Location: Home nancy Problem: an acute exacerbation nancy Symptoms: have improved nancy Condition: Stable nancy Diagnosis - Chronic pain, not elsewhere classified nancy - Obesity, unspecified nancy - Low back pain nancy Followup: nancy - With: - When: 2 - 3 days - Reason: Recheck today's complaints, Continuance of care, Re-evaluation by your physician Followup: nancy - With: - When: 2 - 3 days - Reason: Recheck today's complaints, Re-evaluation by your physician Discharge Instructions: - Discharge Summary Sheet nancy - Acute Back Pain, Adult nancy - Chronic Back Pain nancy - Musculoskeletal Pain nancy - Obesity, Adult nancy - Back Injury Prevention, [id number] nancy - Chronic Back Pain, [id number] nancy - Obesity, Adult, [id number] [facility] Forms: - Medication Reconciliation Form [facility] - Thank You Letter [facility] - Antibiotic Education [facility] - Prescription Opioid Use [facility] - Patient Portal Instructions [facility] - Family Work Release vg1 Prescriptions: - dexamethasone 2 mg Oral tablet - take 1 tablet by ORAL route every 12 hours; 8 tablet; Refills: 0, Product [facility] Selection Permitted - diclofenac sodium 25 mg Oral tablet, delayed release (enteric coated) - take 1 tablet by ORAL route 3 times per day as needed for pain; 21 tablet; [facility] Refills: 0, Product Selection Permitted - Valium 2 mg Oral Tablet - take 1 tablet by ORAL route every 6 hours As needed; 20 tablet; Refills: 0, [facility] Product Selection Permitted Signatures: Dispatcher [employer] Marek Sparks MD MD cha Williams, Irene, RN Erin Cortes RN RN vg1
[2023-05-25 17:31] VITALS: BP 93/62; O2SAT 97
== END 2023-05-25 17:13 | disposition home or self-care (01) ==
LOC: ER 14:49
DX: G89.29 Other chronic pain (principal); E66.9 Obesity, unspecified; I10 Essential (primary) hypertension
CPT/HCPCS: 85025; 36415; 80053; 72131; 96375; 96374; 99284; J1100; J2405; J7030

== ENCOUNTER 2023-07-25 16:07 | Emergency (ER) | payer OTHER ==
--- OUTSIDE RECORDS SUMMARY | 2023-07-25 16:15 | XMS REPORT | Continuity of Care Document ---
:1960 Author Organization [facility] t Address [address] [place] [address] Care Team Providers Name Role Phone VENICE ORTIZJULI Primary Care Physician Unavailable Darius Gallo Attending Clinician Unavailable Brittanie Wing Attending Clinician Unavailable DARIUSZ SANTANA Attending Clinician Unavailable GEORGINA FOSTER Attending Clinician Unavailable LINH JEFFERS Attending Clinician Unavailable ABHAY ASTORGA Attending Clinician Unavailable LAB45 Attending Clinician Unavailable DARIUS GALLO Attending Clinician Unavailable 39, ROLANDTER Attending Clinician Unavailable MD ELISE Attending Clinician Unavailable LAB90 Attending Clinician Unavailable NERI, MEIYU T Attending Clinician Unavailable ARTURRAMY Attending Clinician Unavailable NEO CARBAJAL Attending Clinician Unavailable DARREL CHOI Attending Clinician Unavailable VELIA VALENZUELA 1 Attending Clinician Unavailable CHRISTIANO MENDOZA Attending Clinician Unavailable LATHA ROCK Attending Clinician Unavailable YOHAN FRIEDMAN Attending Clinician Unavailable MICAH ULLOA Attending Clinician Unavailable ElkinsRaul tay DO Attending Clinician JERROD ANDERSON Attending Clinician Unavailable LATHA AVILA Attending Clinician Unavailable Rafia Medina Attending Clinician RAFIA GORDON Attending Clinician Unavailable Doctor Unassigned, [place] Attending Clinician Unavailable Errol Callejas Attending Clinician ERROL SHARP Attending Clinician Unavailable JERROD ANDERSON Admitting Clinician Unavailable Payers Payer Name Policy Type Policy Number Effective Date Expiration Date S ourv[address] [place] GOLD 7 [id number] 2022 PLUS 33 D-SNP 00:00:00 OA HUMANA MA 5 [id number] 2022 00:00:00 KCA GOLD 16 [id number] 2021 FREEDOM HMO-POS 00:00:00 HUMANA MEDICARE 53 [id number] 2022 Common Sp les 00:00:00 [facility] [id number] 2019 HEALTH CHOICE 00:00:00 Problems Condition Condition [...] l History of History of Disease Active K jadiel colectomy colectomy 1-18 Seyb old 00:00: - 00 Externa l Chronic Chronic Disease Active Kateryna bilateral bilateral 1-18 Seyb old low back low back 00:00: - pain with pain with 00 Exte rna bilateral bilateral l sciatica sciatica Fatty Fatty Disease Active Kateryna liver liver -18 Seybold 00:00: - 00 Externa l Acute Acute Disease Active Kateryna pharyngiti pharyngiti 1-05 Se ybold s due to s due to 00:00: - other other 00 Externa specified specified l organisms organisms Radiculopa Radiculopa Disease Active 2021-11 Last K elsey thy thy 1-16 Assessmen Seybold 00:00: t [...] mild Type 2 Type 2 Disease Active Kateyrna diabetes diabetes 1-17 Seybol d mellitus mellitus 00:00: - with with 00 Externa hyperglyce hyperglyce l kurtis hull HTN HTN Disease Active Kateryna (hypertens (hypertens Se ybold ion) ion) - Externa l Depression Depression Disease Active K jadiel Jenkinsybold DM DM Disease Active Kateryna (diabetes (diabetes Seyb old mellitus), mellitus), type 2 type 2 [id number] Other Problem Common chronic Spirit pain - [facility] Incomplete Incomplete Problem C ommon emptying emptying Spirit of bladder of bladder - [facility] Disorder Renal Problem Common of kidney mass, Spirit and/or right - [facility] ureter [facility] [id number] Primary Problem Comm on osteoarthr Spirit itis of - [facility] right knee [facility] [id number] Primary Problem Comm on osteoarthr Spirit itis of - [facility] left knee [facility] [id number] BPH loc w Problem Com mon urin Spirit obs/LUTS - [facility] [id number] Right-side Problem Co mmon d low back Spirit pain - [facility] without St sciatica, [facility] chronicity Spasm Jerking Problem Common movements Spirit of - [facility] extremitie [facility] [id number] CPAP Problem Common (continuou Spirit s positive - [facility] airway [facility] pressure) 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 Hyperlipid Hyperlipid Problem C ommon emia emia Spirit - [facility] [id number] Depression Problem Co mmon with Spirit anxiety - [facility] [id number] Morbid Problem Common obesity Spirit - [facility] [id number] Essential Problem Comm on hypertensi Spirit on - [facility] Skin Numbness Problem Common sensation in both Spirit disturbanc hands - [facility] e [facility] [id number] Uncontroll Problem Co mmon ed type 2 [facility] diabetes - [facility] mellitus [facility] hyperglyce [facility] 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 - [facility] Phimosis Phimosis Problem Commo n Spirit [facility] [id number] Lower Problem Common urinary [facility] tract - [facility] ([facility] Acute Acute Problem Common cystitis cystitis [facility] with [facility] hematuria [facility] [id number] Hx of Problem Common colon Spirit cancer, - [facility] stage III [facility] Cancer Cancer Problem Common [facility] Dizziness Dizziness Problem Com mon [facility] [id number] Leg Problem Common heaviness [facility] Headache Frequent Problem Commo n headaches [facility] [id number] Obstructiv Problem Com mon e sleep Spirit apnea [facility] Gross Gross Problem Common hematuria hematuria Spir it [facility] 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[facility] kidney - [facility] disease [facility] Arthritis Arthritis Problem Com mon of both of both [facility] knees knees [facility] Allergies, Adverse Reactions, Alerts Allergy Allergy Status Severity Reaction(s) Onset Inactive Treating Comm ents Source Name Type Date Date Clinician No Known DA Active U 2018-0 [facility] Allergie 2-19 Pearlan s 00:00: d [address] [place] [address] NO KNOWN Drug Active [facility] ALLERGIE Class ity of [facility] Social History Social Habit Start Date Stop Date Quantity Comments Source Gender identity Kateryna duron - External Sexual orientation Kateryna Gauthier - External Exposure to Not sure Kateryna zepeda SARS-CoV-2 (event) History of Tobacco Common Spirit - Use [facility] Sex Assigned At Com mon [facility] History of Social 2021-11-26 2021-11-26 Kateryna Gauthier - function 00:00:00 00:00:00 External Smoking Status Start Date Stop Date Source Former Smoker 2023-03-24 00:00:00 2023-03-24 00:00:00 Common S pirit - [facility] nter Never smoked tobacco Kateryna Seyb old - External Medications Ordered Filled Start Stop Current Ordering Indication Dosage Frequency Signature Comments Components Source Medication Medication Date Date Medication? Clinician (SIG) Name Name Aripiprazol 0 Yes 15mg Take 1 Keisha ey e 15 MG 8-22 tablet (15 Seybol d oral Tablet 14:34: mg total) - 46 by mouth Externa daily. l Trazodone 0 2022- No Trazodone Ke lsey HCl 100 MG 8-01 07- Oral once Sey bold oral Tablet 14:32: 00:00 daily - 18 :00 active Externa l Metformin 2022-0 Yes [id number] 1000mg Take 1 Kateryna HCl 1000 MG 8-22 3 tablet Seybol d oral Tablet 00:00: (1,000 mg - 00 total) by Externa mouth in l the morning and 1 tablet (1,000 mg total) in the evening. Take with meals. Blood Yes USE Kateryna Glucose 7-24 DIRECTED Seybold Monitoring 00:00: - Suppl (True 00 Externa Metrix Air l Glucose Meter) w/Device does not apply Kit Aspirin 81 2022-0 Yes 81mg Take 1 Kelse y MG oral 6-21 tablet (81 Seybol d Tablet 15:48: mg total) - Delayed 07 by mouth Externa Response l Tizanidine 0 Yes 4mg Take 1 Kelse y HCl 4 MG 6-21 tablet (4 Seybol d oral Tablet 15:48: mg total) - 07 by mouth Externa at bedtime l HYDROcodone 2022-0 Yes [id number] 1{tbl} QD Take 1 Kateryna -Acetaminop 6-21 tablet by Rosalba manjarrez hen 10-325 15:48: mouth - MG oral 07 daily as Externa Tablet needed for l pain Eszopiclone 2022-0 Yes Eszopiclon Kateryna 3 MG oral 6-21 e Oral Seybold Tablet 15:48: once daily - 07 active Externa l methylPREDN 0 2022- No [id number] Take is Kateryna ISolone 04-09 [id number] instructed Rosalba manjarrez (Medrol) 4 00:00: 00:00 on pack - MG oral 00 :00 Externa Tablet l Therapy Pack Ciprofloxac 2022- No [id number] 500mg Take 1 Kateryna in HCl 5-17 08-22 tablet Seybold (Cipro) 500 00:00: 00:00 (500 mg - MG oral 00 :00 total) by Externa Tablet mouth 2 l times daily for 7 days Naproxen Naproxen 2022-0 No BID Naproxen 500 MG 500 MG 5-15 500 MG 00:00: 00 Aspirin 81 2022-0 Yes 81mg Take 1 Kelse y MG oral 4-28 tablet (81 Seybol d Tablet 11:36: mg total) - Delayed 59 by mouth Externa Response l Tizanidine 0 Yes 4mg Take 1 Kelse y HCl 4 MG 4-28 tablet (4 Seybol d oral Tablet 11:36: mg total) - 59 by mouth Externa at bedtime l HYDROcodone 2022-0 Yes [id number] 1{tbl} QD Take 1 Kateryna -Acetaminop 4-28 tablet by Rosalba manjarrez hen 10-325 11:36: mouth - MG oral [...] 00 night Externa l Enalapril 2022-0 Yes [id number] TAKE 1 Ke lsey Maleate 10 4-25 TABLET Seybold MG oral 00:00: EVERY DAY - Tablet 00 Externa l Blood 2022-0 Yes USE Kateryna Glucose 4-25 MONITOR TO Seybol d Monitoring 00:00: CHECK - Suppl (True 00 BLOOD Externa Metrix Air SUGAR l Glucose Meter) w/Device does not apply Kit Pantoprazol 2022-0 Yes [id number] TAKE 1 Kateryna e Sodium 40 4-25 TABLET Seybol d MG oral 00:00: EVERY DAY - Tablet 00 Externa Delayed l Response Blood Yes Kateryna Glucose 4-25 Seybold Calibration 00:00: - (True 00 Externa Metrix l Level 1) Low in vitro Solution Enalapril Yes [id number] TAKE 1 Sam ramirezey Maleate 10 4-25 TABLET Seybold MG oral 00:00: EVERY DAY - Tablet 00 Externa l Pantoprazol Yes [id number] TAKE 1 Kateryna e Sodium 40 4-25 TABLET Seybol d MG oral 00:00: EVERY DAY - Tablet 00 Externa Delayed l Response Blood Yes Kateryna Glucose 4-25 Seybold Calibration 00:00: - (True 00 Externa Metrix l Level 1) Low in vitro Solution Metoprolol Yes [id number] 25mg Take 1 K elsey Tartrate 4-24 tablet (25 Seybo ld (LOPRESSOR) 00:00: mg total) - 25 MG oral 00 by mouth 2 Ext gerber Tablet times l daily Metoprolol Yes [id number] 25mg Take 1 K elsey Tartrate 4-24 tablet (25 Seybo ld (LOPRESSOR) 00:00: mg total) - 25 MG oral 00 by mouth 2 Ext gerber Tablet times l daily HYDROcodone Yes [id number] 1{tbl} QD Take 1 Kateryna -Acetaminop 4-18 tablet by Sey bold hen 10-325 13:35: mouth - MG oral 39 daily as Externa Tablet needed for l pain Aspirin 81 Yes 1{tbl} Take 1 Dre sey MG oral 3-08 tablet by Seybold Tablet 11:26: mouth - Delayed 27 Externa Response l Tizanidine Yes 1{tbl} Take 1 Dre sey HCl 4 MG 3-08 tablet by Seybol d oral Tablet 11:26: mouth at - 27 bedtime Externa l Aspirin 81 Yes 1{tbl} Take 1 Dre sey MG oral 3-08 tablet by Seybold Tablet 11:26: mouth - Delayed 27 Externa Response l Tizanidine Yes 1{tbl} Take [...] at - 00 night Externa l Gabapentin 202-0 2023- No 1 in AM, 1 Kateryna 300 MG oral 3-08 04-28 at noon, Sey bold Capsule 00:00: 00:00 and 2 at - 00 :00 night Externa l Albuterol 2022-0 Yes [id number] 2{puff} Q.25D Inhale 2 Kateryna HFA 108 (90 2-23 puffs into Se ybold Base) 00:00: the lungs - MCG/ACT IN 00 every 6 Popcorn Vendor a AERS hours as l needed for wheezing Albuterol 2022-0 Yes [id number] 2{puff} Q.25D Inhale 2 Kateryna HFA 108 (90 2-23 puffs into Se ybold Base) 00:00: the lungs - MCG/ACT IN 00 every 6 Popcorn Vendor a AERS hours as l needed for wheezing Albuterol 2022-0 Yes [id number] 2{puff} Q.25D Inhale 2 Kateryna HFA 108 (90 2-23 puffs into Se ybold Base) 00:00: the lungs - MCG/ACT IN 00 every 6 Popcorn Vendor a AERS hours as l needed for wheezing Albuterol 2022-0 Yes [id number] 2{puff} Q.25D Inhale 2 Kateryna HFA 108 (90 2-23 puffs into Se ybold Base) 00:00: the lungs - MCG/ACT IN 00 every 6 Popcorn Vendor a AERS hours as l needed for wheezing Aspirin 81 2022-0 Yes 1{tbl} Take 1 Dre sey MG oral 2-09 tablet by Seybold Tablet 09:34: mouth - Delayed 36 Externa Response l Tizanidine 2022-0 Yes 1{tbl} Take 1 Dre sey HCl 4 MG 2-09 tablet by Seybol d oral Tablet 09:34: mouth at - 36 bedtime Externa l Aspirin 81 2022-0 Yes [...] then l 1 po TID Gabapentin 2022-0 3- No 1 po q HS K elsey [...] 00:00: daily - 00 Externa l Zolpidem 3-0 Yes 12.5mg Take 12.5 Ke lsey Tartrate [...] by Ext gerber mouth at l bedtime Sertraline 2022-0 Yes 50mg Take 1 Kelse y HCl 50 MG 1-24 tablet (50 Seyb old oral Tablet 00:00: mg total) - 00 by mouth Externa daily l Zolpidem 2022-0 2023- No 12.5mg Take 1 Keisha ey Tartrate 1-24 08-22 tablet Seybold 12.5 MG 00:00: 00:00 (12.5 mg - oral Tab CR 00 :00 total) by Ext gerber mouth at l bedtime Bupropion 2022-0 2023- No every 12 Dre sey HCL XL 150 1-18 01-18 hours Seybold MG OR TB24 13:30: 00:00 - 10 :00 Externa l Gabapentin 2023-0 2023- No 600mg Take 600 K elsey 600 [...] at - 55 bedtime Externa l HYDROcodone 2023-0 Yes [id number] 1{tbl} QD Take 1 Kateryna -Acetaminop 1-18 tablet by Rosalba siddiqi ([address]) 00:00: mouth - 5-325 MG 00 daily as Externa oral Tablet needed for l pain Doxepin HCl 2022-0 Yes [id number] 50mg Take 1 K elsey 50 MG oral 1-18 capsule Seybol d Capsule 00:00: (50 mg - 00 total) by Externa mouth l daily Bupropion 2022-0 Yes [id number] 150mg QD Take 1 K elsey HCL XL 150 1-18 tablet Seybold MG OR TB24 00:00: (150 mg - 00 total) by Externa mouth l daily as needed (anxiety) HYDROcodone 2022-0 Yes [id number] 1{tbl} QD Take 1 Kateryna -Acetaminop 1-18 tablet by Rosalba siddiqi ([address]) 00:00: mouth - 5-325 MG 00 daily as Externa oral Tablet needed for l pain Doxepin HCl 2022-0 Yes [id number] 50mg Take 1 K elsey 50 MG oral 1-18 capsule Seybol d Capsule 00:00: (50 mg - 00 total) by Externa mouth l daily Bupropion 2022-0 Yes [id number] 150mg QD Take 1 K elsey HCL XL 150 1-18 tablet Seybold MG OR TB24 00:00: (150 mg - 00 total) by Externa mouth l daily as needed (anxiety) HYDROcodone 2022-0 Yes [id number] 1{tbl} QD Take 1 Kateryna -Acetaminop 1-18 tablet by Rosalba siddiqi ([address]) 00:00: mouth - 5-325 MG 00 daily as Externa oral Tablet needed for l pain Doxepin HCl 2022-0 Yes [id number] 50mg Take 1 K elsey 50 MG oral 1-18 capsule Seybol d Capsule 00:00: (50 mg - 00 total) by Externa mouth l daily Bupropion 2022-0 Yes [id number] 150mg QD Take 1 K elsey HCL XL 150 1-18 tablet Seybold MG OR TB24 00:00: (150 mg - 00 total) by Externa mouth l daily as needed (anxiety) HYDROcodone 2022-0 Yes [id number] 1{tbl} QD Take 1 Kateryna -Acetaminop 1-18 tablet by Rosalba siddiqi ([address]) 00:00: mouth - 5-325 MG 00 daily as Externa oral Tablet needed for l pain Doxepin HCl 2022-0 Yes [id number] 50mg Take 1 K elsey 50 MG oral 1-18 capsule Seybol d Capsule 00:00: (50 mg - 00 total) by Externa mouth l daily Bupropion 2022-0 Yes [id number] 150mg QD Take 1 K elsey HCL XL 150 1-18 tablet Seybold MG OR TB24 00:00: (150 mg - 00 total) by Externa mouth l daily as needed (anxiety) Doxepin HCl 2022-0 Yes [id number] 50mg Take 1 K elsey 50 MG oral 1-18 capsule Seybol d Capsule 00:00: (50 mg - 00 total) by Externa mouth l daily Bupropion 2022-0 Yes [id number] 150mg QD Take 1 K elsey HCL XL 150 1-18 tablet Seybold MG OR TB24 00:00: (150 mg - 00 total) by Externa mouth l daily as needed (anxiety) Doxepin HCl 2022-0 Yes [id number] 50mg Take 1 K elsey 50 MG oral 1-18 capsule Seybol d Capsule 00:00: (50 mg - 00 total) by Externa mouth l daily Bupropion 2022-0 Yes [id number] 150mg QD Take 1 K elsey HCL XL 150 1-18 tablet Seybold MG OR TB24 00:00: (150 mg - 00 total) by Externa mouth l daily as needed (anxiety) Doxepin HCl 2022-0 Yes [id number] 50mg Take 1 K elsey 50 MG oral 1-18 capsule Seybol d Capsule 00:00: (50 mg - 00 total) by Externa mouth l daily Bupropion 2022-0 Yes [id number] 150mg QD Take 1 K elsey HCL XL 150 1-18 tablet Seybold MG OR TB24 00:00: (150 mg - 00 total) by Externa mouth l daily as needed (anxiety) HYDROcodone 2022-0 3- No [id number] 1{tbl} QD Take 1 Kateryna -Acetaminop 1-18 04-18 tablet by Se ybold hen (NORCO) 00:00: 00:00 mouth - 5-325 MG 00 :00 daily as Externa oral Tablet needed for l pain Amoxicillin 2022-0 Yes [id number] 1{tbl} Take 1 Kateryna Diane 1-05 tablet by Seybold Clavulanate 00:00: mouth 2 - 875-125 MG 00 times Externa oral Tablet daily l Benzonatate 2022-0 Yes [id number] 100mg Q.[id number] Take 1 Kateryna (Tessalon - [id number] capsule S eybold Perles) 100 00:00: 3D (100 mg - MG oral 00 total) by Externa Capsule mouth 3 l times daily as needed for cough Amoxicillin 2022-0 2022- No [id number] 1{tbl} Take 1 Kateryna Diane 05 11-27 tablet by Seybold Clavulanate 00:00: 00:00 mouth 2 - 875-125 MG 00 :00 times Externa oral Tablet daily l Benzonatate 2022-0 2022- No [id number] 100mg Q.[id number] Take 1 Kateryna (Tessalon 1-05 11-27 [id number] capsule Seybold Perles) 100 00:00: 00:00 3D [...] times Externa daily l Enalapril 2021-11 Yes [id number] 10mg Take 1 Ke lsey Maleate 10 0-31 tablet (10 Sey bold MG oral 00:00: mg total) - Tablet 00 by mouth Externa daily l Pantoprazol 2021-11 Yes [id number] 40mg Take 1 Kateryna e Sodium 40 0-31 tablet (40 Se ybold MG oral 00:00: mg total) - Tablet 00 by mouth Externa Delayed daily l Response Enalapril 2021-11 Yes [id number] 10mg Take 1 Ke lsey Maleate 10 0-31 tablet (10 Sey bold MG oral 00:00: mg total) - Tablet 00 by mouth Externa daily l Pantoprazol 2021-11 Yes [id number] 40mg Take 1 Kateryna e Sodium 40 0-31 tablet (40 Se ybold MG oral 00:00: mg total) - Tablet 00 by mouth Externa Delayed daily l Response Enalapril 2021-11 Yes [id number] 10mg Take 1 Ke lsey Maleate 10 0-31 tablet (10 Sey bold MG oral 00:00: mg total) - Tablet 00 by mouth Externa daily l Pantoprazol 2021-11 Yes [id number] 40mg Take 1 Kateryna e Sodium 40 0-31 tablet (40 Se ybold MG oral 00:00: mg total) - Tablet 00 by mouth Externa Delayed daily l Response Enalapril 2021-11 Yes [id number] 10mg Take 1 Ke lsey Maleate 10 0-31 tablet (10 Sey bold MG oral 00:00: mg total) - Tablet 00 by mouth Externa daily l Pantoprazol 2021-11 Yes [id number] 40mg Take 1 Kateryna e Sodium 40 0-31 tablet (40 Se ybold MG oral 00:00: mg total) - Tablet 00 by mouth Externa Delayed daily l Response Enalapril 2021-11 Yes [id number] 10mg Take 1 Ke lsey Maleate 10 0-31 tablet (10 Sey bold MG oral 00:00: mg total) - Tablet 00 by mouth Externa daily l Pantoprazol 2021-11 Yes [id number] 40mg Take 1 Kateryna e Sodium 40 0-31 tablet (40 Se ybold MG oral 00:00: mg total) - Tablet 00 by mouth Externa Delayed daily l Response Enalapril 2021-11 Yes [id number] 10mg Take 1 Ke lsey Maleate 10 0-31 tablet (10 Sey bold MG oral 00:00: mg total) - Tablet 00 by mouth Externa daily l Pantoprazol 2021-11 Yes [id number] 40mg Take 1 Kateryna e Sodium 40 0-31 tablet (40 Se ybold MG oral 00:00: mg total) - Tablet 00 by mouth Externa Delayed daily l Response Enalapril 2021-11 Yes [id number] 10mg Take 1 Ke lsey Maleate 10 0-31 tablet (10 Sey bold MG oral 00:00: mg total) - Tablet 00 by mouth Externa daily l Pantoprazol 2021-11 Yes [id number] 40mg Take 1 Kateryna e Sodium 40 0-31 tablet (40 Se ybold MG oral 00:00: mg total) - Tablet 00 by mouth Externa Delayed daily l Response Enalapril 2021-11 Yes [id number] 10mg Take 1 Ke lsey Maleate 10 0-31 tablet (10 Sey bold MG oral 00:00: mg total) - Tablet 00 by mouth Externa daily l Pantoprazol 2021-11 Yes [id number] 40mg Take 1 Kateryna e Sodium 40 0-31 tablet (40 Se ybold MG oral 00:00: mg total) - Tablet 00 by mouth Externa Delayed daily l Response Enalapril 0 2022- No [id number] 20mg Take 1 K elsey Maleate 20 9-19 10-31 tablet (20 Se ybold MG oral 00:00: 00:00 mg total) - Tablet 00 :00 by mouth Externa daily l OrthoVisc OrthoVisc No 15mg Com mon 07-09 Spirit 00:00: - [facility] 00 [facility] Blood Yes Use Kateryna Glucose 8-30 monitor to Seybol d Monitoring 00:00: check - Suppl 00 blood Externa (Blood sugar l Glucose Monitor System) w/Device does not apply Kit Blood Yes Use to Kateryna Glucose 8-30 check FSBS Seybol d Monitoring 00:00: as needed. - Suppl 00 Externa (Blood l Glucose Monitor System) w/Device does not apply Kit Glucose 0 Yes [id number] 1{each} 1 each by Kateryna Blood in [...] does not apply Kit Glucose 2021-0 Yes [id number] 1{each} 1 each by Kateryna Blood in [...] w/Device does not apply Kit Glucose Yes [id number] 1{each} 1 each by Kateryna Blood in [...] 2021-0 2022- No Use Kateryna Glucose 8-30 18 monitor to Seybo ld Monitoring 00:00: 00:00 check - Suppl 00 :00 blood Externa (Blood sugar l Glucose Monitor System) w/Device does not apply Kit Blood 2021-0 2022- No Use to Kateryna Glucose 8-30 18 check FSBS Seybo ld Monitoring 00:00: 00:00 as needed. - Suppl 00 :00 Externa (Blood l Glucose Monitor System) w/Device does not apply Kit Glucose 2021-0 2022- No [id number] 1{each} 1 each by Kateryna Blood in 830 11-27 other Seybold vitro Strip 00:00: 00:00 route - 00 :00 daily Use Externa 1 as l directed twice daily to check blood glucose. GNP Sterile 0 2022- No 1{each} 1 each by Kateryna Lancets 33G 8-30 18 does not Sey bold does not 00:00: 00:00 apply - apply Misc 00 :00 route 2 to Ext gerber 3 times l daily Metformin 2022-0 Yes [id number] 1000mg Take 1 Kateryna HCl 1000 MG 8-28 tablet Seybol d oral Tablet 00:00: (1,000 mg - 00 total) by Externa mouth in l the morning and 1 tablet (1,000 mg total) in the evening. Take with meals. Metoprolol 2021-0 Yes [id number] 25mg Take 1 K elsey Tartrate 25 8-28 tablet (25 Se ybold MG oral 00:00: mg total) - Tablet 00 by mouth 2 Externa times l daily Atorvastati 2021-0 Yes [id number] 40mg Take 1 Kateryna n Calcium 8-28 tablet (40 Seyb old 40 MG oral 00:00: mg total) - Tablet 00 by mouth Externa daily l Metformin 2021-0 Yes [id number] 1000mg Take 1 Kateryna HCl 1000 MG 8-28 tablet Seybol d oral Tablet 00:00: (1,000 mg - 00 total) by Externa mouth in l the morning and 1 tablet (1,000 mg total) in the evening. Take with meals. Metoprolol 2021-0 Yes [id number] 25mg Take 1 K elsey Tartrate 25 8-28 tablet (25 Se ybold MG oral 00:00: mg total) - Tablet 00 by mouth 2 Externa times l daily Atorvastati 2021-0 Yes [id number] 40mg Take 1 Kateryna n Calcium 8-28 tablet (40 Seyb old 40 MG oral 00:00: mg total) - Tablet 00 by mouth Externa daily l Metformin 2021-0 Yes [id number] 1000mg Take 1 Kateryna HCl 1000 MG 8-28 tablet Seybol d oral Tablet 00:00: (1,000 mg - 00 total) by Externa mouth in l the morning and 1 tablet (1,000 mg total) in the evening. Take with meals. Metoprolol 2-0 Yes [id number] 25mg Take 1 K elsey Tartrate 25 8-28 tablet (25 Se ybold MG oral 00:00: mg total) - Tablet 00 by mouth 2 Externa times l daily Atorvastati 2-0 Yes [id number] 40mg Take 1 Kateryna n Calcium 8-28 tablet (40 Seyb old 40 MG oral 00:00: mg total) - Tablet 00 by mouth Externa daily l Metformin 2021-0 Yes [id number] 1000mg Take 1 Kateryna HCl 1000 MG 8-28 tablet Seybol d oral Tablet 00:00: (1,000 mg - 00 total) by Externa mouth in l the morning and 1 tablet (1,000 mg total) in the evening. Take with meals. Metoprolol 2021-0 Yes [id number] 25mg Take 1 K elsey Tartrate 25 8-28 tablet (25 Se ybold MG oral 00:00: mg total) - Tablet 00 by mouth 2 Externa times l daily Atorvastati 2021-0 Yes [id number] 40mg Take 1 Kateryna n Calcium 8-28 tablet (40 Seyb old 40 MG oral 00:00: mg total) - Tablet 00 by mouth Externa daily l Metformin 2021-0 Yes [id number] 1000mg Take 1 Kateryna HCl 1000 MG 8-28 tablet Seybol d oral Tablet 00:00: (1,000 mg - 00 total) by Externa mouth in l the morning and 1 tablet (1,000 mg total) in the evening. Take with meals. Metoprolol 2021-0 Yes [id number] 25mg Take 1 K elsey Tartrate 25 8-28 tablet (25 Se ybold MG oral 00:00: mg total) - Tablet 00 by mouth 2 Externa times l daily Atorvastati 2021-0 Yes [id number] 40mg Take 1 Kateryna n Calcium 8-28 tablet (40 Seyb old 40 MG oral 00:00: mg total) - Tablet 00 by mouth Externa daily l Metformin 2021-0 Yes [id number] 1000mg Take 1 Kateryna HCl 1000 MG 8-28 tablet Seybol d oral Tablet 00:00: (1,000 mg - 00 total) by Externa mouth in l the morning and 1 tablet (1,000 mg total) in the evening. Take with meals. Metoprolol 2-0 Yes [id number] 25mg Take 1 K elsey Tartrate 25 8-28 tablet (25 Se ybold MG oral 00:00: mg total) - Tablet 00 by mouth 2 Externa times l daily Atorvastati 2-0 Yes [id number] 40mg Take 1 Kateryna n Calcium 8-28 tablet (40 Seyb old 40 MG oral 00:00: mg total) - Tablet 00 by mouth Externa daily l Metformin 2-0 Yes [id number] 1000mg Take 1 Kateryna HCl 1000 MG 8-28 tablet Seybol d oral Tablet 00:00: (1,000 mg - 00 total) by Externa mouth in l the morning and 1 tablet (1,000 mg total) in the evening. Take with meals. Metoprolol 2021-0 Yes [id number] 25mg Take 1 K elsey Tartrate 25 8-28 tablet (25 Se ybold MG oral 00:00: mg total) - Tablet 00 by mouth 2 Externa times l daily Atorvastati 2021-0 Yes [id number] 40mg Take 1 Kateryna n Calcium 8-28 tablet (40 Seyb old 40 MG oral 00:00: mg total) - Tablet 00 by mouth Externa daily l Metformin 2021-0 Yes [id number] 1000mg Take 1 Kateryna HCl 1000 MG 8-28 tablet Seybol d oral Tablet 00:00: (1,000 mg - 00 total) by Externa mouth in l the morning and 1 tablet (1,000 mg total) in the evening. Take with meals. Metoprolol 2021-0 Yes [id number] 25mg Take 1 K elsey Tartrate 25 8-28 tablet (25 Se ybold MG oral 00:00: mg total) - Tablet 00 by mouth 2 Externa times l daily Atorvastati 2021-0 Yes [id number] 40mg Take 1 Kateryna n Calcium 8-28 tablet (40 Seyb old 40 MG oral 00:00: mg total) - Tablet 00 by mouth Externa daily l Metformin 2021-0 Yes [id number] 1000mg Take 1 Kateryna HCl 1000 MG 8-28 tablet Seybol d oral Tablet 00:00: (1,000 mg - 00 total) by Externa mouth in l the morning and 1 tablet (1,000 mg total) in the evening. Take with meals. Atorvastati 2021-0 Yes [id number] 40mg Take 1 Kateryna n Calcium 8-28 tablet (40 Seyb old 40 MG oral 00:00: mg total) - Tablet 00 by mouth Externa daily l Atorvastati 2021-0 Yes [id number] 40mg Take 1 Kateryna n Calcium 8-28 tablet (40 Seyb old 40 MG oral 00:00: mg total) - Tablet 00 by mouth Externa daily l Metformin 2021-0 2023- No [id number] 1000mg Take 1 Kateryna HCl 1000 MG 07-07 08-22 tablet Seybo ld oral Tablet 00:00: 00:00 (1,000 mg - 00 :00 total) by Externa mouth in l the morning and 1 tablet (1,000 mg total) in the evening. Take with meals. Applicators Yes Use swab Ke lsey (Q-Tips/Sin [...] 2022- No Use swab K elsey (Q-Tips/Sin 8-04 12-18 to clean Sey bold gle-Tip) 00:00: 00:00 site - does not 00 :00 Externa apply SWAB l OrthoVisc OrthoVisc 2021-0 No 15mg Com 07-02 [facility]: [facility] OrthoVisc OrthoVisc 2021-0 No 15mg Com 06-26 [facility] 00:[facility]: [facility] Duloxetine 2021-0 Yes 120mg Take 120 Ke [...] BEFORE BEDTIME NEEDED Flomax 0.4 Flomax 0.4 2021-0 2022- No 1{capsu QD Flomax 0.4 MG MG 5-19 08-20 le} MG 00:00: 00:00 00 :00 Bupivicaine Bupivicaine 2022-0 No 2.5mg Common Rogerson Rogerson 4-19 [facility] 00[facility]: - [facility] Kenalog Kenalog 2021-0 No 40mg Common (Triamcinol (Triamcinol 4-19 S pirit one) one) 00:00: - [facility] Trazodone 2021-0 Yes 1{tbl} QD Take 1 Keisha ey HCl 50 MG 4-18 tablet by Seybo ld oral Tablet 00:00: mouth - 00 nightly as Externa needed l Trazodone 2-0 Yes 1{tbl} QD Take 1 Keisha ey HCl 50 MG 4-18 tablet by Seybo ld oral Tablet 00:00: mouth - 00 nightly as Externa needed l Trazodone 2021-0 Yes 1{tbl} QD Take 1 Keisha ey HCl 50 MG 4-18 tablet by Seybo ld oral Tablet 00:00: mouth - 00 nightly as Externa needed l Trazodone 2-0 Yes 1{tbl} QD Take 1 Keisha ey HCl 50 MG 4-18 tablet by Seybo ld oral Tablet 00:00: mouth - 00 nightly as Externa needed l Trazodone 2-0 Yes 1{tbl} QD Take 1 Keisha ey HCl 50 MG 4-18 tablet by Seybo ld oral Tablet 00:00: mouth - 00 nightly as Externa needed l Trazodone 2-0 Yes 1{tbl} QD Take 1 Keisha ey HCl 50 MG 4-18 tablet by Seybo ld oral Tablet 00:00: mouth - 00 nightly as Externa needed l Alprazolam 2-0 Yes .5mg QD Take 0.5 Dre sey [...] 00 daily as Externa needed l Alprazolam 2021-0 Yes .5mg QD Take 0.5 Dre sey 0.5 MG oral 4-04 mg by Seybold Tablet 00:00: mouth - 00 daily as Externa needed l Alprazolam 2021-0 Yes .5mg QD Take 0.5 Dre sey 0.5 MG oral 4-04 mg by Seybold Tablet 00:00: mouth - 00 daily as Externa needed l Alprazolam 2021-0 Yes .5mg QD Take 0.5 Dre sey 0.5 MG oral 4-04 mg by Seybold Tablet 00:00: mouth - 00 daily as Externa needed l Alprazolam 2021-0 Yes .5mg QD Take 0.5 Dre sey 0.5 MG oral 4-04 mg by Seybold Tablet 00:00: mouth - 00 daily as Externa needed l Alprazolam 2021-0 Yes .5mg QD Take 1 Kelse y 0.5 MG oral 4-04 tablet Seybol d Tablet 00:00: (0.5 mg - 00 total) by Externa mouth l daily as needed Alprazolam 2021-0 Yes .5mg QD Take 1 Kelse y 0.5 MG oral 4-04 tablet Seybol d Tablet 00:00: (0.5 mg - 00 total) by Externa mouth l daily as needed Alprazolam 2021-0 Yes .5mg QD Take 0.5 Dre sey 0.5 MG oral 4-04 mg by Seybold Tablet 00:00: mouth - 00 daily as Externa needed l Atorvastati Atorvastati 0 No 1{table QD Atorvastat n Calcium n Calcium 3-23 t} in Calcium 40 MG 40 MG 00:00: 40 MG 00 Nitrofurant 2021-0 Yes [id number] 100mg Take 1 Kateryna oin Monohyd 1-20 capsule Seybo ld Macro 100 00:00: (100 mg - MG oral 00 total) by Externa Capsule mouth 2 l times daily Nitrofurant 2021-0 Yes [id number] 100mg Take 1 Kateryna oin Monohyd 1-20 capsule Seybo ld Macro 100 00:00: (100 mg - MG oral 00 total) by Externa Capsule mouth 2 l times daily Nitrofurant 2022-0 Yes [id number] 100mg Take 1 Kateryna oin Monohyd 1-20 capsule Seybo ld Macro 100 00:00: (100 mg - MG oral 00 total) by Externa Capsule mouth 2 l times daily Nitrofurant 0 3- No [id number] 100mg Take 1 Kateryna oin Monohyd 1-20 01-18 capsule Seyb old Macro 100 00:00: 00:00 (100 mg - MG oral 00 :00 total) by Externa Capsule mouth 2 l times daily Aspirin 0 Yes 1{tbl} Take 1 Kateryna (Aspir-Low) 1-17 tablet by Sey bold 81 MG oral 11:06: mouth Tablet 52 Delayed Response Bupropion Yes every 12 Keisha ey HCL XL 150 1-17 hours Seybold MG OR TB24 11:06: 52 Tizanidine Yes 1{tbl} Take 1 Dre sey HCl 4 MG 1-17 tablet by Seybol d oral Tablet 11:06: mouth at 52 bedtime Metformin Yes 1000mg Take 1,000 Kateryna HCl 1000 MG 1-17 mg by Seybold oral Tablet 11:06: mouth 2 52 times daily (with meals) Gabapentin Yes 600mg Take 600 Ke lsey 600 MG oral 1-17 mg by Seybold Tablet 11:06: mouth 3 52 times daily Albuterol Yes [id number] 2{puff} Q.25D Inhale 2 Kateryna HFA 108 (90 1-17 puffs into Se ybold Base) 00:00: the lungs - MCG/ACT IN 00 every 6 Popcorn Vendor a AERS hours as l needed for wheezing Albuterol Yes [id number] 2{puff} Q.25D Inhale 2 Kateryna HFA 108 (90 1-17 puffs into Se ybold Base) 00:00: the lungs - MCG/ACT IN 00 every 6 [employer] a AERS hours as l needed for wheezing Albuterol Yes [id number] 2{puff} Q.25D Inhale 2 Kateryna HFA 108 (90 1-17 puffs into Se ybold Base) 00:00: the lungs - MCG/ACT IN 00 every 6 [employer]endor a AERS hours as l needed for wheezing Albuterol Yes [id number] 2{puff} Q.25D Inhale 2 Kateryna HFA 108 (90 1-17 puffs into Se ybold Base) 00:00: the lungs - MCG/ACT IN 00 every 6 [employer]endor a AERS hours as l needed for wheezing Albuterol 0 Yes [id number] 2{puff} Q.25D Inhale 2 Kateryna HFA 108 (90 1-17 puffs into Se ybold Base) 00:00: the lungs - MCG/ACT IN 00 every 6 [employer] a AERS hours as l needed for wheezing Albuterol 0 Yes [id number] 2{puff} Q6H Inhale 2 Kateryna HFA 108 (90 1-17 puffs into Se ybold Base) 00:00: the lungs MCG/ACT IN 00 every 6 AERS hours as needed for wheezing Albuterol Yes [id number] 2{puff} Q.25D Inhale 2 Kateryna HFA 108 (90 1-17 puffs into Se ybold Base) 00:00: the lungs - MCG/ACT IN 00 every 6 [employer]endor a AERS hours as l needed for [...] Exte rna Patch HOURS OFF l Lidocaine 2022-0 Yes USE Kateryna Pain Relief 1-05 DIRECTED Seyb old 4 % apply 00:00: 12 HOURS - externally 00 ON AND 12 Exte rna Patch HOURS OFF l Lidocaine 2022-0 Yes USE Kateryna Pain Relief 1-05 DIRECTED Seyb old 4 % apply 00:00: 12 HOURS externally 00 ON AND 12 Patch HOURS OFF Lidocaine 2022-0 Yes USE Kateryna Pain Relief 1-05 DIRECTED Seyb old 4 % apply 00:00: 12 HOURS - externally 00 ON AND 12 Exte rna Patch HOURS OFF l Lidocaine 2022-0 Yes USE Kateryna Pain Relief 1-05 DIRECTED Seyb old 4 % apply 00:00: 12 HOURS - externally 00 ON AND 12 Exte rna Patch HOURS OFF l Lidocaine 2022-0 Yes USE Kateryna Pain Relief 1-05 DIRECTED Seyb old 4 % apply 00:00: 12 HOURS - externally 00 ON AND 12 Exte rna Patch HOURS OFF l Lidocaine 0 Yes USE Kateryna Pain Relief 1-05 DIRECTED Seyb old 4 % apply 00:00: 12 HOURS - externally 00 ON AND 12 Exte rna Patch HOURS OFF l Lidocaine 0 Yes USE Kateryna Pain Relief 1-05 DIRECTED Seyb old 4 % apply 00:00: 12 HOURS - externally 00 ON AND 12 Exte rna Patch HOURS OFF l Lidocaine 0 Yes USE Kateryna Pain Relief 1-05 DIRECTED Seyb old 4 % apply 00:00: 12 HOURS - externally 00 ON AND 12 Exte rna Patch HOURS OFF l Lidocaine 0 Yes USE Kateryna Pain Relief 1-05 DIRECTED Seyb old 4 % apply 00:00: 12 HOURS - externally 00 ON AND 12 Exte rna Patch HOURS OFF l Metoprolol 2020-2021- No 50mg Take 50 mg Kateryna Tartrate 50 2-15 -17 by mouth 2 S eybold MG oral 00:00: 00:00 times Tablet 00 :00 daily FOR 90 DAYS Doxepin HCl 2020- Yes Kateryna 50 MG oral 1-27 Seybold Capsule 00:00: - 00 Externa l Doxepin HCl 2020-1 Yes Kateryna 50 MG oral 1-27 Seybold Capsule 00:00: - 00 Externa l Doxepin HCl 2020-1 Yes Kateryna 50 MG oral 1-27 Seybold Capsule 00:00: 00 Doxepin HCl 2020-1 Yes Kateryna 50 MG oral 1-27 Seybold Capsule 00:00: - 00 Externa l Doxepin HCl 1 3- No Kelse y 50 MG oral 1-27 -18 Seybold Capsule 00:00: 00:00 - 00 :00 [...] CR 00 bedtime Exter na l Zolpidem Yes 12.5mg Take 12.5 Ke lsey Tartrate 4-12 mg by Seybold 12.5 MG 00:00: mouth at oral Tab CR 00 bedtime Zolpidem 0 Yes 12.5mg Take 12.5 Ke lsey Tartrate 4-12 mg by Seybold 12.5 MG 00:00: mouth at - oral Tab CR 00 bedtime Exter na l Zolpidem 2022- No 12.5mg Take 12.5 K elsey Tartrate 4-12 01-18 mg by Seybold 12.5 MG 00:00: 00:00 mouth at - oral Tab CR 00 :00 bedtime Exter na l Lidocaine 5 Yes APPLY Kelse y % apply 4-02 EXTERNALLY Seybol d externally 00:00: TO LOWER - Ointment 00 BACK PAIN Popcorn Vendor a SENSITIVE l AREA TWICE A DAY NEEDED Lidocaine 5 Yes APPLY Kelse y % apply 4-02 EXTERNALLY Seybol d externally 00:00: TO LOWER - Ointment 00 BACK PAIN [employer] a SENSITIVE l AREA TWICE A DAY NEEDED Lidocaine 5 2020-0 Yes APPLY Kelse y % apply 4-02 EXTERNALLY Seybol d externally 00:00: TO LOWER Ointment 00 BACK PAIN SENSITIVE AREA TWICE A DAY NEEDED Lidocaine 5 2020-0 Yes APPLY Kelse y % apply 4-02 EXTERNALLY Seybol d externally 00:00: TO LOWER - Ointment 00 BACK PAIN [employer] a SENSITIVE l AREA TWICE A DAY NEEDED Lidocaine 5 0 2022- No APPLY Keisha ey % apply 4-02 18 EXTERNALLY Seybo ld externally 00:00: 00:00 TO LOWER - Ointment 00 :00 BACK PAIN [employer] a SENSITIVE l AREA TWICE A DAY NEEDED HYDROcodone Yes TAKE 1 Keisha ey -Acetaminop 3-24 TABLET BY Rosalba siddiqi ([address]) 00:00: MOUTH - 5-325 MG 00 TWICE Externa oral Tablet DAILY l NEEDED FOR 15 DAYS HYDROcodone Yes TAKE 1 Keisha ey -Acetaminop 3-24 TABLET BY Rosalba siddiqi ([employer]) 00:00: MOUTH - 5-325 MG 00 TWICE Externa oral Tablet DAILY l NEEDED FOR 15 DAYS HYDROcodone Yes TAKE 1 Keisha ey -Acetaminop 3-24 TABLET BY Rosalba siddiqi ([address]) 00:00: MOUTH 5-325 MG 00 TWICE oral Tablet DAILY NEEDED FOR 15 DAYS HYDROcodone Yes TAKE 1 Keisha ey -Acetaminop 3-24 TABLET BY Rosalba siddiqi ([address]) 00:00: MOUTH - 5-325 MG 00 TWICE Externa oral Tablet DAILY l NEEDED FOR 15 DAYS HYDROcodone 2022- No TAKE 1 Dre sey -Acetaminop 3-24 01-18 TABLET BY Se oliverio siddiqi ([address]) 00:00: 00:00 MOUTH - 5-325 MG 00 :00 TWICE Externa oral Tablet DAILY l NEEDED FOR 15 DAYS Simvastatin Yes every 24 Ke lsey 40 MG [...] Name Name Influenza Virus 2022-09-04 Completed Kateryna duron Vaccine, Quad, Egg 00:00:00 - Exte rnal Free Influenza Virus 2022-09-04 Completed Kateryna duron Vaccine, Quad, Egg 00:00:00 - Exte rnal Free Influenza Virus 2022-09-04 Gaudencio duron Vaccine, Quad, Egg 00:00:00 - Exte rnal Free Influenza Virus 2022-09-04 Gaudencio duron Vaccine, Quad, Egg 00:00:00 - Exte rnal [...] Protein, Pf Covid-19 Vaccine 2021-10-19 Completed Kateryna Pacea (Spikevax), 00:00:00 - Ext ernal Mrna-lnp, Tito Protein, Pf Covid-19 Vaccine 2021-10-19 Completed Kateryna Pacea (Spikevax), 00:00:00 - Ext ernal Mrna-lnp, Tito Protein, Pf Covid-19 Vaccine 2021-10-19 Completed Kateryna fair Moderna (Spikevax), 00:00:00 - Ext ernal Mrna-lnp, Tito Protein, Pf Covid-19 Vaccine 2021-10-19 Completed Kateryna fair Moderna (Spikevax), 00:00:00 - Ext ernal Mrna-lnp, Tito Protein, Pf Covid-19 Vaccine 2021-10-19 Completed Kateryna fair Moderna (Spikevax), 00:00:00 - Ext ernal Mrna-lnp, Tito Protein, Pf Influenza Virus 2021-07-20 Completed Kateryna duron Vaccine, Unspecified 00:00:00 - Ex ternal Formulation [...] [facility] - Vaccine Vaccine 11:49:00 [facility] Covid-19 Vaccine 2021-03-09 Completed Kateryna Birch eyloki Moderna (Spikevax), 00:00:00 - Ext ernal Mrna-lnp, Tito Protein, Pf Covid-19 Vaccine 2021-03-09 Completed Kateryna Birch eybold Moderna (Spikevax), 00:00:00 - Ext ernal Mrna-lnp, Tito Protein, Pf Covid-19 Vaccine 2021-03-09 Completed Kateryna fair Moderna (Spikevax), 00:00:00 - Ext ernal Mrna-lnp, Tito Protein, Pf Covid-19 Vaccine 2021-03-09 Completed Kateryna Birch eyhemalld Moderna (Spikevax), 00:00:00 - Ext ernal Mrna-lnp, Tito Protein, Pf Covid-19 Vaccine 2021-03-09 Completed Kateryna Birch eybold Moderna (Spikevax), 00:00:00 - Ext ernal Mrna-lnp, Tito Protein, Pf Covid-19 Vaccine 2021-03-09 Completed Kateryna Birch eyloki Moderna (Spikevax), 00:00:00 [...] [facility] - Vaccine Vaccine 11:48:00 [facility] Covid-19 Vaccine 2021-02-07 Completed Kateryna fair Moderna [...] Pf Covid-19 Vaccine 2021-02-07 Completed Kateryna Birch eybokory Moderna (Spikevax), 00:00:00 - Ext ernal Mrna-lnp, [...] Tito Protein, Pf Covid-19 Vaccine 2021-02-07 Completed Ktaeryna S eybold Moderna (Spikevax), 00:00:00 - Ext ernal Mrna-lnp, Tito Protein, Pf Afluria Afluria 2021-01-08 Completed [facility] - 11:48:00 [facility] Influenza, Seasonal, 2021-01-08 Completed Keisha ey Seybold [...] Name Observation Time Observation Value Comments Source Systolic blood 2023-07-01 19:18:00 106 mm[Hg] Kateryna Jenkinsybold - pressure External Diastolic blood 2023-07-01 19:18:00 68 mm[Hg] Allison Rojoold - pressure External Heart rate 2023-07-01 19:18:00 64 /min Kateryna caibold - External Body temperature 2023-07-01 19:18:00 36.44 Lselie Keisha ey Seybold - External Respiratory rate 2023-07-01 19:18:00 16 /min Keisha ey Seybold - External Body height 2023-07-01 19:18:00 162.6 cm Kateryna Birch eybold - External Body weight 2023-07-01 19:18:00 107.049 kg Kateryna S eybold - External BMI 2023-07-01 19:18:00 40.51 kg/m2 Kateryna S eybold - External Oxygen saturation in 2023-07-01 19:18:00 97 /min Kateryna Seybold - Arterial blood by External Pulse oximetry Body height 2023-03-07 16:34:00 162.6 cm Kateryna Birch eybold - External Body weight 2023-03-07 16:34:00 101.606 kg Kateryna S eybold - External BMI 2023-03-07 16:34:00 38.45 kg/m2 Kateryna S eybold - External Systolic blood 2023-02-25 18:28:00 113 mm[Hg] Kateryna Seybold - pressure External Diastolic blood 2023-02-25 18:28:00 77 mm[Hg] Allison y Seybold - pressure External Heart rate 2023-02-25 18:28:00 64 /min Kateryna S eybold - External Body temperature 2023-02-25 18:28:00 [...] Body height 2022-12-19 15:30:00 162.6 cm Kateryna Birch eybold - External Body weight 2022-12-19 15:30:00 95.255 kg Kateryna Birch eybold - External BMI 2022-12-19 15:30:00 36.05 kg/m2 Kateryna S eybold - External Systolic blood 2022-11-27 19:13:00 122 mm[Hg] Kateryna Seybold - pressure External Diastolic blood 2022-11-27 19:13:00 83 mm[Hg] Kelse y Seybold - pressure External Heart rate 2022-11-27 19:13:00 64 /min Kateryna S eybold - External Body temperature 2022-11-27 19:13:00 36.56 Leslie Keisha ey Seybold - External Respiratory rate 2022-11-27 19:13:00 14 /min Keisha ey Seybold - External Body height 2022-11-27 19:13:00 162.6 cm Kateryna S eybold - External Body weight 2022-11-27 19:13:00 99.791 kg Kateryna Birch eybold - External BMI 2022-11-27 19:13:00 37.76 kg/m2 Kateryna Birch eybold - External Oxygen saturation in 2022-11-27 19:13:00 99 /min Kateryna Jenkinsediedayanna - Arterial blood by External Pulse oximetry Body temperature 2022-09-25 14:59:00 37.06 Leslie Keisha ey Seybold - External Respiratory rate 2022-09-25 14:59:00 18 /min Keisha ey Seybold - External Body height 2022-09-25 14:59:00 162.6 cm Kateryna S eybold - External Body weight 2022-09-25 14:59:00 98.884 kg Kateryna S eybold - External BMI 2022-09-25 14:59:00 37.42 kg/m2 Kateryna S eybold - External Systolic blood 2022-09-25 14:59:00 110 mm[Hg] Kateryna Seybold - pressure External Diastolic blood 2022-09-25 14:59:00 74 mm[Hg] Drese y Seybold - pressure External Heart rate 2022-09-25 14:59:00 67 /min Kateryna S eybold - External Systolic blood [...] External BMI 2022-09-09 14:27:00 37.93 kg/m2 Kateryna Birch eybold - External Oxygen saturation in 2022-09-09 14:27:00 99 /min Kateryna Gauthier - Arterial blood by External Pulse oximetry Systolic blood 2021-11-26 16:51:00 114 mm[Hg] Kateryna Seybold pressure Diastolic blood 2021-11-26 16:51:00 76 mm[Hg] Kelse y Seybold pressure Heart rate 2021-11-26 16:51:00 80 /min Kateryna Birch eybold Body temperature 2021-11-26 16:51:00 35.78 Leslie Keisha ey Seybold Respiratory rate 2021-11-26 16:51:00 16 /min Keisha ey Seybold Body height 2021-11-26 16:51:00 162.6 cm Kateryna Birch eybold Body weight 2021-11-26 16:51:00 115.667 kg Kateryna Birch eybold BMI 2021-11-26 16:51:00 43.77 kg/m2 Kateryna Birch eybold Procedures Procedure Date / Time Performed Performing Clinician Sour e PELVIS 2022-12-19 16:47:51 Gus Neri ld - External Encounters Start End Encounter Admission Attending Care Care Encounter Source Date/Time Date/Time Type Type Clinicians Facility Department ID 2023-03-24 [facility] [id number] Common 15:49:01 Darius [id number] [facility] 2023-03-11 Outpatient [place], STLMLC STLMLC [id number] Common 09:16:01 Darius [id number] [facility] 2022-08-15 Outpatient [place], STLMLC STLMLC [id number] Common 09:14:03 Darius [id number] [facility] 2022-06-18 Outpatient [place], STLMLC STLMLC [id number] Common 08:34:02 Darius [id number] [facility] 2022-03-12 Outpatient Wing, STLMLC STLMLC [id number] Common 16:48:01 Avnee [facility] 2022-02-27 Outpatient Wing, STLMLC STLMLC [id number] Common 09:15:02 Avnee [facility] 2022-02-26 Outpatient Wing, STLMLC STLMLC [id number] Common 13:41:03 Avnee [facility] 2022-02-12 Outpatient Wing, STLMLC STLMLC [id number] Common 14:26:01 Avnee [facility] 2022-02-08 Outpatient Wing, STLMLC STLMLC [id number] Common 14:54:01 Avnee [facility] 2022-01-30 Outpatient Wing, STLMLC STLMLC [id number] Common 07:54:01 Avnee [facility] 2022-01-28 Outpatient Wing, STLMLC STLMLC [id number] Common 10:38:01 Avnee [facility] 2022-01-21 Outpatient Wing, STLMLC STLMLC [id number] Common 15:25:01 Avnee [facility] 2022-01-15 Outpatient [place], STLMLC STLMLC [id number] Common 09:32:04 Avnee [facility] 2022-01-14 Out[facility] [id number] Common 10:53:02 Avnee [facility] 2022-01-11 Out[facility], [facility] [id number] Common 15:37:01 Avnee [facility] 2021-12-05 Outpatient Wing, [facility] [id number] Common 14:28:58 Avnee [facility] 2021-12-05 Outpatient Wing, [facility] [id number] Common 14:24:55 Avnee [id number] [facility] 2021-12-05 Outpatient Wign, [facility] [id number] Common 14:21:24 Avnee [id number] [facility] 2024-01-14 2024-01-14 Outpatient MAXKATERYNA DURÁN [id number] Kateryna 16:00:00 16:00:00 DARIUSZ Seybol d 2023-09-24 2023-09-24 Outpatient PREZAKATERYNA Birch [id number] Kateryna 10:15:00 10:15:00 GEORGINA Seybol d 2023-08-19 2023-08-19 Outpatient KATERYNA MITCHELL [id number] Kateryna 10:30:00 10:30:00 Seybol d 2023-08-19 2023-08-19 Outpatient KATERYNA MITCHELL [id number] Kateryna 09:30:00 09:30:00 Seybol d 2023-08-19 2023-08-19 Outpatient KATERYNA MITCHELL [id number] Kateryna 09:00:00 09:00:00 Seybol d 2023-08-19 2023-08-19 Outpatient KATERYNA MITCHELL [id number] Kateryna 08:00:00 08:00:00 Seybol d 2023-08-07 2023-08-07 Outpatient ZEYADKATERYNA MEZA [id number] Kateryna 11:00:00 11:00:00 ATASU Seybol d 2023-08-01 2023-08-01 Outpatient KATERYNA MITCHELL [id number] Kateryna 12:30:00 12:30:00 Seybol d 2023-07-24 2023-07-24 Outpatient KATERYNA ASTORGA [id number] Kateryna 15:00:00 15:00:00 ABHAY Seybo ld 2023-07-24 2023-07-24 Outpatient LAB45 KATERYNA MITCHELL [id number] Kateryna 09:45:00 09:45:00 Seybol d 2023-07-24 2023-07-24 Outpatient MAXKATERYNA [id number] Kateryna 08:30:00 08:30:00 DARIUSZ Seybol d 2023-07-23 2023-07-23 Outpatient SFA SFA [id number] Dave 11:23:53 11:23:53 0913 F Shamar 2023-07-17 2023-07-17 Outpatient KATERYNA GALLO [id number] Kateryna 00:00:00 00:00:00 DARIUS Seybol d 2023-07-12 2023-07-12 Outpatient KATERYNA GALLO [id number] Kateryna 00:00:00 00:00:00 DARIUS Seybol d 2023-07-10 2023-07-10 Outpatient KATERYNA JEFFERS [id number] Kateryna 13:15:00 13:15:00 ATASU Seybol d 2023-07-10 2023-07-10 Outpatient 39, HOLTER KATERYNA MITCHELL [id number] Kateryna 13:00:00 13:00:00 Seybol d 2023-07-09 2023-07-09 Outpatient SFA SFA [id number] Dave 11:37:42 11:37:42 0830 F Hsamar 2023-07-03 2023-07-03 Outpatient KATERYNA FOSTER [id number] Kateryna 00:00:00 00:00:00 GEORGINA Seybol d 2023-07-03 2023-07-03 Outpatient YESSY MITCHELL [id number] Kateryna 00:00:00 00:00:00 MD QUE Seybol d 2023-07-02 2023-07-02 Outpatient KATERYNA FOSTER [id number] Kateryna 00:00:00 00:00:00 GEORGINA Seybol d 2023-07-01 2023-07-01 Outpatient LAB90 KATERYNA MITCHELL [id number] Kateryna 14:45:00 14:45:00 Seybol d 2023-07-01 2023-07-01 Outpatient EVANGELISTKATERYNA Birch [id number] Kateryna 14:15:00 14:15:00 GEORGINA Seybol d 2023-07-01 2023-07-01 Outpatient KATERYNA GALLO [id number] Kateryna 00:00:00 00:00:00 DARIUS Seybol d 2023-06-27 2023-06-27 Outpatient KATERYNA FOSTER [id number] [place] 13:45:00 13:45:00 GEORGINA Seybol d 2023-06-26 2023-06-26 Outpatient SFA SFA [id number] Dave 09:07:56 09:07:56 0817 F Montgomery 2023-06-24 2023-06-24 Outpatient SFA SFA [id number] Dave 08:21:08 08:21:08 0815 F Shamar 2023-06-23 2023-06-23 Outpatient KATERYNA MITCHELL [id number] [place] 00:00:00 00:00:00 Seybol d 2023-06-23 2023-06-23 Outpatient CRISTIAN KATERYNA MITCHELL [id number] [place] 00:00:00 00:00:00 GEORGINA Seybol d 2023-06-23 2023-06-23 Outpatient KATERYNA MITCHELL [id number] [place] 00:00:00 00:00:00 Seybol d 2023-06-12 2023-06-12 Outpatient SFA SFA [id number] Dave 13:39:43 13:39:43 [id number] F Shamar 2023-06-10 2023-06-10 Outpatient SFA SFA [id number] Dave 08:22:41 08:22:41 0801 F Shamar 2023-05-28 2023-05-28 Outpatient GUS NERI [id number] [place] 00:00:00 00:00:00 Seybol d 2023-05-28 2023-05-28 Outpatient KATERYNA GALLO [id number] [place] 00:00:00 00:00:00 DARIUS Seybol d 2023-05-27 2023-05-27 Outpatient SFA SFA [id number] Dave 11:07:00 11:07:00 0718 F Shamar 2023-05-26 2023-05-26 Outpatient PREZAKATERYNA Birch [id number] [place] 00:00:00 00:00:00 GEORGINA Seybol d 2023-05-22 2023-05-22 Outpatient SFA SFA [id number] Dave 10:41:13 10:41:13 0713 F Shamar 2023-05-21 2023-05-21 Outpatient PREKATERYNA LAUGHLIN [id number] [place] 00:00:00 00:00:00 GEORGINA Seybol d 2023-05-21 2023-05-21 Outpatient PREKATERYNA LAUGHLIN [id number] [place] 00:00:00 00:00:00 GEORGINA Seybol d 2023-05-20 2023-05-20 Outpatient PREZASKATERYNA [id number] [place] 00:00:00 00:00:00 GEORGINA Seybol d 2023-05-01 2023-05-01 Outpatient PREKATERYNA LAUGHLIN [id number] [place] 00:00:00 00:00:00 GEORGINA Seybol d 2023-04-30 2023-04-30 Outpatient LAB90 KATERYNA MITCHELL [id number] [place] 15:35:00 15:35:00 Seybol d 2023-04-30 2023-04-[address] [facility] KATERYNA MITCHELL [id number] [place] 14:30:00 14:30:00 Seybol d 2023-04-29 2023-04-29 Outpatient PREZAKATERYNA Birch [id number] [place] 00:00:00 00:00:00 GEORGINA Seybol d 2023-04-21 2023-04-21 Outpatient NERI, GUS MITCHELL [id number] [place] 00:00:00 00:00:00 Seybol d 2023-04-16 2023-04-16 Outpatient NERI, GUS KATERYNA MITCHELL [id number] [place] 10:45:00 10:45:00 Seybol d 2023-04-09 2023-04-09 Outpatient NERI, GUS KATERYNA MITCHELL [id number] [place] 00:00:00 00:00:00 Seybol d 2023-04-03 2023-04-03 Outpatient PREZASKATERYNA [id number] [place] 00:00:00 00:00:00 GEORGINA Seybol d 2023-04-01 2023-04-01 Outpatient KATERYNA MITCHELL [id number] [place] 00:00:00 00:00:00 Seybol d 2023-04-01 2023-04-01 Outpatient KATERYNA GALLO [id number] [place] 00:00:00 00:00:00 DARIUS Seybol d 2023-03-28 2023-03-28 Outpatient KATERYNA MITCHELL [id number] [place] 00:00:00 00:00:00 Seybol d 2023-03-28 2023-03-28 Outpatient PREZASKATERYNA [id number] [place] 00:00:00 00:00:00 GEORGINA Seybol d 2023-03-26 2023-03-26 Outpatient RAMY SIDDIQUI [id number] [place] 11:30:00 11:30:00 Seybol d 2023-03-26 2023-03-26 Outpatient LAB90 KATERYNA MITCHELL [id number] [place] 11:20:00 11:20:00 Seybol d 2023-03-26 2023-03-26 Outpatient PREZASKATERYNA [id number] [place] 00:00:00 00:00:00 GEORGINA Seybol d 2023-03-24 2023-03-24 Outpatient PREZASKATERYNA [id number] [place] 00:00:00 00:00:00 GEORGINA Seybol d 2023-03-12 2023-03-12 Outpatient PREZASKATERYNA [id number] [place] 00:00:00 00:00:00 GEORGINA Seybol d 2023-03-07 2023-03-07 Outpatient NERI, GUS MITCHELL [id number] [place] 13:15:00 13:15:00 Seybol d 2023-03-07 2023-03-07 Outpatient KATERYNA CARBAJAL [id number] [place] 00:00:00 00:00:00 NEO Seybol d 2023-03-03 2023-03-03 Outpatient KATERYNA FOSTER [id number] [place] 00:00:00 00:00:00 GEORGIAN Seybol d 2023-03-03 2023-03-03 Outpatient PREKATERYNA LAUGHLIN [id number] [place] 00:00:00 00:00:00 GEORGINA Seybol d 2023-03-03 2023-03-03 Outpatient KATERYNA FOSTER [id number] [place] 00:00:00 00:00:00 GEORGINA Seybol d 2023-02-26 2023-02-26 Outpatient KATERYNA FOSTER [id number] [place] 00:00:00 00:00:00 GEORGINA Seybol d 2023-02-25 2023-02-25 Outpatient LAB90 KATERYNA MITCHELL [id number] [place] 14:00:00 14:00:00 Seybol d 2023-02-25 2023-02-25 Outpatient KATERYNA FOSTER [id number] [place] 13:30:00 13:30:00 GEORGNIA Seybol d 2023-02-25 2023-02-25 Outpatient KATERYNA MITCHELL [id number] [place] 00:00:00 00:00:00 Seybol d 2023-02-25 2023-02-25 Outpatient KATERYNA GALLO [id number] [place] 00:00:00 00:00:00 DARIUS Seybol d 2023-01-24 2023-01-24 Outpatient KATERYNA CHOI [id number] [place] 00:00:00 00:00:00 DARREL Seybol d 2023-01-21 2023-01-21 Outpatient YESSY MITCHELL [id number] [place] 00:00:00 00:00:00 MD QUE Seybol d 2023-01-20 2023-01-20 Outpatient KATERYNA MITCHELL [id number] [place] 07:30:00 07:30:00 Seybol d 2023-01-15 2023-01-15 Outpatient GUS NERI KATERYNA MITCHELL [id number] [place] 15:30:00 15:30:00 Seybol d 2023-01-13 2023-01-13 Outpatient KATERYNA MITCHELL [id number] [place] 11:15:00 11:15:00 Seybol d 2023-01-13 2023-01-13 Outpatient KATERYNA MITCHELL [id number] [place] 00:00:00 00:00:00 Seybol d 2023-01-13 2023-01-13 Outpatient KATERYNA MITCHELL [id number] [place] 00:00:00 00:00:00 Seybol d 2023-01-10 2023-01-10 Outpatient KATERYNA GALLO [id number] [place] 00:00:00 00:00:00 DARIUS Seybol d 2023-01-09 2023-01-09 Outpatient VELIA VALENZUELA [id number] [place] 11:30:00 11:30:00 Seybol d 2023-01-09 2023-01-09 Outpatient MYKATERYNAONLilly MITCHELL [id number] [place] 00:00:00 00:00:00 MD QUE Seybol d 2023-01-03 2023-01-03 Outpatient PREKATERYNA LAUGHLIN [id number] [place] 00:00:00 00:00:00 GEORGINA Seybol d 2023-01-02 2023-01-02 Outpatient LAB90 KATERYNA MITCHELL [id number] [place] 08:45:00 08:45:00 Seybol d 2023-01-02 2023-01-02 Outpatient PREKATERYNA LAUGHLIN [id number] [place] 00:00:00 00:00:00 GEORGINA Seybol d 2022-12-20 2022-12-20 Outpatient KATERYNA MITCHELL [id number] [place] 00:00:00 00:00:00 Seybol d 2022-12-19 2022-12-19 Outpatient KATERYNA CHOI [id number] [place] 14:00:00 14:00:00 DARREL Seybol d 2022-12-19 2022-12-19 Outpatient KATERYNA MITCHELL [id number] [place] 10:40:00 10:40:00 Seybol d 2022-12-19 2022-12-19 Outpatient GUS NERI KATERYNA MITCHELL [id number] [place] 08:00:00 08:00:00 Seybol d 2022-12-19 2022-12-19 Outpatient KATERYNA MITCHELL [id number] [place] 00:00:00 00:00:00 Seybol d 2022-12-12 2022-12-12 Outpatient PATENIA, KATERYNA MITCHELL [id number] [place] 09:30:00 09:30:00 DARREL Seybol d 2022-12-09 2022-12-09 Outpatient PREZAS, KATERYNA MITCHELL [id number] [place] 00:00:00 00:00:00 GEORGINA Seybol d 2022-12-05 2022-12-05 Outpatient KATERYNA FOSTER [id number] [place] 00:00:00 00:00:00 GEORGINA Seybol d 2022-11-27 2022-11-27 Outpatient PREZASKATERYNA [id number] [place] 13:30:00 13:30:00 GEORGINA Seybol d 2022-11-26 2022-11-26 Outpatient PREZAS, KATERYNA MITCHELL [id number] [place] 00:00:00 00:00:00 GEORGINA Seybol d 2022-11-19 2022-11-19 Outpatient LAB90 KATERYNA MITCHELL [id number] [place] 10:40:00 10:40:00 Seybol d 2022-11-18 2022-11-18 Outpatient SABINO, KATERYNA MITCHELL [id number] [place] 00:00:00 00:00:00 DARIUS Seybol d 2022-11-14 2022-11-14 Outpatient PREZAKATERYNA Birch [id number] [place] 11:30:00 11:30:00 GEORGINA Seybol d 2022-11-14 2022-11-14 Outpatient PREKATERYNA LAUGHLIN [id number] [place] 00:00:00 00:00:00 GEORGINA Seybol d 2022-11-13 2022-11-13 Outpatient PREZAS, KATERYNA MITCHELL [id number] [place] 00:00:00 00:00:00 GEORGINA Seybol d 2022-11-06 2022-11-06 Outpatient OU, KATERYNA MITCHELL [id number] [place] 09:15:00 09:15:00 CHRISTIANO Seyb old 2022-10-29 2022-10-29 Outpatient KATERYNA MITCHELL [id number] [place] 08:30:00 08:30:00 Seybol d 2022-10-25 2022-10-25 Outpatient KATERYNA GALLO [id number] [place] 00:00:00 00:00:00 DARIUS Seybol d 2022-09-25 2022-09-25 Outpatient KATERYNA MITCHELL [id number] [place] 10:05:00 10:05:00 Seybol d 2022-09-25 2022-09-25 Outpatient KATERYNA MITCHELL [id number] [place] 10:00:00 10:00:00 Seybol d 2022-09-25 2022-09-25 Outpatient KATERYNA MITCHELL [id number] [place] 09:55:00 09:55:00 Seybol d 2022-09-25 2022-09-25 Outpatient OU, KATERYNA MITCHELL [id number] [place] 09:00:00 09:00:00 CHRISTIANO Seyb old 2022-09-10 2022-09-10 Outpatient OU, KATERYNA MITCHELL [id number] [place] 10:00:00 10:00:00 CHRISTIANO Seyb old 2022-09-09 2022-09-09 Outpatient LAB90 KATERYNA MITCHELL [id number] [place] 10:15:00 10:15:00 Seybol d 2022-09-09 2022-09-09 Outpatient KATERYNA GALLO [id number] [place] 09:30:00 09:30:00 DARIUS Seybol d 2022-09-06 2022-09-06 Outpatient KATERYNA GALLO [id number] [place] 16:00:00 16:00:00 DARIUS Seybol d 2022-09-02 2022-09-02 Outpatient KATERYNA ROCK [id number] [place] 13:45:00 13:45:00 LATHA Seybol d 2022-08-15 2022-08-15 Outpatient KATERYNA GALLO [id number] [place] 00:00:00 00:00:00 DARIUS Seybol d 2022-07-10 2022-07-10 Outpatient KATERYNA GALLO [id number] [place] 00:00:00 00:00:00 DARIUS Seybol d 2022-07-09 2022-07-09 ambulatory STLMLC STLMLC [id number] Common 00:00:00 00:00:00 [facility] 2022-07-04 2022-07-04 ambulatory STLMLC STLMLC [id number] Common 00:00:00 00:00:00 [facility] 2022-07-03 2022-07-03 Outpatient KATERYNA GALLO [id number] [place] 00:00:00 00:00:00 DARIUS Seybol d 2022-07-02 2022-07-02 ambulatory STLMLC STLMLC [id number] Common 00:00:00 00:00:00 [facility] 2022-06-26 2022-06-26 Outpatient KATERYNA GALLO [id number] [place] 00:00:00 00:00:00 DARIUS Seybol d 2022-06-26 2022-06-26 ambulatory STLMLC STLMLC [id number] Common 00:00:00 00:00:00 [facility] 2022-06-12 2022-06-12 Outpatient KATERYNA GALLO [id number] [place] 00:00:00 00:00:00 DARIUS Seybol d 2022-06-07 2022-06-07 Outpatient LAB90 KATERYNA MITCHELL [id number] [place] 16:10:00 16:10:00 Seybol d 2022-06-07 2022-06-07 Office Ramy Gallo 1.2.840.114 [id number] [place] 15:30:00 15:45:00 Visit Darius Sparks 350.1.13.13 oliverio Lowery 1.2.7.2.686 [id number] 2022-05-15 2022-05-15 Outpatient KATERYNA GALLO [id number] [place] 00:00:00 00:00:00 ADRIUS zepeda 2022-05-10 2022-05-10 Office Ramy Gallo 1.2.840.114 [id number] [place] 15:30:00 16:00:00 Visit Darius Sparks 350.1.13.13 oliverio Lowery 1.2.7.2.686 [id number] 2022-05-08 2022-05-08 ambulatory STLMLC STLMLC [id number] Common 00:00:00 00:00:00 [facility] 2022-04-16 2022-04-16 ambulatory STLMLC STLMLC [id number] Common 00:00:00 00:00:00 [facility] 2022-04-15 2022-04-15 ambulatory STLMLC STLMLC [id number] Common 00:00:00 00:00:00 [facility] 2022-03-28 2022-03-28 ambulatory STLMLC STLMLC [id number] Common 00:00:00 00:00:00 [facility] 2022-03-21 2022-03-21 ambulatory STLMLC STLMLC [id number] Common 00:00:00 00:00:00 [facility] 2022-03-13 2022-03-13 ambulatory STLMLC STLMLC [id number] Common 00:00:00 00:00:00 [facility] 2022-03-12 2022-03-12 ambulatory STLMLC STLMLC [id number] Common 00:00:00 00:00:00 [facility] 2022-02-26 2022-02-26 ambulatory STLMLC STLMLC [id number] Common 00:00:00 00:00:00 [facility] 2022-02-26 2022-02-26 ambulatory STLMLC STLMLC [id number] Common 00:00:00 00:00:00 [facility] 2022-02-12 2022-02-12 ambulatory STLMLC STLMLC [id number] Common 00:00:00 00:00:00 [facility] 2022-02-05 2022-02-05 ambulatory STLMLC STLMLC [id number] Common 00:00:00 00:00:00 [facility] 2022-01-30 2022-01-30 ambulatory STLMLC STLMLC [id number] Common 00:00:00 00:00:00 [facility] 2022-01-30 2022-01-30 ambulatory STLMLC STLMLC [id number] Common 00:00:00 00:00:00 [facility] 2022-01-30 2022-01-30 ambulatory STLMLC STLMLC [id number] Common 00:00:00 00:00:00 [facility] 2022-01-21 2022-01-21 ambulatory STLMLC STLMLC [id number] Common 00:00:00 00:00:00 [facility] 2022-01-21 2022-01-21 ambulatory STLMLC STLMLC [id number] Common 00:00:00 00:00:00 [facility] 2022-01-21 2022-01-21 ambulatory STLMLC STLMLC [id number] Common 00:00:00 00:00:00 [facility] 2022-01-18 2022-01-18 ambulatory STLMLC STLMLC [id number] Common 00:00:00 00:00:00 [facility] 2022-01-15 2022-01-15 ambulatory STLMLC STLMLC [id number] Common 00:00:00 00:00:00 [facility] 2022-01-08 2022-01-08 Outpatient KATERYNA GALLO [id number] [place] 00:00:00 00:00:00 DARIUS zepeda 2021-12-27 2021-12-27 Outpatient KATERYNA GALLO [id number] [place] 00:00:00 00:00:00 DARIUS Rojool katelyn 2021-12-25 2021-12-25 Outpatient KATERYNA GALLO [id number] [place] 00:00:00 00:00:00 DARIUS Seybol d 2021-12-09 2021-12-09 Outpatient KATERYNA MITCHELL [id number] [place] 00:00:00 00:00:00 Seybol d 2021-11-29 2021-11-29 Outpatient KATERYNA GALLO [id number] [place] 00:00:00 00:00:00 DARIUS Seybol d 2021-11-27 2021-11-27 Outpatient LAB90 KATERYNA MITCHELL [id number] [place] 08:15:00 08:15:00 Seybol d 2021-11-27 2021-11-27 Outpatient KATERYNA GALLO [id number] [place] 00:00:00 00:00:00 DARIUS Seybol d 2021-11-27 2021-11-27 Outpatient KATERYNA MITCHELL [id number] [place] 00:00:00 00:00:00 Seybol d 2021-11-26 2021-11-26 Office SabinoRamy 1.2.840.114 [id number] [place] 10:45:00 11:15:00 Visit Darius Sparks 350.1.13.13 Se ediedayanna Sebastián 1.2.7.2.686 [id number] 2021-11-23 2021-11-23 Outpatient KATERYNA FRIEDMAN [id number] [place] 00:00:00 00:00:00 YOHAN Hdez ld 2021-11-05 2021-11-05 ambulatory STLMLC STLMLC [id number] Common 00:00:00 00:00:00 [facility] 2021-11-01 2021-11-01 ambulatory STLMLC STLMLC [id number] Common 00:00:00 00:00:00 [facility] 2021-10-29 2021-10-29 ambulatory STLMLC STLMLC [id number] Common 00:00:00 00:00:00 [facility] 2021-10-24 2021-10-24 ambulatory STLMLC STLMLC [id number] Common 00:00:00 00:00:00 [facility] 2021-10-23 2021-10-23 (TEL) STLMLC STLMLC [id number] Co mmon 00:00:00 00:00:00 [facility] 2021-10-16 2021-10-16 ambulatory STLMLC STLMLC [id number] Common 00:00:00 00:00:00 [facility] 2021-04-17 2021-04-17 Emergency E ULLOA, [facility] [id number] 12:26:00 20:09:00 MICAH 2021-02-28 2021-02-28 Emergency Elkins, [facility] 1.2.606.799 [id number] 19:00:00 20:05:00 Raul Capps 350.1.13.10 Martha 4.2.7.2.686 [place] [id number] 2021-02-28 2021-02-28 Emergency X [facility] ERT [id number] Univers 18:54:00 18:54:00 ity [facility] 2020-11-12 2020-11-12 Emergency X JUSTIN, [facility] ERT [id number] Univers 10:27:00 13:27:00 JERROD [facility] 2020-11-12 2020-11-12 Emergency X JUSTIN, [facility] ERT [id number] Univers 10:27:00 10:27:00 JERROD [facility] 2020-10-10 2020-10-10 Emergency E A[place], [facility] [id number] [facility] 13:09:00 19:20:00 LATHA 2020-06-28 2020-06-[address] [facility], [facility] 1.2.169.193 [id number] 14:56:00 17:04:00 Rafia Capps 350.1.13.10 Martha 4.2.7.2.686 [place] [id number] 2020-06-28 2020-06-28 Emergency X HEIDI, [facility] ERT [id number] Univers 14:56:00 14:56:00 RAFIA oviedo [facility] 2020-06-28 2020-06-28 Orders Doctor POE 1.2.840.114 [id number] 00:00:00 00:00:00 Only Unassigned, DESTINY 350.1.13.10 [place] [facility] 42.7.2.686 [id number] 2020-03-20 2020-03-20 Emergency Aron [facility] 1.2.840.114 [id number] 18:31:57 20:18:00 Errol Capps 350.1.13.10 [place] 4.2.7.2.686 [place] [id number] 2020-03-20 2020-03-20 Emergency X ARON [facility] ERT [id number] Univers 18:31:57 18:31:57 ERROL oviedo [facility] Results Test Description Test Time Test Comments Results Result [facility] e Comments - XR FLUOROSCOPY 2019-01-14 Name: RACHAEL OQUENDO 0-60 MIN 10:27:00 DAVID Sharp : 1960 Age/S: 58 / M [address] Unit #: [id number] Loc: [place] [address] Phys: Kevin Rollins MD Acct: [id number] Dis Date: Status: [place] [facility] [place]ONE #: [phone] Exam Date: 01/14/2019 0910 FAX #: Reason: PORT A CATH PLACEMENT EXAMS: CPT: [id number] XR FLUOROSCOPY 0-60 MIN 28489 Fluoro Time: 8 SEC DAP (Gy m2): [...] OQUENDO : 1960 Age/S: 58 / M [address] Unit #: [id number] Loc: [place] [address] Phys: Kevin Rollins MD Acct: [id number] Dis Date: Status: REG [facility] [place]ONE #: [phone] Exam Date: 01/14/2019 0910 FAX #: Reason: PORT A CATH PLACEMENT EXAMS: CPT: [id number] XR FLUOROSCOPY 0-60 MIN 55318 Fluoro Time: 8 SEC DAP (Gy m2): Air Kerma (mGy): (Continued) Technologist: Sandy Lucero, RT(R)(CT); Mary Carbajal RT(R) Trnmab Date/Time: 01/14/2019 (7309) [id number] Orig Print D/T: S: 01/14/2019 (2400) PAGE 2 Signed Report GLUCOSE BEDSIDE TESTING 2019-01-14 10:17:00 Test Item Value Reference Range Interpretation Comme nts GLUCOSE BEDSIDE TESTING (test code = GLUBED) 140 mg/dL 70-110 H - XR CHEST 1 [id number] 10:04:00 [facility] 1960 Age/S: 58 / M [address] Unit #: [id number] Loc: [place] [address] Phys: Kevin Rollins MD Acct: [id number] Dis Date: Status: [place] [facility] [place]ONE#: [phone] Exam Date: 01/14/2019 0955 FAX #: Reason: port placement EXAMS: CPT: [id number] XR CHEST 1 V 82679 Fluoro Time: DAP (Gy m2): Air Kerma (mGy): EXAM: - XR CHEST 1 V HISTORY: Port placement Location code:C3 COMPARISON: None available time of interpretation. FINDINGS: Single AP view of thechest is provided. Right IJ Port-A-Cath with tip [...] right paratracheal region could represent adenopathy, enlarged thyroidgland, vascular prominence, or underlying mass lesion. Mediastinal hematoma given recent catheter placement is not excluded particularly given the lack of prior exams to determine whether this is acuteafter port placement. Consider chest CT with IV contrast. at 1004 Reported and signed by: Gadiel Baker MD CC: Alisia SANDERS; Kevin Rollins MD PAGE 1 Signed Report Name: RACHAEL OQUENDO [place] : 1960 Age/S: 58 / M [address] Unit #: [id number] Loc: [place] [address] Phys: Kevin Rollins MD Acct: [id number] Dis Date: Status: [place] [facility] [place]ONE #: [phone] Exam Date: 01/14/2019 0955 FAX #: Reason: port placement EXAMS: CPT: [id number] XR CHEST 1 V 82523 Fluoro Time: DAP (Gy m2): Air Kerma (mGy): (Continued) Technologist: Rachael Izquierdo, RT(R)(CT); Mary Carbajal, RT(R) Trnscb Date/Time:01/14/2019 (1004) [email or web address] Orig Print D/T: S: 01/14/2019 (1007) PAGE 2 Signed ReportGLUCOSE BEDSIDE [id number] 07:20:00 Test Item Value Reference Range Interpretation Comments GLUCOSE BEDSIDE TESTING (test code 137 mg/dL 70-110 H = GLUBED) [id number] 16:52:00 RUN DATE: 01/06/19 [facility] - LAB *LIVE* PAGE 1 RUN TIME: 1652 Specimen Inquiry RUN USER: INTERFACE PATIENT: RACHAEL OQUENDO LOC: [facility] U #: [id number] AGE/SX: 58/M ROOM: [facility] RE12/31/18[facility] DR: Kevin Rolilns MD : 64 BED: 1 DIS: 01/02/19 STATUS: DIS IN TLOC: SPEC #: [id number] RECD: 01/01/19 STATUS: MARCIA REQ #: [id number] ONELIA: 12/31/[address] [facility] [address]: Kevin Rollins MD ENTERED: 01/01/19 SP TYPE: SURG OTHR DR: Shamar Abreu ORDERED: SURG PATH LVL 6 COPIES TO: Shamar Abreu [address] [place] [address] [address] [place], [place] [id number] [place] [address] [place] [address] HISTOLOGY: TISSUE ID BLK PCS CESAR LEV PROCEDURE DISPOSITION ____ ___ ___ ___ SIGMOID COLON A 1-15 1 PROCEDURES: SURG PATH LVL 6 (01/01/19) TISSUES: A. SIGMOID COLON - SIGMOID COLON AND ANASTOMATIC COLON RINGS CLINICAL HISTORY COLON RECTAL CANCER -C18.9 CPT CODES CPT CODE(S): 63363 , , , , , , FINAL DIAGNOSIS Colon, sigmoid, anastomotic donuts, partial colectomy: MODERATELY DIFFERENTIATED COLORECTAL ADENOCARCINOMA, 6 CM GREATEST DIMENSION 7 LYMPH NODES POSITIVE FOR METASTATIC CARCINOMA (/10) MARGINS NEGA TIVE CONTINUED ON NEXT PAGE RUN DATE: 01/06/19 [facility] - LAB *LIVE* PAGE 2 RUN TIME: 1652 Specimen Inquiry RUN USER: INTERFACE SPEC #: [id number] PATIENT: RACHAEL OQUENDO #[id number] (Continued)---- -------- GROSS DESCRIPTION Sigmoid colon and anastomotic colon rings. Received in formalin is a 15.5 cm in length segmentof sigmoid colon which is 4.0 cm in circumference at the proximal margin and 2.0 cm in circumferencein the distal margin. A 17.0 x 7.0 [...] A3 Entire circumference of distal margin A4-A5 [employer] Representative sections of the lesion A6 Tumor with normal mucosa of proximal marginA7 Tumor with normal mucosa of closest distal margin A8 Normal mucosa A9 [employer] Representative sections of largest anastomotic ring A10 [employer] Representative sections of second anastomotic ring A11 [employer] Representative sections of mesentery A12-A14 [employer] Representative sections of mesentery with possible matted lymph nodes A15-A20 Entire lymph nodes, one lymph node each A21 Two lymph nodes A22 Two lymph nodes, serially sectioned A23 Three lymph nodes Grossing performed at [facility] Pathology, [address] [place] [address], [address],[place] [address]. Channel Business Manager: Hany Haji M.D. MICROSCOPIC DESCRIPTION Sigmoid [...] ON NEXT PAGE RUN DATE: 01/06/19 [facility] - LAB *LIVE* PAGE 3 RUN TIME: 1652 Specimen Inquiry RUN USER: INTERFACE SPEC #: [id number] PATIENT: RACHAEL OQUENDO #[id number] (Co ntinued) MICROSCOPIC DESCRIPTION (Continued) demonstrates moderately differentiated colonic [...] nodes: pN2b Signed SIGNATURE ON Bull Azevedo 01/06/19 1652 END OF REPORT GLUCOSE BEDSIDE [id number] 17:20:00 Test Item Value Reference Range Interpretation Comments GLUCOSE BEDSIDE TESTING (test code 103 mg/dL 70-110 N = GLUBED) GLUCOSE BEDSIDE [id number] 11:28:00 Test Item Value Reference Range Interpretation Comments GLUCOSE BEDSIDE TESTING (test code = 87 mg/dL 70-110 N GLUBED) GLUCOSE BEDSIDE [id number] 07:23:00 Test Item Value Reference Range Interpretation Comments GLUCOSE BEDSIDE TESTING (test code 108 mg/dL 70-110 N = GLUBED) GLUCOSE BEDSIDE [id number] 20:29:00 Test Item Value Reference Range Interpretation Comments GLUCOSE BEDSIDE TESTING (test code = 99 mg/dL 70-110 N GLUBED) GLUCOSE BEDSIDE [id number] 16:28:00 Test Item Value Reference Range Interpretation Comments GLUCOSE BEDSIDE TESTING (test code = 84 mg/dL 70-110 N GLUBED) GLUCOSE BEDSIDE [id number] 11:30:00 Test Item Value Reference Range Interpretation Comments GLUCOSE BEDSIDE TESTING (test code 106 mg/dL 70-110 N = GLUBED) GLUCOSE BEDSIDE [id number] 07:38:00 Test Item Value Reference Range Interpretation Comments GLUCOSE BEDSIDE TESTING (test code 120 mg/dL 70-110 H = GLUBED) CBC W/AUTO [id number] 06:24:00 Test Item Value Reference Range Interpretation [...] = NO DIFF/SCN CRITERIA MDIFF) GLUCOSE BEDSIDE [id number] 21:45:00 Test Item Value Reference Range Interpretation Comments GLUCOSE BEDSIDE TESTING (test code 135 mg/dL 70-110 H = GLUBED) BASIC METABOLIC [id number] 18:20:00 Test Item Value Reference Range Interpretation [...] code = CA) 8.1 MG/DL 8.5-10.1 L [id number] 18:20:00 Test Item Value Reference Range Interpretation Comments PHOSPHOROUS (test code = PHOS) 3.2 MG/DL 2.5-4.9 N [id number] 18:20:00 Test Item Value Reference Range Interpretation Comments MAGNESIUM (test code = MAG) 1.7 MG/DL 1.8-2.4 L GLUCOSE BEDSIDE [id number] 16:54:00 Test Item Value Reference Range Interpretation Comments GLUCOSE BEDSIDE TESTING (test code 160 mg/dL 70-110 H = GLUBED) GLUCOSE BEDSIDE [id number] 14:29:00 Test Item Value Reference Range Interpretation Comments GLUCOSE BEDSIDE TESTING (test code 136 mg/dL 70-110 H = GLUBED) GLUCOSE BEDSIDE [id number] 07:31:00 Test Item Value Reference Range Interpretation Comments GLUCOSE BEDSIDE TESTING (test code 125 mg/dL 70-110 H = GLUBED) Notes Date/Time Note Provider Source 2023-07-01 Formatting of this note might be differe nt from the original. Saumya Flores 14:20:33-00:00 Patient is here for 4 month follow up. [facility] Electronically signed by Saumya Amos at 2022 2:20 PM CDT 2019-01-18 [id number] [facility] 12:58:00-00:00 [facility] [address] [place] [address] PATIENT NAME: RACHAEL OQUENDO ADMIT DATE: 01/14/19 ACCOUNT NO: [id number] ROOM NO: AGE: 58 REPORT TYPE: OPERATIVE [...] and fluoroscopic interpretation. SURGEON: Kevin Rollins MD. TERMITE CONTROL REPRESENTATIVE: None. ANESTHESIA: General, LMA plus local. INDICATIONS [...] immediate complications. SPECIMENS REMOVED: None. IMPLANTS: An 8-German PowerPort catheter. DRAINS: None. ESTIMATED BLOOD LOSS: Less than 10 mL. PATIENT NAME: RACHAEL OQUENDO 2 DISPOSITION: At the conclusion of the case, the patient was awakened from anesthesia and LMA was remov ed. The patient was transferred to the PACU in fair condition for a postoperative chest x-ray to be discharged home per protocol. Dictated By: Kevin Rollins MD WT: OP:JHOAN/GOVIND/REBECCA Conf#: [id number]/DID#: [id number] Authenticated by Kevin Rollins MD On 9 01:34:33 PM at 1334 PATIENT NAME: RACHAEL OQUENDO 2019-01-14 [facility] 17:04:00-00:00 [facility] ([facility]) Post Anesthesia Evaluation REPORT#:[id number] REPORT STATUS: Signed DATE:01/14/19 TIME:1704 PATIENT: RACHAEL OQUENDO UNIT #: [id number] ROOM/BED: : 62 AGE: 58 SEX: M ATTEND: Christian Rollins MD ADM AUTHOR: Filomena Carvalho MD * ALL edits or amendments must be made on the [employer] document * General Post-op: post surgery rounds [...] 1103 59 18 121/73 97 Room air / 1036 36.4 54 16 109/61 96 Room air / 1035 36.2 56 16 109/66 96 Room air /07 1020 59 16 110/64 98 Room air /07 1015 56 16 116/66 100 03/07 1010 57 13 114/66 100 Room air 03/07 1005 58 13 110/67 100 Simple 10.750118 mask 03/07 1000 57 12 109/61 100 Simple 10.463105 mask 03/07 0955 61 15 107/61 100 Simple 10.953542 mask 03/07 0950 54 11 104/56 99 Simple 10.216734 mask 03/07 0946 Simple 10.199918 mask 03/07 0945 55 11 111/55 99 03/07 0940 36.3 54 12 124/65 99 Simple 10.21713 0 mask 03/07 0711 36.5 54 18 [...] MD on 05/28 at 1705 RPT #: [id number] END OF REPORT 2019-01-14 [facility] 09:51:00-00:00 [facility] ([facility]) Brief Discharge Note w/Med Rec REPORT#:[id number] REPORT STATUS: Signed DATE:01/14/19 TIME:950 PATIENT: RACHAEL OQUENDO UNIT #: [id number] ROOM/BED: : 62 AGE: 58 SEX: M ATTEND: Christian Rollins MD ADM AUTHOR: Kevin Rollins MD * ALL edits or amendments must be made on the [employer]/computer document * Med Rec Med Rec Discharge [...] Simple mask 01/14 946 O2 Flow Rate 10.656489 01/14 946 Pulse Ox 96 01/14 711 [...] on 0 01/14/19 at 0953 RPT #: [id number] END OF REPORT 2019-01-14 [facility] 09:43:00-00:00 [facility] ([facility]) Bedside Procedure Note REPORT#:[id number] REPORT STATUS: Signed DATE:01/14/19 TIME:942 PATIENT: RACHAEL OQUENDO UNIT #: [id number] ROOM/BED: : 62 AGE: 58 SEX: M ATTEND: Perico Rollins MD ADM AUTHOR: Kevin Rollins MD * ALL edits or amendments must be made on the el [employer]/computer document * Bedside Procedure Note Bedside Procedure Note Start date: 01/14/19 Start time: 0845 Pre-procedure diagnosis: Need for long-term centeral venous access Post-procedure diagnosis: Same as above s/p right IJ port-a-cath placement Procedure performed: Right internal jugu lar port-a-cath placement Fluoroscopic interpretation Performed by: Dr. Kevin Rollins MD Airplane Technician(s): none Indications: 58 yo M with stage [...] on 0 01/14/19 at 0947 RPT #: [id number] END OF REPORT 2019-01-01 [facility] 22:43:00-00:00 [facility] ([facility]) Brief Discharge Note w/Med Rec REPORT#:[id number] REPORT STATUS: Signed DATE:01/01/19 TIME:2242 PATIENT: RACHAEL OQUENDO UNIT #: [id number] ROOM/BED: [facility] : 62 AGE: 58 SEX: M ATTEND: Christian Rollins MD ADM AUTHOR: Kevin Rollins MD * ALL edits or amendments must be made on the [facility] document * Med Rec Med Rec Discharge [...] Room air 01/02 161 Temp 98.6 01/02 1619 Pulse 69 01/02 1619 Resp 18 01/02 1619 O2 Flow Rate 10.254589 12/31 1430 Brief Discharge Note w/Med Rec [...] on 0 01/05/19 at 1112 RPT #: [id number] END OF REPORT 2019-01-01 [facility] 13:36:00-00:00 [facility] ([facility] General Surgery Progress Note REPORT#:[id number] REPORT STATUS: Signed DATE:01/01/19 TIME:1336 PATIENT: RACHAEL OQUENDO UNIT #: [id number] ROOM/BED: S215-1 : 64 AGE: 58 SEX: M ATTEND: Christian Rollins MD ADM AUTHOR: Kevin Rollins MD * ALL edits or amendments must be made on the el [employer] document * General Date of surgery: 12/31/18 [...] Resp 18 01/01 1109 O2 Flow Rate 10.063734 12/31 1430 Vital Signs Date Temp Pulse Resp B/P B/P Mean Pulse Ox FiO 2 12/31-01/01 97.5-99.6 57-80 9-19 101-151/61-94 74.5-87.9 94-100 [...] MG DAILY PO Lactated Ringer's 1,000 ML .[id number] IV Enoxaparin Sodium 40 MG Q24H SUBQ Influenza Virus Vaccine 60 MCG ASDIR IM Hydromorphone HCl 0.2 MG Q3H PRN PRN IV Lactated Ringer's 1,000 ML .[id number] IV (DC) Ondansetron HCl 4 MG Q6H [...] - Male: no boss Extremities: moves all Neuro/RESEARCH STATISTICIAN: alert, normal speech Skin: dry, intact, normal [...] (Auto) (20.5 - 51.1 %) 17.5 L Navarro % (Auto) (1.7 - 9.3 %) 9.3 Eos % (Auto) (0.0 - 6.0 %) 0.1 Baso % (Auto) (0.0 - 2.0 %) 0.1 Neut # (Auto) (1.8 - 7.6 K/mm3) 7.73 H Lymph # (Auto) (0.6 - 3.0 K/mm3) 1.9 Navarro # (Auto) (0.2 - 1.5 K/mm3) 1.0 [...] Kevin Rollins MD on 0 01/01/19 at 134 RPT #: [id number] END OF REPORT 2018-12-31 [id number] [facility] 15:07:00-00:[address] [address] PATIENT NAME: RACHAEL OQUENDO ADMIT DATE: 12/31/18 ACCOUNT NO: [id number] ROOM NO: [facility] AGE: 58 REPORT TYPE: OPERATIVE REPORT SEX: M ADMITTING PHYSICIAN: Kevin Rollins MD ATTENDING PHYSICIAN: Kevin Rollins MD OPERATION DATE: 12/31/2018 PREOPERATIVE DIAGNOSIS: Colon cancer. POSTOPERATIVE DIAGNOSES: 1. Colon cancer. 2. Status post laparoscopic low anterior resecti on. PROCEDURE PERFORMED: Laparoscopic low anterior r esection. SURGEON: Kevin Rollins MD TERMITE CONTROL REPRESENTATIVE: LOAN aCmargo ANESTHESIA: General endotracheal anesthesia plus local. INDICATIONS [...] retrocolic fashion. After completion of the medi rl-uj-jlxkzjo direction, the atraumatic grasper and laparoscopic Kittner [...] perit chand cavity. Irrigation with the suction properties supervisor reveal ed no evidence of active [...] of saline and evacuated with the suction properties supervisor. Then, my social science research assistant went below and perform successive dilations [...] By: Kevin Rollins MD WT: OP:JHOAN/GOVIND/REBECCA Conf#: [id number]/DID#: [id number] Authenticated by Kevin Rollins MD On 9 02:30:53 PM at 1431 PATIENT NAME: RACHAEL OQUENDO 4 2018-12-31 [facility] 14:35:00-00:00 [facility] ([facility]) Bedside Procedure Note REPORT#:[id number] REPORT STATUS: Signed DATE:12/31/18 TIME:1435 PATIENT: RACHAEL OQUENDO UNIT #: [id number] ROOM/BED: [facility] : 62 AGE: 58 SEX: M ATTEND: Christian Rollins MD ADM AUTHOR: Kevin Rollins MD * ALL edits or amendments must be made on the [employer] document * Bedside Procedure Note Bedside Procedure Note Start date: 12/31/18 Start time: 45 Pre-procedure diagnosis: Colon cancer Post-procedure diagnosis: Same as above s/p lap low anterior resection Procedure performed: Laparoscopic low anterior r esection Performed by: Dr. Kevin Rollins MD Airplane Technician(s): LUL CamargoA Indications: 58 yo M with a distal [...] details. Disposition: tolerated proc. well, return to [facility] or Electronically Signed by Kevin Rollins MD on 0 12/31/18 at 1442 [facility] #: [id number] END OF REPORT 2018-12-31 [facility] 13:56:00-00:00 [facility] ([facility]) Post Anesthesia Evaluation REPORT#:[id number] REPORT STATUS: Signed DATE:12/31/18 TIME:1356 PATIENT: RACHAEL OQUENDO UNIT #: [id number] ROOM/BED: [place] [address] : 64 AGE: 58 SEX: M ATTEND: Christian Rollins MD ADM AUTHOR: Divina Crabtree CRNA * ALL edits or amendments must be made on the [employer] document * Post Anesthesia Evaluation Anes. changes [...] 12/31 1345 68 12 117/64 99 Simple 10.798546 mask 12/31 1340 37.6 74 12 116/64 100 Simple 10.0000 00 mask 12/31 0642 36.7 56 18 131/77 98 Room air 0.000 000 Cardiovascular: no change, CV system stable, vit al signs stable Respiratory/Airway: respiratory system stable, m aintains without support Pain: adequately controlled Hydration: adequate Temp status: normothermic Presence of N/V: no Anesthesia complications: no Other changes requiring f/u: none Conclusions: no apparent anes. issues Electronically Signed by Divina Crabtree CRNA 12/31/18 at 1357 RPT #: [id number] END OF REPORT 2018-12-29 [id number] [facility] 16:15:00-00:00 [facility] [id number] [place] [address] PATIENT NAME: RACHAEL OQUENDO ADMIT DATE: ACCOUNT NO: [id number] ROOM NO: AGE: 58 REPORT TYPE: eELECTROCARDIOGRAM SEX: M ADMITTING PHYSICIAN: Kevin Rollins MD ATTENDING PHYSICIAN: Kevin Rollins MD Order: [id number] Test Reason : PRE OP Test Date/Time [...] ECGs available Confirmed by DEEPIKA ROBLEDO MD ([id number]) on 12/30/2018 8:5 9:23 PM Referred By: Kevin Rollins Confirmed by:DEEPIKA ROBLEDO MD at 2058 PATIENT NAME: RACHAEL OQUENDO
[2023-07-25] MEDS ORDERED: NA CHLORIDE 0.9% 100 ML ONE (17:10)
[2023-07-25] MEDS ORDERED: KETAMINE HCL IN 0.9 % NACL 50 MG/5 ML SYRINGE IV ONE (17:12)
[2023-07-25] MEDS ORDERED: DIAZEPAM 5 MG TABLET ONE (17:14)
--- NOTE | 2023-07-25 17:54 | RAD REPORT ---
EXAM DESCRIPTION: RAD - Lumbar Spine 3 Views - 07/25/2023 5:25 pm CLINICAL HISTORY: Back pain FINDINGS: No fracture or dislocation is seen. No significant bone or joint abnormality noted
[2023-07-25 18:42] LABS: Specific Gravity 1.023 (1.005-1.030); Urine Bilirubin NEGATIVE (Negative); Urine Blood Negative (Negative); Urine Clarity Clear (Clear); Urine Color Light-Yellow (Yellow); Urine Glucose NEGATIVE (Negative); Urine Protein NEGATIVE (Negative); Urine Urobilinogen Normal (Normal); Urine pH 5.5 (5.0-7.0)
--- NOTE | 2023-07-25 18:56 | EDPHYS ---
Physician Documentation [facility] Name: Taiwo Chery Age: 63 yrs Sex: Male : 1960 Arrival Date: 07/25/2023 Time: 16:07 Bed 13 Private MD: ED Physician Flo Combs HPI: 07/25 16:42 This 63 yrs old Male presents to ER via Ambulatory with complaints of back ms3 pain. 16:42 63-year-old male with past medical history of hypertension, diabetes, history of colon ms3 cancer presents for lower back pain that is been going on for 3 years after receiving chemotherapy. Patient's states the pain has become worse. Patient's called patient's pain management physician, Dr. Tucker and was instructed to come to the emergency department. Patient states his pain is a 10/10. Patient denies bowel/bladder incontinence, fevers, vomiting, abdominal pain. Historical: - Allergies: 16:36 No Known Drug Allergies; hb - PMHx: 16:36 Hypertensive disorder; diabetes mellitus; hb - Immunization history:: Adult Immunizations up to date. - Social history:: Smoking status: Patient denies any tobacco usage or history of. ROS: 16:42 Constitutional: Negative for fever, and chills. Neck: Negative for injury, pain, and ms3 swelling, Cardiovascular: Negative for chest pain, and palpitations. Respiratory: Negative for shortness of breath, cough, wheezing, and pleuritic chest pain, Abdomen/GI: Negative for abdominal pain, nausea, vomiting, diarrhea, and constipation. 16:42 Back: Positive for Back pain. 16:42 All other systems are negative. Exam: 16:42 Constitutional: This is a well developed, well nourished patient who is awake, alert, ms3 and in no acute distress. Head/Face: Normocephalic, atraumatic. Chest/axilla: Normal chest wall appearance and motion. Nontender with no deformity. Cardiovascular: Regular rate and rhythm with a normal S1 and S2. No gallops, murmurs, or rubs. Normal PMI, no JVD. No pulse deficits. Respiratory: Lungs have equal breath sounds bilaterally, clear to auscultation and percussion. No rales, rhonchi or wheezes noted. No increased work of breathing, no retractions or nasal flaring. Abdomen/GI: Soft, non-tender, with normal bowel sounds. No distension or tympany. No guarding or rebound. No evidence of tenderness throughout. 16:42 Back: pain, that is severe, of the left low back and right low back, CVA tenderness, is absent, vertebral tenderness, is not appreciated, muscle spasm, is appreciated in the left low back and right low back. Vital Signs: 16:34 BP 125 / 75; Pulse 66; Resp 16; Temp 98.3; Pulse Ox 100% on R/A; Pain 10/10; hb 16:54 Weight 106.14 kg; hb 18:38 BP 97 / 61; Pulse 55; Resp 16; Pulse Ox 98% on R/A; mb9 19:09 BP 98 / 64; Pulse 60; Resp 18; Pulse Ox 100% on R/A; mb9 16:34 Pain Scale: Adult hb MDM: 16:42 Patient medically screened. ms3 16:42 Differential diagnosis: Neoplasm Muscle spasm. ms3 18:55 Data reviewed: vital signs, nurses notes, lab test result(s), radiologic studies, and ms3 as a result, I will discharge patient. I considered the following discharge prescriptions or medication management in the emergency department Medications were administered in the Emergency Department. See MAR. Independent interpretation of the following test(s) in the Emergency Department X-Ray: My interpretation is Lumbar spine film reviewed does not show compression fracture, alignment normal. Historians other than the Patient: Spouse/Significant Other: . Counseling: I had a detailed discussion with the patient and/or guardian regarding the historical points, exam findings, and any diagnostic results supporting the discharge/admit diagnosis, lab results, radiology results, the need for outpatient follow up, to return to the emergency department if symptoms worsen or persist or if there are any questions or concerns that arise at home. Special discussion: I discussed with the patient/guardian in detail that at this point there is no indication for admission to the hospital. It is understood, however, that if the symptoms persist or worsen the patient needs to return immediately for re-evaluation. ED course: Discussed urinalysis and lumbar x-ray with patient and his . Patient to follow-up with primary care physician in 2 to 3 days. Patient understands agrees with plan. Questions were answered. Return precautions discussed include worsening symptoms, or any other concerns. On reevaluation patient is improved, alert, in no apparent distress, nontoxic-appearing, ambulatory number department. 07/25 16:42 Order name: Urinalysis w/ reflexes; Complete Time: 18:43 ms3 07/25 16:42 Order name: Lumbar Spine (3 Views) XRAY; Complete Time: 17:59 ms3 07/25 16:46 Order name: IV Saline Lock; Complete Time: 16:46 mb9 Administered Medications: 17:12 Drug: Ketamine IVP 0.2 mg/kg Route: IVP; Site: right antecubital; mb9 17:35 Follow up: Response: No adverse reaction mb9 18:01 Follow up: Response: No adverse reaction mb9 17:12 Drug: Diazepam PO 5 mg Route: PO; mb9 17:34 Follow up: Response: No adverse reaction mb9 18:01 Follow up: Response: No adverse reaction mb9 Disposition Summary: 07/25/23 18:55 Discharge Ordered Location: Home ms3 Condition: Stable ms3 Diagnosis - Low back pain ms3 Followup: ms3 - With: Toni Rausch MD - When: 2 - 3 days - Reason: Recheck today's complaints Discharge Instructions: - Discharge Summary Sheet ms3 - Acute Back Pain, Adult ms3 - Chronic Back Pain ms3 Forms: - Medication Reconciliation Form ms3 - Thank You Letter ms3 - Antibiotic Education ms3 - Prescription Opioid Use ms3 - Patient Portal Instructions ms3 - Leadership Thank You Letter ms3 Signatures: Dispatcher [employer] Sommer Brown RN RN hb Sims, Marcus, DO DO ms3 Rosa Mo RN RN mb9
--- NOTE | 2023-07-25 18:56 | ER ---
Nurse's Notes [facility] Name: Taiwo Chery Age: 63 yrs Sex: Male : 1960 Arrival Date: 07/25/2023 Time: 16:07 Bed 13 Private MD: Diagnosis: Low back pain Presentation: 07/25 16:34 Chief complaint: Chronic low back pain that radiates to legs, worse over the last 2 hb days. Coronavirus screen: At this time, the client does not indicate any symptoms associated with coronavirus-19. Ebola Screen: No symptoms or risks identified at this time. Initial Sepsis Screen: Does the patient meet any 2 criteria? No. Patient's initial sepsis screen is negative. Does the patient have a suspected source of infection? No. Patient's initial sepsis screen is negative. Risk Assessment: Do you want to hurt yourself or someone else? Patient reports no desire to harm self or others. Onset of symptoms was July 24, 2023. 16:34 Method Of Arrival: Ambulatory hb 16:34 Acuity: LEONARD 3 hb Historical: - Allergies: 16:36 No Known Drug Allergies; hb - PMHx: 16:36 Hypertensive disorder; diabetes mellitus; hb - Immunization history:: Adult Immunizations up to date. - Social history:: Smoking status: Patient denies any tobacco usage or history of. Screenin:38 [facility] ED Fall Risk Assessment (Adult) History of falling in the last 3 months, mb9 including since admission No falls in past 3 months (0 pts) Confusion or Disorientation No (0 pts) Intoxicated or Sedated No (0 pts) Impaired Gait No (0 pts) Mobility Assist Device Used No (0 pt) Altered Elimination No (0 pt) Score/Fall Risk Level 0 - 2 = Low Risk Oriented to surroundings, Maintained a safe environment, Educated pt \T\ family on fall prevention, incl call for assistance when getting out of bed. Abuse screen: Denies threats or abuse. Nutritional screening: No deficits noted. Tuberculosis screening: No symptoms or risk factors identified. Assessment: 16:46 Pain: Complains of pain in right low back and left low back Pain does not radiate. Pain mb9 currently is 10 out of 10 on a pain scale. Quality of pain is described as sharp, shooting, throbbing, Pain began suddenly. Neuro: Corbett Agitation-Sedation Scale (RASS): 0 - Alert and Calm Level of Consciousness is awake, alert, obeys commands, Oriented to person, place, time, situation, Appropriate for age. Cardiovascular: Heart tones S1 S2 present Patient's skin is warm and dry. Respiratory: Airway is patent Respiratory effort is even, unlabored, Respiratory pattern is regular, symmetrical, Breath sounds are clear bilaterally. GI: Abdomen is round non-distended. : No signs and/or symptoms were reported regarding the genitourinary system. Derm: Skin is pink, warm \T\ dry. Musculoskeletal: Range of motion: intact in all extremities. 18:00 Reassessment: Patient and/or family updated on plan of care and expected duration. Pain mb9 level reassessed. Patient is alert, oriented x 3, equal unlabored respirations, skin warm/dry/pink. Patient states feeling better. Patient states symptoms have improved. 19:09 Reassessment: Patient and/or family updated on plan of care and expected duration. Pain mb9 level reassessed. Patient is alert, oriented x 3, equal unlabored respirations, skin warm/dry/pink. Patient states feeling better. Patient states symptoms have improved. Vital Signs: 16:34 BP 125 / 75; Pulse 66; Resp 16; Temp 98.3; Pulse Ox 100% on R/A; Pain 10/10; hb 16:54 Weight 106.14 kg; hb 18:38 BP 97 / 61; Pulse 55; Resp 16; Pulse Ox 98% on R/A; mb9 19:09 BP 98 / 64; Pulse 60; Resp 18; Pulse Ox 100% on R/A; mb9 16:34 Pain Scale: Adult hb ED Course: 16:26 Patient arrived in ED. im 16:27 Flo Combs DO is Attending Physician. ms3 16:33 Rosa Mo, LELE is Primary Nurse. mb9 16:33 Arm band placed on. mb9 16:36 Triage completed. hb 16:45 Placed in gown. Bed in low position. Call light in reach. Side rails up X 1. Client mb9 placed on continuous cardiac and pulse oximetry monitoring. NIBP monitoring applied. monitoring engineer on. 16:46 Inserted saline lock: 20 gauge in right antecubital area, using aseptic technique. mb9 17:27 Lumbar Spine (3 Views) XRAY In Process Unspecified. EDMS 18:38 No provider procedures requiring assistance completed. mb9 18:55 Toni Rausch MD is Referral Physician. ms3 19:10 IV discontinued, intact, bleeding controlled, No redness/swelling at site. Pressure mb9 dressing applied. Administered Medications: 17:12 Drug: Ketamine IVP 0.2 mg/kg Route: IVP; Site: right antecubital; mb9 17:35 Follow up: Response: No adverse reaction mb9 18:01 Follow up: Response: No adverse reaction mb9 17:12 Drug: Diazepam PO 5 mg Route: PO; mb9 17:34 Follow up: Response: No adverse reaction mb9 18:01 Follow up: Response: No adverse reaction mb9 Medication: 18:38 VIS not applicable for this client. mb9 Outcome: 18:55 Discharge ordered by . ms3 19:10 Discharged to home ambulatory, with family. mb9 19:10 Condition: stable 19:10 Discharge instructions given to patient, family, Instructed on discharge instructions, follow up and referral plans. Demonstrated understanding of instructions, follow-up care. 19:10 Patient left the ED. mb9 Signatures: Dispatcher [employer] EDMS Sommer Zelaya RN RN Flo Carey DO DO ms3 Rosa Mo RN RN mb9 Jenna Richmond
[2023-07-25 19:57] VITALS: TEMP 98.3
[2023-07-25 20:10] VITALS: BP 98/64; O2SAT 100
== END 2023-07-25 19:10 | disposition home or self-care (01) ==
LOC: ER 16:07
DX: M54.50 Low back pain, unspecified (principal)
CPT/HCPCS: 72100; 81003; 96374; 99285

== ENCOUNTER 2023-09-25 14:41 | Emergency (ER) | payer OTHER ==
--- OUTSIDE RECORDS SUMMARY | 2023-09-25 14:48 | XMS REPORT | Continuity of Care Document ---
:1960 Author Organization [facility] t Address [address] [facility] [address] [place] [address] Care Team Providers Name Role Phone ANABELA ORTIZ Primary Care Physician Unavailable Darius Gallo Attending Clinician Unavailable Brittanie Wing Attending Clinician Unavailable DARIUSZ SANTANA Attending Clinician Unavailable CITLALLI DOUGHERTY Attending Clinician Unavailable GEORGINA FOSTER Attending Clinician Unavailable DARIUS GALLO Attending Clinician Unavailable LINH JEFFERS Attending Clinician Unavailable GUS NERI Attending Clinician Unavailable ARABELLA JUNE Attending Clinician Unavailable ABHAY ASTORGA Attending Clinician Unavailable LAB45 Attending Clinician Unavailable 39, HOLTER Attending Clinician Unavailable MD ELISE Attending Clinician Unavailable LAB90 Attending Clinician Unavailable RAMY SIDDIQUI Attending Clinician Unavailable NEO CARBAJAL Attending Clinician Unavailable DARREL CHOI Attending Clinician Unavailable PL, TECH 1 Attending Clinician Unavailable CHRISTIANO MENDOZA Attending Clinician Unavailable LATHA ROCK Attending Clinician Unavailable YOHAN FRIEDMAN Attending Clinician Unavailable MICAH ULLOA Attending Clinician Unavailable Raul Elkins DO Attending Clinician JERROD ANDERSON Attending Clinician Unavailable LATHA AVILA Attending Clinician Unavailable Rafia Medina Attending Clinician RAFIA GORDON Attending Clinician Unavailable Doctor Unassigned, [place] Attending Clinician Unavailable Errol Callejas Attending Clinician ERROL SHARP Attending Clinician Unavailable JERROD ANDERSON Admitting Clinician Unavailable Payers Payer Name Policy Type Policy Number Effective Date Expiration Date S ource HUMANA MA GOLD 7 [id number] 2022 PLUS 33 D-SNP 00:00:00 OA HUMANA MEDICARE 53 [id number] 2022 Common Sp les 00:00:00 - [facility] HUMANA MA 5 [id number] 2022 00:00:00 KCA GOLD 16 [id number] 2021 F[employer] HMO-POS 00:00:00 COMMUNITY [id number] 2019 HEALTH CHOICE 00:00:00 Problems Condition Condition [...] History of History of Disease Active K elsey colectomy colectomy 1-18 Seyb old 00:00: - [...] mild Type 2 Type 2 Disease Active 2021-0 Kateryna diabetes diabetes 1-17 Seybol d mellitus mellitus 00:00: - with with 00 Externa hyperglyce hyperglyce l kurtis kurtis HTN HTN Disease Active Kateryna (hypertens (hypertens Se ybold ion) ion) - Externa l Depression Depression Disease Active K elsey Seybold DM DM Disease Active Kateryna (diabetes (diabetes Seyb old mellitus), mellitus), type 2 type 2 [id number] Other Problem Common chronic Spirit pain - [facility] Incomplete Incomplete Problem C ommon emptying emptying Spirit of bladder of bladder - [facility] Disorder Renal Problem Common of kidney mass, Spirit and/or right - [facility] ureter [facility] [id number] Primary Problem Comm on osteoarthr Spirit itis of - [facility] right knee [facility] [id number] Primary Problem Comm on osteoarthr Spirit itis of - [facility] left knee [facility] [id number] BPH loc w Problem Com mon urin Spirit obs/LUTS - [facility] [id number] Right-side Problem Co mmon d low back Spirit pain - [facility] without St sciatica, [facility] chronicity Spasm Jerking Problem Common movements [facility] of - [facility] extremitie [facility] [id number] CPAP Problem Common (continuou Spirit s positive - [facility] airway [facility] pressure) [facility] dependence [facility]ica [facility] [place] [id number] 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 - [facility] of [facility] g sites of Medica l urethra in Center male [id number] Other Problem Common obstructiv Spirit e and - [facility] reflux uropathy [facility] [id number] Urethritis Problem Com mon Spirit - [facility] [id number] Other Problem Commo n [id number] stricture Spirit of - [facility] urethral St meatus in [facility] [id number] Body mass Problem Com mon index Spirit (BMI) - [facility] 40.0-44.9, [facility] Hyperlipid Hyperlipid Problem C ommon emia emia [facility] [id number] Depression Problem Co mmon with Spirit anxiety [facility] [id number] Morbid Problem Common obesity [facility] [id number] Essential Problem Comm on hypertensi Spirit on [facility] Skin Numbness Problem Common sensation in both Spirit disturbanc hands - [facility] e [facility] [id number] Uncontroll Problem Co mmon ed type 2 Spirit diabetes - [facility] mellitus [facility] hyperglyce Medica [facility] 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 [facility] Phimosis Phimosis Problem Commo n Spirit [facility] [id number] Lower Problem Common urinary [facility] tract - [facility] Acute Acute Problem Common cystitis cystitis [facility] with [facility] hematuria [facility] [id number] Hx of Problem Common colon [facility] cancer, [facility] stage III [facility] Cancer Cancer Problem Common [facility] Dizziness Dizziness Problem Com mon [facility] [id number] Leg Problem Common heaviness [facility] Headache Frequent Problem Commo n headaches [facility] [id number] Obstructiv Problem Com mon e sleep Spirit apnea [facility] Gross Gross Problem Common hematuria hematuria Spir it [facility] 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[facility] kidney - [facility] disease [facility] Arthritis Arthritis Problem Com mon of both of both [facility] knees knees [facility] Allergies, Adverse Reactions, Alerts Allergy Allergy Status Severity Reaction(s) Onset Inactive Treating Comm ents Source Name Type Date Date Clinician No Known DA Active [facility] Allergie 2-19 Nik radford 00:00: d [address] [place] [address] NO KNOWN Drug Active [facility] ALLERGIE Class ity of S [facility] Social History Social Habit Start Date Stop Date Quantity Comments Source Gender identity Kateryna duron - External Sexual orientation Kateryna Gauthier - External Exposure to Not sure Kateryna zepeda SARS-CoV-2 (event) History of Tobacco Common Spirit - Use [facility] Sex Assigned At Com mon Spirit [facility] History of Social 2023-07-24 2023-07-24 Kateryna Gauthier - function 00:00:00 00:00:00 External Smoking Status Start Date Stop Date Source Former Smoker 2023-05-20 00:00:00 2023-05-20 00:00:00 Common S pirit - [facility] Never smoked tobacco Kateryna Seyb old - External Medications Ordered Filled Start Stop Current Ordering Indication Dosage Frequency Signature Comments Components Source Medication Medication Date Date Medication? Clinician (SIG) Name Name Aspirin 81 2022-0 Yes 81mg Take 1 Kelse y MG oral 9-22 tablet (81 Seybol d Tablet 13:09: mg total) - Delayed 52 by mouth. Externa Response l Tizanidine 2022-0 Yes 4mg Take 1 Kelse y HCl 4 MG 9-22 tablet (4 Seybol d oral Tablet 13:09: mg total) - 52 by mouth Externa at l bedtime. HYDROcodone 2022-0 Yes [id number] 1{tbl} QD Take 1 Kateryna -Acetaminop 9-22 tablet by MD [employer]misael Park[employer]u hen 10-325 13:09: mouth - MG oral 52 daily as Externa Tablet needed for l pain. Aripiprazol 2022-0 Yes 15mg Take 1 Keisha ey e 15 MG 9-22 tablet (15 Seybol d oral Tablet 13:09: mg total) - 52 by mouth Externa daily. l Ramelteon 2022-0 Yes 8mg Take 1 Kateryna (Rozerem) 8 9-22 tablet (8 Sey bold MG oral 13:09: mg total) - Tablet 52 by mouth Externa nightly. l Aspirin 81 2022-0 Yes 81mg Take 1 Kelse y MG oral 9-22 tablet (81 Seybol d Tablet 13:09: mg total) - Delayed 52 by mouth. Externa Response l Tizanidine 2022-0 Yes 4mg Take 1 Kelse y HCl 4 MG 9-22 tablet (4 Seybol d oral Tablet 13:09: mg total) - 52 by mouth Externa at l bedtime. HYDROcodone 2022-0 Yes [id number] 1{tbl} QD Take 1 Kateryna -Acetaminop 9-22 tablet by [employer]i hen 10-325 13:09: mouth - MG oral 52 daily as Externa Tablet needed for l pain. Aripiprazol 2022-0 Yes 15mg Take 1 Keisha ey e 15 MG 9-22 tablet (15 Seybol d oral Tablet 13:09: mg total) - 52 by mouth Externa daily. l Ramelteon 2022-0 Yes 8mg Take 1 Kateryna (Rozerem) 8 9-22 tablet (8 Sey bold MG oral 13:09: mg total) - Tablet 52 by mouth Externa nightly. l cycloSPORIN 2023-0 Yes [id number] 1[drp] Place 1 Kateryna E 9-22 drop into Seybold (Restasis) 00:00: both eyes - 0.05 % 00 2 times Externa ophthalmic daily. l Emulsion cycloSPORIN 2022-0 Yes [id number] 1[drp] Place 1 Kateryna E 9-22 drop into Seybold (Restasis) 00:00: both eyes - 0.05 % 00 2 times Externa ophthalmic daily. l Emulsion Aspirin 81 2022-0 Yes 81mg Take 1 Kelse y MG oral 9-14 tablet (81 Seybol d Tablet 08:36: mg total) - Delayed 13 by mouth. Externa Response l Tizanidine 2022-0 Yes 4mg Take 1 Kelse y HCl 4 MG 9-14 tablet (4 Seybol d oral Tablet 08:36: mg total) - 13 by mouth Externa at l bedtime. HYDROcodone 2022-0 Yes [id number] 1{tbl} QD Take 1 Kateryna -Acetaminop 9-14 tablet by Sey bold hen 10-325 08:36: mouth - MG oral 13 daily as Externa Tablet needed for l pain. Aripiprazol 2022-0 Yes 15mg Take 1 Keisha ey e 15 MG 9-14 tablet (15 Seybol d oral Tablet 08:36: mg total) - 13 by mouth Externa daily. l Ramelteon 2022-0 Yes 8mg Take 1 Kateryna (Rozerem) 8 9-14 tablet (8 Sey bold MG oral 08:36: mg total) - Tablet 13 by mouth Externa nightly. l TRUEplus 2022-0 Yes USE Kateryna Lancets 33G 9-05 DIRECTED Seyb old does not 00:00: - apply Misc 00 Externa l TRUEplus 2022-0 Yes USE Kateryna Lancets 33G 9-05 DIRECTED Seyb old does not 00:00: - apply Misc 00 Externa l TRUEplus 2022-0 Yes USE Kateryna Lancets 33G 9-05 DIRECTED Seyb old does not 00:00: - apply Misc 00 Externa l Aripiprazol 2022-0 Yes 15mg Take 1 Keisha ey e 15 MG 8-22 tablet (15 Seybol d oral Tablet 14:34: mg total) - 46 by mouth Externa daily. l Trazodone 2022-0 2023- No Trazodone Ke lsey HCl 100 MG 8-22 08-22 Oral once Sey bold oral Tablet 14:32: 00:00 daily - 18 :00 active Externa l Metformin 2022-0 Yes [id number] 1000mg Take 1 Kateryna HCl 1000 MG 8-22 3 tablet Seybol d oral Tablet 00:00: (1,000 mg - 00 total) by Externa mouth in l the morning and 1 tablet (1,000 mg total) in the evening. Take with meals. Metformin 2022-0 Yes [id number] 1000mg Take 1 Kateryna HCl 1000 MG 8-22 3 tablet Seybol d oral Tablet 00:00: (1,000 mg - 00 total) by Externa mouth in l the morning and 1 tablet (1,000 mg total) in the evening. Take with meals. Metformin 2022-0 Yes [id number] 1000mg Take 1 Kateryna HCl 1000 MG 8-22 3 tablet Seybol d oral Tablet 00:00: (1,000 mg - 00 total) by Externa mouth in l the morning and 1 tablet (1,000 mg total) in the evening. Take with meals. Metformin 2022-0 Yes [id number] 1000mg Take 1 Kateryna HCl 1000 MG 8-22 3 tablet Seybol d oral Tablet 00:00: (1,000 mg - 00 total) by Externa mouth in l the morning and 1 tablet (1,000 mg total) in the evening. Take with meals. Blood 2022-0 Yes USE Kateryna Glucose 7-24 DIRECTED Seybold Monitoring 00:00: - Suppl (True 00 Externa Metrix Air l Glucose Meter) w/Device does not apply Kit Blood 2022-0 Yes USE Kateryna Glucose 7-24 DIRECTED Seybold Monitoring 00:00: - Suppl (True 00 Externa Metrix Air l Glucose Meter) w/Device does not apply Kit Blood 3-0 Yes USE Kateryna Glucose 7-24 DIRECTED Seybold Monitoring 00:00: - Suppl (True 00 Externa Metrix Air l Glucose Meter) w/Device does not apply Kit Blood Yes USE Kateryna Glucose 7-24 DIRECTED Seybold Monitoring 00:00: - Suppl (True 00 Externa Metrix Air l Glucose Meter) w/Device does not apply Kit Aspirin 81 2022-0 Yes 81mg Take 1 Kelse y MG oral 6-21 tablet (81 Seybol d Tablet 15:48: mg total) - Delayed 07 by mouth Externa Response l Tizanidine 2022-0 Yes 4mg Take 1 Kelse y HCl 4 MG 6-21 tablet (4 Seybol d oral Tablet 15:48: mg total) - 07 by mouth Externa at bedtime l HYDROcodone 2022-0 Yes [id number] 1{tbl} QD Take 1 Kateryna -Acetaminop 6-21 tablet by Rosalba manjarrez hen 10-325 15:48: mouth - MG oral 07 daily as Externa Tablet needed for l pain Eszopiclone Yes Eszopiclon Kateryna 3 MG oral 6-21 e Oral Seybold Tablet 15:48: once daily - 07 active Externa l methylPREDN 2022-0 3- No [id number] Take is Kateryna ISolone 04-09- [id number] instructed Rosalba manjarrez (Medrol) 4 00:00: 00:00 on pack - MG oral 00 :00 Externa Tablet l Therapy Pack Ciprofloxac 0 3- No [id number] 500mg Take 1 Kateryna in HCl 03-26- tablet Seybold (Cipro) 500 00:00: 00:00 (500 mg - MG oral 00 :00 total) by Externa Tablet mouth 2 l times daily for 7 days Naproxen Naproxen 2022-0 No BID Naproxen 500 MG 500 MG 5-15 500 MG 00:00: 00 Naproxen Naproxen 2022-0 No BID Naproxen 500 [...] Externa at bedtime l HYDROcodone 2022-0 Yes [id number] 1{tbl} QD Take 1 Kateryna -Acetaminop 4-28 [...] at - 00 night Externa l Gabapentin 3-0 Yes 1 in AM, 1 K elsey 300 MG oral 4-28 at noon, Seyb old Capsule 00:00: and 2 at - 00 night Externa l Enalapril 2022-0 Yes [id number] TAKE 1 Ke lsey Maleate 10 4-25 TABLET Seybold MG oral 00:00: EVERY DAY - Tablet 00 Externa l Blood 2022-0 Yes USE Kateryna Glucose 4-25 MONITOR TO Seybol d Monitoring 00:00: CHECK - Suppl (True 00 BLOOD Externa Metrix Air SUGAR l Glucose Meter) w/Device does not apply Kit Pantoprazol 2022-0 Yes [id number] TAKE 1 Kateryna e Sodium 40 4-25 TABLET Seybol d MG oral 00:00: EVERY DAY - Tablet 00 Externa Delayed l Response Blood 2022-0 Yes Kateryna Glucose 4-25 Seybold Calibration 00:00: - (True 00 Externa Metrix l Level 1) Low in vitro Solution Enalapril 2023-0 Yes [id number] TAKE 1 Ke lsey Maleate 10 4-25 TABLET Seybold MG oral 00:00: EVERY DAY - Tablet 00 Externa l Pantoprazol 2023-0 Yes [id number] TAKE 1 Kateryna e Sodium 40 4-25 TABLET Seybol d MG oral 00:00: EVERY DAY - Tablet 00 Externa Delayed l Response Blood 2022-0 Yes Kateryna Glucose 4-25 Seybold Calibration 00:00: - (True 00 Externa Metrix l Level 1) Low in vitro Solution Enalapril 3-0 Yes [id number] TAKE 1 Ke lsey Maleate 10 4-25 TABLET Seybold MG oral 00:00: EVERY DAY - Tablet 00 Externa l Pantoprazol 2023-0 Yes [id number] TAKE 1 Kateryna e Sodium 40 4-25 TABLET Seybol d MG oral 00:00: EVERY DAY - Tablet 00 Externa Delayed l Response Blood 2022-0 Yes Kateryna Glucose 4-25 Seybold Calibration 00:00: - (True 00 Externa Metrix l Level 1) Low in vitro Solution Enalapril 2023-0 Yes [id number] TAKE 1 Ke lsey Maleate 10 4-25 TABLET Seybold MG oral 00:00: EVERY DAY - Tablet 00 Externa l Pantoprazol 2023-0 Yes [id number] TAKE 1 Kateryna e Sodium 40 4-25 TABLET Seybol d MG oral 00:00: EVERY DAY - Tablet 00 Externa Delayed l Response Blood 3-0 Yes Kateryna Glucose 4-25 Seybold Calibration 00:00: - (True 00 Externa Metrix l Level 1) Low in vitro Solution Enalapril 2023-0 Yes [id number] TAKE 1 Ke lsey Maleate 10 4-25 TABLET Seybold MG oral 00:00: EVERY DAY - Tablet 00 Externa l Pantoprazol 2023-0 Yes [id number] TAKE 1 Kateryna e Sodium 40 4-25 TABLET Seybol d MG oral 00:00: EVERY DAY - Tablet 00 Externa Delayed l Response Blood 2023-0 Yes Kateryna Glucose 4-25 Seybold Calibration 00:00: - (True 00 Externa Metrix l Level 1) Low in vitro Solution Metoprolol Yes [id number] 25mg Take 1 K elsey Tartrate 4-24 tablet (25 Seybo ld (LOPRESSOR) 00:00: mg total) - 25 MG oral 00 by mouth 2 Ext gerber Tablet times l daily Metoprolol Yes [id number] 25mg Take 1 K elsey Tartrate 4-24 tablet (25 Seybo ld (LOPRESSOR) 00:00: mg total) - 25 MG oral 00 by mouth 2 Ext gerber Tablet times l daily Metoprolol Yes [id number] 25mg Take 1 K elsey Tartrate 4-24 tablet (25 Seybo ld (LOPRESSOR) 00:00: mg total) - 25 MG oral 00 by mouth 2 Ext gerber Tablet times l daily Metoprolol Yes [id number] 25mg Take 1 K elsey Tartrate 4-24 tablet (25 Seybo ld (LOPRESSOR) 00:00: mg total) - 25 MG oral 00 by mouth 2 Ext gerber Tablet times l daily Metoprolol Yes [id number] 25mg Take 1 K elsey Tartrate 4-24 tablet (25 Seybo ld (LOPRESSOR) 00:00: mg total) - 25 MG oral 00 by mouth 2 Ext gerber Tablet times l daily HYDROcodone Yes [id number] 1{tbl} QD Take 1 Kateryna -Acetaminop 4-18 tablet by y bold hen 10-325 13:35: mouth - MG [...] - Delayed 27 Externa Response l Tizanidine 2023-0 Yes 1{tbl} Take 1 Dre sey HCl 4 MG 3-08 tablet by Seybol d oral Tablet 11:26: mouth at - 27 bedtime Externa l Gabapentin 3-0 Yes 1 in AM, 1 K elsey 300 MG oral 3-08 at noon, Seyb old Capsule 00:00: and 2 at - 00 night Externa l Gabapentin 2023-0 Yes 1 in AM, 1 K elsey 300 MG oral 3-08 at noon, Seyb old Capsule 00:00: and 2 at - 00 night Externa l Gabapentin 2023-0 2023- No 1 in AM, 1 Kateryna 300 MG oral 3-08 04-28 at noon, Sey bold Capsule 00:00: 00:00 and 2 at - 00 :00 night Externa l Albuterol 2022-0 Yes [id number] 2{puff} Q.25D Inhale 2 Kateryna HFA 108 (90 2-23 puffs into Se ybold Base) 00:00: the lungs - MCG/ACT IN 00 every 6 Editor Managing Director a AERS hours as l needed for wheezing Albuterol 2022-0 Yes [id number] 2{puff} Q.25D Inhale 2 Kateryna HFA 108 (90 2-23 puffs into Se ybold Base) 00:00: the lungs - MCG/ACT IN 00 every 6 Editor Managing Director a AERS hours as l needed for wheezing Albuterol 2022-0 Yes [id number] 2{puff} Q.25D Inhale 2 Kateryna HFA 108 (90 2-23 puffs into Se ybold Base) 00:00: the lungs - MCG/ACT IN 00 every 6 Editor Managing Director a AERS hours as l needed for wheezing Albuterol 2022-0 Yes [id number] 2{puff} Q.25D Inhale 2 Kateryna HFA 108 (90 2-23 puffs into Se ybold Base) 00:00: the lungs - MCG/ACT IN 00 every 6 Editor Managing Director a AERS hours as l needed for wheezing Albuterol 2022-0 Yes [id number] 2{puff} Q.25D Inhale 2 Kateryna HFA 108 (90 2-23 puffs into Se ybold Base) 00:00: the lungs - MCG/ACT IN 00 every 6 Editor Managing Director a AERS hours as l needed for wheezing Albuterol 2023-0 Yes [id number] 2{puff} Q.25D Inhale 2 Kateryna HFA 108 (90 2-23 puffs into Se ybold Base) 00:00: the lungs - MCG/ACT IN 00 every 6 Editor Managing Director a AERS hours as l needed for wheezing Albuterol 0 Yes [id number] 2{puff} Q.25D Inhale 2 Kateryna HFA 108 (90 2-23 puffs into Se ybold Base) 00:00: the lungs - MCG/ACT IN 00 every 6 Editor Managing Director a AERS hours as l needed for [...] l Tizanidine 2022-0 Yes 1{tbl} Take 1 Der sey HCl 4 MG 2-09 tablet by [...] then l 1 po TID Gabapentin 2022-0 2023- No 1 po q HS K elsey 300 MG oral 2-09 03-07 x 7 days, Se ybold Capsule 00:00: 00:00 then 1 po - 00 :00 BID x 7 Externa days, then l 1 po TID Sertraline 2022-0 Yes 50mg Take 50 mg K elsey HCl 50 MG 1-24 by mouth Seybol d oral Tablet 00:00: daily - 00 Externa l Zolpidem 2023-0 Yes 12.5mg Take 12.5 Ke lsey Tartrate 1-24 mg by Seybold 12.5 MG 00:00: mouth at - oral Tab CR 00 bedtime Exter na l Sertraline 3-0 Yes 50mg Take 50 mg K elsey HCl 50 MG 1-24 by mouth Seybol d oral Tablet 00:00: daily - 00 Externa l Zolpidem 3-0 Yes 12.5mg Take 12.5 Ke lsey Tartrate 1-24 mg by Seybold 12.5 MG 00:00: mouth at - oral Tab CR 00 bedtime Exter na l Sertraline 3-0 Yes 50mg Take 50 mg K elsey HCl 50 MG 1-24 by mouth Seybol d oral Tablet 00:00: daily - 00 Externa l Zolpidem 3-0 Yes 12.5mg Take 12.5 Ke lsey Tartrate 1-24 mg by Seybold 12.5 MG 00:00: mouth at - oral Tab CR 00 bedtime Exter na l Sertraline 3-0 Yes 50mg Take 50 mg K elsey HCl 50 MG 1-24 by mouth Seybol d oral Tablet 00:00: daily - 00 Externa l Zolpidem 3-0 Yes 12.5mg Take 12.5 Ke lsey Tartrate 1-24 mg by Seybold 12.5 MG 00:00: mouth at - oral Tab CR 00 bedtime Exter na l Sertraline 3-0 Yes 50mg Take 1 Kelse y HCl 50 MG 1-24 tablet (50 Seyb old oral Tablet 00:00: mg total) - 00 by mouth Externa daily l Zolpidem 3-0 Yes 12.5mg Take 1 Kelse y Tartrate 1-24 tablet Seybold 12.5 MG 00:00: (12.5 mg - oral Tab CR 00 total) by Ext gerber mouth at l bedtime Sertraline 3-0 Yes 50mg Take 1 Kelse y HCl 50 MG 1-24 tablet (50 Seyb old oral Tablet 00:00: mg total) - 00 by mouth Externa daily l Sertraline 3-0 Yes 50mg Take 1 Kelse y HCl 50 MG 1-24 tablet (50 Seyb old oral Tablet 00:00: mg total) - 00 by mouth Externa daily. l Sertraline 2022-0 Yes 50mg Take 1 Kelse y HCl 50 MG 1-24 tablet (50 Seyb old oral Tablet 00:00: mg total) - 00 by mouth Externa daily. l Sertraline 2022-0 Yes 50mg Take 1 Kelse y HCl 50 MG 1-24 tablet (50 Seyb old oral Tablet 00:00: mg total) - 00 by mouth Externa daily. l Zolpidem 2022-0 2022- No 12.5mg Take 1 Keisha ey Tartrate -24 -22 tablet Seybold 12.5 MG 00:00: 00:00 (12.5 [...] 55 bedtime Externa l HYDROcodone 2022-0 Yes [id number] 1{tbl} QD Take 1 Kateryna -Acetaminop 1-18 tablet by Semisael siddiqi (NORCO) 00:00: mouth - 5-325 MG 00 daily as Externa oral Tablet needed for l pain Doxepin HCl 2022-0 Yes [id number] 50mg Take 1 K elsey 50 MG oral 1-18 capsule Seybol d Capsule 00:00: (50 mg - 00 total) by Externa mouth l daily Bupropion 2022-0 Yes [id number] 150mg QD Take 1 K elsey HCL XL 150 1-18 tablet Seybold MG OR TB24 00:00: (150 mg - 00 total) by Externa mouth l daily as needed (anxiety) HYDROcodone 2022-0 Yes [id number] 1{tbl} QD Take 1 Kateryna -Acetaminop 1-18 tablet by MD [employer]misael [employer] neeru ([employer]) 00:00: mouth - 5-325 MG 00 daily as Externa oral Tablet needed for l pain Doxepin HCl 2022-0 Yes [id number] 50mg Take 1 K elsey 50 MG oral 1-18 capsule Seybol d Capsule 00:00: (50 mg - 00 total) by Externa mouth l daily Bupropion 2022-0 Yes [id number] 150mg QD Take 1 K elsey HCL XL 150 1-18 tablet Seybold MG OR TB24 00:00: (150 mg - 00 total) by Externa mouth l daily as needed (anxiety) HYDROcodone 2022-0 Yes [id number] 1{tbl} QD Take 1 Kateryna -Acetaminop 1-18 tablet by MD [employer]misael [employer] ([employer]) 00:00: mouth - 5-325 MG 00 daily as Externa oral Tablet needed for l pain Doxepin HCl 2022-0 Yes [id number] 50mg Take 1 K elsey 50 MG oral 1-18 capsule Seybol d Capsule 00:00: (50 mg - 00 total) by Externa mouth l daily Bupropion 2022-0 Yes [id number] 150mg QD Take 1 K elsey HCL XL 150 1-18 tablet Seybold MG OR TB24 00:00: (150 mg - 00 total) by Externa mouth l daily as needed (anxiety) HYDROcodone 2022-0 Yes [id number] 1{tbl} QD Take 1 Kateryna -Acetaminop 1-18 tablet by MD [employer]misael [employer]eru ([employer]) 00:00: mouth - 5-325 MG 00 daily as Externa oral Tablet needed for l pain Doxepin HCl 2022-0 Yes [id number] 50mg Take 1 K elsey 50 MG oral 1-18 capsule Seybol d Capsule 00:00: (50 mg - 00 total) by Externa mouth l daily Bupropion 2022-0 Yes [id number] 150mg QD Take 1 K elsey HCL XL 150 1-18 tablet Seybold MG OR TB24 00:00: (150 mg - 00 total) by Externa mouth l daily as needed (anxiety) Doxepin HCl 2023-0 Yes [id number] 50mg Take 1 K elsey 50 MG oral 1-18 capsule Seybol d Capsule 00:00: (50 mg - 00 total) by Externa mouth l daily Bupropion 3-0 Yes [id number] 150mg QD Take 1 K elsey HCL XL 150 1-18 tablet Seybold MG OR TB24 00:00: (150 mg - 00 total) by Externa mouth l daily as needed (anxiety) Doxepin HCl 3-0 Yes [id number] 50mg Take 1 K elsey 50 MG oral 1-18 capsule Seybol d Capsule 00:00: (50 mg - 00 total) by Externa mouth l daily Bupropion 3-0 Yes [id number] 150mg QD Take 1 K elsey HCL XL 150 1-18 tablet Seybold MG OR TB24 00:00: (150 mg - 00 total) by Externa mouth l daily as needed (anxiety) Doxepin HCl 3-0 Yes [id number] 50mg Take 1 K elsey 50 MG oral 1-18 capsule Seybol d Capsule 00:00: (50 mg - 00 total) by Externa mouth l daily Bupropion 3-0 Yes [id number] 150mg QD Take 1 K elsey HCL XL 150 1-18 tablet Seybold MG OR TB24 00:00: (150 mg - 00 total) by Externa mouth l daily as needed (anxiety) Doxepin HCl 3-0 Yes [id number] 50mg Take 1 K elsey 50 MG oral 1-18 capsule Seybol d Capsule 00:00: (50 mg - 00 total) by Externa mouth l daily Bupropion 3-0 Yes [id number] 150mg QD Take 1 K elsey HCL XL 150 1-18 tablet Seybold MG OR TB24 00:00: (150 mg - 00 total) by Externa mouth l daily as needed (anxiety) Doxepin HCl 3-0 Yes [id number] 50mg Take 1 K elsey 50 MG oral 1-18 capsule Seybol d Capsule 00:00: (50 mg - 00 total) by Externa mouth l daily Bupropion 2023-0 Yes [id number] 150mg QD Take 1 K elsey HCL XL 150 1-18 tablet Seybold MG OR TB24 00:00: (150 mg - 00 total) by Externa mouth l daily as needed (anxiety) Doxepin HCl Yes [id number] 50mg Take 1 K elsey 50 MG oral 1-18 capsule Seybol d Capsule 00:00: (50 mg - 00 total) by Externa mouth l daily Bupropion 0 Yes [id number] 150mg QD Take 1 K elsey HCL XL 150 1-18 tablet Seybold MG OR TB24 00:00: (150 mg - 00 total) by Externa mouth l daily as needed (anxiety) HYDROcodone 0 2022- No [id number] 1{tbl} QD Take 1 Kateryna -Acetaminop 1-18 04-18 tablet by Se ybold hen (NORCO) 00:00: 00:00 mouth - 5-325 MG 00 :00 daily as Externa oral Tablet needed for l pain Amoxicillin Yes [id number] 1{tbl} Take 1 Kateryna -Pot 1-05 tablet by Seybold Clavulanate 00:00: mouth 2 - 875-125 MG 00 times Externa oral Tablet daily l Benzonatate Yes [id number] 100mg Q.[id number] Take 1 Kateryna (Tessalon 1-05 [id number] capsule S eybold [place]hes) 100 00:00: 3D (100 mg - MG oral 00 total) by Externa Capsule mouth 3 l times daily as needed for cough Amoxicillin 2022- No [id number] 1{tbl} Take 1 Kateryna -Pot 1-05 18 tablet by Seybold Clavulanate 00:00: 00:00 mouth 2 - 875-125 MG 00 :00 times Externa oral Tablet daily l Benzonatate 0 2022- No [id number] 100mg Q.[id number] Take 1 Kateryna (Tessalon 1-05 -18 [id number] capsule Seybold Perles) 100 00:00: 00:00 3D [...] times Externa daily l Enalapril 2021-11 Yes [id number] 10mg Take 1 Ke lsey Maleate 10 0-31 tablet (10 Sey bold MG oral 00:00: mg total) - Tablet 00 by mouth Externa daily l Pantoprazol 2021-11 Yes [id number] 40mg Take 1 Kateryna e Sodium 40 0-31 tablet (40 Se ybold MG oral 00:00: mg total) - Tablet 00 by mouth Externa Delayed daily l Response Enalapril 2021-11 Yes [id number] 10mg Take 1 Ke lsey Maleate 10 0-31 tablet (10 Sey bold MG oral 00:00: mg total) - Tablet 00 by mouth Externa daily l Pantoprazol 2021-11 Yes [id number] 40mg Take 1 Kateryna e Sodium 40 0-31 tablet (40 Se ybold MG oral 00:00: mg total) - Tablet 00 by mouth Externa Delayed daily l Response Enalapril 2021-11 Yes [id number] 10mg Take 1 Ke lsey Maleate 10 0-31 tablet (10 Sey bold MG oral 00:00: mg total) - Tablet 00 by mouth Externa daily l Pantoprazol 2021-11 Yes [id number] 40mg Take 1 Kateryna e Sodium 40 0-31 tablet (40 Se ybold MG oral 00:00: mg total) - Tablet 00 by mouth Externa Delayed daily l Response Enalapril 2021-11 Yes [id number] 10mg Take 1 Ke lsey Maleate 10 0-31 tablet (10 Sey bold MG oral 00:00: mg total) - Tablet 00 by mouth Externa daily l Pantoprazol 2021-11 Yes [id number] 40mg Take 1 Kateryan e Sodium 40 0-31 tablet (40 Se ybold MG oral 00:00: mg total) - Tablet 00 by mouth Externa Delayed daily l Response Enalapril 2021-11 Yes [id number] 10mg Take 1 Ke lsey Maleate 10 0-31 tablet (10 Sey bold MG oral 00:00: mg total) - Tablet 00 by mouth Externa daily l Pantoprazol 2021-11 Yes [id number] 40mg Take 1 Kateryna e Sodium 40 0-31 tablet (40 Se ybold MG oral 00:00: mg total) - Tablet 00 by mouth Externa Delayed daily l Response Enalapril 2021-11 Yes [id number] 10mg Take 1 Ke lsey Maleate 10 0-31 tablet (10 Sey bold MG oral 00:00: mg total) - Tablet 00 by mouth Externa daily l Pantoprazol 2021-11 Yes [id number] 40mg Take 1 Kateryna e Sodium 40 0-31 tablet (40 Se ybold MG oral 00:00: mg total) - Tablet 00 by mouth Externa Delayed daily l Response Enalapril 2021-11 Yes [id number] 10mg Take 1 Ke lsey Maleate 10 0-31 tablet (10 Sey bold MG oral 00:00: mg total) - Tablet 00 by mouth Externa daily l Pantoprazol 2021-11 Yes [id number] 40mg Take 1 Kateryna e Sodium 40 0-31 tablet (40 Se ybold MG oral 00:00: mg total) - Tablet 00 by mouth Externa Delayed daily l Response Enalapril 2021-11 Yes [id number] 10mg Take 1 Ke lsey Maleate 10 0-31 tablet (10 Sey bold MG oral 00:00: mg total) - Tablet 00 by mouth Externa daily l Pantoprazol 2021-11 Yes [id number] 40mg Take 1 Kateryna e Sodium 40 0-31 tablet (40 Se ybold MG oral 00:00: mg total) - Tablet 00 by mouth Externa Delayed daily l Response Enalapril 2021- No [id number] 20mg Take 1 K elsey Maleate 20 9-19 10-31 tablet (20 Se ybold MG oral 00:00: 00:00 mg total) - Tablet 00 :00 by mouth Externa daily l OrthoVisc OrthoVisc 0 No 15mg Com mon 8 Spirit 00:00: - [facility] OrthoVisc OrthoVisc 0 No 15mg Com 07-09 [facility] 00:00: - [facility] Blood Yes Use Kateryna Glucose 8-30 monitor to Seybol d Monitoring 00:00: check - Suppl 00 blood Externa (Blood sugar l Glucose Monitor System) w/Device does not apply Kit Blood Yes Use to Kateryna Glucose 8-30 check FSBS Seybol d Monitoring 00:00: as needed. - Suppl 00 Externa (Blood l Glucose Monitor System) w/Device does not apply Kit Glucose Yes [id number] 1{each} 1 each by Kateryna Blood in 8-30 other Seybold vitro Strip 00:00: route - 00 daily Use Externa 1 as l directed twice daily to check blood glucose. GNP Sterile 2022-0 Yes 1{each} 1 each by Kateryna Lancets 33G 8-30 does not Seyb old does not 00:00: apply - apply Misc 00 route 2 to Ext gerber 3 times l daily Blood 2021-0 Yes Use Kateryna Glucose 8-30 monitor to Seybol d Monitoring 00:00: check - Suppl 00 blood Externa (Blood sugar l Glucose Monitor System) w/Device does not apply Kit Blood 2-0 Yes Use to Kateryna Glucose 8-30 check FSBS Seybol d Monitoring 00:00: as needed. - Suppl 00 Externa (Blood l Glucose Monitor System) w/Device does not apply Kit Glucose 2021-0 Yes [id number] 1{each} 1 each by Kateryna Blood in [...] does not apply Kit Glucose 2021-0 Yes [id number] 1{each} 1 each by Kateryna Blood in [...] 2021-0 2022- No Use Kateryna Glucose 8-30 01-18 monitor to Seybo ld Monitoring 00:00: 00:00 check - Suppl 00 :00 blood Externa (Blood sugar l Glucose Monitor System) w/Device does not apply Kit Blood 202-0 2022- No Use to Kateryna Glucose 07-09 check FSBS Seybo ld Monitoring 00:00: 00:00 as needed. - Suppl 00 :00 Externa (Blood l Glucose Monitor System) w/Device does not apply Kit Glucose 2022- No [id number] 1{each} 1 each by Kateryna Blood in [...] gerber 3 times l daily Metformin Yes [id number] 1000mg Take 1 Kateryna HCl 1000 MG 8-28 tablet Seybol d oral Tablet 00:00: (1,000 mg - 00 total) by Externa mouth in l the morning and 1 tablet (1,000 mg total) in the evening. Take with meals. Metoprolol Yes [id number] 25mg Take 1 K elsey Tartrate 25 8-28 tablet (25 Se ybold MG oral 00:00: mg total) - Tablet 00 by mouth 2 Externa times l daily Atorvastati Yes [id number] 40mg Take 1 Kateryna n Calcium 8-28 tablet (40 Seyb old 40 MG oral 00:00: mg total) - Tablet 00 by mouth Externa daily l Metformin Yes [id number] 1000mg Take 1 Kateryna HCl 1000 MG 8-28 tablet Seybol d oral Tablet 00:00: (1,000 mg - 00 total) by Externa mouth in l the morning and 1 tablet (1,000 mg total) in the evening. Take with meals. Metoprolol Yes [id number] 25mg Take 1 K elsey Tartrate 25 8-28 tablet (25 Se ybold MG oral 00:00: mg total) - Tablet 00 by mouth 2 Externa times l daily Atorvastati Yes [id number] 40mg Take 1 Kateryna n Calcium 8-28 tablet (40 Seyb old 40 MG oral 00:00: mg total) - Tablet 00 by mouth Externa daily l Metformin 2-0 Yes [id number] 1000mg Take 1 Kateryna HCl 1000 MG 8-28 tablet Seybol d oral Tablet 00:00: (1,000 mg - 00 total) by Externa mouth in l the morning and 1 tablet (1,000 mg total) in the evening. Take with meals. Metoprolol 2021-0 Yes [id number] 25mg Take 1 K elsey Tartrate 25 8-28 tablet (25 Se ybold MG oral 00:00: mg total) - Tablet 00 by mouth 2 Externa times l daily Atorvastati 2021-0 Yes [id number] 40mg Take 1 Kateryna n Calcium 8-28 tablet (40 Seyb old 40 MG oral 00:00: mg total) - Tablet 00 by mouth Externa daily l Metformin 2021-0 Yes [id number] 1000mg Take 1 Kateryna HCl 1000 MG 8-28 tablet Seybol d oral Tablet 00:00: (1,000 mg - 00 total) by Externa mouth in l the morning and 1 tablet (1,000 mg total) in the evening. Take with meals. Metoprolol 2021-0 Yes [id number] 25mg Take 1 K elsey Tartrate 25 8-28 tablet (25 Se ybold MG oral 00:00: mg total) - Tablet 00 by mouth 2 Externa times l daily Atorvastati 2021-0 Yes [id number] 40mg Take 1 Kateryna n Calcium 8-28 tablet (40 Seyb old 40 MG oral 00:00: mg total) - Tablet 00 by mouth Externa daily l Metformin 2021-0 Yes [id number] 1000mg Take 1 Kateryna HCl 1000 MG 8-28 tablet Seybol d oral Tablet 00:00: (1,000 mg - 00 total) by Externa mouth in l the morning and 1 tablet (1,000 mg total) in the evening. Take with meals. Metoprolol 2021-0 Yes [id number] 25mg Take 1 K elsey Tartrate 25 8-28 tablet (25 Se ybold MG oral 00:00: mg total) - Tablet 00 by mouth 2 Externa times l daily Atorvastati 2021-0 Yes [id number] 40mg Take 1 Kateryna n Calcium 8-28 tablet (40 Seyb old 40 MG oral 00:00: mg total) - Tablet 00 by mouth Externa daily l Metformin 2021-0 Yes [id number] 1000mg Take 1 Kateryna HCl 1000 MG 8-28 tablet Seybol d oral Tablet 00:00: (1,000 mg - 00 total) by Externa mouth in l the morning and 1 tablet (1,000 mg total) in the evening. Take with meals. Metoprolol 2021-0 Yes [id number] 25mg Take 1 K elsey Tartrate 25 8-28 tablet (25 Se ybold MG oral 00:00: mg total) - Tablet 00 by mouth 2 Externa times l daily Atorvastati 2021-0 Yes [id number] 40mg Take 1 Kateryna n Calcium 8-28 tablet (40 Seyb old 40 MG oral 00:00: mg total) - Tablet 00 by mouth Externa daily l Metformin 2021-0 Yes [id number] 1000mg Take 1 Kateryna HCl 1000 MG 8-28 tablet Seybol d oral Tablet 00:00: (1,000 mg - 00 total) by Externa mouth in l the morning and 1 tablet (1,000 mg total) in the evening. Take with meals. Metoprolol 2021-0 Yes [id number] 25mg Take 1 K elsey Tartrate 25 8-28 tablet (25 Se ybold MG oral 00:00: mg total) - Tablet 00 by mouth 2 Externa times l daily Atorvastati 2021-0 Yes [id number] 40mg Take 1 Kateryna n Calcium 8-28 tablet (40 Seyb old 40 MG oral 00:00: mg total) - Tablet 00 by mouth Externa daily l Metformin 2021-0 Yes [id number] 1000mg Take 1 Kateryna HCl 1000 MG 8-28 tablet Seybol d oral Tablet 00:00: (1,000 mg - 00 total) by Externa mouth in l the morning and 1 tablet (1,000 mg total) in the evening. Take with meals. Metoprolol 2021-0 Yes [id number] 25mg Take 1 K elsey Tartrate 25 8-28 tablet (25 Se ybold MG oral 00:00: mg total) - Tablet 00 by mouth 2 Externa times l daily Atorvastati 2021-0 Yes [id number] 40mg Take 1 Kateryna n Calcium 8-28 tablet (40 Seyb old 40 MG oral 00:00: mg total) - Tablet 00 by mouth Externa daily l Metformin 0 Yes [id number] 1000mg Take 1 Kateryna HCl 1000 MG 8-28 tablet Seybol d oral Tablet 00:00: (1,000 mg - 00 total) by Externa mouth in l the morning and 1 tablet (1,000 mg total) in the evening. Take with meals. Atorvastati 0 Yes [id number] 40mg Take 1 Kateryna n Calcium 8-28 tablet (40 Seyb old 40 MG oral 00:00: mg total) - Tablet 00 by mouth Externa daily l Atorvastati 0 Yes [id number] 40mg Take 1 Kateryna n Calcium 8-28 tablet (40 Seyb old 40 MG oral 00:00: mg total) - Tablet 00 by mouth Externa daily l Atorvastati Yes [id number] 40mg Take 1 Kateryna n Calcium 8-28 tablet (40 Seyb old 40 MG oral 00:00: mg total) - Tablet 00 by mouth Externa daily l Atorvastati Yes [id number] 40mg Take 1 Kateryna n Calcium 8-28 tablet (40 Seyb old 40 MG oral 00:00: mg total) - Tablet 00 by mouth Externa daily l Atorvastati Yes [id number] 40mg Take 1 Kateryna n Calcium 8-28 tablet (40 Seyb old 40 MG oral 00:00: mg total) - Tablet 00 by mouth Externa daily l Metformin 2021-0 2023- No [id number] 1000mg Take 1 Kateryna HCl 1000 MG 8-28 - tablet Seybo ld oral Tablet 00:00: 00:00 [...] 15mg Com 07-02 [facility] 00:00: - [facility] OrthoVisc OrthoVisc 0 No 15mg Com 07-02 [facility] 00:00: - [facility] OrthoVisc OrthoVisc 0 No 15mg Com 06-26 Spirit 00:00: - [facility] OrthoVisc OrthoVisc No 15mg Com 06-26 [facility] 00:00: - [facility] Duloxetine Yes 120mg Take 120 [...] lsey HCl 60 MG 6-02 mg by ybdayanna oral Cap 00:00: mouth - Particles 00 daily Externa l Eszopiclone 0 Yes TAKE 1 Keisha ey 2 MG oral 6-02 TABLET BY Seybo ld Tablet 00:00: MOUTH ONCE - 00 DAILY Externa IMMEDIATEL l Y BEFORE BEDTIME NEEDED Eszopiclone 2021-0 2022- No TAKE 1 Dre sey 2 MG oral 6-02 04-18 TABLET BY Seyb old Tablet 00:00: 00:00 MOUTH ONCE - 00 :00 DAILY Externa IMMEDIATEL l Y BEFORE BEDTIME NEEDED Flomax 0.4 Flomax 0.4 2022- No 1{capsu QD Flomax 0.4 MG MG 5- 08-20 le} MG 00:00: 00:00 00 :00 Bupivicaine Bupivicaine 2021-0 No 2.5mg Common [place] 4-19 Spirit 00:00: - [facility] Kenalog Kenalog 2021-0 No 40mg Common (Triamcinol (Triamcinol 4-19 S pirit one) one) 00:00: - [facility] Bupivicaine Bupivicaine 2021-0 No 2.5mg Common [place] 4-19 [facility] 00:00: - [facility] Kenalog Kenalog 2021-0 No 40mg Common (Triamcinol (Triamcinol 4-19 S pirit one) one) 00:00: - [facility] Trazodone 2-0 Yes 1{tbl} QD Take 1 [...] 00 daily as Externa needed l Alprazolam 2-0 Yes .5mg QD Take 0.5 Dre sey 0.5 MG oral 4-04 mg by Seybold Tablet 00:00: mouth - 00 daily as Externa needed l Alprazolam 2-0 Yes .5mg QD Take 0.5 Dre sey 0.5 MG oral 4-04 mg by Seybold Tablet 00:00: mouth - 00 daily as Externa needed l Alprazolam 2-0 Yes .5mg QD Take 0.5 Dre sey 0.5 MG oral 4-04 mg by Seybold Tablet 00:00: mouth - 00 daily as Externa needed l Alprazolam 2021-0 Yes .5mg QD Take 1 Kelse y 0.5 MG oral 4-04 tablet Seybol d Tablet 00:00: (0.5 mg - 00 total) by Externa mouth l daily as needed Alprazolam 2-0 Yes .5mg QD Take 1 Kelse y 0.5 MG oral 4-04 tablet Seybol d Tablet 00:00: (0.5 mg - 00 total) by Externa mouth l daily as needed Alprazolam 2-0 Yes .5mg QD Take 1 Kelse y 0.5 MG oral 4-04 tablet Seybol d Tablet 00:00: (0.5 mg - 00 total) by Externa mouth l daily as needed. Alprazolam 2-0 Yes .5mg QD Take 1 Kelse y 0.5 MG oral 4-04 tablet Seybol d Tablet 00:00: (0.5 mg - 00 total) by Externa mouth l daily as needed. Alprazolam 2-0 Yes .5mg QD Take 1 Kelse y 0.5 MG oral 4-04 tablet Seybol d Tablet 00:00: (0.5 mg - 00 total) by Externa mouth l daily as needed. Alprazolam 2-0 Yes .5mg QD Take 0.5 Dre sey 0.5 MG oral 4-04 mg by Seybold Tablet 00:00: mouth - 00 daily as Externa needed l Atorvastati Atorvastati 2021-0 No 1{table QD Atorvastat n Calcium n Calcium 3-23 t} in Calcium 40 MG 40 MG 00:00: 40 MG 00 Atorvastati Atorvastati No 1{table QD Atorvastat n Calcium n Calcium 3-23 t} in Calcium 40 MG 40 MG 00:00: 40 MG 00 Nitrofurant Yes [id number] 100mg Take 1 Kateryna oin Monohyd 1-20 capsule Seybo ld Macro 100 00:00: (100 mg - MG oral 00 total) by Externa Capsule mouth 2 l times daily Nitrofurant Yes [id number] 100mg Take 1 Kateryna oin Monohyd 1-20 capsule Seybo ld Macro 100 00:00: (100 mg - MG oral 00 total) by Externa Capsule mouth 2 l times daily Nitrofurant Yes [id number] 100mg Take 1 Kateryna oin Monohyd 1-20 capsule Seybo ld Macro 100 00:00: (100 mg - MG oral 00 total) by Externa Capsule mouth 2 l times daily Nitrofurant 2022- No [id number] 100mg Take 1 Kateryna oin Monohyd 1-20 [...] mouth 3 52 times daily Albuterol Yes [id number] 2{puff} Q.25D Inhale 2 Kateryna HFA 108 (90 1-17 puffs into Se ybold Base) 00:00: the lungs - MCG/ACT IN 00 every 6 Editor Managing Director a AERS hours as l needed for wheezing Albuterol 0 Yes [id number] 2{puff} Q.25D Inhale 2 Kateryna HFA 108 (90 1-17 puffs into Se ybold [employer]) 00:00: the lungs - MCG/ACT IN 00 every 6 Editor Managing Director a AERS hours as l needed for wheezing Albuterol Yes [id number] 2{puff} Q.25D Inhale 2 Kateryna HFA 108 (90 1-17 puffs into Se ybold [employer]) 00:00: the lungs - MCG/ACT IN 00 every 6 Editor Managing Director a AERS hours as l needed for wheezing Albuterol Yes [id number] 2{puff} Q.25D Inhale 2 Kateryna HFA 108 (90 1-17 puffs into Se ybold [employer]) 00:00: the lungs - MCG/ACT IN 00 every 6 Editor Managing Director a AERS hours as l needed for wheezing Albuterol 0 Yes [id number] 2{puff} Q.25D Inhale 2 Kateryna HFA 108 (90 1-17 puffs into Se ybold [employer]) 00:00: the lungs - MCG/ACT IN 00 every 6 Editor Managing Director a AERS hours as l needed for wheezing Albuterol 0 Yes [id number] 2{puff} Q6H Inhale 2 Kateryna HFA 108 (90 1-17 puffs into Se ybold [employer]) 00:00: the lungs MCG/ACT IN 00 every 6 AERS hours as needed for wheezing Albuterol 0 Yes [id number] 2{puff} Q.25D Inhale 2 Kateryna HFA 108 (90 1-17 puffs into Se ybold [employer]) 00:00: the lungs - MCG/ACT IN 00 every 6 Editor Managing Director a AERS hours as l needed for wheezing Lidocaine Yes USE Kateryna Pain Relief 1-05 DIRECTED Seyb old 4 % apply 00:00: 12 HOURS - externally 00 ON AND 12 Exte rna Patch HOURS OFF l Lidocaine Yes USE Kateryna Pain Relief 1-05 DIRECTED [...] ON AND 12 Patch HOURS OFF Lidocaine 2-0 Yes USE Kateryna Pain Relief 1-05 DIRECTED Seyb old 4 % apply 00:00: 12 HOURS - externally 00 ON AND 12 Exte rna Patch HOURS OFF l Lidocaine 2-0 Yes USE Kateryna Pain Relief 1-05 DIRECTED Seyb old 4 % apply 00:00: 12 HOURS - externally 00 ON AND 12 Exte rna Patch HOURS OFF l Lidocaine 2022-0 Yes USE Kateryna Pain Relief 1-05 DIRECTED Seyb old 4 % apply 00:00: 12 HOURS - externally 00 ON AND 12 Exte rna Patch HOURS OFF l Lidocaine 2-0 Yes USE Kateryna Pain Relief 1-05 DIRECTED Seyb old 4 % apply 00:00: 12 HOURS - externally 00 ON AND 12 Exte rna Patch HOURS OFF l Lidocaine 2-0 Yes USE Kateryna Pain Relief 1-05 DIRECTED Seyb old 4 % apply 00:00: 12 HOURS - externally 00 ON AND 12 Exte rna Patch HOURS OFF l Lidocaine 2-0 Yes USE Kateryna Pain Relief 1-05 DIRECTED Seyb old 4 % apply 00:00: 12 HOURS - externally 00 ON AND 12 Exte rna Patch HOURS OFF l Lidocaine 2-0 Yes Kateryna Pain Relief 1-05 Seybold 4 % apply 00:00: - externally 00 Externa Patch l Lidocaine 2021-0 Yes Kateryna Pain Relief 1-05 Seybold 4 % apply 00:00: - externally 00 Externa Patch l Lidocaine 2-0 Yes Kateryna Pain Relief 1-05 Seybold 4 % apply 00:00: - externally 00 Externa Patch l Lidocaine 2021-0 Yes USE Kateryna Pain [...] 50 MG oral - Seybold Capsule 00:00: - 00 Externa l Doxepin HCl 2020-11 Yes Kateryna 50 MG oral -27 Seybold Capsule 00:00: - 00 Externa l Doxepin HCl 2020-11 Yes Kateryna 50 MG oral - Seybold Capsule 00:00: 00 Doxepin HCl 2020-11 Yes Kateryna 50 MG oral -27 Seybold Capsule 00:00: - 00 Externa l Doxepin HCl 2020-11- No Kelse y 50 MG oral 12-06- Seybold Capsule 00:00: 00:00 - 00 :00 Externa l Zolpidem Yes 12.5mg Take 12.5 Ke [...] 00 bedtime Exter na l Zolpidem 0 2022- No 12.5mg Take 12.5 K elsey Tartrate 4-12 01-18 mg by Seybold 12.5 MG 00:00: 00:00 mouth at - oral Tab CR 00 :00 bedtime Exter na l Lidocaine 5 Yes APPLY Kelse y % apply 4-02 EXTERNALLY Seybol d externally 00:00: TO LOWER - Ointment 00 BACK PAIN Editor Managing Director a SENSITIVE l AREA TWICE A DAY NEEDED Lidocaine 5 Yes APPLY Kelse y % apply 4-02 EXTERNALLY Seybol d externally 00:00: TO LOWER - Ointment 00 BACK PAIN Editor Managing Director a SENSITIVE l AREA TWICE A DAY NEEDED Lidocaine 5 Yes APPLY Kelse y % apply 4-02 EXTERNALLY Seybol d externally 00:00: TO LOWER Ointment 00 BACK PAIN SENSITIVE AREA TWICE A DAY NEEDED Lidocaine 5 0 Yes APPLY Kelse y % apply 4-02 EXTERNALLY Seybol d externally 00:00: TO LOWER - Ointment 00 BACK PAIN Editor Managing Director a SENSITIVE l AREA TWICE A DAY NEEDED Lidocaine 5 2020-0 2023- No APPLY Keisha ey % apply 4-02 -18 EXTERNALLY Seybo ld externally 00:00: 00:00 TO LOWER - Ointment 00 :00 BACK PAIN Editor Managing Director a SENSITIVE l AREA TWICE A DAY NEEDED HYDROcodone Yes TAKE 1 Keisha ey -Acetaminop 3-24 TABLET BY Rosalba siddiqi ([employer]) 00:00: MOUTH - 5-325 MG 00 TWICE Externa oral Tablet DAILY l NEEDED FOR 15 DAYS HYDROcodone Yes TAKE 1 Keisha ey -Acetaminop 3-24 TABLET BY Rosalba siddiqi ([employer]) 00:00: MOUTH - 5-325 MG 00 TWICE Externa oral Tablet DAILY l NEEDED FOR 15 DAYS HYDROcodone Yes TAKE 1 Keisha ey -Acetaminop 3-24 TABLET BY Rosalba siddiqi ([employer]) 00:00: MOUTH 5-325 MG 00 TWICE oral Tablet DAILY NEEDED FOR 15 DAYS HYDROcodone 0 Yes TAKE 1 Keisha ey -Acetaminop 3-24 TABLET BY Rosalba siddiqi ([employer]) 00:00: MOUTH - 5-325 MG 00 TWICE Externa oral Tablet DAILY l NEEDED FOR 15 DAYS HYDROcodone 2020-0 2023- No TAKE 1 Dre sey -Acetaminop 3-24 -18 TABLET BY Se oliverio siddiqi ([employer]) 00:00: 00:00 MOUTH - 5-325 MG 00 :00 TWICE Externa oral Tablet DAILY l NEEDED FOR 15 DAYS Simvastatin 2020-0 Yes every 24 Ke lsey 40 MG oral 3-02 hours Seybold Tablet 00:00: 00 Metoprolol 0 Yes 1{tbl} Take 1 Dre sey Tartrate 50 2-26 tablet by Semisael bold MG oral 00:00: mouth Tablet 00 [...] 1000 MG t_with_ HCl 1000 a_meal} MG Doxepin HCl Doxepin HCl No 1{capsu QD Doxepin 50 MG 50 MG le_at_b HCl 50 MG edtime} glipiZIDE glipiZIDE No 1{table QD glipiZIDE ER 5 MG ER 5 MG t_with_ ER 5 MG food} HYDROcodone HYDROcodone No HYDROcodon -Acetaminop -Acetaminop e-Acetamin hen 10-325 hen 10-325 ophen MG MG 10-325 MG Zolpidem Zolpidem No 1{table QD Zolpidem Tartrate ER Tartrate ER t_at_be Tartrate 12.5 MG 12.5 MG dtime_a ER 12.5 MG s_neede d} Doxepin HCl Doxepin HCl No 1{capsu QD Doxepin 50 MG 50 MG le_at_b HCl 50 MG edtime} Sertraline Sertraline No 1{table QD Sertraline HCl 50 MG HCl 50 MG t} HCl 50 MG Aspir-Low Aspir-Low No 1{table QD Aspir-Low 81 MG 81 MG t} 81 MG Gabapentin Gabapentin No 1{capsu BID Gabapentin 300 MG 300 MG le} 300 MG Enalapril Enalapril No Enalapril Maleate 20 Maleate 20 Maleate 20 MG MG MG metFORMIN metFORMIN No 1{table BID metFORMIN HCl 1000 MG HCl 1000 MG t_with_ HCl 1000 a_meal} MG Metoprolol Metoprolol No 1{table BID Metoprolol Tartrate 50 Tartrate 50 t} Tartrate MG MG 50 MG Pantoprazol Pantoprazol No 1{table QD Pantoprazo e Sodium 40 e Sodium 40 t} le Sodium MG MG 40 MG tiZANidine tiZANidine No tiZANidine HCl 4 MG HCl 4 MG HCl 4 MG ALPRAZolam ALPRAZolam No ALPRAZolam 0.5 MG 0.5 MG 0.5 MG Diclofenac Diclofenac No Diclofenac Clotrimazol Clotrimazol No BID Clotrimazo e-Betametha e-Betametha le-Betamet sone 1-0.05 sone 1-0.05 hasone % % 1-0.05 % traZODone traZODone No 1{table QD traZODone HCl 50 MG HCl 50 MG t_at_be HCl 50 MG dtime_a s_neede d} Albuterol Albuterol No Albuterol Wellbutrin Wellbutrin No 1{table QD Wellbutrin XL 150 MG XL 150 MG t_in_th XL 150 MG e_morni ng} Mirtazapine Mirtazapine No 1{table QD Mirtazapin 7.5 MG 7.5 MG t_at_be e 7.5 MG dtime} buPROPion buPROPion No buPROPion HCl ER (XL) HCl ER (XL) HCl ER (XL) Immunizations Ordered Filled Immunization Date Status Comments [facility] e Immunization Name Name Influenza Virus 2022-09-04 Completed Kateryna Jenkins ybold Vaccine, Quad, Egg 00:00:00 - Exte rnal Free Influenza Virus 2022-09-04 Completed Kateryna Jenkins ybold Vaccine, Quad, Egg 00:00:00 - Exte rnal Free Influenza Virus 2022-09-04 Completed Kateryna Jenkins ybold Vaccine, Quad, Egg 00:00:00 - Exte [...] rnal Free Influenza Virus 2022-09-04 Completed Kateryna Jenkins ybold Vaccine, Quad, Egg 00:00:00 - Exte rnal Free Influenza Virus 2022-09-04 Completed Kateryna Se irizarryold Vaccine, Quad, Egg 00:00:00 - Exte rnal Free Influenza Virus 2022-09-04 Completed Kateryna ybold Vaccine, Quad, Egg 00:00:00 - Exte rnal Free Influenza Virus 2022-09-04 Completed Kateryna Se irizarryold Vaccine, Quad, Egg 00:00:00 - Exte rnal [...] Influenza Virus 2021-07-20 Completed Kateryna duron Vaccine, 00:00:00 - External Unspecified Formulation Influenza Virus 2021-07-20 Completed Kateryna Se ybold Vaccine, 00:00:00 - External Unspecified Formulation Influenza Virus 2021-07-20 Completed Kateryna Se ybold Vaccine, 00:00:00 - External Unspecified Formulation Influenza Virus 2021-07-20 Completed Kateryna Se ybold Vaccine, 00:00:00 - External Unspecified Formulation Influenza Virus 2021-07-20 Completed Kateryna Se ybold Vaccine, 00:00:00 - External Unspecified Formulation Influenza Virus 2021-07-20 Completed Kateryna Se ybold Vaccine, 00:00:00 - External Unspecified Formulation Influenza Virus 2021-07-20 Completed Kateryna Se ybold Vaccine, 00:00:00 - External Unspecified Formulation Influenza Virus 2021-07-20 Completed Kateryna Se ybold Vaccine, 00:00:00 - External Unspecified Formulation Influenza Virus 2021-07-20 Completed Kateryna Se ybold Vaccine, 00:00:00 - External Unspecified Formulation Moderna COVID-19 Moderna COVID-19 2021-03-09 Completed [facility] Vaccine 11:49:00 - [facility] Covid-19 Vaccine 2021-03-09 Completed Kateryna fair Moderna (Spikevax), 00:00:00 - Ext ernal Mrna-lnp, Tito Protein, Pf Covid-19 Vaccine 2021-03-09 Completed Kateryna interianold Moderna (Spikevax), 00:00:00 - Ext ernal Mrna-lnp, Tito Protein, Pf Covid-19 Vaccine 2021-03-09 Completed Kateryna fair Moderna (Spikevax), 00:00:00 - Ext ernal Mrna-lnp, Tito Protein, Pf Covid-19 Vaccine 2021-03-09 Completed Kateryna Radford eyloki Moderna (Spikevax), 00:00:00 - Ext ernal Mrna-lnp, Tito Protein, Pf Covid-19 Vaccine 2021-03-09 Completed Kateryna Radford eyhemalld Moderna (Spikevax), 00:00:00 - Ext ernal Mrna-lnp, Tito Protein, Pf Covid-19 Vaccine 2021-03-09 Completed Kateryna fair Moderna (Spikevax), 00:00:00 - Ext ernal Mrna-lnp, Tito Protein, Pf Covid-19 Vaccine 2021-03-09 Completed Kateryna fair (Moderna), 00:00:00 Mrna-lnp, Tito Protein, Pf, 100 Mcg/0.5ml,IM Covid-19 Vaccine [...] Moderna COVID-19 2021-02-07 Completed [facility] Vaccine Vaccine 11:48:00 - [facility] Covid-19 Vaccine 2021-02-07 Completed Kateryna [...] Pf Covid-19 Vaccine 2021-02-07 Completed Kateryna fiar Moderna (Spikevax), 00:00:00 - Ext ernal Mrna-lnp, Tito Protein, Pf Covid-19 Vaccine 2021-02-07 Completed Kateryna fair Moderna (Spikevax), 00:00:00 - Ext ernal Mrna-lnp, Tito Protein, Pf Covid-19 Vaccine 2021-02-07 Completed Kateryna fair Moderna (Spikevax), 00:00:00 - Ext ernal Mrna-lnp, Tito Protein, Pf Covid-19 Vaccine 2021-02-07 Completed Kateryna fair (Moderna), 00:00:00 Mrna-lnp, Tito Protein, Pf, 100 Mcg/0.5ml,IM Covid-19 Vaccine 2021-02-07 Completed Kateryna fair Moderna (Spikevax), 00:00:00 - Ext ernal Mrna-lnp, Tito Protein, Pf Covid-19 Vaccine 2021-02-07 Completed Kateryna fair Moderna (Spikevax), 00:00:00 - Ext ernal Mrna-lnp, Tito Protein, Pf Covid-19 Vaccine 2021-02-07 Completed Kateryna fair (Moderna), 00:00:00 Mrna-lnp, Tito Protein, Pf, 100 Mcg/0.5ml,IM Covid-19 Vaccine [...] Pf Afluria Afluria 2021-01-08 Completed [facility] 11:48:00 - [facility] Influenza, 2021-01-08 Completed Kateryna Gauthier Seasonal, 00:00:00 - External Injectable, Preservative Free Influenza, 2021-01-08 Completed Kateryna Gauthier Seasonal, 00:00:00 - External Injectable, Preservative Free Influenza, 2021-01-08 Completed Kateryna Gauthier Seasonal, 00:00:00 - External Injectable, Preservative Free Influenza, 2021-01-08 Completed Kateryna Gauthier Seasonal, 00:00:00 - External Injectable, Preservative Free Influenza, 2021-01-08 Completed Kateryna Gauthier Seasonal, 00:00:00 - External Injectable, Preservative Free Influenza, 2021-01-08 Completed Kateryna Gauthier Seasonal, 00:00:00 - External Injectable, Preservative Free Influenza, 2021-01-08 Completed Kateryna Gauthier Seasonal, 00:00:00 - External Injectable, Preservative Free Influenza, 2021-01-08 Completed Kateryna Gauthier Seasonal, 00:00:00 - External Injectable, Preservative Free Influenza, 2021-01-08 Completed Kateryna Gauthier Seasonal, 00:00:00 - External Injectable, Preservative Free Influenza, 2021-01-08 Completed Kateryna Gauthier Seasonal, 00:00:00 - External Injectable, Preservative Free Influenza, 2021-01-08 Completed Kateryna Gauthier Seasonal, 00:00:00 - External Injectable, Preservative Free Influenza, 2021-01-08 Completed Kateryna Gauthier Seasonal, 00:00:00 - External Injectable, Preservative Free Influenza, 2021-01-08 Completed Kateryna Gauthier Seasonal, 00:00:00 Injectable, Preservative Free Influenza, 2021-01-08 Completed Kateryna Gauthier Seasonal, 00:00:00 Injectable, Preservative Free Influenza, 2021-01-08 Completed Kateryna Gauthier Seasonal, 00:00:00 - External Injectable, Preservative Free Influenza, 2021-01-08 Completed Kateryna Gauthier Seasonal, 00:00:00 - External Injectable, Preservative Free Influenza, 2021-01-08 Completed Kateryna Gauthier Seasonal, 00:00:00 - External Injectable, Preservative Free Influenza, 2021-01-08 Completed Kateryna Gauthier Seasonal, 00:00:00 - External Injectable, Preservative Free Influenza, 2021-01-08 Completed Kateryna Gauthier Seasonal, 00:00:00 - External Injectable, Preservative Free Influenza, 2021-01-08 Completed Kateryna Gauthier Seasonal, 00:00:00 - External Injectable, Preservative Free Influenza, 2021-01-08 Completed Kateryna Gauthier Seasonal, 00:00:00 - External Injectable, Preservative Free Influenza, 2021-01-08 Completed Kateryna Gauthier Seasonal, 00:00:00 - External Injectable, Preservative Free Influenza, 2021-01-08 [facility]00 - External Injectable, Preservative Free Influenza, 2021-01-08 [facility], 00:00:00 - External Injectable, Preservative Free Covid-19 Vaccine Unknown Completed [facility] Moderna (Spikevax), - Ext ernal Mrna-lnp, Tito Protein, Pf Influenza, Unknown Com[facility], - External Injectable, Preservative Free Influenza, Unknown Completed Kateryna [facility] Seasonal, - External Injectable, Preservative Free Covid-19 Vaccine Unknown Completed [facility] Moderna (Spikevax), - Ext ernal Mrna-lnp, Tito Protein, Pf Covid-19 Vaccine Unknown Completed [facility] Moderna (Spikevax), - Ext ernal Mrna-lnp, Tito Protein, Pf Covid-19 Vaccine Unknown Completed [facility] Moderna (Spikevax), - Ext ernal Mrna-lnp, Tito Protein, Pf Covid-19 Vaccine Unknown Completed [facility] Moderna (Spikevax), - Ext ernal Mrna-lnp, Tito Protein, Pf Influenza Virus Unknown Completed [facility] Vaccine, Quad, Egg - Exte rnal Free Influenza Virus Unknown Completed [facility] Vaccine, - External Unspecified Formulation Covid-19 Vaccine Unknown Completed [facility] Sanjeeva (Spikevax), - Ext ernal Mrna-lnp, Tito Protein, Pf Covid-19 Vaccine Unknown Completed [facility] Moderna (Spikevax), - Ext ernal Mrna-lnp, Tito Protein, Pf Influenza, Unknown Completed [facility] Seasonal, - External Injectable, Preservative Free Influenza, Unknown Completed [facility] Seasonal, - External Injectable, Preservative Free Covid-19 Vaccine Unknown Completed [facility] Moderna (Spikevax), - Ext ernal Mrna-lnp, Tito Protein, Pf Covid-19 Vaccine Unknown Completed [facility] Sanjeeva (Spikevax), - Ext ernal Mrna-lnp, Tito Protein, Pf Covid-19 Vaccine Unknown Completed Kateryna Pacea (Spikevax), - Ext ernal Mrna-lnp, Tito Protein, Pf Covid-19 Vaccine Unknown Completed Kateryna Pacea (Spikevax), - Ext ernal Mrna-lnp, Tito Protein, Pf Influenza Virus Unknown Completed Kateryna duron Vaccine, Quad, Egg - Exte rnal Free Influenza Virus Unknown Completed Kateryna duron Vaccine, - External Unspecified Formulation Covid-19 Vaccine Unknown Completed Kateryna Pacea (Spikevax), - Ext ernal Mrna-lnp, Tito Protein, Pf Moderna COVID-19 Moderna COVID-19 Unknown Completed [facility] Vaccine - [facility] Moderna COVID-19 Moderna COVID-19 Unknown Completed [facility] Vaccine Vaccine - [facility] Afluria Afluria Unknown Completed [facility] Vital Signs Vital Name Observation Time Observation Value Comments Source Systolic blood 2023-07-24 13:36:00 115 mm[Hg] Kateryna Jenkinsybold - pressure External Diastolic blood 2023-07-24 13:36:00 66 mm[Hg] Allison douglas Seybold - pressure External Heart rate 2023-07-24 13:36:00 57 /min Kateryna Radford manjula - External Body temperature 2023-07-24 13:36:00 36.78 Leslie Keisha cai Seoliverio - External Respiratory rate 2023-07-24 13:36:00 18 /min Keisha trell Gauthier - External Body height 2023-07-24 13:36:00 162.6 cm Kateryna S manjula - External Body weight 2023-07-24 13:36:00 105.235 kg Kateryna Radford manjula - External BMI 2023-07-24 13:36:00 39.82 kg/m2 Kateryna S manjula - External Oxygen saturation in 2023-07-24 13:36:00 100 /min Kateryna Gauthier - Arterial blood by External Pulse oximetry Systolic blood 2023-07-01 19:18:00 106 mm[Hg] Kateryna Jenkinsybold - pressure External Diastolic blood 2023-07-01 19:18:00 68 mm[Hg] Drese misael Seybold - pressure External Heart rate 2023-07-01 19:18:00 64 /min Kateryna S eybold - External Body temperature 2023-07-01 19:18:00 36.44 Leslie Keisha ey Seybold - External Respiratory rate 2023-07-01 19:18:00 16 /min Keisha ey Seybold - External Body height 2023-07-01 19:18:00 162.6 cm Kateryna S eybold - External Body weight 2023-07-01 19:18:00 107.049 kg Kateryna S eybold - External BMI 2023-07-01 19:18:00 40.51 kg/m2 Kateryna S eybold - External Oxygen saturation in 2023-07-01 19:18:00 97 /min Kateryna Seoliverio - Arterial blood by External Pulse oximetry Body height 2023-03-07 16:34:00 162.6 cm Kateryna S eybold - External Body weight 2023-03-07 16:34:00 101.606 kg Kateryna S eybold - External BMI 2023-03-07 16:34:00 38.45 kg/m2 Kateryna S eybold - External Systolic blood 2023-02-25 18:28:00 113 mm[Hg] Kateryna Seybold - pressure External Diastolic blood 2023-02-25 18:28:00 77 mm[Hg] Drese y Seybold - pressure External Heart rate 2023-02-25 18:28:00 64 /min Kateryna S eybold - External Body temperature 2023-02-25 18:28:00 36.56 Leslie Keisha ey Seybold - External Respiratory rate 2023-02-25 18:28:00 15 /min Keisha ey Seybold - External Body height 2023-02-25 18:28:00 162.6 cm Kateryna S eybold - External Body weight 2023-02-25 18:28:00 103.874 kg Kateryna S eybold - External BMI 2023-02-25 18:28:00 39.31 kg/m2 Kateryna S eybold - External Oxygen saturation in 2023-02-25 18:28:00 98 /min Kateryna Disha - Arterial blood by External Pulse oximetry Body height 2023-01-15 17:25:00 162.6 cm Kateryna Radford eybold - External Body weight 2023-01-15 17:25:00 95.255 kg Kateryna Radford eybold - External BMI 2023-01-15 17:25:00 36.05 kg/m2 Kateryna Radford eybold - External Body height 2022-12-19 15:30:00 162.6 cm Kateryna Radford eybold - External Body weight 2022-12-19 15:30:00 95.255 kg Kateryna Radford eybold - External BMI 2022-12-19 15:30:00 36.05 kg/m2 Kateryna Radford eybold - External Systolic blood 2022-11-27 19:13:00 122 mm[Hg] Kateryna Seybold - pressure External Diastolic blood 2022-11-27 19:13:00 83 mm[Hg] Drese y Seybold - pressure External Heart rate 2022-11-27 19:13:00 64 /min Kateryna Radford eybold - External Body temperature 2022-11-27 19:13:00 36.56 Leslie Keisha ey Seybold - External Respiratory rate 2022-11-27 19:13:00 14 /min Keisha ey Seybold - External Body height 2022-11-27 19:13:00 162.6 cm Kateryna Radford eybold - External Body weight 2022-11-27 19:13:00 99.791 kg Kateryna Radford eybold - External BMI 2022-11-27 19:13:00 37.76 kg/m2 Kateryna Radford eybold - External Oxygen saturation in 2022-11-27 19:13:00 99 /min Kateryna Seedieold - Arterial blood by External Pulse oximetry [...] Body height 2022-09-25 14:59:00 162.6 cm Kateryna Radford eybold - External Body weight 2022-09-25 14:59:00 [...] saturation in 2022-09-09 14:27:00 99 /min Kateryna Jenkinsediedayanna - Arterial blood by External Pulse oximetry Systolic blood 2021-11-26 16:51:00 114 mm[Hg] Kaetryna Seybold pressure Diastolic blood 2021-11-26 16:51:00 76 mm[Hg] Kelse y Seybold pressure Heart rate 2021-11-26 16:51:00 80 /min Kateryna S eybold Body temperature 2021-11-26 16:51:00 35.78 Leslie Keisha ey Seybold Respiratory rate 2021-11-26 16:51:00 16 /min Keisha ey Seybold Body height 2021-11-26 16:51:00 162.6 cm Kateryna S eybold Body weight 2021-11-26 16:51:00 115.667 kg Kateryna S eybold BMI 2021-11-26 16:51:00 43.77 kg/m2 Kateryna S eybold Procedures Procedure Date / Time Performed Performing Clinician [facility] PELVIS 2022-12-19 16:47:51 Gus Neri ld - External Encounters Start End Encounter Admission Attending Care Care Encounter Source Date/Time Date/Time Type Type Clinicians Facility Department ID 2023-03-24 Outpatient Sabino STSTEPHEN STLMLC [id number] Common 15:49:01 Darius [id number] [facility] 2023-03-11 Outpatient Sabino STSTEPHEN STLMLC [id number] Common 09:16:01 Darius [id number] [facility] 2022-08-15 Outpatient Sabino STPRATIKLC STLMLC [id number] Common 09:14:03 Darius [id number] [facility] 2022-06-18 Outpatient Sabino STPRATIKLC STLMLC [id number] Common 08:34:02 Darius [facility] 2022-03-12 Outpatient Wing, STLMLC STLMLC [id number] Common 16:48:01 Avnee [facility] 2022-02-27 Outpatient Wing, STLMLC STLMLC [id number] Common 09:15:02 Avnee [facility] 2022-02-26 Outpatient Wing, STLMLC STLMLC [id number] Common 13:41:03 Avnee [facility] 2022-02-12 Outpatient Wing, STLMLC STLMLC [id number] Common 14:26:01 Avnee [facility] 2022-02-08 Outpatient Wing, STLMLC STLMLC [id number] Common 14:54:01 Avnee [facility] 2022-01-30 Outpatient Wing, STLMLC STLMLC [id number] Common 07:54:01 Avnee [facility] 2022-01-28 Outpatient Wing, STLMLC STLMLC [id number] Common 10:38:01 Avnee [facility] 2022-01-21 Outpatient Wing, STLMLC STLC [id number] Common 15:25:01 Avnee [facility] 2022-01-15 Outpatient Wing, STLMLC STLC [id number] Common 09:32:04 Avnee [facility] 2022-01-14 Outpatient Wing, STLMLC STLC [id number] Common 10:53:02 Avnee [facility] 2022-01-11 Outpatient Wing, STLMLC STLC [id number] Common 15:37:01 Avnee [facility] 2021-12-05 Outpatient Wing, STLMLC STLC [id number] Common 14:28:58 Avnee [id number] [facility] 2021-12-05 Outpatient Wing, STLC STLC [id number] Common 14:24:55 Avnee [id number] [facility] 2021-12-05 Outpatient Wing, STLC STLC [id number] Common 14:21:24 Avnee [id number] [facility] 2024-01-14 2024-01-14 Outpatient KATERYNA SANTANA [id number] Kateryna 16:00:00 16:00:00 DARIUSZ Seybol d 2023-12-08 2023-12-08 Outpatient KATERYNA DOUGHERTY [id number] Kateryna 10:20:00 10:20:00 CITLALLI Seybo ld 2023-09-24 2023-09-24 Outpatient KATERYNA FOSTER [id number] Kateryna 10:15:00 10:15:00 GEORGINA Seybol d 2023-09-04 2023-09-04 Outpatient KATERYNA GALLO [id number] Kateryna 00:00:00 00:00:00 DARIUS Seybol d 2023-09-03 2023-09-03 Outpatient KATERYNA JEFFERS [id number] Kateryna 09:45:00 09:45:00 ATASU Seybol d 2023-08-25 2023-08-25 Outpatient GUS NERI KATERYNA STEELESEY [id number] Kateryna 00:00:00 00:00:00 Seybol d 2023-08-25 2023-08-25 Outpatient SABINO KATERYNA MITCHELL [id number] Kateryna 00:00:00 00:00:00 DARIUS Seybol d 2023-08-19 2023-08-19 Outpatient KATERYNA MITCHELL [id number] Kateryna 10:30:00 10:30:00 Seybol d 2023-08-19 2023-08-19 Outpatient KATERYNA MITCHELL [id number] Kateryna 09:30:00 09:30:00 Seybol d 2023-08-19 2023-08-19 Outpatient KATERYNA MITCHELL [id number] Kateryna 09:00:00 09:00:00 Seybol d 2023-08-19 2023-08-19 Outpatient KATERYNA MITCHELL [id number] Kateryna 08:00:00 08:00:00 Seybol d 2023-08-07 2023-08-07 Outpatient KATERYNA JEFFERS [id number] Kateryna 11:00:00 11:00:00 ATASU Seybol d 2023-08-01 2023-08-01 Outpatient KATERYNA JUNE [id number] Kateryna 15:00:00 15:00:00 ARABELLA Seybol d 2023-08-01 2023-08-01 Outpatient KATERYNA JUNE [id number] Kateryna 15:00:00 15:00:00 ARABELLA Seybol d 2023-08-01 2023-08-01 Outpatient KATERYNA MITCHELL [id number] Kateryna 12:30:00 12:30:00 Seybol d 2023-07-30 2023-07-30 Outpatient KATERYNA FOSTER [id number] Kateryna 00:00:00 00:00:00 GEORGINA Seybol d 2023-07-24 2023-07-24 Outpatient KATERYNA ASTORGA [id number] Kateryna 15:00:00 15:00:00 ABHAY Seybo ld 2023-07-24 2023-07-24 Outpatient LAB45 KATERYNA MITCHELL [id number] Kateryna 09:45:00 09:45:00 Seybol d 2023-07-24 2023-07-24 Outpatient MAXKATERYNA [id number] Kateryna 08:30:00 08:30:00 DARIUSZ Seybol d 2023-07-23 2023-07-23 Outpatient SFA SFA [id number] Dave 11:23:53 11:23:53 0913 F Shamar 2023-07-17 2023-07-17 Outpatient KATERYNA GALLO [id number] Kateryna 00:00:00 00:00:00 DARIUS Seybol d 2023-07-12 2023-07-12 Outpatient KATERYNA GALLO [id number] Kateryna 00:00:00 00:00:00 DARIUS Seybol d 2023-07-10 2023-07-10 Outpatient KATERYNA JEFFERS [id number] Kateryna 13:15:00 13:15:00 ATASU Seybol d 2023-07-10 2023-07-10 Outpatient 39, HOLTER KATERYNA MITCHELL [id number] Kateryna 13:00:00 13:00:00 Seybol d 2023-07-09 2023-07-09 Outpatient [facility] [id number] Dave 11:37:42 11:37:42 0830 F Shamar 2023-07-03 2023-07-03 Outpatient KATERYNA FOSTER [id number] Kateryna 00:00:00 00:00:00 GEORGINA Seybol d 2023-07-03 2023-07-03 Outpatient MYKATERYNAONLilly MITCHELL [id number] Kateryna 00:00:00 00:00:00 MD QUE Seybol d 2023-07-02 2023-07-02 Outpatient KATERYNA FOSTER [id number] Kateryna 00:00:00 00:00:00 GEORGINA Seybol d 2023-07-01 2023-07-01 Outpatient LAB90 KATERYNA MITCHELL [id number] Kateryna 14:45:00 14:45:00 Seybol d 2023-07-01 2023-07-01 Outpatient KATERYNA FOSTER [id number] Kateryna 14:15:00 14:15:00 GEORGINA Seybol d 2023-07-01 2023-07-01 Outpatient KATERYNA GALLO [id number] Kateryna 00:00:00 00:00:00 DARIUS Seybol d 2023-06-27 2023-06-27 Outpatient KATERYNA FOSTER [id number] Kateryna 13:45:00 13:45:00 GEORGINA Seybol d 2023-06-26 2023-06-26 Outpatient SFA SFA [id number] Dave 09:07:56 09:07:56 0817 F Shamar 2023-06-24 2023-06-24 Outpatient SFA SFA [id number] Dave 08:21:08 08:21:08 0815 F Shamar 2023-06-23 2023-06-23 Outpatient KATERYNA MITCHELL [id number] Kateryna 00:00:00 00:00:00 Seybol d 2023-06-23 2023-06-23 Outpatient KATERYNA FOSTER [id number] Kateryna 00:00:00 00:00:00 GEORGINA Seybol d 2023-06-23 2023-06-23 Outpatient KATERYNA MITCHELL [id number] Kateryna 00:00:00 00:00:00 Seybol d 2023-06-12 2023-06-12 Outpatient SFA SFA [id number] Dave 13:39:43 13:39:43 0803 F Shamar 2023-06-10 2023-06-10 Outpatient SFA SFA [id number] Dave 08:22:41 08:22:41 0801 F Shamar 2023-05-28 2023-05-28 Outpatient GUS NERI [id number] Kateryna 00:00:00 00:00:00 Seybol d 2023-05-28 2023-05-28 Outpatient KATERYNA GALLO [id number] Kateryna 00:00:00 00:00:00 DARIUS Seybol d 2023-05-27 2023-05-27 Outpatient SFA SFA [id number] Dave 11:07:00 11:07:00 0718 F Shamar 2023-05-26 2023-05-26 Outpatient PREZAS, KATERYNA MITCHELL [id number] Kateryna 00:00:00 00:00:00 GEORGINA Seybol d 2023-05-22 2023-05-22 Outpatient SFA [facility] [id number] Dave 10:41:13 10:41:13 0713 Shell Ibanez 2023-05-21 2023-05-21 Outpatient PREZAS, KATERYNA MITCHELL [id number] Kateryna 00:00:00 00:00:00 GEORGINA Seybol d 2023-05-21 2023-05-21 Outpatient PREZAS, KATERYNA MITCHELL [id number] Kateryna 00:00:00 00:00:00 GEORGINA Seybol d 2023-05-20 2023-05-20 Outpatient PREZAS, KATERYNA MITCHELL [id number] Kateryna 00:00:00 00:00:00 GEORGINA Seybol d 2023-05-01 2023-05-01 Outpatient PREZAS, KATERYNA MITCHELL [id number] Kateryna 00:00:00 00:00:00 GEORGINA Seybol d 2023-04-30 2023-04-30 Outpatient LAB90 KATERYNA MITCHELL [id number] Kateryna 15:35:00 15:35:00 Seybol d 2023-04-30 2023-04-30 Outpatient ARTUR, RAMY MITCHELL [id number] Kateryna 14:30:00 14:30:00 Seybol d 2023-04-29 2023-04-29 Outpatient PREZAS, KATERYNA MITCHELL [id number] Kateryna 00:00:00 00:00:00 GEORGINA Seybol d 2023-04-21 2023-04-21 Outpatient NERI, GUS MITCHELL [id number] Kateryna 00:00:00 00:00:00 Seybol d 2023-04-16 2023-04-16 Outpatient NERI, GUS MITCHELL [id number] Kateryna 10:45:00 10:45:00 Seybol d 2023-04-09 2023-04-09 Outpatient NERI, GUS MITCHELL [id number] Kateryna 00:00:00 00:00:00 Seybol d 2023-04-03 2023-04-03 Outpatient KATERYNA FOSTER [id number] Kateryna 00:00:00 00:00:00 GEORGINA Seybol d 2023-04-01 2023-04-01 Outpatient KATERYNA MITCHELL [id number] Kateryna 00:00:00 00:00:00 Seybol d 2023-04-01 2023-04-01 Outpatient KATERYNA GALLO [id number] Kateryna 00:00:00 00:00:00 DARIUS Seybol d 2023-03-28 2023-03-28 Outpatient KATERYNA MITCHELL [id number] Kateryna 00:00:00 00:00:00 Seybol d 2023-03-28 2023-03-28 Outpatient KATERYNA FOSTER [id number] Kateryna 00:00:00 00:00:00 GEORGINA Seybol d 2023-03-26 2023-03-26 Outpatient ARTUR RAMY MITCHELL [id number] Kateryna 11:30:00 11:30:00 Seybol d 2023-03-26 2023-03-26 Outpatient LAB90 KATERYNA MITCHELL [id number] Kateryna 11:20:00 11:20:00 Seybol d 2023-03-26 2023-03-26 Outpatient KATERYNA FOSTER [id number] Kateryna 00:00:00 00:00:00 GEORGINA Seybol d 2023-03-24 2023-03-24 Outpatient KATERYNA FOSTER [id number] Kateryna 00:00:00 00:00:00 GEORGINA Seybol d 2023-03-12 2023-03-12 Outpatient KATERYNA FOSTER [id number] Kateryna 00:00:00 00:00:00 GEORGINA Seybol d 2023-03-07 2023-03-07 Outpatient GUS NERI [id number] Kateryna 13:15:00 13:15:00 Seybol d 2023-03-07 2023-03-07 Outpatient KATERYNA CARBAJAL [id number] Kateryna 00:00:00 00:00:00 NEO Seybol d 2023-03-03 2023-03-03 Outpatient KATERYNA FOSTER [id number] Kateryna 00:00:00 00:00:00 GEORGINA Seybol d 2023-03-03 2023-03-03 Outpatient KATERYNA FOSTER [id number] Kateryna 00:00:00 00:00:00 GEORGINA Seybol d 2023-03-03 2023-03-03 Outpatient PREKATERYNA LAUGHLIN [id number] Kateryna 00:00:00 00:00:00 GEORGINA Seybol d 2023-02-26 2023-02-26 Outpatient PREKATERYNA LAUGHLIN [id number] Kateryna 00:00:00 00:00:00 GEORGINA Seybol d 2023-02-26 2023-02-26 (TEL) [facility] [id number] Co mmon 00:00:00 00:00:00 [facility] 2023-02-25 2023-02-25 Outpatient LAB90 KATERYNA MITCHELL [id number] Kateryna 14:00:00 14:00:00 Seybol d 2023-02-25 2023-02-25 Outpatient KATERYNA FOSTER [id number] Kateryna 13:30:00 13:30:00 GEORGINA Seybol d 2023-02-25 2023-02-25 Outpatient KATERYNA MITCHELL [id number] Kateryna 00:00:00 00:00:00 Seybol d 2023-02-25 2023-02-25 Outpatient KATERYNA GALLO [id number] Kateryna 00:00:00 00:00:00 DARIUS Seybol d 2023-01-24 2023-01-24 Outpatient KATERYNA CHOI [id number] Kateryna 00:00:00 00:00:00 DARREL Seybol d 2023-01-21 2023-01-21 Outpatient YESSY MITCHELL [id number] Kateryna 00:00:00 00:00:00 MD QUE Seybol d 2023-01-20 2023-01-20 Outpatient KATERYNA MITCHELL [id number] Kateryna 07:30:00 07:30:00 Seybol d 2023-01-15 2023-01-15 Outpatient GUS NERISEY [id number] [place] 15:30:00 15:30:00 Seybol d 2023-01-13 2023-01-13 Outpatient KATERYNA MITCHELL [id number] [place] 11:15:00 11:15:00 Seybol d 2023-01-13 2023-01-13 Outpatient KATERYNA MITCHELL [id number] [place] 00:00:00 00:00:00 Seybol d 2023-01-13 2023-01-13 Outpatient KATERYNA MITCHELL [id number] [place] 00:00:00 00:00:00 Seybol d 2023-01-10 2023-01-10 Outpatient KATERYNA GALLO [id number] [place] 00:00:00 00:00:00 DARIUS Seybol d 2023-01-09 2023-01-09 Outpatient VELIA VALENZUELA [id number] [place] 11:30:00 11:30:00 Seybol d 2023-01-09 2023-01-09 Outpatient YESSY MITCHELL [id number] [place] 00:00:00 00:00:00 MD QUE Seybol d 2023-01-03 2023-01-03 Outpatient KATERYNA FOSTER [id number] [place] 00:00:00 00:00:00 GEORGINA Seybol d 2023-01-02 2023-01-02 Outpatient LAB90 KATERYNA MITCHELL [id number] [place] 08:45:00 08:45:00 Seybol d 2023-01-02 2023-01-02 Outpatient KATERYNA FOSTER [id number] [place] 00:00:00 00:00:00 GEORGINA Seybol d 2022-12-20 2022-12-20 Outpatient KATERYNA MITCHELL [id number] [place] 00:00:00 00:00:00 Seybol d 2022-12-19 2022-12-19 Outpatient KATERYNA CHOI [id number] [place] 14:00:00 14:00:00 DARREL Seybol d 2022-12-19 2022-12-19 Outpatient KATERYNA MITCHELL [id number] [place] 10:40:00 10:40:00 Seybol d 2022-12-19 2022-12-19 Outpatient GUS NERI KATERYNA MITCHELL [id number] [place] 08:00:00 08:00:00 Seybol d 2022-12-19 2022-12-19 Outpatient KATERYNA MITCHELL [id number] [place] 00:00:00 00:00:00 Seybol d 2022-12-12 2022-12-12 Outpatient PATENIA, KATERYNA MITCHELL [id number] [place] 09:30:00 09:30:00 DARREL Seybol d 2022-12-09 2022-12-09 Outpatient PREZAS, KATERYNA MITCHELL [id number] Kateryna 00:00:00 00:00:00 GEORGINA Seybol d 2022-12-05 2022-12-05 Outpatient PREZAS, KATERYNA MITCHELL [id number] [place]ater[place] 00:00:00 00:00:00 GEORGINA Seybol d 2022-11-27 2022-11-27 Outpatient PREZAS, KATERYNA MITCHELL [id number] Kateryna 13:30:00 13:30:00 GEORGINA Seybol d 2022-11-26 2022-11-26 Outpatient PREZAS, KATERYNA MITCHELL [id number] [place]ateryna 00:00:00 00:00:00 GEORGINA Seybol d 2022-11-19 2022-11-19 Outpatient LAB90 KATERYNA MITCHELL [id number] Kateryna 10:40:00 10:40:00 Seybol d 2022-11-18 2022-11-18 Outpatient KATERYNA GALLO [id number] [place] 00:00:00 00:00:00 DARIUS Seybol d 2022-11-14 2022-11-14 Outpatient PREZAS, KATERYNA MITCHELL [id number] [place] 11:30:00 11:30:00 GEORGINA Seybol d 2022-11-14 2022-11-14 Outpatient PREZASKATERYNA [id number] Kateryna 00:00:00 00:00:00 GEORGINA Seybol d 2022-11-13 2022-11-13 Outpatient PREZAS, KATERYNA MITCHELL [id number] Kateryna 00:00:00 00:00:00 GEORGINA Seybol d 2022-11-06 2022-11-06 Outpatient OU, KATERYNA MITCHELL [id number] Kateryna 09:15:00 09:15:00 CHRISTIANO Seyb old 2022-10-29 2022-10-29 Outpatient KATERYNA MITCHELL [id number] Kateryna 08:30:00 08:30:00 Seybol d 2022-10-25 2022-10-25 Outpatient KATERYNA GALLO [id number] [place] 00:00:00 00:00:00 DARIUS Seybol d 2022-09-25 2022-09-25 Outpatient KATERYNA MITCHELL [id number] Kateryna 10:05:00 10:05:00 Seybol d 2022-09-25 2022-09-25 Outpatient KATERYNA MITCHELL [id number] Kateryna 10:00:00 10:00:00 Seybol d 2022-09-25 2022-09-25 Outpatient KATERYNA MITCHELL [id number] Kateryna 09:55:00 09:55:00 Seybol d 2022-09-25 2022-09-25 Outpatient OU, KATERYNA MITCHELL [id number] [place]ateryna 09:00:00 09:00:00 CHRISTIANO Seyb old 2022-09-10 2022-09-10 Outpatient OU, KATERYNA MITCHELL [id number] [place] 10:00:00 10:00:00 CHRISTIANO Seyb old 2022-09-09 2022-09-09 Outpatient LAB90 KATERYNA MITCHELL [id number] Kateryna 10:15:00 10:15:00 Seybol d 2022-09-09 2022-09-09 Outpatient KATERYNA GALLO [id number] [place]yna 09:30:00 09:30:00 DARIUS Seybol d 2022-09-06 2022-09-06 Outpatient KATERYNA GALLO [id number] [place] 16:00:00 16:00:00 DARIUS Seybol d 2022-09-02 2022-09-02 Outpatient KATERYNA ROCK [id number] Kateryna 13:45:00 13:45:00 LATHA Seybol d 2022-08-15 2022-08-15 Outpatient KATERYNA GALLO [id number] [place] 00:00:00 00:00:00 DARIUS Seybol d 2022-07-10 2022-07-10 Outpatient KATERYNA GALLO [id number] [place]yna 00:00:00 00:00:00 DARIUS Seybol d 2022-07-09 2022-07-09 ambulatory STLMLC STLMLC [id number] Common 00:00:00 00:00:00 [facility] 2022-07-04 2022-07-04 ambulatory STLMLC STLMLC [id number] Common 00:00:00 00:00:00 [facility] 2022-07-03 2022-07-03 Outpatient KATERYNA GALLO [id number] Kateryna 00:00:00 00:00:00 DARIUS Seybol d 2022-07-02 2022-07-02 ambulatory STLMLC STLMLC [id number] Common 00:00:00 00:00:00 [facility] 2022-06-26 2022-06-26 Outpatient KATERYNA GALLO [id number] Kateryna 00:00:00 00:00:00 DARIUS Seybol d 2022-06-26 2022-06-26 ambulatory STLMLC STLMLC [id number] Common 00:00:00 00:00:00 [facility] 2022-06-12 2022-06-12 Outpatient KATERYNA GALLO [id number] [place]ater[place] 00:00:00 00:00:00 DARIUS Seybol d 2022-06-07 2022-06-07 Outpatient LAB90 KATERYNA MITCHELL [id number] [place] 16:10:00 16:10:00 Seybol d 2022-06-07 2022-06-07 Office Ramy Gallo [id number] [place]ater[place] 15:30:00 15:45:00 Visit Darius Sparks [id number] Se ediedayanna Lowery 1.2.7.2.686 [id number] 2022-05-15 2022-05-15 Outpatient KATERYNA GALLO [id number] [place] 00:00:00 00:00:00 DARIUS Radha zepeda 2022-05-10 2022-05-10 Office Ramy Gallo [id number] Kateryna 15:30:00 16:00:00 Visit Darius Sparks 350.1.13.13 oliverio Lowery 1.2.7.2.686 [id number] 2022-05-08 2022-05-08 ambulatory STLMLC STLMLC [id number] Common 00:00:00 00:00:00 [facility] 2022-04-16 2022-04-16 ambulatory STLMLC STLMLC [id number] Common 00:00:00 00:00:00 [facility] 2022-04-15 2022-04-15 ambulatory STLMLC STLMLC [id number] Common 00:00:00 00:00:00 [facility] 2022-03-28 2022-03-28 ambulatory STLMLC STLMLC [id number] Common 00:00:00 00:00:00 [facility] 2022-03-21 2022-03-21 ambulatory STLMLC STLMLC [id number] Common 00:00:00 00:00:00 [facility] 2022-03-13 2022-03-13 ambulatory STLMLC STLMLC [id number] Common 00:00:00 00:00:00 [facility] 2022-03-12 2022-03-12 ambulatory STLMLC STLMLC [id number] Common 00:00:00 00:00:00 [facility] 2022-02-26 2022-02-26 ambulatory STLMLC STLMLC [id number] Common 00:00:00 00:00:00 [facility] 2022-02-26 2022-02-26 ambulatory STLMLC STLMLC [id number] Common 00:00:00 00:00:00 [facility] 2022-02-12 2022-02-12 ambulatory STLMLC STLMLC [id number] Common 00:00:00 00:00:00 [facility] 2022-02-05 2022-02-05 ambulatory STLMLC STLMLC [id number] Common 00:00:00 00:00:00 [facility] 2022-01-30 2022-01-30 ambulatory STLMLC STLMLC [id number] Common 00:00:00 00:00:00 [facility] 2022-01-30 2022-01-30 ambulatory STLMLC STLMLC [id number] Common 00:00:00 00:00:00 [facility] 2022-01-30 2022-01-30 ambulatory STLMLC STLMLC [id number] Common 00:00:00 00:00:00 [facility] 2022-01-21 2022-01-21 ambulatory STLMLC STLMLC [id number] Common 00:00:00 00:00:00 [facility] 2022-01-21 2022-01-21 ambulatory STLMLC STLMLC [id number] Common 00:00:00 00:00:00 [facility] 2022-01-21 2022-01-21 ambulatory STLMLC STLMLC [id number] Common 00:00:00 00:00:00 [facility] 2022-01-18 2022-01-18 ambulatory STLMLC STLMLC [id number] Common 00:00:00 00:00:00 [facility] 2022-01-15 2022-01-15 ambulatory STLMLC STLMLC [id number] Common 00:00:00 00:00:00 [facility] 2022-01-08 2022-01-08 Outpatient KATERYNA GALLO [id number] [place] 00:00:00 00:00:00 DARIUS Seybol d 2021-12-27 2021-12-27 Outpatient KATERYNA GALLO [id number] [place] 00:00:00 00:00:00 DARIUS Seybol d 2021-12-25 2021-12-25 Outpatient KATERYNA GALLO [id number] [place] 00:00:00 00:00:00 DARIUS Seybol d 2021-12-09 2021-12-09 Outpatient KATERYNA MITCHELL [id number] [place] 00:00:00 00:00:00 Seybol d 2021-11-29 2021-11-29 Outpatient KATERYNA GALLO [id number] [place] 00:00:00 00:00:00 DARIUS Seybol d 2021-11-27 2021-11-27 Outpatient LAB90 KATERYNA MITCHELL [id number] [place] 08:15:00 08:15:00 Seybol d 2021-11-27 2021-11-27 Outpatient KATERYNA GALLO [id number] [place] 00:00:00 00:00:00 DARIUS Seybol d 2021-11-27 2021-11-27 Outpatient KATERYNA MITCHELL [id number] [place] 00:00:00 00:00:00 Seybol d 2021-11-26 2021-11-26 Office [place], [place] 1.2.840.114 [id number] Kateryna 10:45:00 11:15:00 Visit Darius Sparks 350.1.13.13 Se ediedayanna Sebastián 1.2.7.2.686 [id number] 2021-11-23 2021-11-23 Outpatient KATERYNA FRIEDMAN [id number] [place]ater[place] 00:00:00 00:00:00 YOHAN Hdez ld 2021-11-05 2021-11-05 ambulatory STLMLC STLMLC [id number] Common 00:00:00 00:00:00 [facility] 2021-11-01 2021-11-01 ambulatory STLMLC STLMLC [id number] Common 00:00:00 00:00:00 [facility] 2021-10-29 2021-10-29 ambulatory STLMLC STLMLC [id number] Common 00:00:00 00:00:00 [facility] 2021-10-24 2021-10-24 ambulatory STLMLC STLMLC [id number] Common 00:00:00 00:00:00 [facility] 2021-10-23 2021-10-23 (TEL) STLMLC STLMLC [id number] Co mmon 00:00:00 00:00:00 [facility] 2021-10-16 2021-10-16 ambulatory STLMLC STLMLC [id number] Common 00:00:00 00:00:00 [facility] 2021-04-17 2021-04-17 Emergency E ARTEMIO, MHSW MHSW [address] 12:26:00 20:09:00 MICAH 2021-02-28 2021-02-28 Emergency Elkins, [facility] [id number] 19:00:00 20:05:00 Raul Capps 350.1.13.10 [place] 4.2.7.2.686 [place] [id number] 2021-02-28 2021-02-28 Emergency X [facility] ERT [id number] Univers 18:54:00 18:54:00 ity [facility] 2020-11-12 2020-11-12 Emergency X JUSTIN, [facility] ERT [id number] Univers 10:27:00 13:27:00 JERROD ity [facility] 2020-11-12 2020-11-12 Emergency X JUSTIN, [facility] ERT [id number] Univers 10:27:00 10:27:00 JERROD [facility] 2020-10-10 2020-10-10 Emergency E AUSTIN, MHBL MHBL 7500 MHBL 13:09:00 19:20:00 LATHA 2020-06-28 2020-06-28 Emergency Aliya, [facility] [id number] 14:56:00 17:04:00 Rafia Capps 350.1.13.10 [place] 4.2.7.2.686 [place] [id number] 2020-06-28 2020-06-28 Emergency X ALIYA, [facility] ERT [id number] Univers 14:56:00 14:56:00 RAFIA [facility] 2020-06-28 2020-06-28 Orders Doctor POE 1.2.840.114 [id number] 00:00:00 00:00:00 Only Unassigned, DESTINY 350.1.13.10 [place] [facility] 4.2.7.2.686 [id number] 2020-03-20 2020-03-20 Emergency Aron [facility] 1.2.840.114 [id number] 18:31:57 20:18:00 Errol Capps 350.1.13.10 [place] 4.2.7.2.686 [place] [id number] 2020-03-20 2020-03-20 Emergency X ARON [facility] ERT [id number] Univers 18:31:57 18:31:57 ERROL oviedo [facility] Results Test Description Test Time Test Comments Results Result [facility] e Comments - XR FLUOROSCOPY 2019-01-14 Name: RACHAEL OQUENDO 0-60 MIN 10:27:00 DAVID Sharp : 1960 Age/S: 58 / M [id number] Unit #: [id number] Loc: [place] [address] Phys: Kevin Rollins MD Acct: [id number] Dis Date: Status: REG KYProtonet PHONE #: [phone] Exam Date: 01/14/2019 0910 FAX #: Reason: PORT A CATH PLACEMENT EXAMS: CPT: [id number] XR FLUOROSCOPY 0-60 MIN 34576 Fluoro Time: 8 SEC DAP (Gy m2): [...] OQUENDO : 1960 Age/S: 58 / M [id number] Unit #: [id number] Loc: [place] [address] Phys: Kevin Rollins MD Acct: [id number] Dis Date: Status: REG [facility] PHONE #: [phone] Exam Date: 01/14/2019 0910 FAX #: Reason: PORT A CATH PLACEMENT EXAMS: CPT: [id number] XR FLUOROSCOPY 0-60 MIN 49624 Fluoro Time: 8 SEC DAP (Gy m2): Air Kerma (mGy): (Continued) Technologist: Sandy Lucero, RT(R)(CT); Mary Carbajal, RT(R) Trnscb Date/Time: 01/14/2019 (2935) [id number] Orig Print D/T: S: 01/14/2019 (3073) PAGE 2 Signed Report GLUCOSE BEDSIDE TESTING 2019-01-14 10:17:00 Test Item Value Reference Range Interpretation Comme nts GLUCOSE BEDSIDE TESTING (test code = GLUBED) 140 mg/dL 70-110 H - XR CHEST 1 [id number] 10:04:00 Name: RACHAEL OQUENDO : 1960 Age/S: 58 / M [id number] Unit #: [id number] Loc: [place] [address] Phys: Kevin Rollins MD Acct: [id number] Dis Date: Status: REG [facility] PHONE #: [phone] Exam Date: 01/14/2019 0955 FAX #: Reason: port placement EXAMS: CPT: [id number] XR CHEST 1 V 00392 Fluoro Time: DAP (Gy m2): Air Kerma [...] PAGE 1 Signed Report Name: RACHAEL OQUENDO [place] : 1960 Age/S: 58 / M [id number] Unit #: [id number] Loc: [place] [address] Phys: Kevin Rollins MD Acct: [id number] Dis Date: Status: REG [facility] PHONE #: [phone] Exam Date: 01/14/2019 0916 FAX #: Reason: port placement EXAMS: CPT: [id number] XR CHEST 1 V 08036 Fluoro Time: DAP (Gy m2): Air Kerma (mGy): (Continued) Technologist: Rachael Izquierdo, RT(R)(CT); Mary Carbajal, RT(R) Trnscb Date/Time: 01/14/2019 (1004) [id number] Orig Print D/T: S: 01/14/2019 (1007) PAGE 2 Signed ReportGLUCOSE BEDSIDE [id number] 07:20:00 Test Item Value Reference Range Interpretation Comments GLUCOSE BEDSIDE TESTING (test code 137 mg/dL 70-110 H = GLUBED) [id number] 16:52:00 RUN DATE: 01/06/19 [facility] - LAB *LIVE* PAGE 1 RUN TIME: 1652 Specimen Inquiry RUN USER: INTERFACE PATIENT: RACHAEL OQUENDO LOC: [place] U #: [id number] AGE/SX: 58/M ROOM: [facility] RE12/31/18REG DR: Kevin Rollins MD : 64 BED: 1 DIS: 01/02/19 STATUS: DIS IN TLOC: SPEC #: [id number] RECD: 01/01/19 STATUS: CORNELNalini RE #: [id number] ONELIA: 12/31/[address] [facility] [address]: Kevin Rollins MD ENTERED: 01/01/19 SP TYPE: SURG OTHR DR: Shamar Abreu ORDERED: SURG PATH LVL 6 COPIES TO: Shamar Abreu [address] [place] [address] [address] [place], [place] [id number] [place] [address] [place] [address] HISTOLOGY: TISSUE ID BLK PCS CESAR LEV PROCEDURE DISPOSITION ____ ___ ___ ___ SIGMOID COLON A 1-15 1 PROCEDURES: SURG PATH LVL 6 (01/01/19) TISSUES: A. SIGMOID COLON - SIGMOID COLON AND ANASTOMATIC COLON RINGS CLINICAL HISTORY COLON RECTAL CANCER -C18.9 CPT CODES CPT CODE(S): 08640 , , , , , , FINAL DIAGNOSIS Colon, sigmoid, anastomotic donuts, partial colectomy: MODERATELY DIFFERENTIATED COLORECTAL ADENOCARCINOMA, 6 CM GREATEST DIMENSION 7 LYMPH NODES POSITIVE FOR METASTATIC CARCINOMA (7/10) MARGINS NEG ATIVE CONTINUED ON NEXT PAGE RUN DATE: 01/06/19 [facility] - LAB *LIVE* PAGE 2 RUN TIME: 1652 Specimen Inquiry RUN USER: INTERFACE SPEC #: [id number] PATIENT: RACHAEL OQUENDO #[id number] (Continued)--- --------- GROSS DESCRIPTION Sigmoid colon and [...] Entire circumference of dis rosi margin A4-A5 [employer] sections of the lesion A6 Tumor with normal mucosa of proximal margin A7 Tumor with normal mucosa of closest distal margin A8 Normal mucosa A9 [employer] sections oflargest anastomotic ring A10 [employer] sections of second anastomotic ring A11 [employer] sections of mesentery A12-A14 [employer] sections of mesentery with possible matted lymph nodes A15-A20 Entire lymph nodes, one lymph node each A21 Two lymph nodes A22 Two lymph nodes, serially sectioned A23 Three lymph nodes Grossing performed at [facility], [address], [address], [place], [place] [address]. [employer] Interpreter: Hany Haji M.D. MICROSCOPIC DESCRIPTION Sigmoid colon and anastomotic colon rings. Sections demonstrate colonic mucosa. A mass with infiltrating neoplasticglands identified. The glands penetrate through the muscularis to involve the serosa. Lymphovascularinvasion is identified. Sections of mesentery demonstrate tumor involving soft tissue. Lymph nodes are identified. Metastatic carcinoma is present in 7 lymph nodes. A total of 10 lymph nodes are identified.The carcinoma CONTINUED ON NEXT PAGE RUN DATE: 01/06/19 [facility] - LAB *LIVE* PAGE 3 RUN TIME: 1652 Specimen Inquiry RUN USER: INTERFACE SPEC #: [facility]:[id number] PATIENT: RACHAEL OQUENDO #[id number] (C ontinued) MICROSCOPIC DESCRIPTION (Continued) demonstrates moderately [...] 01/06/19 1652 END OF REPORT GLUCOSE BEDSIDE [id number] 17:20:00 Test Item Value Reference Range Interpretation Comments GLUCOSE BEDSIDE TESTING (test code 103 mg/dL 70-110 N = GLUBED) GLUCOSE BEDSIDE [id number] 11:28:00 Test Item Value Reference Range Interpretation Comments GLUCOSE BEDSIDE TESTING (test code = 87 mg/dL 70-110 N GLUBED) GLUCOSE BEDSIDE [id number] 07:23:00 Test Item Value Reference Range Interpretation Comments GLUCOSE BEDSIDE TESTING (test code 108 mg/dL 70-110 N = GLUBED) GLUCOSE BEDSIDE [id number] 20:29:00 Test Item Value Reference Range Interpretation Comments GLUCOSE BEDSIDE TESTING (test code = 99 mg/dL 70-110 N GLUBED) GLUCOSE BEDSIDE [id number] 16:28:00 Test Item Value Reference Range Interpretation Comments GLUCOSE BEDSIDE TESTING (test code = 84 mg/dL 70-110 N GLUBED) GLUCOSE BEDSIDE [id number] 11:30:00 Test Item Value Reference Range Interpretation Comments GLUCOSE BEDSIDE TESTING (test code 106 mg/dL 70-110 N = GLUBED) GLUCOSE BEDSIDE [id number] 07:38:00 Test Item Value Reference Range Interpretation Comments GLUCOSE BEDSIDE TESTING (test code 120 mg/dL 70-110 H = GLUBED) CBC W/AUTO [id number] 06:24:00 Test Item Value Reference Range Interpretation [...] = NO DIFF/SCN CRITERIA MDIFF) GLUCOSE BEDSIDE [id number] 21:45:00 Test Item Value Reference Range Interpretation Comments GLUCOSE BEDSIDE TESTING (test code 135 mg/dL 70-110 H = GLUBED) BASIC METABOLIC [id number] 18:20:00 Test Item Value Reference Range Interpretation [...] code = CA) 8.1 MG/DL 8.5-10.1 L [id number] 18:20:00 Test Item Value Reference Range Interpretation Comments PHOSPHOROUS (test code = PHOS) 3.2 MG/DL 2.5-4.9 N [id number] 18:20:00 Test Item Value Reference Range Interpretation Comments MAGNESIUM (test code = MAG) 1.7 MG/DL 1.8-2.4 L GLUCOSE BEDSIDE [id number] 16:54:00 Test Item Value Reference Range Interpretation Comments GLUCOSE BEDSIDE TESTING (test code 160 mg/dL 70-110 H = GLUBED) GLUCOSE BEDSIDE [id number] 14:29:00 Test Item Value Reference Range Interpretation Comments GLUCOSE BEDSIDE TESTING (test code 136 mg/dL 70-110 H = GLUBED) GLUCOSE BEDSIDE [id number] 07:31:00 Test Item Value Reference Range Interpretation Comments GLUCOSE BEDSIDE TESTING (test code 125 mg/dL 70-110 H = GLUBED)
[2023-09-25] MEDS ORDERED: HYDROMORPHONE HCL 1 MG/ML INJ ONE (15:22)
[2023-09-25] MEDS ORDERED: ONDANSETRON 4 MG (ODT) TAB ONE (15:22)
--- NOTE | 2023-09-25 15:24 | ER ---
Nurse's Notes [facility] Name: Taiwo Chery Age: 63 yrs Sex: Male : 1960 Arrival Date: 09/25/2023 Time: 14:41 Bed 10 Private MD: Diagnosis: Low back pain Presentation: 09/25 14:48 Chief complaint: Spouse and/or significant other states: Chronic low back pain that has ph been worse for the past few days, see pain management, takes hydrocodone and gabapentin w/ no relief, dx w/ spinal stenosis, SO states," Pain management told us to come here.". Coronavirus screen: Vaccine status: Patient reports receiving the 2nd dose of the covid vaccine. Ebola Screen: No symptoms or risks identified at this time. Initial Sepsis Screen: Does the patient meet any 2 criteria? No. Patient's initial sepsis screen is negative. Does the patient have a suspected source of infection? No. Patient's initial sepsis screen is negative. Risk Assessment: Do you want to hurt yourself or someone else? Patient reports no desire to harm self or others. Onset of symptoms was September 25, 2023. 14:48 Method Of Arrival: Wheelchair 14:48 Acuity: LEONARD 4 ph Triage Assessment: 15:30 General: Appears in no apparent distress. comfortable, Behavior is calm, cooperative, ld1 appropriate for age. Pain: Complains of pain in back Pain does not radiate. Pain currently is 8 out of 10 on a pain scale. Quality of pain is described as throbbing. EENT: No signs and/or symptoms were reported regarding the EENT system. Neuro: Level of Consciousness is awake, alert, obeys commands, Oriented to person, place, time, situation. Cardiovascular: Capillary refill < 3 seconds Patient's skin is warm and dry. Respiratory: Airway is patent Respiratory effort is even, unlabored. GI: Abdomen is round non-distended. : No signs and/or symptoms were reported regarding the genitourinary system. Derm: No signs and/or symptoms reported regarding the dermatologic system. Musculoskeletal: No signs and/or symptoms reported regarding the musculoskeletal system. Historical: - Allergies: 14:50 No Known Drug Allergies; ph - PMHx: 14:50 diabetes mellitus; Hypertensive disorder; Chronic back pain; colon cancer-in remission; ph - Immunization history:: Adult Immunizations up to date. - Social history:: Smoking status: Patient denies any tobacco usage or history of. Screenin:29 [facility] ED Fall Risk Assessment (Adult) Score/Fall Risk Level 0 - 2 = Low Risk ll1 Oriented to surroundings, Maintained a safe environment, Educated pt \\T\\ family on fall prevention, incl call for assistance when getting out of bed, Hourly rounding (assess needs \\T\\ fall precautionary measures) done. Abuse screen: Denies threats or abuse. Nutritional screening: No deficits noted. Tuberculosis screening: No symptoms or risk factors identified. Assessment: 15:16 Reassessment: No changes from previously documented assessment. Patient and/or family ll1 updated on plan of care and expected duration. Pain level reassessed. Patient is alert, oriented x 3, equal unlabored respirations, skin warm/dry/pink. 15:29 Reassessment: No changes from previously documented assessment. Patient and/or family ll1 updated on plan of care and expected duration. Pain level reassessed. Patient is alert, oriented x 3, equal unlabored respirations, skin warm/dry/pink. Vital Signs: 14:48 BP 118 / 79; Pulse 57; Resp 18; Temp 98.1; Pulse Ox 99% on R/A; Weight 104.33 kg; ph Height 5 ft. 4 in. ; 15:29 BP 119 / 73; Pulse 57; Resp 18; Pain 10/10; ll1 14:48 Body Mass Index 39.48 (104.33 kg, 162.56 cm) ph 15:29 Pain Scale: Adult ll1 ED Course: 14:43 Patient arrived in ED. im 14:44 Gaby Miranda FNP is PHCP. jh7 14:44 Jace Alejandra MD is Attending Physician. jh7 14:50 Triage completed. ph 14:51 Arm band placed on Patient placed in an exam room, on a stretcher. ph 15:30 Patient has correct armband on for positive identification. Bed in low position. Call ll1 light in reach. Client placed on continuous cardiac and pulse oximetry monitoring. NIBP monitoring applied. 15:31 Provided Education on: low back pain. ld1 15:31 No provider procedures requiring assistance completed. Patient did not have IV access ld1 during this emergency room visit. 15:51 Daniela Combs, RN is Primary Nurse. ld1 Administered Medications: 15:14 Drug: HYDROmorphone IM 1 mg IM once Route: IM; Site: right gluteus; ll1 15:14 Drug: Ondansetron Oral Disintegrating Tablet Oral Disintegrating Tablet 4 mg PO once 1 Route: PO; Medication: 15:30 VIS not applicable for this client. 1 Outcome: 15:23 Discharge ordered by MD. wilson 15:51 Discharged to home ambulatory, with family, 1 15:51 Condition: stable 15:51 Discharge instructions given to patient, family, Instructed on discharge instructions, follow up and referral plans. Demonstrated understanding of instructions, follow-up care, 15:52 Patient left the ED. ld1 Signatures: Ellie Lehman RN LELE Eleanor Pro RN RN 1 Daniela Combs, LELE RN ld1 Gaby Miranda, RADIO DISC JOCKEY RADIO DISC JOCKEY [facility] Jenna Richmond im
--- NOTE | 2023-09-25 15:24 | EDPHYS ---
Physician Documentation [facility] Name: Taiwo Chery Age: 63 yrs Sex: Male : 1960 Arrival Date: 09/25/2023 Time: 14:41 Bed 10 Private MD: ED Physician Jace Alejandra HPI: 09/25 14:50 This 63 yrs old Male presents to ER via Wheelchair with complaints of Low Back jh7 Pain. 14:50 The patient presents with pain that is chronic, with no known mechanism of injury. jh7 Patient presents to the ER for chronic lower back pain. The patient's states that they have an appointment with pain management tomorrow but that the patient has been in severe pain for the past 2 days. Reports that he is on gabapentin and [place] 10/325 with no relief. He reports a history of spinal stenosis and states that he has seen multiple spine surgeons and orthopedists over the years. Also reports history of multiple CT scans and MRIs only showing spinal stenosis. The patient states he would like something for pain until he can get into his appointment tomorrow.. Historical: - Allergies: 14:50 No Known Drug Allergies; ph - PMHx: 14:50 diabetes mellitus; Hypertensive disorder; Chronic back pain; colon cancer-in remission; ph - Immunization history:: Adult Immunizations up to date. - Social history:: Smoking status: Patient denies any tobacco usage or history of. ROS: 14:50 Constitutional: Negative for fever, chills, and weight loss, Eyes: Negative for injury, jh7 pain, redness, and discharge, Neck: Negative for injury, pain, and swelling, Cardiovascular: Negative for chest pain, palpitations, and edema, Respiratory: Negative for shortness of breath, cough, wheezing, and pleuritic chest pain, Abdomen/GI: Negative for abdominal pain, nausea, vomiting, diarrhea, and constipation, MS/Extremity: Negative for injury and deformity, Skin: Negative for injury, rash, and discoloration, Neuro: Negative for headache, weakness, numbness, tingling, and seizure, 14:50 Back: Positive for pain at rest, pain with movement, 14:50 All other systems are negative, Exam: 14:50 Constitutional: This is a well developed, well nourished patient who is awake, alert, jh7 and in no acute distress. Head/Face: Normocephalic, atraumatic. Neck: Trachea midline, no thyromegaly or masses palpated, and no cervical lymphadenopathy. Supple, full range of motion without nuchal rigidity, or vertebral point tenderness. No Meningismus. Cardiovascular: Regular rate and rhythm with a normal S1 and S2. No gallops, murmurs, or rubs. Normal PMI, no JVD. No pulse deficits. Respiratory: Lungs have equal breath sounds bilaterally, clear to auscultation and percussion. No rales, rhonchi or wheezes noted. No increased work of breathing, no retractions or nasal flaring. Abdomen/GI: Soft, non-tender, with normal bowel sounds. No distension or tympany. No guarding or rebound. No evidence of tenderness throughout. Skin: Warm, dry with normal turgor. Normal color with no rashes, no lesions, and no evidence of cellulitis. MS/ Extremity: Pulses equal, no cyanosis. Neurovascular intact. Full, normal range of motion. Neuro: Awake and alert, GCS 15, oriented to person, place, time, and situation. Antalgic gait. 14:50 Back: pain, that is severe, of the lumbar area, left low back and right low back, ROM is painful, with all movement, Vital Signs: 14:48 BP 118 / 79; Pulse 57; Resp 18; Temp 98.1; Pulse Ox 99% on R/A; Weight 104.33 kg; ph Height 5 ft. 4 in. ; 15:29 BP 119 / 73; Pulse 57; Resp 18; Pain 10/10; ll1 14:48 Body Mass Index 39.48 (104.33 kg, 162.56 cm) ph 15:29 Pain Scale: Adult ll1 MDM: 14:44 Patient medically screened. [facility] 15:20 Differential diagnosis: Herniated disc spinal stenosis, chronic back pain. Data [facility] reviewed: vital signs, nurses notes. I considered the following discharge prescriptions or medication management in the emergency department Medications were administered in the Emergency Department. See MAR. Historians other than the Patient: Spouse/Significant Other: . Counseling: I had a detailed discussion with the patient and/or guardian regarding the historical points, exam findings, and any diagnostic results supporting the discharge/admit diagnosis, the need for outpatient follow up, a automotive painter helper, to return to the emergency department if symptoms worsen or persist or if there are any questions or concerns that arise at home. Response to treatment: the patient's symptoms have mildly improved after treatment. Administered Medications: 15:14 Drug: HYDROmorphone IM 1 mg IM once Route: IM; Site: right gluteus; ll1 15:14 Drug: Ondansetron Oral Disintegrating Tablet Oral Disintegrating Tablet 4 mg PO once ll1 Route: PO; Disposition: 21:25 Co-signature as Attending Physician, Jace Alejandra MD I reviewed the patient's care rt provided by the Advanced Practice Provider and agree with the diagnosis and treatment plan. Disposition Summary: 09/25/23 15:23 Discharge Ordered Notes: Location: Home [facility] Problem: chronic [facility] Symptoms: are unchanged [facility] Condition: Stable [facility] Diagnosis - Low back pain [facility] Followup: [facility] - With: Private Physician - When: 2 - 3 days - Reason: Recheck today's complaints Discharge Instructions: - Discharge Summary Sheet [facility] - Chronic Back Pain [facility] Forms: - Medication Reconciliation Form [facility] - Thank You Letter [facility] - Patient Portal Instructions [facility] - Leadership Thank You Letter [facility] Signatures: Ellie Lehman RN RN Eleanor Pro RN RN 1 Daniela Combs RN RN ld1 Gaby Miranda FNP BLOOD DONOR UNIT ASSISTANT [facility] Jace Alejandra MD MD rt
[2023-09-25 15:56] VITALS: TEMP 98.1; O2SAT 99
[2023-09-25 15:57] VITALS: BP 119/73
== END 2023-09-25 15:52 | disposition home or self-care (01) ==
LOC: ER 14:41
DX: M54.50 Low back pain, unspecified (principal); Z85.038 Personal history of other malignant neoplasm of large intestine
CPT/HCPCS: 96372; 99284; Q0162; J1170

== ENCOUNTER → 2024-01-24 | Emergency (ER) | payer OTHER ==
[~2024-01-24] MED LIST: CYCLOBENZAPRINE 10 MG TAB ONE; KETOROLAC 30 MG/ML INJ ONE
--- OUTSIDE RECORDS SUMMARY | 2024-01-24 20:06 | XMS REPORT | Continuity of Care Document ---
Author Name Unknown Address [address] [facility] [address] [place] [address] [facility] Address [address] [facility] [address] [place] [address] Care Team Providers Care Patient Financial Services Coordinator Name Role Phone DIANA ANABELA Primary Care Physician Unavailab Darius Paul Attending Clinician Unavailable Brittanie Wing Attending Clinician Unavailable GEORGINA FOSTER Attending Clinician Unavailable ASUNCION BROWN Attending Clinician Unava ilable LAB90 Attending Clinician Unavailable DARIUSZ SANTANA Attending Clinician Unavailable CELESTE PADRON Attending Clinician Unavailable LINH JEFFERS Attending Clinician Unavailable 39, HOLTER Attending Clinician Unavailable CITLALLI DOUGHERTY Attending Clinician Unavailable DARIUS GALLO Attending Clinician UnaHERON Hinojosa Attending Clinician Unavailable GUS NERI Attending Clinician Unavailable ARABELLA JUNE Attending Clinician Unavailable ABHAY ASTORGA Attending Clinician Unavailab le LAB45 Attending Clinician Unavailable MD ELISE Attending Clinician Unavailab ENRICO Vasques Attending Clinician UnavailNEO Wilcox Attending Clinician Unavailable DARREL CHOI Attending Clinician Unavaila ble PL, TECH 1 Attending Clinician Unavailable CHRISTIANO MENDOZA Attending Clinician Unavailable LATHA ROCK Attending Clinician Unavailab YOHAN Dang Attending Clinician Unavailab Raul Dickerson DO Attending Clinician [phone] JERROD ANDERSON Attending Clinician Unavailable Rafia Medina Attending Clinician [phone] RAFIA PISANO Attending Clinician Unavailable Doctor Unassigned, [place] Attending Clinician U Errol Eldridge Attending Clinician [phone] ERROL SHARP Attending Clinician Unavailable JERROD ANDERSON Admitting Clinician Unavailable Payers Payer Name Policy Type Policy Number Effective Date Expirati on Date Source RAMSES MENDEZ DUAL COMPLETE CAP(HMO D-SNP OA) 7 [id number] 2023 00:00:00 [place]O [place] GOLD PLUS 33 D-SNP OA 7 [id number] 2022 00:00:00 HUMANA MEDICARE 53 [id number] 2022 00:00:00 [facility] HUMANA MA 5 [id number] 2022 00:00:00 [employer] GOLD FREED[employer] HMO-POS 16 [id number] 2021 00:00:00 [facility] [id number] 2019 00:00:00 Problems Condition Name Condition Details Condition Category Status Onset Date Resolution Date Last Treatment Date Treating Clinician Comments Source Pre-op evaluation Pre-op evaluation Disease Active 206 00:00: 00 Kateryna munroe DM type 2 with diabetic mixed hyperlipid emia (multi HCC) DM type 2 with diabetic mixed hyperlipid emia (multi HCC) Disease Active 02-25 00:00: 00 Kateryna Gauthier - Joselyna ludwig Anxiety Anxiety Disease Active 02-25 00:00: 00 Kateryna Gauthier - Externa ludwig Primary insomnia Primary insomnia Disease Active 02-25 00:00: 00 Kateryna Jasso Externa ludwig Gastroesop hageal reflux disease without esophagiti s Gastroesop hageal reflux disease without esophagiti s Disease Active 02-25 00:00: 00 Kateryna Gauthier - Externa ludwig Diabetic polyneurop athy associated with type 2 diabetes mellitus (multi HCC) Diabetic polyneurop athy associated with type 2 diabetes mellitus (multi HCC) Disease Active 02-25 00:00: 00 Kateryna munroe Acute pain of right knee Acute pain of right knee Disease Active 02-25 00:00: 00 Kateryna munroe History of colectomy History of colectomy Disease Active 11-27 00:00: 00 Kateryna munroe 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 [...] pain managemen t vs seek second opinion Kateryna Seybold - Externa l Class 2 severe obesity due to excess calories with serious comorbidit y and body mass index (BMI) of 38.0 to 38.9 in adult Class 2 severe obesity due to excess calories with serious comorbidit y and body mass index (BMI) of 38.0 to 38.9 in adult Disease Active 11-26 00:00: 00 Kateryna munroe Major depressive disorder, single episode, mild Major depressive disorder, single episode, mild Disease Active 11-26 00:00: 00 Kateryna munroe Type 2 diabetes mellitus with hyperglyce kurtis (multi HCC) Type 2 diabetes mellitus with hyperglyce kurtis (multi HCC) Disease Active 11-26 00:00: 00 Kateryna munroe HTN (hypertens ion) HTN (hypertens ion) Disease Active Kateryna munroe Depression Depression Disease Active Vincent Gauthier DM (diabetes mellitus), type 2 DM (diabetes mellitus), type 2 Disease Active Kateryna Gauthier [id number] Other chronic pain Problem [facility] Incomplete emptying of bladder Incomplete emptying of bladder Problem [facility] Disorder of kidney and/or ureter Renal mass, right Problem [facility] [id number] Primary osteoarthr itis of right knee Problem [facility] [id number] Primary osteoarthr itis of left knee Problem [facility] [id number] BPH loc w urin obs/LUTS Problem [facility] [id number] Right-side d low back pain without sciatica, unspecifie d chronicity Problem [facility] Spasm Jerking movements of extremitie s Problem [facility] [id number] CPAP (continuou s positive airway pressure) dependence Problem [facility] [id number] 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 Problem [facility] [id number] Other obstructiv e and reflux uropathy Problem [facility] [id number] Urethritis [facility] [id number] Other stricture of urethral meatus in male Problem [facility] [id number] Body mass index (BMI) 40.0-44.9, adult Problem [facility] Hyperlipid emia Hyperlipid emia Problem [facility] [id number] Depression with anxiety Problem [facility] [id number] Morbid obesity Problem [facility] [id number] Essential hypertensi on Problem [facility] Skin sensation disturbanc e Numbness in both hands Problem [facility] [id number] Uncontroll ed type 2 diabetes mellitus with hyperglyce kurtis Problem [facility] Balanitis xerotica obliterans Balanitis xerotica obliterans Problem [facility] Phimosis Phimosis Problem [facility] [id number] Lower urinary tract symptoms (LUTS) Problem [facility] Acute cystitis Acute cystitis with hematuria Problem [facility] [id number] Hx of colon cancer, stage III Problem [facility] Cancer Cancer Problem [facility] Dizziness Dizziness Problem [facility] [id number] Leg heaviness Problem [facility] Headache Frequent headaches Problem [facility] [id number] Obstructiv e sleep apnea Problem [facility] Gross hematuria Gross hematuria Problem [facility] Congenital cystic kidney disease Kidney cyst Problem [facility] Arthritis of both knees Arthritis of both knees Problem [facility] Allergies, Adverse Reactions, Alerts Allergy Name Allergy Type Status Severity Reaction(s) Onset Date Inactive Date Treating Clinician Comments Source No Known Allergie s DA Active U - 00:00: 00 [facility] [place] NO KNOWN ALLERGIE S Drug Class Active [facility] Social History Social Habit Start Date Stop Date Quantity Comments Source Gender identity Keisha Gauthier - External Sexual orientation K jadiel Gauthier - External Exposure to SARS-CoV-2 (event) Not sure Kateryna duron History of Tobacco Use [facility] Sex Assigned At [facility] History of Social function 2023-07-24 00:00:00 2023-07-24 00:00:00 Kateryna Horn Smoking Status Start Date Stop Date Source Former Smoker 2024-01-06 00:00:00 2024-01-06 00:00:00 [facility] Never smoked tobacco Kateryna Horn Medications Ordered Medication Name Filled Medication Name Start Date Stop Date Current Medication? Ordering Clinician Indication Dosage Frequency Signature (SIG) Comments Components Source oxyCODONE-A cetaminophe n 7.5-325 MG oral Tablet 01-20 10:21: 35 Yes 1{tbl} Q.5D Take 1 tablet by mouth 2 times daily as needed for pain. Kateryna munroe HYDROcodone -Acetaminop hen 10-325 MG oral Tablet 01-20 10:20: 58 01-20 00:00 :00 No [id number] 1{tbl} QD Take 1 tablet by mouth daily as needed for pain. Kateryna munroe Aspirin 81 MG oral Tablet Delayed Response 01-20 09:56: 07 Yes 81mg Take 1 tablet (81 mg total) by mouth. Kateryna munroe Tizanidine HCl 4 MG oral Tablet 01-20 09:56: 07 Yes 4mg Take 1 tablet (4 mg total) by mouth at bedtime. Kateryna munroe Aripiprazol e 15 MG oral Tablet 01-20 09:56: 07 Yes 15mg Take 1 tablet (15 mg total) by mouth daily. Kateryna munroe Ramelteon (Rozerem) 8 MG oral Tablet 01-20 09:56: 07 Yes 8mg Take 1 tablet (8 mg total) by mouth nightly. Kateryna munroe Metformin HCl 1000 MG oral Tablet 01-15 00:00: 00 Yes [id number] 3 1000mg Take 1 tablet (1,000 mg total) by mouth in the morning and 1 tablet (1,000 mg total) in the evening. Take with meals. Kateryna munroe Atorvastati n Calcium 40 MG oral Tablet 12-18 00:00: 00 Yes [id number] 40mg Take 1 tablet (40 mg total) by mouth daily. Kateryna munroe Blood Glucose Monitoring Suppl (True Metrix Air Glucose Meter) w/Device does not apply Kit 2022-11 00:00: 00 Yes USE DIRECTED. Kateryna munroe Alcohol Swabs (DropSafe Alcohol Prep) 70 % does not apply Pads 2022-11 00:00: 00 Yes 1{appli cation} QD Inject 1 Applicatio n into the skin daily as needed. Kateryna munroe Glucose Blood (True Metrix Blood Glucose Test) in vitro Strip 2022-11 00:00: 00 Yes [id number] Check BS twice daily. Kateryna munroe Empaglifloz in (Jardiance) 10 MG oral Tablet 2022-11 00:00: 00 Yes [id number] 10mg Take 1 tablet (10 mg total) by mouth daily. Kateryna munroe TRUEplus Lancets 33G does not apply Misc 2022-11 00:00: 00 Yes Use as directed. Kateryna munroe TRUEplus Lancets 33G does not apply Misc 2022-11 00:00: 00 Yes Use as directed. Kateryna munroe Quetiapine Fumarate 50 MG oral Tablet 2022-11 00:00: 00 Yes 50mg Take 1 tablet (50 mg total) by mouth nightly. Kateryna munroe Quetiapine Fumarate 50 MG oral Tablet 2022-11 00:00: 00 Yes 50mg Take 1 tablet (50 mg total) by mouth nightly. Kateryna munroe Blood Glucose Monitoring Suppl (True Metrix Air Glucose Meter) w/Device does not apply Kit 2022-11 00:00: 00 Yes USE DIRECTED Kateryna munroe Enalapril Maleate 10 MG oral Tablet 2022-11 00:00: 00 Yes [id number] 10mg Take 1 tablet (10 mg total) by mouth daily. Kateryna munroe Enalapril Maleate 10 MG oral Tablet 2022-11 0 00:00: 00 Yes [id number] 10mg Take 1 tablet (10 mg total) by mouth daily. Kateryna munroe Aspirin 81 MG oral Tablet Delayed Response 08-01 13:09: 52 Yes 81mg Take 1 tablet (81 mg total) by mouth. Kateryna munroe Tizanidine HCl 4 MG oral Tablet 08-01 13:09: 52 Yes 4mg Take 1 tablet (4 mg total) by mouth at bedtime. Kateryna munroe HYDROcodone -Acetaminop hen 10-325 MG oral Tablet 08-01 13:09: 52 Yes [id number] 1{tbl} QD Take 1 tablet by mouth daily as needed for pain. Kateryna munroe Aripiprazol e 15 MG oral Tablet 08-01 13:09: 52 Yes 15mg Take 1 tablet (15 mg total) by mouth daily. Kateryna munroe Ramelteon (Rozerem) 8 MG oral Tablet 08-01 13:09: 52 Yes 8mg Take 1 tablet (8 mg total) by mouth nightly. Kateryna munroe Aspirin 81 MG oral Tablet Delayed Response 08-01 13:09: 52 Yes 81mg Take 1 tablet (81 mg total) by mouth. Kateryna munroe Tizanidine HCl 4 MG oral Tablet 08-01 13:09: 52 Yes 4mg Take 1 tablet (4 mg total) by mouth at bedtime. Kateryna munroe HYDROcodone -Acetaminop hen 10-325 MG oral Tablet 08-01 13:09: 52 Yes [id number] 1{tbl} QD Take 1 tablet by mouth daily as needed for pain. Kateryna munroe Aripiprazol e 15 MG oral Tablet 08-01 13:09: 52 Yes 15mg Take 1 tablet (15 mg total) by mouth daily. Kateryna munroe Ramelteon (Rozerem) 8 MG oral Tablet 08-01 13:09: 52 Yes 8mg Take 1 tablet (8 mg total) by mouth nightly. Kateryna munroe Aspirin 81 MG oral Tablet Delayed Response 08-01 13:09: 52 Yes 81mg Take 1 tablet (81 mg total) by mouth. Kateryna munroe Tizanidine HCl 4 MG oral Tablet 08-01 13:09: 52 Yes 4mg Take 1 tablet (4 mg total) by mouth at bedtime. Kateryna munroe HYDROcodone -Acetaminop hen 10-325 MG oral Tablet 08-01 13:09: 52 Yes [id number] 1{tbl} QD Take 1 tablet by mouth daily as needed for pain. Kateryna munroe Aripiprazol e 15 MG oral Tablet 08-01 13:09: 52 Yes 15mg Take 1 tablet (15 mg total) by mouth daily. Kateryna munroe Ramelteon (Rozerem) 8 MG oral Tablet 08-01 13:09: 52 Yes 8mg Take 1 tablet (8 mg total) by mouth nightly. Kateryna munroe cycloSPORIN E (Restasis) 0.05 % ophthalmic Emulsion 08-01 00:00: 00 Yes [id number] 1[drp] Place 1 drop into both eyes 2 times daily. Kateryna munroe cycloSPORIN E (Restasis) 0.05 % ophthalmic Emulsion 08-01 00:00: 00 Yes [id number] 1[drp] Place 1 drop into both eyes 2 times daily. Kateryna munroe cycloSPORIN E (Restasis) 0.05 % ophthalmic Emulsion 08-01 00:00: 00 Yes [id number] 1[drp] Place 1 drop into both eyes 2 times daily. Kateryna munroe cycloSPORIN E (Restasis) 0.05 % ophthalmic Emulsion 08-01 00:00: 00 Yes [id number] 1[drp] Place 1 drop into both eyes 2 times daily. Kateryna Alvesa l Aspirin 81 MG oral Tablet Delayed Response 07-24 08:36: 13 Yes 81mg Take 1 tablet (81 mg total) by mouth. Kateryna Jasso Externa l Tizanidine HCl 4 MG oral Tablet 07-24 08:36: 13 Yes 4mg Take 1 tablet (4 mg total) by mouth at bedtime. Kateryna Jasso Externa ludwig HYDROcodone -Acetaminop hen 10-325 MG oral Tablet 07-24 08:36: 13 Yes [id number] 1{tbl} QD Take 1 tablet by mouth daily as needed for pain. Kateryna Jasso Externa l Aripiprazol e 15 MG oral Tablet 07-24 08:36: 13 Yes 15mg Take 1 tablet (15 mg total) by mouth daily. Kateryna Alvesa ludwig Ramelteon (Rozerem) 8 MG oral Tablet 07-24 08:36: 13 Yes 8mg Take 1 tablet (8 mg total) by mouth nightly. Kateryna Alvesa l TRUEplus Lancets 33G does not apply Misc 07-15 00:00: 00 Yes USE DIRECTED Kateryna Gauthier - Externa l TRUEplus Lancets 33G does not apply Misc 07-15 00:00: 00 Yes USE DIRECTED Kateryna Gauthier - Externa l TRUEplus Lancets 33G does not apply Misc 07-15 00:00: 00 Yes USE DIRECTED Kateryna Alvesa l Aripiprazol e 15 MG oral Tablet 07-01 14:34: 46 Yes 15mg Take 1 tablet (15 mg total) by mouth daily. Kateryna Jasso Externa ludwig Trazodone HCl 100 MG oral Tablet 07-01 14:32: 18 07-01 00:00 :00 No Trazodone Oral once daily active Kateryna Jasso Externa ludwig Metformin HCl 1000 MG oral Tablet 07-01 00:00: 00 Yes [id number] 3 1000mg Take 1 tablet (1,000 mg total) by mouth in the morning and 1 tablet (1,000 mg total) in the evening. Take with meals. Kateryna Jenkinsediedayanna Jasso Joselynjose manuel ludwig Metformin HCl 1000 MG oral Tablet 07-01 00:00: 00 Yes [id number] 3 1000mg Take 1 tablet (1,000 mg total) by mouth in the morning and 1 tablet (1,000 mg total) in the evening. Take with meals. Kateryna Jenkinsediedayanna - Joselyna l Metformin HCl 1000 MG oral Tablet 0 07-01 00:00: 00 Yes [id number] 3 1000mg Take 1 tablet (1,000 mg total) by mouth in the morning and 1 tablet (1,000 mg total) in the evening. Take with meals. Kateryna Jenkinsediedayanna Jasso Joselyna ludwig Metformin HCl 1000 MG oral Tablet 07-01 00:00: 00 Yes [id number] 3 1000mg Take 1 tablet (1,000 mg total) by mouth in the morning and 1 tablet (1,000 mg total) in the evening. Take with meals. Kateryna oliverio Romero Joselyna ludwig Metformin HCl 1000 MG oral Tablet 07-01 00:00: 00 Yes [id number] 3 1000mg Take 1 tablet (1,000 mg total) by mouth in the morning and 1 tablet (1,000 mg total) in the evening. Take with meals. Kateryna Alvesa l Blood Glucose Monitoring Suppl (True Metrix Air Glucose Meter) w/Device does not apply Kit 2022-0 06-02 00:00: 00 Yes USE DIRECTED Kateryna Rojoold - Externa l Blood Glucose Monitoring Suppl (True Metrix Air Glucose Meter) w/Device does not apply Kit 3-0 06-02 00:00: 00 Yes USE DIRECTED Kateryna Rojoold - Externa l Blood Glucose Monitoring Suppl (True Metrix Air Glucose Meter) w/Device does not apply Kit 3-0 06-02 00:00: 00 Yes USE DIRECTED Kateryna Jenkinsybold - Externa l Blood Glucose Monitoring Suppl (True Metrix Air Glucose Meter) w/Device does not apply Kit 3-0 06-02 00:00: 00 Yes USE DIRECTED Kateryna Gauthier - Joselyna l Aspirin 81 MG oral Tablet Delayed Response 2022-0 6-21 15:48: 07 Yes 81mg Take 1 tablet (81 mg total) by mouth Kateryna munroe Tizanidine HCl 4 MG oral Tablet 04-30 15:48: 07 Yes 4mg Take 1 tablet (4 mg total) by mouth at bedtime Kateryna munroe HYDROcodone -Acetaminop hen 10-325 MG oral Tablet 04-30 15:48: 07 Yes [id number] 1{tbl} QD Take 1 tablet by mouth daily as needed for pain Kateryna munroe Eszopiclone 3 MG oral Tablet 04-30 15:48: 07 Yes Eszopiclon e Oral once daily active Kateryna munroe methylPREDN ISolone (Medrol) 4 MG oral Tablet Therapy Pack 04-09 00:00: 00 07-01 00:00 :00 No [id number] Take is instructed on pack Kateryna munroe Ciprofloxac in HCl (Cipro) 500 MG oral Tablet 03-26 00:00: 00 07-01 00:00 :00 No [id number] 500mg Take 1 tablet (500 mg total) by mouth 2 times daily for 7 days Kateryna munroe Naproxen 500 MG Naproxen 500 MG 03-24 00:00: 00 No BID Naproxen 500 MG Naproxen 500 MG Naproxen 500 MG 03-24 00:00: 00 No BID Naproxen 500 MG Naproxen 500 MG Naproxen 500 MG 03-24 00:00: 00 No BID Naproxen 500 MG Naproxen 500 MG Naproxen 500 MG 15 00:00: 00 No BID Naproxen 500 MG Naproxen 500 MG Naproxen 500 MG 15 00:00: 00 No BID Naproxen 500 MG Naproxen 500 MG Naproxen 500 MG 03-24 00:00: 00 No BID Naproxen 500 MG Naproxen 500 MG Naproxen 500 MG 15 00:00: 00 No BID Naproxen 500 MG Naproxen 500 MG Naproxen 500 MG 03-24 00:00: 00 No BID Naproxen 500 MG Naproxen 500 MG Naproxen 500 MG 2022-0 03-24 00:00: 00 No BID Naproxen 500 MG Naproxen 500 MG Naproxen 500 MG 15 00:00: 00 No BID Naproxen 500 MG Naproxen 500 MG Naproxen 500 MG 03-24 00:00: 00 No BID Naproxen 500 MG Aspirin 81 MG oral Tablet Delayed Response 03-07 11:36: 59 Yes 81mg Take 1 tablet (81 mg total) by mouth Kateryna Jasso Externa l Tizanidine HCl 4 MG oral Tablet 03-07 11:36: 59 Yes 4mg Take 1 tablet (4 mg total) by mouth at bedtime Kateryna Gauthier - Externa l HYDROcodone -Acetaminop hen 10-325 MG oral Tablet 03-07 11:36: 59 Yes [id number] 1{tbl} QD Take 1 tablet by mouth daily as needed for pain Kateryna Gauthier - Externa l Trazodone HCl 100 MG oral Tablet 03-07 11:36: 59 Yes Trazodone Oral once daily active Kateryna Gauthier - Externa l Eszopiclone 3 MG oral Tablet 03-07 11:36: 59 Yes Eszopiclon e Oral once daily active Kateryna Gauthier - Externa l Gabapentin 300 MG oral Capsule 03-07 00:00: 00 Yes 1 in AM, 1 at noon, and 2 at night Kateryna Gauthier - Externa l Gabapentin 300 MG oral Capsule 03-07 00:00: 00 Yes 1 in AM, 1 at noon, and 2 at night Ktaeryna Rojoold - Externa l Gabapentin 300 MG oral Capsule 03-07 00:00: 00 Yes 1 in AM, 1 at noon, and 2 at night Kateryna Seybold - Externa l Gabapentin 300 MG oral Capsule 03-07 00:00: 00 Yes 1 in AM, 1 at noon, and 2 at night Kateryna Gauthier - Externa l Gabapentin 300 MG oral Capsule 03-07 00:00: 00 Yes 1 in AM, 1 at noon, and 2 at night Kateryna Alvesa l Gabapentin 300 MG oral Capsule 03-07 00:00: 00 Yes 1 in AM, 1 at noon, and 2 at night Kateryna Gauthier - Externa l Gabapentin 300 MG oral Capsule 03-07 00:00: 00 01-20 00:00 :00 No 1 in AM, 1 at noon, and 2 at night Kateryna Gauthier - Externa l Enalapril Maleate 10 MG oral Tablet 03-04 00:00: 00 Yes [id number] TAKE 1 TABLET EVERY DAY Kateryna Gauthier - Externa l Blood Glucose Monitoring Suppl (True Metrix Air Glucose Meter) w/Device does not apply Kit 03-04 00:00: 00 Yes USE MONITOR TO CHECK BLOOD SUGAR Kateryna Gauthier - Externa l Pantoprazol e Sodium 40 MG oral Tablet Delayed Response 03-04 00:00: 00 Yes [id number] TAKE 1 TABLET EVERY DAY Kateryna Gauthier - Externa l Blood Glucose Calibration (True Metrix Level 1) Low in vitro Solution 03-04 00:00: 00 Yes Kateryna Gauthier - Externa l Enalapril Maleate 10 MG oral Tablet 03-04 00:00: 00 Yes [id number] TAKE 1 TABLET EVERY DAY Kateryna Gauthier - Externa l Pantoprazol e Sodium 40 MG oral Tablet Delayed Response 03-04 00:00: 00 Yes [id number] TAKE 1 TABLET EVERY DAY Kateryna Gauthier - Externa l Blood Glucose Calibration (True Metrix Level 1) Low in vitro Solution 03-04 00:00: 00 Yes Kateryna Gauthier - Externa l Enalapril Maleate 10 MG oral Tablet 03-04 00:00: 00 Yes [id number] TAKE 1 TABLET EVERY DAY Kateryna Rojoold - Externa l Pantoprazol e Sodium 40 MG oral Tablet Delayed Response 03-04 00:00: 00 Yes [id number] TAKE 1 TABLET EVERY DAY Kateryna Rojoold - Externa l Blood Glucose Calibration (True Metrix Level 1) Low in vitro Solution 03-04 00:00: 00 Yes Kateryna Disha - Externa ludwig Enalapril Maleate 10 MG oral Tablet 03-04 00:00: 00 Yes [id number] TAKE 1 TABLET EVERY DAY Kateryna Disha - Externa l Pantoprazol e Sodium 40 MG oral Tablet Delayed Response 03-04 00:00: 00 Yes [id number] TAKE 1 TABLET EVERY DAY Kateryna Rojoold - Externa l Blood Glucose Calibration (True Metrix Level 1) Low in vitro Solution 03-04 00:00: 00 Yes Kateryna Disha Jasso Externa ludwig Enalapril Maleate 10 MG oral Tablet 03-04 00:00: 00 Yes [id number] TAKE 1 TABLET EVERY DAY Kateryna Gauthier - Externa l Pantoprazol e Sodium 40 MG oral Tablet Delayed Response 03-04 00:00: 00 Yes [id number] TAKE 1 TABLET EVERY DAY Kateryna Gauthier - Externa l Blood Glucose Calibration (True Metrix Level 1) Low in vitro Solution 03-04 00:00: 00 Yes Kateryna Disha Jasso Externa ludwig Pantoprazol e Sodium 40 MG oral Tablet Delayed Response 03-04 00:00: 00 Yes [id number] TAKE 1 TABLET EVERY DAY Kateryna Gauthier - Externa l Blood Glucose Calibration (True Metrix Level 1) Low in vitro Solution 03-04 00:00: 00 Yes Kateryna Disha - Externa l Pantoprazol e Sodium 40 MG oral Tablet Delayed Response 03-04 00:00: 00 Yes [id number] TAKE 1 TABLET EVERY DAY Kateryna Gauthier - Externa l Blood Glucose Calibration (True Metrix Level 1) Low in vitro Solution 03-04 00:00: 00 Yes Kateryna Gauthier - Externa ludwig Metoprolol Tartrate (LOPRESSOR) 25 MG oral Tablet 24 00:00: 00 Yes [id number] 25mg Take 1 tablet (25 mg total) by mouth 2 times daily Kateryna Gauthier - Externa l Metoprolol Tartrate (LOPRESSOR) 25 MG oral Tablet 24 00:00: 00 Yes [id number] 25mg Take 1 tablet (25 mg total) by mouth 2 times daily Kateryna Alvesa ludwig Metoprolol Tartrate (LOPRESSOR) 25 MG oral Tablet 03-03 00:00: 00 Yes [id number] 25mg Take 1 tablet (25 mg total) by mouth 2 times daily Kateryna Alvesa ludwig Metoprolol Tartrate (LOPRESSOR) 25 MG oral Tablet 03-03 00:00: 00 Yes [id number] 25mg Take 1 tablet (25 mg total) by mouth 2 times daily Kateryna Alvesa ludwig Metoprolol Tartrate (LOPRESSOR) 25 MG oral Tablet 03-03 00:00: 00 Yes [id number] 25mg Take 1 tablet (25 mg total) by mouth 2 times daily Kateryna Alvesa ludwig Metoprolol Tartrate (LOPRESSOR) 25 MG oral Tablet 03-03 00:00: 00 Yes [id number] 25mg Take 1 tablet (25 mg total) by mouth 2 times daily Kateryna munroe Metoprolol Tartrate (LOPRESSOR) 25 MG oral Tablet 03-03 00:00: 00 Yes [id number] 25mg Take 1 tablet (25 mg total) by mouth 2 times daily Kateryna munroe HYDROcodone -Acetaminop hen 10-325 MG oral Tablet 02-25 13:35: 39 Yes [id number] 1{tbl} QD Take 1 tablet by mouth daily as needed for pain Kateryna munroe Aspirin 81 MG oral Tablet Delayed Response 01-15 11:26: 27 Yes 1{tbl} Take 1 tablet by mouth Kateryna Alvesa ludwig Tizanidine HCl 4 MG oral Tablet 01-15 11:26: 27 Yes 1{tbl} Take 1 tablet by mouth at bedtime Kateryna munroe Aspirin 81 MG oral Tablet Delayed Response 01-15 11:26: 27 Yes 1{tbl} Take 1 tablet by mouth Kateryna Alvesa ludwig Tizanidine HCl 4 MG oral Tablet 01-15 11:26: 27 Yes 1{tbl} Take 1 tablet by mouth at bedtime Kateryna Seybold - Externa l Gabapentin 300 MG oral Capsule 3-08 00:00: 00 Yes 1 in AM, 1 at noon, and 2 at night Kateryna Seybold - Externa l Gabapentin 300 MG oral Capsule 3- 00:00: 00 Yes 1 in AM, 1 at noon, and 2 at night Kateryna Seybold - Externa l Gabapentin 300 MG oral Capsule 3 00:00: 00 03-07 00:00 :00 No 1 in AM, 1 at noon, and 2 at night Kateryna Seybold - Externa l Albuterol HFA 108 (90 Base) MCG/ACT IN AERS 01-02 00:00: 00 Yes [id number] 2{puff} Q.25D Inhale 2 puffs into the lungs every 6 hours as needed for wheezing Kateryna Seybold - Externa l Albuterol HFA 108 (90 Base) MCG/ACT IN AERS 01-02 00:00: 00 Yes [id number] 2{puff} Q.25D Inhale 2 puffs into the lungs every 6 hours as needed for wheezing Kateryna Seybold - Externa l Albuterol HFA 108 (90 Base) MCG/ACT IN AERS 01-02 00:00: 00 Yes [id number] 2{puff} Q.25D Inhale 2 puffs into the lungs every 6 hours as needed for wheezing Kateryna Seybold - Externa l Albuterol HFA 108 (90 Base) MCG/ACT IN AERS 01-02 00:00: 00 Yes [id number] 2{puff} Q.25D Inhale 2 puffs into the lungs every 6 hours as needed for wheezing Kateryna Seybold - Externa l Albuterol HFA 108 (90 Base) MCG/ACT IN AERS 01-02 00:00: 00 Yes [id number] 2{puff} Q.25D Inhale 2 puffs into the lungs every 6 hours as needed for wheezing Kateryna Seybold - Externa l Albuterol HFA 108 (90 Base) MCG/ACT IN AERS 01-02 00:00: 00 Yes [id number] 2{puff} Q.25D Inhale 2 puffs into the lungs every 6 hours as needed for wheezing Kateryna Seybold - Externa l Albuterol HFA 108 (90 Base) MCG/ACT IN AERS 01-02 00:00: 00 Yes [id number] 2{puff} Q.25D Inhale 2 puffs into the lungs every 6 hours as needed for wheezing Kateryna Seybold - Externa l Albuterol HFA 108 (90 Base) MCG/ACT IN AERS 01-02 00:00: 00 Yes [id number] 2{puff} Q.25D Inhale 2 puffs into the lungs every 6 hours as needed for wheezing Kateryna Seybold - Externa l Albuterol HFA 108 (90 Base) MCG/ACT IN AERS 01-02 00:00: 00 Yes [id number] 2{puff} Q.25D Inhale 2 puffs into the lungs every 6 hours as needed for wheezing Kateryna Seybold - Externa l Aspirin 81 MG oral Tablet Delayed Response 12-19 09:34: 36 Yes 1{tbl} Take 1 tablet by mouth Kateryna Seybold - Externa l Tizanidine HCl 4 MG oral Tablet 12-19 09:34: 36 Yes 1{tbl} Take 1 tablet by mouth at bedtime Kateryna Seybold - Externa l Aspirin 81 MG oral Tablet Delayed Response 12-19 09:34: 36 Yes 1{tbl} Take 1 tablet by mouth Kateryna Seybold - Externa l Tizanidine HCl 4 MG oral Tablet 12-19 09:34: 36 Yes 1{tbl} Take 1 tablet by mouth at bedtime Kateryna Seybold - Externa l Gabapentin 300 MG oral Capsule 12-19 00:00: 00 Yes 1 po q HS x 7 days, then 1 po BID x 7 days, then 1 po TID Kateryna Seybold - Externa l Gabapentin 300 MG oral Capsule 12-19 00:00: 00 Yes 1 po q HS x 7 days, then 1 po BID x 7 days, then 1 po TID Kateryna Seybold - Externa l Gabapentin 300 MG oral Capsule 12-19 00:00: 00 - 00:00 :00 No 1 po q HS x 7 days, then 1 po BID x 7 days, then 1 po TID Kateryna Alvesa ludwig Sertraline HCl 50 MG oral Tablet 12-03 00:00: 00 Yes 50mg Take 50 mg by mouth daily Kateryna Alvesa ludwig Zolpidem Tartrate 12.5 MG oral Tab CR 0 12-03 00:00: 00 Yes 12.5mg Take 12.5 mg by mouth at bedtime Kateryna Alvesa ludwig Sertraline HCl 50 MG oral Tablet 0 12-03 00:00: 00 Yes 50mg Take 50 mg by mouth daily Kateryna Alvesa ludwig Zolpidem Tartrate 12.5 MG oral Tab CR 0 12-03 00:00: 00 Yes 12.5mg Take 12.5 mg by mouth at bedtime Kateryna munroe Sertraline HCl 50 MG oral Tablet 0 12-03 00:00: 00 Yes 50mg Take 50 mg by mouth daily Kateryna Alvesa ludwig Zolpidem Tartrate 12.5 MG oral Tab CR 0 12-03 00:00: 00 Yes 12.5mg Take 12.5 mg by mouth at bedtime Kateryna Jasso Externa ludwig Sertraline HCl 50 MG oral Tablet 12-03 00:00: 00 Yes 50mg Take 50 mg by mouth daily Kateryna munroe Zolpidem Tartrate 12.5 MG oral Tab CR 0 12-03 00:00: 00 Yes 12.5mg Take 12.5 mg by mouth at bedtime Kateryna Jasso Externa ludwig Sertraline HCl 50 MG oral Tablet 0 12-03 00:00: 00 Yes 50mg Take 1 tablet (50 mg total) by mouth daily Kateryna Jasso Externa ludwig Zolpidem Tartrate 12.5 MG oral Tab CR 0 12-03 00:00: 00 Yes 12.5mg Take 1 tablet (12.5 mg total) by mouth at bedtime Kateryna Jasso Externa ludwig Sertraline HCl 50 MG oral Tablet 12-03 00:00: 00 Yes 50mg Take 1 tablet (50 mg total) by mouth daily Kateryna munroe Sertraline HCl 50 MG oral Tablet 12-03 00:00: 00 Yes 50mg Take 1 tablet (50 mg total) by mouth daily. Kateryna munroe Sertraline HCl 50 MG oral Tablet 12-03 00:00: 00 Yes 50mg Take 1 tablet (50 mg total) by mouth daily. Kateryna munroe Sertraline HCl 50 MG oral Tablet 12-03 00:00: 00 Yes 50mg Take 1 tablet (50 mg total) by mouth daily. Kateryna munroe Sertraline HCl 50 MG oral Tablet 12-03 00:00: 00 Yes 50mg Take 1 tablet (50 mg total) by mouth daily. Kateryna munroe Sertraline HCl 50 MG oral Tablet 12-03 00:00: 00 Yes 50mg Take 1 tablet (50 mg total) by mouth daily. Kateryna munroe Zolpidem Tartrate 12.5 MG oral Tab CR 12-03 00:00: 00 07-01 00:00 :00 No 12.5mg Take 1 tablet (12.5 mg total) by mouth at bedtime Kateryna munroe Bupropion HCL XL 150 MG OR TB24 11-27 13:30: 10 11-27 00:00 :00 No every 12 hours Kateryna munroe Gabapentin 600 MG oral Tablet 11-27 13:27: 29 11-27 00:00 :00 No 600mg Take 600 mg by mouth 3 times daily Kateryna munroe Aspirin 81 MG oral Tablet Delayed Response 11-27 13:13: 55 Yes 1{tbl} Take 1 tablet by mouth Kateryna munroe Tizanidine HCl 4 MG oral Tablet 11-27 13:13: 55 Yes 1{tbl} Take 1 tablet by mouth at bedtime Kateryna munroe HYDROcodone -Acetaminop hen (NORCO) 5-325 MG oral Tablet 18 00:00: 00 Yes [id number] 1{tbl} QD Take 1 tablet by mouth daily as needed for pain Kateryna Gauthier - Externa l Doxepin HCl 50 MG oral Capsule 18 00:00: 00 Yes [id number] 50mg Take 1 capsule (50 mg total) by mouth daily Kateryna Gauthier - Externa l Bupropion HCL XL 150 MG OR TB24 18 00:00: 00 Yes [id number] 150mg QD Take 1 tablet (150 mg total) by mouth daily as needed (anxiety) Kateryna Gauthier - Externa l HYDROcodone -Acetaminop hen (NORCO) 5-325 MG oral Tablet 11-27 00:00: 00 Yes [id number] 1{tbl} QD Take 1 tablet by mouth daily as needed for pain Kateryna Gauthier - Externa l Doxepin HCl 50 MG oral Capsule 0 11-27 00:00: 00 Yes [id number] 50mg Take 1 capsule (50 mg total) by mouth daily Kateryna Jasso Externa l Bupropion HCL XL 150 MG OR TB24 0 11-27 00:00: 00 Yes [id number] 150mg QD Take 1 tablet (150 mg total) by mouth daily as needed (anxiety) Kateryna Gauthier - Externa l HYDROcodone -Acetaminop hen (NORCO) 5-325 MG oral Tablet 11-27 00:00: 00 Yes [id number] 1{tbl} QD Take 1 tablet by mouth daily as needed for pain Kateryna Gauthier - Externa l Doxepin HCl 50 MG oral Capsule 11-27 00:00: 00 Yes [id number] 50mg Take 1 capsule (50 mg total) by mouth daily Kateryna Gauthier - Externa l Bupropion HCL XL 150 MG OR TB24 18 00:00: 00 Yes [id number] 150mg QD Take 1 tablet (150 mg total) by mouth daily as needed (anxiety) Kateryna Gauthier - Externa l HYDROcodone -Acetaminop hen (NORCO) 5-325 MG oral Tablet 18 00:00: 00 Yes [id number] 1{tbl} QD Take 1 tablet by mouth daily as needed for pain Kateryna Jasso Externa ludwig Doxepin HCl 50 MG oral Capsule 0 -18 00:00: 00 Yes [id number] 50mg Take 1 capsule (50 mg total) by mouth daily Kateryna Jenkinsediedayanna Jasso Externa l Bupropion HCL XL 150 MG OR TB24 0 -18 00:00: 00 Yes [id number] 150mg QD Take 1 tablet (150 mg total) by mouth daily as needed (anxiety) Kateryna Jasso Externa l Doxepin HCl 50 MG oral Capsule 0 -18 00:00: 00 Yes [id number] 50mg Take 1 capsule (50 mg total) by mouth daily Kateryna Jenkinsediedayanna Jasso Externa l Bupropion HCL XL 150 MG OR TB24 0 -18 00:00: 00 Yes [id number] 150mg QD Take 1 tablet (150 mg total) by mouth daily as needed (anxiety) Kateryna Jasso Externa ludwig Doxepin HCl 50 MG oral Capsule 0 11-27 00:00: 00 Yes [id number] 50mg Take 1 capsule (50 mg total) by mouth daily Kateryna Jenkinsediedayanna Jasso Externa ludwig Bupropion HCL XL 150 MG OR TB24 0 -18 00:00: 00 Yes [id number] 150mg QD Take 1 tablet (150 mg total) by mouth daily as needed (anxiety) Kateryna Jasso Externa ludwig Doxepin HCl 50 MG oral Capsule 0 18 00:00: 00 Yes [id number] 50mg Take 1 capsule (50 mg total) by mouth daily Kateryna Jenkinsediedayanna Jasso Externa l Bupropion HCL XL 150 MG OR TB24 2022-0 -18 00:00: 00 Yes [id number] 150mg QD Take 1 tablet (150 mg total) by mouth daily as needed (anxiety) Kateryna Jenkinsediedayanna - Externa l Doxepin HCl 50 MG oral Capsule 0 -18 00:00: 00 Yes [id number] 50mg Take 1 capsule (50 mg total) by mouth daily Kateryna Seediedayanna - Externa l Bupropion HCL XL 150 MG OR TB24 3-0 -18 00:00: 00 Yes [id number] 150mg QD Take 1 tablet (150 mg total) by mouth daily as needed (anxiety) Kateryna munroe Doxepin HCl 50 MG oral Capsule -18 00:00: 00 Yes [id number] 50mg Take 1 capsule (50 mg total) by mouth daily Kateryna Jasso Externa ludwig Bupropion HCL XL 150 MG OR TB24 0 -18 00:00: 00 Yes [id number] 150mg QD Take 1 tablet (150 mg total) by mouth daily as needed (anxiety) Kateryna munroe Doxepin HCl 50 MG oral Capsule 11-27 00:00: 00 Yes [id number] 50mg Take 1 capsule (50 mg total) by mouth daily Kateryna munroe Bupropion HCL XL 150 MG OR TB24 0 18 00:00: 00 Yes [id number] 150mg QD Take 1 tablet (150 mg total) by mouth daily as needed (anxiety) Kateryna munroe Doxepin HCl 50 MG oral Capsule 11-27 00:00: 00 Yes [id number] 50mg Take 1 capsule (50 mg total) by mouth daily Kateryna munroe Bupropion HCL XL 150 MG OR TB24 0 11-27 00:00: 00 Yes [id number] 150mg QD Take 1 tablet (150 mg total) by mouth daily as needed (anxiety) Kateryna munroe Doxepin HCl 50 MG oral Capsule 11-27 00:00: 00 Yes [id number] 50mg Take 1 capsule (50 mg total) by mouth daily Kateryna munroe Bupropion HCL XL 150 MG OR TB24 0 18 00:00: 00 Yes [id number] 150mg QD Take 1 tablet (150 mg total) by mouth daily as needed (anxiety) Kateryna munroe HYDROcodone -Acetaminop hen (NORCO) 5-325 MG oral Tablet 11-27 00:00: 00 18 00:00 :00 No [id number] 1{tbl} QD Take 1 tablet by mouth daily as needed for pain Kateryna Seybold - Externa l Amoxicillin -Pot Clavulanate 875-125 MG oral Tablet 11-14 00:00: 00 Yes [id number] 1{tbl} Take 1 tablet by mouth 2 times daily Kateryna Jasso Externa l Benzonatate (Tessalon Perles) 100 MG oral Capsule 11-14 00:00: 00 Yes [id number] 100mg [id number] 3D Take 1 capsule (100 mg total) by mouth 3 times daily as needed for cough Kateryna Jasso Externa l Amoxicillin -Pot Clavulanate 875-125 MG oral Tablet 11-14 00:00: 00 11-27 00:00 :00 No [id number] 1{tbl} Take 1 tablet by mouth 2 times daily Kateryna Jasso Externa l Benzonatate (Tessalon Perles) 100 MG oral Capsule 11-14 00:00: 00 11-27 00:00 :00 No [id number] 100mg Q.[id number] 3D Take 1 capsule (100 mg total) by mouth 3 times daily as needed for cough Kateryna Jasso Externa l Bupropion HCL XL 150 MG OR TB24 2021-11 09:03: 09 Yes every 12 hours Kateryna Jasso Externa ludwig Tizanidine HCl 4 MG oral Tablet 2021-11 09:03: 09 Yes 1{tbl} Take 1 tablet by mouth at bedtime Kateryna Jasso Externa ludwig Gabapentin 600 MG oral Tablet 2021-11 09:03: 09 Yes 600mg Take 600 mg by mouth 3 times daily Kateryna Jasso Externa l Bupropion HCL XL 150 MG OR TB24 2021-11 09:03: 09 Yes every 12 hours Kateryna Jasso Externa l Tizanidine HCl 4 MG oral Tablet 2021-11 09:03: 09 Yes 1{tbl} Take 1 tablet by mouth at bedtime Kateryna Jasso Externa l Gabapentin 600 MG oral Tablet 2021-11 09:03: 09 Yes 600mg Take 600 mg by mouth 3 times daily Katerynaluis alfredo Alvesa ludwig Aspirin 81 MG oral Tablet Delayed Response 2021-11 09:00: 22 Yes 1{tbl} Take 1 tablet by mouth Kateryna Alvesa ludwig Aspirin 81 MG oral Tablet Delayed Response 2021-11 09:00: 22 Yes 1{tbl} Take 1 tablet by mouth Kateryna Alvesa ludwig Aspirin 81 MG oral Tablet Delayed Response 2021-11 09:30: 15 Yes 1{tbl} Take 1 tablet by mouth Kateryna munroe Bupropion HCL XL 150 MG OR TB24 2021-11 09:30: 15 Yes every 12 hours Kateryna munroe Tizanidine HCl 4 MG oral Tablet 2021-11 09:30: 15 Yes 1{tbl} Take 1 tablet by mouth at bedtime Kateryna munroe Gabapentin 600 MG oral Tablet 2021-11 09:30: 15 Yes 600mg Take 600 mg by mouth 3 times daily Kateryna Alvesa ludwig Enalapril Maleate 10 MG oral Tablet 2021-11 00:00: 00 Yes [id number] 10mg Take 1 tablet (10 mg total) by mouth daily Kateryna Alvesa ludwig Pantoprazol e Sodium 40 MG oral Tablet Delayed Response 2021-11 00:00: 00 Yes [id number] 40mg Take 1 tablet (40 mg total) by mouth daily Kateryna Alvesa ludwig Enalapril Maleate 10 MG oral Tablet 2021-11 00:00: 00 Yes [id number] 10mg Take 1 tablet (10 mg total) by mouth daily Kateryna Jasso Externa ludwig Pantoprazol e Sodium 40 MG oral Tablet Delayed Response 2021-11 00:00: 00 Yes [id number] 40mg Take 1 tablet (40 mg total) by mouth daily Kateryna Jasso Externa ludwig Enalapril Maleate 10 MG oral Tablet 2021-11 00:00: 00 Yes [id number] 10mg Take 1 tablet (10 mg total) by mouth daily Kateryna Jasso Externa ludwig Pantoprazol e Sodium 40 MG oral Tablet Delayed Response 2021-11 00:00: 00 Yes [id number] 40mg Take 1 tablet (40 mg total) by mouth daily Kateryna Gauthier - Externa l Enalapril Maleate 10 MG oral Tablet 2021-11 00:00: 00 Yes [id number] 10mg Take 1 tablet (10 mg total) by mouth daily Kateryna Gauthier - Externa l Pantoprazol e Sodium 40 MG oral Tablet Delayed Response 2021-11 00:00: 00 Yes [id number] 40mg Take 1 tablet (40 mg total) by mouth daily Kateryna Gauthier - Externa l Enalapril Maleate 10 MG oral Tablet 2021-11 00:00: 00 Yes [id number] 10mg Take 1 tablet (10 mg total) by mouth daily Kateryna Gauthier - Externa l Pantoprazol e Sodium 40 MG oral Tablet Delayed Response 2021-11 00:00: 00 Yes [id number] 40mg Take 1 tablet (40 mg total) by mouth daily Kateryna Gauthier - Externa ludwig Enalapril Maleate 10 MG oral Tablet 2021-11 00:00: 00 Yes [id number] 10mg Take 1 tablet (10 mg total) by mouth daily Kateryna Gauthier - Externa ludwig Pantoprazol e Sodium 40 MG oral Tablet Delayed Response 2021-11 00:00: 00 Yes [id number] 40mg Take 1 tablet (40 mg total) by mouth daily Kateryna Gauthier - Externa ludwig Enalapril Maleate 10 MG oral Tablet 2021-11 00:00: 00 Yes [id number] 10mg Take 1 tablet (10 mg total) by mouth daily Kateryna Gauthier - Externa ludwig Pantoprazol e Sodium 40 MG oral Tablet Delayed Response 2021-11 00:00: 00 Yes [id number] 40mg Take 1 tablet (40 mg total) by mouth daily Kateryna Gauthier - Externa l Enalapril Maleate 10 MG oral Tablet 2021-11 00:00: 00 Yes [id number] 10mg Take 1 tablet (10 mg total) by mouth daily Kateryna Gauthier - Externa l Pantoprazol e Sodium 40 MG oral Tablet Delayed Response 2021-11 00:00: 00 Yes [id number] 40mg Take 1 tablet (40 mg total) by mouth daily Kateryna munroe Enalapril Maleate 20 MG oral Tablet 07-29 00:00: 00 09-09 00:00 :00 No [id number] 20mg Take 1 tablet (20 mg total) by mouth daily Kateryna Alvesa l Blood Glucose Monitoring Suppl (Blood Glucose Monitor System) w/Device does not apply Kit 0 07-09 00:00: 00 Yes Use monitor to check blood sugar Kateryna Jasso Externa l Blood Glucose Monitoring Suppl (Blood Glucose Monitor System) w/Device does not apply Kit 2021-0 07-09 00:00: 00 Yes Use to check FSBS as needed. Kateryna Gauthier - Externa l Glucose Blood in vitro Strip 07-09 00:00: 00 Yes [id number] 1{each} 1 each by other route daily Use 1 as directed twice daily to check blood glucose. Kateryna Alvesa l GNP Sterile Lancets 33G does not apply Misc 0 07-09 00:00: 00 Yes 1{each} 1 each by does not apply route 2 to 3 times daily Kateryna Gauthier - Externa l Blood Glucose Monitoring Suppl (Blood Glucose Monitor System) w/Device does not apply Kit 2021-0 07-09 00:00: 00 Yes Use monitor to check blood sugar Kateryna Alvesa l Blood Glucose Monitoring Suppl (Blood Glucose Monitor System) w/Device does not apply Kit 2021-0 07-09 00:00: 00 Yes Use to check FSBS as needed. Kateryna Gauthier - Externa l Glucose Blood in vitro Strip 07-09 00:00: 00 Yes [id number] 1{each} 1 each by other route daily Use 1 as directed twice daily to check blood glucose. Kateryna Gauthier - Externa l GNP Sterile Lancets 33G does not apply Misc 0 07-09 00:00: 00 Yes 1{each} 1 each by does not apply route 2 to 3 times daily Kateryna Gauthier - Externa l Blood Glucose Monitoring Suppl (Blood Glucose Monitor System) w/Device does not apply Kit 2021-0 07-09 00:00: 00 Yes Use monitor to check blood sugar Kateryna munroe Blood Glucose Monitoring Suppl (Blood Glucose Monitor System) w/Device does not apply Kit 07-09 00:00: 00 Yes Use to check FSBS as needed. Kateryna munroe Glucose Blood in vitro Strip 07-09 00:00: 00 Yes [id number] 1{each} 1 each by other route daily Use 1 as directed twice daily to check blood glucose. Kateryna munroe GNP Sterile Lancets 33G does not apply Misc 07-09 00:00: 00 Yes 1{each} 1 each by does not apply route 2 to 3 times daily Kateryna munroe OrthoVisc OrthoVisc 0 07-09 00:00: 00 No 15mg [facility] OrthoVisc OrthoVisc 2021-0 8 00:00: 00 No 15mg [facility] OrthoVisc OrthoVisc 2021-0 8 00:00: 00 No 15mg [facility] OrthoVisc OrthoVisc 2021-0 8 00:00: 00 No 15mg [facility] OrthoVisc OrthoVisc 2-0 8 00:00: 00 No 15mg [facility] OrthoVisc OrthoVisc 2-0 8 00:00: 00 No 15mg [facility] OrthoVisc OrthoVisc 2-0 8 00:00: 00 No 15mg [facility] OrthoVisc OrthoVisc 2021-0 8 00:00: 00 No 15mg [facility] OrthoVisc OrthoVisc 2-0 8 00:00: 00 No 15mg [facility] OrthoVisc OrthoVisc 2-0 8 00:00: 00 No 15mg [facility] OrthoVisc OrthoVisc 2-0 830 00:00: 00 No 15mg [facility] Blood Glucose Monitoring Suppl (Blood Glucose Monitor System) w/Device does not apply Kit 07-09 00:00: 00 11-27 00:00 :00 No Use monitor to check blood sugar Kateryna munroe Blood Glucose Monitoring Suppl (Blood Glucose Monitor System) w/Device does not apply Kit 07-09 00:00: 00 11-27 00:00 :00 No Use to check FSBS as needed. Kateryna munroe Glucose Blood in vitro Strip 07-09 00:00: 11-27 00:00 :00 No [id number] 1{each} 1 each by other route daily Use 1 as directed twice daily to check blood glucose. Kateryna munroe GNP Sterile Lancets 33G does not apply Misc 07-09 00:00: 00 11-27 00:00 :00 No 1{each} 1 each by does not apply route 2 to 3 times daily Kateryna munroe Metformin HCl 1000 MG oral Tablet 07-07 00:00: 00 Yes [id number] 1000mg Take 1 tablet (1,000 mg total) by mouth in the morning and 1 tablet (1,000 mg total) in the evening. Take with meals. Kateryna munroe Metoprolol Tartrate 25 MG oral Tablet 07-07 00:00: 00 Yes [id number] 25mg Take 1 tablet (25 mg total) by mouth 2 times daily Kateryna munroe Atorvastati n Calcium 40 MG oral Tablet 07-07 00:00: 00 Yes [id number] 40mg Take 1 tablet (40 mg total) by mouth daily Kateryna munroe Metformin HCl 1000 MG oral Tablet 07-07 00:00: 00 Yes [id number] 1000mg Take 1 tablet (1,000 mg total) by mouth in the morning and 1 tablet (1,000 mg total) in the evening. Take with meals. Kateryna munroe Metoprolol Tartrate 25 MG oral Tablet 07-07 00:00: 00 Yes [id number] 25mg Take 1 tablet (25 mg total) by mouth 2 times daily Kateryna munroe Atorvastati n Calcium 40 MG oral Tablet 07-07 00:00: 00 Yes [id number] 40mg Take 1 tablet (40 mg total) by mouth daily Kateryna Jenkinsediedayanna Jasso Joselynjose manuel ludwig Metformin HCl 1000 MG oral Tablet 07-07 00:00: 00 Yes [id number] 1000mg Take 1 tablet (1,000 mg total) by mouth in the morning and 1 tablet (1,000 mg total) in the evening. Take with meals. Kateryna Disha Alvesjose manuel ludwig Metoprolol Tartrate 25 MG oral Tablet 07-07 00:00: 00 Yes [id number] 25mg Take 1 tablet (25 mg total) by mouth 2 times daily Kateryna Disha munroe Atorvastati n Calcium 40 MG oral Tablet 07-07 00:00: 00 Yes [id number] 40mg Take 1 tablet (40 mg total) by mouth daily Kateryna munroe Metformin HCl 1000 MG oral Tablet 07-07 00:00: 00 Yes [id number] 1000mg Take 1 tablet (1,000 mg total) by mouth in the morning and 1 tablet (1,000 mg total) in the evening. Take with meals. Kateryna Disha Alvesjose manuel ludwig Metoprolol Tartrate 25 MG oral Tablet 07-07 00:00: 00 Yes [id number] 25mg Take 1 tablet (25 mg total) by mouth 2 times daily Kateryna munroe Atorvastati n Calcium 40 MG oral Tablet 07-07 00:00: 00 Yes [id number] 40mg Take 1 tablet (40 mg total) by mouth daily Kateryna Seoliverio Romero Joselynjose manuel ludwig Metformin HCl 1000 MG oral Tablet 07-07 00:00: 00 Yes [id number] 1000mg Take 1 tablet (1,000 mg total) by mouth in the morning and 1 tablet (1,000 mg total) in the evening. Take with meals. Kateryna Darreldayanna Romero Alvesjose manuel ludwig Metoprolol Tartrate 25 MG oral Tablet 07-07 00:00: 00 Yes [id number] 25mg Take 1 tablet (25 mg total) by mouth 2 times daily Kateryna munroe Atorvastati n Calcium 40 MG oral Tablet 07-07 00:00: 00 Yes [id number] 40mg Take 1 tablet (40 mg total) by mouth daily Kateryna Jenkinsediedayanna Jasso Joselynjose manuel ludwig Metformin HCl 1000 MG oral Tablet 07-07 00:00: 00 Yes [id number] 1000mg Take 1 tablet (1,000 mg total) by mouth in the morning and 1 tablet (1,000 mg total) in the evening. Take with meals. Kateryna Disha munroe Metoprolol Tartrate 25 MG oral Tablet 07-07 00:00: 00 Yes [id number] 25mg Take 1 tablet (25 mg total) by mouth 2 times daily Kateryna Disha munroe Atorvastati n Calcium 40 MG oral Tablet 07-07 00:00: 00 Yes [id number] 40mg Take 1 tablet (40 mg total) by mouth daily Kateryna Disha munroe Metformin HCl 1000 MG oral Tablet 07-07 00:00: 00 Yes [id number] 1000mg Take 1 tablet (1,000 mg total) by mouth in the morning and 1 tablet (1,000 mg total) in the evening. Take with meals. Kateryna Disha munroe Metoprolol Tartrate 25 MG oral Tablet 07-07 00:00: 00 Yes [id number] 25mg Take 1 tablet (25 mg total) by mouth 2 times daily Kateryna Disha munroe Atorvastati n Calcium 40 MG oral Tablet 07-07 00:00: 00 Yes [id number] 40mg Take 1 tablet (40 mg total) by mouth daily Kateryna Disha munroe Metformin HCl 1000 MG oral Tablet 07-07 00:00: 00 Yes [id number] 1000mg Take 1 tablet (1,000 mg total) by mouth in the morning and 1 tablet (1,000 mg total) in the evening. Take with meals. Kateryna Disha munroe Metoprolol Tartrate 25 MG oral Tablet 07-07 00:00: 00 Yes [id number] 25mg Take 1 tablet (25 mg total) by mouth 2 times daily Kateryna munroe Atorvastati n Calcium 40 MG oral Tablet 07-07 00:00: 00 Yes [id number] 40mg Take 1 tablet (40 mg total) by mouth daily Kateryna munroe Metformin HCl 1000 MG oral Tablet 07-07 00:00: 00 Yes [id number] 1000mg Take 1 tablet (1,000 mg total) by mouth in the morning and 1 tablet (1,000 mg total) in the evening. Take with meals. Kateryna munroe Atorvastati n Calcium 40 MG oral Tablet 07-07 00:00: 00 Yes [id number] 40mg Take 1 tablet (40 mg total) by mouth daily Kateryna munroe Atorvastati n Calcium 40 MG oral Tablet 07-07 00:00: 00 Yes [id number] 40mg Take 1 tablet (40 mg total) by mouth daily Kateryna munroe Atorvastati n Calcium 40 MG oral Tablet 07-07 00:00: 00 Yes [id number] 40mg Take 1 tablet (40 mg total) by mouth daily Kateryna munroe Atorvastati n Calcium 40 MG oral Tablet 07-07 00:00: 00 Yes [id number] 40mg Take 1 tablet (40 mg total) by mouth daily Kateryna munroe Atorvastati n Calcium 40 MG oral Tablet 07-07 00:00: 00 Yes [id number] 40mg Take 1 tablet (40 mg total) by mouth daily Kateryna munroe Atorvastati n Calcium 40 MG oral Tablet 07-07 00:00: 00 Yes [id number] 40mg Take 1 tablet (40 mg total) by mouth daily Kateryna munroe Metformin HCl 1000 MG oral Tablet 07-07 00:00: 00 07-01 00:00 :00 No [id number] 1000mg Take 1 tablet (1,000 mg total) by mouth in the morning and 1 tablet (1,000 mg total) in the evening. Take with meals. Kateryna munroe Applicators (Q-Tips/Sin gle-Tip) does not apply SWAB 07-04 00:00: 00 Yes Use swab to clean site Kateryna Seybold - Externa l Applicators (Q-Tips/Sin gle-Tip) does not apply SWAB 2021-0 07-04 00:00: 00 Yes Use swab to clean site Kateryna Seybold - Externa l Applicators (Q-Tips/Sin gle-Tip) does not apply SWAB 2021-0 07-04 00:00: 00 Yes Use swab to clean site Kateryna Seybold - Externa l Applicators (Q-Tips/Sin gle-Tip) does not apply SWAB 2021-0 07-04 00:00: 00 11-27 00:00 :00 No Use swab to clean site Kateryna Seybold - Externa l [facility] Ortho[facility]isc 2021-0 8 00:00: 00 No [facility] OrthoVisc OrthoVisc 2021-0 8- 00:00: 00 No 15[facility] Orth[facility]isc OrthoVisc 2-0 8- 00:00: 00 No 15[facility] OrthoVisc OrthoVisc 2-0 8- 00:00: 00 No 15[facility] OrthoVisc OrthoVisc 2-0 8-23 00:00: 00 No 15mg [facility] OrthoVisc OrthoVisc 2-0 8-23 00:00: 00 No [facility] OrthoVisc OrthoVisc 2-0 8-23 00:00: 00 No 15[facility] OrthoVisc OrthoVisc 2-0 8-23 00:00: 00 No 15[facility] OrthoVisc OrthoVisc 2-0 8-23 00:00: 00 No [facility] OrthoVisc OrthoVisc 2-0 8-23 00:00: 00 No 15[facility] OrthoVisc OrthoVisc 2-0 8-23 00:00: 00 No 15[facility] OrthoVisc OrthoVisc 2-0 8-17 00:00: 00 No 15mg [facility] OrthoVisc OrthoVisc 2-0 8-17 00:00: 00 No 15mg [facility] OrthoVisc OrthoVisc 2-0 8-17 00:00: 00 No 15mg [facility] OrthoVisc OrthoVisc 2-0 8-17 00:00: 00 No 15mg [facility] OrthoVisc OrthoVisc 2-0 8-17 00:00: 00 No 15mg [facility] OrthoVisc OrthoVisc 2-0 8-17 00:00: 00 No 15mg [facility] OrthoVisc OrthoVisc 2-0 8-17 00:00: 00 No 15mg [facility] OrthoVisc OrthoVisc 2-0 8-17 00:00: 00 No 15mg [facility] OrthoVisc OrthoVisc 2-0 8-17 00:00: 00 No 15mg [facility] OrthoVisc OrthoVisc 2-0 8-17 00:00: 00 No 15mg [facility] OrthoVisc OrthoVisc 2-0 8-17 00:00: 00 No 15mg [facility] Duloxetine HCl [address] Particles 0 04-11 00:00: 00 Yes 120mg Take 120 mg by mouth daily Kateryna munroe Eszopiclone 2 MG oral Tablet 0 04-11 00:00: 00 Yes TAKE 1 TABLET BY MOUTH ONCE DAILY IMMEDIATEL Y BEFORE BEDTIME NEEDED Kateryna munroe Duloxetine HCl [address] Particles 0 04-11 00:00: 00 Yes 120mg Take 120 mg by mouth daily Kateryna munroe Eszopiclone 2 MG oral Tablet 2021-0 04-11 00:00: 00 Yes TAKE 1 TABLET BY MOUTH ONCE DAILY IMMEDIATEL Y BEFORE BEDTIME NEEDED Kateryna munroe Duloxetine HCl [address] Particles 04-11 00:00: 00 Yes 120mg Take 120 mg by mouth daily Kateryna munroe Eszopiclone 2 MG oral Tablet 04-11 00:00: 00 Yes TAKE 1 TABLET BY MOUTH ONCE DAILY IMMEDIATEL Y BEFORE BEDTIME NEEDED Kateryna munroe Duloxetine HCl [address] Particles 04-11 00:00: 00 Yes 120mg Take 120 mg by mouth daily Kateryna munroe Eszopiclone 2 MG oral Tablet 04-11 00:00: 00 Yes TAKE 1 TABLET BY MOUTH ONCE DAILY IMMEDIATEL Y BEFORE BEDTIME NEEDED Kateryna munroe Duloxetine HCl [address] Particles 04-11 00:00: 00 Yes 120mg Take 120 mg by mouth daily Kateryna munroe Eszopiclone 2 MG oral Tablet 0 04-11 00:00: 00 Yes TAKE 1 TABLET BY MOUTH ONCE DAILY IMMEDIATEL Y BEFORE BEDTIME NEEDED Kateryna munroe Eszopiclone 2 MG oral Tablet 04-11 00:00: 00 Yes TAKE 1 TABLET BY MOUTH ONCE DAILY IMMEDIATEL Y BEFORE BEDTIME NEEDED Kateryna munroe Duloxetine HCl [address] Particles 04-11 00:00: 00 Yes 120mg Take 120 mg by mouth daily Kateryna munroe Eszopiclone 2 MG oral Tablet 04-11 00:00: 00 Yes TAKE 1 TABLET BY MOUTH ONCE DAILY IMMEDIATEL Y BEFORE BEDTIME NEEDED Kateryna munroe Eszopiclone 2 MG oral Tablet 04-11 00:00: 00 02-25 00:00 :00 No TAKE 1 TABLET BY MOUTH ONCE DAILY IMMEDIATEL Y BEFORE BEDTIME NEEDED Kateryna munroe Flomax 0.4 MG Flomax 0.4 MG 03-28 00:00: 00 06-29 00:00 :00 No 1{capsu le} QD Flomax 0.4 MG Bupivicaine [place] Bupivicaine [place] 2022-0 4-19 00:00: 00 No 2.5mg [facility] Kenalog (Triamcinol one) Kenalog (Triamcinol one) 2021-0 - 00:00: 00 No 40mg [facility] Bupivicaine [place] Bupivicaine [place] 0 02-26 00:00: 00 No 2.5mg [facility] Kenalog (Triamcinol one) Kenalog (Triamcinol one) 0 - 00:00: 00 No 40mg [facility] Bupivicaine [place] Bupivicaine [place] 2021-0 02-26 00:00: 00 No 2.5mg [facility] Kenalog (Triamcinol one) Kenalog (Triamcinol one) 0 02-26 00:00: 00 No 40mg [facility] Bupivicaine [place] Bupivicaine [place] 2021-0 02-26 00:00: 00 No 2.5mg [facility] Kenalog (Triamcinol one) Kenalog (Triamcinol one) 0 02-26 00:00: 00 No 40mg [facility] Bupivicaine [place] Bupivicaine [place] 2021-0 02-26 00:00: 00 No 2.5mg [facility] Kenalog (Triamcinol one) Kenalog (Triamcinol one) 0 - 00:00: 00 No 40mg [facility] Bupivicaine [place] Bupivicaine [place] 2021-0 02-26 00:00: 00 No 2.5mg [facility] Kenalog (Triamcinol one) Kenalog (Triamcinol one) 0 - 00:00: 00 No 40mg [facility] Bupivicaine [place] Bupivicaine [place] 2021-0 419 00:00: 00 No 2.5mg [facility] Kenalog (Triamcinol one) Kenalog (Triamcinol one) 0 - 00:00: 00 No 40mg [facility] Bupivicaine [place] Bupivicaine [place] 0 02-26 00:00: 00 No 2.5mg [facility] Kenalog (Triamcinol one) Kenalog (Triamcinol one) 0 4- 00:00: 00 No 40mg [facility] Bupivicaine [place] Bupivicaine [place] 0 02-26 00:00: 00 No 2.5mg [facility] Kenalog (Triamcinol one) Kenalog (Triamcinol one) 0 - 00:00: 00 No 40mg [facility] Bupivicaine [place] Bupivicaine [place] 0 02-26 00:00: 00 No 2.5mg [facility] Kenalog (Triamcinol one) Kenalog (Triamcinol one) 0 - 00:00: 00 No 40mg [facility] Bupivicaine [place] Bupivicaine [place] 0 02-26 00:00: 00 No 2.5mg [facility] Kenalog (Triamcinol one) Kenalog (Triamcinol one) 0 02-26 00:00: 00 No 40[facility] Trazodone HCl 50 MG oral Tablet 0 02-25 00:00: 00 Yes 1{tbl} QD Take 1 tablet by mouth nightly as needed Kateryna Alvesa ludwig Trazodone HCl 50 MG oral Tablet 0 18 00:00: 00 Yes 1{tbl} QD Take 1 tablet by mouth nightly as needed Kateryna Gauthier - Externa l Trazodone HCl 50 MG oral Tablet 0 18 00:00: 00 Yes 1{tbl} QD Take 1 tablet by mouth nightly as needed Kateryna Gauthier - Externa l Trazodone HCl 50 MG oral Tablet 0 -18 00:00: 00 Yes 1{tbl} QD Take 1 tablet by mouth nightly as needed Kateryna Jasso Externa ludwig Trazodone HCl 50 MG oral Tablet 2021-0 18 00:00: 00 Yes 1{tbl} QD Take 1 tablet by mouth nightly as needed Kateryna Gauthier - Externa l Trazodone HCl 50 MG oral Tablet 2021-0 18 00:00: 00 Yes 1{tbl} QD Take 1 tablet by mouth nightly as needed Kateryna Jasso Externa l Alprazolam 0.5 MG oral Tablet 0 02-11 00:00: 00 Yes .5mg QD Take 0.5 mg by mouth daily as needed Kateryna Jasso Externa ludwig Alprazolam 0.5 MG oral Tablet 0 02-11 00:00: 00 Yes .5mg QD Take 0.5 mg by mouth daily as needed Kateryna Jasso Externa ludwig Alprazolam 0.5 MG oral Tablet 0 02-11 00:00: 00 Yes .5mg QD Take 0.5 mg by mouth daily as needed Kateryna Jasso Externa ludwig Alprazolam 0.5 MG oral Tablet 0 02-11 00:00: 00 Yes .5mg QD Take 0.5 mg by mouth daily as needed Kateryna Jasso Externa ludwig Alprazolam 0.5 MG oral Tablet 0 02-11 00:00: 00 Yes .5mg QD Take 0.5 mg by mouth daily as needed Kateryna Jasso Externa ludwig Alprazolam 0.5 MG oral Tablet 0 02-11 00:00: 00 Yes .5mg QD Take 0.5 mg by mouth daily as needed Kateryna Jasso Externa l Alprazolam 0.5 MG oral Tablet 0 02-11 00:00: 00 Yes .5mg QD Take 0.5 mg by mouth daily as needed Kateryna Jasso Externa l Alprazolam 0.5 MG oral Tablet 2021-0 02-11 00:00: 00 Yes .5mg QD Take 1 tablet (0.5 mg total) by mouth daily as needed Kateryna Jasso Externa ludwig Alprazolam 0.5 MG oral Tablet 02-11 00:00: 00 Yes .5mg QD Take 1 tablet (0.5 mg total) by mouth daily as needed Kateryna munroe Alprazolam 0.5 MG oral Tablet 02-11 00:00: 00 Yes .5mg QD Take 1 tablet (0.5 mg total) by mouth daily as needed. Kateryna munroe Alprazolam 0.5 MG oral Tablet 02-11 00:00: 00 Yes .5mg QD Take 1 tablet (0.5 mg total) by mouth daily as needed. Kateryna munroe Alprazolam 0.5 MG oral Tablet 02-11 00:00: 00 Yes .5mg QD Take 1 tablet (0.5 mg total) by mouth daily as needed. Kateryna munroe Alprazolam 0.5 MG oral Tablet 02-11 00:00: 00 Yes .5mg QD Take 1 tablet (0.5 mg total) by mouth daily as needed. Kateryna munroe Alprazolam 0.5 MG oral Tablet 02-11 00:00: 00 Yes .5mg QD Take 1 tablet (0.5 mg total) by mouth daily as needed. Kateryna munroe Alprazolam 0.5 MG oral Tablet 02-11 00:00: 00 Yes .5mg QD Take 0.5 mg by mouth daily as needed Kateryna munroe Atorvastati n Calcium 40 MG Atorvastati n Calcium 40 MG 01-30 00:00: 00 No 1{table t} QD Atorvastat in Calcium 40 MG Atorvastati n Calcium 40 MG Atorvastati n Calcium 40 MG 0 01-30 00:00: 00 No 1{table t} QD Atorvastat in Calcium 40 MG Atorvastati n Calcium 40 MG Atorvastati n Calcium 40 MG 01-30 00:00: 00 No 1{table t} QD Atorvastat in Calcium 40 MG Atorvastati n Calcium 40 MG Atorvastati n Calcium 40 MG 01-30 00:00: 00 No 1{table t} QD Atorvastat in Calcium 40 MG Atorvastati n Calcium 40 MG Atorvastati n Calcium 40 MG 2021-0 3 00:00: 00 No 1{table t} QD Atorvastat in Calcium 40 MG Atorvastati n Calcium 40 MG Atorvastati n Calcium 40 MG 2021-0 3 00:00: 00 No 1{table t} QD Atorvastat in Calcium 40 MG Atorvastati n Calcium 40 MG Atorvastati n Calcium 40 MG 2021-0 3 00:00: 00 No 1{table t} QD Atorvastat in Calcium 40 MG Atorvastati n Calcium 40 MG Atorvastati n Calcium 40 MG 0 3 00:00: 00 No 1{table t} QD Atorvastat in Calcium 40 MG Atorvastati n Calcium 40 MG Atorvastati n Calcium 40 MG 2021-0 3 00:00: 00 No 1{table t} QD Atorvastat in Calcium 40 MG Atorvastati n Calcium 40 MG Atorvastati n Calcium 40 MG 0 01-30 00:00: 00 No 1{table t} QD Atorvastat in Calcium 40 MG Atorvastati n Calcium 40 MG Atorvastati n Calcium 40 MG 0 01-30 00:00: 00 No 1{table t} QD Atorvastat in Calcium 40 MG Nitrofurant oin Monohyd Macro 100 MG oral Capsule 11-29 00:00: 00 Yes [id number] 100mg Take 1 capsule (100 mg total) by mouth 2 times daily Kateryna munroe Nitrofurant oin Monohyd Macro 100 MG oral Capsule 0 11-29 00:00: 00 Yes [id number] 100mg Take 1 capsule (100 mg total) by mouth 2 times daily Kateryna Gauthier - Externa l Nitrofurant oin Monohyd Macro 100 MG oral Capsule 0 11-29 00:00: 00 Yes [id number] 100mg Take 1 capsule (100 mg total) by mouth 2 times daily Kateryna Gauthier - Externa l Nitrofurant oin Monohyd Macro 100 MG oral Capsule 11-29 00:00: 11-27 00:00 :00 No [id number] 100mg Take 1 capsule (100 mg total) by mouth 2 times daily Kateryna Disha Alvesa ludwig Aspirin (Aspir-Low) 81 MG oral Tablet Delayed Response 11-26 11:06: 52 Yes 1{tbl} Take 1 tablet by mouth Kateryna Gauthier Bupropion HCL XL 150 MG OR TB24 11-26 11:06: 52 Yes every 12 hours Kateryna Gauthier Tizanidine HCl 4 MG oral Tablet 11-26 11:06: 52 Yes 1{tbl} Take 1 tablet by mouth at bedtime Kateryna Gauthier Metformin HCl 1000 MG oral Tablet 11-26 11:06: 52 Yes 1000mg Take 1,000 mg by mouth 2 times daily (with meals) Kateryna Gauthier Gabapentin 600 MG oral Tablet 11-26 11:06: 52 Yes 600mg Take 600 mg by mouth 3 times daily Kateryna Gauthier Albuterol HFA 108 (90 Base) MCG/ACT IN AERS 11-26 00:00: 00 Yes [id number] 2{puff} Q.25D Inhale 2 puffs into the lungs every 6 hours as needed for wheezing Kateryna Disha - Externa l Albuterol HFA 108 (90 Base) MCG/ACT IN AERS 11-26 00:00: 00 Yes [id number] 2{puff} Q.25D Inhale 2 puffs into the lungs every 6 hours as needed for wheezing Kateryna Jenkinsoliverio - Externa l Albuterol HFA 108 (90 Base) MCG/ACT IN AERS 11-26 00:00: 00 Yes [id number] 2{puff} Q.25D Inhale 2 puffs into the lungs every 6 hours as needed for wheezing Kateryna Jenkinsedieold - Externa l Albuterol HFA 108 (90 Base) MCG/ACT IN AERS 11-26 00:00: 00 Yes [id number] 2{puff} Q.25D Inhale 2 puffs into the lungs every 6 hours as needed for wheezing Kateryna Seybold - Externa l Albuterol HFA 108 (90 Base) MCG/ACT IN AERS 2022-0 1-17 00:00: 00 Yes [id number] 2{puff} Q.25D Inhale 2 puffs into the lungs every 6 hours as needed for wheezing Kateryna Seybold - Externa l Albuterol HFA 108 (90 Base) MCG/ACT IN AERS 17 00:00: 00 Yes [id number] 2{puff} Q6H Inhale 2 puffs into the lungs every 6 hours as needed for wheezing Kateryna Seybold Albuterol HFA 108 (90 Base) MCG/ACT IN AERS 11-26 00:00: 00 Yes [id number] 2{puff} Q.25D Inhale 2 puffs into the lungs every 6 hours as needed for wheezing Kateryna Seybold - Externa l Lidocaine Pain Relief 4 % apply externally Patch 2-0 1-05 00:00: 00 Yes USE DIRECTED 12 HOURS ON AND 12 HOURS OFF Kateryna Seybold - Externa l Lidocaine Pain Relief 4 % apply externally Patch 2-0 1-05 00:00: 00 Yes USE DIRECTED 12 HOURS ON AND 12 HOURS OFF Kateryna Seybold - Externa l Lidocaine Pain Relief 4 % apply externally Patch 2022-0 1-05 00:00: 00 Yes USE DIRECTED 12 HOURS ON AND 12 HOURS OFF Kateryna Seybold - Externa l Lidocaine Pain Relief 4 % apply externally Patch 2022-0 1-05 00:00: 00 Yes USE DIRECTED 12 HOURS ON AND 12 HOURS OFF Kateryna Seybold Lidocaine Pain Relief 4 % apply externally Patch 2022-0 1-05 00:00: 00 Yes USE DIRECTED 12 HOURS ON AND 12 HOURS OFF Kateryna Seybold - Externa l Lidocaine Pain Relief 4 % apply externally Patch 2022-0 1-05 00:00: 00 Yes USE DIRECTED 12 HOURS ON AND 12 HOURS OFF Kateryna Seybold - Externa l Lidocaine Pain Relief 4 % apply externally Patch 2022-0 1-05 00:00: 00 Yes USE DIRECTED 12 HOURS ON AND 12 HOURS OFF Kateryna Seybold - Externa l Lidocaine Pain Relief 4 % apply externally Patch 2022-0 1-05 00:00: 00 Yes USE DIRECTED 12 HOURS ON AND 12 HOURS OFF Kateryna Seybold - Externa l Lidocaine Pain Relief 4 % apply externally Patch 2022-0 1-05 00:00: 00 Yes USE DIRECTED 12 HOURS ON AND 12 HOURS OFF Kateryna Seybold - Externa l Lidocaine Pain Relief 4 % apply externally Patch 2-0 1-05 00:00: 00 Yes USE DIRECTED 12 HOURS ON AND 12 HOURS OFF Kateryna Seybold - Externa l Lidocaine Pain Relief 4 % apply externally Patch 2-0 1-05 00:00: 00 Yes Kateryna Seybold - Externa l Lidocaine Pain Relief 4 % apply externally Patch 2-0 1-05 00:00: 00 Yes Kateryna Seybold - Externa l Lidocaine Pain Relief 4 % apply externally Patch 2-0 1-05 00:00: 00 Yes Kateryna Seybold - Externa l Lidocaine Pain Relief 4 % apply externally Patch 2-0 1-05 00:00: 00 Yes Kateryna Seybold - Externa l Lidocaine Pain Relief 4 % apply externally Patch 2-0 1-05 00:00: 00 Yes Kateryna Seybold - Externa l Lidocaine Pain Relief 4 % apply externally Patch 2021-0 1-05 00:00: 00 Yes USE DIRECTED 12 HOURS ON AND 12 HOURS OFF Kateryna Gauthier - Externa l Metoprolol Tartrate 50 MG oral Tablet 2020-11 2-15 00:00: 00 11-26 00:00 :00 No 50mg Take 50 mg by mouth 2 times daily FOR 90 DAYS Kateryna Gauthier Doxepin HCl 50 MG oral Capsule 2020-11 00:00: 00 Yes Kateryna Gauthier - Externa l Doxepin HCl 50 MG oral Capsule 2020-11 00:00: 00 Yes Kateryna Gauthier - Externa l Doxepin HCl 50 MG oral Capsule 2020-11 00:00: 00 Yes Kateryna Gauthier Doxepin HCl 50 MG oral Capsule 2020-11 00:00: 00 Yes Kateryna Gauthier - Externa l Doxepin HCl 50 MG oral Capsule 2020-1127 00:00: 00 11-27 00:00 :00 No Kateryna Gauthier - Externa l Zolpidem Tartrate 12.5 MG oral Tab CR 2020-0 4-12 00:00: 00 Yes 12.5mg Take 12.5 mg by mouth at bedtime Kateryna munroe Zolpidem Tartrate 12.5 MG oral Tab CR 2020-0 4-12 00:00: 00 Yes 12.5mg Take 12.5 mg by mouth at bedtime Kateryna Jasso Externa ludwig Zolpidem Tartrate 12.5 MG oral Tab CR 2020-0 4-12 00:00: 00 Yes 12.5mg Take 12.5 mg by mouth at bedtime Kateryna Gauthier Zolpidem Tartrate 12.5 MG oral Tab CR 2020-0 4-12 00:00: 00 Yes 12.5mg Take 12.5 mg by mouth at bedtime Kateryna Jasso Externa ludwig Zolpidem Tartrate 12.5 MG oral Tab CR 0 4-12 00:00: 00 11-27 00:00 :00 No 12.5mg Take 12.5 mg by mouth at bedtime Kateryna munroe Lidocaine 5 % apply externally Ointment 0 4-02 00:00: 00 Yes APPLY EXTERNALLY TO LOWER BACK PAIN SENSITIVE AREA TWICE A DAY NEEDED Kateryna munroe Lidocaine 5 % apply externally Ointment 0 4-02 00:00: 00 Yes APPLY EXTERNALLY TO LOWER BACK PAIN SENSITIVE AREA TWICE A DAY NEEDED Kateryna munroe Lidocaine 5 % apply externally Ointment 0 4-02 00:00: 00 Yes APPLY EXTERNALLY TO LOWER BACK PAIN SENSITIVE AREA TWICE A DAY NEEDED Kateryna Gauthier Lidocaine 5 % apply externally Ointment 0 4-02 00:00: 00 Yes APPLY EXTERNALLY TO LOWER BACK PAIN SENSITIVE AREA TWICE A DAY NEEDED Kateryna munroe Lidocaine 5 % apply externally Ointment 0 4-02 00:00: 00 11-27 00:00 :00 No APPLY EXTERNALLY TO LOWER BACK PAIN SENSITIVE AREA TWICE A DAY NEEDED Kateryna munroe HYDROcodone -Acetaminop hen (NORCO) 5-325 MG oral Tablet 2020-0 3-24 00:00: 00 Yes TAKE 1 TABLET BY MOUTH TWICE DAILY NEEDED FOR 15 DAYS Kateryna munroe HYDROcodone -Acetaminop hen (NORCO) 5-325 MG oral Tablet 24 00:00: 00 Yes TAKE 1 TABLET BY MOUTH TWICE DAILY NEEDED FOR 15 DAYS Kateryna munroe HYDROcodone -Acetaminop hen (NORCO) 5-325 MG oral Tablet -24 00:00: 00 Yes TAKE 1 TABLET BY MOUTH TWICE DAILY NEEDED FOR 15 DAYS Kateryna Gauthier HYDROcodone -Acetaminop hen (NORCO) 5-325 MG oral Tablet 3-24 00:00: 00 Yes TAKE 1 TABLET BY MOUTH TWICE DAILY NEEDED FOR 15 DAYS Kateryna munroe HYDROcodone -Acetaminop hen (NORCO) 5-325 MG oral Tablet 24 00:00: 00 11-27 00:00 :00 No TAKE 1 TABLET BY MOUTH TWICE DAILY NEEDED FOR 15 DAYS Kateryna munroe Simvastatin 40 MG oral Tablet 3- 00:00: 00 Yes every 24 hours Kateryna Gauthier Metoprolol Tartrate 50 MG oral Tablet 2- 00:00: 00 Yes 1{tbl} Take 1 tablet by mouth Kateryna Gauthier Enalapril Maleate 20 MG oral Tablet 2-19 00:00: 00 Yes 1{tbl} Take 1 tablet by mouth Kateryna Gauthier traZODone HCl 50 MG traZODone HCl 50 MG No 1{table t_at_be dtime_a s_neede d} QD traZODone HCl 50 MG Clotrimazol e-Betametha sone 1-0.05 % Clotrimazol e-Betametha sone 1-0.05 % No BID Clotrimazo le-Betamet hasone 1-0.05 % Diclofenac Diclofenac No Diclofenac Gabapentin 300 MG Gabapentin 300 MG No 1{capsu le} BID Gabapentin 300 MG Zolpidem Tartrate ER 12.5 MG Zolpidem Tartrate ER 12.5 MG No 1{table t_at_be dtime_a s_neede d} QD Zolpidem Tartrate ER 12.5 MG Doxepin HCl 50 MG Doxepin HCl 50 MG No 1{capsu le_at_b edtime} QD Doxepin HCl 50 MG Sertraline HCl 50 MG Sertraline HCl 50 MG No 1{table t} QD Sertraline HCl 50 MG Doxepin HCl 50 MG Doxepin HCl 50 MG No 1{capsu le_at_b edtime} QD Doxepin HCl 50 MG Mirtazapine 7.5 MG Mirtazapine 7.5 MG No 1{table t_at_be dtime} QD Mirtazapin e 7.5 MG Enalapril Maleate 20 MG Enalapril Maleate 20 MG No Enalapril Maleate 20 MG Metoprolol Tartrate 50 MG Metoprolol Tartrate 50 MG No 1{table t} BID Metoprolol Tartrate 50 MG Pantoprazol e Sodium 40 MG Pantoprazol e Sodium 40 MG No 1{table t} QD Pantoprazo le Sodium 40 MG glipiZIDE ER 5 MG glipiZIDE ER 5 MG No 1{table t_with_ food} QD glipiZIDE ER 5 MG Aspir-Low 81 MG Aspir-Low 81 MG No 1{table t} QD Aspir-Low 81 MG buPROPion HCl ER (XL) buPROPion HCl ER (XL) No buPROPion HCl ER (XL) HYDROcodone -Acetaminop hen 10-325 MG HYDROcodone -Acetaminop hen 10-325 MG No HYDROcodon e-Acetamin ophen 10-325 MG ALPRAZolam 0.5 MG ALPRAZolam 0.5 MG No ALPRAZolam 0.5 MG Albuterol Albuterol No Albuterol Wellbutrin XL 150 MG Wellbutrin XL 150 MG No 1{table t_in_th e_morni ng} QD Wellbutrin XL 150 MG tiZANidine HCl 4 MG tiZANidine HCl 4 MG No tiZANidine HCl 4 MG metFORMIN HCl 1000 MG metFORMIN HCl 1000 MG No 1{table t_with_ a_meal} BID metFORMIN HCl 1000 MG Doxepin HCl 50 MG Doxepin HCl 50 MG No 1{capsu le_at_b edtime} QD Doxepin HCl 50 MG glipiZIDE ER 5 MG glipiZIDE ER 5 MG No 1{table t_with_ food} QD glipiZIDE ER 5 MG HYDROcodone -Acetaminop hen 10-325 MG HYDROcodone -Acetaminop hen 10-325 MG No HYDROcodon e-Acetamin ophen 10-325 MG Zolpidem Tartrate ER 12.5 MG Zolpidem Tartrate ER 12.5 MG No 1{table t_at_be dtime_a s_neede d} QD Zolpidem Tartrate ER 12.5 MG Doxepin HCl 50 MG Doxepin HCl 50 MG No 1{capsu le_at_b edtime} QD Doxepin HCl 50 MG Sertraline HCl 50 MG Sertraline HCl 50 MG No 1{table t} QD Sertraline HCl 50 MG Aspir-Low 81 MG Aspir-Low 81 MG No 1{table t} QD Aspir-Low 81 MG Gabapentin 300 MG Gabapentin 300 MG No 1{capsu le} BID Gabapentin 300 MG Enalapril Maleate 20 MG Enalapril Maleate 20 MG No Enalapril Maleate 20 MG metFORMIN HCl 1000 MG metFORMIN HCl 1000 MG No 1{table t_with_ a_meal} BID metFORMIN HCl 1000 MG Metoprolol Tartrate 50 MG Metoprolol Tartrate 50 MG No 1{table t} BID Metoprolol Tartrate 50 MG Pantoprazol e Sodium 40 MG Pantoprazol e Sodium 40 MG No 1{table t} QD Pantoprazo le Sodium 40 MG tiZANidine HCl 4 MG tiZANidine HCl 4 MG No tiZANidine HCl 4 MG ALPRAZolam 0.5 MG ALPRAZolam 0.5 MG No ALPRAZolam 0.5 MG Diclofenac Diclofenac No Diclofenac Clotrimazol e-Betametha sone 1-0.05 % Clotrimazol e-Betametha sone 1-0.05 % No BID Clotrimazo le-Betamet hasone 1-0.05 % traZODone HCl 50 MG traZODone HCl 50 MG No 1{table t_at_be dtime_a s_neede d} QD traZODone HCl 50 MG Albuterol Albuterol No Albuterol Wellbutrin XL 150 MG Wellbutrin XL 150 MG No 1{table t_in_th e_morni ng} QD Wellbutrin XL 150 MG Mirtazapine 7.5 MG Mirtazapine 7.5 MG No 1{table t_at_be dtime} QD Mirtazapin e 7.5 MG buPROPion HCl ER (XL) buPROPion HCl ER (XL) No buPROPion HCl ER (XL) Doxepin HCl 50 MG Doxepin HCl 50 MG No 1{capsu le_at_b edtime} QD Doxepin HCl 50 MG glipiZIDE ER 5 MG glipiZIDE ER 5 MG No 1{table t_with_ food} QD glipiZIDE ER 5 MG HYDROcodone -Acetaminop hen 10-325 MG HYDROcodone -Acetaminop hen 10-325 MG No HYDROcodon e-Acetamin ophen 10-325 MG Zolpidem Tartrate ER 12.5 MG Zolpidem Tartrate ER 12.5 MG No 1{table t_at_be dtime_a s_neede d} QD Zolpidem Tartrate ER 12.5 MG Doxepin HCl 50 MG Doxepin HCl 50 MG No 1{capsu le_at_b edtime} QD Doxepin HCl 50 MG Sertraline HCl 50 MG Sertraline HCl 50 MG No 1{table t} QD Sertraline HCl 50 MG Aspir-Low 81 MG Aspir-Low 81 MG No 1{table t} QD Aspir-Low 81 MG Gabapentin 300 MG Gabapentin 300 MG No 1{capsu le} BID Gabapentin 300 MG Enalapril Maleate 20 MG Enalapril Maleate 20 MG No Enalapril Maleate 20 MG metFORMIN HCl 1000 MG metFORMIN HCl 1000 MG No 1{table t_with_ a_meal} BID metFORMIN HCl 1000 MG Metoprolol Tartrate 50 MG Metoprolol Tartrate 50 MG No 1{table t} BID Metoprolol Tartrate 50 MG Pantoprazol e Sodium 40 MG Pantoprazol e Sodium 40 MG No 1{table t} QD Pantoprazo le Sodium 40 MG tiZANidine HCl 4 MG tiZANidine HCl 4 MG No tiZANidine HCl 4 MG ALPRAZolam 0.5 MG ALPRAZolam 0.5 MG No ALPRAZolam 0.5 MG Diclofenac Diclofenac No Diclofenac Clotrimazol e-Betametha sone 1-0.05 % Clotrimazol e-Betametha sone 1-0.05 % No BID Clotrimazo le-Betamet hasone 1-0.05 % traZODone HCl 50 MG traZODone HCl 50 MG No 1{table t_at_be dtime_a s_neede d} QD traZODone HCl 50 MG Albuterol Albuterol No Albuterol Wellbutrin XL 150 MG Wellbutrin XL 150 MG No 1{table t_in_th e_morni ng} QD Wellbutrin XL 150 MG Mirtazapine 7.5 MG Mirtazapine 7.5 MG No 1{table t_at_be dtime} QD Mirtazapin e 7.5 MG buPROPion HCl ER (XL) buPROPion HCl ER (XL) No buPROPion HCl ER (XL) Doxepin HCl 50 MG Doxepin HCl 50 MG No 1{capsu le_at_b edtime} QD Doxepin HCl 50 MG glipiZIDE ER 5 MG glipiZIDE ER 5 MG No 1{table t_with_ food} QD glipiZIDE ER 5 MG HYDROcodone -Acetaminop hen 10-325 MG HYDROcodone -Acetaminop hen 10-325 MG No HYDROcodon e-Acetamin ophen 10-325 MG Zolpidem Tartrate ER 12.5 MG Zolpidem Tartrate ER 12.5 MG No 1{table t_at_be dtime_a s_neede d} QD Zolpidem Tartrate ER 12.5 MG Doxepin HCl 50 MG Doxepin HCl 50 MG No 1{capsu le_at_b edtime} QD Doxepin HCl 50 MG Sertraline HCl 50 MG Sertraline HCl 50 MG No 1{table t} QD Sertraline HCl 50 MG Aspir-Low 81 MG Aspir-Low 81 MG No 1{table t} QD Aspir-Low 81 MG Gabapentin 300 MG Gabapentin 300 MG No 1{capsu le} BID Gabapentin 300 MG Enalapril Maleate 20 MG Enalapril Maleate 20 MG No Enalapril Maleate 20 MG metFORMIN HCl 1000 MG metFORMIN HCl 1000 MG No 1{table t_with_ a_meal} BID metFORMIN HCl 1000 MG Metoprolol Tartrate 50 MG Metoprolol Tartrate 50 MG No 1{table t} BID Metoprolol Tartrate 50 MG Pantoprazol e Sodium 40 MG Pantoprazol e Sodium 40 MG No 1{table t} QD Pantoprazo le Sodium 40 MG tiZANidine HCl 4 MG tiZANidine HCl 4 MG No tiZANidine HCl 4 MG ALPRAZolam 0.5 MG ALPRAZolam 0.5 MG No ALPRAZolam 0.5 MG Diclofenac Diclofenac No Diclofenac Clotrimazol e-Betametha sone 1-0.05 % Clotrimazol e-Betametha sone 1-0.05 % No BID Clotrimazo le-Betamet hasone 1-0.05 % traZODone HCl 50 MG traZODone HCl 50 MG No 1{table t_at_be dtime_a s_neede d} QD traZODone HCl 50 MG Albuterol Albuterol No Albuterol Wellbutrin XL 150 MG Wellbutrin XL 150 MG No 1{table t_in_th e_morni ng} QD Wellbutrin XL 150 MG Mirtazapine 7.5 MG Mirtazapine 7.5 MG No 1{table t_at_be dtime} QD Mirtazapin e 7.5 MG buPROPion HCl ER (XL) buPROPion HCl ER (XL) No buPROPion HCl ER (XL) Doxepin HCl 50 MG Doxepin HCl 50 MG No 1{capsu le_at_b edtime} QD Doxepin HCl 50 MG glipiZIDE ER 5 MG glipiZIDE ER 5 MG No 1{table t_with_ food} QD glipiZIDE ER 5 MG HYDROcodone -Acetaminop hen 10-325 MG HYDROcodone -Acetaminop hen 10-325 MG No HYDROcodon e-Acetamin ophen 10-325 MG Zolpidem Tartrate ER 12.5 MG Zolpidem Tartrate ER 12.5 MG No 1{table t_at_be dtime_a s_neede d} QD Zolpidem Tartrate ER 12.5 MG Doxepin HCl 50 MG Doxepin HCl 50 MG No 1{capsu le_at_b edtime} QD Doxepin HCl 50 MG Sertraline HCl 50 MG Sertraline HCl 50 MG No 1{table t} QD Sertraline HCl 50 MG Aspir-Low 81 MG Aspir-Low 81 MG No 1{table t} QD Aspir-Low 81 MG Gabapentin 300 MG Gabapentin 300 MG No 1{capsu le} BID Gabapentin 300 MG Enalapril Maleate 20 MG Enalapril Maleate 20 MG No Enalapril Maleate 20 MG metFORMIN HCl 1000 MG metFORMIN HCl 1000 MG No 1{table t_with_ a_meal} BID metFORMIN HCl 1000 MG Metoprolol Tartrate 50 MG Metoprolol Tartrate 50 MG No 1{table t} BID Metoprolol Tartrate 50 MG Pantoprazol e Sodium 40 MG Pantoprazol e Sodium 40 MG No 1{table t} QD Pantoprazo le Sodium 40 MG tiZANidine HCl 4 MG tiZANidine HCl 4 MG No tiZANidine HCl 4 MG ALPRAZolam 0.5 MG ALPRAZolam 0.5 MG No ALPRAZolam 0.5 MG Diclofenac Diclofenac No Diclofenac Clotrimazol e-Betametha sone 1-0.05 % Clotrimazol e-Betametha sone 1-0.05 % No BID Clotrimazo le-Betamet hasone 1-0.05 % traZODone HCl 50 MG traZODone HCl 50 MG No 1{table t_at_be dtime_a s_neede d} QD traZODone HCl 50 MG Albuterol Albuterol No Albuterol Wellbutrin XL 150 MG Wellbutrin XL 150 MG No 1{table t_in_th e_morni ng} QD Wellbutrin XL 150 MG Mirtazapine 7.5 MG Mirtazapine 7.5 MG No 1{table t_at_be dtime} QD Mirtazapin e 7.5 MG buPROPion HCl ER (XL) buPROPion HCl ER (XL) No buPROPion HCl ER (XL) Doxepin HCl 50 MG Doxepin HCl 50 MG No 1{capsu le_at_b edtime} QD Doxepin HCl 50 MG glipiZIDE ER 5 MG glipiZIDE ER 5 MG No 1{table t_with_ food} QD glipiZIDE ER 5 MG HYDROcodone -Acetaminop hen 10-325 MG HYDROcodone -Acetaminop hen 10-325 MG No HYDROcodon e-Acetamin ophen 10-325 MG Zolpidem Tartrate ER 12.5 MG Zolpidem Tartrate ER 12.5 MG No 1{table t_at_be dtime_a s_neede d} QD Zolpidem Tartrate ER 12.5 MG Doxepin HCl 50 MG Doxepin HCl 50 MG No 1{capsu le_at_b edtime} QD Doxepin HCl 50 MG Sertraline HCl 50 MG Sertraline HCl 50 MG No 1{table t} QD Sertraline HCl 50 MG Aspir-Low 81 MG Aspir-Low 81 MG No 1{table t} QD Aspir-Low 81 MG Gabapentin 300 MG Gabapentin 300 MG No 1{capsu le} BID Gabapentin 300 MG Enalapril Maleate 20 MG Enalapril Maleate 20 MG No Enalapril Maleate 20 MG metFORMIN HCl 1000 MG metFORMIN HCl 1000 MG No 1{table t_with_ a_meal} BID metFORMIN HCl 1000 MG Metoprolol Tartrate 50 MG Metoprolol Tartrate 50 MG No 1{table t} BID Metoprolol Tartrate 50 MG Pantoprazol e Sodium 40 MG Pantoprazol e Sodium 40 MG No 1{table t} QD Pantoprazo le Sodium 40 MG tiZANidine HCl 4 MG tiZANidine HCl 4 MG No tiZANidine HCl 4 MG ALPRAZolam 0.5 MG ALPRAZolam 0.5 MG No ALPRAZolam 0.5 MG Diclofenac Diclofenac No Diclofenac Clotrimazol e-Betametha sone 1-0.05 % Clotrimazol e-Betametha sone 1-0.05 % No BID Clotrimazo le-Betamet hasone 1-0.05 % traZODone HCl 50 MG traZODone HCl 50 MG No 1{table t_at_be dtime_a s_neede d} QD traZODone HCl 50 MG Albuterol Albuterol No Albuterol Wellbutrin XL 150 MG Wellbutrin XL 150 MG No 1{table t_in_th e_morni ng} QD Wellbutrin XL 150 MG Mirtazapine 7.5 MG Mirtazapine 7.5 MG No 1{table t_at_be dtime} QD Mirtazapin e 7.5 MG buPROPion HCl ER (XL) buPROPion HCl ER (XL) No buPROPion HCl ER (XL) Doxepin HCl 50 MG Doxepin HCl 50 MG No 1{capsu le_at_b edtime} QD Doxepin HCl 50 MG glipiZIDE ER 5 MG glipiZIDE ER 5 MG No 1{table t_with_ food} QD glipiZIDE ER 5 MG HYDROcodone -Acetaminop hen 10-325 MG HYDROcodone -Acetaminop hen 10-325 MG No HYDROcodon e-Acetamin ophen 10-325 MG Zolpidem Tartrate ER 12.5 MG Zolpidem Tartrate ER 12.5 MG No 1{table t_at_be dtime_a s_neede d} QD Zolpidem Tartrate ER 12.5 MG Doxepin HCl 50 MG Doxepin HCl 50 MG No 1{capsu le_at_b edtime} QD Doxepin HCl 50 MG Sertraline HCl 50 MG Sertraline HCl 50 MG No 1{table t} QD Sertraline HCl 50 MG Aspir-Low 81 MG Aspir-Low 81 MG No 1{table t} QD Aspir-Low 81 MG Gabapentin 300 MG Gabapentin 300 MG No 1{capsu le} BID Gabapentin 300 MG Enalapril Maleate 20 MG Enalapril Maleate 20 MG No Enalapril Maleate 20 MG metFORMIN HCl 1000 MG metFORMIN HCl 1000 MG No 1{table t_with_ a_meal} BID metFORMIN HCl 1000 MG Metoprolol Tartrate 50 MG Metoprolol Tartrate 50 MG No 1{table t} BID Metoprolol Tartrate 50 MG Pantoprazol e Sodium 40 MG Pantoprazol e Sodium 40 MG No 1{table t} QD Pantoprazo le Sodium 40 MG tiZANidine HCl 4 MG tiZANidine HCl 4 MG No tiZANidine HCl 4 MG ALPRAZolam 0.5 MG ALPRAZolam 0.5 MG No ALPRAZolam 0.5 MG Diclofenac Diclofenac No Diclofenac Clotrimazol e-Betametha sone 1-0.05 % Clotrimazol e-Betametha sone 1-0.05 % No BID Clotrimazo le-Betamet hasone 1-0.05 % traZODone HCl 50 MG traZODone HCl 50 MG No 1{table t_at_be dtime_a s_neede d} QD traZODone HCl 50 MG Albuterol Albuterol No Albuterol Wellbutrin XL 150 MG Wellbutrin XL 150 MG No 1{table t_in_th e_morni ng} QD Wellbutrin XL 150 MG Mirtazapine 7.5 MG Mirtazapine 7.5 MG No 1{table t_at_be dtime} QD Mirtazapin e 7.5 MG buPROPion HCl ER (XL) buPROPion HCl ER (XL) No buPROPion HCl ER (XL) Doxepin HCl 50 MG Doxepin HCl 50 MG No 1{capsu le_at_b edtime} QD Doxepin HCl 50 MG glipiZIDE ER 5 MG glipiZIDE ER 5 MG No 1{table t_with_ food} QD glipiZIDE ER 5 MG HYDROcodone -Acetaminop hen 10-325 MG HYDROcodone -Acetaminop hen 10-325 MG No HYDROcodon e-Acetamin ophen 10-325 MG Zolpidem Tartrate ER 12.5 MG Zolpidem Tartrate ER 12.5 MG No 1{table t_at_be dtime_a s_neede d} QD Zolpidem Tartrate ER 12.5 MG Doxepin HCl 50 MG Doxepin HCl 50 MG No 1{capsu le_at_b edtime} QD Doxepin HCl 50 MG Sertraline HCl 50 MG Sertraline HCl 50 MG No 1{table t} QD Sertraline HCl 50 MG Aspir-Low 81 MG Aspir-Low 81 MG No 1{table t} QD Aspir-Low 81 MG Gabapentin 300 MG Gabapentin 300 MG No 1{capsu le} BID Gabapentin 300 MG Enalapril Maleate 20 MG Enalapril Maleate 20 MG No Enalapril Maleate 20 MG metFORMIN HCl 1000 MG metFORMIN HCl 1000 MG No 1{table t_with_ a_meal} BID metFORMIN HCl 1000 MG Metoprolol Tartrate 50 MG Metoprolol Tartrate 50 MG No 1{table t} BID Metoprolol Tartrate 50 MG Pantoprazol e Sodium 40 MG Pantoprazol e Sodium 40 MG No 1{table t} QD Pantoprazo le Sodium 40 MG tiZANidine HCl 4 MG tiZANidine HCl 4 MG No tiZANidine HCl 4 MG ALPRAZolam 0.5 MG ALPRAZolam 0.5 MG No ALPRAZolam 0.5 MG Diclofenac Diclofenac No Diclofenac Clotrimazol e-Betametha sone 1-0.05 % Clotrimazol e-Betametha sone 1-0.05 % No BID Clotrimazo le-Betamet hasone 1-0.05 % traZODone HCl 50 MG traZODone HCl 50 MG No 1{table t_at_be dtime_a s_neede d} QD traZODone HCl 50 MG Albuterol Albuterol No Albuterol Wellbutrin XL 150 MG Wellbutrin XL 150 MG No 1{table t_in_th e_morni ng} QD Wellbutrin XL 150 MG Mirtazapine 7.5 MG Mirtazapine 7.5 MG No 1{table t_at_be dtime} QD Mirtazapin e 7.5 MG buPROPion HCl ER (XL) buPROPion HCl ER (XL) No buPROPion HCl ER (XL) Doxepin HCl 50 MG Doxepin HCl 50 MG No 1{capsu le_at_b edtime} QD Doxepin HCl 50 MG glipiZIDE ER 5 MG glipiZIDE ER 5 MG No 1{table t_with_ food} QD glipiZIDE ER 5 MG HYDROcodone -Acetaminop hen 10-325 MG HYDROcodone -Acetaminop hen 10-325 MG No HYDROcodon e-Acetamin ophen 10-325 MG Zolpidem Tartrate ER 12.5 MG Zolpidem Tartrate ER 12.5 MG No 1{table t_at_be dtime_a s_neede d} QD Zolpidem Tartrate ER 12.5 MG Doxepin HCl 50 MG Doxepin HCl 50 MG No 1{capsu le_at_b edtime} QD Doxepin HCl 50 MG Sertraline HCl 50 MG Sertraline HCl 50 MG No 1{table t} QD Sertraline HCl 50 MG Aspir-Low 81 MG Aspir-Low 81 MG No 1{table t} QD Aspir-Low 81 MG Gabapentin 300 MG Gabapentin 300 MG No 1{capsu le} BID Gabapentin 300 MG Enalapril Maleate 20 MG Enalapril Maleate 20 MG No Enalapril Maleate 20 MG metFORMIN HCl 1000 MG metFORMIN HCl 1000 MG No 1{table t_with_ a_meal} BID metFORMIN HCl 1000 MG Metoprolol Tartrate 50 MG Metoprolol Tartrate 50 MG No 1{table t} BID Metoprolol Tartrate 50 MG Pantoprazol e Sodium 40 MG Pantoprazol e Sodium 40 MG No 1{table t} QD Pantoprazo le Sodium 40 MG tiZANidine HCl 4 MG tiZANidine HCl 4 MG No tiZANidine HCl 4 MG ALPRAZolam 0.5 MG ALPRAZolam 0.5 MG No ALPRAZolam 0.5 MG Diclofenac Diclofenac No Diclofenac Clotrimazol e-Betametha sone 1-0.05 % Clotrimazol e-Betametha sone 1-0.05 % No BID Clotrimazo le-Betamet hasone 1-0.05 % traZODone HCl 50 MG traZODone HCl 50 MG No 1{table t_at_be dtime_a s_neede d} QD traZODone HCl 50 MG Albuterol Albuterol No Albuterol Wellbutrin XL 150 MG Wellbutrin XL 150 MG No 1{table t_in_th e_morni ng} QD Wellbutrin XL 150 MG Mirtazapine 7.5 MG Mirtazapine 7.5 MG No 1{table t_at_be dtime} QD Mirtazapin e 7.5 MG buPROPion HCl ER (XL) buPROPion HCl ER (XL) No buPROPion HCl ER (XL) Doxepin HCl 50 MG Doxepin HCl 50 MG No 1{capsu le_at_b edtime} QD Doxepin HCl 50 MG glipiZIDE ER 5 MG glipiZIDE ER 5 MG No 1{table t_with_ food} QD glipiZIDE ER 5 MG HYDROcodone -Acetaminop hen 10-325 MG HYDROcodone -Acetaminop hen 10-325 MG No HYDROcodon e-Acetamin ophen 10-325 MG Zolpidem Tartrate ER 12.5 MG Zolpidem Tartrate ER 12.5 MG No 1{table t_at_be dtime_a s_neede d} QD Zolpidem Tartrate ER 12.5 MG Doxepin HCl 50 MG Doxepin HCl 50 MG No 1{capsu le_at_b edtime} QD Doxepin HCl 50 MG Sertraline HCl 50 MG Sertraline HCl 50 MG No 1{table t} QD Sertraline HCl 50 MG Aspir-Low 81 MG Aspir-Low 81 MG No 1{table t} QD Aspir-Low 81 MG Gabapentin 300 MG Gabapentin 300 MG No 1{capsu le} BID Gabapentin 300 MG Enalapril Maleate 20 MG Enalapril Maleate 20 MG No Enalapril Maleate 20 MG metFORMIN HCl 1000 MG metFORMIN HCl 1000 MG No 1{table t_with_ a_meal} BID metFORMIN HCl 1000 MG Metoprolol Tartrate 50 MG Metoprolol Tartrate 50 MG No 1{table t} BID Metoprolol Tartrate 50 MG Pantoprazol e Sodium 40 MG Pantoprazol e Sodium 40 MG No 1{table t} QD Pantoprazo le Sodium 40 MG tiZANidine HCl 4 MG tiZANidine HCl 4 MG No tiZANidine HCl 4 MG ALPRAZolam 0.5 MG ALPRAZolam 0.5 MG No ALPRAZolam 0.5 MG Diclofenac Diclofenac No Diclofenac Clotrimazol e-Betametha sone 1-0.05 % Clotrimazol e-Betametha sone 1-0.05 % No BID Clotrimazo le-Betamet hasone 1-0.05 % traZODone HCl 50 MG traZODone HCl 50 MG No 1{table t_at_be dtime_a s_neede d} QD traZODone HCl 50 MG Albuterol Albuterol No Albuterol Wellbutrin XL 150 MG Wellbutrin XL 150 MG No 1{table t_in_th e_morni ng} QD Wellbutrin XL 150 MG Mirtazapine 7.5 MG Mirtazapine 7.5 MG No 1{table t_at_be dtime} QD Mirtazapin e 7.5 MG buPROPion HCl ER (XL) buPROPion HCl ER (XL) No buPROPion HCl ER (XL) buPROPion HCl ER (XL) buPROPion HCl ER (XL) No buPROPion HCl ER (XL) Escitalopra m Oxalate Escitalopra m Oxalate No Escitalopr am Oxalate Zolpidem Tartrate ER 12.5 MG Zolpidem Tartrate ER 12.5 MG No 1{table t_at_be dtime_a s_neede d} QD Zolpidem Tartrate ER 12.5 MG glipiZIDE ER 5 MG glipiZIDE ER 5 MG No 1{table t_with_ food} QD glipiZIDE ER 5 MG HYDROcodone -Acetaminop hen 10-325 MG HYDROcodone -Acetaminop hen 10-325 MG No HYDROcodon e-Acetamin ophen 10-325 MG traZODone HCl 50 MG traZODone HCl 50 MG No 1{table t_at_be dtime_a s_neede d} QD traZODone HCl 50 MG oxyCODONE HCl oxyCODONE HCl No oxyCODONE HCl Aspir-Low 81 MG Aspir-Low 81 MG No 1{table t} QD Aspir-Low 81 MG metFORMIN HCl 1000 MG metFORMIN HCl 1000 MG No 1{table t_with_ a_meal} BID metFORMIN HCl 1000 MG ALPRAZolam 0.5 MG ALPRAZolam 0.5 MG No ALPRAZolam 0.5 MG Enalapril Maleate 20 MG Enalapril Maleate 20 MG No Enalapril Maleate 20 MG Pantoprazol e Sodium 40 MG Pantoprazol e Sodium 40 MG No 1{table t} QD Pantoprazo le Sodium 40 MG Albuterol Albuterol No Albuterol Metoprolol Tartrate 50 MG Metoprolol Tartrate 50 MG No 1{table t} BID Metoprolol Tartrate 50 MG Doxepin HCl 50 MG Doxepin HCl 50 MG No 1{capsu le_at_b edtime} QD Doxepin HCl 50 MG Doxepin HCl 50 MG Doxepin HCl 50 MG No 1{capsu le_at_b edtime} QD Doxepin HCl 50 MG Wellbutrin XL 150 MG Wellbutrin XL 150 MG No 1{table t_in_th e_morni ng} QD Wellbutrin XL 150 MG Gabapentin 300 MG Gabapentin 300 MG No 1{capsu le} BID Gabapentin 300 MG Diclofenac Diclofenac No Diclofenac Mirtazapine 7.5 MG Mirtazapine 7.5 MG No 1{table t_at_be dtime} QD Mirtazapin e 7.5 MG tiZANidine HCl 4 MG tiZANidine HCl 4 MG No tiZANidine HCl 4 MG Sertraline HCl 50 MG Sertraline HCl 50 MG No 1{table t} QD Sertraline HCl 50 MG Clotrimazol e-Betametha sone 1-0.05 % Clotrimazol e-Betametha sone 1-0.05 % No BID Clotrimazo le-Betamet hasone 1-0.05 % Immunizations Ordered Immunization Name Filled Immunization Name Date Status Comments Source Influenza Virus Vaccine, Quad, Egg Free 2022-09-04 00:00:00 Completed Kateryna Seybold - External Influenza Virus Vaccine, Quad, Egg Free 2022-09-04 00:00:00 Completed Kateryna Seybold - External Influenza Virus Vaccine, Quad, Egg Free 2022-09-04 00:00:00 Completed Kateryna Seybold - External Influenza Virus Vaccine, Quad, Egg Free 2022-09-04 00:00:00 Completed Kateryna Seybold - External Influenza Virus Vaccine, Quad, Egg Free 2022-09-04 00:00:00 Completed Kateryna Seybold - External Influenza Virus Vaccine, Quad, Egg Free 2022-09-04 00:00:00 Completed Kateryna Seybold - External Influenza Virus Vaccine, Quad, Egg Free 2022-09-04 00:00:00 Completed Kateryna Seybold - External Influenza Virus Vaccine, Quad, Egg Free 2022-09-04 00:00:00 Completed Kateryna Seybold - External Influenza Virus Vaccine, Quad, Egg Free 2022-09-04 00:00:00 Completed Kateryna Seybold - External Influenza Virus Vaccine, Quad, Egg Free 2022-09-04 00:00:00 Completed Kateryna Seybold - External Influenza Virus Vaccine, Quad, Egg Free 2022-09-04 00:00:00 Completed Kateryna Seybold - External Covid-19 Vaccine Moderna (Spikevax), Mrna-lnp, Tito Protein, Pf 2021-11-08 00:00:00 Completed Kateryna Seybold - External Covid-19 Vaccine Moderna (Spikevax), Mrna-lnp, Tito Protein, Pf 2021-11-08 00:00:00 Completed Kateryna Seybold - External Covid-19 Vaccine Moderna (Spikevax), Mrna-lnp, Tito Protein, Pf 2021-11-08 00:00:00 Completed Kateryna Seybold - External Covid-19 Vaccine Moderna (Spikevax), Mrna-lnp, Tito Protein, Pf 2021-11-08 00:00:00 Completed Kateryna Seybold - External Covid-19 Vaccine Moderna (Spikevax), Mrna-lnp, Tito Protein, Pf 2021-11-08 00:00:00 Completed Kateryna Seybold - External Covid-19 Vaccine Moderna (Spikevax), Mrna-lnp, Tito Protein, Pf 2021-11-08 00:00:00 Completed Kateryna Seybold - External Covid-19 Vaccine Moderna (Spikevax), Mrna-lnp, Tito Protein, Pf 2021-11-08 00:00:00 Completed Kateryna Seybold - External Covid-19 Vaccine Moderna (Spikevax), Mrna-lnp, Tito Protein, Pf 2021-11-08 00:00:00 Completed Kateryna Seybold - External Covid-19 Vaccine Moderna (Spikevax), Mrna-lnp, Tito Protein, Pf 2021-11-08 00:00:00 Completed Kateryna Seybold - External Covid-19 Vaccine Moderna (Spikevax), Mrna-lnp, Tito Protein, Pf 2021-11-08 00:00:00 Completed Kateryna Seybold - External Covid-19 Vaccine Moderna (Spikevax), Mrna-lnp, Tito Protein, Pf 2021-11-08 00:00:00 Completed Kateryna Seybold - External Covid-19 Vaccine Moderna (Spikevax), Mrna-lnp, Tito Protein, Pf 2021-10-19 00:00:00 Completed Kateryna Seybold - External Covid-19 Vaccine Moderna (Spikevax), Mrna-lnp, Tito Protein, Pf 2021-10-19 00:00:00 Completed Kateryna Seybold - External Covid-19 Vaccine Moderna (Spikevax), Mrna-lnp, Tito Protein, Pf 2021-10-19 00:00:00 Completed Kateryna Seybold - External Covid-19 Vaccine Moderna (Spikevax), Mrna-lnp, Tito Protein, Pf 2021-10-19 00:00:00 Completed Kateryna Seybold - External Covid-19 Vaccine Moderna (Spikevax), Mrna-lnp, Tito Protein, Pf 2021-10-19 00:00:00 Completed Kateryna Seybold - External Covid-19 Vaccine Moderna (Spikevax), Mrna-lnp, Tito Protein, Pf 2021-10-19 00:00:00 Completed Kateryna Seybold - External Covid-19 Vaccine Moderna (Spikevax), Mrna-lnp, Tito Protein, Pf 2021-10-19 00:00:00 Completed Kateryna Seybold - External Covid-19 Vaccine Moderna (Spikevax), Mrna-lnp, Tito Protein, Pf 2021-10-19 00:00:00 Completed Kateryna Seybold - External Covid-19 Vaccine Moderna (Spikevax), Mrna-lnp, Tito Protein, Pf 2021-10-19 00:00:00 Completed Kateryna Seybold - External Influenza Virus Vaccine, Unspecified Formulation 2021-07-20 00:00:00 Completed Kateryna Seybold - External Influenza Virus Vaccine, Unspecified Formulation 2021-07-20 00:00:00 Completed Kateryna Seybold - External Influenza Virus Vaccine, Unspecified Formulation 2021-07-20 00:00:00 Completed Kateryna Seybold - External Influenza Virus Vaccine, Unspecified Formulation 2021-07-20 00:00:00 Completed Kateryna Seybold - External Influenza Virus Vaccine, Unspecified Formulation 2021-07-20 00:00:00 Completed Kateryna Seybold - External Influenza Virus Vaccine, Unspecified Formulation 2021-07-20 00:00:00 Completed Kateryna Seybold - External Influenza Virus Vaccine, Unspecified Formulation 2021-07-20 00:00:00 Completed Kateryna Seybold - External Influenza Virus Vaccine, Unspecified Formulation 2021-07-20 00:00:00 Completed Kateryna Seybold - External Influenza Virus Vaccine, Unspecified Formulation 2021-07-20 00:00:00 Completed Kateryna Seybold - External Moderna COVID-19 Vaccine Moderna COVID-19 Vaccine 2021-03-09 11:49:00 Completed [facility] Covid-19 Vaccine Moderna (Spikevax), Mrna-lnp, Tito Protein, Pf 2021-03-09 00:00:00 Completed Kateryna Seybold - External Covid-19 Vaccine Moderna (Spikevax), Mrna-lnp, Tito Protein, Pf 2021-03-09 00:00:00 Completed Kateryna Seybold - External Covid-19 Vaccine Moderna (Spikevax), Mrna-lnp, Tito Protein, Pf 2021-03-09 00:00:00 Completed Kateryna Jenkinsybold - External Covid-19 Vaccine Moderna (Spikevax), Mrna-lnp, Tito Protein, Pf 2021-03-09 00:00:00 Completed Kateryna Seybold - External Covid-19 Vaccine Moderna (Spikevax), Mrna-lnp, Tito Protein, Pf 2021-03-09 00:00:00 Completed Kateryna Seybold - External Covid-19 Vaccine Moderna (Spikevax), Mrna-lnp, Tito Protein, Pf 2021-03-09 00:00:00 Completed Kateryna Seybold - External Covid-19 Vaccine (Moderna), Mrna-lnp, Tito Protein, Pf, 100 Mcg/0.5ml,IM 2021-03-09 00:00:00 Completed Kateryna Seybold Covid-19 Vaccine Moderna (Spikevax), Mrna-lnp, Tito Protein, Pf 2021-03-09 00:00:00 Completed Kateryna Seybold - External Covid-19 Vaccine Moderna (Spikevax), Mrna-lnp, Tito Protein, Pf 2021-03-09 00:00:00 Completed Kateryna Seybold - External Covid-19 Vaccine Moderna (Spikevax), Mrna-lnp, Tito Protein, Pf 2021-03-09 00:00:00 Completed Kateryna Seybold - External Covid-19 Vaccine Moderna (Spikevax), Mrna-lnp, Tito Protein, Pf 2021-03-09 00:00:00 Completed Kateryna Seybold - External Covid-19 Vaccine Moderna (Spikevax), Mrna-lnp, Tito Protein, Pf 2021-03-09 00:00:00 Completed Kateryna Seybold - External Covid-19 Vaccine Moderna (Spikevax), Mrna-lnp, Tito Protein, Pf 2021-03-07 00:00:00 Completed Kateryna Seybold - External Covid-19 Vaccine Moderna (Spikevax), Mrna-lnp, Tito Protein, Pf 2021-03-07 00:00:00 Completed Kateryna Seybold - External Covid-19 Vaccine Moderna (Spikevax), Mrna-lnp, Tito Protein, Pf 2021-03-07 00:00:00 Completed Kateryna Seybold - External Covid-19 Vaccine Moderna (Spikevax), Mrna-lnp, Tito Protein, Pf 2021-03-07 00:00:00 Completed Kateryna Seybold - External Covid-19 Vaccine Moderna (Spikevax), Mrna-lnp, Tito Protein, Pf 2021-03-07 00:00:00 Completed Kateryna Seybold - External Covid-19 Vaccine Moderna (Spikevax), Mrna-lnp, Tito Protein, Pf 2021-03-07 00:00:00 Completed Kateryna Seybold - External Covid-19 Vaccine Moderna (Spikevax), Mrna-lnp, Tito Protein, Pf 2021-03-07 00:00:00 Completed Kateryna Seybold - External Covid-19 Vaccine Moderna (Spikevax), Mrna-lnp, Tito Protein, Pf 2021-03-07 00:00:00 Completed Kateryna Seybold - External Covid-19 Vaccine Moderna (Spikevax), Mrna-lnp, Tito Protein, Pf 2021-03-07 00:00:00 Completed Kateryna Seybold - External Covid-19 Vaccine Moderna (Spikevax), Mrna-lnp, Tito Protein, Pf 2021-03-07 00:00:00 Completed Kateryna Seybold - External Covid-19 Vaccine Moderna (Spikevax), Mrna-lnp, Tito Protein, Pf 2021-03-07 00:00:00 Completed Kateryna Seybold - External Moderna COVID-19 Vaccine Moderna COVID-19 Vaccine 2021-02-07 11:48:00 Completed [facility] Covid-19 Vaccine Moderna (Spikevax), Mrna-lnp, Tito Protein, Pf 2021-02-07 00:00:00 Completed Kateryna Seybold - External Covid-19 Vaccine Moderna (Spikevax), Mrna-lnp, Tito Protein, Pf 2021-02-07 00:00:00 Completed Kateryna Seybold - External Covid-19 Vaccine Moderna (Spikevax), Mrna-lnp, Tito Protein, Pf 2021-02-07 00:00:00 Completed Kateryna Seybold - External Covid-19 Vaccine Moderna (Spikevax), Mrna-lnp, Tito Protein, Pf 2021-02-07 00:00:00 Completed Kateryna Seybold - External Covid-19 Vaccine Moderna (Spikevax), Mrna-lnp, Tito Protein, Pf 2021-02-07 00:00:00 Completed Kateryna Seybold - External Covid-19 Vaccine Moderna (Spikevax), Mrna-lnp, Tito Protein, Pf 2021-02-07 00:00:00 Completed Kateryna Seybold - External Covid-19 Vaccine Moderna (Spikevax), Mrna-lnp, Tito Protein, Pf 2021-02-07 00:00:00 Completed Kateryna Seybold - External Covid-19 Vaccine Moderna (Spikevax), Mrna-lnp, Tito Protein, Pf 2021-02-07 00:00:00 Completed Kateryna Seybold - External Covid-19 Vaccine Moderna (Spikevax), Mrna-lnp, Tito Protein, Pf 2021-02-07 00:00:00 Completed Kateryna Seybold - External Covid-19 Vaccine Moderna (Spikevax), Mrna-lnp, Tito Protein, Pf 2021-02-07 00:00:00 Completed Kateryna Seybold - External Covid-19 Vaccine (Moderna), Mrna-lnp, Tito Protein, Pf, 100 Mcg/0.5ml,IM 2021-02-07 00:00:00 Completed Kateryna Seybold Covid-19 Vaccine Moderna (Spikevax), Mrna-lnp, Tito Protein, Pf 2021-02-07 00:00:00 Completed Kateryna Seybold - External Covid-19 Vaccine Moderna (Spikevax), Mrna-lnp, Tito Protein, Pf 2021-02-07 00:00:00 Completed Kateryna Seybold - External Covid-19 Vaccine (Moderna), Mrna-lnp, Tito Protein, Pf, 100 Mcg/0.5ml,IM 2021-02-07 00:00:00 Completed Kateryna Seybold Covid-19 Vaccine Moderna (Spikevax), Mrna-lnp, Tito Protein, Pf 2021-02-07 00:00:00 Completed Kateryna Seybold - External Covid-19 Vaccine Moderna (Spikevax), Mrna-lnp, Tito Protein, Pf 2021-02-07 00:00:00 Completed Kateryna Seybold - External Covid-19 Vaccine Moderna (Spikevax), Mrna-lnp, Tito Protein, Pf 2021-02-07 00:00:00 Completed Kateryna Seybold - External Covid-19 Vaccine Moderna (Spikevax), Mrna-lnp, Tito Protein, Pf 2021-02-07 00:00:00 Completed Kateryna Seybold - External Covid-19 Vaccine Moderna (Spikevax), Mrna-lnp, Tito Protein, Pf 2021-02-07 00:00:00 Completed Kateryna Seybold - External Covid-19 Vaccine Moderna (Spikevax), Mrna-lnp, Tito Protein, Pf 2021-02-07 00:00:00 Completed Kateryna Seybold - External Covid-19 Vaccine Moderna (Spikevax), Mrna-lnp, Tito Protein, Pf 2021-02-07 00:00:00 Completed Kateryna Seybold - External Covid-19 Vaccine Moderna (Spikevax), Mrna-lnp, Tito Protein, Pf 2021-02-07 00:00:00 Completed Kateryna Seybold - External Covid-19 Vaccine Moderna (Spikevax), Mrna-lnp, Tito Protein, Pf 2021-02-07 00:00:00 Completed Kateryna Seybold - External Covid-19 Vaccine Moderna (Spikevax), Mrna-lnp, Tito Protein, Pf 2021-02-07 00:00:00 Completed Kateryna Seybold - External Afluria Afluria 2021-01-08 11:48:00 Completed [facility] Influenza, Seasonal, Injectable, Preservative Free 2021-01-08 00:00:00 Completed Kateryna Seybold - External Influenza, Seasonal, Injectable, Preservative Free 2021-01-08 00:00:00 Completed Kateryna Seybold - External Influenza, Seasonal, Injectable, Preservative Free 2021-01-08 00:00:00 Completed Kateryna Seybold - External Influenza, Seasonal, Injectable, Preservative Free 2021-01-08 00:00:00 Completed Kateryna Seybold - External Influenza, Seasonal, Injectable, Preservative Free 2021-01-08 00:00:00 Completed Kateryna Seybold - External Influenza, Seasonal, Injectable, Preservative Free 2021-01-08 00:00:00 Completed Kateryna Seybold - External Influenza, Seasonal, Injectable, Preservative Free 2021-01-08 00:00:00 Completed Kateryna Seybold - External Influenza, Seasonal, Injectable, Preservative Free 2021-01-08 00:00:00 Completed Kateryna Seybold - External Influenza, Seasonal, Injectable, Preservative Free 2021-01-08 00:00:00 Completed Kateryna Seybold - External Influenza, Seasonal, Injectable, Preservative Free 2021-01-08 00:00:00 Completed Kateryna Seybold - External Influenza, Seasonal, Injectable, Preservative Free 2021-01-08 00:00:00 Completed Kateryna Seybold - External Influenza, Seasonal, Injectable, Preservative Free 2021-01-08 00:00:00 Completed Kateryna Seybold - External Influenza, Seasonal, Injectable, Preservative Free 2021-01-08 00:00:00 Completed Kateryna Seybold Influenza, Seasonal, Injectable, Preservative Free 2021-01-08 00:00:00 Completed Kateryna Seybold Influenza, Seasonal, Injectable, Preservative Free 2021-01-08 00:00:00 Completed Kateryna Seybold - External Influenza, Seasonal, Injectable, Preservative Free 2021-01-08 00:00:00 Completed Kateryna Seybold - External Influenza, Seasonal, Injectable, Preservative Free 2021-01-08 00:00:00 Completed Kateryna Seybold - External Influenza, Seasonal, Injectable, Preservative Free 2021-01-08 00:00:00 Completed Kateryna Seybold - External Influenza, Seasonal, Injectable, Preservative Free 2021-01-08 00:00:00 Completed Kateryna Seybold - External Influenza, Seasonal, Injectable, Preservative Free 2021-01-08 00:00:00 Completed Kateryna Seybold - External Influenza, Seasonal, Injectable, Preservative Free 2021-01-08 00:00:00 Completed Kateryna Seybold - External Influenza, Seasonal, Injectable, Preservative Free 2021-01-08 00:00:00 Completed Kateryna Seybold - External Influenza, Seasonal, Injectable, Preservative Free 2021-01-08 00:00:00 Completed Kateryna Seybold - External Influenza, Seasonal, Injectable, Preservative Free 2021-01-08 00:00:00 Completed [facility] - External Covid-19 Vaccine Moderna (Spikevax), Mrna-lnp, Tito Protein, Pf Unknown [facility], Seasonal, Injectable, Preservative Free Unknown [facility] Influenza, Seasonal, Injectable, Preservative Free Unknown [facility] Vaccine Moderna (Spikevax), Mrna-lnp, Tito Protein, Pf Unknown [facility] Cov[facility] Vaccine Moderna (Spikevax), Mrna-lnp, Tito Protein, Pf Unknown Completed Kateryna Seybold - External Covid-19 Vaccine Moderna (Spikevax), Mrna-lnp, Tito Protein, Pf Unknown Completed [facility] - External Covid-19 Vaccine Moderna (Spikevax), Mrna-lnp, Tito Protein, Pf Unknown [facility] Influenza Virus Vaccine, Quad, Egg Free Unknown Completed Kateryna Seybold - External Influenza Virus Vaccine, Unspecified Formulation Unknown [facility] Cov[facility] Vaccine Moderna (Spikevax), Mrna-lnp, Tito Protein, Pf Unknown Completed Kateryna Seybold - External Covid-19 Vaccine Moderna (Spikevax), Mrna-lnp, Tito Protein, Pf Unknown [facility] Influenza, Seasonal, Injectable, Preservative Free Unknown [facility] Influenza, Seasonal, Injectable, Preservative Free Unknown [facility] Cov[facility] Vaccine Moderna (Spikevax), Mrna-lnp, Tito Protein, Pf Unknown Completed Kateryna Seybold - External Covid-19 Vaccine Moderna (Spikevax), Mrna-lnp, Tito Protein, Pf Unknown Completed Kateryna Seybold - External Covid-19 Vaccine Moderna (Spikevax), Mrna-lnp, Tito Protein, Pf Unknown Completed [facility] - External Covid-19 Vaccine Moderna (Spikevax), Mrna-lnp, Tito Protein, Pf Unknown Completed [facility] - External Influenza Virus Vaccine, Quad, Egg Free Unknown Completed [facility] Seybold - External Influenza Virus Vaccine, Unspecified Formulation Unknown Completed [facility] - External Covid-19 Vaccine Moderna (Spikevax), Mrna-lnp, Tito Protein, Pf Unknown Completed [facility] - External Covid-19 Vaccine Moderna (Spikevax), Mrna-lnp, Tito Protein, Pf Unknown Completed [facility] External Influenza, Seasonal, Injectable, Preservative Free Unknown Completed [facility] - External Influenza, Seasonal, Injectable, Preservative Free Unknown Completed [facility] - External Covid-19 Vaccine Moderna (Spikevax), Mrna-lnp, Tito Protein, Pf Unknown Completed [facility] - External Covid-19 Vaccine Moderna (Spikevax), Mrna-lnp, Tito Protein, Pf Unknown Completed [facility] - External Covid-19 Vaccine Moderna (Spikevax), Mrna-lnp, Tito Protein, Pf Unknown Completed [facility] - External Covid-19 Vaccine Moderna (Spikevax), Mrna-lnp, Tito Protein, Pf Unknown Completed [facility] - External Influenza Virus Vaccine, Quad, Egg Free Unknown [facility] Influenza Virus Vaccine, Unspecified Formulation Unknown Completed [facility] - External Covid-19 Vaccine Moderna (Spikevax), Mrna-lnp, Tito Protein, Pf Unknown Completed [facility] - External Covid-19 Vaccine Moderna (Spikevax), Mrna-lnp, Tito Protein, Pf Unknown Completed [facility] External Influenza, Seasonal, Injectable, Preservative Free Unknown Completed [facility] - External Influenza, Seasonal, Injectable, Preservative Free Unknown Completed [facility] - External Covid-19 Vaccine Moderna (Spikevax), Mrna-lnp, Tito Protein, Pf Unknown Completed [facility] - External Covid-19 Vaccine Moderna (Spikevax), Mrna-lnp, Tito Protein, Pf Unknown Completed Kateryna Seybold - External Covid-19 Vaccine Moderna (Spikevax), Mrna-lnp, Tito Protein, Pf Unknown Completed [facility] - External Covid-19 Vaccine Moderna (Spikevax), Mrna-lnp, Tito Protein, Pf Unknown Completed [facility] - External Influenza Virus Vaccine, Quad, Egg Free Unknown Completed [facility] - External Influenza Virus Vaccine, Unspecified Formulation Unknown Completed [facility] - External Covid-19 Vaccine Moderna (Spikevax), Mrna-lnp, Tito Protein, Pf Unknown Completed [facility] External Moderna COVID-19 Vaccine Moderna COVID-19 Vaccine Unknown Completed [facility] Moderna COVID-19 Vaccine Moderna COVID-19 Vaccine Unknown Completed [facility] Afluria Afluria Unknown Completed [facility] Moderna COVID-19 Vaccine Moderna COVID-19 Vaccine Unknown Completed [facility] Moderna COVID-19 Vaccine Moderna COVID-19 Vaccine Unknown Completed [facility] Afluria Afluria Unknown Completed [facility] Moderna COVID-19 Vaccine Moderna COVID-19 Vaccine Unknown Completed [facility] Moderna COVID-19 Vaccine Moderna COVID-19 Vaccine Unknown Completed [facility] Afluria Afluria Unknown Completed [facility] Moderna COVID-19 Vaccine Moderna COVID-19 Vaccine Unknown Completed [facility] Moderna COVID-19 Vaccine Moderna COVID-19 Vaccine Unknown Completed [facility] Afluria Afluria Unknown Completed [facility] Moderna COVID-19 Vaccine Moderna COVID-19 Vaccine Unknown Completed [facility] Moderna COVID-19 Vaccine Moderna COVID-19 Vaccine Unknown Completed [facility] Afluria Afluria Unknown Completed [facility] Moderna COVID-19 Vaccine Moderna COVID-19 Vaccine Unknown Completed [facility] Moderna COVID-19 Vaccine Moderna COVID-19 Vaccine Unknown Completed [facility] Afluria Afluria Unknown Completed [facility] Moderna COVID-19 Vaccine Moderna COVID-19 Vaccine Unknown Completed [facility] Moderna COVID-19 Vaccine Moderna COVID-19 Vaccine Unknown Completed [facility] Afluria Afluria Unknown Completed [facility] Moderna COVID-19 Vaccine Moderna COVID-19 Vaccine Unknown Completed [facility] Moderna COVID-19 Vaccine Moderna COVID-19 Vaccine Unknown Completed [facility] Afluria Afluria Unknown Completed [facility] Moderna COVID-19 Vaccine Moderna COVID-19 Vaccine Unknown Completed [facility] Moderna COVID-19 Vaccine Moderna COVID-19 Vaccine Unknown Completed [facility] Afluria Afluria Unknown Completed [facility] Moderna COVID-19 Vaccine Moderna COVID-19 Vaccine Unknown Completed [facility] Moderna COVID-19 Vaccine Moderna COVID-19 Vaccine Unknown Completed [facility] Afluria Afluria Unknown Completed [facility] Vital Signs Vital Name Observation Time Observation Value Comments S ource Systolic blood pressure 2024-01-21 14:55:00 118 mm[Hg] Kateryna Hdez ld - External Diastolic blood pressure 2024-01-21 14:55:00 74 mm[Hg] Kateryna horn - External Heart rate 2024-01-21 14:55:00 59 /min Allison Gauthier - External Body temperature 2024-01-21 14:55:00 36.5 Leslie Kateryna Gauthier - External Respiratory rate 2024-01-21 14:55:00 15 /min Kateryna Gauthier - External Body height 2024-01-21 14:55:00 162.6 cm Keisha Gauthier - External Body weight 2024-01-21 14:55:00 102.967 kg Keisha trell Seybold - External BMI 2024-01-21 14:55:00 38.96 kg/m2 Keisha ey Seybold - External Oxygen saturation in Arterial blood by Pulse oximetry 2024-01-21 14:55:00 100 /min Kateryna Jenkinsybo ld - External height 2024-01-06 09:45:00 64.00 [in_i] Com [facility] weight 2024-01-06 09:45:00 220 [lb_av] Comm on [facility] temperature 2024-01-06 09:45:00 97.7 [degF] Com [facility] bmi 2024-01-06 09:45:00 37.76 kg/m2 Comm [facility] blood pressure systolic 2024-01-06 09:45:00 120 mm[Hg] Common [facility] blood pressure diastolic 2024-01-06 09:45:00 82 mm[Hg] [facility] Systolic blood pressure 2023-10-07 20:20:00 120 mm[Hg] Kateryna Seybo ld - External Diastolic blood pressure 2023-10-07 20:20:00 77 mm[Hg] Kateryna Seybo ld - External Heart rate 2023-10-07 20:20:00 65 /min Kel y Seybold - External Body temperature 2023-10-07 20:20:00 36.44 Leslie Kateryna Seybold - External Respiratory rate 2023-10-07 20:20:00 20 /min Kateryna Seybold - External Body height 2023-10-07 20:20:00 162.6 cm Keisha ey Seybold - External Body weight 2023-10-07 20:20:00 105.235 kg Keisha ey Seybold - External BMI 2023-10-07 20:20:00 39.82 kg/m2 Keisha ey Seybold - External Oxygen saturation in Arterial blood by Pulse oximetry 2023-10-07 20:20:00 99 /min Kateryna Seybo ld - External Systolic blood pressure 2023-07-24 13:36:00 115 mm[Hg] Kateryna Seybo ld - External Diastolic blood pressure 2023-07-24 13:36:00 66 mm[Hg] Kateryna Seybo ld - External Heart rate 2023-07-24 13:36:00 57 /min Kelse y Seybold - External Body temperature 2023-07-24 13:36:00 36.78 Leslie Kateryna Seybold - External Respiratory rate 2023-07-24 13:36:00 18 /min Kateryna Seybold - External Body height 2023-07-24 13:36:00 162.6 cm Keisha ey Seybold - External Body weight 2023-07-24 13:36:00 105.235 kg Kesiha ey Seybold - External BMI 2023-07-24 13:36:00 39.82 kg/m2 Keisha ey Seybold - External Oxygen saturation in Arterial blood by Pulse oximetry 2023-07-24 13:36:00 100 /min Kateryna Seybo ld - External Systolic blood pressure 2023-07-01 19:18:00 106 mm[Hg] Kateryna Seybo ld - External Diastolic blood pressure 2023-07-01 19:18:00 68 mm[Hg] Kateryna ybo ld - External Heart rate 2023-07-01 19:18:00 64 /min Kelse y Seybold - External Body temperature 2023-07-01 19:18:00 36.44 Leslie Kateryna Seybold - External Respiratory rate 2023-07-01 19:18:00 16 /min Kateryna Seybold - External Body height 2023-07-01 19:18:00 162.6 cm Keisha ey Seybold - External Body weight 2023-07-01 19:18:00 107.049 kg Keisha ey Seybold - External BMI 2023-07-01 19:18:00 40.51 kg/m2 Keisha ey Seybold - External Oxygen saturation in Arterial blood by Pulse oximetry 2023-07-01 19:18:00 97 /min Kateryna Seybo ld - External height 2023-05-20 13:30:00 64.00 [in_i] Com [facility] weight 2023-05-20 13:30:00 220 [lb_av] Comm [facility] temperature 2023-05-20 13:30:00 98.9 [degF] Com [facility] bmi 2023-05-20 13:30:00 37.76 kg/m2 [facility] blood pressure systolic 2023-05-20 13:30:00 116 mm[Hg] [facility] blood pressure diastolic 2023-05-20 13:30:00 74 mm[Hg[facility] Body height 2023-03-07 16:34:00 162.6 cm Keisha ey Seybold - External Body weight 2023-03-07 16:34:00 101.606 kg Keisha ey Seybold - External BMI 2023-03-07 16:34:00 38.45 kg/m2 Keisha ey Seybold - External Systolic blood pressure 2023-02-25 18:28:00 113 mm[Hg] Kateryna Seybo ld - External Diastolic blood pressure 2023-02-25 18:28:00 77 mm[Hg] Kateryna Seybo ld - External Heart rate 2023-02-25 18:28:00 64 /min Kelse y Seybold - External Body temperature 2023-02-25 18:28:00 36.56 Leslie Kateryna Seybold - External Respiratory rate 2023-02-25 18:28:00 15 /min Kateryna Seybold - External Body height 2023-02-25 18:28:00 162.6 cm Keisha ey Seybold - External Body weight 2023-02-25 18:28:00 103.874 kg Keisha ey Seybold - External BMI 2023-02-25 18:28:00 39.31 kg/m2 Keisha ey Seybold - External Oxygen saturation in Arterial blood by Pulse oximetry 2023-02-25 18:28:00 98 /min Kateryna Seybo ld - External Body height 2023-01-15 17:25:00 162.6 cm Keisha ey Seybold - External Body weight 2023-01-15 17:25:00 95.255 kg Keisha ey Seybold - External BMI 2023-01-15 17:25:00 36.05 kg/m2 Keisha ey Seybold - External Body height 2022-12-19 15:30:00 162.6 cm Keisha ey Seybold - External Body weight 2022-12-19 15:30:00 95.255 kg Keisha ey Seybold - External BMI 2022-12-19 15:30:00 36.05 kg/m2 Keisha ey Seybold - External Systolic blood pressure 2022-11-27 19:13:00 122 mm[Hg] Kateryna Seybo ld - External Diastolic blood pressure 2022-11-27 19:13:00 83 mm[Hg] Kateryna Seybo ld - External Heart rate 2022-11-27 19:13:00 64 /min Kelse y Seybold - External Body temperature 2022-11-27 19:13:00 36.56 Leslie Kateryna Seybold - External Respiratory rate 2022-11-27 19:13:00 14 /min Kateryna Seybold - External Body height 2022-11-27 19:13:00 162.6 cm Keisha ey Seybold - External Body weight 2022-11-27 19:13:00 99.791 kg Keisha ey Seybold - External BMI 2022-11-27 19:13:00 37.76 kg/m2 Keisha ey Seybold - External Oxygen saturation in Arterial blood by Pulse oximetry 2022-11-27 19:13:00 99 /min Kateryna Seybo ld - External Systolic blood pressure 2022-09-25 14:59:00 110 mm[Hg] Kateryna Seybo ld - External Diastolic blood pressure 2022-09-25 14:59:00 74 mm[Hg] Kateryna Seybo ld - External Heart rate 2022-09-25 14:59:00 67 /min Kelse y Seybold - External Body temperature 2022-09-25 14:59:00 37.06 Leslie Kateryna Seybold - External Respiratory rate 2022-09-25 14:59:00 18 /min Kateryna Seybold - External Body height 2022-09-25 14:59:00 162.6 cm Keisha ey Seybold - External Body weight 2022-09-25 14:59:00 98.884 kg Keisha ey Seybold - External BMI 2022-09-25 14:59:00 37.42 kg/m2 Keisha ey Seybold - External Systolic blood pressure 2022-09-09 14:27:00 102 mm[Hg] Kateryna Seybo ld - External Diastolic blood pressure 2022-09-09 14:27:00 59 mm[Hg] Kateryna Seybo ld - External Heart rate 2022-09-09 14:27:00 61 /min Kelse y Seybold - External Body temperature 2022-09-09 14:27:00 36.44 Leslie Kateryna Seybold - External Respiratory rate 2022-09-09 14:27:00 14 /min Kateryna Seybold - External Body height 2022-09-09 14:27:00 162.6 cm Keisha ey Seybold - External Body weight 2022-09-09 14:27:00 100.245 kg Keisha ey Seybold - External BMI 2022-09-09 14:27:00 37.93 kg/m2 Keisha ey Seybold - External Oxygen saturation in Arterial blood by Pulse oximetry 2022-09-09 14:27:00 99 /min Kateryna Seybo ld - External Systolic blood pressure 2021-11-26 16:51:00 114 mm[Hg] Kateryna Seybo ld Diastolic blood pressure 2021-11-26 16:51:00 76 mm[Hg] Kateryna Seybo ld Heart rate 2021-11-26 16:51:00 80 /min Kelse y Seybold Body temperature 2021-11-26 16:51:00 35.78 Leslie Kateryna Seybold Respiratory rate 2021-11-26 16:51:00 16 /min Kateryna Seybold Body height 2021-11-26 16:51:00 162.6 cm Keisha ey Seybold Body weight 2021-11-26 16:51:00 115.667 kg Keisha ey Seybold BMI 2021-11-26 16:51:00 43.77 kg/m2 Keisha ey Seybold Procedures Procedure Date / Time Performed Performing Clinicia n Source PELVIS 2022-12-19 16:47:51 Gus Neri S eybold - External Encounters Start Date/Time End Date/Time Encounter Type Admission Type Attending [facility] Care Facility Care Department Encounter ID Source 2023-12-19 10:16:00 Outpatient Darius Gallo [facility] [id number] [facility] 2023-03-24 15:49:01 Outpatient Darius Gallo [facility] [id number] [facility] 2023-03-11 09:16:01 Outpatient Darius Gallo [facility] [id number] [facility] 2022-08-15 09:14:03 Outpatient Darius Gallo [facility] [id number] [facility] 2022-06-18 08:34:02 Outpatient Darius Gallo [facility] [id number] [facility] 2022-03-12 16:48:01 Outpatient Wing, Avnee [facility] [id number] [facility] 2022-02-27 09:15:02 Outpatient Wing, Avnee [facility] [id number] [facility] 2022-02-26 13:41:03 Outpatient Wing, Avnee [facility] [id number] [facility] 2022-02-12 14:26:01 Outpatient Wing, Avnee [facility] [id number] [facility] 2022-02-08 14:54:01 Outpatient Wing, Avnee [facility] [id number] [facility] 2022-01-30 07:54:01 Outpatient Wing, Avnee [facility] [id number] [facility] 2022-01-28 10:38:01 Outpatient Wing, Avnee [facility] [id number] [facility] 2022-01-21 15:25:01 Outpatient Wing, Avnee [facility] [id number] [facility] 2022-01-15 09:32:04 Outpatient Wing, Avnee [facility] [id number] [facility] 2022-01-14 10:53:02 [facility] [id number] [facility] 2022-01-11 15:37:01 [facility] [id number] [facility] 2021-12-05 14:28:58 Out[facility] Wing, Britt[facility] [id number] [facility] 2021-12-05 14:24:55 [facility] [id number] [facility] 2021-12-05 14:21:24 Outpatient WingBrittanie [facility] [id number] [facility] 2024-04-22 09:30:00 2024-04-22 09:30:00 Outpatient GEORGINA FOSTER [id number] [facility] 2024-03-24 08:30:00 2024-03-24 08:30:00 Outpatient ASUNCION BROWN [id number] [facility] 2024-01-22 00:00:00 2024-01-22 00:00:00 Outpatient KATERYNA MITCHELL [id number] [facility]ateryna [facility] 2024-01-22 00:00:00 2024-01-22 00:00:00 Outpatient GEORGINA FOSTER [id number] [facility] 2024-01-21 10:00:00 2024-01-21 10:00:00 Outpatient GEORGINA FOSTER [id number] [facility]yna [facility] 2024-01-19 08:40:00 2024-01-19 08:40:00 Outpatient KB MITCHELL [id number] [facility] 2024-01-16 00:00:00 2024-01-16 00:00:00 Outpatient GEORGINA FOSTER [id number] [facility] 2024-01-14 16:00:00 2024-01-14 16:00:00 Outpatient DARIUSZ SANTANA KATERYNA MITCHELL [id number] [facility] 2024-01-13 00:00:00 2024-01-13 00:00:00 Outpatient KATERYNA MITCHELL [id number] [facility] 2024-01-06 00:00:00 2024-01-06 00:00:00 (F/U) [facility] [id number] [facility] 2023-12-30 10:00:00 2023-12-30 10:00:00 Outpatient PADRON, CELESTE [id number] [facility]:00 2023-12-17 00:00:00 Outpatient KATERYNA MITCHELL [id number] [facility] 2023-12-17 00:00:00 2023-12-17 00:00:00 Outpatient GEORGINA FOSTER [id number] [facility] 2023-12-16 11:15:00 2023-12-16 11:15:00 Outpatient ZEYADLINH MEZA [id number] [facility] 2023-12-16 10:15:00 2023-12-16 10:15:00 Outpatient 39, HOLTER KATERYNA MITCHELL [id number] [facility] 2023-12-08 10:20:00 2023-12-08 10:20:00 Outpatient NOCCITLALLI Kaur [id number] [facility] 2023-12-05 11:30:00 2023-12-05 11:30:00 Outpatient ZEYAD, ATAANNALISE MITCHELL [id number] [facility] 2023-11-21 00:00:00 2023-11-21 00:00:00 Outpatient GEORGINA FOSTER [id number] [facility]ateryna [facility] 2023-11-14 12:59:12 2023-11-14 12:59:12 Outpatient [facility] [id number] Dave Ibanez 2023-11-05 11:00:00 2023-11-05 11:00:00 Outpatient KATERYNA MITCHELL [id number] [facility] 2023-11-05 10:00:00 2023-11-05 10:00:00 Outpatient KATERYNA MITCHELL [id number] Kateryna Seybold 2023-11-05 09:30:00 2023-11-05 09:30:00 Outpatient KATERYNA MITCHELL [id number] [facility] 2023-11-05 08:30:00 2023-11-05 08:30:00 Outpatient KATERYNA MITCHELL [id number] [facility] 2023-11-05 00:00:00 2023-11-05 00:00:00 Outpatient ZEYADBARBRA KaurANNALISE MITCHELL [id number] [facility]23-10-[facility] 00:00:00 2023-10-31 00:00:00 Outpatient DARIUS GALLO [id number] [facility] 2023-10-30 00:00:00 2023-10-30 00:00:00 Outpatient DARIUS GALLO [id number] [facility] 2023-10-15 14:30:00 2023-10-15 14:30:00 Outpatient HERON HERNANDEZ [id number] [facility] 2023-10-08 00:00:00 2023-10-08 00:00:00 Outpatient GEORGINA FOSTER [id number] [facility] 2023-10-07 15:15:00 2023-10-07 15:15:00 Outpatient LABUsha MITCHELL [id number] Kateryna Seybold 2023-10-07 14:45:00 2023-10-07 14:45:00 Outpatient GEORGINA FOSTER [id number] Kateryna Seybold 2023-10-07 00:00:00 2023-10-07 00:00:00 (TEL) [facility] [id number] [facility] 2023-09-26 00:00:00 2023-09-26 00:00:00 Outpatient DARIUS GALLO [id number] [facility] 2023-09-24 10:15:00 2023-09-24 10:15:00 Outpatient GEORGINA FOSTER KATERYNA MITCHELL [id number] [facility] 2023-09-04 00:00:00 2023-09-04 00:00:00 Outpatient SABINODARIUS CABRAL KATERYNA MITCHELL [id number] [facility] 2023-09-03 09:45:00 2023-09-03 09:45:00 Outpatient LINH JEFFERS [id number] [facility] 2023-08-28 00:00:00 2023-08-28 00:00:00 (TEL) [facility] [id number] [facility] 2023-08-25 00:00:00 2023-08-25 00:00:00 Outpatient GUS NERI KATERYNA MITCHELL [id number] [facility] 2023-08-25 00:00:00 2023-08-25 00:00:00 Outpatient DARIUS GALLO KATERYNA MITCHELL [id number] [facility] 2023-08-19 10:30:00 2023-08-19 10:30:00 Outpatient KATERYNA MITCHELL [id number] [facility] 2023-08-19 09:30:00 2023-08-19 09:30:00 Outpatient KATERYNA MITCHELL [id number] [facility] 2023-08-19 09:00:00 2023-08-19 09:00:00 Outpatient KATERYNA MITCHELL [id number] [facility] 2023-08-19 08:00:00 2023-08-19 08:00:00 Outpatient KATERYNA MITCHELL [id number] [facility] 2023-08-07 11:00:00 2023-08-07 11:00:00 Outpatient ZEYADLINH Kaur KATERYNA MITCHELL [id number] [facility] 2023-08-01 15:00:00 2023-08-01 15:00:00 Outpatient ARABELLA JUNE [id number] [facility] 2023-08-01 15:00:00 2023-08-01 15:00:00 Outpatient ARABELLA JUNE KATERYNA MITCHELL [id number] [facility] 2023-08-01 12:30:00 2023-08-01 12:30:00 Outpatient KATERYNA MITCHELL [id number] [facility] 2023-07-30 00:00:00 2023-07-30 00:00:00 Outpatient GEORGINA FOSTER [id number] [facility] 2023-07-24 15:00:00 2023-07-24 15:00:00 Outpatient GAURI ABHAY KATERYNA MITCHELL [id number] [facility]yna [facility] 2023-07-24 09:45:00 2023-07-24 09:45:00 Outpatient ANIBAL KATERYNA MITCHELL [id number] [facility] 2023-07-24 08:30:00 2023-07-24 08:30:00 Outpatient DARIUSZ SANTANA [facility] [id number] [facility] 11:23:53 2023-07-23 11:23:53 Outpatient SFA SFA [id number] Dave F Shamar 2023-07-17 00:00:00 2023-07-17 00:00:00 Outpatient DARIUS GALLO [id number] [facility] 2023-07-12 00:00:00 2023-07-12 00:00:00 Outpatient DARIUS GALLO [id number] [facility] 2023-07-10 13:15:00 2023-07-10 13:15:00 Outpatient LINH JEFFERS KATERYNA MITCHELL [id number] [facility] 2023-07-10 13:00:00 2023-07-10 13:00:00 Outpatient 39, HOLTER KATERYNA MITCHELL [id number] [facility] 2023-07-09 11:37:42 2023-07-09 11:37:42 Outpatient SFA SFA [id number] Dave Ibanez 2023-07-03 00:00:00 2023-07-03 00:00:00 Outpatient TAIWO FOSTERAND KATERYNA MITCHELL [id number] Kateryna Gauthier 2023-07-03 00:00:00 2023-07-03 00:00:00 Outpatient MD KATERYNA RASHID [id number] Kateryna Gauthier 2023-07-02 00:00:00 2023-07-02 00:00:00 Outpatient GEORGINA FOSTER KATERYNA MITCHELL [id number] Kateryna Gauthier 2023-07-01 14:45:00 2023-07-01 14:45:00 Outpatient KB KATERYNA MITCHELL [id number] Kateryna Gauthier 2023-07-01 14:15:00 2023-07-01 14:15:00 Outpatient GEORGINA FOSTER KATERYNA MITCHELL [id number] Kateryna Gauthier 2023-07-01 00:00:00 2023-07-01 00:00:00 Outpatient DARIUS GALLO [id number] Kateryna Gauthier 2023-06-27 13:45:00 2023-06-27 13:45:00 Outpatient GEORGINA FOSTER KATERYNA MITCHELL [id number] [facility]ateryna Gauthier 2023-06-26 09:07:56 2023-06-26 09:07:56 Outpatient SFA SFA [id number] Dave Ibanez 2023-06-24 08:21:08 2023-06-24 08:21:08 Outpatient SFA SFA [id number] Dave Ibanez 2023-06-23 00:00:00 2023-06-23 00:00:00 Outpatient KATERYNA MITCHELL [id number] Kateryna Disha 2023-06-23 00:00:00 2023-06-23 00:00:00 Outpatient GEORGINA FOSTER KATERYNA MITCHELL [id number] Kateryna Gauthier 2023-06-23 00:00:00 2023-06-23 00:00:00 Outpatient KATERYNA MITCHELL [id number] Kateryna oliverio 2023-06-23 00:00:00 2023-06-23 00:00:00 (TEL) [facility] [id number] [facility] 2023-06-12 13:39:43 2023-06-12 13:39:43 Outpatient SFA SFA [id number] Dave Ibanez 2023-06-10 08:22:41 2023-06-10 08:22:41 Outpatient SFA SFA [id number] Dave Ibanez 2023-05-28 00:00:00 2023-05-28 00:00:00 Outpatient NERIGUS KATERYNA MITCHELL [id number] [facility] 2023-05-28 00:00:00 2023-05-28 00:00:00 Outpatient SABINO DARIUS KATERYNA MITCHELL [id number] [facility] 2023-05-27 11:07:00 2023-05-27 11:07:00 Outpatient SFA SFA [id number] Dave Ibanez 2023-05-26 00:00:00 2023-05-26 00:00:00 Outpatient [facility] [id number] [facility] 2023-05-22 10:41:13 2023-05-22 10:41:13 Outpatient SFA RICK [id number] Dave Ibanez 2023-05-21 00:00:00 2023-05-21 00:00:00 Outpatient [facility] [id number] [facility] 2023-05-21 00:00:00 2023-05-21 00:00:00 Outpatient [facility] [id number] [facility] 2023-05-20 00:00:00 2023-05-20 00:00:00 Outpatient GEORGINA FOSTER [id number] [facility] 2023-05-20 00:00:00 2023-05-20 00:00:00 OFFICE VISIT ESTAB PT LEVEL 4 [facility] [id number] [facility] 2023-05-20 00:00:00 2023-05-20 00:00:00 (TEL) [facility] [id number] [facility] 2023-05-01 00:00:00 2023-05-01 00:00:00 Outpatient GEORGINA FOSTER [id number] [facility] 2023-04-30 15:35:00 2023-04-30 15:35:00 Outpatient LAB90 KATERYNA MITCHELL [id number] [facility]ateryna [facility] 2023-04-30 14:30:00 2023-04-30 14:30:00 Outpatient ENRICO SIDDIQUI KATERYNA MITCHELL [id number] [facility]yna [facility] 2023-04-29 00:00:00 2023-04-29 00:00:00 Outpatient TAIWO FOSTERAND KATERYNA MITCHELL [id number] [facility] 2023-04-23 00:00:00 2023-04-23 00:00:00 (TEL) [facility]C [facility] [id number] [facility] 2023-04-23 00:00:00 2023-04-23 00:00:00 (TEL) [facility] [id number] [facility] 2023-04-21 00:00:00 2023-04-21 00:00:00 Outpatient NERI, GUS KATERYNA MITCHELL [id number] [facility] 2023-04-16 10:45:00 2023-04-16 10:45:00 Outpatient NERI, GUS KATERYNA MITCHELL [id number] [facility] 2023-04-09 00:00:00 2023-04-09 00:00:00 Outpatient NERIGUS KATERYNA MITCHELL [id number] [facility] 2023-04-03 00:00:00 2023-04-03 00:00:00 Outpatient JORDINTRUMANGEORGINA KATERYNA MITCHELL [id number] [facility] 2023-04-01 00:00:00 2023-04-01 00:00:00 Outpatient KATERYNA MITCHELL [id number] [facility]yna [facility] 2023-04-01 00:00:00 2023-04-01 00:00:00 Outpatient DARIUS GALLO [id number] [facility] 2023-03-28 00:00:00 2023-03-28 00:00:00 Outpatient KATERYNA MITCHELL [id number] [facility] 2023-03-28 00:00:00 2023-03-28 00:00:00 Outpatient PREZAS, GEORGINA STEELESEY [id number] Kateryna Seybold 2023-03-26 11:30:00 2023-03-26 11:30:00 Outpatient ENRICO SIDDIQUISEY [id number] Kateryna Seybold 2023-03-26 11:20:00 2023-03-26 11:20:00 Outpatient LABUsha MITCHELL KATERYNA [id number] Kateryna Seybold 2023-03-26 00:00:00 2023-03-26 00:00:00 Outpatient PREZAS, GEORGINA STEELESEY [id number] [facility]ateryna Seybold 2023-03-24 00:00:00 2023-03-24 00:00:00 Outpatient PREZAS, GEORGINA MITCHELL KATERYNA [id number] Kateryna Seybold 2023-03-24 00:00:00 2023-03-24 00:00:00 [facility] [id number] 2023-03-12 00:00:00 2023-03-12 00:00:00 Outpatient PREZAS, GEORGINA MITCHELL KATERYNA [id number] Kateryna Seybold 2023-03-07 13:15:00 2023-03-07 13:15:00 Outpatient NERIGUS KATERYNA [id number] Kateryna Seybold 2023-03-07 00:00:00 2023-03-07 00:00:00 Outpatient RAVENNEO KATERYNA MITCHELL [id number] Kateryna Seybold 2023-03-03 00:00:00 2023-03-03 00:00:00 Outpatient PREZASGEORGINA KATERYNA [id number] Kateryna Seybold 2023-03-03 00:00:00 2023-03-03 00:00:00 Outpatient PREZAS, GEORGINA KATERYNA MITCHELL [id number] Kateryna Seybold 2023-03-03 00:00:00 2023-03-03 00:00:00 Outpatient PREZAS, GEORGINA KATERYNA MITCHELL [id number] Kateryna Seybold 2023-02-26 00:00:00 2023-02-26 00:00:00 Outpatient GEORGINA FOSTER KATERYNA MITCHELL [id number] [facility] 2023-02-26 00:00:00 2023-02-26 00:00:00 (TEL) [facility] [id number] [facility] 2023-02-25 14:00:00 2023-02-25 14:00:00 Outpatient LAB90 KATERYNA MITCHELL [id number] [facility] 2023-02-25 13:30:00 2023-02-25 13:30:00 Outpatient GEORGINA FOSTER KATERYNA MITCHELL [id number] [facility]ateryna Seybdayanna 2023-02-25 00:00:00 2023-02-25 00:00:00 Outpatient KATERYNA MITCHELL [id number] [facility] 2023-02-25 00:00:00 2023-02-25 00:00:00 Outpatient DARIUS GALLO [id number] [facility] 2023-01-24 00:00:00 2023-01-24 00:00:00 Outpatient DARREL CHOI [id number] [facility] 2023-01-21 00:00:00 2023-01-21 00:00:00 Outpatient MD KATERYNA RASHID [id number] [facility] 2023-01-20 07:30:00 2023-01-20 07:30:00 Outpatient KATERYNA MITCHELL [id number] [facility]yna [facility] 2023-01-15 15:30:00 2023-01-15 15:30:00 Outpatient GUS NERI [id number] Kateryna Seybold 2023-01-13 11:15:00 2023-01-13 11:15:00 Outpatient KATERYNA MITCHELL [id number] [facility]yna Sey[facility]dayanna 2023-01-13 00:00:00 2023-01-13 00:00:00 Outpatient KATERYNA MITCHELL [id number] Kateryna Seoliverio 2023-01-13 00:00:00 2023-01-13 00:00:00 Outpatient KATERYNA MITCHELL [id number] Kateryna Seybold 2023-01-10 00:00:00 2023-01-10 00:00:00 Outpatient SABINODARIUS CABRAL KATERYNA MITCHELL [id number] Kateryna ybdayanna 2023-01-09 11:30:00 2023-01-09 11:30:00 Outpatient BIANCAVELIA KATERYNA MITCHELL [id number] [facility]yna Seybdayanna 2023-01-09 00:00:00 2023-01-09 00:00:00 Outpatient MD KATERYNA RASHID [id number] [facility]yna Sey[facility]day[facility] 2023-01-03 00:00:00 2023-01-03 00:00:00 Outpatient PREGEORGINA LAUGHLIN [id number] [facility]yna ybdayanna 2023-01-02 08:45:00 2023-01-02 08:45:00 Outpatient LABUsha MITCHELL [id number] [facility]yna Sey[facility]dayanna 2023-01-02 00:00:00 2023-01-02 00:00:00 Outpatient GEORGINA FOSTER [id number] [facility]yna Seybdayanna 2022-12-20 00:00:00 2022-12-20 00:00:00 Outpatient KATERYNA MITCHELL [id number] [facility]yna ybdayanna 2022-12-19 14:00:00 2022-12-19 14:00:00 Outpatient DARREL CHOI [id number] [facility] Sey[facility] 2022-12-19 10:40:00 2022-12-19 10:40:00 Outpatient KATERYNA MITCHELL [id number] [facility]yna ybdayanna 2022-12-19 08:00:00 2022-12-19 08:00:00 Outpatient JUSTINE PAULMEENA MITCHELL [id number] [facility] Sey[facility] 2022-12-19 00:00:00 2022-12-19 00:00:00 Outpatient KATERYNA MITCHELL [id number] [facility]yna Seybdayanna 2022-12-12 09:30:00 2022-12-12 09:30:00 Outpatient DARREL CHOI [id number] Kateryna Seybold 2022-12-09 00:00:00 2022-12-09 00:00:00 Outpatient GEORGINA FOSTER [id number] [facility]ateryna Seybold 2022-12-05 00:00:00 2022-12-05 00:00:00 Outpatient PREZAS, GEORGINA MITCHELL KATERYNA [id number] [facility]ateryna Seybold 2022-11-27 13:30:00 2022-11-27 13:30:00 Outpatient PREZAS, GEORGINA MITCHELL KATERYNA [id number] [facility]ateryna Seybold 2022-11-26 00:00:00 2022-11-26 00:00:00 Outpatient PREZAS, GEORGINA MITCHELL KATERYNA [id number] [facility]yna Seybold 2022-11-19 10:40:00 2022-11-19 10:40:00 Outpatient KB STEELELUIS ALFREDO MITCHELL [id number] Kateryna Seybold 2022-11-18 00:00:00 2022-11-18 00:00:00 Outpatient SABINO DARIUS KATERYNA MITCHELL [id number] [facility]ateryna Seybold 2022-11-14 11:30:00 2022-11-14 11:30:00 Outpatient PREZAS, GEORGINA MITCHELL KATERYNA [id number] [facility]yna Seybold 2022-11-14 00:00:00 2022-11-14 00:00:00 Outpatient PREZAS, GEORGINA MITCHELL KATERYNA [id number] [facility]ateryna Seybold 2022-11-13 00:00:00 2022-11-13 00:00:00 Outpatient PREZAS, GEORGINA KATERYNA MITCHELL [id number] [facility]yna Seybold 2022-11-06 09:15:00 2022-11-06 09:15:00 Outpatient KELLY CHRISTIANO KATERYNA MITCHELL [id number] [facility]ateryna Seybold 2022-10-29 08:30:00 2022-10-29 08:30:00 Outpatient KATERYNA MITCHELL [id number] Kateryna Seybold 2022-10-25 00:00:00 2022-10-25 00:00:00 Outpatient SABINO DARIUS KATERYNA MITCHELL [id number] [facility]ateryna Seybold 2022-09-25 10:05:00 2022-09-25 10:05:00 Outpatient KATERYNA MITCHELL [id number] [facility]yna Seybold 2022-09-25 10:00:00 2022-09-25 10:00:00 Outpatient KATERYNA MITCHELL [id number] [facility] 2022-[facility]-25 09:55:00 2022-09-25 09:55:00 Outpatient KATERYNA MITCHELL [id number] [facility] 2022-09-25 09:00:00 2022-09-25 09:00:00 Outpatient OU, CHRISTIANO KATERYNA MITCHELL [id number] [facility] 2022-09-10 10:00:00 2022-09-10 10:00:00 Outpatient OU, CHRISTIANO KATERYNA MITCHELL [id number] [facility] 2022-09-09 10:15:00 2022-09-09 10:15:00 Outpatient LAB90 KATERYNA MITCHELL [id number] [facility] 2022-09-09 09:30:00 2022-09-09 09:30:00 [id number] [facility]-06 16:00:00 2022-09-06 16:00:00 Outpatient DARIUS GALLO [id number] [facility] 2022-09-02 13:45:00 2022-09-02 13:45:00 Outpatient LATHA ROCK [id number] [facility] 2022-08-15 00:00:00 2022-08-15 00:00:00 Outpatient DARIUS GALLO [id number] [facility] 2022-07-10 00:00:00 2022-07-10 00:00:00 [facility] [id number] [facility]-09 00:00:00 2022-07-09 00:00:00 ambulatory [facility] [id number] [facility] 2022-07-04 00:00:00 2022-07-04 00:00:00 ambulatory [facility]C [facility] [id number] [facility] 2022-07-03 00:00:00 2022-07-03 00:00:00 Outpatient DARIUS GALLO [id number] [facility] 2022-07-02 00:00:00 2022-07-02 00:00:00 ambulatory [facility]LMLC [facility] [id number] [facility] 2022-06-26 00:00:00 2022-06-26 00:00:00 Outpatient DARIUS GALLO [id number] [facility] 2022-06-26 00:00:00 2022-06-26 00:00:00 ambulatory STLMLC [facility] [id number] [facility] 2022-06-12 00:00:00 2022-06-12 00:00:00 Outpatient DARIUS GALLO [id number] [facility] 2022-06-07 16:10:00 2022-06-07 16:10:00 Outpatient LAB90 KATERYNA MITCHELL [id number] [facility] 2022-06-07 15:30:00 2022-06-07 15:45:00 Office Visit Darius Gallo [facility] 1.2.840.114 [id number] [id number] [facility] 2022-05-15 00:00:00 2022-05-15 00:00:00 Outpatient DARIUS GALLO [id number] [facility] 2022-05-10 15:30:00 2022-05-10 16:00:00 Office Visit Darius Gallo [id number] [id number] [id number] [id number] [facility] 2022-05-08 00:00:00 2022-05-08 00:00:00 ambulatory STLMLC [facility] [id number] [facility] 2022-04-16 00:00:00 2022-04-16 00:00:00 ambulatory STLMLC [facility] [id number] [facility] 2022-04-15 00:00:00 2022-04-15 00:00:00 ambulatory STLMLC [facility] [id number] [facility] 2022-03-28 00:00:00 2022-03-28 00:00:00 ambulatory STLMLC [facility] [id number] [facility] 2022-03-21 00:00:00 2022-03-21 00:00:00 ambulatory STLMLC [facility] [id number] [facility] 2022-03-13 00:00:00 2022-03-13 00:00:00 ambulatory STLMLC [facility] [id number] [facility] 2022-03-12 00:00:00 2022-03-12 00:00:00 ambulatory STLMLC [facility] [id number] [facility] 2022-02-26 00:00:00 2022-02-26 00:00:00 ambulatory STLMLC [facility] [id number] [facility] 2022-02-26 00:00:00 2022-02-26 00:00:00 ambulatory STLMLC [facility] [id number] [facility] 2022-02-12 00:00:00 2022-02-12 00:00:00 ambulatory STLMLC [facility] [id number] [facility] 2022-02-05 00:00:00 2022-02-05 00:00:00 ambulatory STLMLC [facility] [id number] [facility] 2022-01-30 00:00:00 2022-01-30 00:00:00 ambulatory STLMLC [facility] [id number] [facility] 2022-01-30 00:00:00 2022-01-30 00:00:00 ambulatory STLMLC [facility] [id number] [facility] 2022-01-30 00:00:00 2022-01-30 00:00:00 ambulatory STLMLC [facility] [id number] [facility] 2022-01-21 00:00:00 2022-01-21 00:00:00 ambulatory STLMLC [facility] [id number] [facility] 2022-01-21 00:00:00 2022-01-21 00:00:00 ambulatory STLMLC [facility] [id number] [facility] 2022-01-21 00:00:00 2022-01-21 00:00:00 ambulatory STLMLC [facility] [id number] [facility] 2022-01-18 00:00:00 2022-01-18 00:00:00 ambulatory STLMLC [facility] [id number] [facility] 2022-01-15 00:00:00 2022-01-15 00:00:00 ambulatory STLMLC [facility]C [id number] [facility] 2022-01-08 00:00:00 2022-01-08 00:00:00 Outpatient DARIUS GALLO [id number] [facility] 2021-12-27 00:00:00 2021-12-27 00:00:00 Outpatient DARIUS GALLO [id number] [facility] 2021-12-25 00:00:00 2021-12-25 00:00:00 Outpatient DARIUS GALLO [id number] [facility] 2021-12-09 00:00:00 2021-12-09 00:00:00 Outpatient KATERYNA MITCHELL [id number] [facility] 2021-11-29 00:00:00 2021-11-29 00:00:00 Outpatient DARIUS GALLO [id number] [facility] 2021-11-27 08:15:00 2021-11-27 08:15:00 Outpatient LABUsha MITCHELL [id number] [facility] 2021-11-27 00:00:00 2021-11-27 00:00:00 Outpatient [facility]ALLO [id number] [facility] 2021-11-27 00:00:00 2021-11-27 00:00:00 Outpatient KATERYNA MITCHELL [id number] [facility] 2021-11-26 10:45:00 2021-11-26 11:15:00 Office Visit Darius Gallo 1.2.840.114 350.1.13.13 [id number] [id number] Kateryna Gauthier 2021-11-23 00:00:00 2021-11-23 00:00:00 Outpatient YOHAN FRIEDMAN KATERYNA KATERYNA [id number] Katerynaluis alfredo Gauthier 2021-11-05 00:00:00 2021-11-05 00:00:00 ambulatory STLMLC [facility] [id number] [facility] 2021-11-01 00:00:00 2021-11-01 00:00:00 ambulatory STLMLC [facility] [id number] [facility] 2021-10-29 00:00:00 2021-10-29 00:00:00 ambulatory STLMLC [facility] [id number] [facility] 2021-10-24 00:00:00 2021-10-24 00:00:00 ambulatory STLMLC [facility] [id number] [facility] 2021-10-23 00:00:00 2021-10-23 00:00:00 (TEL) STLMLC [facility] [id number] [facility] 2021-10-16 00:00:00 2021-10-16 00:00:00 ambulatory STLMLC [facility] [id number] [facility] 2021-02-28 19:00:00 2021-02-28 20:05:00 Emergency Raul Elkins [facility] 1.2.840.114 350.1.13.10 4.2.7.2.686 [id number] 2021-02-28 18:54:00 2021-02-28 18:54:00 Emergency [facility] [id number] [facility] 2020-11-12 10:27:00 2020-11-12 13:27:00 Emergency X [facility] ERT [id number] [facility] 2020-11-12 10:27:00 2020-11-12 10:27:00 Emergency X [facility] ERT [id number] [facility] 2020-06-28 14:56:00 2020-06-28 17:04:00 Emergency Rafia Pisano [facility] 1.2.840.114 350.1.13.10 4.2.7.2.686 [id number] 2020-06-28 14:56:00 2020-06-28 14:56:00 Emergency X [facility] ERT [id number] [facility] 2020-06-28 00:00:00 2020-06-28 00:00:00 Orders Only Doctor Unassigned, [place] [facility] 1.2.840.114 350.1.13.10 4.2.7.2.686 [id number] 2020-03-20 18:31:57 2020-03-20 20:18:00 Emergency Errol Sharp [facility] 1.2.840.114 350.1.13.10 4.2.7.2.686 [id number] 2020-03-20 18:31:57 2020-03-20 18:31:57 Emergency X [facility] ERT [id number] [facility] Results Test Description Test Time Test Comments Results Resul t Comments Source - XR FLUOROSCOPY 0-60 MIN 2019-01-14 10:27:00 Name: RACHAEL OQUENDO [place] : 1960 Age/S: 58 / M [id number] Unit #: [id number] Loc: [place] [address] Phys: Kevin Rollins MD Acct: [id number] Dis Date: Status: [facility] PHONE #: [phone] Exam Date: 01/14/2019 0910 FAX #: Reason: PORT A CATH PLACEMENT EXAMS: CPT: [id number] XR FLUOROSCOPY 0-60 MIN 49952 Fluoro Time: 8 SEC DAP (Gy m2): [...] PAGE 1 Signed Report Name: RACHAEL OQUENDO [place] : 1960 Age/S: 58 / M [id number] Unit #: [id number] Loc: [place] [address] Phys: Kevin Rollins MD Acct: [id number] Dis Date: Status: [facility] PHONE #: [phone] Exam Date: 01/14/2019 0910 FAX #: Reason: PORT A CATH PLACEMENT EXAMS: CPT: [id number] XR FLUOROSCOPY 0-60 MIN 01683 Fluoro Time: 8 SEC DAP (Gy m2): Air Kerma (mGy): (Continued) Technologist: Sandy Lucero RT(R)(CT); Mary Carbajal RT(R) [facility] Date/Time: 01/14/2019 (1027) [email or web address] Orig Print D/T: S: 01/14/2019 (1030) PAGE 2 Signed Report - XR CHEST 1 [id number] 10:04:00Name: RACHAEL OQUENDO [place] : 1960 Age/S: 58 / M [id number] Unit #: [id number] Loc: [place] [address] Phys: Kevin Rollins MD Acct: [id number] Dis Date: Status: [facility] PHONE #: [phone] Exam Date: 01/14/2019 0955 FAX #: Reason: port placement EXAMS: CPT: [id number] XR CHEST 1 V 03891 Fluoro Time: DAP (Gy m2): Air Kerma [...] the right paratracheal region could represent adenopathy, enlargedthyroid gland, vascular prominence, or underlying mass lesion. Mediastinal hematoma given recent catheter placement is not excluded particularly given the lack of prior exams to determine whether this is acute after port placement. Consider chest CT with IV contrast. at 1004 Reported and signed by: Gadiel Baker, [facility]: Shamar SANDERS; Kevin Rollins MD PAGE 1 Signed Report [facility] 1960 Age/S: 58 / M [id number] Unit #: [id number] Loc: [place] [address] Phys: Kevin Rollins MD Acct: [id number] Dis Date: Status: [facility] PHONE #: [phone] Exam Date: 01/14/2019 0955 FAX #: Reason: port placement EXAMS: CPT: [id number] XR CHEST 1 V 23184 Fluoro Time: DAP (Gym2): Air Kerma (mGy): (Continued) Technologist: Rachael Izquierdo, RT(R)(CT); Mary Carbajal RT(R) [facility] Date/Time: 01/14/2019 (1004) [email or web address] Orig Print D/T: S: 01/14/2019 (1007) PAGE 2 Signed ReportGLUCOSE BEDSIDE [id number] 07:20:00* Test Item Value Reference Range Interpretation Comme nts GLUCOSE BEDSIDE TESTING (minerva t code = GLUBED) 137 mg/dL 70-110 H [id number] 16:52:00 RUN DATE: 01/06/19 [facility] - LAB *LIVE* PAGE 1 RUN TIME: 3730 Specimen Inquiry RUN USER: INTERFACE PATIENT: OQUENDORACHAEL ACCNalini #: [id number] LOC: [place] U #: [id number] AGE/SX: 58/M ROOM: [facility] RE12/31/18REG DR: Kevin Rollins MD : 64 BED: 1 DIS: 01/02/19 STATUS: DIS IN TLOC: - SPEC #: [id number] RECD: 01/01/19 STATUS: MARCIA REFredi #: [id number] ONELIA: 12/31/[address]: Kevin Rollins MDENTERED: 01/01/19 SP TYPE: SURG OTHR DR: Shamar Abreu ORDERED: SURG PATH LVL 6 COPIES TO: Shamar Abreu [facility] [address] [place] [address] [place] [id number] [facility] [address] [address] HISTOLOGY: TISSUE ID BLK PCS CESAR LEV PROCEDURE DISPOSITION ____ ___ ___ ___ SIGMOID COLON A 1-151 PROCEDURES: SURG PATH LVL 6 (01/01/19) TISSUES: A. SIGMOID COLON - SIGMOID COLON AND ANASTOMATIC COLON RINGS CLINICAL HISTORY COLON RECTAL CANCER -C18.9 CPT CODES CPT CODE(S): 80722 , , , , , , FINAL DIAGNOSIS Colon, sigmoid, anastomotic donuts, partial colectomy: MODERATELY DIFFERENTIATED COLORECTAL ADENOCARCINOMA, 6 CM GREATEST DIMENSION 7 LYMPH NODES POSITIVE FOR METASTATIC CARCINOMA (7/10) MARGINS NEGATIVE CONTINUED ON NEXT PAGE RUN DATE: 01/06/19 [facility] - LAB *LIVE* PAGE 2 RUN TIME: 1652 Specimen Inquiry RUN USER: INTERFACE SPEC #: [id number]:[id number] PATIENT: RACHAEL OQUENDO #[id number] (Continued) GROSS DESCRIPTION Sigmoid colon and anastomotic [...] proximal 1/3 of the tumor occupies whole circu mference of the colon and in the distal 2/3 the tumor spares 0.9 cm of the colonic circumference and the lumen is narrowed to approximately 0.3 cm in diameter. The proximal colon is dilated. The remainder of the mucosa is unremarkable. There are extensive adhesions in the peritoneal layer with mesen wendy. The mesentery is thoroughly examined and multiple/more [...] A3 Entire circumference of distal margin A4-A5 Payroll Consultant sections of the lesion A6 Tumor with normal mucosa of proximal margin A7 Tumor with normal mucosa of closest distal margin A8 Normal mucosa A9 Payroll Consultant sections of largest anastomotic ring A10 Payroll Consultant sections of second an astomotic ring A11 Payroll Consultant sections of mesentery A12-A14 Payroll Consultant sections of mesentery with possible matted lymph nodes A15-A20 Entire lymph nodes, one lymph node each A21 Two lymph nodes A22 Two lymph nodes, serially sectioned A23 Three lymph nodes Grossing performed at [facility] Pathology, [address] [facility], [address], [place], [place] [address]. Chief Ophthalmic Technician: Hany Raissa, M.D. MICROSCOPIC DESCRIPTION Sigmoid colon and anastomotic colon rings. Sections demonstrate colonic mucosa. A mass with infiltrating neoplastic glands identified. The glands penetrate through the muscularis to involve the serosa. Lymphovascular invasion is identified. Sections of mesentery demonstrate tumor involving soft tissue. Lymph nodes are identified. Metastatic carcinoma is present in 7 lymphnodes. A total of 10 lymph nodes are identified.The carcinoma CONTINUED ON NEXT PAGE --------- ---RUN DATE: 01/06/19 [facility] - LAB *LIVE* PAGE 3 RUN TIME: 1652 Specimen Inquiry RUN USER: INTERFACE -- SPEC #: R [facility]:[id number] PATIENT: RACHAEL OQUENDO #[id number] (Continued) MICROSCOPIC DESCRIPTION (Continued) demonstrates moderately differentiated [...] lymph nodes: pN2b Signed SIGNATURE ON FILE MylesBull M 01/06/19 1652 ----- ------- END OF REPORT GLUCOSE BEDSIDE [id number] 17:20:00* Test Item Value Reference Range Interpretation Comme nts GLUCOSE BEDSIDE TESTING (minerva t code = GLUBED) 103 mg/dL 70-110 N GLUCOSE BEDSIDE KOMDBPU7292-71-20 11:28:00* Test Item Value Reference Range Interpretation Comme nts GLUCOSE BEDSIDE TESTING (minerva t code = GLUBED) 87 mg/dL 70-110 N GLUCOSE BEDSIDE [id number] 07:23:00* Test Item Value Reference Range Interpretation Comme nts GLUCOSE BEDSIDE TESTING (minerva t code = GLUBED) 108 mg/dL 70-110 N GLUCOSE BEDSIDE [id number] 20:29:00* Test Item Value Reference Range Interpretation Comme nts GLUCOSE BEDSIDE TESTING (minerva t code = GLUBED) 99 mg/dL 70-110 N GLUCOSE BEDSIDE [id number] 16:28:00* Test Item Value Reference Range Interpretation Comme nts GLUCOSE BEDSIDE TESTING (minerva t code = GLUBED) 84 mg/dL 70-110 N GLUCOSE BEDSIDE [id number] 11:30:00* Test Item Value Reference Range Interpretation Comme nts GLUCOSE BEDSIDE TESTING (minerva t code = GLUBED) 106 mg/dL 70-110 N GLUCOSE BEDSIDE [id number] 07:38:00* Test Item Value Reference Range Interpretation Comme nts GLUCOSE BEDSIDE TESTING (minerva t code = GLUBED) 120 mg/dL 70-110 H CBC W/AUTO [id number] 06:24:00* Test Item Value Reference Range Interpretation Comme nts WHITE BLOOD CELL (test code = WBC) 10.6 K/mm3 3.5-11.0 N RED BLOOD CELL (test code = RBC) 4.06 M/mm3 4.70-6.10 L HEMOGLOBIN (test code = HGB) 10.4 G/DL 12.3-15.9 L HEMATOCRIT (test code = HCT) 32.2 % 35.8-46.7 L MEAN CELL VOLUME (test code = MCV) 79.3 Fl 86.3-98.9 L MEAN CELL HGB (test code = MCH) 25.6 pg 28.9-34.4 L MEAN CELL HGB CONCETRATION ( test code = MCHC) 32.3 G/DL 32.1-34.5 N RED CELL DISTRIBUTION WIDTH (test code = RDW) 16.4 SD 11.5-14.5 H PLATELET COUNT (test code = PLT) 221.0 K/mm3 150-450 N MEAN PLATELET VOLUME (test c ode = MPV) 12.20 fL 7.0-9.6 H NEUTROPHIL % (test code = NT%) 73.0 [...] K/mm3 0.0-0.2 N MANUAL DIFF REQUIRED (test c ode = MDIFF) NO DIFF/SCN CRITERIA GLUCOSE BEDSIDE [id number] 21:45:00* Test Item Value Reference Range Interpretation Comme nts GLUCOSE BEDSIDE TESTING (minerva t code = GLUBED) 135 mg/dL 70-110 H BASIC METABOLIC [id number] 18:20:00* Test Item Value Reference Range Interpretation Comme nts SODIUM (test code = NA) 142 mmol/L 134-147 N POTASSIUM (test code = K) 4.2 mmol/L 3.4-5.0 N CHLORIDE (test code = CL) 108 mmol/L 100-108 N CARBON DIOXIDE (test code = CO2) 25 mmol/L 21-32 N ANION GAP (test code = GAP) 9.0 GAP calc 4.0-15.0 N GLUCOSE (test code = GLU) 140 MG/DL 70-110 H BLOOD UREA NITROGEN (test code = BUN) 16 MG/DL 7-18 N GLOMERULAR FILTRATION RATE (test code = GFR) >=60 max estimate estGFR >60 CREATININE (test code = CREAT) 0.9 MG/DL 0.8-1.3 N CALCIUM (test code = CA) 8.1 MG/DL 8.5-10.1 L [id number] 18:20:00* Test Item Value Reference Range Interpretation Comme nts PHOSPHOROUS (test code = PHOS) 3.2 MG/DL 2.5-4.9 N [id number] 18:20:00* Test Item Value Reference Range Interpretation Comme nts MAGNESIUM (test code = MAG) 1.7 MG/DL 1.8-2.4 L GLUCOSE BEDSIDE [id number] 16:54:00* Test Item Value Reference Range Interpretation Comme nts GLUCOSE BEDSIDE TESTING (minerva t code = GLUBED) 160 mg/dL 70-110 H GLUCOSE BEDSIDE [id number] 14:29:00* Test Item Value Reference Range Interpretation Comme nts GLUCOSE BEDSIDE TESTING (minerva t code = GLUBED) 136 mg/dL 70-110 H GLUCOSE BEDSIDE [id number] 07:31:00* Test Item Value Reference Range Interpretation Comme nts GLUCOSE BEDSIDE TESTING (minerva t code = GLUBED) 125 mg/dL 70-110 H MRI Knee Right Wo ContMRI Knee Right Wo Cont Notes Date/Time Note Provider Source 2023-07-24 08:26:56 TlcLraC/kJeTD7Tshvje lSzZV0eg9l+SQUe QNTW4711lEhoDdKwV/jw29NgVOLji0657-1 07-24T08:26:56 Chief Complaint Patient presents with [place]cology [place] [address]-2Eiidr KaxrZZ5699-13-47F90:27:17Nurse NoteTXT1.2.840.602054.1.13.131.2.7. 2.002245|[id number] for patient oewk35725-4Illmp NoteLNRogers Memorial Hospital - [facility]conom[place] [place] Children's HospitalTXTX7702577025US [place]0241-80-57I29:27:171.2.840.923095 .1.72.3.15|1.2.840.164967.1.13.131. 2.7.2.727879_366756795 [facility] 2023-07-01 14:20:33 nLrX8sTGpuUYJfnwdThc 683lNfaHEEe4Wur Dd2c84fzzwDVA7pIuGmQki7OzpPZ97625-9 4:20:33 Patient is here for 4 month follow up. VSS 08457-8Dkctj DcdnPR5148-89-20M57:20:47Nurse NoteTXT1.2.840.826189.1.13.131.2.7. 2.523987|[id number] for patient lson68494-3Uuspf MldcFR552193758Gvplx [facility] [place] Children's HospitalTXTX7702577025US CY8517-33-98J47:20:471.2.840.885129 .1.72.3.15|1.2.840.973172.1.13.131. 2.7.2.727879_362726968 Saumya Amos [facility] 2019-01-18 12:58:00 ETtklrfnohw598587865 DKRPQkj4g9FF9mk MKyD1UblA0W7LoHt/Cristela/mglt4oD9FvvM y1X9thymlxJFl7324-04-96F65:58:54151 1-[address] [address] PATIENT NAME: RACHAEL OQUENDO ADMIT DATE: 01/14/19ACCOUNT NO: [id number] ROOM NO: AGE: 58 REPORT TYPE: OPERATIVE REPORT SEX: M ADMITTING PHYSICIAN: ATTENDING PHYSICIAN: Kevin Rollins MD OPERATION DATE: 01/14/2019 PREOPERATIVE DIAGNOSIS: Stage III colon cancer in need for long-term centralvenous access. POSTOPERATIVE DIAGNOSES:1. Stage III colon cancer in need for long-term central venous access.2. Status post ultrasound-guided placement of a right internal fszoonrZqtz-W-Wwov placement. PROCEDURE PERFORMED: Ultrasound-guided placement of the right internal gdugzpoBfql-G-Saxr and fluoroscopic interpretation. SURGEON: Kevin Rollins MD. SECURITY CHECKER: None. ANESTHESIA: General, LMA plus local. INDICATIONS FOR PROCEDURE: Mr. Oquendo is a 58-year-old gentleman who wasrecently diagnosed with stage III colon cancer who is in need of long-termcentral venous access for chemotherapy. NARRATIVE OF PROCEDURE: Prior to the procedure, the risks, benefits, andalternatives of the procedure were explained to the patient and the patient didprovide informed consent. After obtaining the informed consent, the patient wastaken back to the operating room and positioned on the OR table in supineposition. A time-out was then performed by all participating parties and agreedupon as being correct. The patient did receive perioperative antibiotics withinone hour of skin incision. The patient did have SCDs on and functioning priorto induction of anesthesia. All participants in the operation were dressed inappropriate surgical attire including hat, mask, gloves, gown, eye protection,and shoe covers. The patient was then induced under general anesthesia and LMAwas placed. The patient was then repositioned with a shoulder roll placedtransversely behind his shoulders to allow for slight hyperextension of theneck. The patient's chest was then prepped by clipping the excess hair withclippers and removing the loose hair with tape. Then, using the ultrasoundprobe, the right internal jugular vein was evaluated for patency and found tohave no evidence of thrombosis or occlusion. At this time, the patient's rightneck and chest was then prepped with ChloraPrep and given sufficient time to dryprior to draping with surgical towels and sterile blue drapes. Then, using theultrasound in a sterile ultrasound probe cover, the right internal jugular vein PATIENT NAME: RACHAEL OQUENDO was identified and the area overlying the skin was anesthetized with 0.25%Marcaine. Then, using an introducer needle and syringe, the skin was puncturedand the needle was advanced to the lumen of the internal jugular underultrasound guidance. Upon entry into the lumen, the plunger of the syringe wasaspirated and dark venous-appearing blood was returned. At this point, thesyringe was disconnected leaving the introducer needle in place. Then, theguidewire was passed into the lumen of the vessel through the introducer needle. Then, a small stab incision was made at the base of the introducer needle andthe skin in preparation for passage of the catheter and subsequent to that. Then, the introducer needle was removed leaving the guidewire in place. Theguidewire was then clamped to the drapes while attention was turned to thepatient's right chest wall for creation of a pocket for the port. At this time,using local anesthetic, the area was infiltrated on the patient's right chestwall for local pain control. Then, a transverse incision was made with a#15-scalpel. The dissection was carried through the dermis into thesubcutaneous tissue using electrocautery Bovie. Hemostasis was achievedconcurrently throughout the dissection using electrocautery Bovie. Aftercreation of a subcutaneous pocket inferior to the incision using hemostat clampsand the electrocautery Bovie, the catheter was connected to the subcutaneoustunneler. Then, the catheter was measured with the assistance of fluoroscopicimaging to have the catheter in the superior vena cava at the junction with theright atrium. After probably measuring the catheter was cut to size and thentunneled from the chest wall subcutaneously to the skin incision adjacent to thewire. After successfully tunneling the catheter, a dilator and sheath werepassed over the guidewire into the lumen of the internal jugular vein. Thedilator was removed leaving the sheath in place and the guidewire was alsoremoved. Then, the catheter was then passed into the sheath into the lumen ofthe internal jugular vein and then the sheath was peeled away. After peelingaway the sheath leaving the catheter in place, fluoroscopic imaging was used toappropriately withdrawal the catheter to have proper placement in the superiorvena cava. After properly locating the catheter tip at the junction of theatrium and superior vena cava, the mesh was further cut to size and clamped witha hemostat to prevent introduction of air. After cutting the catheter to size,it was connected to the subcutaneous port and the port was then placed into thepocket inferior to the chest wall incision and secured in place with 2-0Prolene. After securing the port in place, the port was accessed through theskin using a Morris needle and I was able to successfully aspirate, afterunclamping the catheter, I was able to successfully aspirate blood withoutdifficulty. The catheter was then flushed with approximately 10 mL ofheparinized saline locking. Then, the chest wall incision and neck incisionswere then closed using 4-0 Vicryl. After closure of the skin, the chest wallwas then infiltrated with 0.25% Marcaine for further local pain control. Afteranesthetizing the chest wall, the skin was then cleaned with normal saline andpatted dry prior to dressing. Both neck and chest wall incision with a surgicaladhesive in the form of Dermabond. The patient tolerated the procedure wellwith no immediate complications. SPECIMENS REMOVED: None. IMPLANTS: An 8-Romanian PowerPort catheter. DRAINS: None. ESTIMATED BLOOD LOSS: Less than 10 mL. PATIENT NAME: RACHAEL OQUENDO DISPOSITION: At the conclusion of the case, the patient was awakened fromanesthesia and LMA was removed. The patient was transferred to the PAC[facility] for a postoperative chest x-ray to be discharged home per protocol. Dictated By: Kevin Rollins MD WT: OP:LDANIELLE/GOVIND/REBECCADD: 01/18/2019 12:58:34DT: 01/18/2019 13:54:24Conf#: [id number]/DID#: [id number] Authenticated by Kevin Rollins MD On 02/02/2019 01:34:33 PM at 1334 PATIENT NAME: RACHAEL OQUENDO dtbphl4949-15-16C17:54:00L.PRB15713 311-0042AVAvailable for patient bmcfQHQSFOYQAZVLQL4724-21-17W26:35: 09 [facility] 2019-01-14 17:04:00 LQjnagwpioz7106239fX YJOQovDlXgcQ4P5 sc6eb1Q0tGBM5mOl3apkCKR/RSinp5BvW45 m5YFEDPsvcCu5229-74-26Y11:04:00 [facility] ([facility])Post Anesthesia EvaluationREPORT#:[id number] REPORT STATUS: SignedDATE:01/14/19 TIME:1704 PATIENT: RACHAEL OQUENDO UNIT #: [id number]#: [id number] ROOM/BED:: 62 AGE: 58 SEX: M ATTEND: Kevin Rollins [facility] AUTHOR: Filomena Carvalho MD * ALL edits or amendments must be made on the electronic/computer document * GeneralPost-op: post surgery rounds Post Anesthesia Evaluation Anes. changes from pre-op evalORM Surgeries: Surgery Date and Time: 01/14/2019 0800 Primary Procedure: PORT-A-CATH PLACEMENT Anesthetic: general LMADate: 01/14/19Level of consciousness: patient awake, able to answer questions, participate in this eval.Vital signs:Vital Signs: Date Time Temp Pulse Resp B/P B/P Pulse O2 O2 Flow FiO2 Mean Ox Delivery Rate 01/14 1103 59 18 121/73 97 Room air 03/07 1036 36.4 54 16 109/61 96 Room air 03/ 1035 36.2 56 16 109/66 96 Room air 03/07 1020 59 16 110/64 98 Room air 03/07 1015 56 16 116/66 100 03/07 1010 57 13 114/66 100 Room air 03/07 1005 58 13 110/67 100 Simple 10.462279 mask 03/07 1000 57 12 109/61 100 Simple 10.891481 mask 03/07 0955 61 15 107/61 100 Simple 10.607156 mask 03/07 0950 54 11 104/56 99 Simple 10.555418 mask /07 0946 Simple 10.949198 mask 03/07 0945 55 11 111/55 99 03/07 0940 36.3 54 12 124/65 99 Simple 10.301901 mask 03/07 0711 36.5 54 18 103/63 96 Room air Cardiovascular: CV system stable, vital signs stableRespiratory/Airway: respiratory system stable, maintains without supportPain: adequately controlledHydration: adequate, euvolemicTemp status: greater than 96.8F, normothermicPresence of N/V: noAnesthesia complications: noOther changes requiring f/u: noneConclusions: no apparent anes. issues, outpts eval prior DC home at 1705 RPT #: [id number] OF REPORT CLClinical lywu5436-73-73I38:04:00L.BCYE870538 07-0138AVAvailable for patient jrreWUFHFCELEJZODD2112-42-56W56:04: 52 [facility] 2019-01-14 09:51:00 IStxskkrwqp1333430M9 Dz+0GpTPHkLZLot QqM/XVYMWox5LgaDQrLL8bEJRpFkVwP8Xkm pFCxnVAzVZtz7762-59-55E08:51:00 [facility] ([facility])Brief Discharge Note w/Med RecREPORT#:[id number] REPORT STATUS: SignedDATE:01/14/19 TIME:950 PATIENT: RACHAEL OQUENDO UNIT #: [id number]#: [id number] ROOM/BED:: 62 AGE: 58 SEX: M ATTEND: Kevin Rollins [facility] AUTHOR: Kevin Rollins MD * ALL edits or amendments must be made on the electronic/computer document * Med Rec Med RecDischarge meds:Continue taking these medications:DIVALPROEX ER (DEPAKOTE ER) 500 MG TAB.ER.24H 1,000 [...] ORAL DAILY. ACETAMINOPHEN/CODEINE (TYLENOL WITH CODEINE #3 300/30 MG) 1 TAB TAB 1-2 TABLET ORAL Q4-6HR PRN as needed for PAIN Qty = 40 Instructions: TAKE WITH FOOD. IBUPROFEN (ADVIL) 200 MG TAB 400 MILLIGRAM ORAL THREE TIMES DAILY WITH MEALS. Qty = 21 Instructions: TAKE WITH FOOD. ASPIRIN (ASPIRIN) 81 MG TAB.CHEW 81 MILLIGRAM ORAL DAILY. Start taking the following new medications:ACETAMINOPHEN (TYLENOL) 500 MG TAB 500 MILLIGRAM ORAL EVERY 6 HOURS NEEDED. as needed for pain not to ektvby6443 MG per day Qty = 10 No Refills ObjectiveVS/I OLast Documented: Result Date Time O2 Delivery Simple mask 01/14 946 O2 Flow Rate 10.975672 01/14 946 Pulse Ox 96 01/14 711 B/P 103/63 01/14 711 Temp 97.7 01/14 711 Pulse 54 01/14 711 Resp 18 01/14 711 Brief Discharge Note w/Med RecPCP:PCP: Shamar Abreu Problem List/A P: 1. Port-A-Cath in place 2. Colon cancer Free Text A P:58 yo M s/p right IJ port placementDischarge to: homeDischarge diagnosis:Same as above.Activity: as tolerated, light duty, no liftingDiet: regularWound/dressing care: Clean wound daily, OK to shower tomorrowPt. condition on discharge: stablePrescriptions: e-prescribeAdditional instructions:Call if having fever greater t conn 101.5 or incisional issuesReturn to work/school: NoFollow-up appointment(s):10 days at 0953 RPT #: [id number] OF REPORT DSDischarge fxhgkwa9951-66-27I63:51:00L.HBTJ269 [address]MVOeulfzkss for patient gruoDMUCHDQWQVUYRV6455-77-62S57:52: 50 [facility] 2019-01-14 09:43:00 YZmzlnhdnaq1729284LW i6rVgGJesdfDdoD taR7/O15nJZALNU7adVrKAYozhMzemeg2g/ cxsIqO4CuPxS9975-90-45J72:43:00 [facility] ([facility])Bedside Procedure NoteREPORT#:[id number] REPORT STATUS: SignedDATE:01/14/19 TIME:0943 PATIENT: RACHAEL OQUENDO UNIT #: [id number]#: [id number] ROOM/BED:: 62 AGE: 58 SEX: M ATTEND: Kevin Rollins [facility] AUTHOR: Kevin Rollins MD * ALL edits or amendments must be made on the electronic/computer document * Bedside Procedure Note Bedside Procedure NoteStart date: 01/14/19Start time: 0845Pre-procedure diagnosis:Need for long-term centeral venous accessPost-procedure diagnosis:Same as aboves/p right IJ port-a-cath placement Procedure performed: Right internal jugular port-a-cath placement Fluoroscopic interpretationPerformed by:Dr. Kevin Rollins MDAssistant(s): noneIndications:58 yo M with stage 3 colon cancer in need of long-term chemotherapy.Time out completed: YesDiscussed risks, benefits, alt tx: yesConsent obtained: yesConsent obtained from: patientAnesthesia: general, local - bupivacaineObserver name:Name of independent trained observer: Insertion bundle: cap, full body drape, hand hygiene, mask, sterile gloves, sterile gown, chlorhexidine/alcoholTechnique/Proc edure:See dictation for full details.Specimens removed/altered: noneImplant(s): 8 Fr power portComplications: noneEstimated blood loss in ml's: 10Findings:See dictation for full details.Disposition: tolerated proc. well, plan to D/C home at 0947 [facility] #: [id number] OF REPORT PNProcedure ypsw9585-84-32A22:43:00L.XVKJ191622 AVAvailable for patient thutQAOIYXKYKXSFRJ1843-56-26W50:47: 20 [facility] 2019-01-01 22:43:00 DJvarpuvjua3475930/x dGRfNQmp56djKY+ JLXqd0YlJQ+ljYGIrCOI5H1IzXy9fzueHA5 ec4Bsm2/Y6WF4326-66-82M63:43:00 [facility] ([facility])Brief Discharge Note w/Med RecREPORT#:[id number] REPORT STATUS: SignedDATE:01/01/19 TIME:2242 PATIENT: RACHAEL OQUENDO UNIT #: [id number]#: [id number] ROOM/BED: EllenB139-5OAY: 62 AGE: 58 SEX: M ATTEND: Kevin Rollins MDADM AUTHOR: Kevin Rollins MD * ALL edits or amendments must be made on the electronic/computer document * Med Rec Med RecDischarge meds:Continue taking these medications:ENALAPRIL (VASOTEC) 20 MG TAB DIVALPROEX ER (DEPAKOTE [...] ORAL DAILY. Start taking the following new medications:ACETAMINOPHEN/CODEINE (TYLENOL WITH CODEINE #3 300/30 MG) 1 TAB TAB 1-2 TABLET ORAL Q4-6HR PRN as needed for PAIN Qty = 40 No Refills Instructions: TAKE WITH FOOD. IBUPROFEN (ADVIL) 200 MG TAB 400 MILLIGRAM ORAL THREE TIMES DAILY WITH MEALS. Qty = 21 No Refills Instructions: TAKE WITH FOOD. ObjectiveVS/I OLast Documented: Result Date Time Pulse Ox 98 01/02 161 B/P 124/83 01/02 161 B/P Mean 96.7 01/02 161 O2 Delivery Room air 01/02 161 Temp 98.6 01/02 1619 Pulse 69 01/02 1619 Resp 18 01/02 1619 O2 Flow Rate 10.392873 12/31 1430 Brief Discharge Note w/Med RecPCP:PCP: Shamar Abreu Problem List/A P: 1. History of low anterior resection of rectum 2. Colon cancer Free Text A P:58 yo M s/p lap LAR [facility]char diagnosis:Same as aboveActivity: as tolerated, light duty, no liftingDiet: diabeticWound/dressing care: Clean wound dailyPt. condition on discharge: stablePrescriptions: f-oldjulcayTfxzwn-zb appointment(s):7-10 days at 1112 RPT #: [id number] OF REPORT DSDischarge mrgwwpq1299-97-91V04:43:00L.EYNU405 [address]XIXjjzfondg for patient cninRSMGMPOOLFTCFF4296-26-20T90:12: 05 [facility] 2019-01-01 13:36:00 GKuaevnlgpu6772535Xt 6yySBkXmslKqRUd T7n6KX094BkBkXIhYfM6Ygj+Ss9iLosI8ni db8h2IKfm6ei5399-14-17D36:36:00 [facility] Progress NoteREPORT#:[id number] REPORT STATUS: SignedDATE:01/01/19 TIME:1336 PATIENT: RACHAEL OQUENDO UNIT #: [id number]#: [id number] [address] AGE: 58 SEX: M ATTEND: Kevin Rollins MDADM AUTHOR: Kevin Rollins MD * ALL edits or amendments must be made on the electronic/computer document * GeneralDate of surgery: 12/31/18Status post:Laparoscopic LAR SubjectiveChief Complaint:NoneHPI:58 yo M s/p Lap LAR POD#1Patient reports:Yes: abdominal pain, ambulating, feeling better, pain, pain controlled, tolerating diet. No: complaints, bowel movement, fever, flatus, nausea, vomiting. Objective Physical ExamVS/I OLast Documented: Result Date Time Pulse Ox 96 01/01 1109 B/P 119/72 01/01 1109 B/P Mean 87.9 01/01 1109 O2 Delivery Room air 01/01 1109 Temp 99.0 01/01 1109 Pulse 57 01/01 1109 Resp 18 01/01 1109 O2 Flow Rate 10.991218 12/31 1430 Vital Signs Date Temp Pulse Resp B/P B/P Mean Pulse Ox FiO2 12/31-01/01 97.5-99.6 57-80 9-19 101-151/61-94 74.5-87.9 94-100 24 hour I O ending at 0700: 01/01 0700 12/31 1900 Intake Total 200.00 Output Total Balance 200.00 Intake, IV 200.00 Medications:Active Meds + DC'd Last 24 HrsMetoprolol Succinate 50 MG DAILY PO Pantoprazole 40 MG DAILY PO Simvastatin 40 MG BEDTIME PO Atenolol 12.5 MG BID PO Metformin HCl 500 MG BID PO Enalapril Maleate 20 MG DAILY 1400 PO Divalproex Sodium 1,000 MG DAILY PO Lactated Ringer's 1,000 ML .[id number] IV Enoxaparin Sodium 40 MG Q24H SUBQ Influenza Virus Vaccine 60 MCG ASDIR IM Hydromorphone HCl 0.2 MG Q3H PRN PRN IV Lactated Ringer's 1,000 ML .[id number] IV (DC) Ondansetron HCl 4 MG Q6H PRN PRN IV Sodium Chloride 10 ML ASDIR IV Lactated Ringer's 2,000 ML .STK-MED ONE IV (DC) Acetaminophen 650 MG PACU ONCE PRN PO (DC) Hydrocodone Bitart/Acetaminophen 1 TAB PACU ONCE PRN PO (DC) Hydrocodone Bitart/Acetaminophen 1 TAB PACU ONCE PRN PO (DC) Hydromorphone HCl 1 MG PACU Q15MIN PRN PRN IV (DC) Labetalol HCl 5 MG PACU Q10MIN PRN PRN IV (DC) Lactated Ringer's 1,000 ML .Q24H IV (DC) Meperidine HCl 12.5 MG PACU ONCE PRN IV (DC) Morphine Sulfate 2 MG PACU Q10MIN PRN PRN IV (DC) Ondansetron HCl 4 MG PACU ONCE PRN IV (DC) Ketorolac Tromethamine 30 MG Q8H IV Hydromorphone HCl 0.5 MG Q3H PRN PRN IV Lactated Ringer's 1,000 ML PREOP ASDIR IV (DC) Cefazolin Sodium 3 GM PREOP ASDIR IV (CKD) Sodium Chloride 150 ML General appearance: alert, awakeWound/incision: Location:abdomen Site condition: dressing clean dry, dressing intact, incision intactHEENT: anicteric, atraumatic, normal conjunctiva/sclera, normocephalicRespiratory: aerating well, symmetric expansion, no distressAbdomen: tenderness, soft, no distention, no guardingGenitourinary - Male: no foleyExtremities: moves allNeuro/WAISTLINE JOINER LOCKSTITCH: alert, normal speechSkin: dry, intact, normal color, normal temperature ResultsFindings/Data:Laboratory Tests 01/01/19 0500:[Embedded Image Not Available] 12/31/18 1740:[Embedded Image Not Available]Laboratory Tests 01/01 01/01 12/31 12/31 12/31 1110 0716 2130 1740 1636Chemistry Sodium (134 - 147 mmol/L) 142 Potassium (3.4 - 5.0 mmol/L) 4.2 Chloride (100 - 108 mmol/L) 108 Carbon Dioxide (21 - 32 mmol/L) 25 Anion Gap (4.0 - 15.0 GAP calc) 9.0 BUN (7 - 18 MG/DL) 16 Creatinine (0.8 - 1.3 MG/DL) 0.9 Glomerular Filtr Rate (>60 >=60 max estimateestGFR) Glucose (70 - 110 MG/DL) 140 H POC Glucose (70 - 110 mg/dL) 106 120 H 135 H 160 H Calcium (8.5 - 10.1 MG/DL) 8.1 [...] (Auto) (20.5 - 51.1 %) 17.5 L Nolan % (Auto) (1.7 - 9.3 %) 9.3 Eos % (Auto) (0.0 - 6.0 %) 0.1 Baso % (Auto) (0.0 - 2.0 %) 0.1 Neut # (Auto) (1.8 - 7.6 K/mm3) 7.73 H Lymph # (Auto) (0.6 - 3.0 K/mm3) 1.9 Nolan # (Auto) (0.2 - 1.5 K/mm3) 1.0 Eos # (Auto) (0.0 - 0.4 K/mm3) 0.0 Baso # (Auto) (0.0 - 0.2 K/mm3) 0.0 Add Manual Diff (CRITERIA DIFF/SCN) NO Results: labs reviewed, vital signs stable, current med profile rev'd Treatment Prophylaxis Treatment ProphylaxisFoley documentation:The data below has been imported from nursing documentation. Any exceptions havebeen noted below under Provider comments. Nursing Documentation Date jemma inserted: 12/31/18 Date jemma discontinued: 01/01/19 Provider comments: [] Diagnosis, Assessment PlanProblem List/A P: 1. History of low anterior resection of rectum 2. Colon cancer Free Text A P:58 yo M s/p lap low anterior resection POD#11. Awaiting return of bowel function to advance diet.2. Resume home meds3. Pain management4. Encourage ambulation.5. Pathology pending. at 1341 RPT #: [id number] OF REPORT PRProgress Pghn5706-07-06R36:36:00L.HZQA530210 0098AVAvailable for patient fslpIHSMRYZSJYZCEW0295-33-18S64:40: 56 [facility] 2018-12-31 15:07:00 [id number] 6Jk2nuwtDELpg3u 5cK4xRgsteZs2xAolMOj0BUjYSOIv7Y1HxB mVgeK0nRD9i97870-65-89W13:07:368062 -0055 [place] [address] PATIENT NAME: RACHAEL OQUENDO ADMIT DATE: 12/31/18ACCOUNT NO: [id number] ROOM NO: [facility] AGE: 58 REPORT TYPE: OPERATIVE REPORT SEX: M ADMITTING PHYSICIAN: Kevin Rollins MD ATTENDING PHYSICIAN: Kevin Rollins MD OPERATION DATE: 12/31/2018 PREOPERATIVE DIAGNOSIS: Colon cancer. POSTOPERATIVE DIAGNOSES: 1. Colon cancer.2. Status post laparoscopic low anterior resection. PROCEDURE PERFORMED: Laparoscopic low anterior resection. SURGEON: Kevin Rollins MD SECURITY CHECKER: LOAN Camargo ANESTHESIA: General endotracheal anesthesia plus local. INDICATIONS FOR PROCEDURE: Mr. Oquendo is a 58-year-old gentleman, who presentedto my office with distal colon cancer found on colonoscopy. NARRATIVE OF PROCEDURE: Prior to the procedure, the risks, benefits, andalternatives of procedure were explained to the patient and the patient didprovide informed consent. After obtaining the informed consent, the patient wastaken back to the operating room and positioned on the OR table in supineposition. A time-out was then performed by all participating parties and agreedupon as being correct. The patient did receive perioperative antibiotics withinone hour of skin incision. The patient did have SCDs on and functioning priorto induction of anesthesia. All participants in the operation were dressed inappropriate surgical attire including hat, mask, gloves, gown, eye protection,and shoe covers. The patient was then induced under general anesthesia andintubated without complication. The patient's abdomen was then prepared byclipping the excess hair with clippers and removing the loose hair with tape. The patient was then repositioned into supine lithotomy using Shayne stirrups. The patient's abdomen was then prepared with ChloraPrep and given sufficienttime to dry prior to draping with surgical towels and sterile blue drapes. Theprocedure was begun by performing a digital rectal exam with a gloved indexfinger and finding a patulous anus with normal tone and no evidence of distalobstruction. Then, a rigid sigmoidoscopy was performed per anus toapproximately 15 cm. During the rigid sigmoidoscopy was noted that the patientdid have some soft brown stool present in the rectal vault. This was evacuatedwith the suction. After evacuation of the rectal vault, the proctoscope waswithdrawn without difficulty. Then, after scrubbing the intra-abdominal portionof this procedure was begun. The procedure was begun by making a transverse PATIENT NAME: RACHAEL OQUENDO incision in the suprapubic region with a #15 scalpel. The dissection wascarried through the dermis into the subcutaneous tissue using electrocauteryBovie. Dissection was carried to the anterior rectus sheath usingelectrocautery Bovie. Then, the rectus abdominis muscle was spread at themidline and the preperitoneal fat was dissected using electrocautery Bovie. Upon reaching the peritoneum, the peritoneum was opened using a Metzenbaumscissors. Once into the peritoneum under the protection of my index finger, theperitoneum was opened in a longitudinal fashion using electrocautery Bovie. After opening up the peritoneum, the GelPOINT base was introduced into theperitoneal cavity and snugged to the level of the skin. Then, the cap with 4working trocars in place was connected to the base and secured. After securingthe cap, insufflation was achieved. After achievement of pneumoperitoneumusing a 5-mm 30-degree laparoscope and camera, the peritoneal cavity was enteredand visually inspected. After visual inspection, attention was turned to theanterior abdominal wall for placement of a single working trocar at theumbilicus. After placement of 5-mm working trocar at the umbilicus, the camerawas repositioned to this trocar site. Then, attention was turned to the pelvisand left lower quadrant of the abdomen as the patient was repositioned inTrendelenburg with the left side elevated. After positioning the pelviccontents were evacuated from the pelvis using 2 atraumatic graspers. Afterevacuation of the small bowel from the pelvis the colon was followed to his mostdistal point to identify the tattoo che made by the endoscopist. Duringevaluation of the distal colon it was noted that there was indentation in theanterior surface of the colon that corresponded with the reported location ofthis low colonic mass. Distal to this port was the black ink from theendoscopist tattoo gio. At this point, attention was turned to the mesocolon at the level of the pelvic brim. Using the L-hook electrocautery, theperitoneum overlying the pelvic brim was opened in a longitudinal fashion. Then, using the L-hook the peritoneum was opened over the pelvic brim into thepelvis in a cephalic direction towards the blood supply. Then, using acombination of atraumatic grasper as well as a laparoscopic Kittner bluntdissection was performed through the mesocolon in the direction of the leftureter. The dissection was performed in an avascular plane, so minimal bloodloss and was incurred. After sufficient dissection the left ureter wasidentified and observed to see vermiculation. After appropriately identifyingthe left ureter, the blood supply was isolated in the form of the superiorrectal artery. After isolating the superior rectal artery a counterincision wasmade in the mesocolon using the LigaSure energy device. Then, using an Endo-GIAstapler 45 mm with a white vascular load the superior rectal artery was stapledand divided. After successfully dividing the superior rectal artery, thedissection was carried in a lateral direction to the white line of Toldt in aretrocolic fashion. After completion of the uipabv-li-moldvze direction, theatraumatic grasper and laparoscopic Kittner were withdrawn and the colon wasthen retracted in a medial fashion to expose the white line of Toldt. Then,using the LigaSure energy device, the white line of Toldt was dissected freefrom the lateral peritoneum. After dissecting the white line of Toldt, theprevious plane of dissection was encountered. Then, the dissection was carriedin a distal fashion along the white line of Toldt over the pelvic brim down intothe pelvis. The dissection was carried along the lateral wall of the colon tothe rectosigmoid junction. The dissection was carried down to the anteriorperitoneal reflection in the pelvis and across to the right side to completelyfree the specimen and colon from the peritoneal attachments. After completelydissecting the distal colon free in a circumferential manner, the mesorectalblood supply was dissected to the level of the colonic wall using the LigaSure PATIENT NAME: RACHAEL OQUENDO energy device. Then, the distal point of transection was identified and usingthe Endo-APOLONIA 45 mm with a blue load with 4 firings the proximal rectum anddistal colon was stapled and divided. After completely dissecting the distalcolon, the specimen was mobilized into the peritoneal cavity. Irrigation withthe suction case packer revealed no evidence of active bleeding. After evacuationof the irrigation from the pelvis, the colon was then extracorporealized throughthe GelPOINT base. Then, using a 30-mm TA stapler the proximal point ofdissection was identified and the blood supply to the mesocolon was dissectedusing LigaSure energy device up to that point. Then, the 30-mm TA was used tostaple the proximal point of dissection. Then, using a #10 scalpel the proximalsigmoid was divided. After division of the colon, the specimen was passed offto be sent to pathology for analysis. Then, the anvil for the EEA stapler 33 mmwas introduced into the distal colon and secured in place with pursestring PDSsuture. After securing the anvil in place, it was reintroduced back into theperitoneal cavity. After introduction of the anvil and distal colon back intothe peritoneal cavity, the insufflation was re-achieved after capping theGelPOINT. Then, using atraumatic grasper a test run of the length of theresidual colon was tested to see if the anastomosis would be under tension andit was found to be sufficient to be tension-free anastomosis. At this time, thepelvis was again irrigated with about 100 mL of saline and evacuated with thesuction case packer. Then, my membership assistant went below and perform successivedilations of the anus using a rectal and anal dilators up to 31 mm. Then, theEEA stapler with lubrication was introduced per anus gently and advanced to thelevel of the staple line in the proximal rectum. Then, the spike was introducedthrough the staple line of the proximal rectum under direct visualization. Then, I attached the anvil to the exposed spike until it snapped in place. Then, ensuring that the colon was properly align and free of tension the anvilwas retracted and seated against the stapler. After achieving the appropriatepressure in the green zone the staple was fired with a single firing. Afterfiring the stapler, the anvil was partially released to allow for removal of theEEA stapler per anus. After removal of the stapler, the anvil was fullyreleased and disconnected from the spike and the anastomotic rings were examinedand found to be 2 intact specimens. After observing the anastomotic rings, aleak test was then performed per anus by passage of a rigid proctoscope per anusdistal to the anastomosis and clamping of the descending colon proximal to theanastomosis and submerging the anastomosis under fresh saline in the pelvis. Two successful leak tests were performed after insufflation with the rigidproctoscope. After completion of the leak test the chamber was opened and allgas was evacuated prior to withdrawal of the rigid proctoscope. Then, theirrigation was evacuated from the pelvis. After evacuation of the irrigationfrom the pelvis, no evidence of active bleeding was observed. The patient wasthen placed back into neutral position prior to evacuation of all insufflation. The GelPOINT device was then removed and the one trocar at the umbilicus wasalso removed. Then, the Pfannenstiel incision was closed in a layered fashionstarting with the peritoneum, which was closed with running 0 Vicryl. Theperitoneum was then infiltrated with 0.25% Marcaine for local pain control. Themuscle was loosely reapproximated with interrupted 0 Vicryls in the midline. The anterior rectus sheath was then reapproximated with running #1 PDS. Theanterior rectus sheath was then infiltrated with 0.25% Marcaine for local paincontrol. Naman's fascia was then reapproximated using 0 Vicryl in a runningfashion. The skin was then infiltrated with 0.25% Marcaine for local paincontrol. The skin was then reapproximated with 4-0 Vicryl in a subcuticularfashion. The trocar site was also closed using 4-0 Vicryl in a subcuticularfashion. The skin was then cleaned with normal saline and patted dry prior to PATIENT NAME: RACHAEL OQUENDO dressing with surgical adhesive in the form of Skin Affix. The patienttolerated the procedure well with no immediate complications. SPECIMENS REMOVED: Sigmoid colon and anastomotic rings. IMPLANTS: None. DRAINS: None. ESTIMATED BLOOD LOSS: Less than 50 mL. DISPOSITION: At the conclusion of the case, the patient was awakened fromanesthesia and extubated without complication to be transported to the PACU infair condition to be admitted to the floor postoperatively for advancement ofdiet and await return of bowel function. Dictated By: Kevin Rollins MD WT: OP:L.JUVENTINO/GOVIND/REBECCADD: 12/31/2018 15:07:59DT: 12/31/2018 16:54:31Conf#: [id number]/DID#: [id number] Authenticated by Kevin Rollins MD On 01/05/2019 02:30:53 PM at 1431 PATIENT NAME: RACHAEL OQUENDO xoupnd3403-90-06B78:54:00L.[id number] [id number] for patient byepHPNQPCDBEUTPVC7203-25-45P78:30: 57 [facility] 2018-12-31 14:35:00 ITohnrqssij2275884Zi V3kk7opHi713tbl ndpd8aCEpY41te9n2Ygg46FDg28tQX/ktAt mx6/Nvo1DPr86616-57-24F44:35:00 [facility] ([facility])Bedside Procedure NoteREPORT#:[id number] REPORT STATUS: SignedDATE:12/31/18 TIME:1435 PATIENT: RACHAEL OQUENDO UNIT #: [id number]#: [id number] [address] AGE: 58 SEX: M ATTEND: Kevin Rollins AUTHOR: Kevin Rollins MD * ALL edits or amendments must be made on the electronic/computer document * Bedside Procedure Note Bedside Procedure NoteStart date: 12/31/18Start time: 844Pre-procedure diagnosis:Colon cancerPost-procedure diagnosis:Same as aboves/p lap low anterior resectionProcedure performed: Laparoscopic low anterior resectionPerformed by:Dr. Kevin Rollins, JASONssistant(s): Lucho Buckley, AIndications:58 yo M with a distal colon cancer.Time out completed: YesDiscussed risks, benefits, alt tx: yesConsent obtained: yesConsent obtained from: patientAnesthesia: general, local - bupivacaineInsertion bundle: cap, full body drape, hand hygiene, mask, sterile gloves, sterile gown, chlorhexidine/alcoholTechnique/Proc edure:See dictation for full details.Specimens removed/altered: Sigmoid colon and anastomotic ringsImplant(s): noneComplications: noneEstimated blood loss in ml's: 50Findings:See dictation for full details.Disposition: tolerated proc. well, return to floor at 1442 [facility] #: [id number] OF REPORT PNProcedure nhdj3414-41-34F12:35:00L.[id number] VAvailable for patient btggNDABCZUJGKCOML4803-06-79Y02:42: 23 [facility] 2018-12-31 13:56:00 IBqusnoxclr0907336BJ GAGHBYYZGs3m20W qCDj2fPglK7B4yYnT9WtRo1ayzjbuWnIiRV ZvZ23M7353FM6620-36-64Z58:56:00 [facility]Post Anesthesia EvaluationREPORT#:[id number] REPORT STATUS: SignedDATE:12/31/18 TIME:1356 PATIENT: RACHAEL OQUENDO UNIT #: [id number]#: [id number] [address] AGE: 58 SEX: M ATTEND: Kevin Rollins [facility] AUTHOR: Divina Crabtree CRNA * ALL edits or amendments must be made on the electronic/computer document * Post Anesthesia Evaluation Anes. changes from pre-op evalORM Surgeries: Surgery Date and Time: 12/31/2018 0800 Primary Procedure: LAPAROSCOPIC LOW ANTERIOR COLON Anesthetic: GETADate: 12/31/18Level of consciousness: patient awake, able to answer questionsVital signs:Vital Signs: Date Time Temp Pulse Resp B/P B/P Pulse O2 O2 Flow FiO2 Mean Ox Delivery Rate 12/31 1345 68 12 117/64 99 Simple 10.713779 mask 12/31 1340 37.6 74 12 116/64 100 Simple 10.840800 mask 12/31 0642 36.7 56 18 131/77 98 Room air 0.833751 Cardiovascular: no change, CV system stable, vital signs stableRespiratory/Airway: respiratory system stable, maintains without supportPain: adequately controlledHydration: adequateTemp status: normothermicPresence of N/V: noAnesthesia complications: noOther changes requiring f/u: noneConclusions: no apparent anes. issues at 1357 RPT #: [id number] OF REPORT CLClinical dhar2554-92-73R26:56:00L.[id number] 8AVAvailable for patient kilvEZDMGSUOYUJYAA9639-01-36Q96:57: 01 [facility] 2018-12-29 16:15:00 KQggumrcdqy2416063mR 5HcaMOb0NN0VfSK ZRF1VfIDeqRsZKO5JMI/REFEKyGSyiHcVyT y0tscHDvLqs09972-76-98R17:15:001973 -0029 [facility] [address] [place] [address] PATIENT NAME: RACHAEL OQUENDO ADMIT DATE: ACCOUNT NO: [id number] ROOM NO: AGE: 58 REPORT TYPE: eELECTROCARDIOGRAM SEX: M ADMITTING PHYSICIAN: Kvein Rollins MD ATTENDING PHYSICIAN: Kevin Rollins MD Order:[id number] Reason : PRE OP Test Date/Time Stamp:FriDec 29 2018 16:15:14Blood Pressure : / mmHGVent. Rate : 063 BPM Atrial Rate : 063 BPM P-R Int : 160 ms QRS Dur : 088 ms QT Int : 450 ms P-R-T Axes : 028 030 027 degrees QTc Int : 460 ms Normal sinus rhythmNormal ECGNo previous ECGs availableConfirmed by DEEPIKA ROBLEDO MD ([id number]) on 12/30/2018 8:59:23 PM Referred By: Kevin Rollins Confirmed by:DEEPIKA ROBLEDO MD at 2059 PATIENT NAME: RACHAEL OQUENDO .CP [id number] for patient twexXVRFTNZUAWXJFF1819-96-13C73:59: 09 [facility]"
--- NOTE | 2024-01-24 20:59 | RAD REPORT ---
EXAM DESCRIPTION: RAD - Shoulder Left 2 View - 01/24/2024 8:49 pm CLINICAL HISTORY: PAIN COMPARISON: No comparisons FINDINGS: Mild AC joint degenerative changes are present. No fracture or dislocation.
--- NOTE | 2024-01-24 21:22 | EDPHYS ---
Physician Documentation [facility] Name: Taiwo Chery Age: 63 yrs Sex: Male : 1960 Arrival Date: 01/24/2024 Time: 19:57 Bed 12 Private MD: ED Physician Dave Lowe HPI: 01/23 21:04 This 63 yrs old Male presents to ER via Ambulatory with complaints of armpit kb swelling and painful. 21:06 Pt is a 63 year old male who presents for left shoulder pain that started 3 weeks ago kb and got worse 3 days ago. Denies injury or trauma. states she noticed a red rash under both armpits as well. Historical: - Allergies: 20:06 No Known Allergies; rv - PMHx: 20:06 chronic back pain; colon cancer-in remission; diabetes mellitus; Hypertensive disorder; rv - PSHx: 20:06 None; rv - Immunization history:: Adult Immunizations up to date. - Social history:: Smoking status: Patient denies any tobacco usage or history of. ROS: 21:04 Constitutional: As per HPI kb Exam: 21:04 Constitutional: This is a well developed, well nourished patient who is awake, alert, kb and in no acute distress. Head/Face: Normocephalic, atraumatic. ENT: Moist Mucous membranes Cardiovascular: Regular rate Respiratory: Respirations even and unlabored. No increased work of breathing. Talking in full sentences Neuro: Awake and alert, GCS 15, oriented to person, place, time, and situation. Moves all extremities. Normal gait. 21:04 Musculoskeletal/extremity: Extremities: grossly normal except: noted in the anterior aspect of left shoulder: decreased ROM, pain, ROM: limited active range of motion due to pain, Circulation is intact in all extremities. Sensation intact. 21:04 Skin: rash a moderate rash is noted, consistent with candidiasis, on the right axilla and left axilla, Vital Signs: 20:03 BP 131 / 76; Pulse 66; Resp 16; Temp 98; Pulse Ox 99% on R/A; rv MDM: 20:04 Patient medically screened. kb 21:05 Differential diagnosis: fracture, strain, arthritis, candidiasis, contact dermatitis. kb Data reviewed: vital signs, nurses notes. Historians other than the Patient: Spouse/Significant Other: . Counseling: I had a detailed discussion with the patient and/or guardian regarding the historical points, exam findings, and any diagnostic results supporting the discharge/admit diagnosis, radiology results, the need for outpatient follow up, a family practitioner, to return to the emergency department if symptoms worsen or persist or if there are any questions or concerns that arise at home. 01/23 20:17 Order name: Shoulder Left (2 View) XRAY; Complete Time: 21:04 kb Administered Medications: 20: Drug: Ketorolac IM 30 mg IM once Route: IM; Site: right deltoid; rv 21:43 Follow up: Response: No adverse reaction; Marked relief of symptoms rv 20:27 Drug: Cyclobenzaprine PO 10 mg PO once Route: PO; rv 21:43 Follow up: Response: No adverse reaction; Marked relief of symptoms rv Disposition: 01/24 04:52 Co-signature as Attending Physician, Dave Lowe MD I agree with the assessment sp4 and plan of care. I reviewed the patient's care provided by the Advanced Practice Provider and agree with the diagnosis and treatment plan. Disposition Summary: 01/24/24 21:21 Discharge Ordered Notes: Location: Home kb Condition: Stable kb Diagnosis - Candidiasis, unspecified - bilateral axilla kb - Pain in left shoulder kb Followup: kb - With: Emergency Department - When: As needed - Reason: Worsening of condition Followup: kb - With: Private Physician - When: 2 - 3 days - Reason: Recheck today's complaints, Continuance of care, Re-evaluation by your physician Discharge Instructions: - Discharge Summary Sheet kb - Musculoskeletal Pain kb - Shoulder Pain, Zxxg-oj-Hupp kb - Skin Yeast Infection kb Forms: - Medication Reconciliation Form kb - Thank You Letter kb - Antibiotic Education kb - Prescription Opioid Use kb - Patient Portal Instructions kb - Leadership Thank You Letter kb Signatures: Dispatcher [employer] Mary Lowry, Jean Torres RN RN Dave Jones MD MD sp4
--- NOTE | 2024-01-24 21:22 | ER ---
Nurse's Notes [facility] Name: Taiwo Chery Age: 63 yrs Sex: Male : 1960 Arrival Date: 01/24/2024 Time: 19:57 Bed 12 Private MD: Diagnosis: Candidiasis, unspecified-bilateral axilla;Pain in left shoulder Presentation: 01/23 20:03 Chief complaint: Spouse and/or significant other states: pain, redness on both armpit. rv denies fever. Coronavirus screen: At this time, the client does not indicate any symptoms associated with coronavirus-19. Ebola Screen: No symptoms or risks identified at this time. Initial Sepsis Screen: Does the patient meet any 2 criteria? No. Patient's initial sepsis screen is negative. Does the patient have a suspected source of infection? No. Patient's initial sepsis screen is negative. Risk Assessment: Do you want to hurt yourself or someone else? Patient reports no desire to harm self or others. Onset of symptoms was January 24, 2024. 20:03 Method Of Arrival: Ambulatory rv 20:03 Acuity: LEONARD 4 rv Triage Assessment: 20:06 General: Appears comfortable, Behavior is calm, cooperative. Pain: Denies pain. Neuro: rv Level of Consciousness is awake, alert, obeys commands, Oriented to person, place, time, situation. Cardiovascular: Capillary refill < 3 seconds Patient's skin is warm and dry. Respiratory: Airway is patent Respiratory effort is even, unlabored. GI: No signs and/or symptoms were reported involving the gastrointestinal system. : No signs and/or symptoms were reported regarding the genitourinary system. Derm: Rash noted that is red, on armpit, bilateral. Historical: - Allergies: 20:06 No Known Allergies; rv - PMHx: 20:06 chronic back pain; colon cancer-in remission; diabetes mellitus; Hypertensive disorder; rv - PSHx: 20:06 None; rv - Immunization history:: Adult Immunizations up to date. - Social history:: Smoking status: Patient denies any tobacco usage or history of. Screenin:07 [facility] ED Fall Risk Assessment (Adult) History of falling in the last 3 months, rv including since admission No falls in past 3 months (0 pts) Score/Fall Risk Level 0 - 2 = Low Risk Oriented to surroundings, Maintained a safe environment, Educated pt \T\ family on fall prevention, incl call for assistance when getting out of bed, Assessed \T\ reinforced patient's understanding of fall precautions. Abuse screen: Denies threats or abuse. Denies injuries from another. Nutritional screening: No deficits noted. Tuberculosis screening: No symptoms or risk factors identified. Assessment: 20:40 Reassessment: Patient appears in no apparent distress at this time. Patient and/or pf1 family updated on plan of care and expected duration. Pain level reassessed. Patient is alert, oriented x 3, equal unlabored respirations, skin warm/dry/pink. Vital Signs: 20:03 BP 131 / 76; Pulse 66; Resp 16; Temp 98; Pulse Ox 99% on R/A; rv ED Course: 20:00 Patient arrived in ED. ra3 20:04 Mary Sparks F[facility]-C [facility] kb 20:04 Dave Loew MD is Attending Physician. kb 20:06 Triage completed. rv 20:06 Arm band placed on right wrist. rv 20:07 Patient has correct armband on for positive identification. Client placed on continuous rv cardiac and pulse oximetry monitoring. NIBP monitoring applied. 20:07 No provider procedures requiring assistance completed. Patient did not have IV access rv during this emergency room visit. 20:51 Shoulder Left (2 View) XRAY In Process Unspecified. EDMS Administered Medications: 20:27 Drug: Ketorolac IM 30 mg IM once Route: IM; Site: right deltoid; rv 21:43 Follow up: Response: No adverse reaction; Marked relief of symptoms rv 20:27 Drug: Cyclobenzaprine PO 10 mg PO once Route: PO; rv 21:43 Follow up: Response: No adverse reaction; Marked relief of symptoms rv Medication: 20:07 VIS not applicable for this client. rv Outcome: 21:21 Discharge ordered by . kb 21:42 Discharged to home ambulatory, with family, rv 21:42 Condition: good 21:42 Discharge instructions given to patient, family, Instructed on discharge instructions, follow up and referral plans. Demonstrated understanding of instructions, follow-up care, 21:43 Patient left the ED. rv Signatures: Dispatcher [employer] EDMS Mary Sparks FNP-C FNP-Ckb Vicente, Ronaldo, RN RN rv Raeann Day, RN RN pf1 Louise Petersen ra3
[2024-01-24 21:58] VITALS: BP 131/76; TEMP 98; O2SAT 99
== END ==
LOC: ER 19:57
DX: B37.9 Candidiasis, unspecified (principal); M25.512 Pain in left shoulder
CPT/HCPCS: 96372; 99284

== ENCOUNTER 2024-06-01 17:39 | Emergency (ER) | payer OTHER ==
--- OUTSIDE RECORDS SUMMARY | 2024-06-01 17:49 | XMS REPORT | Continuity of Care Document ---
Author Name Unknown Address [address] [place] [address] [facility] Address [address] [place] [address] Care Team Providers Care Insurance Sales Manager Name Role Phone DIANA ANABELA Primary Care Physician Unavailab Darius Paul Attending Clinician Unavailable Brittanie Wing Attending Clinician Unavailable GEORGINA FOSTER Attending Clinician Unavailable ASUNCION BROWN Attending Clinician Unava ilable KARENA PERES Attending Clinician Unavailable DAVID KAPLAN Attending Clinician Unavailable LAB90 Attending Clinician Unavailable DARIUSZ SANTANA Attending Clinician Unavailable CELESTE PADRON Attending Clinician Unavailable LINH JEFEFRS Attending Clinician Unavailable 39, HOLTER Attending Clinician Unavailable CITLALLI DOUGHERTY Attending Clinician Unavailable DARIUS GALLO Attending Clinician UnaHERON Hinojosa Attending Clinician Unavailable GUS NERI Attending Clinician Unavailable ARABELLA JUNE Attending Clinician Unavailable ABHAY ASTORGA Attending Clinician Unavailab kiran EPSTEIN45 Attending Clinician Unavailable MD ELISE Attending Clinician Unavailab ENRICO Vasques Attending Clinician UnavailNEO Wilcox Attending Clinician Unavailable DARREL CHOI Attending Clinician Unavaila ble PL, TECH 1 Attending Clinician Unavailable CHRISTIANO MENDOZA Attending Clinician Unavailable LATHA ROCK Attending Clinician Unavailab YOHAN Dang Attending Clinician Unavailab Raul Dickerson DO Attending Clinician [phone] JERROD ANDERSON Attending Clinician Unavailable Rafia Medina Attending Clinician [phone] RAFIA PISANO Attending Clinician Unavailable Doctor Unassigned, [place] Attending Clinician U Errol Eldridge Attending Clinician [phone] ERROL SHARP Attending Clinician Unavailable JERROD ANDERSON Admitting Clinician Unavailable Payers Payer Name Policy Type Policy Number Effective Date Expirati on Date Source AETRICKY MENDEZ DUAL COMPLETE CAP(HMO D-SNP OA) 7 [id number] 2023 00:00:00 [place] GOLD PLUS 33 D-SNP OA 7 [id number] 2022 00:00:00 HUMANA MEDICARE 53 [id number] 2022 00:00:00 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) Disease Active 02-25 00:00: 00 Kateryna Seedieold - Externa l Anxiety Anxiety Disease Active 02-25 00:00: 00 Kateryna Seybold - Externa l Primary insomnia Primary insomnia Disease Active 02-25 00:00: 00 Kateryna Rojoold - Externa l Gastroesop hageal reflux disease without esophagiti s Gastroesop hageal reflux disease without esophagiti s Disease Active 02-25 00:00: 00 Kateryna Seybold - Externa l Diabetic polyneurop athy associated with type 2 diabetes mellitus (multi HCC) Diabetic polyneurop athy associated with type 2 diabetes mellitus (multi HCC) Disease Active 02-25 00:00: 00 Kateryna Rojoold - Externa l Acute pain of right knee Acute pain of right knee Disease Active 02-25 00:00: 00 Kateryna Gauthier - Externa l History of colectomy History of colectomy Disease Active 11-27 00:00: 00 Kateryna Seedieold - Externa l 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 Incomplete emptying of bladder Incomplete emptying of bladder Problem [facility] Disorder of kidney and/or ureter Renal mass, right Problem [facility] [id number] Primary osteoarthr itis of right knee Problem [facility] [id number] Primary osteoarthr itis of left knee Problem [facility] [id number] BPH loc w urin obs/LUTS Problem 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 [id number] Other obstructiv e and reflux uropathy Problem [facility] [id number] Urethritis Problem [facility] [id number] Other stricture of urethral meatus in male Problem [facility] [id number] Body mass index (BMI) 40.0-44.9, adult Problem [facility] Hyperlipid emia Hyperlipid emia Problem [facility] [id number] Depression with anxiety Problem [facility] [id number] Morbid obesity Problem [facility] [id number] Essential hypertensi on Problem [facility] Skin sensation disturbanc e Numbness in both hands Problem [facility] [id number] Uncontroll ed type 2 diabetes mellitus with hyperglyce kurtis Problem [facility] Balanitis xerotica obliterans Balanitis xerotica obliterans Problem [facility] Phimosis Phimosis Problem [facility] [id number] Lower urinary tract symptoms (LUTS) Problem [facility] Acute cystitis Acute cystitis with hematuria Problem [facility] [id number] Hx of colon cancer, stage III Problem [facility] Cancer Cancer Problem [facility] Dizziness Dizziness Problem [facility] [id number] Leg heaviness Problem [facility] Headache Frequent headaches Problem [facility] [id number] Obstructiv e sleep apnea Problem [facility] Gross hematuria Gross hematuria Problem [facility] Congenital cystic kidney disease Kidney cyst Problem [facility] Arthritis of both knees Arthritis of both knees Problem [facility] Allergies, Adverse Reactions, Alerts Allergy Name Allergy Type Status Severity Reaction(s) Onset Date Inactive Date Treating Clinician Comments Source No Known Allergie s DA Active U -19 00:00: 00 [facility] NO KNOWN ALLERGIE S Drug Class Active [facility] Social History Social Habit Start Date Stop Date Quantity Comments Source Gender identity Keisha Gauthier - External Sexual orientation K jadiel Gauthier - External Exposure to SARS-CoV-2 (event) Not sure Kateryna Jenkins ediedayanna History of Tobacco Use [facility] Sex Assigned At [facility] History of Social function 2023-07-24 00:00:00 2023-07-24 00:00:00 Kateryna Jenkinsoliverio - Kory Smoking Status Start Date Stop Date Source Former Smoker 2024-01-06 00:00:00 2024-01-06 00:00:00 [facility] Never smoked tobacco Kateryna Gauthier - External Medications Ordered Medication Name Filled Medication Name Start Date Stop Date Current Medication? Ordering Clinician Indication Dosage Frequency Signature (SIG) Comments Components Source Methylpredn isolone Acetate (Depo-Medro l) 40 mg/ml - Physician Administerburton zpeeda ([id number]) 02-03 14:15: 00 02-03 14:38 :00 No [id number] 40mg Kateryna munroe Aspirin 81 MG oral Tablet Delayed Response 02-03 08:44: 53 Yes 81mg Take 1 tablet (81 mg total) by mouth. Kateryna munroe Tizanidine HCl 4 MG oral Tablet 02-03 08:44: 53 Yes 4mg Take 1 tablet (4 mg total) by mouth at bedtime. Kateryna munroe Aripiprazol e 15 MG oral Tablet 02-03 08:44: 53 Yes 15mg Take 1 tablet (15 mg total) by mouth daily. Kateryna munroe Ramelteon (Rozerem) 8 MG oral Tablet 02-03 08:44: 53 Yes 8mg Take 1 tablet (8 mg total) by mouth nightly. Kateryna munroe oxyCODONE-A cetaminophe n 7.5-325 MG oral Tablet 02-03 08:44: 53 Yes 1{tbl} Q.5D Take 1 tablet by mouth 2 times daily as needed for pain. Kateryna munroe Meloxicam 15 MG oral Tablet 02-03 00:00: 00 05-05 04:59 :00 No 15mg Take 1 tablet (15 mg total) by mouth daily. Kateryna munroe Aspirin 81 MG oral Tablet Delayed Response 01-26 09:01: 46 Yes 81mg Take 1 tablet (81 mg total) by mouth. Kateryna munroe Tizanidine HCl 4 MG oral Tablet 01-26 09:01: 46 Yes 4mg Take 1 tablet (4 mg total) by mouth at bedtime. Kateryna munroe Aripiprazol e 15 MG oral Tablet 01-26 09:01: 46 Yes 15mg Take 1 tablet (15 mg total) by mouth daily. Kateryna munroe Ramelteon (Rozerem) 8 MG oral Tablet 01-26 09:01: 46 Yes 8mg Take 1 tablet (8 mg total) by mouth nightly. Kateryna munroe oxyCODONE-A cetaminophe n 7.5-325 MG oral Tablet 01-26 09:01: 46 Yes 1{tbl} Q.5D Take 1 tablet by mouth 2 times daily as needed for pain. Kateryna munroe Ketoconazol e 2 % apply externally Cream 01-26 00:00: 00 Yes [id number] Apply to rash in underarm areas twice daily until it resolves (about 2 weeks). Repeat as necessary. . Kateryna munroe Desonide 0.05 % apply externally Cream 01-26 00:00: 00 Yes [id number] Apply to rash in underarm areas twice daily until it resolves (about 2 weeks). Repeat as necessary. . Kateryna munroe oxyCODONE-A cetaminophe n 7.5-325 MG oral Tablet 01-20 10:21: 35 Yes 1{tbl} Q.5D Take 1 tablet by mouth 2 times daily as needed for pain. Kateryna munroe HYDROcodone -Acetaminop hen 10-325 MG oral Tablet 01-20 10:20: 58 01-20 00:00 :00 No [id number] 1{tbl} QD Take 1 tablet by mouth [...] MG oral Tablet 01-15 00:00: 00 Yes [id number] 3 1000mg Take 1 tablet (1,000 mg total) by mouth in the morning and 1 tablet (1,000 mg total) in the evening. Take with meals. Kateryna munroe Atorvastati n Calcium 40 MG oral Tablet 12-18 00:00: 00 Yes [id number] 40mg Take 1 tablet (40 mg total) [...] in vitro Strip 2022-11 00:00: 00 Yes [id number] Check BS twice daily. Kateryna munroe Empaglifloz in (Jardiance) 10 MG oral Tablet 2022-11 00:00: 00 Yes [id number] 10mg Take 1 tablet (10 mg total) by mouth daily. Kateryna munroe TRUEplus Lancets 33G does not apply [facility] 2022-11 00:00: 00 Yes Use as directed. Kateryna munroe Quetiapine Fumarate 50 MG oral Tablet 2022-11 00:00: 00 Yes 50mg Take 1 tablet (50 mg total) by mouth nightly. Kateryna munroe Blood Glucose Monitoring Suppl (True Metrix Air Glucose Meter) w/Device does not apply Kit 2022-11 00:00: 00 Yes USE DIRECTED Kateryna munroe Enalapril Maleate 10 MG oral Tablet 2022-11 00:00: 00 Yes [id number] 10mg Take 1 tablet (10 mg total) by mouth daily. Kateryna munroe Aspirin 81 MG oral Tablet Delayed Response 08-01 13:09: 52 Yes 81mg Take 1 tablet (81 mg total) by mouth. Kateryna munroe Aripiprazol e 15 MG oral Tablet 08-01 13:09: 52 Yes 15mg Take 1 tablet (15 mg total) by mouth daily. Kateryna munroe Ramelteon (Rozerem) 8 MG oral Tablet 08-01 13:09: 52 Yes 8mg Take 1 tablet (8 mg total) by mouth nightly. Kateryna munroe cycloSPORIN E (Restasis) 0.05 % ophthalmic Emulsion 08-01 00:00: 00 01-26 00:00 :00 No [id number] 1[drp] Place 1 drop into both eyes 2 times daily. Kateryna munroe Aspirin 81 MG oral Tablet Delayed Response 07-24 08:36: 13 Yes 81mg Take 1 tablet (81 mg total) by mouth. Kateryna munroe Aripiprazol e 15 MG oral Tablet 07-24 08:36: 13 Yes 15mg Take 1 tablet (15 mg total) by mouth daily. Kateryna munroe Ramelteon (Rozerem) 8 MG oral Tablet 2023-0 9-14 08:36: 13 Yes 8mg Take 1 tablet (8 mg total) by mouth nightly. Kateryna munroe TRUEplus Lancets 33G does not apply [facility] 9-05 00:00: 00 Yes USE DIRECTED Kateryna munroe Aripiprazol e 15 MG oral Tablet 07-01 14:34: 46 Yes 15mg Take 1 tablet (15 mg total) by mouth daily. Kateryna munroe Trazodone HCl 100 MG oral Tablet 07-01 14:32: 18 07-01 00:00 :00 No Trazodone Oral once daily active Kateryna munroe Metformin HCl 1000 MG oral Tablet 07-01 00:00: 00 Yes [id number] 3 1000mg Take 1 tablet (1,000 mg total) by mouth in the morning and 1 tablet (1,000 mg total) in the evening. Take with meals. Kateryna munroe Blood Glucose Monitoring Suppl (True Metrix Air Glucose Meter) w/Device does not apply Kit 24 00:00: 00 Yes USE DIRECTED Kateryna munroe Aspirin 81 MG oral Tablet Delayed Response 04-30 15:48: 07 Yes 81mg Take 1 tablet (81 mg total) by mouth Kateryna munroe Eszopiclone 3 MG oral Tablet 04-30 15:48: 07 Yes Eszopiclon e Oral once daily active Kateryna munroe methylPREDN ISolone (Medrol) 4 MG oral Tablet Therapy Pack 31 00:00: 00 07-01 00:00 :00 No [id number] Take is instructed on pack Kateryna munroe Ciprofloxac in HCl (Cipro) 500 MG oral Tablet -17 00:00: 00 07-01 00:00 :00 No [id number] 500mg Take 1 tablet (500 mg total) by mouth 2 times daily for 7 days Kateryna munroe Naproxen 500 MG Naproxen 500 MG -15 00:00: 00 No BID Naproxen 500 MG Naproxen 500 MG Naproxen 500 MG 0 5-15 00:00: 00 No BID Naproxen 500 MG Naproxen 500 MG Naproxen 500 MG 0 5-15 00:00: 00 No BID Naproxen 500 MG Naproxen 500 MG Naproxen 500 MG 0 5-15 00:00: 00 No BID Naproxen 500 MG Naproxen 500 MG Naproxen 500 MG 0 -15 00:00: 00 No BID Naproxen 500 MG Naproxen 500 MG Naproxen 500 MG 0 -15 00:00: 00 No BID Naproxen 500 MG Naproxen 500 MG Naproxen 500 MG -15 00:00: 00 No BID Naproxen 500 MG Naproxen 500 MG Naproxen 500 MG 0 -15 00:00: 00 No BID Naproxen 500 MG Naproxen 500 MG Naproxen 500 MG 0 -15 00:00: 00 No BID Naproxen 500 MG Naproxen 500 MG Naproxen 500 MG 0 15 00:00: 00 No BID Naproxen 500 MG Naproxen 500 MG Naproxen 500 MG -15 00:00: 00 No BID Naproxen 500 MG Aspirin 81 MG oral Tablet Delayed Response 03-07 11:36: 59 Yes 81mg Take 1 tablet (81 mg total) by mouth Kateryna munroe Trazodone HCl 100 MG oral Tablet 03-07 11:36: 59 Yes Trazodone Oral once daily active Kateryna munroe Eszopiclone 3 MG oral Tablet 03-07 11:36: 59 Yes Eszopiclon e Oral once daily active Kateryna munroe Gabapentin 300 MG oral Capsule 03-07 00:00: 00 01-20 00:00 :00 No 1 in AM, 1 at noon, and 2 at night Kateryna munroe Blood Glucose Monitoring Suppl (True Metrix Air Glucose Meter) w/Device does not apply Kit 03-04 00:00: 00 Yes USE MONITOR TO CHECK BLOOD SUGAR Kateryna munroe Enalapril Maleate 10 MG oral Tablet 03-04 00:00: 00 Yes [id number] TAKE 1 TABLET EVERY DAY Kateryna munroe Pantoprazol e Sodium 40 MG oral Tablet Delayed Response 03-04 00:00: 00 Yes [id number] TAKE 1 TABLET EVERY DAY Kateryna munroe Blood Glucose Calibration (True Metrix Level 1) Low in vitro Solution 03-04 00:00: 00 Yes Kateryna munroe Metoprolol Tartrate (LOPRESSOR) 25 MG oral Tablet 03-03 00:00: 00 Yes [id number] 25mg Take 1 tablet (25 mg total) by mouth 2 times daily Kateryna munroe Aspirin 81 MG oral Tablet Delayed Response 01-15 11:26: 27 Yes 1{tbl} Take 1 tablet by mouth Kateryna munroe Albuterol HFA 108 (90 Base) MCG/ACT IN AERS 01-02 00:00: 00 Yes [id number] 2{puff} Q.25D Inhale 2 puffs into the lungs every 6 hours as needed for wheezing Kateryna munroe Aspirin 81 MG oral Tablet Delayed Response 12-19 09:34: 36 Yes 1{tbl} Take 1 tablet by mouth Kateryna munroe Sertraline HCl 50 MG oral [...] HCL XL 150 MG OR TB24 11-27 00:00: 00 Yes [id number] 150mg QD Take 1 tablet (150 mg total) by mouth daily as needed (anxiety) Kateryna munroe Doxepin HCl 50 MG oral Capsule 11-27 00:00: 00 02-03 00:00 :00 No [id number] 50mg Take 1 capsule (50 mg total) by mouth daily Kateryna munroe HYDROcodone -Acetaminop hen (NORCO) 5-325 MG oral Tablet 11-27 00:00: 00 02-25 00:00 :00 No [id number] 1{tbl} QD Take 1 tablet by mouth daily as needed for pain Kateryna munroe Amoxicillin -Pot Clavulanate 875-125 MG oral Tablet 11-14 00:00: 00 Yes [id number] 1{tbl} Take 1 tablet by mouth 2 times daily Kateryna munroe Benzonatate (Tessalon Perles) 100 MG oral Capsule 11-14 00:00: 00 Yes [id number] 100mg [id number] 3D Take 1 capsule (100 mg total) by mouth 3 times daily as needed for cough Kateryna munroe Bupropion HCL XL 150 MG OR TB24 2021-11 09:03: 09 Yes every 12 hours Kateryna munroe Gabapentin 600 MG oral Tablet 2021-11 09:03: 09 Yes 600mg Take 600 mg by mouth 3 times daily Kateryna munroe Aspirin 81 MG oral Tablet Delayed Response 2021-11 09:00: 22 Yes 1{tbl} Take 1 tablet by mouth Kateryna munroe Aspirin 81 MG oral Tablet Delayed Response 2021-11 09:30: 15 Yes 1{tbl} Take 1 tablet by mouth Kateryna munroe Bupropion HCL XL 150 MG OR TB24 2021-11 09:30: 15 Yes every 12 hours Kateryna munroe Gabapentin 600 MG oral Tablet 2021-11 09:30: 15 Yes 600mg Take 600 mg by mouth 3 times daily Kateryna munroe Enalapril Maleate 10 MG oral Tablet 2021-11 00:00: 00 Yes [id number] 10mg Take 1 tablet (10 mg total) by mouth daily Kateryna munroe Pantoprazol e Sodium 40 MG oral Tablet Delayed Response 2021-11 00:00: 00 Yes [id number] 40mg Take 1 tablet (40 mg total) by mouth daily Kateryna munroe Blood Glucose Monitoring Suppl (Blood Glucose Monitor System) w/Device does not apply Kit 07-09 00:00: 00 Yes Use monitor to check blood sugar Kateryna munroe [facility] Ortho[facility]isc 0 8 00:00: 00 No 15mg [facility] OrthoVisc OrthoVisc 0 8 00:00: 00 No 15mg [facility] OrthoVisc OrthoVisc 0 8 00:00: 00 No 15mg [facility]oVisc OrthoVisc 2021-0 8 00:00: 00 No 15mg [facility] OrthoVisc OrthoVisc 0 8 00:00: 00 No 15mg [facility] OrthoVisc OrthoVisc 2021-0 8 00:00: 00 No 15mg [facility] OrthoVisc OrthoVisc 2021-0 8 00:00: 00 No 15mg [facility] OrthoVisc OrthoVisc 2021-0 8 00:00: 00 No 15mg [facility] OrthoVisc OrthoVisc 07-09 00:00: 00 No 15mg [facility] OrthoVisc OrthoVisc 07-09 00:00: 00 No 15mg [facility] OrthoVisc OrthoVisc 07-09 00:00: 00 No 15mg [facility] Blood Glucose Monitoring Suppl (Blood Glucose Monitor System) w/Device does not apply Kit 07-09 00:00: 00 11-27 00:00 :00 No Use to check FSBS as needed. Kateryna munroe Glucose Blood in vitro Strip 07-09 00:00: 00 11-27 00:00 :00 No [id number] 1{each} 1 each by other route daily Use 1 as directed twice daily to check blood glucose. Kateryna munroe GNP Sterile Lancets 33G does not apply Misc 07-09 00:00: 00 11-27 00:00 :00 No 1{each} 1 each by does not apply route 2 to 3 times daily Kateryna munroe Metoprolol Tartrate 25 MG oral Tablet 07-07 00:00: 00 Yes [id number] 25mg Take 1 tablet (25 mg total) by mouth 2 times daily Kateryna munroe Atorvastati n Calcium 40 MG oral Tablet 07-07 00:00: 00 Yes [id number] 40mg Take 1 tablet (40 mg total) by mouth daily Kateryna munroe Metformin HCl 1000 MG oral Tablet 07-07 00:00: 00 07-01 00:00 :00 No [id number] 1000mg Take 1 tablet (1,000 mg total) by mouth in the morning and 1 tablet (1,000 mg total) in the evening. Take with meals. Kateryna munroe Applicators (Q-Tips/Sin gle-Tip) does not apply SWAB 07-04 00:00: 00 11-27 00:00 :00 No Use swab to clean site Kateryna munroe [facility] Orth[facility] 2022-0 8-23 00:00: 00 No 15mg [facility] OrthoVisc OrthoVisc 2-0 8-23 00:00: 00 No 15mg [facility] OrthoVisc OrthoVisc 2-0 8-23 00:00: 00 No 15mg [facility] OrthoVisc OrthoVisc 2-0 8-23 00:00: 00 No 15mg [facility] OrthoVisc OrthoVisc 2-0 8-23 00:00: 00 No 15mg [facility] OrthoVisc OrthoVisc 2-0 8-23 00:00: 00 No 15mg [facility] OrthoVisc OrthoVisc 2-0 8-23 00:00: 00 No 15mg [facility] OrthoVisc OrthoVisc 2-0 8-23 00:00: 00 No 15mg [facility] OrthoVisc OrthoVisc 2-0 8-23 00:00: 00 No 15mg [facility] OrthoVisc OrthoVisc 2-0 8-23 00:00: 00 No 15mg [facility] OrthoVisc OrthoVisc 2-0 8-23 00:00: 00 No 15mg [facility] OrthoVisc OrthoVisc 2-0 8-17 00:00: 00 No 15mg [facility] OrthoVisc OrthoVisc 2-0 8-17 00:00: 00 No 15mg [facility] OrthoVisc OrthoVisc 2-0 8-17 00:00: 00 No 15mg [facility] OrthoVisc OrthoVisc 2-0 8-17 00:00: 00 No 15mg [facility] OrthoVisc OrthoVisc 2-0 8-17 00:00: 00 No 15mg [facility] OrthoVisc OrthoVisc 2-0 8-17 00:00: 00 No 15mg [facility] OrthoVisc OrthoVisc 0 8-17 00:00: 00 No 15mg [facility] OrthoVisc OrthoVisc 0 8-17 00:00: 00 No 15mg [facility] OrthoVisc OrthoVisc 0 8-17 00:00: 00 No 15mg [facility] OrthoVisc OrthoVisc 0 8-17 00:00: 00 No 15mg [facility] OrthoVisc OrthoVisc 0 8-17 00:00: 00 No 15mg [facility] Duloxetine HCl [address] [...] 1{capsu le} QD Flomax 0.4 MG Bupivicaine [place] Bupivicaine [place] 02-26 00:00: 00 No 2.5mg [facility] Kenalog (Triamcinol one) Kenalog (Triamcinol one) - 00:00: 00 No 40mg [facility] Bupivicaine [place] Bupivicaine [place] 0 - 00:00: 00 No 2.5mg [facility] Kenalog (Triamcinol one) Kenalog (Triamcinol one) 0 - 00:00: 00 No 40mg [facility] Bupivicaine [place] Bupivicaine [place] 0 - 00:00: 00 No 2.5mg [facility] Kenalog (Triamcinol one) Kenalog (Triamcinol one) 0 02-26 00:00: 00 No 40mg [facility] Bupivicaine [place] Bupivicaine [place] 2021-0 02-26 00:00: 00 No 2.5mg [facility] Kenalog (Triamcinol one) Kenalog (Triamcinol one) 0 - 00:00: 00 No 40mg [facility] Bupivicaine [place] Bupivicaine [place] 2021-0 02-26 00:00: 00 No 2.5mg [facility] Kenalog (Triamcinol one) Kenalog (Triamcinol one) 0 02-26 00:00: 00 No 40mg [facility] Bupivicaine [place] Bupivicaine [place] 2021-0 02-26 00:00: 00 No 2.5mg [facility] Kenalog (Triamcinol one) Kenalog (Triamcinol one) 0 02-26 00:00: 00 No 40mg [facility] Bupivicaine [place] Bupivicaine [place] 2021-0 02-26 00:00: 00 No 2.5mg [facility] Kenalog (Triamcinol one) Kenalog (Triamcinol one) 0 02-26 00:00: 00 No 40mg [facility] Bupivicaine [place] Bupivicaine [place] 2021-0 02-26 00:00: 00 No 2.5mg [facility] Kenalog (Triamcinol one) Kenalog (Triamcinol one) 0 02-26 00:00: 00 No 40mg [facility] Bupivicaine [place] Bupivicaine [place] 2021-0 02-26 00:00: 00 No 2.5mg [facility] Kenalog (Triamcinol one) Kenalog (Triamcinol one) 0 - 00:00: 00 No 40mg [facility] Bupivicaine [place] Bupivicaine [place] 02-26 00:00: 00 No 2.5mg [facility] Kenalog (Triamcinol one) Kenalog (Triamcinol one) 02-26 00:00: 00 No 40mg [facility] Bupivicaine [place] Bupivicaine [place] 02-26 00:00: 00 No 2.5mg [facility] Kenalog (Triamcinol one) Kenalog (Triamcinol one) 02-26 00:00: 00 No 40mg [facility] Alprazolam 0.5 MG oral Tablet 02-11 00:00: 00 01-26 00:00 :00 No .5mg QD Take 1 tablet (0.5 mg total) by mouth daily as needed. Kateryna munroe Atorvastati n Calcium 40 MG Atorvastati n Calcium 40 MG 01-30 00:00: 00 No 1{table t} QD Atorvastat in Calcium 40 MG Atorvastati n Calcium 40 MG Atorvastati n Calcium 40 MG 2021-0 01-30 00:00: 00 No 1{table t} QD Atorvastat in Calcium 40 MG Atorvastati n Calcium 40 MG Atorvastati n Calcium 40 MG 2021-0 01-30 00:00: 00 No 1{table t} QD Atorvastat in Calcium 40 MG Atorvastati n Calcium 40 MG Atorvastati n Calcium 40 MG 0 01-30 00:00: 00 No 1{table t} QD Atorvastat in Calcium 40 MG Atorvastati n Calcium 40 MG Atorvastati n Calcium 40 MG 2021-0 01-30 00:00: 00 No 1{table t} QD Atorvastat in Calcium 40 MG Atorvastati n Calcium 40 MG Atorvastati n Calcium 40 MG 2021-0 01-30 00:00: 00 No 1{table t} QD Atorvastat in Calcium 40 MG Atorvastati n Calcium 40 MG Atorvastati n Calcium 40 MG 2021-0 01-30 00:00: 00 No 1{table t} QD [...] 100 MG oral Capsule 11-29 00:00: 00 11-27 00:00 :00 No [id number] 100mg Take 1 capsule (100 mg total) by mouth 2 times daily Kateryna munroe Aspirin (Aspir-Low) 81 MG oral Tablet Delayed Response 11-26 11:06: 52 Yes 1{tbl} Take 1 tablet by mouth Kateryna Gauthier Bupropion HCL XL 150 MG OR TB24 11-26 11:06: 52 Yes every 12 hours Kateryna Gauthier Metformin HCl 1000 MG oral Tablet 11-26 11:06: 52 Yes 1000mg Take 1,000 mg by mouth 2 times daily (with meals) Kateryna Gauthier Gabapentin 600 MG oral Tablet 11-26 11:06: 52 Yes 600mg Take 600 mg by mouth 3 times daily Kateryna Gauthier Albuterol HFA 108 (90 Base) MCG/ACT IN AERS 11-26 00:00: 00 Yes [id number] 2{puff} Q.25D Inhale 2 puffs into the lungs every 6 hours as needed for wheezing Kateryna munroe Lidocaine Pain Relief 4 % apply externally Patch 11-14 00:00: 00 Yes Kateryna munroe Metoprolol Tartrate 50 MG oral Tablet 2020-11 2-15 00:00: 00 11-26 00:00 :00 No 50mg Take 50 mg by mouth 2 times daily FOR 90 DAYS Kateryna Gauthier Zolpidem Tartrate 12.5 MG oral Tab CR 4-12 00:00: 00 11-27 00:00 :00 No 12.5mg Take 12.5 mg by mouth at bedtime Ktaeryna munroe Lidocaine 5 % apply externally Ointment 4-02 00:00: 00 11-27 00:00 :00 No APPLY EXTERNALLY TO LOWER BACK PAIN SENSITIVE AREA TWICE A DAY NEEDED Kateryna munroe HYDROcodone -Acetaminop hen (NORCO) 5-325 MG oral Tablet 3-24 00:00: 00 11-27 00:00 :00 No TAKE 1 TABLET BY MOUTH TWICE DAILY NEEDED FOR 15 DAYS Kateryna munroe Simvastatin 40 MG oral Tablet 3-02 00:00: 00 Yes every 24 hours Kateryna Gauthier traZODone HCl 50 MG traZODone HCl 50 MG No 1{table t_at_be dtime_a s_neede d} QD traZODone HCl 50 MG Clotrimazol e-Betametha sone 1-0.05 % Clotrimazol e-Betametha sone 1-0.05 % No BID Clotrimazo le-Betamet hasone 1-0.05 % Diclofenac Diclofenac No Diclofenac Zolpidem Tartrate ER 12.5 MG Zolpidem Tartrate ER 12.5 MG No 1{table t_at_be dtime_a s_neede d} QD Zolpidem Tartrate ER 12.5 MG Doxepin HCl 50 MG Doxepin HCl 50 MG No 1{capsu le_at_b edtime} QD Doxepin HCl 50 MG Sertraline HCl 50 MG Sertraline HCl 50 MG No 1{table t} QD Sertraline HCl 50 MG Mirtazapine 7.5 MG Mirtazapine 7.5 MG No 1{table t_at_be dtime} QD Mirtazapin e 7.5 MG Enalapril Maleate 20 MG Enalapril Maleate 20 MG No Enalapril Maleate 20 MG Metoprolol Tartrate 50 MG Metoprolol Tartrate 50 MG No 1{table t} BID Metoprolol Tartrate 50 MG glipiZIDE ER 5 MG glipiZIDE ER 5 MG No 1{table t_with_ food} QD glipiZIDE ER 5 MG Wellbutrin XL 150 MG Wellbutrin XL 150 MG No 1{table t_in_th e_morni ng} QD Wellbutrin XL 150 MG metFORMIN HCl 1000 MG metFORMIN HCl [...] d} QD Zolpidem Tartrate ER 12.5 MG Sertraline HCl 50 MG Sertraline HCl [...] t} QD Pantoprazo le Sodium 40 MG ALPRAZolam 0.5 MG ALPRAZolam 0.5 MG No ALPRAZolam 0.5 MG Clotrimazol e-Betametha sone 1-0.05 % Clotrimazol e-Betametha sone 1-0.05 % No BID Clotrimazo le-Betamet hasone 1-0.05 % traZODone HCl 50 MG traZODone HCl 50 MG No 1{table t_at_be dtime_a s_neede d} QD traZODone HCl 50 MG Wellbutrin XL 150 MG Wellbutrin XL 150 MG No 1{table t_in_th e_morni ng} QD Wellbutrin XL 150 MG Mirtazapine 7.5 MG Mirtazapine 7.5 MG No 1{table t_at_be dtime} QD Mirtazapin e 7.5 MG Doxepin HCl 50 MG Doxepin HCl [...] d} QD Zolpidem Tartrate ER 12.5 MG Sertraline HCl 50 MG Sertraline HCl [...] t} QD Pantoprazo le Sodium 40 MG ALPRAZolam 0.5 MG ALPRAZolam 0.5 MG No ALPRAZolam 0.5 MG Clotrimazol e-Betametha sone 1-0.05 % Clotrimazol e-Betametha sone 1-0.05 % No BID Clotrimazo le-Betamet hasone 1-0.05 % traZODone HCl 50 MG traZODone HCl 50 MG No 1{table t_at_be dtime_a s_neede d} QD traZODone HCl 50 MG Wellbutrin XL 150 MG Wellbutrin XL 150 MG No 1{table t_in_th e_morni ng} QD Wellbutrin XL 150 MG Mirtazapine 7.5 MG Mirtazapine 7.5 MG No 1{table t_at_be dtime} QD Mirtazapin e 7.5 MG Doxepin HCl 50 MG Doxepin HCl [...] d} QD Zolpidem Tartrate ER 12.5 MG Sertraline HCl 50 MG Sertraline HCl [...] ALPRAZolam 0.5 MG No ALPRAZolam 0.5 MG Clotrimazol e-Betametha sone 1-0.05 % Clotrimazol e-Betametha sone 1-0.05 % No BID Clotrimazo le-Betamet hasone 1-0.05 % traZODone HCl 50 MG traZODone HCl 50 MG No 1{table t_at_be dtime_a s_neede d} QD traZODone HCl 50 MG Wellbutrin XL 150 MG Wellbutrin XL 150 MG No 1{table t_in_th e_morni ng} QD Wellbutrin XL 150 MG Mirtazapine 7.5 MG Mirtazapine 7.5 MG No 1{table t_at_be dtime} QD Mirtazapin e 7.5 MG Doxepin HCl 50 MG Doxepin HCl [...] d} QD Zolpidem Tartrate ER 12.5 MG Sertraline HCl 50 MG Sertraline HCl [...] ALPRAZolam 0.5 MG No ALPRAZolam 0.5 MG Clotrimazol e-Betametha sone 1-0.05 % Clotrimazol e-Betametha sone 1-0.05 % No BID Clotrimazo le-Betamet hasone 1-0.05 % traZODone HCl 50 MG traZODone HCl 50 MG No 1{table t_at_be dtime_a s_neede d} QD traZODone HCl 50 MG Wellbutrin XL 150 MG Wellbutrin XL 150 MG No 1{table t_in_th e_morni ng} QD Wellbutrin XL 150 MG Mirtazapine 7.5 MG Mirtazapine 7.5 MG No 1{table t_at_be dtime} QD Mirtazapin e 7.5 MG Doxepin HCl 50 MG Doxepin HCl [...] d} QD Zolpidem Tartrate ER 12.5 MG Sertraline HCl 50 MG Sertraline HCl [...] ALPRAZolam 0.5 MG No ALPRAZolam 0.5 MG Clotrimazol e-Betametha sone 1-0.05 % Clotrimazol e-Betametha sone 1-0.05 % No BID Clotrimazo le-Betamet hasone 1-0.05 % traZODone HCl 50 MG traZODone HCl 50 MG No 1{table t_at_be dtime_a s_neede d} QD traZODone HCl 50 MG Wellbutrin XL 150 MG Wellbutrin XL 150 MG No 1{table t_in_th e_morni ng} QD Wellbutrin XL 150 MG Mirtazapine 7.5 MG Mirtazapine 7.5 MG No 1{table t_at_be dtime} QD Mirtazapin e 7.5 MG Doxepin HCl 50 MG Doxepin HCl [...] d} QD Zolpidem Tartrate ER 12.5 MG Sertraline HCl 50 MG Sertraline HCl [...] ALPRAZolam 0.5 MG No ALPRAZolam 0.5 MG Clotrimazol e-Betametha sone 1-0.05 % Clotrimazol e-Betametha sone 1-0.05 % No BID Clotrimazo le-Betamet hasone 1-0.05 % traZODone HCl 50 MG traZODone HCl 50 MG No 1{table t_at_be dtime_a s_neede d} QD traZODone HCl 50 MG Wellbutrin XL 150 MG Wellbutrin XL 150 MG No 1{table t_in_th e_morni ng} QD Wellbutrin XL 150 MG Mirtazapine 7.5 MG Mirtazapine 7.5 MG No 1{table t_at_be dtime} QD Mirtazapin e 7.5 MG Doxepin HCl 50 MG Doxepin HCl [...] d} QD Zolpidem Tartrate ER 12.5 MG Sertraline HCl 50 MG Sertraline HCl [...] ALPRAZolam 0.5 MG No ALPRAZolam 0.5 MG Clotrimazol e-Betametha sone 1-0.05 % Clotrimazol e-Betametha sone 1-0.05 % No BID Clotrimazo le-Betamet hasone 1-0.05 % traZODone HCl 50 MG traZODone HCl 50 MG No 1{table t_at_be dtime_a s_neede d} QD traZODone HCl 50 MG Wellbutrin XL 150 MG Wellbutrin XL 150 MG No 1{table t_in_th e_morni ng} QD Wellbutrin XL 150 MG Mirtazapine 7.5 MG Mirtazapine 7.5 MG No 1{table t_at_be dtime} QD Mirtazapin e 7.5 MG Doxepin HCl 50 MG Doxepin HCl [...] d} QD Zolpidem Tartrate ER 12.5 MG Sertraline HCl 50 MG Sertraline HCl [...] ALPRAZolam 0.5 MG No ALPRAZolam 0.5 MG Clotrimazol e-Betametha sone 1-0.05 % Clotrimazol e-Betametha sone 1-0.05 % No BID Clotrimazo le-Betamet hasone 1-0.05 % traZODone HCl 50 MG traZODone HCl 50 MG No 1{table t_at_be dtime_a s_neede d} QD traZODone HCl 50 MG Wellbutrin XL 150 MG Wellbutrin XL 150 MG No 1{table t_in_th e_morni ng} QD Wellbutrin XL 150 MG Mirtazapine 7.5 MG Mirtazapine 7.5 MG No 1{table t_at_be dtime} QD Mirtazapin e 7.5 MG Doxepin HCl 50 MG Doxepin HCl [...] d} QD Zolpidem Tartrate ER 12.5 MG Sertraline HCl 50 MG Sertraline HCl [...] ALPRAZolam 0.5 MG No ALPRAZolam 0.5 MG Clotrimazol e-Betametha sone 1-0.05 % Clotrimazol e-Betametha sone 1-0.05 % No BID Clotrimazo le-Betamet hasone 1-0.05 % traZODone HCl 50 MG traZODone HCl 50 MG No 1{table t_at_be dtime_a s_neede d} QD traZODone HCl 50 MG Wellbutrin XL 150 MG Wellbutrin XL 150 MG No 1{table t_in_th e_morni ng} QD Wellbutrin XL 150 MG Mirtazapine 7.5 MG Mirtazapine 7.5 MG No 1{table t_at_be dtime} QD Mirtazapin e 7.5 MG buPROPion HCl ER (XL) buPROPion HCl ER (XL) No buPROPion HCl ER (XL) Zolpidem Tartrate ER 12.5 MG Zolpidem Tartrate [...] s_neede d} QD traZODone HCl 50 MG metFORMIN HCl 1000 MG metFORMIN HCl 1000 MG No 1{table t_with_ a_meal} BID metFORMIN HCl 1000 MG ALPRAZolam 0.5 MG ALPRAZolam 0.5 MG No ALPRAZolam 0.5 MG Enalapril Maleate 20 MG Enalapril Maleate 20 MG No Enalapril Maleate 20 MG Pantoprazol e Sodium 40 MG Pantoprazol e Sodium 40 MG No 1{table t} QD Pantoprazo le Sodium 40 MG Metoprolol Tartrate 50 MG Metoprolol Tartrate [...] No 1{capsu le} BID Gabapentin 300 MG Mirtazapine 7.5 MG Mirtazapine 7.5 MG [...] Virus Vaccine, Quad, Egg Free 2022-09-04 00:00:00 Gaudencio Gauthier - External Influenza Virus Vaccine, Quad, Egg [...] Covid-19 Vaccine Moderna (Spikevax), Mrna-lnp, Tito Protein, 2021-11-08 00:00:00 Completed Kateryna Seybold - External Covid-19 Vaccine Moderna (Spikevax), Mrna-lnp, Tito Protein, Pf 2021-10-19 00:00:00 Completed Kateryna Seybold - External Covid-19 Vaccine Moderna (Spikevax), Mrna-lnp, Tito Protein, 2021-10-19 00:00:00 Completed Kateryna Seybold - External Covid-19 Vaccine Moderna (Spikevax), Mrna-lnp, Tito Protein, 2021-10-19 00:00:00 Completed Kateryna Seybold - External Covid-19 Vaccine Moderna (Spikevax), Mrna-lnp, Tito Protein, Pf 2021-10-19 00:00:00 Completed Kateryna Seybold - External Covid-19 Vaccine Moderna (Spikevax), Mrna-lnp, Tito Protein, 2021-10-19 00:00:00 Completed Kateryna Seybold - External Covid-19 Vaccine Moderna (Spikevax), Mrna-lnp, Tito Protein, 2021-10-19 00:00:00 Completed Kateryna Seybold - External [...] Vaccine Moderna COVID-19 Vaccine 2021-03-09 11:49:00 Completed [facility] Covid-19 Vaccine Moderna (Spikevax), Mrna-lnp, Tito Protein, [...] Covid-19 Vaccine Moderna (Spikevax), Mrna-lnp, Tito Protein, 2021-03-07 00:00:00 Completed Kateryna Seybold - External Moderna COVID-19 Vaccine Moderna COVID-19 Vaccine 2021-02-07 11:48:00 Completed [facility] Covid-19 Vaccine Moderna (Spikevax), Mrna-lnp, Tito Protein, [...] Tito Protein, Pf 2021-02-07 00:00:00 Completed Kateryna Jenkinsybold - External Afluria Afluria 2021-01-08 11:48:00 Completed [facility] Influenza, Seasonal, Injectable, Preservative Free 2021-01-08 00:00:00 [...] Seasonal, Injectable, Preservative Free 2021-01-08 00:00:00 Completed Kateryan Seybold Influenza, Seasonal, Injectable, Preservative Free 2021-01-08 [...] Injectable, Preservative Free 2021-01-08 00:00:00 Completed Kateryna Rojoold - External Influenza, Seasonal, Injectable, Preservative Free 2021-01-08 00:00:00 Completed Kateryna Jenkinsybold - External Covid-19 Vaccine Moderna (Spikevax), Mrna-lnp, Tito Protein, Pf Unknown Completed Kateryna Rojoold - External Influenza, Seasonal, Injectable, Preservative Free Unknown Completed Kateryna manjarrez - External Influenza, Seasonal, Injectable, Preservative Free Unknown Completed Kateryna Navarrete bold - External Covid-19 Vaccine Moderna (Spikevax), Mrna-lnp, Tito Protein, Pf Unknown Completed Kateryna Seybold - External Covid-19 Vaccine Moderna (Spikevax), Mrna-lnp, Tito Protein, Pf Unknown Completed Kateryna Seybold - External Covid-19 Vaccine Moderna (Spikevax), Mrna-lnp, Tito Protein, Pf Unknown Completed Kateryna Seybold - External Covid-19 Vaccine Moderna (Spikevax), Mrna-lnp, Tito Protein, Pf Unknown Completed Kateryna ybold - External Influenza Virus Vaccine, Quad, Egg Free Unknown Completed Kateryna Seybold - External Influenza Virus Vaccine, Unspecified Formulation Unknown Completed Kateryna Seybold - External Covid-19 Vaccine Moderna (Spikevax), Mrna-lnp, Tito Protein, Pf Unknown Completed Kateryna Seybold - External Covid-19 Vaccine Moderna (Spikevax), Mrna-lnp, Tito Protein, Pf Unknown Completed Kateryna Rojoold - External Influenza, Seasonal, Injectable, Preservative Free Unknown Completed Kateyrna manjarrez - External Influenza, Seasonal, Injectable, Preservative Free Unknown Completed Kateryna Navarrete bold - External Covid-19 Vaccine Moderna (Spikevax), Mrna-lnp, Tito Protein, Pf Unknown Completed Kateryna Seybold - External Covid-19 Vaccine Moderna (Spikevax), Mrna-lnp, Tito Protein, Pf Unknown Completed Kateryna Seybold - External Covid-19 Vaccine Moderna (Spikevax), Mrna-lnp, Tito Protein, Pf Unknown Completed Kateryna Seybold - External Covid-19 Vaccine Moderna (Spikevax), Mrna-lnp, Tito Protein, Pf Unknown Completed Kateryna Seybold - External Influenza Virus Vaccine, Quad, Egg Free Unknown Completed [facility] - External Influenza Virus Vaccine, Unspecified Formulation Unknown Completed [facility] - External Covid-19 Vaccine Moderna (Spikevax), Mrna-lnp, Tito Protein, Pf [facility] Moderna (Spikevax), Mrna-lnp, Tito Protein, Pf Unknown Completed [facility] - External Influenza, Seasonal, Injectable, Preservative Free Unknown Completed [facility] bold - External Influenza, Seasonal, Injectable, Preservative Free Unknown Completed [facility] - External Covid-19 Vaccine Moderna (Spikevax), Mrna-lnp, Tito Protein, Pf Unknown Completed [facility] - External Covid-19 Vaccine Moderna (Spikevax), Mrna-lnp, Tito Protein, Pf Unknown Completed [facility] - External Covid-19 Vaccine Moderna (Spikevax), Mrna-lnp, Tito Protein, Pf Unknown Completed [facility] - External Covid-19 Vaccine Moderna (Spikevax), Mrna-lnp, Tito Protein, Pf Unknown Completed [facility] - External Influenza Virus Vaccine, Quad, Egg Free Unknown [facility] Virus Vaccine, Unspecified Formulation Unknown Completed [facility] - External Covid-19 Vaccine Moderna (Spikevax), Mrna-lnp, Tito Protein, Pf Unknown Completed [facility] - External Covid-19 Vaccine Moderna (Spikevax), Mrna-lnp, Tito Protein, Pf Unknown Completed [facility] - External Influenza, Seasonal, Injectable, Preservative Free Unknown Completed [facility] - External Influenza, Seasonal, Injectable, Preservative Free Unknown Completed [facility] - External Covid-19 Vaccine Moderna (Spikevax), Mrna-lnp, Tito Protein, Pf Unknown Completed Kateryna Seybold - External Covid-19 Vaccine Moderna (Spikevax), Mrna-lnp, Tito Protein, Pf Unknown Completed [facility] Seybold - External Covid-19 Vaccine Moderna (Spikevax), Mrna-lnp, Tito Protein, Pf [facility] Moderna (Spikevax), Mrna-lnp, Tito Protein, Pf Unknown Completed Kateryna Seybold - External Influenza Virus Vaccine, Quad, Egg Free Unknown Completed Kateryna Seybold - External Influenza Virus Vaccine, Unspecified Formulation Unknown Completed Kateryna Seybold - External Covid-19 Vaccine Moderna (Spikevax), Mrna-lnp, Tito Protein, Pf [facility] Moderna (Spikevax), Mrna-lnp, Tito Protein, Pf [facility] Influenza, Seasonal, Injectable, Preservative Free Unknown Completed [facility] bold - External Influenza, Seasonal, Injectable, Preservative Free Unknown Completed [facility] - External Covid-19 Vaccine Moderna (Spikevax), Mrna-lnp, Tito Protein, Pf [facility] Vacc[facility] Moderna (Spikevax), Mrna-lnp, Tito Protein, Pf Unknown Completed [facility] - External Covid-19 Vaccine Moderna (Spikevax), Mrna-lnp, Tito Protein, Pf [facility] Vaccine Moderna (Spikevax), Mrna-lnp, Tito Protein, Pf [facility] Influenza Virus Vaccine, Quad, Egg Free Unknown Completed Kateryna Seybold - External Influenza Virus Vaccine, Unspecified Formulation Unknown [facility] Vaccine Moderna (Spikevax), Mrna-lnp, Tito Protein, Pf Unknown Completed [facility] - External Covid-19 Vaccine Moderna (Spikevax), Mrna-lnp, Tito Protein, Pf Unknown Completed [facility] - External Influenza, Seasonal, Injectable, Preservative Free Unknown Completed [facility] - External Influenza, Seasonal, Injectable, Preservative Free Unknown Completed [facility] - External Covid-19 Vaccine Moderna (Spikevax), Mrna-lnp, Tito Protein, Pf Unknown Completed Kateryna Seybold - External Covid-19 Vaccine Moderna (Spikevax), Mrna-lnp, Tito Protein, Pf [facility] Vaccine Moderna (Spikevax), Mrna-lnp, Tito Protein, Pf Unknown [facility] Cov[facility] Vaccine Moderna (Spikevax), Mrna-lnp, Tito Protein, Pf Unknown Completed [facility] - External Influenza Virus Vaccine, Quad, Egg Free Unknown Completed [facility] - External Influenza Virus Vaccine, Unspecified Formulation Unknown Completed [facility] External Covid-19 Vaccine Moderna (Spikevax), Mrna-lnp, Tito Protein, Pf Unknown Completed [facility] External Moderna COVID-19 Vaccine Moderna COVID-19 Vaccine Unknown Completed [facility] Moderna COVID-19 Vaccine Moderna COVID-19 Vaccine Unknown Completed [facility] Afluria Afluria Unknown Completed [facility] Moderna COVID-19 Vaccine Moderna COVID-19 Vaccine Unknown Completed [facility] Moderna COVID-19 Vaccine Moderna COVID-19 Vaccine Unknown Completed [facility] Afluria Afluria Unknown Completed [facility] Moderna COVID-19 Vaccine Moderna COVID-19 Vaccine Unknown Completed [facility] Moderna COVID-19 Vaccine Moderna COVID-19 Vaccine Unknown Completed [facility] Afluria Afluria Unknown Completed [facility] Moderna COVID-19 Vaccine Moderna COVID-19 Vaccine Unknown Completed [facility] Moderna COVID-19 Vaccine Moderna COVID-19 Vaccine Unknown Completed [facility] Afluria Afluria Unknown Completed [facility] Moderna COVID-19 Vaccine Moderna COVID-19 Vaccine Unknown Completed [facility] Moderna COVID-19 Vaccine Moderna COVID-19 Vaccine Unknown Completed [facility] Afluria Afluria Unknown Completed [facility] Moderna COVID-19 Vaccine Moderna COVID-19 Vaccine Unknown Completed [facility] Moderna COVID-19 Vaccine Moderna COVID-19 Vaccine Unknown Completed [facility] Afluria Afluria Unknown Completed [facility] Moderna COVID-19 Vaccine Moderna COVID-19 Vaccine Unknown Completed [facility] Moderna COVID-19 Vaccine Moderna COVID-19 Vaccine Unknown Completed [facility] Afluria Afluria Unknown Completed [facility] Moderna COVID-19 Vaccine Moderna COVID-19 Vaccine Unknown Completed [facility] Moderna COVID-19 Vaccine Moderna COVID-19 Vaccine Unknown Completed [facility] Afluria Afluria Unknown Completed [facility] - [facility] Moderna COVID-19 Vaccine Moderna COVID-19 Vaccine Unknown Completed [facility] Moderna COVID-19 Vaccine Moderna COVID-19 Vaccine Unknown Completed [facility] Afluria Afluria Unknown Completed [facility] Moderna COVID-19 Vaccine Moderna COVID-19 Vaccine Unknown Completed [facility] Moderna COVID-19 Vaccine Moderna COVID-19 Vaccine Unknown Completed [facility] Afluria Afluria Unknown Completed [facility] - [facility] Vital Signs Vital Name Observation Time Observation Value Comments S ource Body weight 2024-02-04 13:44:00 103.42 kg Keisha ey Seybold - External BMI 2024-02-04 13:44:00 39.14 kg/m2 Keisha ey Seybold - External Systolic blood pressure 2024-01-21 14:55:00 118 mm[Hg] Kateryna Jenkinsybo ld - External Diastolic blood pressure 2024-01-21 14:55:00 74 mm[Hg] Kateryna Rojoo ld - External Heart rate 2024-01-21 14:55:00 59 /min Allison y Seybold - External Body temperature 2024-01-21 14:55:00 36.5 Leslie Kateryna Seybold - External Respiratory rate 2024-01-21 14:55:00 15 /min Kateryna Jenkinsybold - External Body height 2024-01-21 14:55:00 162.6 cm Keisha ey Seybold - External Body weight 2024-01-21 14:55:00 102.967 kg Keisha ey Seybold - External BMI 2024-01-21 14:55:00 38.96 kg/m2 Keisha ey Seybold - External Oxygen saturation in Arterial blood by Pulse oximetry 2024-01-21 14:55:00 100 /min Kateryna Jenkinsybo ld - External height 2024-01-06 09:45:00 64.00 [in_i] Com [facility] weight 2024-01-06 09:45:00 220 [lb_av] Comm [facility] temperature 2024-01-06 09:45:00 97.7 [degF] Com [facility] bmi 2024-01-06 09:45:00 37.76 kg/m2 Comm on [facility] blood pressure systolic 2024-01-06 09:45:00 120 mm[Hg] [facility] blood pressure diastolic 2024-01-06 09:45:00 82 mm[Hg] [facility] Systolic blood pressure 2023-10-07 20:20:00 120 mm[Hg] Kateryna Seybo ld - External Diastolic blood pressure 2023-10-07 20:20:00 77 mm[Hg] Kateryna Seybo ld - External Heart rate 2023-10-07 20:20:00 65 /min Kelse y Seybold - External Body temperature 2023-10-07 [...] External Body weight 2023-07-24 13:36:00 105.235 kg Keisha ey Seybold - External BMI 2023-07-24 13:36:00 39.82 kg/m2 Keisha ey Seybold - External Oxygen saturation in Arterial blood by Pulse oximetry 2023-07-24 13:36:00 100 /min Kateryna Rojoo ld - External Systolic blood pressure 2023-07-01 19:18:00 106 mm[Hg] Kateryna ybo ld - External Diastolic blood pressure 2023-07-01 19:18:00 68 mm[Hg] Kateryna ybo ld - External Heart rate 2023-07-01 19:18:00 64 /min Drese y Seybold - External Body temperature 2023-07-01 19:18:00 36.44 Leslie Kateryna Seybold - External Respiratory rate 2023-07-01 19:18:00 16 /min Kateryna Jenkinsybold - External Body height 2023-07-01 19:18:00 162.6 cm Keisha ey Seybold - External Body weight 2023-07-01 19:18:00 107.049 kg Keisha ey Seybold - External BMI 2023-07-01 19:18:00 40.51 kg/m2 Keisha ey Seybold - External Oxygen saturation in Arterial blood by Pulse oximetry 2023-07-01 19:18:00 97 /min Kateryna Jenkinsybo ld - External height 2023-05-20 13:30:00 64.00 [in_i] Com [facility] weight 2023-05-20 13:30:00 220 [lb_av] Comm on [facility] temperature 2023-05-20 13:30:00 98.9 [degF] Com [facility] bmi 2023-05-20 13:30:00 37.76 kg/m2 Comm on [facility] blood pressure systolic 2023-05-20 13:30:00 116 mm[Hg] [facility] blood pressure diastolic 2023-05-20 13:30:00 74 mm[Hg] Common [facility] Body height 2023-03-07 16:34:00 162.6 cm Keisha [...] External Respiratory rate 2022-09-09 14:27:00 14 /min Kateryan Seybold - External Body height 2022-09-09 14:27:00 [...] End Date/Time Encounter Type Admission Type Attending [facility] Care Department Encounter ID Source 2024-02-09 07:38:00 Outpatient Darius Gallo [facility] [id number] [facility] [facility] 2023-12-19 10:16:00 Outpatient Darius Gallo STLMLC STLMLC [id number] [facility] 2023-03-24 15:49:01 Outpatient Darius Gallo STLMLC STLMLC [id number] [facility] 2023-03-11 09:16:01 Outpatient Darius Gallo STLMLC STLMLC [id number] [facility] 2022-08-15 09:14:03 Outpatient Darius Gallo STLMLC STLMLC [id number] [facility] 2022-06-18 08:34:02 Outpatient Darius Gallo STLMLC STLMLC [id number] [facility] 2022-03-12 16:48:01 Outpatient Wing, Avnee STLMLC STLMLC [id number] [facility] 2022-02-27 09:15:02 Outpatient Wing, Avnee STLMLC STLMLC [id number] [facility] 2022-02-26 13:41:03 Outpatient Wing, Avnee STLMLC STLMLC [id number] [facility] 2022-02-12 14:26:01 Outpatient Wing, Avnee STLMLC STLMLC [id number] [facility] 2022-02-08 14:54:01 Outpatient Wing, Avnee STLMLC STLMLC [id number] [facility] 2022-01-30 07:54:01 Outpatient Wing, Avnee STLMLC STLMLC [id number] [facility] 2022-01-28 10:38:01 Outpatient Wing, Avnee STLMLC STLMLC [id number] [facility] 2022-01-21 15:25:01 Outpatient Wing, Avnee STLMLC STLMLC [id number] [facility] 2022-01-15 09:32:04 Outpatient WingDavenee STLMLC STLMLC [id number] [facility] 2022-01-14 10:53:02 Outpatient Wing Avnee STLMLC STLMLC [id number] [facility] 2022-01-11 15:37:01 Outpatient WingDavenee STLMLC STLMLC [id number] [facility] 2021-12-05 14:28:58 Outpatient Wing Avnee STLMLC STLMLC [id number] [facility] 2021-12-05 14:24:55 Outpatient Wing Avnee STLMLC STLMLC [id number] [facility] 2021-12-05 14:21:24 Outpatient WingBrittanie STLMLC STLMLC [id number] [facility] 2024-06-10 16:15:00 2024-06-10 16:15:00 Outpatient GEORGINA FOSTER [id number] [facility] 2024-05-24 00:00:00 2024-05-24 00:00:00 Outpatient GEORGINA FOSTER [id number] [facility] 2024-05-05 00:00:00 2024-05-05 00:00:00 Outpatient KATERYNA MITCHELL [id number] [facility] 2024-04-30 11:00:00 2024-04-30 11:00:00 Outpatient GEORGINA FOSTER [id number] [facility] 2024-04-22 09:30:00 2024-04-22 09:30:00 Outpatient GEORGINA FOSTER [id number] [facility] 2024-04-06 00:00:00 2024-04-06 00:00:00 Outpatient KATERYNA MITCHELL [id number] Kateryna Seybold 2024-03-24 08:30:00 2024-03-24 08:30:00 Outpatient ASUNCION BROWN KATERYNA MITCHELL [id number] Kateryna Seybold 2024-03-21 00:00:00 2024-03-21 00:00:00 Outpatient GEORGINA FOSTER KATERYNA MITCHELL [id number] Kateryna Seybold 2024-03-19 00:00:00 2024-03-19 00:00:00 Outpatient KARENA PERES KATERYNA MITCHELL [id number] Kateryna Seybold 2024-03-12 00:00:00 2024-03-12 00:00:00 Outpatient EUSEBIO DAVID KATERYNA MITCHELL [id number] Kateryna Seybold 2024-03-10 00:00:00 2024-03-10 00:00:00 Outpatient KATERYNA MITCHELL [id number] Kateryna Seybold 2024-03-09 08:15:00 2024-03-09 08:15:00 Outpatient KATERYNA MITCHELL [id number] Kateryna Seybold 2024-03-09 00:00:00 2024-03-09 00:00:00 Outpatient KATERYNA MITCHELL [id number] Kateryna Seybold 2024-02-20 00:00:00 2024-02-20 00:00:00 Outpatient KARENA PERES KATERYNA MITCHELL [id number] Kateryna Seybold 2024-02-18 00:00:00 2024-02-18 00:00:00 Outpatient GEORGINA FOSTER KATERYNA MITCHELL [id number] Kateryna Seybold 2024-02-17 00:00:00 2024-02-17 00:00:00 Outpatient KATERYNA MITCHELL [id number] Kateryna Seybold 2024-02-17 00:00:00 2024-02-17 00:00:00 Outpatient GEORGINA FOSTER KATERYNA MITCHELL [id number] Kaetryna Seybold 2024-02-17 00:00:00 2024-02-17 00:00:00 Outpatient JORDINTRUMAN GEORGINA KATERYNA MITCHELL [id number] Kateryna Seybold 2024-02-04 08:20:00 2024-02-04 08:20:00 Outpatient KATERYNA KATERYNA [id number] [facility] 2024-02-04 08:00:00 2024-02-04 08:00:00 Outpatient KARENA PERES KATERYNA MITCHELL [id number] Kateryna Jenkinsybdayanna 2024-02-04 00:00:00 2024-02-04 00:00:00 Outpatient KARENA PERES KATERYNA MITCHELL [id number] [facility] 2024-02-04 00:00:00 2024-02-04 00:00:00 Outpatient KATERYNA MITCHELL [id number] [facility] 2024-02-02 00:00:00 2024-02-02 00:00:00 Outpatient PREZASGEORGINA KATERYNA MITCHELL [id number] [facility] 2024-02-02 00:00:00 2024-02-02 00:00:00 Outpatient PREZAS, GEORGINA KATERYNA MITCHELL [id number] [facility] 2024-01-27 08:45:00 2024-01-27 08:45:00 Outpatient EUSEBIODAVID KATERYNA MITCHELL [id number] [facility] 2024-01-22 00:00:00 2024-01-22 00:00:00 Outpatient KATERYNA MITCHELL [id number] [facility] 2024-01-22 00:00:00 2024-01-22 00:00:00 Outpatient PREZAS, GEORGINA KATERYNA MITCHELL [id number] [facility] 2024-01-21 10:00:00 2024-01-21 10:00:00 Outpatient PREZAS, GEORGINA KATERYNA MITCHELL [id number] [facility] 2024-01-19 08:40:00 2024-01-19 08:40:00 Outpatient LAB90 KATERYNA MITCHELL [id number] Kateryna Seybold 2024-01-16 00:00:00 2024-01-16 00:00:00 Outpatient PREZAS, GEORGINA KATERYNA MITCHELL [id number] Kateryna Seybold 2024-01-14 16:00:00 2024-01-14 16:00:00 Outpatient MAX, DARIUSZ KATERYNA MITCHELL [id number] [facility] 2024-01-13 00:00:00 2024-01-13 00:00:00 Outpatient KATERYNA MITCHELL [id number] [facility] 2024-01-06 00:00:00 2024-01-06 00:00:00 (F/U) Follow Up Visit STLMLC STLC [id number] [facility] 2023-12-30 10:00:00 2023-12-30 10:00:00 Outpatient PADRON, CHI KATERYNA MITCHELL [id number] [facility] 2023-12-17 00:00:00 2023-12-17 00:00:00 Outpatient KATERYNA MITCHELL [id number] [facility] 2023-12-17 00:00:00 2023-12-17 00:00:00 Outpatient PREZAGEORGINA Birch [id number] [facility] 2023-12-16 11:15:00 2023-12-16 11:15:00 Outpatient ZEYAD ATAANNALISE KATERYNA MITCHELL [id number] [facility] 2023-12-16 10:15:00 2023-12-16 10:15:00 Outpatient 39, HOLTER KATERYNA MITCHELL [id number] [facility] 2023-12-08 10:20:00 2023-12-08 10:20:00 Outpatient NOCKWENDYCITLALLIALICE MITCHELL [id number] [facility] 2023-12-05 11:30:00 2023-12-05 11:30:00 Outpatient ZEYAD ATAANNALISE KATERYNA MITCHELL [id number] [facility] 2023-11-21 00:00:00 2023-11-21 00:00:00 Outpatient PREZASGEORGINA [id number] [facility] 2023-11-14 12:59:12 2023-11-14 12:59:12 Outpatient SFA [facility] [id number] Dave Shell Shamar 2023-11-05 11:00:00 2023-11-05 11:00:00 Outpatient KATERYNA MITCHELL [id number] [facility] 2023-11-05 10:00:00 2023-11-05 10:00:00 Outpatient KATERYNA MITCHELL [id number] Kateryna Seybdayanna 2023-11-05 09:30:00 2023-11-05 09:30:00 Outpatient KATERYNA MITCHELL [id number] [facility] 2023-11-05 08:30:00 2023-11-05 08:30:00 Outpatient KATERYNA MITCHELL [id number] [facility] 2023-11-05 00:00:00 2023-11-05 00:00:00 Outpatient LINH JEFFERS KATERYNA MITCHELL [id number] [facility] 2023-10-31 00:00:00 2023-10-31 00:00:00 Outpatient DARIUS GALLO [id number] [facility] 2023-10-30 00:00:00 2023-10-30 00:00:00 Outpatient DARIUS GALLO [id number] [facility] 2023-10-15 14:30:00 2023-10-15 14:30:00 Outpatient HERON HERNANDEZ [id number] [facility] 2023-10-08 00:00:00 2023-10-08 00:00:00 Outpatient [facility]OSTER [id number] [facility] 2023-10-07 15:15:00 2023-10-07 15:15:00 Outpatient KB MITCHELL [id number] [facility] 2023-10-07 14:45:00 2023-10-07 14:45:00 Outpatient GEORGINA FOSTER [id number] [facility] 2023-10-07 00:00:00 2023-10-07 00:00:00 (TEL) STLC STLC [id number] [facility] 2023-09-26 00:00:00 2023-09-26 00:00:00 Outpatient DARIUS GALLO [id number] [facility] 2023-09-24 10:15:00 2023-09-24 10:15:00 Outpatient GEORGINA FOSTER [id number] [facility] 2023-09-04 00:00:00 2023-09-04 00:00:00 Outpatient DARIUS GALLO [id number] [facility] 2023-09-03 09:45:00 2023-09-03 09:45:00 Outpatient BARBRA JEFFERSANNALISE KATERYNA MITCHELL [id number] [facility] 2023-08-28 00:00:00 2023-08-28 00:00:00 (TEL) [facility] [id number] [facility] 2023-08-25 00:00:00 2023-08-25 00:00:00 Outpatient NERIGUS KATERYNA MITCHELL [id number] [facility] 2023-08-25 00:00:00 2023-08-25 00:00:00 Outpatient DARIUS GALLO [id number] [facility] 2023-08-19 10:30:00 2023-08-19 10:30:00 Outpatient KATERYNA MITCHELL [id number] [facility] 2023-08-19 09:30:00 2023-08-19 09:30:00 Outpatient KATERYNA MITCHELL [id number] [facility] 2023-08-19 09:00:00 2023-08-19 09:00:00 Outpatient KATERYNA MITCHELL [id number] [facility] 2023-08-19 08:00:00 2023-08-19 08:00:00 Outpatient KATERYNA MITCHELL [id number] [facility] 2023-08-07 11:00:00 2023-08-07 11:00:00 Outpatient ZEYADLINH Kaur KATERYNA MITCHELL [id number] [facility] 2023-08-01 15:00:00 2023-08-01 15:00:00 Outpatient ARABELLA JUNE [id number] [facility] 2023-08-01 15:00:00 2023-08-01 15:00:00 Outpatient ARABELLA JUNE [id number] [facility] 2023-08-01 12:30:00 2023-08-01 12:30:00 Outpatient KATERYNA MITCHELL [id number] [facility] 2023-07-30 00:00:00 2023-07-30 00:00:00 Outpatient GEORGINA FOSTER KATERYNA MITCHELL [id number] [facility] 2023-07-24 15:00:00 2023-07-24 15:00:00 Outpatient ABHAY ASTORGA KATERYNA MITCHELL [id number] [facility] 2023-07-24 09:45:00 2023-07-24 09:45:00 Outpatient ANIBAL KATERYNA MITCHELL [id number] [facility] 2023-07-24 08:30:00 2023-07-24 08:30:00 Outpatient DARIUSZ SANTANA KATERYNA MITCHELL [id number] [facility] 2023-07-23 11:23:53 2023-07-23 11:23:53 Outpatient SFA SFA [id number] Dave Ibanez 2023-07-17 00:00:00 2023-07-17 00:00:00 Outpatient DARIUS GALLO [id number] [facility] 2023-07-12 00:00:00 2023-07-12 00:00:00 Outpatient DARIUS GALLO [id number] [facility] 2023-07-10 13:15:00 2023-07-10 13:15:00 Outpatient LINH JEFFERS KATERYNA MITCHELL [id number] [facility] 2023-07-10 13:00:00 2023-07-10 13:00:00 Outpatient 39, YOEL KATERYNA MITCHELL [id number] [facility] 2023-07-09 11:37:42 2023-07-09 11:37:42 Outpatient SFA SFA [id number] Dave Ibanez 2023-07-03 00:00:00 2023-07-03 00:00:00 Outpatient GEORGINA FOSTER [id number] [facility] 2023-07-03 00:00:00 2023-07-03 00:00:00 Outpatient MD KATERYNA RASHID [id number] [facility] 2023-07-02 00:00:00 2023-07-02 00:00:00 Outpatient GEORGINA FOSTER [id number] Kateryna Gauthier 2023-07-01 14:45:00 2023-07-01 14:45:00 Outpatient BK STEELESEY [id number] Kateryna Gauthier 2023-07-01 14:15:00 2023-07-01 14:15:00 Outpatient GEORGINA FOSTER [id number] [facility]yna Jenkinsdayanna 2023-07-01 00:00:00 2023-07-01 00:00:00 Outpatient DARIUS GALLO KATERYNA [id number] [facility] Gauthier 2023-06-27 13:45:00 2023-06-27 13:45:00 Outpatient GEORGINA FOSTER KATERYNA [id number] [facility] Jenkinsdayanna 2023-06-26 09:07:56 2023-06-26 09:07:56 Outpatient SFA SFA [id number] Dave Ibanez 2023-06-24 08:21:08 2023-06-24 08:21:08 Outpatient SFA SFA [id number] Dave Goff Shamar 2023-06-23 00:00:00 2023-06-23 00:00:00 Outpatient KATERYNA KATERYAN [id number] [facility] 2023-06-23 00:00:00 2023-06-23 00:00:00 Outpatient GEORGINA FOSTER KATERYNA [id number] [facility] 2023-06-23 00:00:00 2023-06-23 00:00:00 Outpatient KATERYNA KATERYNA [id number] [facility] 2023-06-23 00:00:00 2023-06-23 00:00:00 (TEL) [facility] [id number] [facility] 2023-06-12 13:39:43 2023-06-12 13:39:43 Outpatient SFA SFA [id number] Dave Shell Shamar 2023-06-10 08:22:41 2023-06-10 08:22:41 Outpatient SFA SFA [id number] Dave Ibanez 2023-05-28 00:00:00 2023-05-28 00:00:00 Outpatient GUS NERI KATERYNA MITCHELL [id number] [facility] 2023-05-28 00:00:00 2023-05-28 00:00:00 Outpatient DARIUS GALLO KATERYNA MITCHELL [id number] [facility] 2023-05-27 11:07:00 2023-05-27 11:07:00 Outpatient SFA SFA [id number] Dave Ibanez 2023-05-26 00:00:00 2023-05-26 00:00:00 Outpatient GEORGINA FOSTER [id number] [facility] 2023-05-22 10:41:13 2023-05-22 10:41:13 Outpatient SFA SFA [id number] Dave Ibanez 2023-05-21 00:00:00 2023-05-21 00:00:00 Outpatient GEORGINA FOSTER [id number] [facility] 2023-05-21 00:00:00 2023-05-21 00:00:00 Outpatient GEORGINA FOSTER [id number] [facility] 2023-05-20 00:00:00 2023-05-20 00:00:00 Outpatient GEORGINA FOSTER [id number] [facility] 2023-05-20 00:00:00 2023-05-20 00:00:00 [id number] 2023-05-20 00:00:00 2023-05-20 00:00:00 (TEL) [facility] [id number] [facility] 2023-05-01 00:00:00 2023-05-01 00:00:00 Outpatient GEORGINA FOSTER [id number] [facility] 2023-04-30 15:35:00 2023-04-30 15:35:00 Outpatient LAB90 KATERYNA MITCHELL [id number] [facility] 2023-04-30 14:30:00 2023-04-30 14:30:00 Outpatient ARTURENRICO KATERYNA MITCHELL [id number] [facility] 2023-04-29 00:00:00 2023-04-29 00:00:00 Outpatient JORDINZAGEORGINA Birch KATERYNA MITCHELL [id number] [facility] 2023-04-23 00:00:00 2023-04-23 00:00:00 (TEL) STLM STLMLC [id number] [facility] 2023-04-23 00:00:00 2023-04-23 00:00:00 (TEL) STLMLC STLMLC [id number] [facility] 2023-04-21 00:00:00 2023-04-21 00:00:00 Outpatient NERI, CHATANoelle MITCHELL [id number] [facility] 2023-04-16 10:45:00 2023-04-16 10:45:00 Outpatient NERI, GUS KATERYAN MITCHELL [id number] [facility] 2023-04-09 00:00:00 2023-04-09 00:00:00 Outpatient NERI, GUS KATERYNA MITCHELL [id number] [facility] 2023-04-03 00:00:00 2023-04-03 00:00:00 Outpatient PREGEORGINA LAUGHLIN KATERYNA MITCHELL [id number] [facility] 2023-04-01 00:00:00 2023-04-01 00:00:00 Outpatient KATERYNA MITCHELL [id number] [facility] 2023-04-01 00:00:00 2023-04-01 00:00:00 Outpatient DARIUS GALLO [id number] [facility] 2023-03-28 00:00:00 2023-03-28 00:00:00 Outpatient KATERYNA MITCHELL [id number] [facility] 2023-03-28 00:00:00 2023-03-28 00:00:00 Outpatient PREZASGEORGINA [id number] [facility] 2023-03-26 11:30:00 2023-03-26 11:30:00 Outpatient ENRIOC SIDDIQUI KATERYNA [id number] [facility]yna Seybold 2023-03-26 11:20:00 2023-03-26 11:20:00 Outpatient LABUsha MITCHELL KATERYNA [id number] [facility] Seybold 2023-03-26 00:00:00 2023-03-26 00:00:00 Outpatient PREZAS, GEORGINA KATERYNA KATERYNA [id number] [facility] Seybold 2023-03-24 00:00:00 2023-03-24 00:00:00 Outpatient PREZAS, GEORGINA KATERYNA KATERYNA [id number] [facility] Seybold 2023-03-24 00:00:00 2023-03-24 00:00:00 (TEL) [facility] [id number] 2023-03-12 00:00:00 2023-03-12 00:00:00 Outpatient PREZASGEORGINA KATERYNA MITCHELL [id number] [facility]ateryna Seybold 2023-03-07 13:15:00 2023-03-07 13:15:00 Outpatient NERIGUS KATERYNA MITCHELL [id number] [facility]yna Seybold 2023-03-07 00:00:00 2023-03-07 00:00:00 Outpatient NEO CARBAJAL KATERYNA MITCHELL [id number] [facility]yna Seybold 2023-03-03 00:00:00 2023-03-03 00:00:00 Outpatient PREZASGEORGINA KATERYNA MITCHELL [id number] Kateryna Seybold 2023-03-03 00:00:00 2023-03-03 00:00:00 Outpatient PREZAS GEORGINA KATERYNA MITCHELL [id number] Kateryna Seybold 2023-03-03 00:00:00 2023-03-03 00:00:00 Outpatient PREZAS, GEORGINA MITCHELL [id number] [facility]ateryna Seybold 2023-02-26 00:00:00 2023-02-26 00:00:00 Outpatient PREZAS, GEORGINA MITCHELL [id number] [facility]ateryna Seybold 2023-02-26 00:00:00 2023-02-26 00:00:00 (TEL) STLMLC STLMLC [id number] [facility] 2023-02-25 14:00:00 2023-02-25 14:00:00 Outpatient LAB90 KATERYNA MITCHELL [id number] [facility] 2023-02-25 13:30:00 2023-02-25 13:30:00 Outpatient GEORGINA FOSTER [id number] [facility] 2023-02-25 00:00:00 2023-02-25 00:00:00 Outpatient KATERYNA MITCHELL [id number] [facility] 2023-02-25 00:00:00 2023-02-25 00:00:00 Outpatient DARIUS GALLO [id number] [facility] 2023-01-24 00:00:00 2023-01-24 00:00:00 Outpatient DARREL CHOI [id number] [facility] 2023-01-21 00:00:00 2023-01-21 00:00:00 Outpatient MD KATERYNA RASHID [id number] [facility] 2023-01-20 07:30:00 2023-01-20 07:30:00 Outpatient KATERYNA MITCHELL [id number] [facility] 2023-01-15 15:30:00 2023-01-15 15:30:00 Outpatient GUS NERI [id number] [facility] 2023-01-13 11:15:00 2023-01-13 11:15:00 Outpatient KATERYNA MITCHELL [id number] [facility] 2023-01-13 00:00:00 2023-01-13 00:00:00 Outpatient KATERYNA MITCHELL [id number] [facility]yna Seybdayanna 2023-01-13 00:00:00 2023-01-13 00:00:00 Outpatient KATERYNA MITCHELL [id number] [facility] Seybdayanna 2023-01-10 00:00:00 2023-01-10 00:00:00 Outpatient DARIUS GALLO [id number] [facility]ateryna Seybold 2023-01-09 11:30:00 2023-01-09 11:30:[address], TECH KATERYNA MITCHELL [id number] [facility]yna ybdayanna 2023-01-09 00:00:00 2023-01-09 00:00:00 Outpatient MD KATERYNA RASHID [id number] [facility] ybdayanna 2023-01-03 00:00:00 2023-01-03 00:00:00 Outpatient GEORGINA FOSTER [id number] Kateryna Disha 2023-01-02 08:45:00 2023-01-02 08:45:00 Outpatient LAB90 KATERYNA MITCHELL [id number] Kateryna Disha 2023-01-02 00:00:00 2023-01-02 00:00:00 Outpatient GEORGINA FOSTER [id number] Kateryna Disha 2022-12-20 00:00:00 2022-12-20 00:00:00 Outpatient KATERYNA MITCHELL [id number] Kateryna Disha 2022-12-19 14:00:00 2022-12-19 14:00:00 Outpatient DARREL CHOI [id number] Kateryna Disha 2022-12-19 10:40:00 2022-12-19 10:40:00 Outpatient KATERYNA MITCHELL [id number] Kateryna Disha 2022-12-19 08:00:00 2022-12-19 08:00:00 Outpatient JUSTINE, MEIYU KATERYNA MITCHELL [id number] [facility]ateryna ybdayanna 2022-12-19 00:00:00 2022-12-19 00:00:00 Outpatient KATERYNA MITCHELL [id number] Kateryna Disha 2022-12-12 09:30:00 2022-12-12 09:30:00 Outpatient DARREL CHOI [id number] [facility]yna Seybdayanna 2022-12-09 00:00:00 2022-12-09 00:00:00 Outpatient GEORGINA FOSTER [id number] [facility]yna Seybdayanna 2022-12-05 00:00:00 2022-12-05 00:00:00 Outpatient GEORGINA FOSTER [id number] [facility] 2022-11-27 13:30:00 2022-11-27 13:30:00 Outpatient PREZASGEROGINA [id number] [facility]yna [facility] 2022-11-26 00:00:00 2022-11-26 00:00:00 Outpatient PREZASGEORGINA KATERYNA [id number] [facility] Jenkins[facility] 2022-11-19 10:40:00 2022-11-19 10:40:00 Outpatient KB MITCHELL KATERYNA [id number] [facility]yna Seybdayanna 2022-11-18 00:00:00 2022-11-18 00:00:00 Outpatient SABINO DARIUS KATERYNA MITCHELL [id number] Kateryna ybdayanna 2022-11-14 11:30:00 2022-11-14 11:30:00 Outpatient PREZASGEORGINA KATERYNA [id number] Kateryna Jenkinsybdayanna 2022-11-14 00:00:00 2022-11-14 00:00:00 Outpatient PREZASGEORGINA KATERYNA [id number] Kateryna Seybdayanna 2022-11-13 00:00:00 2022-11-13 00:00:00 Outpatient PREZAS, GEORGINA MITCHELL KATERYNA [id number] Kateryna Jenkinsybdayanna 2022-11-06 09:15:00 2022-11-06 09:15:00 Outpatient KELLYCHRISTIANO KATERYNA MITCHELL [id number] Kateryna Seybold 2022-10-29 08:30:00 2022-10-29 08:30:00 Outpatient KATERYNA MITCHELL [id number] [facility] 2022-10-25 00:00:00 2022-10-25 00:00:00 Outpatient JOSHUA GALLOAN KATERYNA MITCHELL [id number] Kateryna Seybdayanna 2022-09-25 10:05:00 2022-09-25 10:05:00 Outpatient KATERYNA MITCHELL [id number] Kateryna Seybold 2022-09-25 10:00:00 2022-09-25 10:00:00 Outpatient KATERYNA MITCHELL [id number] [facility] 2022-09-25 09:55:00 2022-09-25 09:55:00 Outpatient KATERYNA MITCHELL [id number] Kateryna [facility] 2022-09-25 09:00:00 2022-09-25 09:00:00 Outpatient KELLY, CHRISTIANO KATERYNA MITCHELL [id number] Kateryna [facility] 2022-09-10 10:00:00 2022-09-10 10:00:00 Outpatient OU, CHRISTIANO KATERYNA MITCHELL [id number] Kateryna [facility] 2022-09-09 10:15:00 2022-09-09 10:15:00 Outpatient LAB90 KATERYNA MITCHELL [id number] Kateryna [facility] 2022-09-09 09:30:00 2022-09-09 09:30:00 Outpatient DARIUS GALLO [id number] [facility] 2022-09-06 16:00:00 2022-09-06 16:00:00 Outpatient DARIUS GALLO [id number] [facility] 2022-09-02 13:45:00 2022-09-02 13:45:00 Outpatient LATHA ROCK [id number] Kateryna [facility] 2022-08-15 00:00:00 2022-08-15 00:00:00 Outpatient DARIUS GALLO [id number] [facility] 2022-07-10 00:00:00 2022-07-10 00:00:00 Outpatient DARIUS GALLO [id number] [facility] 2022-07-09 00:00:00 2022-07-09 00:00:00 ambulatory STLMLC STLMLC [id number] [facility] 2022-07-04 00:00:00 2022-07-04 00:00:00 ambulatory STLMLC STLMLC [id number] [facility] 2022-07-03 00:00:00 2022-07-03 00:00:00 Outpatient DARIUS GALLO [id number] [facility] 2022-07-02 00:00:00 2022-07-02 00:00:00 ambulatory STLMLC STLMLC [id number] [facility] 2022-06-26 00:00:00 2022-06-26 00:00:00 Outpatient DARIUS GALLOLUIS ALFREDO MITCHELL [id number] [facility] 2022-06-26 00:00:00 2022-06-26 00:00:00 ambulatory STLMLC STLMLC [id number] [facility] 2022-06-12 00:00:00 2022-06-12 00:00:00 Outpatient DARIUS GALLOLUIS ALFREDO MITCHELL [id number] [facility] 2022-06-07 16:10:00 2022-06-07 16:10:00 Outpatient LAB90 KATERYNA MITCHELL [id number] [facility] 2022-06-07 15:30:00 2022-06-07 15:45:00 Office Visit Darius Gallokimberleechepe Sparks [id number] [facility] 2022-05-15 00:00:00 2022-05-15 00:00:00 Outpatient DARIUS GALLO KATERYNA MITCHELL [id number] [facility] 2022-05-10 15:30:00 2022-05-10 16:00:00 Office Visit Darius Gallo [id number] [facility] 2022-05-08 00:00:00 2022-05-08 00:00:00 ambulatory STLMLC STLMLC [id number] [facility] 2022-04-16 00:00:00 2022-04-16 00:00:00 ambulatory STLMLC STLMLC [id number] [facility] 2022-04-15 00:00:00 2022-04-15 00:00:00 ambulatory STLMLC STLMLC [id number] [facility] 2022-03-28 00:00:00 2022-03-28 00:00:00 ambulatory STLMLC STLMLC [id number] [facility] 2022-03-21 00:00:00 2022-03-21 00:00:00 ambulatory STLMLC STLMLC [id number] [facility] 2022-03-13 00:00:00 2022-03-13 00:00:00 ambulatory STLMLC STLMLC [id number] [facility] 2022-03-12 00:00:00 2022-03-12 00:00:00 ambulatory STLMLC STLMLC [id number] [facility] 2022-02-26 00:00:00 2022-02-26 00:00:00 ambulatory STLMLC STLMLC [id number] [facility] 2022-02-26 00:00:00 2022-02-26 00:00:00 ambulatory STLMLC STLMLC [id number] [facility] 2022-02-12 00:00:00 2022-02-12 00:00:00 ambulatory STLMLC STLMLC [id number] [facility] 2022-02-05 00:00:00 2022-02-05 00:00:00 ambulatory STLMLC STLMLC [id number] [facility] 2022-01-30 00:00:00 2022-01-30 00:00:00 ambulatory STLMLC STLMLC [id number] [facility] 2022-01-30 00:00:00 2022-01-30 00:00:00 ambulatory STLMLC STLMLC [id number] [facility] 2022-01-30 00:00:00 2022-01-30 00:00:00 ambulatory STLMLC STLMLC [id number] [facility] 2022-01-21 00:00:00 2022-01-21 00:00:00 ambulatory STLMLC STLMLC [id number] [facility] 2022-01-21 00:00:00 2022-01-21 00:00:00 ambulatory STLMLC STLMLC [id number] [facility] 2022-01-21 00:00:00 2022-01-21 00:00:00 ambulatory STLMLC STLMLC [id number] [facility] 2022-01-18 00:00:00 2022-01-18 00:00:00 ambulatory STLMLC STLMLC [id number] [facility] 2022-01-15 00:00:00 2022-01-15 00:00:00 ambulatory STLMLC STLMLC [id number] [facility] 2022-01-08 00:00:00 2022-01-08 00:00:00 Outpatient DARIUS GALLO [id number] [facility]ateryna [facility] 2021-12-27 00:00:00 2021-12-27 00:00:00 Outpatient DARIUS GALLO [id number] [facility] 2021-12-25 00:00:00 2021-12-25 00:00:00 Outpatient DARIUS GALLO [id number] [facility] 2021-12-09 00:00:00 2021-12-09 00:00:00 Outpatient KATERYNA MITCHELL [id number] [facility] 2021-11-29 00:00:00 2021-11-29 00:00:00 Outpatient DARIUS GALLO [id number] [facility] 2021-11-27 08:15:00 2021-11-27 08:15:00 Outpatient LABUsha MITCHELL [id number] [facility] 2021-11-27 00:00:00 2021-11-27 00:00:00 Outpatient DARIUS GALLO [id number] [facility] 2021-11-27 00:00:00 2021-11-27 00:00:00 Outpatient KATERYNA MITCHELL [id number] [facility]ateryna [facility] 2021-11-26 10:45:00 2021-11-26 11:15:00 Office Visit Darius Gallo [place] 1.2.840.114 350.1.13.13 1.2.7.2.686 [id number] 0 [id number] Kateryna Gauthier 2021-11-23 00:00:00 2021-11-23 00:00:00 Outpatient YOHAN FIREDMAN [id number] Kateryna Gauthier 2021-11-05 00:00:00 2021-11-05 00:00:00 ambulatory STLMLC STLMLC [id number] [facility] 2021-11-01 00:00:00 2021-11-01 00:00:00 ambulatory STLMLC STLMLC [id number] [facility] 2021-10-29 00:00:00 2021-10-29 00:00:00 ambulatory STLMLC STLMLC [id number] [facility] 2021-10-24 00:00:00 2021-10-24 00:00:00 ambulatory STLMLC STLMLC [id number] [facility] 2021-10-23 00:00:00 2021-10-23 00:00:00 (TEL) STLMLC STLMLC [id number] [facility] 2021-10-16 00:00:00 2021-10-16 00:00:00 ambulatory STLMLC STLMLC [id number] [facility] 2021-02-28 19:00:00 2021-02-28 20:05:00 Emergency Raul Elkins [facility] 1.2.840.114 350.1.13.10 4.2.7.2.686 [id number] 2021-02-28 18:54:00 2021-02-28 18:54:00 Emergency X [facility] ERT [id number] [facility] 2020-11-12 10:27:00 2020-11-12 13:27:00 Emergency X JUSTIN, JERROD [facility] ERT [id number] [facility] 2020-11-12 10:27:00 2020-11-12 10:27:00 Emergency X JUSTIN, JERROD [facility] ERT [id number] [facility] 2020-06-28 14:56:00 2020-06-28 17:04:00 Emergency Rafia Pisano [facility] 1.2.840.114 350.1.13.10 4.2.7.2.686 [id number] 2020-06-28 14:56:00 2020-06-28 14:56:00 Emergency RAFIA NOVOA [facility] ERT [id number] [facility] 2020-06-28 00:00:00 2020-06-28 00:00:00 Orders Only Doctor Unassigned, [place] [facility] 1.2.840.114 350.1.13.10 4.2.7.2.686 [id number] 2020-03-20 18:31:57 2020-03-20 20:18:00 Emergency Errol Sharp [facility] 1.2.840.114 350.1.13.10 4.2.7.2.686 [id number] 084 [id number] 2020-03-20 18:31:57 2020-03-20 18:31:57 Emergency ERROL OVALLE [facility] ERT [id number] [facility] Results Test Description Test Time Test Comments Results Resul t Comments Source - XR FLUOROSCOPY 0-60 MIN 2019-01-14 10:27:00 Name: RACHAEL OQUENDO [facility] : 1960 Age/S: 58 / M [id number] Unit #: [id number] Loc: [place] [address] Phys: Kevin Rollins MD Acct: [id number] Dis Date: Status: [facility] PHONE #: [phone] Exam Date: 01/14/2019 0910 FAX #: Reason: PORT A CATH PLACEMENT EXAMS: CPT: [id number] XR FLUOROSCOPY 0-60 MIN 47712 Fluoro Time: 8 SEC DAP (Gy m2): [...] PAGE 1 Signed Report Name: RACHAEL OQUENDO [place] : 1960 Age/S: 58 / M [address] Unit #: [id number] Loc: [place] [address] Phys: Kevin Rollins MD Acct: [id number] Dis Date: Status: [facility] PHONE #: [phone] Exam Date: 01/14/2019 0910 FAX #: Reason: PORT A CATH PLACEMENT EXAMS: CPT: [id number] XR FLUOROSCOPY 0-60 MIN 51221 Fluoro Time: 8 SEC DAP (Gy m2): Air Kerma (mGy): (Continued) Technologist: Sandy Lucero, RT(R)(CT); Mary Carbajal RT(R) [facility] Date/Time: 01/14/2019 (1027) t.JH12 Orig Print D/T: S: 01/14/2019 (1030) PAGE 2 Signed Report - XR CHEST 1 [id number] 10:04:00Name: RACHAEL OQUENDO [place] : 1960 Age/S: 58 / M [address] Unit #: [id number] Loc: [place] [address] Phys: Kevin Rollins MD Acct: [id number] Dis Date: Status: [facility] PHONE#: [phone] Exam Date: 01/14/2019 0955 FAX #: Reason: port placement EXAMS: CPT: [id number] XR CHEST 1 V 30225 Fluoro Time: DAP (Gy m2): Air Kerma (mGy): EXAM: - XR CHEST 1 V HISTORY: Port placement Location code:C3 COMPARISON: None available time of interpretation. FINDINGS: Single AP view ofthe chest is provided. Right IJ Port-A-Cath with tip projecting about the distal SVC level is present. Added opacity along the right paratracheal region is seen. Heart size and vascularity are withinnormal limits. The lungs are clear of focal consolidation. No effusion, pneumothorax, or acute osseous abnormality. IMPRESSION: 1. Right IJ Port-A-Cath tip projects about the distal SVC level withoutpneumothorax. 2. Added opacity in the right paratracheal [...] Rollins MD PAGE 1 Signed Report [facility] [place] [facility]1960 Age/S: 58 / M [address] Unit #: [id number] Loc: [place] [address] Phys: Kevin Rollins MD Acct: [id number] Dis Date: Status: [facility] PHONE #: [phone] Exam Date: 01/14/2019 0955 FAX #: Reason: port placement EXAMS: CPT: [id number] XR CHEST 1 V 53011 Fluoro Time: DAP (Gym2): Air Kerma (mGy): (Continued) Technologist: Rachael Izquierdo, RT(R)(CT); Mary Carbajal RT(R) [facility] Date/Time: 01/14/2019 (1004) tSEBASR.CB5 Orig Print D/T: S: 01/14/2019 (1007) PAGE 2 Signed ReportGLUCOSE BEDSIDE OQPCBRR6483-62-57 07:20:00* Test Item Value Reference Range Interpretation Comme nts GLUCOSE BEDSIDE TESTING (minerva t code = GLUBED) 137 mg/dL 70-110 H YPTT8082-60-78 16:52:00 RUN DATE: 01/06/19 [facility] - LAB *LIVE* PAGE 1 RUN TIME: 165 Specimen Inquiry RUN USER: INTERFACE PATIENT: RACHAEL OQUENDO LOC: [place] U #: [id number] AGE/SX: 58/M ROOM: [facility] RE12/31/18[facility] DR: Kevin Rollins MD : 64 BED: 1 DIS: 01/02/19 STATUS: DIS IN TLOC: - SPEC #: [id number] RECD: 01/01/19 STATUS: MARCIA REQ #: [id number] ONELIA: 12/31/18 [facility] DR: Kevin Rollins MDENTERED: 01/01/19 SP TYPE: SURG OTHR DR: Shamar Abreu ORDERED: SURG PATH LVL 6 COPIES TO:Shamar Abreu [address] [place] [address] [place] [address] [address] [address] HISTOLOGY: TISSUE ID BLK PCS CESAR LEV PROCEDURE DISPOSITION ____ ___ ___ ___ SIGMOID COLON A 1-151 PROCEDURES: SURG PATH LVL 6 (01/01/19-915) TISSUES: A. SIGMOID COLON - SIGMOID COLON AND ANASTOMATIC COLON RINGS CLINICAL HISTORY COLON RECTAL CANCER -C18.9 CPT CODES CPT CODE(S): 76817 , , , , , , FINAL DIAGNOSIS Colon, sigmoid, anastomotic donuts, partial colectomy: MODERATELY DIFFERENTIATED COLORECTAL ADENOCARCINOMA, 6 CM GREATEST DIMENSION 7 LYMPH NODES POSITIVE FOR METASTATIC CARCINOMA (7/10) MARGINS NEGATIVE CONTINUED ON NEXT PAGE RUN DATE: 01/06/19 [facility] - LAB *LIVE* PAGE 2 RUN TIME: 1652 Specimen Inquiry RUN USER: INTERFACE SPEC #: [id number] PATIENT: RACHAEL OQUENDO #[id number] (Continued) GROSS DESCRIPTION Sigmoid colon and anastomotic colon rings. Received in formalin is a 15.5 cm in length segment of sigmoid colon which is 4.0 cm in circumference at the proximal margin and 2.0 cm in circumference in the distal margin. A 17.0 x 7.0 x 4.5 cm mesentery is present along theentire border of the segment of sigmoid colon. There is a iverson-pink lesion, measures 6.0 x 5.5 x 1.5cm with serpiginous borders. The lesion is 0.1 cm from deep margin/serosal layer, 1.7 cm from the proximal margin and 6.0 cm from the distal margin. In the proximal 1/3 of the tumor occupies whole cir cumference of the colon and in the distal 2/3 the tumor spares 0.9 cm of the colonic circumference and the lumen is narrowed to approximately 0.3 cm in diameter. The proximal colon is dilated. The remainder of the mucosa is unremarkable. There are extensive adhesions in the peritoneal layer with mes entery. The mesentery is thoroughly examined and multiple/more than ten lymph nodes are present in the peritoneal tissue, some are matted, the largest measures 0.8 cm. Additionally received are two anastomotic colonic rings, one measures 1.8 cm in length x 2.0 cm in diameter and the second measures1.3 cm in length and 2.3 cm in diameter. Section code: A1-A2 Entire circumference margin of proximal end A3 Entire circumference of distal margin A4-A5 Joint Filler sections of the lesion A6 Tumor with normal mucosa of proximal margin A7 Tumor with normal mucosa of closest distal margin A8 Normalmucosa A9 Joint Filler sections of largest anastomotic ring A10 Joint Filler sections of second anastomotic ring A11 Joint Filler sections of mesentery A12-A14 Joint Filler sections of mesentery with possible matted lymph nodes A15-A20 Entire lymph nodes, one lymph node each A21 Two lymph nodes A22 Two lymph nodes, serially sectioned A23 Three lymph nodes Grossing performed at [facility], [address] [place] [address], [address], [place], [place] [address]. Clinical Data Management Manager: Hany Haji M.D. MICROSCOPIC DESCRIPTION Sigmoid [...] are identified.The carcinoma CONTINUED ON NEXT PAGE ------- -----RUN DATE: 01/06/19 [facility] - LAB *LIVE* PAGE 3 RUN TIME: 1652 Specimen Inquiry RUN USER: INTERFACE SPEC #: [id number] PATIENT: RACHAEL OQUENDO #[id number] (Continued) MICROSCOPIC DESCRIPTION (Continued) demonstrates moderately differentiated [...] Primary Tumor (T): pT3 Lymph Node (N): lA9qAbztqih Metastasis (M): Stage Grouping: IIIC Surgical Margins: Negative SYNOPTIC REPORT Procedure:Sigmoidectomy Tumor site: Sigmoid colon Tumor size: 6 [...] Regional lymph nodes: pN2b Signed SIGNATURE ON [facility] [place] 01/06/19 1652 ENDOF REPORT GLUCOSE BEDSIDE [id number] 17:20:00* Test Item Value Reference Range Interpretation Comme nts GLUCOSE BEDSIDE TESTING (minerva t code = GLUBED) 103 mg/dL 70-110 N GLUCOSE BEDSIDE NPTLXSN2800-47-05 11:28:00* Test Item Value Reference Range Interpretation Comme nts GLUCOSE BEDSIDE TESTING (minerva t code = GLUBED) 87 mg/dL 70-110 N GLUCOSE BEDSIDE [id number] 07:23:00* Test Item Value Reference Range Interpretation Comme nts GLUCOSE BEDSIDE TESTING (minerva t code = GLUBED) 108 mg/dL 70-110 N GLUCOSE BEDSIDE [id number] 20:29:00* Test Item Value Reference Range Interpretation Comme nts GLUCOSE BEDSIDE TESTING (minerva t code = GLUBED) 99 mg/dL 70-110 N GLUCOSE BEDSIDE [id number] 16:28:00* Test Item Value Reference Range Interpretation Comme nts GLUCOSE BEDSIDE TESTING (minerva t code = GLUBED) 84 mg/dL 70-110 N GLUCOSE BEDSIDE IEMFQAZ8236-34-00 11:30:00* Test Item Value Reference Range Interpretation Comme nts GLUCOSE BEDSIDE TESTING (minerva t code = GLUBED) 106 mg/dL 70-110 N GLUCOSE BEDSIDE KZPDUFK4708-64-88 07:38:00* Test Item Value Reference Range Interpretation Comme nts GLUCOSE BEDSIDE TESTING (minerva t code = GLUBED) 120 mg/dL 70-110 H CBC W/AUTO [id number] 06:24:00* Test Item Value Reference Range Interpretation [...] = MDIFF) NO DIFF/SCN CRITERIA GLUCOSE BEDSIDE UYXRJQY0829-88-92 21:45:00* Test Item Value Reference Range Interpretation Comme nts GLUCOSE BEDSIDE TESTING (minerva t code = GLUBED) 135 mg/dL 70-110 H BASIC METABOLIC [id number] 18:20:00* Test Item Value Reference Range Interpretation [...] code = CA) 8.1 MG/DL 8.5-10.1 L KTOZVDKEQGR6066-16-09 18:20:00* Test Item Value Reference Range Interpretation Comme nts PHOSPHOROUS (test code = PHOS) 3.2 MG/DL 2.5-4.9 N [id number] 18:20:00* Test Item Value Reference Range Interpretation Comme nts MAGNESIUM (test code = MAG) 1.7 MG/DL 1.8-2.4 L GLUCOSE BEDSIDE [id number] 16:54:00* Test Item Value Reference Range Interpretation Comme nts GLUCOSE BEDSIDE TESTING (minerva t code = GLUBED) 160 mg/dL 70-110 H GLUCOSE BEDSIDE [id number] 14:29:00* Test Item Value Reference Range Interpretation Comme nts GLUCOSE BEDSIDE TESTING (minerva t code = GLUBED) 136 mg/dL 70-110 H GLUCOSE BEDSIDE RGYBXZS9649-23-73 07:31:00* Test Item Value Reference Range Interpretation Comme nts GLUCOSE BEDSIDE TESTING (minerva t code = GLUBED) 125 mg/dL 70-110 H MRI Knee Right Wo ContMRI Knee Right Wo Cont Notes Date/Time Note Provider Source 2024-02-04 08:45:10 2186-55-89B74:45:10F ormatting of this note is different from the original.Jodi Faulkner ComplaintPatient presents withShoulder PainLeft shoulder pain 42719-8Esjcw JnuwCW6371-36-56V94:52:49Nurse NoteTXT1.2.840.892126.1.13.131.2.7. 2.560760|339011865AWRnrvtvlua for patient eavg33714-3Mjuwn NoteLNNARRATIVEFormatted C-CDA narrative textGundersen [facility] [facility] [id number] AG0901-76-12H07:52:491.2.840.375234 .1.72.3.15|1.2.840.114785.1.13.131. 2.7.2.727879_409352020 [facility] 2024-01-27 09:03:59 1582-61-81E29:03:59F ormatting of this note might be different from the original.No chief complaint on file.Anita Real 54429-2Ktcrg QaunKP8280-72-44K43:49:50Nurse NoteTXT1.2.840.322860.1.13.131.2.7. 2.615719|635193634CZKcapmzdmy for patient ilyk88794-1Xqind NoteLNNARRATIVEFormatted C-CDA narrative textGundersen [facility] and Clinics2727 [facility] BrenhamTXTX7702577025US MD1264-58-80N86:49:501.2.840.667731 .1.72.3.15|1.2.840.400574.1.13.131. 2.7.2.727879_407551395 [facility] 2023-07-24 08:26:56 8813-11-42Y00:26:56F ormatting of this note is different from the original.Chief Complaint Patient presents with Oncology [place] [address]-0Rvzjv OuflEY0019-04-64W93:27:17Nurse NoteTXT1.2.840.932865.1.13.131.2.7. 2.999103|038912169KPLugworqbi for patient dula58872-6Egwpy NoteLNGundersen Boscobel Area Hospital and Clinics2727 [facility] [id number] TM4699-56-35G51:27:171.2.840.864780 .1.72.3.15|1.2.840.833884.1.13.131. 2.7.2.727879_366756795 [facility] 2023-07-01 14:20:33 1168-85-60V90:20:33F ormatting of this note might be different from the original.Patient is here for 4 month follow up. VSS 74009-5Lhfbu LsxfQL5224-00-00R00:20:47Nurse NoteTXT1.2.840.081243.1.13.131.2.7. 2.128665|375911376DHAudkiqnsm for patient pyxt77176-1Nxmeg WrjmLL239388020Fdeip [facility]2727 [facility].LEVAOMMEVCMLQZURFR0465682895YT VM7164-99-26Y56:20:471.2.840.645283 .1.72.3.15|1.2.840.243185.1.13.131. 2.7.2.727879_362726968 Saumya Amos [facility] 2019-01-18 12:58:00 FJpllzawwjg572211603 HOZWYpk3t2IX1yj TImD9SmmD1L9PpMs/Cristela/fgda3lE0NqkG n5G8lyurpkPHz8349-98-41B98:58:07450 -[address] [address] PATIENT NAME: RACHAEL OQUENDO ADMIT DATE: 01/14/19ACCOUNT NO: [id number] ROOM NO: AGE: 58 REPORT TYPE: OPERATIVE REPORT SEX: M ADMITTING PHYSICIAN: ATTENDING PHYSICIAN: Kevin Rollins MD OPERATION DATE: 01/14/2019 PREOPERATIVE DIAGNOSIS: Stage III colon cancer in need for long-term centralvenous access. POSTOPERATIVE DIAGNOSES:1. Stage III colon cancer in need for long-term central venous access.2. Status post ultrasound-guided placement of a right internal msvfbgrQyan-C-Quht placement. PROCEDURE PERFORMED: Ultrasound-guided placement of the right internal zbdimxdLupe-Z-Wdpl and fluoroscopic interpretation. SURGEON: Kevin Rollins MD. BACTERIOLOGY RESEARCH ASSISTANT: None. ANESTHESIA: General, LMA plus local. INDICATIONS [...] immediate complications. SPECIMENS REMOVED: None. IMPLANTS: An 8-[place] PowerPort catheter. DRAINS: None. ESTIMATED BLOOD LOSS: Less than 10 mL. PATIENT NAME: RACHAEL OQUENDO DISPOSITION: At the conclusion of the case, the patient was awakened fromanesthesia and LMA was removed. The patient was transferred to the PACU in faircondition for a postoperative chest x-ray to be discharged home per protocol. Dictated By: Kevin Rollins MD WT: OP:L.JUVENTINO/GOVIND/NTSDD: 01/18/2019 12:58:34DT: 01/18/2019 13:54:24Conf#: [id number]/DID#: [id number] Authenticated by Kevin Rollins MD On 02/02/2019 01:34:33 PM at 1334 PATIENT NAME: RACHAEL OQUENDO kozbas0770-62-34I80:54:00L.WPP34844 311-0042AVAvailable for patient kpxtSRQKEFXMNUOTOV9641-02-23V13:35: 09 [facility] 2019-01-14 17:04:00 MAtovclcgmc2387259eW UAEZppJlXoiF5R3 mk2ej2T6qOFY2jRi2azpUJK/CBzpe4ZfX58 e3EOHAZzziBv1589-82-01K11:04:00 [facility] ([facility])Post Anesthesia EvaluationREPORT#:[id number] REPORT STATUS: SignedDATE:01/14/19 TIME:1704 PATIENT: RACHAEL OQUENDO UNIT #: [id number]#: [id number] ROOM/BED:: 62 AGE: 58 SEX: M ATTEND: Kevin Rollins MDADM AUTHOR: Filomena Carvalho MD * ALL edits [...] 36.4 54 16 109/61 96 Room air 01/14 1035 36.2 56 16 109/66 96 Room air / 1020 59 16 110/64 98 Room air / 1015 56 16 116/66 100 03/ 1010 57 13 114/66 100 Room air / 1005 58 13 110/67 100 Simple 10.094832 mask / 1000 57 12 109/61 100 Simple 10.671126 mask / 0955 61 15 107/61 100 Simple 10.644695 mask / 0950 54 11 104/56 99 Simple 10.486707 mask / 0946 Simple 10.450741 mask / 0945 55 11 111/55 99 03/07 0940 36.3 54 12 124/65 99 Simple 10.818381 mask /07 0711 36.5 54 18 103/63 96 Room air Cardiovascular: CV system stable, vital signs stableRespiratory/Airway: respiratory system stable, maintains without supportPain: adequately controlledHydration: adequate, euvolemicTemp status: greater than 96.8F, normothermicPresence of N/V: noAnesthesia complications: noOther changes requiring f/u: noneConclusions: no apparent anes. issues, outpts eval prior DC home at 1705 RPT #: [id number] OF REPORT CLClinical rqdv7360-83-23D77:04:00L.RSKT464804 -0138AVAvailable for patient xcidXTWKSXPMHREEYK9601-34-99V19:04: 52 [facility] 2019-01-14 09:51:00 HGqtrgpebyo0720854A3 Dz+0GpTPHkLZLot QqM/MLJSVeq7BelJWuKF4kHZOwVaFaV5Rky iPPqwPEcEMjt0318-88-36P08:51:00 [facility] ([facility])Brief Discharge Note w/Med RecREPORT#:[id number] REPORT STATUS: SignedDATE:01/14/19 TIME:950 PATIENT: RACHAEL OQUENDO UNIT #: [id number]#: [id number] ROOM/BED:: 62 AGE: 58 SEX: M ATTEND: [...] NEEDED. as needed for pain not to tlrotb8585 MG per day Qty = 10 No Refills ObjectiveVS/I OLast Documented: Result Date Time O2 Delivery Simple mask 01/14 946 O2 Flow Rate 10.508935 01/14 946 Pulse Ox 96 01/14 711 [...] NoFollow-up appointment(s):10 days at 0953 RPT #: [id number] OF REPORT DSDischarge facodcx5333-10-09G00:51:00L.STOW758 [address]60XCRsnwveibr for patient nkbuBITHTYQMIXMVDQ6827-56-96C78:52: 50 [facility] 2019-01-14 09:43:00 DVjxospxqry2087097UI v9uXpMErhvjSclE taR7/I52zPYPTGR9gyJgXZEmlyQjkiul3i/ morSvB2DbOxB0860-21-56X81:43:00 [facility] ([facility])Bedside Procedure NoteREPORT#:[id number] REPORT STATUS: SignedDATE:01/14/19 TIME:09 PATIENT: RACHAEL OQUENDO UNIT #: [id number]#: [id number] ROOM/BED:: 62 AGE: 58 SEX: M ATTEND: Kevin Rollins [facility] AUTHOR: Kevin Rollins MD * ALL edits [...] well, plan to D/C home at 0947 RPT #: [id number] OF REPORT PNProcedure gvdr5245-09-97K29:43:00L.IGFV081587 0AVAvailable for patient scaiPIEDATFXVYASFN5550-19-57Z11:47: 20 [facility] 2019-01-01 22:43:00 FAktxpmnyiu8761296/x mLFuABdn45cbZC+ MWHej5WqRG+yhGFBxDSM8G5OfGe8czeeTH2 ii0Bzu1/Z7PH1625-64-07I50:43:00 [facility] ([facility])Brief Discharge Note w/[facility][id number] REPORT STATUS: SignedDATE:01/01/19 TIME:2242 PATIENT: RACHAEL OQUENDO UNIT #: [id number]#: [id number] [facility] AGE: 58 SEX: M ATTEND: Kevin [...] Ox 98 01/02 1619 B/P 124/83 01/02 1619 B/P Mean 96.7 01/02 1619 O2 Delivery Room air 01/02 1619 Temp 98.6 01/02 1619 Pulse 69 01/02 1619 Resp 18 01/02 1619 O2 Flow Rate 10.059460 12/31 1430 Brief Discharge Note w/Med RecPCP:PCP: Shamar Abreu Problem List/A P: 1. History of low anterior resection of rectum 2. Colon cancer Free Text A P:58 yo M s/p lap LAR Discharge to: homeDischarge diagnosis:Same as aboveActivity: as tolerated, light duty, no liftingDiet: diabeticWound/dressing care: Clean wound dailyPt. condition on discharge: stablePrescriptions: l-fzfmduqyjUulfqc-ge appointment(s):7-10 days at [address] [facility] #: [id number] OF REPORT DSDischarge mvsuatj9172-46-24G06:43:00L.ZDZD876 [id number] for patient pmubPTBGCLTKUTDEHI9290-09-33W93:12: 05 [facility] 2019-01-01 13:36:00 [id number] 6yySBkXmslKqRUd B5e7AL202SrSvDChNrI8Moa+Ak1fFpbF7jy sv0d1ATjo7sa0701-77-37G38:36:00 [facility] Progress NoteREPORT#:[id number] REPORT STATUS: SignedDATE:01/01/19 TIME:1336 PATIENT: RACHAEL OQUENDO UNIT #: [id number]#: [id number] [address] [birth year] AGE: 58 SEX: M ATTEND: Kevin Rollins [facility] AUTHOR: Kevin Rollins MD * ALL edits [...] Resp 18 01/01 1109 O2 Flow Rate [id number] 12/31 1430 Vital Signs Date Temp Pulse [...] MG DAILY PO Lactated Ringer's 1,000 ML .[id number] IV Enoxaparin Sodium 40 MG Q24H SUBQ Influenza Virus Vaccine 60 MCG ASDIR IM Hydromorphone HCl 0.2 MG Q3H PRN PRN IV Lactated Ringer's 1,000 ML .[id number] IV (DC) Ondansetron HCl 4 MG Q6H [...] no guardingGenitourinary - Male: no foleyExtremities: moves allNeuro/RIM FIRE PRIMING TOOL SETTER: alert, normal speechSkin: dry, intact, normal color, [...] (Auto) (20.5 - 51.1 %) 17.5 L [place] % (Auto) (1.7 - 9.3 %) 9.3 Eos % (Auto) (0.0 - 6.0 %) 0.1 Baso % (Auto) (0.0 - 2.0 %) 0.1 Neut # (Auto) (1.8 - 7.6 K/mm3) 7.73 H Lymph # (Auto) (0.6 - 3.0 K/mm3) 1.9 [place] # (Auto) (0.2 - 1.5 K/mm3) 1.0 Eos # (Auto) (0.0 - 0.4 K/mm3) 0.0 Baso # (Auto) (0.0 - 0.2 K/mm3) 0.0 Add Manual Diff (CRITERIA DIFF/SCN) NO Results: labs reviewed, vital signs stable, current med profile rev'd Treatment Prophylaxis Treatment ProphylaxisFoley documentation:The data below has been imported from nursing documentation. Any exceptions havebeen noted below under Provider comments. Nursing Documentation Date easton inserted: 12/31/18 Date easton discontinued: 01/01/19 Provider comments: [] Diagnosis, Assessment PlanProblem List/A P: 1. History of low anterior resection of rectum 2. Colon cancer Free Text A P:58 yo M s/p lap low anterior resection POD#11. Awaiting return of bowel function to advance diet.2. Resume home meds3. Pain management4. Encourage ambulation.5. Pathology pending. at [address] [facility] #: [id number] OF REPORT PRProgress Wnrq0792-80-55U29:36:00L.[id number] -0098AVAvailable for patient vmzsBARCNZPGJDYAAE2291-74-06J55:40: 54 [facility] 2018-12-31 15:07:00 [id number] 6Sl5tmcjSFVod2n 9dW8lEzzzfVi2rPgmSKd1IMuTPJQy1E4DuB cJhpZ4iWE6g76219-07-37N53:07:620889 -0055 [facility] [id number] [place] [id number] PATIENT NAME: RACHAEL OQUENDO ADMIT DATE: 12/31/18ACCOUNT NO: [id number] ROOM NO: L.S215 AGE: 58 REPORT TYPE: OPERATIVE REPORT SEX: M ADMITTING PHYSICIAN: Kevin Rollins MD ATTENDING PHYSICIAN: Kevin Rollins MD OPERATION DATE: 12/31/2018 PREOPERATIVE DIAGNOSIS: Colon cancer. POSTOPERATIVE DIAGNOSES: 1. Colon cancer.2. Status post laparoscopic low anterior resection. PROCEDURE PERFORMED: Laparoscopic low anterior resection. SURGEON: Kevin Rollins MD BACTERIOLOGY RESEARCH ASSISTANT: LOAN Camargo ANESTHESIA: General endotracheal anesthesia plus [...] in aretrocolic fashion. After completion of the xxeccz-jc-esooczr direction, theatraumatic grasper and laparoscopic Kittner were [...] into the peritoneal cavity. Irrigation withthe suction staffing operations manager revealed no evidence of active bleeding. After [...] mL of saline and evacuated with thesuction staffing operations manager. Then, my operational assistant went below and perform successivedilations of [...] function. Dictated By: Kevin Rollins MD WT: OP:LDANIELLE/GOVIND/NTSDD: 12/31/2018 15:07:59DT: 12/31/2018 16:54:31Conf#: [id number]/DID#: [id number] Authenticated by Kevin Rollins MD On 01/05/2019 02:30:53 PM at 1431 PATIENT NAME: RACHAEL OQUENDO ojjhyh0157-95-21Q57:54:00L.[id number] [id number] for patient bokwFAJLTISXSGDMKU9468-77-72Q39:30: 55 [facility] 2018-12-31 14:35:00 [id number] E7ff8qqJd554rfl zruz6xKFkY60qe6k5Hqo80EQh64dPE/ktAt mx6/Hhs8GAa94423-95-95O26:35:00 [facility] ([facility])Bedside Procedure NoteREPORT#:[id number] REPORT STATUS: SignedDATE:12/31/18 TIME:1435 PATIENT: RACHAEL OQUENDO UNIT #: [id number]#: [id number] ROOM/BED: [facility]DOB: [birth year] AGE: 58 SEX: M ATTEND: Kevin Rollins [facility] AUTHOR: Kevin Rollins MD * ALL edits or amendments must be made on the electronic/computer document * Bedside Procedure Note Bedside Procedure NoteStart date: 12/31/18Start time: 0845Pre-procedure diagnosis:Colon cancerPost-procedure diagnosis:Same as aboves/p lap low anterior resectionProcedure performed: Laparoscopic low anterior resectionPerformed by:Dr. Kevin Rollins, JASONssistant(s): Lucho Buckley, LSAIndications:58 yo M with a distal colon cancer.Time [...] proc. well, return to floor at 1442 RPT #: [id number] OF REPORT PNProcedure tncy4378-69-04R90:35:00L.[id number] -0115AVAvailable for patient pnmoYVAYTFNKGPEVUY2836-88-89I00:42: 23 [facility] 2018-12-31 13:56:00 [id number] GIIDOXQANw5g66I dHKd0cTtqP9Q8yIfQ2YkAn6oqfjphKcMiMM XfZ08Q0173XC4160-93-08B28:56:00 [facility] ([facility])Post Anesthesia EvaluationREPORT#:[id number] REPORT STATUS: SignedDATE:12/31/18 TIME:1356 PATIENT: RACHAEL OQUENDO UNIT #: [id number]#: [id number] [address] [birth year] AGE: 58 SEX: M ATTEND[facility] AUTHOR: Divina Crabtree CRNA * ALL edits [...] 12/31 1345 68 12 117/64 99 Simple 10.809709 mask 12/31 1340 37.6 74 12 116/64 100 Simple 10.588614 mask 12/31 0642 36.7 56 18 131/77 98 Room air 0.042538 Cardiovascular: no change, CV system stable, vital signs stableRespiratory/Airway: respiratory system stable, maintains without supportPain: adequately controlledHydration: adequateTemp status: normothermicPresence of N/V: noAnesthesia complications: noOther changes requiring f/u: noneConclusions: no apparent anes. issues at 1357 RPT #: [id number] OF REPORT CLClinical rviv7418-20-15E38:56:00L.[id number] VAvailable for patient jrwyKWXWDKEUYLDKIL8022-43-79F84:57: 01 [facility] 2018-12-29 16:15:00 [id number] 6UrqPOl1HT3EiKR ZZI6PyILezSiVLI1ZJM/REFEKyGSyiHcVyT o7jmhEMlMlv50988-63-30C03:15:146767 -0029 [place] [address] PATIENT NAME: RACHAEL OQUENDO ADMIT DATE: ACCOUNT NO: [id number] ROOM NO: AGE: 58 REPORT TYPE: eELECTROCARDIOGRAM SEX: M ADMITTING PHYSICIAN: Kevin Rollins MD ATTENDING PHYSICIAN: Kevin Rollins MD Order:[id number] Reason : PRE OP Test Date/Time Stamp:FriDec [...] Kevin Rollins Confirmed by:DEEPIKA ROBLEDO MD at 0970 PATIENT NAME: RACHAEL OQUENDO . [id number] for patient xoenUKUFVYDZLGFWCO5059-31-66X14:59: 09 HCAPM"
[2024-06-01] MEDS ORDERED: HYDROMORPHONE HCL 1 MG/ML INJ ONE (18:53)
[2024-06-01] MEDS ORDERED: dexAMETHasone 10 MG/ML VIAL ONE (18:53)
--- NOTE | 2024-06-01 19:34 | EDPHYS ---
Physician Documentation [facility] Name: Taiwo Chery Age: 63 yrs Sex: Male : 1960 Arrival Date: 06/01/2024 Time: 17:39 Bed Treatment Private MD: ED Physician Marek Veras HPI: 06/01 18:35 This 63 yrs old Male presents to ER via Wheelchair with complaints of Low Back cp Pain. 18:35 The patient presents with pain that is chronic. The symptoms are located in the low cp back. 18:35 Onset: The symptoms/episode began/occurred chronic with pain worse over past couple cp days. spouse reports patient comes to ED when pain worsens. no injuries reported. 18:35 Associated signs and symptoms: Pertinent negatives: abdominal pain, chest pain, cp constipation, dysuria, fever, weakness. Historical: - Allergies: 18:17 No Known Allergies; mb9 - Home Meds: 18:17 None [Active]; mb9 - PMHx: 18:17 chronic back pain; colon cancer-in remission; diabetes mellitus; Hypertensive disorder; mb9 - PSHx: 18:17 None; mb9 - Immunization history:: Adult Immunizations up to date. - Infectious Disease History:: Denies. - Social history:: Smoking status: Patient denies any tobacco usage or history of. ROS: 18:40 Back: Positive for pain at rest, pain with movement, cp 18:40 Cardiovascular: Negative for chest pain, edema, palpitations, cp 18:40 Constitutional: Negative for body aches, chills, fever, poor PO intake, cp 18:40 Neck: Negative for pain with movement, pain at rest, 18:40 Respiratory: Negative for cough, shortness of breath, wheezing, 18:40 Abdomen/GI: Negative for abdominal pain, nausea, vomiting, and diarrhea, constipation, bowel incontinence, 18:40 : Negative for urinary symptoms, difficulty urinating, bladder incontinence, testicular pain 18:40 Neuro: Negative for altered mental status, headache, numbness, weakness, 18:40 All other systems are negative, Exam: 18:45 Constitutional: The patient appears in no acute distress, alert, awake, cp non-diaphoretic, non-toxic, well developed, well nourished, uncomfortable, 18:45 Head/Face: Normocephalic, atraumatic. cp 18:45 Eyes: Periorbital structures: appear normal, Conjunctiva: normal, no exudate, no injection, Sclera: no appreciated abnormality, Lids and lashes: appear normal, bilaterally, 18:45 ENT: External ear(s): are unremarkable, Nose: is normal, Mouth: Lips: moist, Oral mucosa: pink and intact, moist, Posterior pharynx: Airway: no evidence of obstruction, patent, 18:45 Chest/axilla: Inspection: normal, 18:45 Cardiovascular: Rate: normal, Edema: is not appreciated, JVD: is not appreciated, 18:45 Respiratory: the patient does not display signs of respiratory distress, Respirations: normal, no use of accessory muscles, no retractions, labored breathing, is not present, Breath sounds: are clear throughout, no decreased breath sounds, no stridor, no wheezing, 18:45 Abdomen/GI: Inspection: abdomen appears normal, Palpation: abdomen is soft and non-tender, in all quadrants, 18:45 Back: pain, that is severe, ROM is painful, with all movement, 18:45 Neuro: Orientation: to person, place \T\ time. Mentation: is normal, Motor: moves all fours, no focal deficits, Sensation: no obvious gross deficits, Vital Signs: 18:16 Pulse 74; Resp 18; Temp 98.8; Pulse Ox 100% ; Weight 101.6 kg; Height 5 ft. 4 in. ; mb9 Pain 10/10; 18:59 BP 110 / 88; mb9 19:39 BP 107 / 74; Pulse 70; Resp 18; Pulse Ox 100% on R/A; mb9 18:16 Body Mass Index 38.45 (101.60 kg, 162.56 cm) mb9 18:16 Pain Scale: Adult mb9 MDM: 18:11 Patient medically screened. cp 18:46 Differential diagnosis: sciatica, contusion, Herniated disc UTI, sepsis, exacerbation cp chronic pain. 19:33 Data reviewed: vital signs, nurses notes, and as a result, I will discharge patient. cp 19:33 I considered the following discharge prescriptions or medication management in the cp emergency department Medications were administered in the Emergency Department. See MAR. Counseling: I had a detailed discussion with the patient and/or guardian regarding the historical points, exam findings, and any diagnostic results supporting the discharge/admit diagnosis, to return to the emergency department if symptoms worsen or persist or if there are any questions or concerns that arise at home. Response to treatment: the patient's symptoms have markedly improved after treatment, and as a result, I will discharge patient. 06/01 18:31 Order name: Blood Pressure Recheck; Complete Time: 18:53 cp Administered Medications: 18:59 Drug: HYDROmorphone IM 1 mg IM once Route: IM; Site: left deltoid; mb9 19:34 Follow up: Response: No adverse reaction mb9 18:59 Drug: Dexamethasone IM 10 mg IM once Route: IM; Site: right deltoid; mb9 19:34 Follow up: Response: No adverse reaction mb9 Disposition Summary: 06/01/24 19:33 Discharge Ordered Notes: Location: Home cp Problem: chronic cp Symptoms: have improved cp Condition: Stable cp Diagnosis - Dorsalgia, unspecified cp Followup: cp - With: Private Physician - When: 2 - 3 days - Reason: Recheck today's complaints Discharge Instructions: - Discharge Summary Sheet cp - Chronic Back Pain cp Forms: - Medication Reconciliation Form cp - Antibiotic Education cp - Prescription Opioid Use cp - Patient Portal Instructions cp - Leadership Thank You Letter cp Addendum: 06/05/2024 05:08 Co-signature as Attending Physician, Marek Veras MD I agree with the assessment and c pham plan of care. Signatures: Marek Veras MD MD cha Page, Corey, PA PA cp Wilkerson, Mary Beth, RN RN mb9
--- NOTE | 2024-06-01 19:34 | ER ---
Nurse's Notes [facility] Name: Taiwo Chery Age: 63 yrs Sex: Male : 1960 Arrival Date: 06/01/2024 Time: 17:39 Bed Treatment Private MD: Diagnosis: Dorsalgia, unspecified Presentation: 06/01 18:16 Chief complaint: Patient states: "I have chronic back pain and am here every 2-3 mb9 months. It hurts bad and need some medicine.". Coronavirus screen: Vaccine status: Patient reports receiving the 2nd dose of the covid vaccine. Ebola Screen: No symptoms or risks identified at this time. Initial Sepsis Screen: Does the patient meet any 2 criteria? No. Patient's initial sepsis screen is negative. Does the patient have a suspected source of infection? No. Patient's initial sepsis screen is negative. Risk Assessment: Do you want to hurt yourself or someone else? Patient reports no desire to harm self or others. Onset of symptoms was June 01, 2024. 18:16 Acuity: LEONARD 4 mb9 18:16 Method Of Arrival: Wheelchair mb9 Triage Assessment: 18:18 General: Appears in no apparent distress. Behavior is calm, cooperative. Pain: mb9 Complains of pain in back Pain does not radiate. Pain currently is 10 out of 10 on a pain scale. Quality of pain is described as sharp, shooting, stabbing, Pain began years ago. EENT: No signs and/or symptoms were reported regarding the EENT system. Neuro: Corbett Agitation-Sedation Scale (RASS): 0 - Alert and Calm Level of Consciousness is awake, alert, obeys commands, Oriented to person, place, time, situation, Appropriate for age. Cardiovascular: Patient's skin is warm and dry. Respiratory: Airway is patent Respiratory effort is even, unlabored, Respiratory pattern is regular, symmetrical. GI: No signs and/or symptoms were reported involving the gastrointestinal system. : No signs and/or symptoms were reported regarding the genitourinary system. Derm: Skin is pink, warm \\T\\ dry. Musculoskeletal: Range of motion: intact in all extremities. Historical: - Allergies: 18:17 No Known Allergies; mb9 - Home Meds: 18:17 None [Active]; mb9 - PMHx: 18:17 chronic back pain; colon cancer-in remission; diabetes mellitus; Hypertensive disorder; mb9 - PSHx: 18:17 None; mb9 - Immunization history:: Adult Immunizations up to date. - Infectious Disease History:: Denies. - Social history:: Smoking status: Patient denies any tobacco usage or history of. Screenin:18 [facility] ED Fall Risk Assessment (Adult) History of falling in the last 3 months, mb9 including since admission No falls in past 3 months (0 pts) Confusion or Disorientation No (0 pts) Intoxicated or Sedated No (0 pts) Impaired Gait No (0 pts) Mobility Assist Device Used No (0 pt) Altered Elimination No (0 pt) Score/Fall Risk Level 0 - 2 = Low Risk Oriented to surroundings, Maintained a safe environment, Educated pt \\T\\ family on fall prevention, incl call for assistance when getting out of bed. Abuse screen: Denies threats or abuse. Nutritional screening: No deficits noted. Tuberculosis screening: No symptoms or risk factors identified. Assessment: 18:19 Reassessment: see triage assessment. mb9 19:34 Reassessment: No changes from previously documented assessment. Patient and/or family mb9 updated on plan of care and expected duration. Pain level reassessed. Patient is alert, oriented x 3, equal unlabored respirations, skin warm/dry/pink. Vital Signs: 18:16 Pulse 74; Resp 18; Temp 98.8; Pulse Ox 100% ; Weight 101.6 kg; Height 5 ft. 4 in. ; mb9 Pain 10/10; 18:59 BP 110 / 88; mb9 19:39 BP 107 / 74; Pulse 70; Resp 18; Pulse Ox 100% on R/A; mb9 18:16 Body Mass Index 38.45 (101.60 kg, 162.56 cm) mb9 18:16 Pain Scale: Adult mb9 ED Course: 17:41 Patient arrived in ED. im 18:10 Rosa Meyers RN is Primary Nurse. mb9 18:11 Marek Hansen PA is PHCP. cp 18:11 Marek Veras MD is Attending Physician. cp 18:17 Triage completed. mb9 18:17 Arm band placed on. mb9 18:19 Bed in low position. Call light in reach. Side rails up X 1. Adult w/ patient. Provided mb9 Education on: press call light if needing anything. Client placed on continuous cardiac and pulse oximetry monitoring. NIBP monitoring applied. 19:34 No provider procedures requiring assistance completed. mb9 19:34 Patient did not have IV access during this emergency room visit. mb9 Administered Medications: 18:59 Drug: HYDROmorphone IM 1 mg IM once Route: IM; Site: left deltoid; mb9 19:34 Follow up: Response: No adverse reaction mb9 18:59 Drug: Dexamethasone IM 10 mg IM once Route: IM; Site: right deltoid; mb9 19:34 Follow up: Response: No adverse reaction mb9 Medication: 18:19 VIS not applicable for this client. mb9 Outcome: 19:33 Discharge ordered by . meera 19:34 Discharged to home via wheelchair, with family, mb9 19:34 Condition: stable 19:34 Discharge instructions given to patient, family, Instructed on discharge instructions, follow up and referral plans. Demonstrated understanding of instructions, follow-up care, 19:39 Patient left the ED. mb9 Signatures: Marek Hansen PA PA cp Wilkerson, Mary Beth RN RN mb9 Jenna Richmond im
[2024-06-03 17:49] VITALS: BP 107/74; TEMP 98.8; O2SAT 100
== END 2024-06-01 19:39 | disposition home or self-care (01) ==
LOC: ER 17:39
DX: M54.50 Low back pain, unspecified (principal); G89.29 Other chronic pain; I10 Essential (primary) hypertension; E11.9 Type 2 diabetes mellitus without complications
CPT/HCPCS: 96372; 99284; J1100; J1170

== ENCOUNTER 2024-08-29 19:13 | Emergency (ER) | payer OTHER ==
--- OUTSIDE RECORDS SUMMARY | 2024-08-29 19:19 | XMS REPORT | Continuity of Care Document ---
Author Name Unknown Address [address] [facility] [address] [place] [address] [facility] thconnect Address [address] [facility] [place] [address] Care Team Providers Care District Home Economics Agent Name Role Phone GEORGINA FOSTER Primary Care Physician Unavailab Darius Paul Attending Clinician Unavailable Brittanie Wing Attending Clinician Unavailable GEORGINA FOSTER Attending Clinician Unavailable TANIA RUFF Attending Clinician Unavailable LUC BARRIGA Attending Clinician UnavailLUC Olivo Attending Clinician UnavailLuc Olivo MD Attending Clinician [phone] Attending Clinician Unavailable DAVID KAPLAN Attending Clinician Unavailable ASUNCION BROWN Attending Clinician Unava ilable KARENA PERES Attending Clinician Unavailable MAXDARIUSZ DURÁN Attending Clinician Unavailable CELESTE PADRON Attending Clinician Unavailable LINH JEFFERS Attending Clinician Unavailable 39, HOLTER Attending Clinician Unavailable COLETTE DOUGHERTYANA Attending Clinician Unavailable DARIUS GALLO Attending Clinician Unava ilable HERON HERNANDEZ Attending Clinician Unavailable GUS NERI Attending Clinician [...] Clinician Unavailab YOHAN Dang Attending Clinician Unavailab MADELINE Sin Attending Clinician Un available Raul Elkins DO Attending Clinician [phone] JERROD ANDERSON Attending Clinician Unavailable LATHA AVILA Attending Clinician Unava ilable Rafia Medina Attending Clinician [phone] RAFIA PISANO Attending Clinician Unavailable Doctor Unassigned, [place] Attending Clinician U navailable Errol Callejas Attending Clinician [phone] ERROL SHARP Attending Clinician Unavailable LUC BARRIGA Admitting Clinician UnavailJERROD Gonzalez Admitting Clinician Unavailable Payers Payer Name Policy Type Policy Number Effective Date Expirati on Date Source AETNA VANESSA DUAL COMPLETE CAP(HMO D-SNP OA) 7 [id number] 2023 00:00:00 AETNA MEDICARE OUT OF NETWORK [id number] 2023 00:00:00 HU[employer]NA VANESSA GOLD PLUS 33 D-SNP OA 7 [id number] 2022 00:00:00 HU[employer]NA MEDICARE 53 [id number] 2022 00:00:00 [facility] HUMANA MA 5 [id number] 2022 00:00:00 KIT MCKEE HMO-POS 16 [id number] 2021 00:00:00 [facility] [id number] 2019 00:00:00 Problems Condition Name Condition Details Condition Category Status Onset Date Resolution Date Last Treatment Date Treating Clinician Comments Source Rotator cuff arthropath y, left Rotator cuff arthropath y, left Disease Active 06-10 00:00: 00 Kateryna Rojoold - Externa l Pre-op evaluation Pre-op evaluation Disease Active 12-16 00:00: 00 Kateryna Seybold - Externa l DM type 2 with diabetic mixed hyperlipid emia (multi HCC) DM type 2 with diabetic mixed hyperlipid emia (multi HCC) Disease Active 02-25 00:00: 00 Kateryna Rojoold - Externa l Anxiety Anxiety Disease Active 02-25 00:00: 00 Kateryna Seybold - Externa l Primary insomnia Primary insomnia Disease Active 02-25 00:00: 00 Kateryna Seybold - Externa l Gastroesop hageal reflux disease [...] knee Disease Active 02-25 00:00: 00 Kateryna Rojoold - Externa l History of colectomy History of colectomy Disease Active 11-27 00:00: 00 Kateryna Rojoold - Externa l Chronic bilateral low back pain with bilateral sciatica Chronic bilateral low back pain with bilateral sciatica Disease Active 11-27 00:00: 00 Kateryna Seybold - Externa l Fatty liver Fatty liver Disease Active 11-27 00:00: 00 Kateryna munroe Acute pharyngiti s due to other specified organisms Acute pharyngiti s due to other specified organisms Disease Active 11-14 00:00: 00 Kateryna munroe Radiculopa thy Radiculopa thy Disease Active 2021-11 00:00: 00 Last Assessmen t & Plan: [...] t vs seek second opinion Kateryna munroe Severe obesity Severe obesity Disease Active 11-26 00:00: 00 Kateryna munroe [...] mellitus), type 2 Disease Active Kateryna Gauthier [id number] Other chronic pain Problem [facility] Incomplete emptying of bladder Incomplete emptying of bladder Problem [facility] Disorder of kidney and/or ureter Renal mass, right Problem [facility] [id number] Primary osteoarthr itis of right knee Problem [facility] [id number] Primary osteoarthr itis of left knee Problem [facility] [id number] BPH loc w urin obs/LUTS Problem [facility] [id number] Right-side d low back pain without sciatica, unspecifie d chronicity Problem [facility] Spasm Jerking movements of extremitie s Problem [facility] [id number] CPAP (continuou s positive airway pressure) dependence Problem [facility] [id number] 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 Problem [facility] [id number] Other obstructiv e and reflux uropathy Problem [facility] [id number] Urethritis [facility] [id number] Other stricture of urethral meatus in male Problem [facility] [id number] Body mass index (BMI) 40.0-44.9, adult Problem [facility] Hyperlipid emia Hyperlipid emia Problem [facility] [id number] Depression with anxiety Problem [facility] [id number] Morbid obesity Problem [facility] [id number] Essential hypertensi on Problem [facility] Skin sensation disturbanc e Numbness in both hands Problem [facility] [id number] Uncontroll ed type 2 diabetes mellitus with hyperglyce kurtis Problem [facility] Balanitis xerotica obliterans Balanitis xerotica obliterans Problem [facility] Phimosis Phimosis Problem [facility] [id number] Lower urinary tract symptoms (LUTS) Problem [facility] Acute cystitis Acute cystitis with hematuria Problem [facility] [id number] Hx of colon cancer, stage III Problem [facility] Cancer Cancer Problem [facility] Dizziness Dizziness Problem [facility] [id number] Leg heaviness Problem [facility] Headache Frequent headaches Problem [facility] [id number] Obstructiv e sleep apnea Problem [facility] Gross hematuria Gross hematuria Problem [facility] Congenital cystic kidney disease Kidney cyst Problem [facility] Arthritis of both knees Arthritis of both knees Problem [facility] Allergies, Adverse Reactions, Alerts Allergy Name Allergy Type Status Severity Reaction(s) Onset Date Inactive Date Treating Clinician Comments Source No Known Allergie s DA Active U 2 00:00: 00 [facility] NO KNOWN ALLERGIE S Drug Class Active [facility] Social History Social Habit Start Date Stop Date Quantity Comments Source Sexual orientation U [facility] Gender identity Keisha Gauthier - External Exposure to SARS-CoV-2 (event) Not sure Kateryna duron History of Tobacco Use [facility] History of Social function 2023-07-24 00:00:00 2023-07-24 00:00:00 Kateryna Gauthier - External Sex 2021-10-31 07:49:13 2021-10-31 07:49:13 Male (finding) Kateryna Gauthier - External Sex assigned at 1960 00:00:00 1960 00:00:00 [facility] Smoking Status Start Date Stop Date Source Tobacco smoking consumption unknown [facility] Former Smoker 2024-01-06 00:00:00 2024-01-06 00:00:00 [facility] Never smoked tobacco Kateryna Gauthier - External Medications Ordered Medication Name Filled Medication Name Start Date Stop Date Current Medication? Ordering Clinician Indication Dosage Frequency Signature (SIG) Comments Components Source Aspirin 81 MG oral Tablet Delayed Response 07-30 14:55: 02 Yes 81mg Take 1 tablet (81 mg total) by mouth. Kateryna munroe Ramelteon (Rozerem) 8 MG oral Tablet 07-30 14:55: 02 Yes 8mg QD Take 1 tablet (8 mg total) by mouth nightly. Kateryna munroe oxyCODONE-A cetaminophe n 7.5-325 MG oral Tablet 07-30 14:55: 02 Yes 1{tbl} Q.5D Take 1 tablet by mouth 2 times daily as needed for pain. Kateryna munroe Gabapentin 25 MG oral Tablet 07-30 14:55: 02 Yes 1{tbl} Q.5D Take 1 tablet by mouth 2 times daily. Kateryna munroe morpHINE (4 mg/mL) injection 4 mg 07-08 01:15: 00 07-08 01:07 :00 No 4mg 4 mg, Intravenou s, ONCE, 1 dose, On Fri07/07/24 at 2015, STAT [facility] cyclobenzap rine 5 mg tablet 07-07 00:00: 00 Yes [id number] 5mg Take 1 tablet by mouth 3 (three) times daily as needed for Muscle Spasms for up to 15 doses. [facility] lidocaine 5 % (700 mg/patch) patch 07-07 00:00: 00 Yes [id number] 1{patch } Apply 1 Patch to area(s) daily. [facility] Aripiprazol e 15 MG oral Tablet 06-10 16:19: 56 06-10 00:00 :00 No 15mg QD Take 1 tablet (15 mg total) by mouth daily. Kateryna munroe Tizanidine HCl 4 MG oral Tablet 06-10 16:19: 14 06-10 00:00 :00 No 4mg Take 1 tablet (4 mg total) by mouth at bedtime. Kateryna munroe Aspirin 81 MG oral Tablet Delayed Response 06-10 16:17: 43 Yes 81mg Take 1 tablet (81 mg total) by mouth. Kateryna munroe Ramelteon (Rozerem) 8 MG oral Tablet 06-10 16:17: 43 Yes 8mg QD Take 1 tablet (8 mg total) by mouth nightly. Kateryna munroe oxyCODONE-A cetaminophe n 7.5-325 MG oral Tablet 06-10 16:17: 43 Yes 1{tbl} Q.5D Take 1 tablet by mouth 2 times daily as needed for pain. Kateryna munroe Ketoconazol e 2 % apply externally Cream 06-04 00:00: 00 Yes [id number] APPLY TO RASH IN UNDERARM AREAS TWICE DAILY UNTIL RESOLVED (ABOUT 2 WEEKS) REPEAT NECESSARY. Kateryna munroe Benztropine Mesylate 0.5 MG oral Tablet 05-28 00:00: 00 Yes TAKE 1 TABLET BY MOUTH ONCE DAILY FOR INVOLUNTAR Y MUSCLE MOVEMENTS Kateryna munroe hydrOXYzine HCl 25 MG oral Tablet 05-28 00:00: 00 Yes TAKE 1 TABLET BY MOUTH TWICE DAILY FOR ANXIETY Kateryna munroe Quetiapine Fumarate 100 MG oral Tablet 05-28 00:00: 00 Yes TAKE 1 TABLET BY MOUTH NIGHTLY FOR SLEEP Kateryna munroe Aripiprazol e 20 MG oral Tablet 05-27 00:00: 00 Yes 1{tbl} Take 1 tablet by mouth at bedtime. Kateryna munroe Enalapril Maleate 10 MG oral Tablet 05-24 00:00: 00 Yes [id number] 10mg QD Take 1 tablet (10 mg total) by mouth daily. Kateryna munroe Metoprolol Tartrate (LOPRESSOR) 25 MG oral Tablet 03-22 00:00: 00 Yes [id number] 25mg Q.5D Take 1 tablet (25 mg total) by mouth 2 times daily. Kateryna munroe Atorvastati n Calcium 40 MG oral Tablet 02-17 00:00: 00 Yes [id number] 40mg QD Take 1 tablet (40 mg total) by mouth daily. Kateryna munroe Empaglifloz in (Jardiance) 10 MG oral Tablet 02-17 00:00: 00 Yes [id number] 10mg QD Take 1 tablet (10 mg total) by mouth daily. Kateryna munroe Methylpredn isolone Acetate (Depo-Medro l) 40 mg/ml - Physician Administere d ([id number]) 02-03 14:15: 00 02-03 14:38 :00 No [id number] 9106 40mg Kateryna munroe Aspirin 81 MG [...] daily as needed for pain. Kateryna munroe Desonide 0.05 % apply externally Cream 01-26 00:00: 00 Yes [id number] Apply to rash in underarm areas twice daily until it resolves (about 2 weeks). Repeat as necessary. . Kateryna munroe Ketoconazol e 2 % apply externally Cream 01-26 00:00: 00 Yes [id number] Apply to rash in underarm areas twice daily until it resolves (about 2 weeks). Repeat as necessary. . Kateryna munroe oxyCODONE-A cetaminophe n 7.5-325 MG oral Tablet 01-20 10:21: 35 Yes 1{tbl} Q.5D Take 1 tablet by mouth 2 times daily as needed for pain. Kateryna munroe HYDROcodone -Acetaminop hen 10-325 MG oral Tablet 01-20 10:20: 58 01-20 00:00 :00 No [id number] 1{tbl} QD Take 1 tablet by mouth [...] MG oral Tablet 01-15 00:00: 00 Yes [id number] 3 1000mg Take 1 tablet (1,000 mg total) by mouth in the morning and 1 tablet (1,000 mg total) in the evening. Take with meals. Kateryna munreo Atorvastati n Calcium 40 MG oral Tablet 12-18 00:00: 00 Yes [id number] 40mg Take 1 tablet (40 mg total) [...] in vitro Strip 2022-11 00:00: 00 Yes [id number] Check BS twice daily. Kateryna munroe Empaglifloz in (Jardiance) 10 MG oral Tablet 2022-11 00:00: 00 Yes [id number] 10mg Take 1 tablet (10 mg total) by mouth daily. Kateryna munroe TRUEplus Lancets 33G does not apply Misc 2022-11 00:00: 00 Yes Use as directed. Kateryna munroe Quetiapine Fumarate 50 MG oral Tablet 2022-11 00:00: 00 06-10 00:00 :00 No 50mg QD Take 1 tablet (50 mg total) by mouth nightly. Kateryna munroe Blood Glucose Monitoring Suppl (True Metrix Air Glucose Meter) w/Device does not apply Kit 2022-11 00:00: 00 Yes USE DIRECTED Kateryna munroe Enalapril Maleate 10 MG oral Tablet 2022-11 00:00: 00 Yes [id number] 10mg Take 1 tablet (10 mg total) [...] 08-01 00:00: 00 01-26 00:00 :00 No [id number] 1[drp] Place 1 drop into both eyes 2 times daily. Kateryna munroe Aspirin 81 MG oral Tablet Delayed Response 07-24 08:36: 13 Yes 81mg Take 1 tablet (81 mg total) by mouth. Kateryna munroe Aripiprazol e 15 MG oral Tablet 07-24 08:36: 13 Yes 15mg Take 1 tablet (15 mg total) by mouth daily. Kateryna munroe Ramelteon (Rozerem) 8 MG oral Tablet 07-24 08:36: 13 Yes 8mg Take 1 tablet (8 mg total) by mouth nightly. Kateryna munroe TRUEplus Lancets 33G does not apply [facility] 07-15 00:00: 00 Yes USE DIRECTED Kateryna munroe Aripiprazol e 15 MG oral Tablet 07-01 14:34: 46 Yes 15mg Take 1 tablet (15 mg total) by mouth daily. Kateryna munroe Trazodone HCl 100 MG oral Tablet 07-01 14:32: 18 07-01 00:00 :00 No Trazodone Oral once daily active Kateryna munroe Metformin HCl 1000 MG oral Tablet 07-01 00:00: 00 Yes [id number] 3 1000mg Take 1 tablet (1,000 mg total) by mouth in the morning and 1 tablet (1,000 mg total) in the evening. Take with meals. Kateryna munroe Blood Glucose Monitoring Suppl (True Metrix Air Glucose Meter) w/Device does not apply Kit 06-02 00:00: 00 Yes USE DIRECTED Kateryna munroe Aspirin 81 MG oral Tablet Delayed Response 04-30 15:48: 07 Yes 81mg Take 1 tablet (81 mg total) by mouth Kateryna munroe Eszopiclone 3 MG oral Tablet 04-30 15:48: 07 Yes Eszopiclon e Oral once daily active Kateryna munroe methylPREDN ISolone (Medrol) 4 MG oral Tablet Therapy Pack 04-09 00:00: 00 07-01 00:00 :00 No [id number] Take is instructed on pack Kateryna munroe Ciprofloxac in HCl (Cipro) 500 MG oral Tablet 03-26 00:00: 00 07-01 00:00 :00 No [id number] 500mg Take 1 tablet (500 mg total) by mouth 2 times daily for 7 days Kateryna munroe Naproxen 500 MG Naproxen 500 MG 15 [...] noon, and 2 at night Kateryna munroe Pantoprazol e Sodium 40 MG oral Tablet Delayed Response 03-04 00:00: 00 Yes [id number] TAKE 1 TABLET EVERY DAY Kateryna munroe Blood Glucose Calibration (True Metrix Level 1) Low in vitro Solution 03-04 00:00: 00 Yes Kateryna munroe Blood Glucose Monitoring Suppl (True Metrix Air Glucose Meter) w/Device does not apply Kit 03-04 00:00: 00 Yes USE MONITOR TO CHECK BLOOD SUGAR Kateryna munroe Enalapril Maleate 10 MG oral Tablet 03-04 00:00: 00 Yes [id number] TAKE 1 TABLET EVERY DAY Kateryna munroe Metoprolol Tartrate (LOPRESSOR) 25 MG oral Tablet 03-03 00:00: 00 Yes [id number] 25mg Take 1 tablet (25 mg total) by mouth 2 times daily Kateryna munroe Aspirin 81 MG oral Tablet Delayed Response 01-15 11:26: 27 Yes 1{tbl} Take 1 tablet by mouth Kateryna munroe Albuterol HFA 108 (90 Base) MCG/ACT IN AERS 01-02 00:00: 00 Yes [id number] 2{puff} Q.25D Inhale 2 puffs into the lungs every 6 hours as needed for wheezing Kateryna munroe Aspirin 81 MG oral Tablet Delayed Response 12-19 09:34: 36 Yes 1{tbl} Take 1 tablet by mouth Kateryna munroe Sertraline HCl 50 MG oral Tablet 12-03 00:00: 00 Yes 50mg QD Take 1 tablet (50 mg total) by [...] 150 MG OR TB24 11-27 00:00: 00 06-10 00:00 :00 No [id number] 150mg QD Take 1 tablet (150 mg total) by mouth daily as needed (anxiety) Kateryna munroe Doxepin HCl 50 MG oral Capsule 11-27 00:00: 00 02-03 00:00 :00 No [id number] 50mg Take 1 capsule (50 mg total) by mouth daily Kateryna munroe HYDROcodone -Acetaminop hen (NORCO) 5-325 MG oral Tablet 11-27 00:00: 00 02-25 00:00 :00 No [id number] 1{tbl} QD Take 1 tablet by mouth daily as needed for pain Kateryna munroe Amoxicillin -Pot Clavulanate 875-125 MG oral Tablet 11-14 00:00: 00 Yes [id number] 1{tbl} Take 1 tablet by mouth 2 times daily Kateryna munroe Benzonatate (Tessalon Perles) 100 MG oral Capsule 11-14 00:00: 00 Yes [id number] 100mg Q.[id number] 3D Take 1 capsule (100 mg total) [...] MG oral Tablet 2021-11 00:00: 00 Yes [id number] 10mg Take 1 tablet (10 mg total) by mouth daily Kateryna munroe Pantoprazol e Sodium 40 MG oral Tablet Delayed Response 2021-11 00:00: 00 Yes [id number] 40mg Take 1 tablet (40 mg total) by mouth daily Kateryna munroe Blood Glucose Monitoring Suppl (Blood Glucose Monitor System) w/Device does not apply Kit 0 8-30 00:00: 00 Yes Use monitor to check blood sugar Kateryna munroe [facility] 0 8-30 00:00: 00 No 15mg [facility] Orth[facility] 2021-0 8-30 00:00: 00 No 15mg [facility] 2021-0 8-30 00:00: 00 No 15mg [facility] 2021-0 8-30 00:00: 00 No 15mg [facility] Orth[facility] 2021-0 8-30 00:00: 00 No 15mg [facility] Orth[facility] 2021-0 8-30 00:00: 00 No 15mg [facility] 2021-0 8-30 00:00: 00 No 15mg [facility] 2021-0 8-30 00:00: 00 No 15mg [facility] Orth[facility] 2021-0 8-30 00:00: 00 No 15mg [facility] 2021-0 8-30 00:00: 00 No 15mg [facility] Orth[facility] 2021-0 8-30 00:00: 00 No 15mg [facility] Blood Glucose Monitoring Suppl (Blood Glucose Monitor System) w/Device does not apply Kit 07-09 00:00: 00 11-27 00:00 :00 No Use to check FSBS as needed. Kateryna munroe Glucose Blood in vitro Strip 8 00:00: 00 11-27 00:00 :00 No [id number] 1{each} 1 each by other route daily Use 1 as directed twice daily to check blood glucose. Kateryna munroe GNP Sterile Lancets 33G does not apply Misc 07-09 00:00: 00 11-27 00:00 :00 No 1{each} 1 each by does not apply route 2 to 3 times daily Kateryna munroe Metoprolol Tartrate 25 MG oral Tablet 07-07 00:00: 00 Yes [id number] 25mg Take 1 tablet (25 mg total) by mouth 2 times daily Kateryna munroe Atorvastati n Calcium 40 MG oral Tablet 07-07 00:00: 00 Yes [id number] 40mg Take 1 tablet (40 mg total) by mouth daily Kateryna munroe Metformin HCl 1000 MG oral Tablet 07-07 00:00: 00 07-01 00:00 :00 No [id number] 1000mg Take 1 tablet (1,000 mg total) by mouth in the morning and 1 tablet (1,000 mg total) in the evening. Take with meals. Kateryna munroe Applicators (Q-Tips/Sin gle-Tip) does not apply SWAB 07-04 00:00: 00 11-27 00:00 :00 No Use swab to clean site Kateryna munroe [facility] 07-02 00:00: 00 No 15mg [facility] 0 07-02 00:00: 00 No 15mg [facility] 0 8 00:00: 00 No 15mg [facility] 0 8 00:00: 00 No 15mg [facility] 0 8 00:00: 00 No 15mg [facility] 0 8 00:00: 00 No 15mg [facility] 2021-0 8 00:00: 00 No 15mg [facility] 2022-0 8-23 00:00: 00 No 15mg [facility] Orth[facility] 2-0 8-23 00:00: 00 No 15mg [facility] Ortho[facility]isc 2-0 8-23 00:00: 00 No 15mg [facility] Orth[facility]isc 2-0 8-23 00:00: 00 No 15mg [facility] Orth[facility]isc 2-0 8-17 00:00: 00 No 15mg [facility] Ortho[facility]isc 2-0 8-17 00:00: 00 No 15mg [facility]isc Ortho[facility]isc 2-0 8-17 00:00: 00 No 15mg [facility] Ortho[facility]isc 2-0 8-17 00:00: 00 No 15mg [facility] OrthoVisc 2-0 8-17 00:00: 00 No 15mg [facility] Orth[facility] 2-0 8-17 00:00: 00 No 15mg [facility] Orth[facility]isc 2-0 8-17 00:00: 00 No 15mg [facility] Orth[facility]isc 2-0 8-17 00:00: 00 No 15mg [facility] Orth[facility]isc 2-0 8-17 00:00: 00 No 15mg [facility] Orth[facility]isc 2-0 8-17 00:00: 00 No 15mg [facility]isc Ortho[facility]isc 2-0 8-17 00:00: 00 No 15mg [facility] Duloxetine HCl [address] Particles 0 04-11 00:00: 00 Yes 120mg Take 120 mg by mouth daily Kateryna munroe Eszopiclone 2 MG oral Tablet 0 04-11 00:00: 00 02-25 00:00 :00 No TAKE 1 TABLET BY MOUTH ONCE DAILY IMMEDIATEL Y BEFORE BEDTIME NEEDED Kateryna oliverio munroe Flomax 0.4 MG Flomax 0.4 MG - 00:00: 00 06-29 00:00 :00 No 1{capsu le} QD Flomax 0.4 MG Bupivicaine [place] Bupivicaine [place] 02-26 00:00: 00 No 2.5mg [facility] Kenalog (Triamcinol one) Kenalog (Triamcinol one) 02-26 00:00: 00 No 40mg [facility] Bupivicaine [place] Bupivicaine [place] 02-26 00:00: 00 No 2.5mg [facility] Kenalog (Triamcinol one) Kenalog (Triamcinol one) 02-26 00:00: 00 No 40mg [facility] Bupivicaine [place] Bupivicaine [place] 0 02-26 00:00: 00 No 2.5mg [facility] Kenalog (Triamcinol one) Kenalog (Triamcinol one) 02-26 00:00: 00 No 40mg [facility] Bupivicaine [place] Bupivicaine [place] 0 02-26 00:00: 00 No 2.5mg [facility] Kenalog (Triamcinol one) Kenalog (Triamcinol one) 02-26 00:00: 00 No 40mg [facility] Bupivicaine [place] Bupivicaine [place] 0 02-26 00:00: 00 No 2.5mg [facility] Kenalog (Triamcinol one) Kenalog (Triamcinol one) 0 02-26 00:00: 00 No 40mg [facility] Bupivicaine [place] Bupivicaine [place] 0 02-26 00:00: 00 No 2.5mg [facility] Kenalog (Triamcinol one) Kenalog (Triamcinol one) 0 02-26 00:00: 00 No 40mg [facility] Bupivicaine [place] Bupivicaine [place] 0 02-26 00:00: 00 No 2.5mg [facility] Kenalog (Triamcinol one) Kenalog (Triamcinol one) 0 02-26 00:00: 00 No 40mg [facility] Bupivicaine [place] Bupivicaine [place] 0 02-26 00:00: 00 No 2.5mg [facility] Kenalog (Triamcinol one) Kenalog (Triamcinol one) 0 02-26 00:00: 00 No 40mg [facility] Bupivicaine [place] Bupivicaine [place] 0 02-26 00:00: 00 No 2.5mg [facility] Kenalog (Triamcinol one) Kenalog (Triamcinol one) 0 02-26 00:00: 00 No 40mg [facility] Bupivicaine [place] Bupivicaine [place] 0 02-26 00:00: 00 No [facility]5mg [facility] [facility] Kenalog (Triamcinol one) Kenalog (Triamcinol one) 0 02-26 00:00: 00 No 40mg [facility] Bupivicaine [place] Bupivicaine [place] 0 02-26 00:00: 00 No 2.5mg [facility] Kenalog (Triamcinol one) Kenalog (Triamcinol one) 0 02-26 00:00: 00 No 40mg [facility] Alprazolam 0.5 MG oral Tablet 0 - 00:00: 00 01-26 00:00 :00 No .5mg [...] oin Monohyd Macro 100 MG oral Capsule 1-20 00:00: 00 11-27 00:00 :00 No [id number] 100mg Take 1 capsule (100 mg total) [...] MCG/ACT IN AERS 11-26 00:00: 00 Yes [id number] 2{puff} Q.25D Inhale 2 puffs into the lungs every 6 hours as needed for wheezing Kateryna munroe Lidocaine Pain Relief 4 % apply externally Patch 1-05 00:00: 00 Yes Kateryna munroe Metoprolol Tartrate [...] DAILY NEEDED FOR 15 DAYS Kateryna Gauthier - Externa l Simvastatin 40 MG oral Tablet 3-02 00:00: 00 Yes every 24 hours Kateryna Gauthier methocarbam oL (ROBAXIN-75 0) 750 mg tablet 1-03 00:00: 00 Yes [id number] 750mg Take 1 tablet by mouth 4 (four) times daily as needed for Pain (scale 7-10). [facility] methylPREDN ISolone (MEDROL, FEDERICO,) 4 mg tablets 06-28 00:00: 00 Yes [id number] Take by mouth SEE-INSTRU CTIONS. follow package directions [facility] naproxen 500 mg EC tablet 06-28 00:00: 00 Yes [id number] 500mg Take 1 tablet by mouth 2 (two) times daily with meals. [facility] methocarbam oL (ROBAXIN) 500 mg tablet 06-28 00:00: 00 Yes [id number] 500mg Take 1 tablet by mouth 3 (three) times daily as needed for Pain (scale 7-10). [facility] naproxen (NAPROSYN) 500 mg tablet 06-15 00:00: 00 Yes 500mg Take 1 tablet by mouth 2 (two) times daily with meals. [facility] methylPREDN ISolone (MEDROL, FEDERICO,) 4 mg tablets 8 00:00: 00 Yes Take by mouth SEE-INSTRU CTIONS. follow package directions [facility] ciprofloxac in HCl 500 mg tablet 06-01 00:00: 00 Yes 500mg Take 1 tablet by mouth 2 (two) times daily. [facility] traZODone HCl 50 MG traZODone HCl 50 [...] Vaccine Moderna COVID-19 Vaccine 2021-03-09 11:49:00 Completed [facility] Covid-19 Vaccine Moderna (Spikevax), Mrna-lnp, Tito Protein, [...] Vaccine Moderna COVID-19 Vaccine 2021-02-07 11:48:00 Completed [facility] Covid-19 Vaccine Moderna (Spikevax), Mrna-lnp, Tito Protein, [...] Pf, 100 Mcg/0.5ml,IM 2021-02-07 00:00:00 Completed Kateryna Jenkinsybold Covid-19 Vaccine Moderna (Spikevax), Mrna-lnp, Tito Protein, Pf 2021-02-07 00:00:00 Completed Kateryna Jenkinsybold - External Covid-19 Vaccine Moderna (Spikevax), Mrna-lnp, Tito Protein, Pf 2021-02-07 00:00:00 Completed Kateryna Jenkinsybold - External Covid-19 Vaccine Moderna (Spikevax), Mrna-lnp, Tito Protein, Pf 2021-02-07 00:00:00 Completed Kateryna Jenkinsybold - External Covid-19 Vaccine Moderna (Spikevax), Mrna-lnp, Tito Protein, Pf 2021-02-07 00:00:00 Completed Kateryna Seybold - External Covid-19 Vaccine Moderna (Spikevax), Mrna-lnp, Tito Protein, Pf 2021-02-07 00:00:00 Completed Kateryna Seybold - External Covid-19 Vaccine Moderna (Spikevax), Mrna-lnp, Tito Protein, Pf 2021-02-07 00:00:00 Completed Kateryna Jenkinsybold - External Afluria Afluria 2021-01-08 11:48:00 Completed [facility] Influenza, Seasonal, Injectable, Preservative Free 2021-01-08 00:00:00 [...] 2021-01-08 00:00:00 Completed Kateryna Seybold - External Covid-19 Vaccine Moderna (Spikevax), Mrna-lnp, Tito Protein, Pf Unknown Completed Kateryna Seybold - External Influenza, Seasonal, Injectable, Preservative Free Unknown Completed Kateryna Sey bold - External Influenza Virus Vaccine, Quad, Egg Free Unknown Completed Kateryna Seybold - External Influenza Virus Vaccine, Unspecified Formulation Unknown Completed Kateryna Seybold - External Covid-19 Vaccine Moderna (Spikevax), Mrna-lnp, Tito Protein, Pf Unknown Completed Kateryna Seybold - External AFLURIA TRIVALENT PF(0.5mL) Unknown Completed Kateryna Seybold - External Influenza Virus Vaccine, Quad, Egg Free Unknown Completed Kateryna Seybold - External Influenza Virus Vaccine, Unspecified Formulation Unknown Completed Kateryna Seybold - External Covid-19 Vaccine Moderna (Spikevax), Mrna-lnp, Tito Protein, Pf Unknown Completed Kateryna Seybold - External Influenza, Seasonal, Injectable, Preservative Free Unknown Completed Kateryna Sey bold - External Influenza Virus Vaccine, Quad, Egg Free Unknown Completed Kateryna Seybold - External Influenza Virus Vaccine, Unspecified Formulation Unknown Completed Kateryna Seybold - External Covid-19 Vaccine Moderna (Spikevax), Mrna-lnp, Tito Protein, Pf Unknown Completed Kateryna Seybold - External Influenza, Seasonal, Injectable, Preservative Free Unknown Completed Kateryna Sey bold - External Influenza Virus Vaccine, Quad, Egg Free Unknown Completed Kateryna Seybold - External Influenza Virus Vaccine, Unspecified Formulation Unknown Completed Kateryna Seybold - External Covid-19 Vaccine Moderna (Spikevax), Mrna-lnp, Tito Protein, Pf Unknown Completed Kateryna Seybold - External Influenza, Seasonal, Injectable, Preservative Free Unknown Completed Kateryna Sey bold - External Influenza Virus Vaccine, Quad, Egg Free Unknown Completed Kateryna Seybold - External Influenza Virus Vaccine, Unspecified Formulation Unknown Completed Kateryna Seybold - External Covid-19 Vaccine Moderna (Spikevax), Mrna-lnp, Tito Protein, Pf Unknown Completed Kateryna Seybold - External Influenza, Seasonal, Injectable, Preservative Free Unknown Completed Kateryna Sey bold - External Influenza Virus Vaccine, Quad, Egg Free Unknown Completed Kateryna Seybold - External Influenza Virus Vaccine, Unspecified Formulation Unknown Completed Kateryna Seybold - External Covid-19 Vaccine Moderna (Spikevax), Mrna-lnp, Tito Protein, Pf Unknown Completed Kateryna Seybold - External Influenza, Seasonal, Injectable, Preservative Free Unknown Completed Kateryna Sey bold - External Influenza Virus Vaccine, Quad, Egg Free Unknown Completed Kateryna Seybold - External Influenza Virus Vaccine, Unspecified Formulation Unknown Completed Kateryna Seybold - External Moderna COVID-19 Vaccine Moderna COVID-19 Vaccine Unknown Completed [facility] Afluria Afluria Unknown Completed [facility] Moderna COVID-19 Vaccine Moderna COVID-19 Vaccine Unknown Completed [facility] Afluria Afluria Unknown Completed [facility] Moderna COVID-19 Vaccine Moderna COVID-19 Vaccine Unknown Completed [facility] Afluria Afluria Unknown Completed [facility] - [facility] Moderna COVID-19 Vaccine Moderna COVID-19 Vaccine Unknown Completed [facility] Afluria Afluria Unknown Completed [facility] - [facility] Moderna COVID-19 Vaccine Moderna COVID-19 Vaccine Unknown Completed [facility] Afluria Afluria Unknown Completed [facility] - [facility] Moderna COVID-19 Vaccine Moderna COVID-19 Vaccine Unknown Com[facility] Afluria Afluria Unknown Completed [facility] - [facility] Moderna COVID-19 Vaccine Moderna COVID-19 Vaccine Unknown Completed [facility] Afluria Afluria Unknown Completed [facility] - [facility] Moderna COVID-19 Vaccine Moderna COVID-19 Vaccine Unknown Completed [facility] Afluria Afluria Unknown Completed [facility] - [facility] Moderna COVID-19 Vaccine Moderna COVID-19 Vaccine Unknown Completed [facility] Afluria Afluria Unknown Completed [facility] - [facility] Moderna COVID-19 Vaccine Moderna COVID-19 Vaccine Unknown Completed [facility] Afluria Afluria Unknown Completed [facility] - [facility] Vital Signs Vital Name Observation Time Observation Value Comments S ource Systolic blood pressure 2024-07-30 19:50:00 116 mm[Hg] Kateryna Hdez ld - External Diastolic blood pressure 2024-07-30 19:50:00 78 mm[Hg] Kateryna Hdez ld - External Heart rate 2024-07-30 19:50:00 71 /min Allison Gauthier - External Body temperature 2024-07-30 19:50:00 36.61 Leslie Kateryna Gauthier - External Respiratory rate 2024-07-30 19:50:00 16 /min Kateryna Gauthier - External Body height 2024-07-30 19:50:00 162.6 cm Keisha Gauthier - External Body weight 2024-07-30 19:50:00 98.884 kg Keisha ey Seybold - External BMI 2024-07-30 19:50:00 37.42 kg/m2 Keisha ey Seybold - External Oxygen saturation in Arterial blood by Pulse oximetry 2024-07-30 19:50:00 96 /min Kateryna Rojoo ld - External Systolic blood pressure 2024-07-08 01:07:00 129 mm[Hg] [facility] Diastolic blood pressure 2024-07-08 01:07:00 74 mm[Hg] [facility] Heart rate 2024-07-08 01:07:00 73 /min [facility] Body temperature 2024-07-08 01:07:00 37.39 Leslie [facility] Respiratory rate 2024-07-08 01:07:00 15 /min [facility] Oxygen saturation in Arterial blood by Pulse oximetry 2024-07-08 01:07:00 98 /min [facility] Body height 2024-07-07 22:36:00 162.6 cm [facility] Body weight 2024-07-07 22:36:00 102.513 kg [facility] BMI 2024-07-07 22:36:00 38.79 kg/m2 [facility] Systolic blood pressure 2024-06-10 21:13:00 110 mm[Hg] Kateryna Jenkinsybo ld - External Diastolic blood pressure 2024-06-10 21:13:00 70 mm[Hg] Kateryna Jenkinsybo ld - External Heart rate 2024-06-10 21:13:00 76 /min Kelse y Seybold - External Body temperature 2024-06-10 21:13:00 36.67 Leslie Kateryna Seybold - External Respiratory rate 2024-06-10 21:13:00 18 /min Kateryna Seybold - External Body height 2024-06-10 21:13:00 162.6 cm Keisha ey Seybold - External Body weight 2024-06-10 21:13:00 103.42 kg Keisha ey Seybold - External BMI 2024-06-10 21:13:00 39.14 kg/m2 Keisha ey Seybold - External Oxygen saturation in Arterial blood by Pulse oximetry 2024-06-10 21:13:00 96 /min Kateryna Rojoo ld - External Body weight 2024-02-04 13:44:00 103.42 kg Keisha cai Seybold - External BMI 2024-02-04 13:44:00 39.14 kg/m2 Keisha cai Seybold - External Systolic blood pressure 2024-01-21 14:55:00 118 mm[Hg] Kateryna Jenkinsybo ld - External Diastolic blood pressure 2024-01-21 14:55:00 74 mm[Hg] Kateryna Rojoo ld - External Heart rate 2024-01-21 14:55:00 59 /min Allison y ybold - External Body temperature 2024-01-21 14:55:00 36.5 Leslie Kateryna Jenkinsybold - External Respiratory rate 2024-01-21 14:55:00 15 /min Kateryna Rojoold - External Body height 2024-01-21 14:55:00 162.6 cm Keisha cai Seybold - External Body weight 2024-01-21 14:55:00 102.967 kg Keisha cai Seybold - External BMI 2024-01-21 14:55:00 38.96 kg/m2 Keisha cai Seybold - External Oxygen saturation in Arterial blood by Pulse oximetry 2024-01-21 14:55:00 100 /min Kateryna Hdez ld - External height 2024-01-06 09:45:00 64.00 [in_i] Com [facility] weight 2024-01-06 09:45:00 220 [lb_av] [facility] temperature 2024-01-06 09:45:00 97.7 [degF] Com [facility] bmi 2024-01-06 09:45:00 37.76 kg/m2 [facility] blood pressure systolic 2024-01-06 09:45:00 120 mm[Hg] [facility] blood pressure diastolic 2024-01-06 09:45:00 82 mm[Hg] [facility] Systolic blood pressure 2023-10-07 20:20:00 120 [...] External Heart rate 2023-07-24 13:36:00 57 /min Drese y Seybold - External Body temperature 2023-07-24 [...] blood pressure 2023-07-01 19:18:00 68 mm[Hg] Kateryna Seybo ld - External Heart rate 2023-07-01 19:18:00 [...] height 2023-05-20 13:30:00 64.00 [in_i] Com [facility] weight 2023-05-20 13:30:00 220 [lb_av] [facility] temperature 2023-05-20 13:30:00 98.9 [degF] Com [facility] bmi 2023-05-20 13:30:00 37.76 kg/m2 [facility] blood pressure systolic 2023-05-20 13:30:00 116 mm[Hg] [facility] blood pressure diastolic 2023-05-20 13:30:00 74 mm[Hg] [facility] Body height 2023-03-07 16:34:00 162.6 cm Keisha ey Seybold - External Body weight 2023-03-07 16:34:00 101.606 kg Keisha ey Seybold - External BMI 2023-03-07 16:34:00 38.45 kg/m2 Keisha ey Seybold - External Systolic blood pressure 2023-02-25 18:28:00 113 mm[Hg] Kateryna ybo ld - External Diastolic blood pressure 2023-02-25 18:28:00 77 mm[Hg] Kateryna Jenkinsybo ld - External Heart rate 2023-02-25 18:28:00 [...] Pulse oximetry 2023-02-25 18:28:00 98 /min Kateryna Jenkinsybo ld - External Body height 2023-01-15 17:25:00 [...] blood pressure 2022-11-27 19:13:00 122 mm[Hg] Kateryna Jenkinsybo ld - External Diastolic blood pressure 2022-11-27 19:13:00 83 mm[Hg] Kateryna Jenkinsybo ld - External Heart rate 2022-11-27 19:13:00 64 /min Drese y Seybold - External Body temperature 2022-11-27 [...] blood pressure 2021-11-26 16:51:00 76 mm[Hg] Kateryna horn Heart rate 2021-11-26 16:51:00 80 /min Allison Gauthier Body temperature 2021-11-26 16:51:00 35.78 Leslie Kateryna Gauthier Respiratory rate 2021-11-26 16:51:00 16 /min Kateryna Gauthier Body height 2021-11-26 16:51:00 162.6 cm Keisha Gauthier Body weight 2021-11-26 16:51:00 115.667 kg Keisha Gauthier BMI 2021-11-26 16:51:00 43.77 kg/m2 Keisha Gauthier Procedures Procedure Date / Time Performed Performing Clinicia n Source XR LUMBAR SPINE 3 VW 2024-07-07 23:17:40 Lucius Barriga am A [facility] PELVIS 2022-12-19 16:47:51 Gus Neri S eybold - External Encounters Start Date/Time End Date/Time Encounter Type Admission Type Attending [facility] Care Department Encounter ID Source 2024-02-09 07:38:00 Outpatient Darius Gallo [facility] [id number] [facility] 2023-12-19 10:16:00 Out[facility] [id number] [facility] 2023-03-24 15:49:01 Outpatient D[facility] [id number] [facility] 2023-03-11 09:16:01 Outpatient D[facility] [id number] [facility] 2022-08-15 09:14:03 Outpatient Darius Gallo [facility] [id number] [facility] 2022-06-18 08:34:02 Outpatient Darius Gallo [facility] [id number] [facility] 2022-03-12 16:48:01 Outpatient Wing, Avnee [facility] [id number] [facility] 2022-02-27 09:15:02 Outpatient Wing, Avnee [facility] [id number] [facility] 2022-02-26 13:41:03 Outpatient Wing, Avnee [facility] [id number] [facility] 2022-02-12 14:26:01 Outpatient Wing, Avnee [facility] [id number] [facility] 2022-02-08 14:54:01 Outpatient Wing, Avnee [facility] [id number] [facility] 2022-01-30 07:54:01 Outpatient Wing, Avnee [facility] [id number] [facility] 2022-01-28 10:38:01 Outpatient Wing, Avnee [facility] [id number] [facility] 2022-01-21 15:25:01 Outpatient Wing, Avnee [facility] [id number] [facility] 2022-01-15 09:32:04 Outpatient Wing, Avnee [facility] [id number] [facility] 2022-01-14 10:53:02 Outpatient Wing, Avnee [facility] [id number] [facility] 2022-01-11 15:37:01 Outpatient Wing, Avnee [facility] [id number] [facility] 2021-12-05 14:28:58 Outpatient Wing, Avnee [facility] [id number] [facility] 2021-12-05 14:24:55 Outpatient Wing, Avnee [facility] [id number] [facility] 2021-12-05 14:21:24 Outpatient Brittanie Wing [facility] [id number] [facility] 2024-09-10 16:15:00 2024-09-10 16:15:00 Outpatient GEORGINA FOSTER KATERYNA KATERYNA [id number] [facility] 2024-08-26 00:00:00 2024-08-26 00:00:00 Outpatient KATERYNA MITCHELL [id number] [facility] 2024-08-18 00:00:00 2024-08-18 00:00:00 Outpatient GEORGINA FOSTER KATERYNA MITCHELL [id number] [facility] 2024-08-13 00:00:00 2024-08-13 00:00:00 Outpatient JT RUFFMOSES MITCHELL [id number] [facility] 2024-08-13 00:00:00 2024-08-13 00:00:00 Outpatient GEORGINA FOSTER KATERYNA MITCHELL [id number] [facility] 2024-07-30 15:00:00 2024-07-30 15:00:00 Outpatient TANIA RUFF KATERYNA MITCHELL [id number] [facility] 2024-07-29 00:00:00 2024-07-29 00:00:00 Outpatient KATERYNA MITCHELL [id number] [facility] 2024-07-29 00:00:00 2024-07-29 00:00:00 Outpatient TANIA RUFF KATERYNA MITCHELL [id number] [facility] 2024-07-07 17:43:00 2024-07-07 20:32:00 Emergency X LUC BARRIGA [facility] [id number] [facility] 2024-07-07 17:43:00 2024-07-07 20:32:00 Emergency Luc Barriga AT [facility] [id number] [facility] 2024-07-03 00:00:00 2024-07-03 00:00:00 Outpatient KATERYNA MITCHELL [id number] [facility] 2024-06-14 00:00:00 2024-06-14 00:00:00 Outpatient GEORGINA FOSTER KATERYNA KATERYNA [id number] [facility] 2024-06-10 16:40:00 2024-06-10 16:40:00 Outpatient LAB90 KATERYNA MITCHELL [id number] [facility] 2024-06-10 16:15:00 2024-06-10 16:15:00 Outpatient GEORGINA FOSTER KATERYNA MITCHELL [id number] [facility] 2024-06-04 00:00:00 2024-06-04 00:00:00 Outpatient DAVID KAPLAN KATERYNA MITCHELL [id number] [facility] 2024-06-02 00:00:00 2024-06-02 00:00:00 Outpatient KATERYNA MITCHELL [id number] [facility] 2024-05-24 00:00:00 2024-05-24 00:00:00 Outpatient GEORGINA FOSTER KATERYNA MITCHELL [id number] [facility] 2024-05-05 00:00:00 2024-05-05 00:00:00 Outpatient KATERYNA MITCHELL [id number] [facility] ybdayanna 2024-04-30 11:00:00 2024-04-30 11:00:00 Outpatient GEORGINA FOSTER KATERYNA MITCHELL [id number] [facility] 2024-04-22 09:30:00 2024-04-22 09:30:00 Outpatient GEORGINA FOSTER KATERYNA MITCHELL [id number] [facility] Seybday[facility] 2024-04-06 00:00:00 2024-04-06 00:00:00 Outpatient KATERYNA MITCHELL [id number] [facility] 2024-03-24 08:30:00 2024-03-24 08:30:00 Outpatient STEPHANIE ASUNCION KATERYNA MITCHELL [id number] [facility] 2024-03-21 00:00:00 2024-03-21 00:00:00 Outpatient GEORGINA FOSTER KATERYNA [id number] [facility] Seybold 2024-03-19 00:00:00 2024-03-19 00:00:00 Outpatient KARENA PERES KATERYNA MITCHELL [id number] [facility] Seybold 2024-03-12 00:00:00 2024-03-12 00:00:00 Outpatient DAVID KAPLAN KATERYNA MITCHELL [id number] [facility] Seybold 2024-03-10 00:00:00 2024-03-10 00:00:00 Outpatient KATERYNA MITCHELL [id number] [facility] Seybold 2024-03-09 08:15:00 2024-03-09 08:15:00 Outpatient KATERYNA MITCHELL [id number] [facility] Seybold 2024-03-09 00:00:00 2024-03-09 00:00:00 Outpatient KATERYNA MITCHELL [id number] [facility] Seybold 2024-02-20 00:00:00 2024-02-20 00:00:00 Outpatient KARENA PERES KATERYNA MITCHELL [id number] [facility] Seybold 2024-02-18 00:00:00 2024-02-18 00:00:00 Outpatient GEORGINA FOSTER KATERYNA MITCHELL [id number] [facility] Seybold 2024-02-17 00:00:00 2024-02-17 00:00:00 Outpatient KATERYNA MITCHELL [id number] [facility] Seybold 2024-02-17 00:00:00 2024-02-17 00:00:00 Outpatient GEORGINA FOSTER KATERYNA MITCHELL [id number] [facility] Seybold 2024-02-17 00:00:00 2024-02-17 00:00:00 Outpatient GEORGINA FOSTER KATERYNA MITCHELL [id number] [facility] Seybold 2024-02-04 08:20:00 2024-02-04 08:20:00 Outpatient KATERNYA MITCHELL [id number] [facility] Seybold 2024-02-04 08:00:00 2024-02-04 08:00:00 Outpatient KARENA PERES KATERYNA MITCHELL [id number] [facility] Seybold 2024-02-04 00:00:00 2024-02-04 00:00:00 Outpatient KARENA PERES KATERYNA MITCHELL [id number] [facility] 2024-02-04 00:00:00 2024-02-04 00:00:00 Outpatient KATERYNA MITCHELL [id number] [facility] 2024-02-02 00:00:00 2024-02-02 00:00:00 Outpatient PREZAGEORGINA Birch KATERYNA MITCHELL [id number] [facility] 2024-02-02 00:00:00 2024-02-02 00:00:00 Outpatient PREZASGEORGINA KATERYNA MITCHELL [id number] [facility] 2024-01-27 08:45:00 2024-01-27 08:45:00 Outpatient DAVID KAPLAN KATERYNA MITCHELL [id number] [facility] 2024-01-22 00:00:00 2024-01-22 00:00:00 Outpatient KATERYNA MITCHELL [id number] [facility] 2024-01-22 00:00:00 2024-01-22 00:00:00 Outpatient PREZASGEORGINA KATERYNA MITCHELL [id number] [facility] 2024-01-21 10:00:00 2024-01-21 10:00:00 Outpatient PREZASGEORGINA KATERYNA MITCHELL [id number] [facility] 2024-01-19 08:40:00 2024-01-19 08:40:00 Outpatient LAB90 KATERYNA MITCHELL [id number] [facility] 2024-01-16 00:00:00 2024-01-16 00:00:00 Outpatient PREZASGEORGINA KATERYNA MITCHELL [id number] [facility] 2024-01-14 16:00:00 2024-01-14 16:00:00 Outpatient DARIUSZ SANTANA KATERYNA MITCHELL [id number] [facility] 2024-01-13 00:00:00 2024-01-13 00:00:00 Outpatient KATERYNA MITCHELL [id number] [facility] 2024-01-06 00:00:00 2024-01-06 00:00:00 (F/U) [facility] [id number] [facility] 2023-12-30 10:00:00 2023-12-30 10:00:00 Outpatient CELESTE PADRON KATERYNA MITCHELL [id number] [facility] 2023-12-17 00:00:00 2023-12-17 00:00:00 Outpatient KATERYNA MITCHELL [id number] [facility] 2023-12-17 00:00:00 2023-12-17 00:00:00 Outpatient GEORGINA FOSTER KATERYNA MITCHELL [id number] [facility] 2023-12-16 11:15:00 2023-12-16 11:15:00 Outpatient LINH JEFFERS KATERYNA MITCHELL [id number] [facility] 2023-12-16 10:15:00 2023-12-16 10:15:00 Outpatient 39, HOLTER KATERYNA MITCHELL [id number] [facility] 2023-12-08 10:20:00 2023-12-08 10:20:00 Outpatient WENDY DOUGHERTYSHANA KATERYNA MITCHELL [id number] [facility] 2023-12-05 11:30:00 2023-12-05 11:30:00 Outpatient LINH JEFFERS KATERYNA MITCHELL [id number] [facility] 2023-11-21 00:00:00 2023-11-21 00:00:00 Outpatient GEORGINA FOSTER KATERYNA MITCHELL [id number] [facility] 2023-11-14 12:59:12 2023-11-14 12:59:12 Outpatient [facility] [id number] Dave Shell Shamar 2023-11-05 11:00:00 2023-11-05 11:00:00 Outpatient KATERYNA MITCHELL [id number] [facility] 2023-11-05 10:00:00 2023-11-05 10:00:00 Outpatient KATERYNA MITCHELL [id number] [facility] 2023-11-05 09:30:00 2023-11-05 09:30:00 Outpatient KATERYNA MITCHELL [id number] [facility] 2023-11-05 08:30:00 2023-11-05 08:30:00 Outpatient KATERYNA MITCHELL [id number] [facility] Seybold 2023-11-05 00:00:00 2023-11-05 00:00:00 Outpatient LINH JEFFERS KATERYNA MITCHELL [id number] Kateryna Seybold 2023-10-31 00:00:00 2023-10-31 00:00:00 Outpatient DARIUS GALLO [id number] Kateryna Seybold 2023-10-30 00:00:00 2023-10-30 00:00:00 Outpatient DARIUS GALLO [id number] Kateryna Seybold 2023-10-15 14:30:00 2023-10-15 14:30:00 Outpatient MARYHERON KATERYNA MITCHELL [id number] Kateryna Seybold 2023-10-08 00:00:00 2023-10-08 00:00:00 Outpatient GEORGINA FOSTER [id number] Kateryna Seybold 2023-10-07 15:15:00 2023-10-07 15:15:00 Outpatient KB KATERYNA MITCHELL [id number] Kateryna Seybold 2023-10-07 14:45:00 2023-10-07 14:45:00 Outpatient CRISTIANGEORGINA KATERYNA MITCHELL [id number] Kateryna Seybold 2023-10-07 00:00:00 2023-10-07 00:00:00 (TEL) [facility] [id number] 2023-09-26 00:00:00 2023-09-26 00:00:00 Outpatient DARIUS GALLO [id number] Kateryna Seybold 2023-09-24 10:15:00 2023-09-24 10:15:00 Outpatient GEORGINA FOSTER [id number] Kateryna Seybold 2023-09-04 00:00:00 2023-09-04 00:00:00 Outpatient DARIUS GALLO [id number] Kateryna Seybold 2023-09-03 09:45:2023-09-03 09:45:00 Outpatient LINH JEFFERS KATERYNA MITCHELL [id number] Kateryna Seybold 2023-08-28 00:00:00 2023-08-28 00:00:00 (TEL) [facility] [id number] [facility] 2023-08-25 00:00:00 2023-08-25 00:00:00 Outpatient GUS NERI KATERYNA MITCHELL [id number] Kateryna Seybold 2023-08-25 00:00:00 2023-08-25 00:00:00 Outpatient SABINO DARIUS KATERYNA MITCHELL [id number] Kateryna Seybold 2023-08-19 10:30:00 2023-08-19 10:30:00 Outpatient KATERYNA MITCHELL [id number] Kateryna Seybold 2023-08-19 09:30:00 2023-08-19 09:30:00 Outpatient KATERYNA MITCHELL [id number] Kateryna Seybold 2023-08-19 09:00:00 2023-08-19 09:00:00 Outpatient KATERYNA MITCHELL [id number] Kateryna Seybold 2023-08-19 08:00:00 2023-08-19 08:00:00 Outpatient KATERYNA MITCHELL [id number] Kateryna Seybold 2023-08-07 11:00:00 2023-08-07 11:00:00 Outpatient LINH JEFFERS KATERYNA MITCHELL [id number] Kateryna Seybold 2023-08-01 15:00:00 2023-08-01 15:00:00 Outpatient ARABELLA JUNE [id number] Kateryna Seybold 2023-08-01 15:00:00 2023-08-01 15:00:00 Outpatient ARABELLA JUNE [id number] Kateryna Seybold 2023-08-01 12:30:00 2023-08-01 12:30:00 Outpatient KATERYNA MITCHELL [id number] Kateryna Seybold 2023-07-30 00:00:00 2023-07-30 00:00:00 Outpatient GEORGINA FOSTER [id number] Kateryna Seybold 2023-07-24 15:00:00 2023-07-24 15:00:00 Outpatient ABHAY ASTORGA KATERYNA MITCHELL [id number] [facility] 2023-07-24 09:45:00 2023-07-24 09:45:00 Outpatient LAB45 KATERYNA MITCHELL [id number] [facility] 2023-07-24 08:30:00 2023-07-24 08:30:00 Outpatient DARIUSZ SANTANA KATERYNA MITCHELL [id number] [facility] 2023-07-23 11:23:53 2023-07-23 11:23:53 Outpatient SFA SFA [id number] Dave Ibanez 2023-07-17 00:00:00 2023-07-17 00:00:00 Outpatient DARIUS GALLO [id number] [facility] 2023-07-12 00:00:00 2023-07-12 00:00:00 Outpatient DARIUS GALLO [id number] [facility] 2023-07-10 13:15:00 2023-07-10 13:15:00 Outpatient LINH JEFFERS KATERYNA MITCHELL [id number] Kateryna Seybold 2023-07-10 13:00:00 2023-07-10 13:00:00 Outpatient YOEL Peña KATERYNA MITCHELL [id number] [facility] 2023-07-09 11:37:42 2023-07-09 11:37:42 Outpatient SFA SFA [id number] Dave Ibanez 2023-07-03 00:00:00 2023-07-03 00:00:00 Outpatient GEORGINA FOSTER [id number] Kateryna Seybold 2023-07-03 00:00:00 2023-07-03 00:00:00 Outpatient MD KATERYNA RASHID [id number] Kateryna Seybold 2023-07-02 00:00:00 2023-07-02 00:00:00 Outpatient GEORGINA FOSTER [id number] Kateryna Seybold 2023-07-01 14:45:00 2023-07-01 14:45:00 Outpatient LAB90 KATERYNA MITCHELL [id number] Kateryna Gauthier 2023-07-01 14:15:00 2023-07-01 14:15:00 Outpatient GEORGINA FOSTER KATERYNA [id number] Kateryna Gauthier 2023-07-01 00:00:00 2023-07-01 00:00:00 Outpatient DARIUS GALLO KATERYNA MITCHELL [id number] Kateryna Gauthier 2023-06-27 13:45:00 2023-06-27 13:45:00 Outpatient GEORGINA FOSTER KATERYNA KATERYNA [id number] Kateryna Gauthier 2023-06-26 09:07:56 2023-06-26 09:07:56 Outpatient SFA SFA [id number] Dave Ibanez 2023-06-24 08:21:08 2023-06-24 08:21:08 Outpatient SFA SFA [id number] Dave Ibanez 2023-06-23 00:00:00 2023-06-23 00:00:00 Outpatient KATERYNA MITCHELL [id number] [facility] 2023-06-23 00:00:00 2023-06-23 00:00:00 Outpatient GEORGINA FOSTER KATERYNA MITCHELL [id number] [facility] 2023-06-23 00:00:00 2023-06-23 00:00:00 Outpatient KATERYNA MITCHELL [id number] [facility] 2023-06-23 00:00:00 2023-06-23 00:00:00 (TEL) [facility] [id number] [facility] 2023-06-12 13:39:43 2023-06-12 13:39:43 Outpatient SFA SFA [id number] Dave Goff Shamar 2023-06-10 08:22:41 2023-06-10 08:22:41 Outpatient SFA SFA [id number] Dave Ibanez 2023-05-28 00:00:00 2023-05-28 00:00:00 Outpatient GUS NERI [id number] [facility] 2023-05-28 00:00:00 2023-05-28 00:00:00 Outpatient SABINODARIUS [facility] MITCHELL [id number] [facility] 2023-05-27 11:07:00 2023-05-27 11:07:00 Outpatient SFA SFA [id number] Dave Ibanez 2023-05-26 00:00:00 2023-05-26 00:00:00 Outpatient PREZAQueta, GEORGINA MITCHELL [id number] [facility] 2023-05-22 10:41:13 2023-05-22 10:41:13 Outpatient SFA SFA [id number] Dave Ibanez 2023-05-21 00:00:00 2023-05-21 00:00:00 Outpatient CRISTIAN, GEORGINA MITCHELL [id number] [facility] 2023-05-21 00:00:00 2023-05-21 00:00:00 Outpatient GEORGINA FOSTER [id number] [facility] 2023-05-20 00:00:00 2023-05-20 00:00:00 Outpatient PREZAS, GEORGINA MITCHELL [id number] [facility] 2023-05-20 00:00:00 2023-05-20 00:00:00 [id number] 2023-05-20 00:00:00 2023-05-20 00:00:00 (TEL) [facility] [id number] [facility] 2023-05-01 00:00:00 2023-05-01 00:00:00 Outpatient PREZAS, GEORGINA MITCHELL [id number] [facility] 2023-04-30 15:35:00 2023-04-30 15:35:00 Outpatient LABUsha MITCHELL [id number] [facility] 2023-04-30 14:30:00 2023-04-30 14:30:00 Outpatient ENRICO SIDDIQUI [id number] [facility] 2023-04-29 00:00:00 2023-04-29 00:00:00 Outpatient PREZASGEORGINA [id number] [facility] 2023-04-23 00:00:00 2023-04-23 00:00:00 (TEL) STLMLC ST[facility] [id number] [facility] 2023-04-23 00:00:00 2023-04-23 00:00:00 (TEL) STLMLC [facility] [id number] [facility] 2023-04-21 00:00:00 2023-04-21 00:00:00 Outpatient JUSTINE, GUS MITCHELL [id number] [facility] 2023-04-16 10:45:00 2023-04-16 10:45:00 Outpatient NERI, GUS MITCHELL [id number] [facility] 2023-04-09 00:00:00 2023-04-09 00:00:00 Outpatient GUS NERI [id number] [facility] 2023-04-03 00:00:00 2023-04-03 00:00:00 Outpatient GEORGINA FOSTER [id number] [facility] 2023-04-01 00:00:00 2023-04-01 00:00:00 Outpatient KATERYNA MITCHELL [id number] [facility] 2023-04-01 00:00:00 2023-04-01 00:00:00 Outpatient DARIUS GALLO [id number] [facility] 2023-03-28 00:00:00 2023-03-28 00:00:00 Outpatient KATERYNA MITCHELL [id number] [facility] 2023-03-28 00:00:00 2023-03-28 00:00:00 Outpatient PREZASGEORGINA [id number] [facility] 2023-03-26 11:30:00 2023-03-26 11:30:00 Outpatient ENRICO SIDDIQUI [id number] [facility] 2023-03-26 11:20:00 2023-03-26 11:20:00 Outpatient LAB90 KATERYNA MITCHELL [id number] [facility] 2023-03-26 00:00:00 2023-03-26 00:00:00 Outpatient PREZAS, GEORGINA KATERYNA MITCHELL [id number] [facility] 2023-03-24 00:00:00 2023-03-24 00:00:00 Outpatient PREZAS, GEORGINA KATERYNA MITCHELL [id number] [facility] 2023-03-24 00:00:00 2023-03-24 00:00:00 (TEL) STLC STLC [id number] [facility] 2023-03-12 00:00:00 2023-03-12 00:00:00 Outpatient PREZAS, GEORGINA KATERYNA MITCHELL [id number] [facility] 2023-03-07 13:15:00 2023-03-07 13:15:00 Outpatient NERIGUS KATERYNA MITCHELL [id number] [facility] 2023-03-07 00:00:00 2023-03-07 00:00:00 Outpatient RAVENNEO [facility]NA MITCHELL [id number] [facility]23-03-03 00:00:00 2023-03-03 00:00:00 Outpatient PREZAS, GEORGINA KATERYNA MITCHELL [id number] [facility] 2023-03-03 00:00:00 2023-03-03 00:00:00 Outpatient PREZAS, GEORGINA KATERYNA MITCHELL [id number] [facility] 2023-03-03 00:00:00 2023-03-03 00:00:00 Outpatient PREZAS, GEORGINA [facility] MITCHELL [id number] [facility] 00:00:00 2023-02-26 00:00:00 Outpatient PREZAS, GEORGINAERNIE MITCHELL [id number] [facility] 2023-02-26 00:00:00 2023-02-26 00:00:00 (TEL) STLC STLC [id number] [facility] 2023-02-25 14:00:00 2023-02-25 14:00:00 Outpatient LAB90 KATERYNA MITCHELL [id number] [facility] 2023-02-25 13:30:00 2023-02-25 13:30:00 Outpatient GEORGINA FOSTER KATERYNA MITCHELL [id number] [facility] 2023-02-25 00:00:00 2023-02-25 00:00:00 Outpatient KATERYNA MITCHELL [id number] [facility] 2023-02-25 00:00:00 2023-02-25 00:00:00 Outpatient DARIUS GALLO [id number] [facility] 2023-01-24 00:00:00 2023-01-24 00:00:00 Outpatient DARREL CHOI [id number] [facility] 2023-01-21 00:00:00 2023-01-21 00:00:00 Outpatient MD KATERYNA RASHID [id number] [facility] 2023-01-20 07:30:00 2023-01-20 07:30:00 Outpatient KATERYNA MITCHELL [id number] [facility] 2023-01-15 15:30:00 2023-01-15 15:30:00 Outpatient NERI, CHATAU KATERYNA MITCHELL [id number] [facility] 2023-01-13 11:15:00 2023-01-13 11:15:00 Outpatient KATERYNA MITCHELL [id number] [facility] 2023-01-13 00:00:00 2023-01-13 00:00:00 Outpatient KATERYNA MITCHELL [id number] [facility] 2023-01-13 00:00:00 2023-01-13 00:00:00 Outpatient KATERYNA MITCHELL [id number] [facility] 2023-01-10 00:00:00 2023-01-10 00:00:00 Outpatient DARIUS GALLO [id number] [facility] 2023-01-09 11:30:00 2023-01-09 11:30:00 Outpatient VELIA VALENZUELA [id number] [facility] 2023-01-09 00:00:00 2023-01-09 00:00:00 Outpatient MD KATERYNA RASHID [id number] [facility] 2023-01-03 00:00:00 2023-01-03 00:00:00 Outpatient PREZASGEORGINA KATERYNA MITCHELL [id number] [facility] 2023-01-02 08:45:00 2023-01-02 08:45:00 Outpatient LABUsha KATERYNA MITCHELL [id number] [facility]authier 2023-01-02 00:00:00 2023-01-02 00:00:00 Outpatient PREZASGEORGINA KATERYNA MITCHELL [id number] [facility] 2022-12-20 00:00:00 2022-12-20 00:00:00 Outpatient KATERYNA MITCHELL [id number] [facility]yna [facility]authier 2022-12-19 14:00:00 2022-12-19 14:00:00 Outpatient PATBEVDARREL [id number] [facility]yna Gauthier 2022-12-19 10:40:00 2022-12-19 10:40:00 Outpatient KATERYNA MITCHELL [id number] [facility] 2022-12-19 08:00:00 2022-12-19 08:00:00 Outpatient NERI, MEIYU KATERYNA MITCHELL [id number] [facility] 2022-12-19 00:00:00 2022-12-19 00:00:00 Outpatient KATERYNA MITCHELL [id number] [facility] 2022-12-12 09:30:00 2022-12-12 09:30:00 Outpatient PATDARREL PABLO [id number] [facility] 2022-12-09 00:00:00 2022-12-09 00:00:00 Outpatient PREZASGEORGINA KATERYNA MITCHELL [id number] [facility] 2022-12-05 00:00:00 2022-12-05 00:00:00 Outpatient PREZAS, GEORGINA KATERYNA MITCHELL [id number] [facility] 2022-11-27 13:30:00 2022-11-27 13:30:00 Outpatient PREZASTAIWOGEORGINAERNIE MITCHELL [id number] [facility] 2022-11-26 00:00:00 2022-11-26 00:00:00 Outpatient PREZAS, GEORGINA MITCHELL KATERYNA [id number] [facility] 2022-11-19 10:40:00 2022-11-19 10:40:00 Outpatient KB KATERYNA MITCHELL [id number] [facility] 2022-11-18 00:00:00 2022-11-18 00:00:00 Outpatient DARIUS GALLO KATERYNA MITCHELL [id number] [facility] 2022-11-14 11:30:00 2022-11-14 11:30:00 Outpatient PREZAS, GEORGINA MITCHELL KATERYNA [id number] [facility] 2022-11-14 00:00:00 2022-11-14 00:00:00 Outpatient PREZAS, GEORGINA KATERYNA MITCHELL [id number] [facility] 2022-11-13 00:00:00 2022-11-13 00:00:00 Outpatient PREZAS, GEORGINA KATERYNA MITCHELL [id number] [facility] 2022-11-06 09:15:00 2022-11-06 09:15:00 Outpatient OU, CHRISTIANO KATERYNA MITCHELL [id number] [facility] 2022-10-29 08:30:00 2022-10-29 08:30:00 Outpatient KATERYNA MITCHELL [id number] [facility] 2022-10-25 00:00:00 2022-10-25 00:00:00 Outpatient DARIUS GALLO KATERYNA MITCHELL [id number] [facility] Sey[facility] 2022-09-25 10:05:00 2022-09-25 10:05:00 Outpatient KATERYNA MITCHELL [id number] [facility] Seybold 2022-09-25 10:00:00 2022-09-25 10:00:00 Outpatient KATERYNA MITCHELL [id number] [facility] Seybold 2022-09-25 09:55:00 2022-09-25 09:55:00 Outpatient KATERYNA MITCHELL [id number] [facility] Seybold 2022-09-25 09:00:00 2022-09-25 09:00:00 Outpatient OU, CHRISTIANO KATERYNA MITCHELL [id number] [facility] Seybold 2022-09-10 10:00:00 2022-09-10 10:00:00 Outpatient CHRISTIANO MENDOZA KATERYNA MITCHELL [id number] [facility] 2022-09-09 10:15:00 2022-09-09 10:15:00 Outpatient KB [facility]CHE[facility] [id number] [facility]22-[facility]-09 09:30:00 2022-09-09 09:30:00 Outpatient DARIUS GALLO [id number] [facility] 2022-09-06 16:00:00 2022-09-06 16:00:00 Outpatient DARIUS GALLO [id number] [facility] 2022-09-02 13:45:00 2022-09-02 13:45:00 Outpatient PRANAVLATHA KATERYNA MITCHELL [id number] [facility] 2022-08-15 00:00:00 2022-08-15 00:00:00 Outpatient DARIUS GALLO [id number] [facility] 2022-07-10 00:00:00 2022-07-10 00:00:00 Outpatient DARIUS GALLO [id number] [facility] 2022-07-09 00:00:00 2022-07-09 00:00:00 ambulatory STLMLC STLMLC [id number] [facility] 2022-07-04 00:00:00 2022-07-04 00:00:00 ambulatory STLMLC STLMLC [id number] [facility] 2022-07-03 00:00:00 2022-07-03 00:00:00 Outpatient DARIUS GALLO [id number] [facility] 2022-07-02 00:00:00 2022-07-02 00:00:00 ambulatory STLMLC STLMLC [id number] [facility] 2022-06-26 00:00:00 2022-06-26 00:00:00 Outpatient DARIUS AGLLO [id number] [facility] 2022-06-26 00:00:00 2022-06-26 00:00:00 ambulatory STLMLC STLMLC [id number] [facility] 2022-06-12 00:00:00 2022-06-12 00:00:00 Outpatient DARIUS GALLO KATERYNA [id number] [facility] 2022-06-07 16:10:00 2022-06-07 16:10:00 Outpatient LAB90 KATERYNA STEELESEY [id number] [facility] 2022-06-07 15:30:00 2022-06-07 15:45:00 Office Visit Darius Gallo [place] [id number] [facility] 2022-05-15 00:00:00 2022-05-15 00:00:00 Outpatient DARIUS GALLO KATERYNA MITCHELL [id number] [facility] 2022-05-10 15:30:00 2022-05-10 16:00:00 Office Visit Darius Gallochepe [place] [id number] [facility] 2022-05-08 00:00:00 2022-05-08 00:00:00 ambulatory STLMLC STLMLC [id number] [facility] 2022-04-16 00:00:00 2022-04-16 00:00:00 ambulatory STLMLC STLMLC [id number] [facility] 2022-04-15 00:00:00 2022-04-15 00:00:00 ambulatory STLMLC STLMLC [id number] [facility] 2022-03-28 00:00:00 2022-03-28 00:00:00 ambulatory STLMLC STLMLC [id number] [facility] 2022-03-21 00:00:00 2022-03-21 00:00:00 ambulatory STLMLC STLMLC [id number] [facility] 2022-03-13 00:00:00 2022-03-13 00:00:00 ambulatory STLMLC STLMLC [id number] [facility] 2022-03-12 00:00:00 2022-03-12 00:00:00 ambulatory STLMLC STLMLC [id number] [facility] 2022-02-26 00:00:00 2022-02-26 00:00:00 ambulatory STLMLC STLMLC [id number] [facility] 2022-02-26 00:00:00 2022-02-26 00:00:00 ambulatory STLMLC STLMLC [id number] [facility] 2022-02-12 00:00:00 2022-02-12 00:00:00 ambulatory STLMLC STLMLC [id number] [facility] 2022-02-05 00:00:00 2022-02-05 00:00:00 ambulatory STLMLC STLMLC [id number] [facility] 2022-01-30 00:00:00 2022-01-30 00:00:00 ambulatory STLMLC STLMLC [id number] [facility] 2022-01-30 00:00:00 2022-01-30 00:00:00 ambulatory STLMLC STLMLC [id number] [facility] 2022-01-30 00:00:00 2022-01-30 00:00:00 ambulatory STLMLC STLMLC [id number] [facility] 2022-01-21 00:00:00 2022-01-21 00:00:00 ambulatory STLMLC STLMLC [id number] [facility] 2022-01-21 00:00:00 2022-01-21 00:00:00 ambulatory STLMLC STLMLC [id number] [facility] 2022-01-21 00:00:00 2022-01-21 00:00:00 ambulatory STLMLC STLMLC [id number] [facility] 2022-01-18 00:00:2022-01-18 00:00:00 ambulatory STLMLC STLMLC [id number] [facility] 2022-01-15 00:00:00 2022-01-15 00:00:00 ambulatory STLMLC STLMLC [id number] [facility] 2022-01-08 00:00:00 2022-01-08 00:00:00 Outpatient DARIUS GALLO KATERYNA MITCHELL [id number] [facility] 2021-12-27 00:00:00 2021-12-27 00:00:00 Outpatient DARIUS GALLO KATERYNA MITCHELL [id number] [facility] 2021-12-25 00:00:00 2021-12-25 00:00:00 Outpatient POONAM GALLOPAULETTE MITCHELL [id number] [facility] 2021-12-09 00:00:00 2021-12-09 00:00:00 Outpatient KATERYNA MITCHELL [id number] [facility] 2021-11-29 00:00:00 2021-11-29 00:00:00 Outpatient DARIUS GALLO KATERYNA MITCHELL [id number] [facility] 2021-11-27 08:15:00 2021-11-27 08:15:00 Outpatient LABUsha KATERYNA MITCHELL [id number] [facility] 2021-11-27 00:00:00 2021-11-27 00:00:00 Outpatient DARIUS GALLO KATERYNA MITCHELL [id number] [facility] 2021-11-27 00:00:00 2021-11-27 00:00:00 Outpatient KATERYNA MITCHELL [id number] [facility] 2021-11-26 10:45:00 2021-11-26 11:15:00 Office Visit SabinoPoonampaulette Sparks [id number] [facility] 2021-11-23 00:00:00 2021-11-23 00:00:00 Outpatient YOHAN FRIEDMAN [id number] [facility] 2021-11-05 00:00:00 2021-11-05 00:00:00 ambulatory STLMLC STLMLC [id number] [facility] 2021-11-01 00:00:00 2021-11-01 00:00:00 ambulatory STLMLC STLMLC [id number] [facility] 2021-10-29 00:00:00 2021-10-29 00:00:00 ambulatory STLMLC STLMLC [id number] [facility] 2021-10-24 00:00:00 2021-10-24 00:00:00 ambulatory STLMLC STLMLC [id number] [facility] 2021-10-23 00:00:00 2021-10-23 00:00:00 (TEL) STLMLC STLMLC [id number] [facility] 2021-10-16 00:00:00 2021-10-16 00:00:00 ambulatory STLMLC STLMLC [id number] [facility] 2021-04-17 12:26:00 2021-04-17 20:09:00 Emergency E MADELINE ULLOA [facility] [id number] [facility] 2021-02-28 19:00:00 2021-02-28 20:05:00 Emergency Raul Elkins [facility] [id number] 2021-02-28 18:54:00 2021-02-28 18:54:00 Emergency X [facility] [id number] [facility] 2020-11-12 10:27:00 2020-11-12 13:27:00 Emergency X JERROD ANDERSON [facility] ERT [id number] [facility] 2020-11-12 10:27:00 2020-11-12 10:27:00 Emergency X JERROD ANDERSON [facility] ERT [id number] [facility] 2020-10-10 13:09:00 2020-10-10 19:20:00 Emergency E LATHA AVILA [facility]500 [facility] 2020-06-28 14:56:00 2020-06-28 17:04:00 Emergency Rafia Pisano [facility] 1.2.840.114 350.1.13.10 4.2.7.2.686 [id number] 2020-06-28 14:56:00 2020-06-28 14:56:00 Emergency X RAFIA PISANO [facility] ERT [id number] [facility] 2020-06-28 00:00:00 2020-06-28 00:00:00 Orders Only Doctor Unassigned, [place] [facility] 1.2.840.114 350.1.13.10 4.2.7.2.686 [id number] 2020-03-20 18:31:57 2020-03-20 20:18:00 Emergency Errol Sharp [facility] 1.2.840.114 350.1.13.10 4.2.7.2.686 [id number] 2020-03-20 18:31:57 2020-03-20 18:31:57 Emergency X ERROL SHARP [facility] ERT [id number] [facility] Results Test Description Test Time Test Comments Results Resul t Comments Source XR LUMBAR SPINE 3 VW 2024-06-11 9 00:06:37 Exam: Lumbar Spine, 07/07/2024 6:00 PM. Ordering Physician: LUC BARRIGA. History: Back pain. Technique: 3 views of the lumbar spine. Comparison: None. Findings: Vertebral body height and alignment are maintained. Disc spaces aremaintained. Endplate osteophytes are noted at multiple levels.Paravertebra l soft tissues are unremarkable. ?Sacroiliac joints are patent. Visualized sacral arcuate lines are intact. [facility] - XR FLUOROSCOPY 0-60 MIN 7 10:27:00 Name: RACHAEL OQUENDO [place] : 1960 Age/S: 58 / M [address] [place] Unit #: [id number] Loc: [place] [address] Phys: Kevin Rollins MD Acct: [id number] Dis Date: Status: [facility] PHONE #: [phone] Exam Date: 01/14/2019 0910 FAX #: Reason: PORT A CATH PLACEMENT EXAMS: CPT: [id number] XR FLUOROSCOPY 0-60 MIN 07692 Fluoro Time: 8 SEC DAP (Gy m2): [...] PAGE 1 Signed Report Name: RACHAEL OQUENDO [place] : 1960 Age/S: 58 / M [id number] [place] Unit #: [id number] Loc: [place] [address] Phys: Kevin Rollins MD Acct: [id number] Dis Date: Status: [facility] PHONE #: [phone] Exam Date: 01/14/2019 0910 FAX #: Reason: PORT A CATH PLACEMENT EXAMS: CPT: [id number] XR FLUOROSCOPY 0-60 MIN 15585 Fluoro Time: 8 SEC DAP (Gy m2): Air Kerma (mGy): (Continued) Technologist: Sandy Lucero, RT(R)(CT); Mary Carbajal RT(R) Trnutb Date/Time: 01/14/2019 (1027) [id number] Orig Print D/T: S: 01/14/2019 (1030) PAGE 2 Signed Report - XR CHEST 1 [id number] 10:04:00Name: RACHAEL OQUENDO [place] : 1960 Age/S: 58 / M [address] [place] Unit #: [id number] Loc: [place] [address] Phys: Kevin Rollins MD Acct: [id number] Dis Date: Status: [facility] PHONE#: [phone] Exam Date: 01/14/2019 0955 FAX #: Reason: port placement EXAMS: CPT: [id number] XR CHEST 1 V 81682 Fluoro Time: DAP (Gy m2): Air Kerma [...] PAGE 1 Signed Report Name: RACHAEL OQUENDO [facility] : 1960 Age/S: 58 / M [address] [facility] Unit #: [id number] Loc: [place] [address] Phys: Kevin Rollins MD Acct: [id number] Dis Date: Status: [facility] PHONE #: [phone] Exam Date: 01/14/2019 0955 FAX #: Reason: port placement EXAMS: CPT: [id number] XR CHEST 1 V 65691 Fluoro Time: DAP (Gy m2): Air Kerma (mGy): (Continued) Technologist: Rachael Izquierdo, RT(R)(CT); Mary Carbajal RT(R) Trnscb Date/Time: 01/14/2019 (1004) t.SDR.CB5 Orig Print D/T: S: 01/14/2019 (6461) PAGE 2 SignedReportGLUCOSE BEDSIDE [id number] 07:20:00* Test Item Value Reference Range Interpretation Comme nts GLUCOSE BEDSIDE TESTING (minerva t code = GLUBED) 137 mg/dL 70-110 H [id number] 16:52:00 RUN DATE: 01/06/19 [facility] - LAB *LIVE* PAGE 1 RUN TIME: 1652 Specimen Inquiry RUN USER: INTERFACE PATIENT: RACHAEL OQUENDO LOC: Francia U #: [id number] AGE/SX: 58/M ROOM: [place] [facility] RE12/31/18RICHELLE DR: Kevin Rollins MD : 64 BED: 1 DIS: 01/02/19 STATUS: DIS IN TLOC: -- SPEC #: [id number] RECD: 01/01/19 STATUS: MARCIA LEE #: [id number] ONELIA: 12/31/[address] [facility] [address]: Kevin Rollins MD ENTERED: 01/01/19 SP TYPE: SURG OTHR DR: Shamar Abreu ORDERED: SURG PATH LVL 6 COPIES TO: Shamar Abreu [address] [place] [address] [place] [address] [facility] [address] [place] [address] HISTOLOGY: TISSUE ID BLK PCS CESAR LEV PROCEDUREDISPOSITION ____ ___ ___ ___ SIGMOID COLON A 1-15 1 PROCEDURES: SURG PATH LVL 6 (01/01/19) TISSUES: A. SIGMOID COLON - SIGMOID COLON AND ANASTOMATIC COLON RINGS CLINICAL HISTORY COLON RECTAL CANCER -C18.9 CPT CODES CPT CODE(S): 25279 , , , , , , FINAL DIAGNOSIS Colon, sigmoid, anastomotic donuts, partial colectomy: MODERATELY DIFFERENTIATEDCOLORECTAL ADENOCARCINOMA, 6 CM GREATEST DIMENSION 7 LYMPH NODES POSITIVE FOR METASTATIC CARCINOMA (7/10) MARGINS NEGATIVE CONTINUED ON NEXT PAGE RUN DATE: 01/06/19 [facility] - LAB *LIVE*PAGE 2 RUN TIME: 1652 Specimen Inquiry RUN USER: INTERFACE SPEC #: [facility]:[id number] PATIENT: RACHAEL OQUENDO #[id number] (Continued) GROSS DESCRIPTION Sigmoid colon and anastomotic [...] A3 Entire circumference of distal margin A4-A5 Residential Plumber sections of the lesion A6 Tumor with normal mucosa of proximal margin A7 Tumor with normal mucosa of closest distal margin A8 Normalmucosa A9 Residential Plumber sections of largest anastomotic ring A10 Residential Plumber sections of second anastomotic ring A11 Residential Plumber sections of mesentery A12-A14 Residential Plumber sections of mesentery with possible matted lymph nodes A15-A20 Entire lymph nodes, one lymph node each A21 Two lymph nodes A22 Two lymph nodes, serially sectioned A23 Three lymph nodes Grossing performed at [facility]ology, [address] [place] [address], [address], [place] [address]. Pool Installer: Hany Haji M.D. MICROSCOPIC DESCRIPTION Sigmoid colon and anastomotic colon rings. Sections demonstrate colonicmucosa. A mass with infiltrating neoplastic glands identified. The glands penetrate through the muscularis to involve the serosa. Lymphovascular invasion is identified. Sections of mesentery demonstrate tumor involving soft tissue. Lymph nodes are identified. Metastatic carcinoma is present in 7 lymph nodes. A total of 10 lymph nodes are identified.The carcinoma CONTINUED ON NEXT PAGE ------ ------RUN DATE: 01/06/19 [facility] - LAB *LIVE* PAGE 3 RUN TIME: 1652 Specimen Inquiry RUN USER: INTERFACE SPEC #: [id number] PATIENT: RACHAEL OQUENDO #[id number] (Continued) MICROSCOPIC DESCRIPTION (Continued) demonstrates moderately differentiated [...] Not applicable Treatment effect: No known presurgical therapyLymphovascular invasion: Present Perineural invasion: Not identified Tumor deposits: Present, 1 Regional lymph nodes: Number of lymph nodes involved: 7 Number of lymph nodes examined: 10 Pathologic stage: Primary tumor: pT3 Regional lymph nodes: pN2b Signed SIGNATURE ON FILE Bull Bueno 01/06/19 1650 - ENDOF REPORT GLUCOSE BEDSIDE [id number] 17:20:00* Test Item Value Reference Range Interpretation Comme nts GLUCOSE BEDSIDE TESTING (minerva t code = GLUBED) 103 mg/dL 70-110 N GLUCOSE BEDSIDE [id number] 11:28:00* Test Item Value Reference Range Interpretation Comme nts GLUCOSE BEDSIDE TESTING (minerva t code = GLUBED) 87 mg/dL 70-110 N GLUCOSE BEDSIDE [id number] 07:23:00* Test Item Value Reference Range Interpretation Comme nts GLUCOSE BEDSIDE TESTING (minerva t code = GLUBED) 108 mg/dL 70-110 N GLUCOSE BEDSIDE [id number] 20:29:00* Test Item Value Reference Range Interpretation Comme nts GLUCOSE BEDSIDE TESTING (minerva t code = GLUBED) 99 mg/dL 70-110 N GLUCOSE BEDSIDE [id number] 16:28:00* Test Item Value Reference Range Interpretation Comme nts GLUCOSE BEDSIDE TESTING (minerva t code = GLUBED) 84 mg/dL 70-110 N GLUCOSE BEDSIDE [id number] 11:30:00* Test Item Value Reference Range Interpretation Comme nts GLUCOSE BEDSIDE TESTING (minerva t code = GLUBED) 106 mg/dL 70-110 N GLUCOSE BEDSIDE [id number] 07:38:00* Test Item Value Reference Range Interpretation Comme nts GLUCOSE BEDSIDE TESTING (minerva t code = GLUBED) 120 mg/dL 70-110 H CBC W/AUTO [id number] 06:24:00* Test Item Value Reference Range Interpretation [...] = MDIFF) NO DIFF/SCN CRITERIA GLUCOSE BEDSIDE [id number] 21:45:00* Test Item Value Reference Range Interpretation Comme nts GLUCOSE BEDSIDE TESTING (minerva t code = GLUBED) 135 mg/dL 70-110 H BASIC METABOLIC [id number] 18:20:00* Test Item Value Reference Range Interpretation [...] code = CA) 8.1 MG/DL 8.5-10.1 L [id number] 18:20:00* Test Item Value Reference Range Interpretation Comme nts PHOSPHOROUS (test code = PHOS) 3.2 MG/DL 2.5-4.9 N [id number] 18:20:00* Test Item Value Reference Range Interpretation Comme nts MAGNESIUM (test code = MAG) 1.7 MG/DL 1.8-2.4 L GLUCOSE BEDSIDE [id number] 16:54:00* Test Item Value Reference Range Interpretation Comme nts GLUCOSE BEDSIDE TESTING (minerva t code = GLUBED) 160 mg/dL 70-110 H GLUCOSE BEDSIDE [id number] 14:29:00* Test Item Value Reference Range Interpretation Comme nts GLUCOSE BEDSIDE TESTING (minerva t code = GLUBED) 136 mg/dL 70-110 H GLUCOSE BEDSIDE [id number] 07:31:00* Test Item Value Reference Range Interpretation Comme nts GLUCOSE BEDSIDE TESTING (minerva t code = GLUBED) 125 mg/dL 70-110 H MRI Knee Right Wo ContMRI Knee Right Wo Cont Notes Date/Time Note Provider Source 2024-07-30 14:52:08 Chief Complaint Patient presents with Consultation For VIVIENNE/CPAP, brought CPAP machine. Syeda Burkett LVN [facility] 2024-07-07 20:15:00 Pt discharged with diagnosis of chronic midline low back pain without sciatica. Printed and verbal instructions reviewed with and given to pt. Prescriptions given x 2. Pt verbalized understanding of teaching, medications, and recommended follow-up. Denies questions or concerns at this time. Pt ambulatory with cane at discharge. Appears in no apparent distress. No ataxia noted. Accompanied by . [facility] 2024-07-07 17:34:48 Pt to ED accompanied by CO lower back pain. states "He has severe stenosis and comes to the ER all the time. Usually I take him to [place] but we were closer to here. I usually take him to the ER about once a month. His pain gets so severe that the oxycodone doesn't work and they have to give him an injection." Pt unable to recall name of injection but states it goes into his arm.Denies injury/trauma. Pt taking oxycodone 100mg for pain and is seeing pain management. Nae Matias RN [facility] 2024-07-07 17:07:00 [facility] Emergency Department Note Patient Name: Rachael Chery Date of : 1960 63 year old male Treatment Room: [facility] Primary Care Physician: Marielos Monteiro Patient Escorted by: Family [5] Mode of Arrival: Personal means [1] EMS Treatment Prior to ED Arrival: PYTHON DEVELOPER treatment: Medication (comment) PYTHON DEVELOPER treatment comments: daily meds Travel and Exposure Screening: Symptoms Does patient have any of these symptoms?: (not recorded) Exposure Screening Has patient had contact with someone with a communicable disease in the last month?: (not recorded) Diseases exposed to:: (not recorded) Is Patient ?: (not recorded) Exposure Date: (not recorded) Chief Complaint: Chief Complaint Patient presents with Back Pain History of Present Illness: PT presents with acute on chronic exacerbation of back pain. PT took his prescribed oxycodone. PT has a pain management doctor. PT denies any recent injuries, and denies any fever or iv drug abuse. Pt denies any urinary/bowel incontinence. Past Medical History/Immunizations: Past Medical History: Diagnosis Date Anxiety Depression Diabetes HTN (hypertension) Tetanus received in last 5 years: Yes Childhood immunizations: Up-to-date Allergies: No Known Allergies Past Social History: Substance & Sexual Activity No substance use or sexual activity history on file. Past Surgical History: No past surgical history on file. Review of Systems: Review of Systems Constitutional: Negative for fever. Genitourinary: Negative for bladder incontinence. Musculoskeletal: Positive for back pain. Neurological: Negative for seizures. Physical Exam: ED Triage Vitals [07/07/241735] Weight 102.5 kg (226 lb) Actual or estimated Estimated by patient/family report Height 1.626 m (5' 4") BP 124/77 Pulse 72 Resp 16 Temp 37.2 ?C (99 ?F) Temp source Oral SpO2 99 % Measured on Room air Physical Exam Vitals and nursing note reviewed. Constitutional: Appearance: Normal appearance. HENT: Head: Normocephalic. Eyes: Extraocular Movements: Extraocular movements intact. Cardiovascular: Rate and Rhythm: Normal rate. Pulmonary: Effort: Pulmonary effort is normal. Musculoskeletal: General: Tenderness present. Comments: Ttp over lumbar spine Neurological: General: No focal deficit present. Mental Status: He is alert and oriented to person, place, and time. Radiology: XR LUMBAR SPINE 3 VW Final Result Exam: Lumbar Spine, 07/07/2024 6:00 PM. Ordering Physician: LUC BARRIGA. History: Back pain. Technique: 3 views of the lumbar spine. Comparison: None. Findings: Vertebral body height and alignment are maintained. Disc spaces are maintained. Endplate osteophytes are noted at multiple levels. Paravertebral soft tissues are unremarkable. Sacroiliac joints are patent. Visualized sacral arcuate lines are intact. IMPRESSION Impression: No acute fracture or traumatic subluxation. RL: 2824 End of Report Lab Results: Lab Results - No data to display EKG: If EKG completed, see Procedure Note. Orders and Treatments: Orders Placed This Encounter Procedures XR LUMBAR SPINE 3 VW Orders Placed This Encounter Medications DISCONTD: morpHINE (4 mg/mL) injection 4 mg morpHINE (4 mg/mL) injection 4 mg First Provider Eval: ED Events Date/Time Event User Comments 07/07/241746 Medical Screening Begins LUC BARRIGA MD -- 07/07/241746 First Provider Evaluation LUC BARRIGA MD -- ED COURSE ED Course as of 07/07/241936Jul 07, 2024 1804 Will obtain xray of L spine, and administer analgesia. [PB] ED Course User Index [PB] Luc Barriga MD Diagnosis/Impression as of 07/07/241936 Chronic midline low back pain without sciatica Procedures: Procedures MDM: Medical Decision Making 63 yo M presents with acute exacerbation of chronic back pain. Amount and/or Complexity of Data Reviewed Radiology: ordered. Details: Xray of L spine neg for fx. Risk Prescription drug management. Parenteral controlled substances. Risk Details: PT and comfortable with plan. Flowsheet Documentation: Scoring Tools: No data recorded Disposition/Condition: ED Disposition None Discharge Medications: Patient's Medications START taking these medications No medications on file CONTINUE taking these medications which have NOT CHANGED CIPROFLOXACIN HCL 500 MG TABLET Take 1 tablet by mouth 2 (two) times daily. METHOCARBAMOL (ROBAXIN) 500 MG TABLET Take 1 tablet by mouth 3 (three) times daily as needed for Pain (scale 7-10). METHOCARBAMOL (ROBAXIN-750) 750 MG TABLET Take 1 tablet by mouth 4 (four) times daily as needed for Pain (scale 7-10). METHYLPREDNISOLONE (MEDROL, FEDERICO,) 4 MG TABLETS Take by mouth SEE-INSTRUCTIONS. follow package directions METHYLPREDNISOLONE (MEDROL, FEDERICO,) 4 MG TABLETS Take by mouth SEE-INSTRUCTIONS. follow package directions NAPROXEN (NAPROSYN) 500 MG TABLET Take 1 tablet by mouth 2 (two) times daily with meals. NAPROXEN 500 MG EC TABLET Take 1 tablet by mouth 2 (two) times daily with meals. START taking Modified Medications as Prescribed No medications on file STOP taking these medications No medications on file Follow-up: Electronically signed by: Luc Barriga MD 07/07/241936 [facility] 2024-02-04 08:45:10 Jodi Degroot Chief Complaint Patient presents with Shoulder Pain Left shoulder pain T [facility] 2024-01-27 09:03:59 No chief complaint on file. Anita Real T [facility] 2023-07-24 08:26:56 Formatting of this n ote is different from the original. Chief Complaint Patient presents with Oncology Consult Madeline Romano CMA II [facility] 2023-07-01 14:20:33 Formatting of this n ote might be different from the original. Patient is here for 4 month follow up. VSS Saumya Amos [facility] 2019-01-18 12:58:00 [id number] [facility] [id number] [place] [id number] PATIENT NAME: RACHAEL OQUENDO ADMIT DATE: 01/14/19 ACCOUNT NO: [id number] ROOM NO: AGE: 58 REPORT TYPE: OPERATIVE REPORT SEX: M ADMITTING PHYSICIAN: ATTENDING PHYSICIAN: Kevin Rollins MD OPERATION DATE: 01/14/2019 PREOPERATIVE DIAGNOSIS: Stage III colon cancer in need for long-term central venous access. POSTOPERATIVE DIAGNOSES: 1. Stage III colon cancer in need for long-term central venous access. 2. Status post ultrasound-guided placement of a right internal jugular Port-A-Cath placement. PROCEDURE PERFORMED: Ultrasound-guided placement of the right internal jugular Port-A-Cath and fluoroscopic interpretation. SURGEON: Kevin Rollins MD. METAL BUILDING ASSEMBLER: None. ANESTHESIA: General, LMA plus local. INDICATIONS FOR PROCEDURE: Mr. Oquendo is a 58-year-old gentleman who was recently diagnosed with stage III colon cancer who is in need of long-term central venous access for chemotherapy. NARRATIVE OF PROCEDURE: Prior to the procedure, the risks, benefits, and alternatives of the procedure were explained to the patient and the patient did provide informed consent. After obtaining the informed consent, the patient was taken back to the operating room and positioned on the OR table in supine position. A time-out was then performed by all participating parties and agreed upon as being correct. The patient did receive perioperative antibiotics within one hour of skin incision. The patient did have SCDs on and functioning prior to induction of anesthesia. All participants in the operation were dressed in appropriate surgical attire including hat, mask, gloves, gown, eye protection, and shoe covers. The patient was then induced under general anesthesia and LMA was placed. The patient was then repositioned with a shoulder roll placed transversely behind his shoulders to allow for slight hyperextension of the neck. The patient's chest was then prepped by clipping the excess hair with clippers and removing the loose hair with tape. Then, using the ultrasound probe, the right internal jugular vein was evaluated for patency and found to have no evidence of thrombosis or occlusion. At this time, the patient's right neck and chest was then prepped with ChloraPrep and given sufficient time to dry prior to draping with surgical towels and sterile blue drapes. Then, using the ultrasound in a sterile ultrasound probe cover, the right internal jugular vein PATIENT NAME: RACHAEL OQUENDO was identified and the area overlying the skin was anesthetized with 0.25% Marcaine. Then, using an introducer needle and syringe, the skin was punctured and the needle was advanced to the lumen of the internal jugular under ultrasound guidance. Upon entry into the lumen, the plunger of the syringe was aspirated and dark venous-appearing blood was returned. At this point, the syringe was disconnected leaving the introducer needle in place. Then, the guidewire was passed into the lumen of the [...] the drapes while attention was turned to the patient's right chest wall for creation of a pocket for the port. At this time, using local anesthetic, the area was infiltrated on the patient's right chest wall for local pain control. Then, a transverse incision was made with a #15-scalpel. The dissection was carried through the dermis into the subcutaneous tissue using electrocautery Bovie. Hemostasis was achieved concurrently throughout the dissection using electrocautery Bovie. After creation of a subcutaneous pocket inferior to the incision using hemostat clamps and the electrocautery Bovie, the catheter was connected to the subcutaneous tunneler. Then, the catheter was measured with the assistance of fluoroscopic imaging to have the catheter in the superior vena cava at the junction with the right atrium. After probably measuring the catheter was cut to size and then tunneled [...] then the sheath was peeled away. After peeling away the sheath leaving the catheter in place, fluoroscopic imaging was used to appropriately withdrawal the catheter to have proper placement in the superior vena cava. After properly locating the catheter tip at the junction of the atrium and superior vena cava, the mesh was further cut to size and clamped with a hemostat to prevent introduction of air. After cutting the catheter to size, it was connected to the subcutaneous port and the port was then placed into the pocket inferior to the chest wall incision and secured in place with 2-0 Prolene. After securing the port in place, the port was accessed through the skin using a Morris needle and I was able to successfully aspirate, after unclamping the catheter, I was able to successfully aspirate blood without difficulty. The catheter was then flushed with approximately 10 mL of heparinized saline locking. Then, the chest wall incision and neck incisions were then closed using 4-0 Vicryl. After closure of the skin, the chest wall was then infiltrated with 0.25% Marcaine for further local pain control. After anesthetizing the chest wall, the skin was then cleaned with normal saline and patted dry prior to dressing. Both neck and chest wall incision with a surgical adhesive in the form of Dermabond. The patient tolerated the procedure well with no immediate complications. SPECIMENS REMOVED: None. IMPLANTS: An 8-Czech PowerPort catheter. DRAINS: None. ESTIMATED BLOOD LOSS: Less than 10 mL. PATIENT NAME: RACHAEL OQUENDO DISPOSITION: At the conclusion of the case, the patient was awakened from anesthesia and LMA was removed. The patient was transferred to the PACU in fair condition for a postoperative chest x-ray to be discharged home per protocol. Dictated By: Kevin Rollins MD WT: OP:JHOAN/GOVIND/REBECCA Conf#: [id number]/DID#: [id number] Authenticated by Kevin Rollins MD On 02/02/2019 01:34:33 PM at 1334 PATIENT NAME: RACHAEL OQUENDO [facility] 2019-01-14 17:04:00 [facility] ([facility]) Post Anesthesia Evaluation REPORT#:[id number] REPORT STATUS: Signed DATE:01/14/19 TIME:1704 PATIENT: RACHAEL OQUENDO UNIT #: [id number] ROOM/BED: : 62 AGE: 58 SEX: M ATTEND: Kevin Rollins MD ADM AUTHOR: Filomena Carvalho MD * ALL edits or amendments must be made on the electronic/computer document * General Post-op: post surgery rounds Post Anesthesia Evaluation Anes. changes from pre-op eval ORM Surgeries: Surgery Date and Time: 01/14/2019 0800 Primary Procedure: PORT-A-CATH PLACEMENT Anesthetic: general LMA Date: 01/14/19 Level of consciousness: patient awake, able to answer [...] 1010 57 13 114/66 100 Room air /07 1005 58 13 110/67 100 Simple 10.025745 mask 03/07 1000 57 12 109/61 100 Simple 10.464025 mask 03/07 0955 61 15 107/61 100 Simple 10.846931 mask 03/07 0950 54 11 104/56 99 Simple 10.933508 mask 03/ 0946 Simple 10.077743 mask / 0945 55 11 111/55 99 03/07 0940 36.3 54 12 124/65 99 Simple 10.333824 mask 03/07 0711 36.5 54 18 103/63 96 Room air Cardiovascular: CV system stable, vital signs stable Respiratory/Airway: respiratory system stable, maintains without support Pain: adequately controlled Hydration: adequate, euvolemic Temp status: greater than 96.8F, normothermic Presence of N/V: no Anesthesia complications: no Other changes requiring f/u: none Conclusions: no apparent anes. issues, outpts eval prior DC home at 1705 RPT #: [id number] END OF REPORT [facility] 2019-01-14 09:51:00 [facility] ([facility]) Brief Discharge Note w/Med Rec REPORT#:[id number] REPORT STATUS: Signed DATE:01/14/19 TIME:950 PATIENT: RACHAEL OQUENDO UNIT #: [id number] ROOM/BED: : 62 AGE: 58 SEX: M ATTEND: Kevin Rollins MD ADM AUTHOR: Kevin Rollins MD * ALL edits or amendments must be made on the electronic/computer document * Med Rec Med Rec Discharge [...] Simple mask 01/14 946 O2 Flow Rate 10.968714 01/14 946 Pulse Ox 96 01/14 711 [...] Wound/dressing care: Clean wound daily, OK to shower tomorrow Pt. condition on discharge: stable Prescriptions: e-prescribe Additional instructions: Call if having fever greater t conn 101.5 or incisional issues Return to work/school: No Follow-up appointment(s): 10 days at 0953 RPT #: [id number] END OF REPORT [facility] 2019-01-14 09:43:00 [facility] ([facility]) Bedside Procedure Note REPORT#:[id number] REPORT STATUS: Signed DATE:01/14/19 TIME:942 PATIENT: RACHAEL OQUENDO UNIT #: [id number] ROOM/BED: : 62 AGE: 58 SEX: M ATTEND: Kevin Rollins MD ADM AUTHOR: Kevin Rollins MD * ALL edits or amendments must be made on the electronic/computer document * Bedside Procedure Note Bedside Procedure Note Start date: 01/14/19 Start time: 0845 Pre-procedure diagnosis: Need for long-term centeral venous access Post-procedure diagnosis: Same as above s/p right IJ port-a-cath placement Procedure performed: Right internal jugular port-a-cath placement Fluoroscopic interpretation Performed by: Dr. Kevin Rollins MD Shelver(s): none Indications: 58 yo M with stage 3 colon cancer in need of long-term chemotherapy. Time out completed: Yes Discussed risks, benefits, alt tx: yes Consent obtained: yes Consent obtained from: patient Anesthesia: general, local - bupivacaine Observer name: Name of independent trained observer: Insertion bundle: cap, full body drape, hand hygiene, mask, sterile gloves, sterile gown, chlorhexidine/alcohol Technique/Procedure: See dictation for full details. Specimens removed/altered: none Implant(s): 8 Fr power port Complications: none Estimated blood loss in ml's: 10 Findings: See dictation for full details. Disposition: tolerated proc. well, plan to D/C home at 0947 RPT #: [id number] END OF REPORT [facility] 2019-01-01 22:43:00 [facility] ([facility]) Brief Discharge Note w/Med Rec REPORT#:[id number] REPORT STATUS: Signed DATE:01/01/19 TIME:2242 PATIENT: RACHAEL OQUENDO UNIT #: [id number] ROOM[address]BED: [address] : 64 AGE: 58 SEX: M ATTEND: Kevin Rollins MD ADM AUTHOR: Kevin Rollins MD * ALL edits or amendments must be made on the electronic/computer document * Med Rec Med Rec Discharge [...] new medications: ACETAMINOPHEN/CODEINE (TYLENOL WITH CODEINE #3 300/30 MG) [...] Resp 18 01/02 161 O2 Flow Rate 10.512936 12/31 1430 Brief Discharge Note w/Med Rec [...] stable Prescriptions: e-prescribe Follow-up appointment(s): 7-10 days at 1112 RPT #: [id number] END OF REPORT [facility] 2019-01-01 13:36:00 [facility] ([facility] General Surgery Progress Note REPORT#:[id number] REPORT STATUS: Signed DATE:01/01/19 TIME:1336 PATIENT: RACHAEL OQUENDO UNIT #: [id number] [address]BED: [address] : 64 AGE: 58 SEX: M ATTEND: Kevin Rollins MD ADM AUTHOR: Kevin Rollins MD * ALL edits or amendments must be made on the electronic/computer document * General Date of surgery: 12/31/18 [...] Resp 18 01/01 1109 O2 Flow Rate 10.029045 12/31 1430 Vital Signs Date Temp Pulse [...] MG DAILY PO Lactated Ringer's 1,000 ML .[id number] IV Enoxaparin Sodium 40 MG Q24H SUBQ Influenza Virus Vaccine 60 MCG ASDIR IM Hydromorphone HCl 0.2 MG Q3H PRN PRN IV Lactated Ringer's 1,000 ML .[id number] IV (DC) Ondansetron HCl 4 MG Q6H [...] abdomen Site condition: dressing clean dry, dressing intact, incision intact HEENT: anicteric, atraumatic, normal conjunctiva/sclera, normocephalic Respiratory: aerating well, symmetric expansion, no distress Abdomen: tenderness, soft, no distention, no guarding Genitourinary - Male: no boss Extremities: moves all Neuro/ARTISTIC DIRECTOR: alert, normal speech Skin: dry, intact, normal color, normal temperature Results Findings/Data: Laboratory Tests 01/01/19 0500: [Embedded [...] (Auto) (20.5 - 51.1 %) 17.5 L Nash % (Auto) (1.7 - 9.3 %) 9.3 Eos % (Auto) (0.0 - 6.0 %) 0.1 Baso % (Auto) (0.0 - 2.0 %) 0.1 Neut # (Auto) (1.8 - 7.6 K/mm3) 7.73 H Lymph # (Auto) (0.6 - 3.0 K/mm3) 1.9 Nash # (Auto) (0.2 - 1.5 K/mm3) 1.0 Eos # (Auto) (0.0 - 0.4 K/mm3) 0.0 Baso # (Auto) (0.0 - 0.2 K/mm3) 0.0 Add Manual Diff (CRITERIA DIFF/SCN) NO Results: labs reviewed, vital signs stable, current med profile rev'd Treatment Prophylaxis Treatment Prophylaxis Boss documentation: The data below has been imported from nursing documentation. Any exceptions have been noted below under Provider comments. _ Nursing Documentation Date jemma inserted: 12/31/18 Date boss discontinued: 01/01/19 _ Provider comments: [] Diagnosis, Assessment Plan Problem List/A P: 1. History of low anterior resection of rectum 2. Colon cancer Free Text A P: 58 yo M s/p lap low anterior resection POD#1 1. Awaiting return of bowel function to advance diet. 2. Resume home meds 3. Pain management 4. Encourage ambulation. 5. Pathology pending. at 1341 RPT #: [id number] END OF REPORT [facility] 2018-12-31 15:07:00 [id number] [facility] [id number] [place] [address] PATIENT NAME: RACHAEL OQUENDO ADMIT DATE: 12/31/18 ACCOUNT NO: [id number] ROOM NO: [facility] AGE: 58 REPORT TYPE: OPERATIVE REPORT SEX: M ADMITTING PHYSICIAN: Kevin Rollins MD ATTENDING PHYSICIAN: Kevin Rollins MD OPERATION DATE: 12/31/2018 PREOPERATIVE DIAGNOSIS: Colon cancer. POSTOPERATIVE DIAGNOSES: 1. Colon cancer. 2. Status post laparoscopic low anterior resection. PROCEDURE PERFORMED: Laparoscopic low anterior resection. SURGEON: Kevin Rollins MD METAL BUILDING ASSEMBLER: LOAN Camargo ANESTHESIA: General endotracheal anesthesia plus local. INDICATIONS FOR PROCEDURE: Mr. Oquendo is a 58-year-old gentleman, who presented to my office with distal colon cancer found on colonoscopy. NARRATIVE OF PROCEDURE: Prior to the procedure, the risks, benefits, and alternatives of procedure were explained to the patient and the patient did provide informed consent. After obtaining the informed consent, the patient was taken back to the operating room and positioned on the OR table in supine position. A time-out was then performed by all participating parties and agreed upon as being correct. The patient did receive perioperative antibiotics within one hour of skin incision. The patient did have SCDs on and functioning prior to induction of anesthesia. All participants in the operation were dressed in appropriate surgical attire including hat, mask, gloves, gown, eye protection, and shoe covers. The patient was then induced under general anesthesia and intubated without complication. The patient's abdomen was then prepared by clipping the excess hair with clippers and removing the loose hair with tape. The patient was then repositioned into supine lithotomy using Shayne stirrups. The patient's abdomen was then prepared with ChloraPrep and given sufficient time to dry prior to draping with surgical towels and sterile blue drapes. The procedure was begun by performing a digital rectal exam with a gloved index finger and finding a patulous anus with normal tone and no evidence of distal obstruction. Then, a rigid sigmoidoscopy was performed per anus to approximately 15 cm. During the rigid sigmoidoscopy was noted that the patient did have some soft brown stool present in the rectal vault. This was evacuated with the suction. After evacuation of the rectal vault, the proctoscope was withdrawn without difficulty. Then, after scrubbing the intra-abdominal portion of this procedure was begun. The procedure was begun by making a transverse PATIENT NAME: RACHAEL OQUENDO incision in the suprapubic region with a #15 scalpel. The dissection was carried through the dermis into the subcutaneous tissue using electrocautery Bovie. Dissection was carried to the anterior rectus sheath using electrocautery Bovie. Then, the rectus abdominis muscle was spread at the midline and the preperitoneal fat was dissected using electrocautery Bovie. Upon reaching the peritoneum, the peritoneum was opened using a Metzenbaum scissors. Once into the peritoneum under the protection of my index finger, the peritoneum was opened in a longitudinal fashion using electrocautery Bovie. After opening up the peritoneum, the GelPOINT base was introduced into the peritoneal cavity and snugged to the level of the skin. Then, the cap with [address] was connected to the base and secured. After securing the cap, insufflation was achieved. After achievement of pneumoperitoneum using a 5-mm 30-degree laparoscope and camera, the peritoneal cavity was entered and visually inspected. After visual inspection, attention was turned to the anterior abdominal wall for placement of a single working trocar at the umbilicus. After placement of 5-mm working trocar at the umbilicus, the camera was repositioned to this trocar site. Then, attention was turned to the pelvis and left lower quadrant of the abdomen as the patient was repositioned in Trendelenburg with the left side elevated. After positioning the pelvic contents were evacuated from the pelvis using 2 atraumatic graspers. After evacuation of the small bowel from the pelvis the colon was followed to his most distal point to identify the tattoo che made by the endoscopist. During evaluation of the distal colon it was noted that there was indentation in the anterior surface of the colon that corresponded with the reported location of this low colonic mass. Distal to this port was the black ink from the endoscopist tattoo gio. At this point, attention was turned to the mesocolon at the level of the pelvic brim. Using the L-hook electrocautery, the peritoneum overlying the pelvic brim was opened in a longitudinal fashion. Then, using the L-hook the peritoneum was opened over the pelvic brim into the pelvis in a cephalic direction towards the blood supply. Then, using a combination of atraumatic grasper as well as a laparoscopic Kittner blunt dissection was performed through the mesocolon in the direction of the left ureter. The dissection was performed in an avascular plane, so minimal blood loss and was incurred. After sufficient dissection the left ureter was identified and observed to see vermiculation. After appropriately identifying the left ureter, the blood supply was isolated in the form of the superior rectal artery. After isolating the superior rectal artery a counterincision was made in the mesocolon using the LigaSure energy device. Then, using an Endo-APOLONIA stapler 45 mm with a white vascular load the superior rectal artery was stapled and divided. After successfully dividing the superior rectal artery, the dissection was carried in a lateral direction to the white line of Toldt in a retrocolic fashion. After completion of the [id number] direction, the atraumatic grasper and laparoscopic Kittner were withdrawn and the colon was then retracted in a medial fashion to expose the white line of Toldt. Then, using the LigaSure energy device, the white line of Toldt was dissected free from the lateral peritoneum. After dissecting the white line of Toldt, the previous plane of dissection was encountered. Then, the dissection was carried in a distal fashion along the white line of Toldt over the pelvic brim down into the pelvis. The dissection was carried along the lateral wall of the colon to the rectosigmoid junction. The dissection was carried down to the anterior peritoneal reflection in the pelvis and across to the right side to completely free the specimen and colon from the peritoneal attachments. After completely dissecting the distal colon free in a circumferential manner, the mesorectal blood supply was dissected to the level of the colonic wall using the LigaSure PATIENT NAME: RACHAEL OQUENDO energy device. Then, the distal point of transection was identified and using the Endo-APOLONIA 45 mm with a blue load with 4 firings the proximal rectum and distal colon was stapled and divided. After completely dissecting the distal colon, the specimen was mobilized into the peritoneal cavity. Irrigation with the suction shape brick molder revealed no evidence of active bleeding. After evacuation of the irrigation from the pelvis, the colon was then extracorporealized through the GelPOINT base. Then, using a 30-mm TA stapler the proximal point of dissection was identified and the blood supply to the mesocolon was dissected using LigaSure energy device up to that point. Then, the 30-mm TA was used to staple the proximal point of dissection. Then, using a #10 scalpel the proximal sigmoid was divided. After division of the colon, the specimen was passed off to be sent to pathology for analysis. Then, the anvil for the EEA stapler 33 mm was introduced into the distal colon and secured in place with pursestring PDS suture. After securing the anvil in place, it was reintroduced back into the peritoneal cavity. After introduction of the anvil and distal colon back into the peritoneal cavity, the insufflation was re-achieved after capping the GelPOINT. Then, using atraumatic grasper a test run of the length of the residual colon was tested to see if the anastomosis would be under tension and it was found to be sufficient to be tension-free anastomosis. At this time, the pelvis was again irrigated with about 100 mL of saline and evacuated with the suction shape brick molder. Then, my dental assistant teacher went below and perform successive dilations of the anus using a rectal and anal dilators up to 31 mm. Then, the EEA [...] properly align and free of tension the anvil was retracted and seated against the stapler. After achieving the appropriate pressure in the green zone the staple was fired with a single firing. After firing the stapler, the anvil was partially released to allow for removal of the EEA stapler per anus. After removal of the stapler, the anvil was fully released and disconnected from the spike and the anastomotic rings were examined and found to be 2 intact specimens. After observing the anastomotic rings, a leak test was then performed per anus by passage of a rigid proctoscope per anus distal to the anastomosis and clamping of the descending colon proximal to the anastomosis and submerging the anastomosis under fresh saline in the pelvis. Two successful leak tests were performed after insufflation with the rigid proctoscope. After completion of the leak test the chamber was opened and all gas was evacuated prior to withdrawal of the rigid proctoscope. Then, the irrigation was evacuated from the pelvis. After evacuation of the irrigation from the pelvis, no evidence of active bleeding was observed. The patient was then placed back into neutral position prior to evacuation of all insufflation. The GelPOINT device was then removed and the one trocar at the umbilicus was also removed. Then, the Pfannenstiel incision was closed in a layered fashion starting with the peritoneum, which was closed with running 0 Vicryl. The peritoneum was then infiltrated with 0.25% Marcaine for local pain control. The muscle was loosely reapproximated with interrupted 0 Vicryls in the midline. The anterior rectus sheath was then reapproximated with running #1 PDS. The anterior rectus sheath was then infiltrated with 0.25% Marcaine for local pain control. Naman's fascia was then reapproximated using 0 Vicryl in a running fashion. The skin was then infiltrated with 0.25% Marcaine for local pain control. The skin was then reapproximated with 4-0 Vicryl in a subcuticular fashion. The trocar site was also closed using 4-0 Vicryl in a subcuticular fashion. The skin was then cleaned with normal saline and patted dry prior to PATIENT NAME: RACHAEL OQUENDO dressing with surgical adhesive in the form of Skin Affix. The patient tolerated the procedure well with no immediate complications. SPECIMENS REMOVED: Sigmoid colon and anastomotic rings. IMPLANTS: None. DRAINS: None. ESTIMATED BLOOD LOSS: Less than 50 mL. DISPOSITION: At the conclusion of the case, the patient was awakened from anesthesia and extubated without complication to be transported to the PACU in fair condition to be admitted to the floor postoperatively for advancement of diet and await return of bowel function. Dictated By: Kevin Rollins MD WT: OP:JHOAN/GOVIND/REBCECA Conf#: [id number]/DID#: [id number] Authenticated by Kevin Rollins MD On 01/05/2019 02:30:53 PM at 1431 PATIENT NAME: RACHAEL OQUENDO [facility] 2018-12-31 14:35:00 [facility] ([facility]) Bedside Procedure Note REPORT#:[id number] REPORT STATUS: Signed DATE:12/31/18 TIME:1435 PATIENT: RACHAEL OQUENDO UNIT #: [id number] ROOM/BED: [place] [id number] : 62 AGE: 58 SEX: M ATTEND: Kevin Rollins MD ADM AUTHOR: Kevin Rollins MD * ALL edits or amendments must be made on the electronic/computer document * Bedside Procedure Note Bedside Procedure Note Start date: 12/31/18 Start time: 0845 Pre-procedure diagnosis: Colon cancer Post-procedure diagnosis: Same as above s/p lap low anterior resection Procedure performed: Laparoscopic low anterior resection Performed by: Dr. Kevin Rollins MD Shelver(s): LOAN Camargo Indications: 58 yo M with a distal colon cancer. Time out completed: Yes Discussed risks, benefits, alt tx: yes Consent obtained: yes Consent obtained from: patient Anesthesia: general, local - bupivacaine Insertion bundle: cap, full body drape, hand hygiene, mask, sterile gloves, sterile gown, chlorhexidine/alcohol Technique/Procedure: See dictation for full details. Specimens removed/altered: Sigmoid colon and anastomotic rings Implant(s): none Complications: none Estimated blood loss in ml's: 50 Findings: See dictation for full details. Disposition: tolerated proc. well, return to floor at 1442 RPT #: [id number] END OF REPORT [facility] 2018-12-31 13:56:00 [facility] ([facility]) Post Anesthesia Evaluation REPORT#:[id number] REPORT STATUS: Signed DATE:12/31/18 TIME:1356 PATIENT: RACHAEL OQUENDO UNIT #: [id number] ROOM/BED: [place] [id number] : [birth year] AGE: 58 SEX: M ATTEND: Kevin Rollins MD ADM AUTHOR: Divina Crabtree CRNA * ALL edits or amendments must be made on the electronic/computer document * Post Anesthesia Evaluation Anes. changes from pre-op eval ORM Surgeries: Surgery Date and Time: 12/31/2018 0800 Primary Procedure: LAPAROSCOPIC LOW ANTERIOR COLON Anesthetic: GETA Date: 12/31/18 Level of consciousness: patient awake, able to answer questions Vital signs: Vital Signs: Date Time Temp Pulse Resp B/P B/P Pulse O2 O2 Flow FiO2 Mean Ox Delivery Rate 12/31 1345 68 12 117/64 99 Simple 10.011359 mask 12/31 1340 37.6 74 12 116/64 100 Simple 10.818643 mask 12/31 0642 36.7 56 18 131/77 98 Room air 0.527729 Cardiovascular: no change, CV system stable, vital signs stable Respiratory/Airway: respiratory system stable, maintains without support Pain: adequately controlled Hydration: adequate Temp status: normothermic Presence of N/V: no Anesthesia complications: no Other changes requiring f/u: none Conclusions: no apparent anes. issues at 1357 RPT #: [id number] END OF REPORT [facility] 2018-12-29 16:15:00 [id number] [facility] [address] [place] [address] PATIENT NAME: RACHAEL OQUENDO ADMIT DATE: ACCOUNT NO: [id number] ROOM NO: AGE: 58 REPORT TYPE: eELECTROCARDIOGRAM SEX: M ADMITTING PHYSICIAN: Kevin Rollins MD ATTENDING PHYSICIAN: Kevin Rollins MD Order: [id number] Test Reason : PRE OP Test Date/Time [...] ECGs available Confirmed by DEEPIKA ROBLEDO MD (4) on 12/30/2018 8:59:23 PM Referred By: Kevin Rollins Confirmed by:DEEPIKA ROBLEDO MD at 5302 PATIENT NAME: RACHAEL OQUENDO [facility]
[2024-08-29] MEDS ORDERED: KETOROLAC 30 MG/ML INJ ONE (20:01)
[2024-08-29] MEDS ORDERED: HYDROCODONE/APAP 10/325 TAB ONE (20:01)
[2024-08-29] MEDS ORDERED: DIAZEPAM 5 MG TABLET ONE (20:02)
--- NOTE | 2024-08-29 20:55 | ER ---
Nurse's Notes [facility] Name: Taiwo Chery Age: 64 yrs Sex: Male : 1960 Arrival Date: 08/29/2024 Time: 19:13 Bed 6 Private MD: Diagnosis: Low back pain Presentation: 08/29 19:19 Chief complaint: Patient states: has had similar lower back pain for the last few years tm6 off and on, but came back yesterday. Sees pain management. Coronavirus screen: Vaccine status: Patient reports receiving the 2nd dose of the covid vaccine. Client denies travel out of the [place] in the last 14 days. Ebola Screen: Patient negative for fever greater than or equal to 101.5 degrees Fahrenheit, and additional compatible Ebola Virus Disease symptoms Patient denies exposure to infectious person. Patient denies travel to an Ebola-affected area in the 21 days before illness onset. No symptoms or risks identified at this time. Initial Sepsis Screen: Does the patient meet any 2 criteria? No. Patient's initial sepsis screen is negative. Does the patient have a suspected source of infection? No. Patient's initial sepsis screen is negative. Risk Assessment: Do you want to hurt yourself or someone else? Patient reports no desire to harm self or others. Onset of symptoms was August 28, 2024. 19:19 Method Of Arrival: Ambulatory tm6 19:19 Acuity: LEONARD 4 tm6 Triage Assessment: 19:19 General: Appears in no apparent distress. Behavior is calm, cooperative. Pain: tm6 Complains of pain in lumbar area, left low back and right low back Pain currently is 10 out of 10 on a pain scale. Pain began 1 day ago. EENT: No signs and/or symptoms were reported regarding the EENT system. Neuro: Level of Consciousness is awake, alert, obeys commands, Oriented to person, place, time, situation. Cardiovascular: Patient's skin is warm and dry. Respiratory: Airway is patent Respiratory effort is even, unlabored, Respiratory pattern is regular, symmetrical. GI: No signs and/or symptoms were reported involving the gastrointestinal system. Abdomen is round non-distended. : No signs and/or symptoms were reported regarding the genitourinary system. Derm: No signs and/or symptoms reported regarding the dermatologic system. Musculoskeletal: Reports pain in lumbar area, left low back and right low back since yesterday. Pain is 10 out of 10 on a pain scale. Historical: - Allergies: 19:18 No Known Allergies; tm6 - PMHx: 19:18 chronic back pain; colon cancer-in remission; diabetes mellitus; Hypertensive disorder; tm6 - PSHx: 19:18 tumor removed from colon (Hypertensive disorder); tm6 - Immunization history:: Client reports receiving the 2nd dose of the Covid vaccine. - Infectious Disease History:: Denies. - Social history:: Smoking status: Patient denies any tobacco usage or history of. Patient/guardian denies using alcohol. Screenin:07 [facility] ED Fall Risk Assessment (Adult) History of falling in the last 3 months, dd2 including since admission No falls in past 3 months (0 pts) Confusion or Disorientation No (0 pts) Intoxicated or Sedated No (0 pts) Impaired Gait No (0 pts) Mobility Assist Device Used Yes (1 pt) Altered Elimination No (0 pt) Score/Fall Risk Level 0 - 2 = Low Risk Oriented to surroundings, Maintained a safe environment, Educated pt \T\ family on fall prevention, incl call for assistance when getting out of bed, Assessed \T\ reinforced patient's understanding of fall precautions, Hourly rounding (assess needs \T\ fall precautionary measures) done. Abuse screen: Denies threats or abuse. Nutritional screening: No deficits noted. Tuberculosis screening: No symptoms or risk factors identified. Assessment: 20:07 General: Appears in no apparent distress. Behavior is calm, cooperative, appropriate dd2 for age. Pain: Complains of pain in low back area Pain currently is 8 out of 10 on a pain scale. Neuro: No deficits noted. Level of Consciousness is awake, alert, obeys commands, Oriented to person, place, time, situation, Appropriate for age. Cardiovascular: No deficits noted. Respiratory: No deficits noted. Airway is patent Respiratory effort is even, unlabored, Respiratory pattern is regular, symmetrical. GI: No deficits noted. No signs and/or symptoms were reported involving the gastrointestinal system. : No deficits noted. No signs and/or symptoms were reported regarding the genitourinary system. EENT: No deficits noted. No signs and/or symptoms were reported regarding the EENT system. Derm: No deficits noted. No signs and/or symptoms reported regarding the dermatologic system. Musculoskeletal: Circulation, motion, and sensation intact. Range of motion: intact in all extremities. Vital Signs: 19:18 Pulse 71; Resp 19; Temp 97.3(TE); Pulse Ox 98% on R/A; Weight 99.34 kg; Height 5 ft. 4 tm6 in. ; Pain 10/10; 19:19 BP 138 / 78; MAP 95 mmHg; tm6 21:20 BP 114 / 68; Pulse 64; Resp 16; Pulse Ox 97% on R/A; al5 19:18 Body Mass Index 37.59 (99.34 kg, 162.56 cm) tm6 19:18 Pain Scale: Adult tm6 Jose Coma Score: 20:07 Eye Response: spontaneous(4). Motor Response: obeys commands(6). Verbal Response: dd2 oriented(5). Total: 15. ED Course: 19:14 Patient arrived in ED. im 19:19 Arm band placed on right wrist. tm6 19:21 Triage completed. tm6 19:24 Flo Combs DO is Attending Physician. ms3 19:52 MALA KAPLAN, LELE is Primary Nurse. dd2 20:07 Patient has correct armband on for positive identification. Bed in low position. Call dd2 light in reach. Provided Education on: call light, medications, . Client placed on continuous cardiac and pulse oximetry monitoring. NIBP monitoring applied. Door closed. Noise minimized. Verbal reassurance given. 20:07 No provider procedures requiring assistance completed. Patient did not have IV access dd2 during this emergency room visit. Administered Medications: 20:06 Drug: Ida PO 10 mg-325 mg 1 tabs PO once Route: PO; dd2 21:19 Follow up: Response: No adverse reaction; Marked relief of symptoms al5 20:06 Drug: Diazepam PO 5 mg PO once Route: PO; dd2 21:19 Follow up: Response: No adverse reaction; Marked relief of symptoms al5 20:07 Drug: Ketorolac IM 15 mg IM once Route: IM; Site: left deltoid; dd2 21:19 Follow up: Response: No adverse reaction; Marked relief of symptoms al5 Medication: 20:07 VIS not applicable for this client. dd2 Outcome: 20:55 Discharge ordered by . ms3 21:20 Discharged to home ambulatory, with significant other, al5 21:20 Condition: good 21:20 Discharge instructions given to patient, significant other, Instructed on discharge instructions, follow up and referral plans. Demonstrated understanding of instructions, follow-up care, 21:20 Patient left the ED. al5 Signatures: Flo Combs DO DO ms3 Jenna Richmond Tawney, RN RN tm6 Meaghan Jorge RN RN al5 MALA KAPLAN RN RN dd2 Corrections: (The following items were deleted from the chart) 19:19 19:18 Allergies: Aspirin; tm6 tm6
--- NOTE | 2024-08-29 20:55 | EDPHYS ---
Physician Documentation [facility] Name: Taiwo Chery Age: 64 yrs Sex: Male : 1960 Arrival Date: 08/29/2024 Time: 19:13 Bed 6 Private MD: ED Physician Flo Combs HPI: 08/29 20:55 This 64 yrs old Male presents to ER via Ambulatory with complaints of Low Back ms3 Pain. 20:55 64-year-old male with past medical history of chronic back pain, colon cancer in ms3 remission, diabetes mellitus, hypertension presents to the emergency department for acute on chronic back pain that began 24 hours ago. Patient states he took his oxycodone and gabapentin that he is prescribed from pain management without improvement of his pain. Patient's states once every 2 to 3 months comes the emergency department for pain control. Patient states the pain is a 10/10 rating down his left leg. Patient denies saddle anesthesia, urinary or bowel incontinence, or urinary or bowel retention.. Historical: - Allergies: 19:18 No Known Allergies; tm6 - PMHx: 19:18 chronic back pain; colon cancer-in remission; diabetes mellitus; Hypertensive disorder; tm6 - PSHx: 19:18 tumor removed from colon (Hypertensive disorder); tm6 - Immunization history:: Client reports receiving the 2nd dose of the Covid vaccine. - Infectious Disease History:: Denies. - Social history:: Smoking status: Patient denies any tobacco usage or history of. Patient/guardian denies using alcohol. ROS: 20:55 Constitutional: Negative for fever, and chills. Neck: Negative for injury, pain, and ms3 swelling, Cardiovascular: Negative for chest pain, and palpitations. Respiratory: Negative for shortness of breath, cough, wheezing, and pleuritic chest pain, Abdomen/GI: Negative for abdominal pain, nausea, vomiting, diarrhea, and constipation, 20:55 Back: Positive for Pain, Exam: 20:55 Constitutional: This is a well developed, well nourished patient who is awake, alert, ms3 and in no acute distress. Head/Face: Normocephalic, atraumatic. Chest/axilla: Normal chest wall appearance and motion. Nontender with no deformity. Cardiovascular: Regular rate and rhythm with a normal S1 and S2. No gallops, murmurs, or rubs. Normal PMI, no JVD. No pulse deficits. Respiratory: Lungs have equal breath sounds bilaterally, clear to auscultation and percussion. No rales, rhonchi or wheezes noted. No increased work of breathing, no retractions or nasal flaring. Abdomen/GI: Soft, non-tender, with normal bowel sounds. No distension or tympany. No guarding or rebound. No evidence of tenderness throughout. 20:55 Back: pain, that is moderate, of the lumbar area, left low back and right low back and low back area, ROM is normal, normal spinal alignment noted, CVA tenderness, is absent, vertebral tenderness, is not appreciated, muscle spasm, is appreciated in the left low back and right low back, Vital Signs: 19:18 Pulse 71; Resp 19; Temp 97.3(TE); Pulse Ox 98% on R/A; Weight 99.34 kg; Height 5 ft. 4 tm6 in. ; Pain 10/10; 19:19 BP 138 / 78; MAP 95 mmHg; tm6 21:20 BP 114 / 68; Pulse 64; Resp 16; Pulse Ox 97% on R/A; al5 19:18 Body Mass Index 37.59 (99.34 kg, 162.56 cm) tm6 19:18 Pain Scale: Adult tm6 Jose Coma Score: 20:07 Eye Response: spontaneous(4). Motor Response: obeys commands(6). Verbal Response: dd2 oriented(5). Total: 15. MDM: 19:47 Medical Screening Exam initiated ms3 20:55 Differential diagnosis: strain, sciatica, Herniated disc. Data reviewed: vital signs, ms3 nurses notes, and as a result, I will discharge patient. I considered the following discharge prescriptions or medication management in the emergency department Medications were administered in the Emergency Department. See MAR. Historians other than the Patient: Spouse/Significant Other: Patient's . Counseling: I had a detailed discussion with the patient and/or guardian regarding the historical points, exam findings, and any diagnostic results supporting the discharge/admit diagnosis, the need for outpatient follow up, to return to the emergency department if symptoms worsen or persist or if there are any questions or concerns that arise at home. Special discussion: I discussed with the patient/guardian in detail that at this point there is no indication for admission to the hospital. It is understood, however, that if the symptoms persist or worsen the patient needs to return immediately for re-evaluation. ED course: On reevaluation patient symptoms improved, patient is alert and oriented x 4, no apparent distress, nontoxic-appearing, ambulatory in emergency department. Patient's states that she is arranging a primary care follow-up and will have patient follow-up with his pain management physician. Recommended follow-up in 2 to 3 days. Patient's and patient understand and agree with plan. All questions were answered. Return precautions discussed include worsening symptoms, fevers, urinary or bowel incontinence or retention,, or any other concerns.. Administered Medications: 20:06 Drug: Oaks PO 10 mg-325 mg 1 tabs PO once Route: PO; dd2 21:19 Follow up: Response: No adverse reaction; Marked relief of symptoms al5 20:06 Drug: Diazepam PO 5 mg PO once Route: PO; dd2 21:19 Follow up: Response: No adverse reaction; Marked relief of symptoms al5 20:07 Drug: Ketorolac IM 15 mg IM once Route: IM; Site: left deltoid; dd2 21:19 Follow up: Response: No adverse reaction; Marked relief of symptoms al5 Disposition Summary: 08/29/24 20:55 Discharge Ordered Notes: Location: Home ms3 Condition: Stable ms3 Diagnosis - Low back pain ms3 Followup: ms3 - With: Private Physician - When: 2 - 3 days - Reason: Recheck today's complaints Discharge Instructions: - Discharge Summary Sheet ms3 - Acute Back Pain, Adult ms3 Forms: - Medication Reconciliation Form ms3 - Antibiotic Education ms3 - Prescription Opioid Use ms3 - Patient Portal Instructions ms3 - Leadership Thank You Letter ms3 Signatures: Flo Combs DO DO ms3 Soni Ortega RN RN tm6 MALA KAPLAN RN RN dd2 Meaghan Jorge RN al5 Corrections: (The following items were deleted from the chart) 19:19 19:18 Allergies: Aspirin; tm6 tm6
[2024-08-30 00:41] VITALS: TEMP 97.3
[2024-08-30 00:43] VITALS: BP 114/68; O2SAT 97
== END 2024-08-29 21:20 | disposition home or self-care (01) ==
LOC: ER 19:13
DX: M54.50 Low back pain, unspecified (principal); C18.9 Malignant neoplasm of colon, unspecified
CPT/HCPCS: 96372; 99284

== ENCOUNTER 2024-09-22 16:08 | Emergency (ER) | payer OTHER ==
--- OUTSIDE RECORDS SUMMARY | 2024-09-22 16:14 | XMS REPORT | Continuity of Care Document ---
Author Name Unknown Address [address] [facility] [address] [place] [address] [facility] Address [address] [facility] [place] [address] Care Team Providers Care Fur Remodeler Name Role Phone GEORGINA FOSTER Primary Care Physician Unavailab Darius Paul Attending Clinician Unavailable Brittanie Wing Attending Clinician Unavailable GEORGINA FOSTER Attending Clinician Unavailable LAB90 Attending Clinician Unavailable KAWAR, TANIA Attending Clinician Unavailable LUC BARRIGA Attending Clinician UnavailLUC Olivo Attending Clinician UnavailLuc Olivo MD Attending Clinician [phone] DAVID KAPLAN Attending Clinician Unavailable ASUNCION BROWN Attending Clinician Unava ilable KARENA PERES Attending Clinician Unavailable MAXDARIUSZ DURÁN Attending Clinician Unavailable CELESTE PADRON Attending Clinician Unavailable ZEYADLINH MEZA Attending Clinician Unavailable 39, HOLTER Attending Clinician Unavailable COLETTE DOUGHERTYANA Attending Clinician Unavailable DARUIS GALLO Attending Clinician Unava ilable HERON HERNANDEZ [...] Un available Raul Elkins DO Attending Clinician [phone] JERROD ANDERSON Attending Clinician Unavailable LATHA AVILA Attending Clinician Unava ilable Rafia Medina Attending Clinician [phone] RAFIA PISANO Attending Clinician Unavailable Doctor Unassigned, Applegate Attending Clinician U navailable Errol Callejas Attending Clinician [phone] ERROL SHARP Attending Clinician Unavailable LUC BARRIGA Admitting Clinician UnavailJERROD Gonzalez Admitting Clinician Unavailable Payers Payer Name Policy Type Policy Number Effective Date Expirati on Date Source AETNA VANESSA DUAL COMPLETE CAP(HMO D-SNP OA) 7 [id number] 2023 00:00:00 [employer]ET[employer] MEDICARE OUT OF NETWORK [id number] 2023 00:00:00 [employer] VANESSA GOLD PLUS 33 D-SNP OA 7 [id number] 2022 00:00:00 HU[employer]NA MEDICARE 53 [id number] 2022 00:00:00 [facility] HUMANA MA 5 [id number] 2022 00:00:00 KIT MCKEE HMO-POS 16 [id number] 2021 00:00:00 [facility] [id number] 2019 00:00:00 Problems Condition Name Condition Details Condition Category Status Onset Date Resolution Date Last Treatment Date Treating Clinician Comments Source VIVIENNE on CPAP VIVIENNE on CPAP Disease Active 2023-11 00:00: 00 Kateryna Rojoold - Externa l Rotator cuff arthropath y, left Rotator cuff arthropath y, left Disease Active 06-10 00:00: 00 Kateryna Rojoold - Externa l Pre-op evaluation Pre-op evaluation Disease Active 12-16 00:00: 00 Kateryna Rojoold - Externa l DM type 2 with diabetic mixed hyperlipid emia (multi HCC) DM type 2 with diabetic mixed hyperlipid emia (multi HCC) Disease Active 02-25 00:00: 00 Kateryna Rojoold - Externa l Anxiety Anxiety Disease Active 02-25 00:00: 00 Kateryna Seybold - Externa l Primary insomnia Primary insomnia Disease Active 02-25 00:00: 00 Kateryna Jenkinsybold - Externa l Gastroesop hageal reflux disease without esophagiti s Gastroesop hageal reflux disease without esophagiti s Disease Active 02-25 00:00: 00 Kateryna Rojoold - Externa l Diabetic polyneurop athy associated with type 2 diabetes mellitus (multi HCC) Diabetic polyneurop athy associated with type 2 diabetes mellitus (multi HCC) Disease Active 02-25 00:00: 00 Kateryna Rojoold - Externa l Acute pain of right knee Acute pain of right knee Disease Active 02-25 00:00: 00 Kateryna Seybold - Externa l History of colectomy History of colectomy Disease Active 11-27 00:00: 00 Kateryna Gauthier - Externa l Chronic bilateral low back pain with bilateral sciatica Chronic bilateral low back pain with bilateral sciatica Disease Active 11-27 00:00: 00 Kateryna munroe Fatty liver Fatty liver Disease Active 11-27 00:00: 00 Kateryna Alvesa ludwig Acute pharyngiti s due to other specified [...] vs seek second opinion Kateryna munroe Class 1 obesity due to excess calories with serious comorbidit y and body mass index (BMI) of 34.0 to 34.9 in adult Class 1 obesity due to excess calories with serious comorbidit y and body mass index (BMI) of 34.0 to 34.9 in adult Disease Active 11-26 00:00: 00 Kateryna munroe DM type 2 with diabetic mixed hyperlipid emia (multi HCC) DM type 2 with diabetic mixed hyperlipid emia (multi HCC) Disease Active 11-26 00:00: 00 Kateryna munroe Severe obesity Severe obesity Disease [...] ion) HTN (hypertens ion) Disease Active Kateryna Seybold - Externa l Depression Depression Disease Active Vincent Gauthier DM (diabetes mellitus), type 2 DM (diabetes mellitus), type 2 Disease Active Kateryna Gauthier [id number] Other chronic pain Problem Common [facility] Incomplete emptying of bladder Incomplete emptying of bladder Problem [facility] Disorder of kidney and/or ureter Renal mass, right Problem [facility] [id number] Primary osteoarthr itis of right knee Problem Common [facility] [id number] Primary osteoarthr itis of left knee Problem [facility] [id number] BPH loc w urin obs/LUTS Problem [facility] [id number] Right-side d low back pain without sciatica, unspecifie d chronicity Problem [facility] Spasm Jerking movements of extremitie s Problem [facility] [id number] CPAP (continuou s positive airway pressure) dependence Problem Common 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 [id number] Other obstructiv e and reflux uropathy Problem [facility] [id number] Urethritis Problem Comm on [facility] [id number] Other stricture of urethral meatus in male Problem [facility] [id number] Body mass index (BMI) 40.0-44.9, adult Problem Common [facility] Hyperlipid emia Hyperlipid emia Problem Common [facility] [id number] Depression with anxiety Problem Common [facility] [id number] Morbid obesity Problem Common [facility] [id number] Essential hypertensi on Problem Common 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 Phimosis Phimosis Problem [facility] [id number] Lower urinary tract symptoms (LUTS) Problem [facility] Acute cystitis Acute cystitis with hematuria Problem [facility] [id number] Hx of colon cancer, stage III Problem [facility] Cancer Cancer Problem [facility] Dizziness Dizziness Problem Comm on [facility] [id number] Leg heaviness Problem [facility] Headache Frequent headaches Problem [facility] Gross hematuria Gross hematuria Problem [facility] Congenital cystic kidney disease Kidney cyst Problem [facility] Arthritis of both knees Arthritis of both knees Problem [facility] Allergies, Adverse Reactions, Alerts Allergy Name Allergy Type Status Severity Reaction(s) Onset Date Inactive Date Treating Clinician Comments Source No Known Allergie s DA Active U 12-29 00:00: 00 [facility] NO KNOWN ALLERGIE S Drug Class Active [facility] Social History Social Habit Start Date Stop Date Quantity Comments Source Sexual orientation U [facility] Gender identity Keisha Gauthier - External Exposure to SARS-CoV-2 (event) Not sure Kateryna duron History of Tobacco Use [facility] History of Social function 2023-07-24 00:00:00 2023-07-24 00:00:00 Kateryna Gauthier - External Sex 2021-10-31 07:49:13 2021-10-31 07:49:13 Male (finding) Kateryna Gauthier - External Sex assigned at 1960 00:00:00 1960 00:00:00 [facility] Smoking Status Start Date Stop Date Source Tobacco smoking consumption unknown [facility] Former Smoker 2024-01-06 00:00:00 2024-01-06 00:00:00 [facility] Never smoked tobacco Kateryna Gauthier - External Medications Ordered Medication Name Filled Medication Name Start Date Stop Date Current Medication? Ordering Clinician Indication Dosage Frequency Signature (SIG) Comments Components Source Albuterol HFA 108 (90 Base) MCG/ACT IN AERS 2023-11 00:00: 00 Yes [id number] 2{puff} Q.25D Inhale 2 puffs into the lungs every 6 hours as needed for wheezing or shortness of breath. Kateryna munroe Metoprolol Tartrate (LOPRESSOR) 25 MG oral Tablet 2023-11 0 00:00: 00 Yes [id number] 25mg Q.5D Take 1 tablet (25 mg total) by mouth 2 times daily. Kateryna munroe Empaglifloz in (Jardiance) 10 MG oral Tablet 2023-11 0 00:00: 00 Yes [id number] 10mg QD Take 1 tablet (10 mg [...] 1 dose, On Fri07/07/24 at 2015, STAT [facility] cyclobenzap rine 5 mg tablet 07-07 00:00: 00 Yes [id number] 5mg Take 1 tablet by mouth 3 (three) times daily as needed for Muscle Spasms for up to 15 doses. [facility] lidocaine 5 % (700 mg/patch) patch 07-07 00:00: 00 Yes [id number] 1{patch } Apply 1 Patch to area(s) daily. [facility] Aripiprazol e 15 MG oral Tablet [...] apply externally Cream 06-04 00:00: 00 Yes [id number] APPLY TO RASH IN UNDERARM AREAS TWICE [...] munroe Aripiprazol e 20 MG oral Tablet 7-18 00:00: 00 Yes 1{tbl} Take 1 tablet by mouth at bedtime. Kateryna munroe Enalapril Maleate 10 MG oral Tablet -15 00:00: 00 Yes [id number] 10mg QD Take 1 tablet (10 mg total) by mouth daily. Kateryna munroe Metoprolol Tartrate (LOPRESSOR) 25 MG oral Tablet 5-13 00:00: 00 Yes [id number] 25mg Q.5D Take 1 tablet (25 mg total) by mouth 2 times daily. Kateryna munroe Atorvastati n Calcium 40 MG oral Tablet 10 00:00: 00 Yes [id number] 40mg QD Take 1 tablet (40 mg total) by mouth daily. Kateryan munroe Empaglifloz in (Jardiance) 10 MG oral Tablet 02-17 00:00: 00 Yes [id number] 10mg QD Take 1 tablet (10 mg total) by mouth daily. Kateryna munroe Methylpredn isolone Acetate (Depo-Medro l) 40 mg/ml - Physician Administere d ([id number]) 02-03 14:15: 00 02-03 14:38 :00 No [id number] 9106 40mg Kateryna munroe Aspirin 81 MG [...] apply externally Cream 01-26 00:00: 00 Yes [id number] Apply to rash in underarm areas twice daily until it resolves (about 2 weeks). Repeat as necessary. . Kateryna munroe Ketoconazol e 2 % apply externally Cream 01-26 00:00: 00 Yes [id number] Apply to rash in underarm areas twice daily until it resolves (about 2 weeks). Repeat as necessary. . Kateryna munroe oxyCODONE-A cetaminophe n 7.5-325 MG oral Tablet 01-20 10:21: 35 Yes 1{tbl} Q.5D Take 1 tablet by mouth 2 times daily as needed for pain. Kateryna munroe HYDROcodone -Acetaminop hen 10-325 MG oral Tablet 01-20 10:20: 58 01-20 00:00 :00 No [id number] 1{tbl} QD Take 1 tablet by mouth [...] MG oral Tablet 01-15 00:00: 00 Yes [id number] 3 1000mg Take 1 tablet (1,000 mg total) by mouth in the morning and 1 tablet (1,000 mg total) in the evening. Take with meals. Kateryna munroe Atorvastati n Calcium 40 MG oral Tablet 12-18 00:00: 00 Yes [id number] 40mg Take 1 tablet (40 mg total) [...] Metrix Blood Glucose Test) in vitro Strip 2022-11- 00:00: 00 Yes [id number] 9109 Check BS twice daily. Kateryna munroe Empaglifloz in (Jardiance) 10 MG oral Tablet 2022-11 00:00: 00 Yes [id number] 10mg Take 1 tablet (10 mg total) [...] MG oral Tablet 2022-11 00:00: 00 Yes [id number] 10mg Take 1 tablet (10 mg total) [...] 08-01 00:00: 00 01-26 00:00 :00 No [id number] 1[drp] Place 1 drop into both eyes 2 times daily. Kateryna munroe Aspirin 81 MG oral Tablet Delayed Response 14 08:36: 13 Yes 81mg Take 1 tablet (81 mg total) by mouth. Kateryna munroe Aripiprazol e 15 MG oral Tablet 14 08:36: 13 Yes 15mg Take 1 tablet (15 mg total) by mouth daily. Kateryna munroe Ramelteon (Rozerem) 8 MG oral Tablet 07-24 08:36: 13 Yes 8mg Take 1 tablet (8 mg total) by mouth nightly. Kateryna munroe TRUEplus Lancets 33G does not apply [facility] 05 00:00: 00 Yes USE DIRECTED Kateryna munroe Aripiprazol e 15 MG oral Tablet 07-01 14:34: 46 Yes 15mg Take 1 tablet (15 mg total) by mouth daily. Kateryna munroe Trazodone HCl 100 MG oral Tablet 07-01 14:32: 18 07-01 00:00 :00 No Trazodone Oral once daily active Kateryna munroe Metformin HCl 1000 MG oral Tablet 07-01 00:00: 00 Yes [id number] 3 1000mg Take 1 tablet (1,000 mg [...] (Medrol) 4 MG oral Tablet Therapy Pack -31 00:00: 00 07-01 00:00 :00 No [id number] Take is instructed on pack Kateryna munroe Ciprofloxac in HCl (Cipro) 500 MG oral Tablet -17 00:00: 00 07-01 00:00 :00 No [id number] 500mg Take 1 tablet (500 mg total) by mouth 2 times daily for 7 days Kateryna munroe Naproxen 500 MG Naproxen 500 MG 0 [...] Tablet Delayed Response 03-04 00:00: 00 Yes [id number] TAKE 1 TABLET EVERY DAY Kateryna munroe Blood Glucose Calibration (True Metrix Level 1) Low in vitro Solution 03-04 00:00: 00 Yes Kateryna munroe Blood Glucose Monitoring Suppl (True Metrix Air Glucose Meter) w/Device does not apply Kit 03-04 00:00: 00 Yes USE MONITOR TO CHECK BLOOD SUGAR Kateryna munroe Enalapril Maleate 10 MG oral Tablet 03-04 00:00: 00 Yes [id number] TAKE 1 TABLET EVERY DAY Kateryna munroe Metoprolol Tartrate (LOPRESSOR) 25 MG oral Tablet 03-03 00:00: 00 Yes [id number] 25mg Take 1 tablet (25 mg total) by mouth 2 times daily Kateryna munroe Aspirin 81 MG oral Tablet Delayed Response 01-15 11:26: 27 Yes 1{tbl} Take 1 tablet by mouth Kateryna munroe Albuterol HFA 108 (90 Base) MCG/ACT IN AERS 01-02 00:00: 00 09-10 00:00 :00 No [id number] 2{puff} Q.25D Inhale 2 puffs into the lungs every 6 hours as needed for wheezing Kateryna munroe Aspirin 81 MG oral Tablet Delayed Response 12-19 09:34: 36 Yes 1{tbl} Take 1 tablet by mouth Kateryna munroe Sertraline HCl 50 MG oral Tablet 24 00:00: 00 Yes 50mg QD Take 1 [...] 11-27 00:00: 00 06-10 00:00 :00 No [id number] 150mg QD Take 1 tablet (150 mg total) by mouth daily as needed (anxiety) Kateryna munroe Doxepin HCl 50 MG oral Capsule 11-27 00:00: 00 02-03 00:00 :00 No [id number] 50mg Take 1 capsule (50 mg total) by mouth daily Kateryna munroe HYDROcodone -Acetaminop hen (NORCO) 5-325 MG oral Tablet 11-27 00:00: 00 02-25 00:00 :00 No [id number] 1{tbl} QD Take 1 tablet by mouth daily as needed for pain Kateryna munroe Amoxicillin -Pot Clavulanate 875-125 MG oral Tablet 11-14 00:00: 00 Yes [id number] 1{tbl} Take 1 tablet by mouth 2 times daily Kateryna munroe Benzonatate (Tessalon Perles) 100 MG oral Capsule 11-14 00:00: 00 Yes [id number] 100mg Q.[id number] 3D Take 1 capsule (100 mg total) [...] Yes 1{tbl} Take 1 tablet by mouth Katreyna munroe Bupropion HCL XL 150 MG OR TB24 2021-11 09:30: 15 Yes every 12 hours Kateryna munroe Gabapentin 600 MG oral Tablet 2021-11 09:30: 15 Yes 600mg Take 600 mg by mouth 3 times daily Kateryna munroe Enalapril Maleate 10 MG oral Tablet 2021-11 00:00: 00 Yes [id number] 10mg Take 1 tablet (10 mg total) by mouth daily Kateryna munroe Pantoprazol e Sodium 40 MG oral Tablet Delayed Response 2021-11 00:00: 00 Yes [id number] 40mg Take 1 tablet (40 mg total) by mouth daily Kateryna munroe Blood Glucose Monitoring Suppl (Blood Glucose Monitor System) w/Device does not apply Kit 07-09 00:00: 00 Yes Use monitor to check blood sugar Kateryna munroe [facility] Ortho[facility]isc 07-09 00:00: 00 No 15mg [facility] OrthoVisc OrthoVisc 07-09 00:00: 00 No 15mg [facility] OrthoVis OrthoVisc 0 07-09 00:00: 00 No 15mg [facility]isc Ortho[facility]isc 8 00:00: 00 No 15mg [facility] OrthoVisc OrthoVisc 2021-0 8-30 00:00: 00 No 15mg [facility]isc Orth[facility]isc 0 8 00:00: 00 No 15mg [facility] OrthoVisc OrthoVisc 0 8 00:00: 00 No 15mg [facility] OrthoVisc Ortho[facility]isc 0 8 00:00: 00 No 15mg [facility] OrthoVisc OrthoVisc 0 8 00:00: 00 No 15mg [facility] OrthoVisc OrthoVisc 2021-0 8 00:00: 00 No 15mg [facility] OrthoVisc OrthoVisc 0 8 00:00: 00 No 15mg [facility] Blood Glucose Monitoring Suppl (Blood Glucose Monitor System) w/Device does not apply Kit 07-09 00:00: 00 11-27 00:00 :00 No Use to check FSBS as needed. Kateryna munroe Glucose Blood in vitro Strip 07-09 00:00: 00 11-27 00:00 :00 No [id number] 1{each} 1 each by other route daily Use 1 as directed twice daily to check blood glucose. Kateryna munroe GNP Sterile Lancets 33G does not apply Misc 07-09 00:00: 00 11-27 00:00 :00 No 1{each} 1 each by does not apply route 2 to 3 times daily Kateryna munroe Metoprolol Tartrate 25 MG oral Tablet 07-07 00:00: 00 Yes [id number] 25mg Take 1 tablet (25 mg total) by mouth 2 times daily Kateryna munroe Atorvastati n Calcium 40 MG oral Tablet 07-07 00:00: 00 Yes [id number] 40mg Take 1 tablet (40 mg total) by mouth daily Kateryna munroe Metformin HCl 1000 MG oral Tablet 07-07 00:00: 00 07-01 00:00 :00 No [id number] 1000mg Take 1 tablet (1,000 mg total) by mouth in the morning and 1 tablet (1,000 mg total) in the evening. Take with meals. Kateryna munroe Applicators (Q-Tips/Sin gle-Tip) does not apply SWAB 07-04 00:00: 00 11-27 00:00 :00 No Use swab to clean site Kateryna munroe [facility] Orth[facility] 2021-0 8- 00:00: 00 No 15mg [facility]isc OrthoVisc 2021-0 8- 00:00: 00 No 15mg [facility] OrthoVisc OrthoVisc 2021-0 8- 00:00: 00 No 15mg [facility] OrthoVisc OrthoVisc 2021-0 8-23 00:00: 00 No 15mg [facility] OrthoVisc OrthoVisc 2021-0 8-23 00:00: 00 No 15mg [facility] OrthoVisc OrthoVisc 2-0 8-23 00:00: 00 No 15mg [facility] OrthoVisc OrthoVisc 2-0 8-23 00:00: 00 No 15mg [facility] OrthoVisc OrthoVisc 2-0 8-23 00:00: 00 No 15mg [facility] OrthoVisc OrthoVisc 2-0 8-23 00:00: 00 No 15mg [facility] OrthoVisc OrthoVisc 2-0 8-23 00:00: 00 No 15mg [facility] OrthoVisc OrthoVisc 2-0 8-23 00:00: 00 No 15mg [facility] OrthoVisc OrthoVisc 2-0 8-17 00:00: 00 No 15mg [facility] OrthoVisc OrthoVisc 2022-0 8-17 00:00: 00 No 15mg [facility] OrthoVisc OrthoVisc 2021-0 8-17 00:00: 00 No 15mg [facility] OrthoVisc OrthoVisc 2021-0 8-17 00:00: 00 No 15mg [facility] OrthoVisc OrthoVisc 2021-0 8-17 00:00: 00 No 15mg [facility] OrthoVisc OrthoVisc 2021-0 8-17 00:00: 00 No 15mg [facility] OrthoVisc OrthoVisc 2021-0 8-17 00:00: 00 No 15mg [facility] OrthoVisc OrthoVisc 2021-0 8-17 00:00: 00 No 15mg [facility] OrthoVisc OrthoVisc 2021-0 8-17 00:00: 00 No 15mg [facility] OrthoVisc OrthoVisc 2021-0 8-17 00:00: 00 No 15mg [facility] OrthoVisc OrthoVisc 0 8-17 00:00: 00 No 15mg [facility] Duloxetine HCl [address] Particles - 00:00: 00 Yes 120mg Take 120 mg by mouth daily Ktaeryna munroe Eszopiclone 2 MG oral Tablet 04-11 00:00: 00 02-25 00:00 :00 No TAKE 1 TABLET BY MOUTH ONCE DAILY IMMEDIATEL Y BEFORE BEDTIME NEEDED Kateryna munroe Flomax 0.4 MG Flomax 0.4 MG - 00:00: 00 06-29 00:00 :00 No 1{capsu le} QD Flomax 0.4 MG Bupivicaine [place] Bupivicaine Monte[place]ello - 00:00: 00 No 2.5mg [facility] Kenalog (Triamcinol one) Kenalog (Triamcinol one) - 00:00: 00 No 40mg [facility] Bupivicaine [place] Bupivicaine [place] 2021-0 - 00:00: 00 No 2.5mg [facility] Kenalog (Triamcinol one) Kenalog (Triamcinol one) 0 - 00:00: 00 No 40mg [facility] Bupivicaine [place] Bupivicaine [place] 2021-0 02-26 00:00: 00 No 2.5mg [facility] Kenalog (Triamcinol one) Kenalog (Triamcinol one) 0 - 00:00: 00 No 40mg [facility] Bupivicaine [place] Bupivicaine [place] 0 02-26 00:00: 00 No 2.5mg [facility] Kenalog (Triamcinol one) Kenalog (Triamcinol one) 0 02-26 00:00: 00 No 40mg [facility] Bupivicaine [place] Bupivicaine [place] 2021-0 02-26 00:00: 00 No 2.5mg [facility] Kenalog (Triamcinol one) Kenalog (Triamcinol one) 0 02-26 00:00: 00 No 40mg [facility] Bupivicaine [place] Bupivicaine [place] 2021-0 02-26 00:00: 00 No 2.5mg [facility] Kenalog (Triamcinol one) Kenalog (Triamcinol one) 0 02-26 00:00: 00 No 40mg [facility] Bupivicaine [place] Bupivicaine [place] 2021-0 - 00:00: 00 No 2.5mg [facility] Kenalog (Triamcinol one) Kenalog (Triamcinol one) 0 4-19 00:00: 00 No 40mg [facility] Bupivicaine [place] Bupivicaine [place] 2021-0 02-26 00:00: 00 No 2.5mg [facility] Kenalog (Triamcinol one) Kenalog (Triamcinol one) 02-26 00:00: 00 No 40mg [facility] Bupivicaine [place] Bupivicaine [place] 02-26 00:00: 00 No 2.5mg [facility] Kenalog (Triamcinol one) Kenalog (Triamcinol one) 02-26 00:00: 00 No 40mg [facility] Bupivicaine [place] Bupivicaine [place] 0 02-26 00:00: 00 No 2.5mg [facility] Kenalog (Triamcinol one) Kenalog (Triamcinol one) 0 02-26 00:00: 00 No 40mg [facility] Bupivicaine [place] Bupivicaine [place] 02-26 00:00: 00 No 2.5mg [facility] Kenalog (Triamcinol one) Kenalog (Triamcinol one) 02-26 00:00: 00 No 40mg [facility] Alprazolam 0.5 MG oral Tablet 02-11 00:00: 00 01-26 00:00 :00 No .5mg QD Take 1 tablet (0.5 mg total) by mouth daily as needed. Kateryna munroe Atorvastati n Calcium 40 MG Atorvastati n Calcium 40 MG - 00:00: 00 No 1{table t} QD Atorvastat in Calcium 40 MG Atorvastati n Calcium 40 MG Atorvastati n Calcium 40 MG 2021-0 3- 00:00: 00 No 1{table t} QD Atorvastat in Calcium 40 MG Atorvastati n Calcium 40 MG Atorvastati n Calcium 40 MG 2021-0 3-23 00:00: 00 No 1{table t} QD Atorvastat [...] 11-29 00:00: 00 11-27 00:00 :00 No [id number] 100mg Take 1 capsule (100 mg total) by mouth 2 times daily Kateryna Gauthier - Externa l Aspirin (Aspir-Low) 81 MG oral Tablet Delayed [...] MCG/ACT IN AERS 11-26 00:00: 00 Yes [id number] 2{puff} Q.25D Inhale 2 puffs into the [...] munroe Lidocaine 5 % apply externally Ointment -02 00:00: 00 11-27 00:00 :00 No APPLY [...] 750 mg tablet 1-03 00:00: 00 Yes [id number] 750mg Take 1 tablet by mouth 4 (four) times daily as needed for Pain (scale 7-10). [facility] methylPREDN ISolone (MEDROL, FEDERICO,) 4 mg tablets 8-19 00:00: 00 Yes [id number] Take by mouth SEE-INSTRU CTIONS. follow package directions [facility] naproxen 500 mg EC tablet 06-28 00:00: 00 Yes [id number] 500mg Take 1 tablet by mouth 2 (two) times daily with meals. [facility] methocarbam oL (ROBAXIN) 500 mg tablet 06-28 00:00: 00 Yes [id number] 500mg Take 1 tablet by mouth 3 (three) times daily as needed for Pain (scale 7-10). [facility] naproxen (NAPROSYN) 500 mg tablet 06-15 00:00: 00 Yes 500mg Take 1 tablet by mouth 2 (two) times daily with meals. [facility] methylPREDN ISolone (MEDROL, FEDERICO,) 4 mg tablets 06-15 00:00: 00 Yes Take by mouth SEE-INSTRU CTIONS. follow package directions [facility] ciprofloxac in HCl 500 mg tablet 06-01 00:00: 00 Yes 500mg Take 1 tablet by mouth 2 (two) times daily. [facility] traZODone HCl 50 MG traZODone HCl [...] Vaccine, Quad, Egg Free 2022-09-04 00:00:00 Gaudencio Jasso External Influenza Virus Vaccine, Quad, Egg Free 2022-09-04 00:00:00 Gaudencio Jasso External Influenza Virus Vaccine, Quad, Egg Free [...] (Spikevax), Mrna-lnp, Tito Protein, 2021-10-19 00:00:00 [facility] Vaccine Moderna (Spikevax), Mrna-lnp, [...] Vaccine Moderna COVID-19 Vaccine 2021-03-09 11:49:00 Completed [facility] Covid-19 Vaccine Moderna (Spikevax), Mrna-lnp, Tito Protein, [...] Mrna-lnp, Tito Protein, Pf 2021-03-07 00:00:00 [facility] Vaccine Moderna (Spikevax), Mrna-lnp, Tito Protein, Pf 2021-03-07 00:00:00 [facility] Moderna COVID-19 Vaccine Moderna COVID-19 Vaccine 2021-02-07 11:48:00 Completed [facility] Covid-19 Vaccine Moderna (Spikevax), Mrna-lnp, Tito Protein, Pf 2021-02-07 00:00:00 [facility] Cov[facility] Vaccine Moderna (Spikevax), Mrna-lnp, Tito Protein, Pf 2021-02-07 00:00:00 Completed Kateryna Seybold - External Covid-19 Vaccine Moderna (Spikevax), Mrna-lnp, Tito Protein, Pf 2021-02-07 00:00:00 Completed Kateryna Seybold - External Covid-19 Vaccine Moderna (Spikevax), Mrna-lnp, Tito Protein, Pf 2021-02-07 00:00:00 Completed [facility] Seybold - External Covid-19 Vaccine Moderna (Spikevax), Mrna-lnp, Tito Protein, Pf 2021-02-07 00:00:00 Completed Kateryna Jenkinsybold - External Covid-19 Vaccine (Moderna), Mrna-lnp, Tito [...] - External Afluria Afluria 2021-01-08 11:48:00 Completed [facility] Influenza, Seasonal, Injectable, Preservative Free 2021-01-08 00:00:00 Completed Kateryna Jenkinsybold - External Influenza, Seasonal, Injectable, Preservative Free [...] Influenza, Seasonal, Injectable, Preservative Free Unknown Completed Katernya Jenkinsy bold - External Influenza Virus Vaccine, Quad, [...] COVID-19 Vaccine Moderna COVID-19 Vaccine Unknown Completed [facility] Afluria Afluria Unknown Completed [facility] Moderna COVID-19 Vaccine Moderna COVID-19 Vaccine Unknown Completed [facility] Afluria Afluria Unknown Completed [facility] Moderna COVID-19 Vaccine Moderna COVID-19 Vaccine Unknown Completed [facility] Afluria Afluria Unknown Completed [facility] rit [facility] Moderna COVID-19 Vaccine Moderna COVID-19 Vaccine Unknown Completed [facility] Afluria Afluria Unknown Completed [facility] Moderna COVID-19 Vaccine Moderna COVID-19 Vaccine Unknown Completed [facility] Afluria Afluria Unknown Completed [facility] Moderna COVID-19 Vaccine Moderna COVID-19 Vaccine Unknown Completed [facility] Afluria Afluria Unknown Completed [facility] Moderna COVID-19 Vaccine Moderna COVID-19 Vaccine Unknown Completed [facility] Afluria Afluria Unknown [facility] Moderna COVID-19 Vaccine Moderna COVID-19 Vaccine Unknown Completed [facility] Afluria Afluria Unknown Completed [facility] Moderna COVID-19 Vaccine Moderna COVID-19 Vaccine Unknown Completed [facility] Afluria Afluria Unknown Completed [facility] Moderna COVID-19 Vaccine Moderna COVID-19 Vaccine Unknown Completed [facility] Afluria Afluria Unknown Completed [facility] Vital Signs Vital Name Observation Time Observation Value Comments S ource Systolic blood pressure 2024-09-10 20:50:00 104 mm[Hg] Kateryna horn - External Diastolic blood pressure 2024-09-10 20:50:00 64 mm[Hg] Kateryna horn - External Heart rate 2024-09-10 20:50:00 69 /min Allison Gauthier - External Body temperature 2024-09-10 20:50:00 36.94 Leslie Kateryna Gauthier - External Respiratory rate 2024-09-10 20:50:00 16 /min Kateryna Gauthier - External Body height 2024-09-10 20:50:00 162.6 cm Keisha Gauthier - External Body weight 2024-09-10 20:50:00 91.173 kg Keisha Gauthier - External BMI 2024-09-10 20:50:00 34.50 kg/m2 Keisha Gauthier - External Oxygen saturation in Arterial blood by Pulse oximetry 2024-09-10 20:50:00 100 /min Kateryna horn - External Systolic blood pressure 2024-07-30 19:50:00 116 mm[Hg] Kateryna Jenkinsybo ld - External Diastolic blood pressure 2024-07-30 19:50:00 78 mm[Hg] Kateryna Jenkinsybo ld - External Heart rate 2024-07-30 19:50:00 71 /min Allison y ybold - External Body temperature 2024-07-30 19:50:00 36.61 Leslie Kateryna Jenkinsybold - External Respiratory rate 2024-07-30 19:50:00 16 /min Kateryna Seybold - External Body height 2024-07-30 19:50:00 162.6 cm Keisha cai Seybold - External Body weight 2024-07-30 19:50:00 98.884 kg Keisha cai Seybold - External BMI 2024-07-30 19:50:00 37.42 kg/m2 Keisha cai Seybold - External Oxygen saturation in Arterial blood by Pulse oximetry 2024-07-30 19:50:00 96 /min Kateryna Rojoo ld - External Systolic blood pressure 2024-07-08 01:07:00 129 mm[Hg] [facility] Diastolic blood pressure 2024-07-08 01:07:00 74 mm[Hg] [facility] Heart rate 2024-07-08 01:07:00 73 /min [facility] Body temperature 2024-07-08 01:07:00 37.39 Leslie [facility] Respiratory rate 2024-07-08 01:07:00 15 /min [facility] Oxygen saturation in Arterial blood by Pulse oximetry 2024-07-08 01:07:00 98 /min [facility] Body height 2024-07-07 22:36:00 162.6 cm [facility] Body weight 2024-07-07 22:36:00 102.513 kg [facility] BMI 2024-07-07 22:36:00 38.79 kg/m2 [facility] Systolic blood pressure 2024-06-10 21:13:00 110 mm[Hg] Kateryna Seybo ld - External Diastolic blood pressure 2024-06-10 21:13:00 70 mm[Hg] Kateryna Seybo ld - External Heart rate 2024-06-10 21:13:00 [...] Pulse oximetry 2024-06-10 21:13:00 96 /min Kateryna Seybo ld - External Body weight 2024-02-04 13:44:00 103.42 kg Keisha ey Seybold - External BMI 2024-02-04 13:44:00 39.14 kg/m2 Keisha ey Seybold - External Systolic blood pressure 2024-01-21 14:55:00 118 mm[Hg] Kateryna Seybo ld - External Diastolic blood pressure 2024-01-21 14:55:00 74 mm[Hg] Kateryna Seybo ld - External Heart rate 2024-01-21 14:55:00 59 /min Kelse y Seybold - External Body temperature 2024-01-21 14:55:00 36.5 Leslie Kateryna Seybold - External Respiratory rate 2024-01-21 14:55:00 15 /min Kateryna Seybold - External Body height 2024-01-21 14:55:00 162.6 cm Keisha ey Seybold - External Body weight 2024-01-21 14:55:00 102.967 kg Keisha ey Seybold - External BMI 2024-01-21 14:55:00 38.96 kg/m2 Keisha ey Seybold - External Oxygen saturation in Arterial blood by Pulse oximetry 2024-01-21 14:55:00 100 /min Kateryna Jenkinsybo ld - External height 2024-01-06 09:45:00 64.00 [in_i] [facility] weight 2024-01-06 09:45:00 220 [lb_av] Comm on [facility] temperature 2024-01-06 09:45:00 97.7 [degF] Com mon [facility] bmi 2024-01-06 09:45:00 37.76 kg/m2 Comm on [facility] blood pressure systolic 2024-01-06 09:45:00 120 mm[Hg] [facility] blood pressure diastolic 2024-01-06 09:45:00 82 mm[Hg] [facility] Systolic blood pressure 2023-10-07 20:20:00 120 mm[Hg] Kateryna Seybo ld - External Diastolic blood pressure 2023-10-07 20:20:00 77 mm[Hg] Kateryna Jenkinsybo ld - External Heart rate 2023-10-07 20:20:00 65 /min Kelse y Seybold - External Body temperature 2023-10-07 20:20:00 36.44 Leslie Kateryna Seybold - External Respiratory rate 2023-10-07 20:20:00 20 /min Kateryna Jenkinsybold - External Body height 2023-10-07 20:20:00 162.6 cm Keisha cai Seybold - External Body weight 2023-10-07 20:20:00 105.235 kg Keisha ey Seybold - External BMI 2023-10-07 20:20:00 39.82 kg/m2 Keisha cai Seybold - External Oxygen saturation in Arterial blood by Pulse oximetry 2023-10-07 20:20:00 99 /min Kateryna Seybo ld - External Systolic blood pressure 2023-07-24 13:36:00 115 mm[Hg] Kateryna Jenkinsybo ld - External Diastolic blood pressure 2023-07-24 [...] External Heart rate 2023-07-01 19:18:00 64 /min Allison y Seybold - External Body temperature 2023-07-01 [...] External height 2023-05-20 13:30:00 64.00 [in_i] [facility] [place] weight 2023-05-20 13:30:00 220 [lb_av] Comm on [facility] temperature 2023-05-20 13:30:00 98.9 [degF] [facility] bmi 2023-05-20 13:30:00 37.76 kg/m2 Comm on [facility] blood pressure systolic 2023-05-20 13:30:00 116 mm[Hg] [facility] blood pressure diastolic 2023-05-20 13:30:00 74 mm[Hg] [facility] Body height 2023-03-07 16:34:00 162.6 cm Keisha ey Seybold - External Body weight 2023-03-07 16:34:00 101.606 kg Keisha ey Seybold - External BMI 2023-03-07 16:34:00 38.45 kg/m2 Keisha ey Seybold - External Systolic blood pressure 2023-02-25 18:28:00 113 mm[Hg] Kateryna Seybo ld - External Diastolic blood pressure 2023-02-25 18:28:00 77 mm[Hg] Kateryna Seybo ld - External Heart rate 2023-02-25 18:28:00 64 /min Allison y Seybold - External Body temperature 2023-02-25 [...] VW 2024-07-07 23:17:40 Lucius Barriga am A [facility] PELVIS 2022-12-19 16:47:51 Gus Neri S eybold - External Encounters Start Date/Time End Date/Time Encounter Type Admission Type Attending Clinicians Care Facility Care Department Encounter ID Source 2024-02-09 07:38:00 Outpatient Darius Gallo [facility] [id number] [facility] 2023-12-19 10:16:00 Outpatient Darius Gallo [facility] [id number] [facility] 2023-03-24 15:49:01 Outpatient Darius Gallo [facility] [id number] [facility] 2023-03-11 09:16:01 Outpatient Darius Gallo [facility] [id number] [facility] 2022-08-15 09:14:03 Outpatient Darius Gallo [facility] [id number] [facility] 2022-06-18 08:34:02 Outpatient Darius Gallo [facility] [id number] [facility] 2022-03-12 16:48:01 Outpatient Wing, Avnee [facility] [id number] [facility] 2022-02-27 09:15:02 Outpatient Wing, Avnee [facility] [id number] [facility] 2022-02-26 13:41:03 Outpatient Wing, Avnee [facility] [id number] [facility] 2022-02-12 14:26:01 Outpatient Wing, Avnee [facility] [id number] [facility] 2022-02-08 14:54:01 Outpatient Wing, Avnee [facility] [id number] [facility] 2022-01-30 07:54:01 Outpatient Wing, Avnee [facility] [id number] [facility] 2022-01-28 10:38:01 Outpatient Wing, Avnee [facility] [id number] [facility] 2022-01-21 15:25:01 Outpatient Wing, Avnee [facility] [id number] [facility] 2022-01-15 09:32:04 Outpatient Wing, Avnee [facility] [id number] [facility] 2022-01-14 10:53:02 Outpatient WingBrittanie [facility] [id number] [facility] 2022-01-11 15:37:01 Outpatient [facility]ittanie [facility] [id number] [facility] 2021-12-05 14:28:58 Out[facility]ittanie [facility] [id number] [facility] 2021-12-05 14:24:55 Out[facility]ittanie [facility] [id number] [facility] 2021-12-05 14:21:24 Out[facility]ittanie [facility] [id number] [facility] 2024-12-17 15:30:00 2024-12-17 15:30:00 Outpatient PREZAGEORGINA Birch KATERYNA MITCHELL [id number] [facility] 2024-09-22 15:50:00 2024-09-22 15:50:00 Outpatient LAB90 KATERYNA MITCHELL [id number] [facility] 2024-09-22 00:00:00 2024-09-22 00:00:00 Outpatient PREZAGEORGINA Birch KATERYNA MITCHELL [id number] [facility] 2024-09-22 00:00:00 2024-09-22 00:00:00 Outpatient PREZAGEORGINA Birch KATERYNA MITCHELL [id number] [facility] 2024-09-13 00:00:00 2024-09-13 00:00:00 Outpatient JORDINZAQueta GEORGINA MITCHELL [id number] [facility] 2024-09-10 16:30:00 2024-09-10 16:30:00 Outpatient LAB90 KATERYNA MITCHELL [id number] [facility] 2024-09-10 16:15:00 2024-09-10 16:15:00 Outpatient EVANGELISTQueta GEORGINA MITCHELL [id number] Kateryna Gauthier 2024-09-10 00:00:00 2024-09-10 00:00:00 Outpatient KATERYNA MITCHELL [id number] Kateryna Gauthier 2024-09-03 09:30:00 2024-09-03 09:30:00 Outpatient LAB90 KATERYNA MITCHELL [id number] Kateryna Gauthier 2024-08-26 00:00:00 2024-08-26 00:00:00 Outpatient KATERYNA MITCHELL [id number] Kateryna Gauthier 2024-08-18 00:00:00 2024-08-18 00:00:00 Outpatient GEORGINA FOSTER KATERYNA [id number] Kateryna Gauthier 2024-08-13 00:00:00 2024-08-13 00:00:00 Outpatient TANIA RUFF KATERYNA [id number] Kateryna Gauthier 2024-08-13 00:00:00 2024-08-13 00:00:00 Outpatient GEORGINA FOSTER KATERYNA [id number] Kateryna Gauthier 2024-07-30 15:00:00 2024-07-30 15:00:00 Outpatient TANIA RUFF [id number] Kateryna Gauthier 2024-07-29 00:00:00 2024-07-29 00:00:00 Outpatient KATERYNA MITCHELL [id number] Kateryna Gauthier 2024-07-29 00:00:00 2024-07-29 00:00:00 Outpatient TANIA RUFF KATERYNA [id number] [facility] 2024-07-07 17:43:00 2024-07-07 20:32:00 Emergency X NITHYA, LUC NITHYA, LUC UTHANNA ERT [id number] [facility] 2024-07-07 17:43:00 2024-07-07 20:32:00 Emergency Behzadi, Luc A [facility] [id number] [facility] 2024-07-03 00:00:00 2024-07-03 00:00:00 Outpatient KATERYNA KATERYNA [id number] Kateryna Seybdayanna 2024-06-14 00:00:00 2024-06-14 00:00:00 Outpatient JORDINZAGEORGINA Birch KATERYNA [id number] Kateryna Seybdayanna 2024-06-10 16:40:00 2024-06-10 16:40:00 Outpatient LAB90 KATERYNA MITCHELL [id number] Kateryna Seybdayanna 2024-06-10 16:15:00 2024-06-10 16:15:00 Outpatient PREZAGEORGINA Birch KATERYNA [id number] [facility] 2024-06-04 00:00:00 2024-06-04 00:00:00 Outpatient DAVID KAPLAN KATERYNA MITCHELL [id number] [facility] 2024-06-02 00:00:00 2024-06-02 00:00:00 Outpatient KATERYNA MITCHELL [id number] [facility] 2024-05-24 00:00:00 2024-05-24 00:00:00 Outpatient GEORGINA FOSTER KATERYNA MITCHELL [id number] [facility] 2024-05-05 00:00:00 2024-05-05 00:00:00 Outpatient KATERYNA MITCHELL [id number] [facility] 2024-04-30 11:00:00 2024-04-30 11:00:00 Outpatient PREZAGEORGINA Birch KATERYNA MITCHELL [id number] Kateryna Seybold 2024-04-22 09:30:00 2024-04-22 09:30:00 Outpatient PREGEORGINA LAUGHLIN KATERYNA KATERYNA [id number] Kateryna Seybold 2024-04-06 00:00:00 2024-04-06 00:00:00 Outpatient KATERYNA MITCHELL [id number] Kateryna Seybold 2024-03-24 08:30:00 2024-03-24 08:30:00 Outpatient BROWNASUNCION NICHOLAS KATERYNA MITCHELL [id number] Kateryna Seybold 2024-03-21 00:00:00 2024-03-21 00:00:00 Outpatient GEORGINA FOSTER KATERYNA MITCHELL [id number] Kateryna Sey[facility] 2024-03-19 00:00:00 2024-03-19 00:00:00 Outpatient KARENA PERES KATERYNA MITCHELL [id number] Kateryna Seybold 2024-03-12 00:00:00 2024-03-12 00:00:00 Outpatient DAVID KAPLAN KATERYNA MITCHELL [id number] Kateryna Seybold 2024-03-10 00:00:00 2024-03-10 00:00:00 Outpatient KATERYNA MITCHELL [id number] Kateryna Seybold 2024-03-09 08:15:00 2024-03-09 08:15:00 Outpatient KATERYNA MITCHELL [id number] Kateryna Seybold 2024-03-09 00:00:00 2024-03-09 00:00:00 Outpatient KATERYNA MITCHELL [id number] [facility] 2024-02-20 00:00:00 2024-02-20 00:00:00 Outpatient JAKARENA SKY KATERYNA MITCHELL [id number] [facility] 2024-02-18 00:00:00 2024-02-18 00:00:00 Outpatient GEORGINA FOSTER KATERYNA MITCHELL [id number] Kateryna Seybold 2024-02-17 00:00:00 2024-02-17 00:00:00 Outpatient KATERYNA MITCHELL [id number] Kateryna Seybold 2024-02-17 00:00:00 2024-02-17 00:00:00 Outpatient JORDINLISSETTEGEORGINA Birch KATERYNA MITCHELL [id number] Kateryna Seybold 2024-02-17 00:00:00 2024-02-17 00:00:00 Outpatient GEORGINA FOSTER KATERYNA MITCHELL [id number] Kateryna Seybold 2024-02-04 08:20:00 2024-02-04 08:20:00 Outpatient KATERYNA MITCHELL [id number] Kateryna Seybold 2024-02-04 08:00:00 2024-02-04 08:00:00 Outpatient KARENA PERES [id number] Kateryna [facility] 2024-02-04 00:00:00 2024-02-04 00:00:00 Outpatient KARENA PERES KATERYNA [id number] Kateryna Jenkinsybdayanna 2024-02-04 00:00:00 2024-02-04 00:00:00 Outpatient KATERYNA MITCHELL [id number] Kateryna ybdayanna 2024-02-02 00:00:00 2024-02-02 00:00:00 Outpatient GEORGINA FOSTER KATERYNA MITCHELL [id number] Kateryna Jenkinsybdayanna 2024-02-02 00:00:00 2024-02-02 00:00:00 Outpatient GEORGINA FOSTER KATERYNA MITCHELL [id number] Kateryna Jenkinsybdayanna 2024-01-27 08:45:00 2024-01-27 08:45:00 Outpatient DAVID KAPLAN KATERYNA MITCHELL [id number] Kateryna dayanna 2024-01-22 00:00:00 2024-01-22 00:00:00 Outpatient KATERYNA MITCHELL [id number] [facility] 2024-01-22 00:00:00 2024-01-22 00:00:00 Outpatient GEORGINA FOSTER KATERYNA MITCHELL [id number] Kateryna Jenkinsdayanna 2024-01-21 10:00:00 2024-01-21 10:00:00 Outpatient GEORGINA FOSTER KATERYNA MITCHELL [id number] Kateryna dayanna 2024-01-19 08:40:00 2024-01-19 08:40:00 Outpatient LABUsha KATERYNA MITCHELL [id number] [facility] 2024-01-16 00:00:00 2024-01-16 00:00:00 Outpatient GEORGINA FOSTER KATERYNA MITCHELL [id number] [facility] 2024-01-14 16:00:00 2024-01-14 16:00:00 Outpatient DARIUSZ SANTANA KATERYNA MITCHELL [id number] [facility] 2024-01-13 00:00:00 2024-01-13 00:00:00 Outpatient KATERYNA MITCHELL [id number] [facility] 2024-01-06 00:00:00 2024-01-06 00:00:00 (F/U) [id number] 2023-12-30 10:00:00 2023-12-30 10:00:00 Outpatient CELESTE PADRON KATERYNA MITCHELL [id number] Kateryna Seybold 2023-12-17 00:00:00 2023-12-17 00:00:00 Outpatient KATERYNA MITCHELL [id number] Kateryna Seybold 2023-12-17 00:00:00 2023-12-17 00:00:00 Outpatient GEORGINA FOSTER KATERYNA [id number] [facility] 2023-12-16 11:15:00 2023-12-16 11:15:00 Outpatient ZEYADLINH MEAZ KATERYNA MITCHELL [id number] Kateryna [facility] 2023-12-16 10:15:00 2023-12-16 10:15:00 Outpatient YOEL Peña KATERYNA MITCHELL [id number] [facility] 2023-12-08 10:20:00 2023-12-08 10:20:00 Outpatient WENDY DOUGHERTYSHANA KATERYNA MITCHELL [id number] [facility] 2023-12-05 11:30:00 2023-12-05 11:30:00 Outpatient LINH JEFFERS [facility]ATERYNA MITCHELL [id number] [facility]23-11-21 00:00:00 2023-11-21 00:00:00 Outpatient GEORGINA FOSTER KATERYNA MITCHELL [id number] [facility] 2023-11-14 12:59:12 2023-11-14 12:59:12 Outpatient [facility] [id number] Dave Ibanez 2023-11-05 11:00:00 2023-11-05 11:00:00 Outpatient KATERYNA MITCHELL [id number] Kateryna [facility] 2023-11-05 10:00:00 2023-11-05 10:00:00 Outpatient KATERYNA MITCHELL [id number] Kateryna [facility] 2023-11-05 09:30:00 2023-11-05 09:30:00 Outpatient KATERYNA MITCHELL [id number] Kateryna [facility] 2023-11-05 08:30:00 2023-11-05 08:30:00 Outpatient KATERYNA MITCHELL [id number] [facility] 2023-11-05 00:00:00 2023-11-05 00:00:00 Outpatient ZEYAD BARBRAANNALISE MITCHELL [id number] Kateryna [facility] 2023-10-31 00:00:00 2023-10-31 00:00:00 Outpatient DARIUS GALLO [id number] Kateryna [facility] 2023-10-30 00:00:00 2023-10-30 00:00:00 Outpatient DARIUS GALLO [id number] [facility] 2023-10-15 14:30:00 2023-10-15 14:30:00 Outpatient HERON HERNANDEZ [id number] Kateryna [facility] 2023-10-08 00:00:00 2023-10-08 00:00:00 Outpatient PREGEORGINA LAUGHLIN [id number] [facility] 2023-10-07 15:15:00 2023-10-07 15:15:00 Outpatient KB MITCHELL [id number] [facility] 2023-10-07 14:45:00 2023-10-07 14:45:00 Outpatient PREZAS GEORGINA MITCHELL [id number] [facility] 2023-10-07 00:00:00 2023-10-07 00:00:00 (TEL) [facility] [id number] [facility] 2023-09-26 00:00:00 2023-09-26 00:00:00 Outpatient DARIUS GALLO [id number] Kateryna [facility] 2023-09-24 10:15:00 2023-09-24 10:15:00 Outpatient PREZASGEORGINA [id number] Kateryna Sey[facility] 2023-09-04 00:00:00 2023-09-04 00:00:00 Outpatient DARIUS GALLO [id number] Kateryna [facility] 2023-09-03 09:45:00 2023-09-03 09:45:00 Outpatient LINH JEFFERS [id number] [facility] 2023-08-28 00:00:00 2023-08-28 00:00:00 (TEL) [facility] [id number] [facility] 2023-08-25 00:00:00 2023-08-25 00:00:00 Outpatient GUS NERI KATERYNA MITCHELL [id number] [facility] 2023-08-25 00:00:00 2023-08-25 00:00:00 Outpatient SABINO DARIUS KATERYNA MITCHELL [id number] [facility] 2023-08-19 10:30:00 2023-08-19 10:30:00 Outpatient KATERYNA MITCHELL [id number] [facility] 2023-08-19 09:30:00 2023-08-19 09:30:00 Outpatient KATERYNA MITCHELL [id number] [facility] 2023-08-19 09:00:00 2023-08-19 09:00:00 Outpatient KATERYNA MITCHELL [id number] [facility] 2023-08-19 08:00:00 2023-08-19 08:00:00 Outpatient KATERYNA MITCHELL [id number] [facility] 2023-08-07 11:00:00 2023-08-07 11:00:00 Outpatient ZEYAD LINH MITCHELL [id number] [facility] 2023-08-01 15:00:00 2023-08-01 15:00:00 Outpatient ARABELLA JUNE [id number] [facility] 2023-08-01 15:00:00 2023-08-01 15:00:00 Outpatient ARABELLA JUNE [id number] [facility] 2023-08-01 12:30:00 2023-08-01 12:30:00 Outpatient KATERYNA MITCHELL [id number] [facility] 2023-07-30 00:00:00 2023-07-30 00:00:00 Outpatient GEORGINA FOSTER [id number] [facility] 2023-07-24 15:00:00 2023-07-24 15:00:00 Outpatient ABHAY ASTORGA [id number] [facility] 2023-07-24 09:45:00 2023-07-24 09:45:00 Outpatient LAB45 KATERYNA MITCHELL [id number] [facility] 2023-07-24 08:30:00 2023-07-24 08:30:00 Outpatient DARIUSZ SANTANA KATERYNA MITCHELL [id number] [facility] 2023-07-23 11:23:53 2023-07-23 11:23:53 Outpatient SFA SFA [id number] Dave Ibanez 2023-07-17 00:00:00 2023-07-17 00:00:00 Outpatient DARIUS GALLO [id number] [facility] 2023-07-12 00:00:00 2023-07-12 00:00:00 Outpatient DARIUS GALLO [id number] [facility] 2023-07-10 13:15:00 2023-07-10 13:15:00 Outpatient LINH JEFFERS KATERYNA MITCHELL [id number] [facility] 2023-07-10 13:00:00 2023-07-10 13:00:00 Outpatient 39, YOEL KATERYNA MITCHELL [id number] [facility] 2023-07-09 11:37:42 2023-07-09 11:37:42 Outpatient SFA SFA [id number] Dave Goff Shamar 2023-07-03 00:00:00 2023-07-03 00:00:00 Outpatient GEORGINA FOSTER [id number] [facility] 2023-07-03 00:00:00 2023-07-03 00:00:00 Outpatient MD KATERYNA RASHID [id number] [facility] 2023-07-02 00:00:00 2023-07-02 00:00:00 Outpatient GEORGINA FOSTER [id number] [facility] 2023-07-01 14:45:00 2023-07-01 14:45:00 Outpatient LAB90 KATERYNA MITCHELL [id number] [facility] 2023-07-01 14:15:00 2023-07-01 14:15:00 Outpatient GEORGINA FOSTER KATERYNA MITCHELL [id number] [facility] 2023-07-01 00:00:00 2023-07-01 00:00:00 Outpatient DARIUS GALLO [id number] [facility] 2023-06-27 13:45:00 2023-06-27 13:45:00 Outpatient GEORGINA FOSTER KATERYNA MITCHELL [id number] [facility] 2023-06-26 09:07:56 2023-06-26 09:07:56 Outpatient SFA SFA [id number] Dave Ibanez 2023-06-24 08:21:08 2023-06-24 08:21:08 Outpatient SFA SFA [id number] Dave Ibanez 2023-06-23 00:00:00 2023-06-23 00:00:00 Outpatient KATERYNA MITCHELL [id number] [facility] 2023-06-23 00:00:00 2023-06-23 00:00:00 Outpatient GEORGINA FOSTER KATERYNA MITCHELL [id number] [facility] 2023-[facility]-23 00:00:00 2023-06-23 00:00:00 Outpatient KATERYNA MITCHELL [id number] [facility] 2023-06-23 00:00:00 2023-06-23 00:00:00 (TEL) [facility] [id number] 2023-06-12 13:39:43 2023-06-12 13:39:43 Outpatient SFA SFA [id number] Dave Ibanez 2023-06-10 08:22:41 2023-06-10 08:22:41 Outpatient SFA SFA [id number] Dave Ibanez 2023-05-28 00:00:00 2023-05-28 00:00:00 Outpatient JUSTINEPAULMEENA MITCHELL [id number] [facility] 2023-05-28 00:00:00 2023-05-28 00:00:00 Outpatient DARIUS GALLO [id number] [facility] 2023-05-27 11:07:00 2023-05-27 11:07:00 Outpatient SFA SFA [id number] Dave Ibanez 2023-05-26 00:00:00 2023-05-26 00:00:00 Outpatient PREZAGEORGINA Birch KATERYNA MITCHELL [id number] [facility] 2023-05-22 10:41:13 2023-05-22 10:41:13 Outpatient SFA SFA [id number] Dave Ibanez 2023-05-21 00:00:00 2023-05-21 00:00:00 Outpatient PREZAS, GEORGINAERNIE MITCHELL [id number] [facility] 2023-05-21 00:00:00 2023-05-21 00:00:00 Outpatient PREZAQueta, GEORGINA KATERYNA MITCHELL [id number] [facility] dayanna 2023-05-20 00:00:00 2023-05-20 00:00:00 Outpatient PREZAGEORGINA Birch KATERYNA MITCHELL [id number] [facility] 2023-05-20 00:00:00 2023-05-20 00:00:00 OFFICE VISIT ESTAB PT LEVEL 4 STLMLC STLMLC [id number] [facility] 2023-05-20 00:00:00 2023-05-20 00:00:00 (TEL) STLMLC [facility]C [id number] [facility] 2023-05-01 00:00:00 2023-05-01 00:00:00 Outpatient PREZAQueta GEORGINA MITCHELL [id number] [facility] 2023-04-30 15:35:00 2023-04-30 15:35:00 Outpatient LABUsha KATERYNA MITCHELL [id number] [facility] 2023-04-30 14:30:00 2023-04-30 14:30:00 Outpatient ENRICO SIDDIQUI [id number] [facility] 2023-04-29 00:00:00 2023-04-29 00:00:00 Outpatient PREZASGEORGINA [id number] [facility] 2023-04-23 00:00:00 2023-04-23 00:00:00 (TEL) STLMLC STLMLC [id number] [facility] 2023-04-23 00:00:00 2023-04-23 00:00:00 (TEL) STLMLC STLMLC [id number] [facility] 2023-04-21 00:00:00 2023-04-21 00:00:00 Outpatient JUSTINE GUS MITCHELL [id number] [facility] 2023-04-16 10:45:00 2023-04-16 10:45:00 Outpatient NERI, GUS MITCHELL [id number] [facility] 2023-04-09 00:00:00 2023-04-09 00:00:00 Outpatient GUS NERI [id number] [facility] 2023-04-03 00:00:00 2023-04-03 00:00:00 Outpatient GEORGINA FOSTER [id number] [facility] 2023-04-01 00:00:00 2023-04-01 00:00:00 Outpatient KATERYNA MITCHELL [id number] [facility] 2023-04-01 00:00:00 2023-04-01 00:00:00 Outpatient DARIUS GALLO [id number] [facility] 2023-03-28 00:00:00 2023-03-28 00:00:00 Outpatient KATERYNA MITCHELL [id number] [facility] 2023-03-28 00:00:00 2023-03-28 00:00:00 Outpatient GEORGINA FOSTER [id number] [facility] 2023-03-26 11:30:00 2023-03-26 11:30:00 Outpatient ENRICO SIDDIQUI [id number] [facility] 2023-03-26 11:20:00 2023-03-26 11:20:00 Outpatient LABUsha MITCHELL [id number] [facility] 2023-03-26 00:00:00 2023-03-26 00:00:00 Outpatient GEORGINA FOSTERSEY [id number] [facility] 2023-03-24 00:00:00 2023-03-24 00:00:00 Outpatient PREZAS, GEORGINA KATERYNA MITCHELL [id number] [facility] 2023-03-24 00:00:00 2023-03-24 00:00:00 (TEL) STLC STLC [id number] [facility] 2023-03-12 00:00:00 2023-03-12 00:00:00 Outpatient PREZAS, GEORGINA KATERYNA MITCHELL [id number] [facility] 2023-03-07 13:15:00 2023-03-07 13:15:00 Outpatient NERIGUS KATERYNA MITCHELL [id number] [facility] 2023-03-07 00:00:00 2023-03-07 00:00:00 Outpatient NEO CARBAJAL KATERYNA MITCHELL [id number] [facility] 2023-03-03 00:00:00 2023-03-03 00:00:00 Outpatient PREZAS, GEORGINA KATERYNA MITCHELL [id number] [facility] 2023-03-03 00:00:00 2023-03-03 00:00:00 Outpatient PREZAS, GEORGINA KATERYNA MITCHELL [id number] [facility] 2023-03-03 00:00:00 2023-03-03 00:00:00 Outpatient PREZAS, GEORGINAERNIE MITCHELL [id number] [facility] 2023-02-26 00:00:00 2023-02-26 00:00:00 Outpatient PREZAS, GEORGINA KATERYNA MITCHELL [id number] [facility] 2023-02-26 00:00:00 2023-02-26 00:00:00 (TEL) [facility] STLC [id number] [facility] 2023-02-25 14:00:00 2023-02-25 14:00:00 Outpatient TETEUsha MITCEHLL [id number] [facility] 2023-02-25 13:30:00 2023-02-25 13:30:00 Outpatient PREZAS GEORGINA STEELESEY [id number] [facility] 2023-02-25 00:00:00 2023-02-25 00:00:00 Outpatient KATERYNA MITCHELL [id number] [facility] 2023-02-25 00:00:00 2023-02-25 00:00:00 Outpatient DARIUS GALLO [id number] [facility] 2023-01-24 00:00:00 2023-01-24 00:00:00 Outpatient DARREL CHOI [id number] [facility] 2023-01-21 00:00:00 2023-01-21 00:00:00 Outpatient MD KATERYNA RASHID [id number] [facility] 2023-01-20 07:30:00 2023-01-20 07:30:00 Outpatient KATERYNA MITCHELL [id number] [facility] 2023-01-15 15:30:00 2023-01-15 15:30:00 Outpatient GUS NERI [id number] [facility] 2023-01-13 11:15:00 2023-01-13 11:15:00 Outpatient KATERYNA MITCHELL [id number] [facility] 2023-01-13 00:00:00 2023-01-13 00:00:00 Outpatient KATERYNA MITCHELL [id number] [facility] 2023-01-13 00:00:00 2023-01-13 00:00:00 Outpatient KATERYNA MITCHELL [id number] [facility] 2023-01-10 00:00:00 2023-01-10 00:00:00 Outpatient DARIUS GALLO [id number] [facility] 2023-01-09 11:30:00 2023-01-09 11:30:00 Outpatient VELIA VAELNZUELA [id number] [facility] 2023-01-09 00:00:00 2023-01-09 00:00:00 Outpatient MD KATERYNA RASHID [id number] [facility] 2023-01-03 00:00:00 2023-01-03 00:00:00 Outpatient PREZAS, GEORGINA KATERYNA MITCHELL [id number] [facility] 2023-01-02 08:45:00 2023-01-02 08:45:00 Outpatient LABUsha KATERYNA MITCHELL [id number] [facility] 2023-01-02 00:00:00 2023-01-02 00:00:00 Outpatient PREZAS, GEORGINA KATERYNA MITCHELL [id number] [facility] G[facility] 2022-12-20 00:00:00 2022-12-20 00:00:00 Outpatient KATERYNA MITCHELL [id number] [facility] Disha 2022-12-19 14:00:00 2022-12-19 14:00:00 Outpatient PATBEV DARREL MITCHELL [id number] [facility] 2022-12-19 10:40:00 2022-12-19 10:40:00 Outpatient KATERYNA MITCHELL [id number] [facility] 2022-12-19 08:00:00 2022-12-19 08:00:00 Outpatient NERIGUS KATERYNA MITCHELL [id number] [facility] 2022-12-19 00:00:00 2022-12-19 00:00:00 Outpatient KATERYNA MITCHELL [id number] [facility] 2022-12-12 09:30:00 2022-12-12 09:30:00 Outpatient PATBEV DARREL MITCHELL [id number] [facility] 2022-12-09 00:00:00 2022-12-09 00:00:00 Outpatient PREZAS, GEORGINA KATERYNA MITCHELL [id number] [facility] 2022-12-05 00:00:00 2022-12-05 00:00:00 Outpatient PREZAS, GEORGINA MITCHELL [id number] [facility] 2022-11-27 13:30:00 2022-11-27 13:30:00 Outpatient PREZAS, GEORGINA MITCHELL [id number] [facility] y[facility] 2022-11-26 00:00:00 2022-11-26 00:00:00 Outpatient PREZAS, GEORGINA MITCHELL [id number] [facility] Gauthier 2022-11-19 10:40:00 2022-11-19 10:40:00 Outpatient KB KATERYNA MITCHELL [id number] [facility] Gauthier 2022-11-18 00:00:00 2022-11-18 00:00:00 Outpatient DARIUS GALLO KATERYNA MITCHELL [id number] [facility] Gauthier 2022-11-14 11:30:00 2022-11-14 11:30:00 Outpatient PREGEORGINA LAUGHLIN KATERYNA MITCHELL [id number] [facility] Gauthier 2022-11-14 00:00:00 2022-11-14 00:00:00 Outpatient PREGEORGINA LAUGHLIN KATERYNA MITCHELL [id number] [facility] Gauthier 2022-11-13 00:00:00 2022-11-13 00:00:00 Outpatient PREGEORGINA LAUGHLIN KATERYNA MITCHELL [id number] [facility] Gauthier 2022-11-06 09:15:00 2022-11-06 09:15:00 Outpatient OU, CHRISTIANO MITCHELL [id number] [facility] Disha 2022-10-29 08:30:00 2022-10-29 08:30:00 Outpatient KATERYNA MITCHELL [id number] [facility] Gauthier 2022-10-25 00:00:00 2022-10-25 00:00:00 Outpatient DARIUS GALLO KATERYNA MITCHELL [id number] [facility] Gauthier 2022-09-25 10:05:00 2022-09-25 10:05:00 Outpatient KATERYNA MITCHELL [id number] [facility] 2022-09-25 10:00:00 2022-09-25 10:00:00 Outpatient KATERYNA MITCHELL [id number] [facility] ybdayanna 2022-09-25 09:55:00 2022-09-25 09:55:00 Outpatient KATERYNA MITCHELL [id number] [facility] ybdayanna 2022-09-25 09:00:00 2022-09-25 09:00:00 Outpatient OU, CHRISTIANO MITCHELL [id number] [facility] 2022-09-10 10:00:00 2022-09-10 10:00:00 Outpatient OU, CHRISTIANO MITCHELL [id number] [facility]22-[facility]-09 10:15:00 2022-09-09 10:15:00 Outpatient KB KATERYNA MITCHELL [id number] [facility] 2022-09-09 09:30:00 2022-09-09 09:30:00 Outpatient DARIUS GALLO [id number] [facility] 2022-09-06 16:00:00 2022-09-06 16:00:00 Outpatient DARIUS GALLO [id number] [facility] 2022-09-02 13:45:00 2022-09-02 13:45:00 Outpatient LATHA ROCK [id number] [facility] 2022-08-15 00:00:00 2022-08-15 00:00:00 Outpatient DARIUS GALLO [id number] [facility] 2022-07-10 00:00:00 2022-07-10 00:00:00 Outpatient DARIUS GALLO [id number] [facility] 2022-07-09 00:00:00 2022-07-09 00:00:00 ambulatory STLMLC STLMLC [id number] [facility] 2022-07-04 00:00:00 2022-07-04 00:00:00 ambulatory STLMLC STLMLC [id number] [facility] 2022-07-03 00:00:00 2022-07-03 00:00:00 Outpatient DARIUS GALLO [id number] [facility] 2022-07-02 00:00:00 2022-07-02 00:00:00 ambulatory STLMLC STLMLC [id number] [facility] 2022-06-26 00:00:00 2022-06-26 00:00:00 Outpatient DARIUS GALLO [id number] [facility] 2022-06-26 00:00:00 2022-06-26 00:00:00 ambulatory STLMLC STLMLC [id number] [facility] 2022-06-12 00:00:00 2022-06-12 00:00:00 Outpatient DARIUS GALLO [id number] [facility] 2022-06-07 16:10:00 2022-06-07 16:10:00 Outpatient LAB90 KATERYNA MITCHELL [id number] [facility] 2022-06-07 15:30:00 2022-06-07 15:45:00 Office Visit Darius Gallo 1.2.840.114 [id number] [id number] [id number] [facility] 2022-05-15 00:00:00 2022-05-15 00:00:00 Outpatient DARIUS GALLO KATERYNA [id number] [facility] 2022-05-10 15:30:00 2022-05-10 16:00:00 Office Visit Darius [facility]o [facility] 1.2.840.114 [id number] [id number] [id number] [facility] 2022-05-08 00:00:00 2022-05-08 00:00:00 ambulatory STLMLC STLMLC [id number] [facility] 2022-04-16 00:00:00 2022-04-16 00:00:00 ambulatory STLMLC STLMLC [id number] [facility] 2022-04-15 00:00:00 2022-04-15 00:00:00 ambulatory STLMLC STLMLC [id number] [facility] 2022-03-28 00:00:00 2022-03-28 00:00:00 ambulatory STLMLC STLMLC [id number] [facility] 2022-03-21 00:00:00 2022-03-21 00:00:00 ambulatory STLMLC STLMLC [id number] [facility] 2022-03-13 00:00:00 2022-03-13 00:00:00 ambulatory STLMLC STLMLC [id number] [facility] 2022-03-12 00:00:00 2022-03-12 00:00:00 ambulatory STLMLC STLMLC [id number] [facility] 2022-02-26 00:00:00 2022-02-26 00:00:00 ambulatory STLMLC STLMLC [id number] [facility] 2022-02-26 00:00:00 2022-02-26 00:00:00 ambulatory STLMLC STLMLC [id number] [facility] 2022-02-12 00:00:00 2022-02-12 00:00:00 ambulatory STLMLC STLMLC [id number] [facility] 2022-02-05 00:00:00 2022-02-05 00:00:00 ambulatory STLMLC STLMLC [id number] [facility] 2022-01-30 00:00:00 2022-01-30 00:00:00 ambulatory STLMLC STLMLC [id number] [facility] 2022-01-30 00:00:00 2022-01-30 00:00:00 ambulatory STLMLC STLMLC [id number] [facility] 2022-01-30 00:00:00 2022-01-30 00:00:00 ambulatory STLMLC STLMLC [id number] [facility] 2022-01-21 00:00:00 2022-01-21 00:00:00 ambulatory STLMLC STLMLC [id number] [facility] 2022-01-21 00:00:00 2022-01-21 00:00:00 ambulatory STLMLC STLMLC [id number] [facility] 2022-01-21 00:00:00 2022-01-21 00:00:00 ambulatory STLMLC STLMLC [id number] [facility] 2022-01-18 00:00:00 2022-01-18 00:00:00 ambulatory STLMLC STLMLC [id number] [facility] 2022-01-15 00:00:00 2022-01-15 00:00:00 ambulatory STLMLC STLMLC [id number] [facility] 2022-01-08 00:00:00 2022-01-08 00:00:00 Outpatient DARIUS GALLO KATERYNA MITCHELL [id number] [facility] 2021-12-27 00:00:00 2021-12-27 00:00:00 Outpatient DARIUS GALLO KATERYNA MITCHELL [id number] [facility] 2021-12-25 00:00:00 2021-12-25 00:00:00 Outpatient JOSHUA GALLOVENICE MITCHELL [id number] [facility] 2021-12-09 00:00:00 2021-12-09 00:00:00 Outpatient KATERYNA MITCHELL [id number] [facility] 2021-11-29 00:00:00 2021-11-29 00:00:00 Outpatient DARIUS GALLO KATERYNA MITCHELL [id number] [facility] 2021-11-27 08:15:00 2021-11-27 08:15:00 Outpatient LAB90 KATERYNA MITCHELL [id number] [facility] 2021-11-27 00:00:00 2021-11-27 00:00:00 Outpatient DARIUS GALLO KATERYNA MITCHELL [id number] [facility] 2021-11-27 00:00:00 2021-11-27 00:00:00 Outpatient KATERYNA MITCHELL [id number] [facility] 2021-11-26 10:45:00 2021-11-26 11:15:00 Office Visit SabinoDarius lemons Sebastián [place] 1.2.840.114 350.1.13.13 1.2.7.2.686 [id number] [facility] 2021-11-23 00:00:00 2021-11-23 00:00:00 Outpatient FRIEDMANASHLI CLARKERomeroSTEPHEN KATERYNA MITCHELL [id number] [facility] 2021-11-05 00:00:00 2021-11-05 00:00:00 ambulatory STLMLC STLMLC [id number] [facility] 2021-11-01 00:00:00 2021-11-01 00:00:00 ambulatory STLMLC STLMLC [id number] [facility] 2021-10-29 00:00:00 2021-10-29 00:00:00 ambulatory STLMLC STLMLC [id number] [facility] 2021-10-24 00:00:00 2021-10-24 00:00:00 ambulatory STLMLC STLMLC [id number] [facility] 2021-10-23 00:00:00 2021-10-23 00:00:00 (TEL) STLMLC STLMLC [id number] [facility] 2021-10-16 00:00:00 2021-10-16 00:00:00 ambulatory STLMLC STLMLC [id number] [facility] 2021-04-17 12:26:00 2021-04-17 20:09:00 Emergency E MADELINE ULLOA [facility] [id number] 2021-02-28 19:00:00 2021-02-28 20:05:00 Emergency Raul Elkins [facility] 1.2.840.114 350.1.13.10 4.2.7.2.686 [id number] 2021-02-28 18:54:00 2021-02-28 18:54:00 Emergency X [facility] [id number] [facility] 2020-11-12 10:27:00 2020-11-12 13:27:00 Emergency X JUSTIN, JERROD [facility] ERT [id number] [facility] 2020-11-12 10:27:00 2020-11-12 10:27:00 Emergency X JUSTIN, JERROD [facility] ERT [id number] [facility] 2020-10-10 13:09:00 2020-10-10 19:20:00 [id number] 2020-06-28 14:56:00 2020-06-28 17:04:00 Emergency Rafia Pisano [facility] 1.2.840.114 350.1.13.10 4.2.7.2.686 [id number] 2020-06-28 14:56:00 2020-06-28 14:56:00 Emergency X RAFIA PISANO [facility] ERT [id number] [facility] 2020-06-28 00:00:00 2020-06-28 00:00:00 Orders Only Doctor Unassigned, [place] [facility] 1.2.840.114 350.1.13.10 4.2.7.2.686 [id number] 2020-03-20 18:31:57 2020-03-20 20:18:00 Emergency Errol Sharp [facility] 1.2.840.114 350.1.13.10 4.2.7.2.686 [id number] 2020-03-20 18:31:57 2020-03-20 18:31:57 Emergency X ERROL SHARP [facility] ERT [id number] [facility] Results Test Description Test Time Test [...] patent. Visualized sacral arcuate lines are intact. [facility] - XR FLUOROSCOPY 0-60 MIN 7 10:27:00 Name: RACHAEL OQUENDO : 1960 Age/S: 58 / M [id number] Unit #: [id number] Loc: [place] [address] Phys: Kevin Rollins MD Acct: [id number] Dis Date: Status: REG [facility] PHONE #: [phone] Exam Date: 01/14/201910 FAX #: Reason: PORT A CATH PLACEMENT EXAMS: CPT: [id number] XR FLUOROSCOPY 0-60 MIN 66000 Fluoro Time: 8 SEC DAP (Gy m2): [...] MD PAGE 1 Signed Report Name: RACHAEL OQUENDOland : 1960 Age/S: 58 / M [address] Unit #: [id number] Loc: [place] [address] Phys: Kevin Rollins MD Acct: [id number] Dis Date: Status: REG [facility] PHONE #: [phone] Exam Date: 01/14/2019 0910 FAX #: Reason: PORT A CATH PLACEMENT EXAMS: CPT: [id number] XR FLUOROSCOPY 0-60 MIN 29704 Fluoro Time: 8 SEC DAP (Gy m2): Air Kerma (mGy): (Continued) Technologist: Sandy Lucero RT(R)(CT); Mary Carbajal RT(R) [facility] Date/Time: 01/14/2019 (1027) [id number] Orig Print D/T: S: 01/14/2019 (1030) PAGE 2 Signed Report - XR CHEST 1 [id number] 10:04:00Name: RACHAEL OQUENDO : 1960 Age/S: 58 / M [id number] Unit #: [id number] Loc: [place] [address] Phys: Kevin Rollins MD Acct: [id number] Dis Date: Status: REG [place] PHONE #: [phone] Exam Date: 01/14/2019 0955 FAX #: Reason: port placement EXAMS: CPT: [id number] XR CHEST 1 V 57271 Fluoro Time: DAP (Gy m2): Air Kerma [...] OQUENDO : 1960 Age/S: 58 / M [address] Unit #: [id number] Loc: [place] [address] Phys: Kevin Rollins MD Acct: [id number] Dis Date: Status: REG [place] PHONE #: [phone] Exam Date: 01/14/2019 0955 FAX #: Reason: port placement EXAMS: CPT: [id number] XR CHEST 1 V 10382 Fluoro Time: DAP (Gy m2): Air Kerma (mGy): (Continued) Technologist: Rachael Izquierdo, RT(R)(CT); Mary Carbajal RT(R) Trnscb Date/Time: 01/14/2019 (1004) [id number] Orig Print D/T: S: 01/14/2019 (1007) PAGE 2 Signed ReportGLUCOSE BEDSIDE [id number] 07:20:00* Test Item Value Reference Range Interpretation Comme nts GLUCOSE BEDSIDE TESTING (minerva t code = GLUBED) 137 mg/dL 70-110 H [id number] 16:52:00 RUN DATE: 01/06/19 [facility] - LAB *LIVE* PAGE 1 RUN TIME: 1651 Specimen Inquiry RUN USER: INTERFACE PATIENT: RACHAEL OQUENDO LOC: Francia U #: [id number] AGE/SX: 58/M ROOM: [facility] RE12/31/18[facility] DR: Kevin Rollins MD : 64 BED: 1 DIS: 01/02/19 STATUS: DIS IN TLOC: -- SPEC #: [id number] RECD: 01/01/19 STATUS: MARCIA REFredi #: [id number] ONELIA: 12/31/18 [facility] DR: Kevin Rollins MD ENTERED: 01/01/19 SP TYPE: SURG OTHR DR: Shamar Abreu ORDERED: SURG PATH LVL 6 COPIES TO:Shamar Abreu [address] [place] [address] [place] [id number] [address] HISTOLOGY: TISSUE ID BLK PCS CESAR LEV PROCEDURE DISPOSITION ____ ___ ___ ___ SIGMOID COLON A 1-151 PROCEDURES: SURG PATH LVL 6 (01/01/19) TISSUES: A. SIGMOID COLON - SIGMOID COLON AND ANASTOMATIC COLON RINGS CLINICAL HISTORY COLON RECTAL CANCER -C18.9 CPT CODES CPT CODE(S): 37186 , , , , , , FINAL DIAGNOSIS Colon, sigmoid, anastomotic donuts, partial colectomy: MODERATELY DIFFERENTIATED COLORECTAL ADENOCARCINOMA, 6 CM GREATEST DIMENSION 7 LYMPH NODES POSITIVE FOR METASTATIC CARCINOMA (7/10) MARGINS NEGATIVE CONTINUED ON NEXT PAGE RUN DATE: 01/06/19 [facility] - LAB *LIVE* PAGE 2 RUN TIME: 1652 Specimen Inquiry RUN USER: INTERFACE SPEC #: [facility]:[id number] PATIENT: RACHAEL OQUENDO #[id number] (Continued) GROSS DESCRIPTION Sigmoid colon and anastomotic [...] A3 Entire circumference of distal margin A4-A5 Neuroradiologist sections of the lesion A6 Tumor with normal mucosa of proximal margin A7 Tumor with normal mucosa of closest distal margin A8 Normal mucosa A9 Neuroradiologist sections of largest anastomotic ring A10 Neuroradiologist sections of second a nastomotic ring A11 Neuroradiologist sections of mesentery A12-A14 Neuroradiologist sections of mesentery with possible matted lymph nodes A15-A20 Entire lymph nodes, one lymph node each A21 Two lymph nodes A22 Two lymph nodes, serially sectioned A23 Three lymph nodes Grossing performed at [facility], [address], [address], [place], [place] [address]. Shopper: Hany Haji M.D. MICROSCOPIC DESCRIPTION Sigmoid colon [...] are identified.The carcinoma CONTINUED ON NEXT PAGE -------- ----RUN DATE: 01/06/19 [facility] - LAB *LIVE* PAGE 3 RUN TIME: 1652 Specimen Inquiry RUN USER: INTERFACE - SPEC #: [facility]:[id number] PATIENT: RACHAEL OQUENDO #[id number] (Continued) MICROSCOPIC DESCRIPTION (Continued) demonstrates moderately differentiated [...] lymph nodes: pN2b Signed SIGNATURE ON FILE ElenikimberlynBlul M 01/06/19 1652 ----- ------- END OF REPORT GLUCOSE BEDSIDE [id number] 17:20:00* Test Item Value Reference Range Interpretation Comme nts GLUCOSE BEDSIDE TESTING (minerva t code = GLUBED) 103 mg/dL 70-110 N GLUCOSE BEDSIDE [id number] 11:28:00* Test Item Value Reference Range Interpretation Comme nts GLUCOSE BEDSIDE TESTING (minerva t code = GLUBED) 87 mg/dL 70-110 N GLUCOSE BEDSIDE [id number] 07:23:00* Test Item Value Reference Range Interpretation Comme nts GLUCOSE BEDSIDE TESTING (minerva t code = GLUBED) 108 mg/dL 70-110 N GLUCOSE BEDSIDE [id number] 20:29:00* Test Item Value Reference Range Interpretation Comme nts GLUCOSE BEDSIDE TESTING (minerva t code = GLUBED) 99 mg/dL 70-110 N GLUCOSE BEDSIDE [id number] 16:28:00* Test Item Value Reference Range Interpretation Comme nts GLUCOSE BEDSIDE TESTING (minerva t code = GLUBED) 84 mg/dL 70-110 N GLUCOSE BEDSIDE [id number] 11:30:00* Test Item Value Reference Range Interpretation Comme nts GLUCOSE BEDSIDE TESTING (minerva t code = GLUBED) 106 mg/dL 70-110 N GLUCOSE BEDSIDE [id number] 07:38:00* Test Item Value Reference Range Interpretation Comme nts GLUCOSE BEDSIDE TESTING (minerva t code = GLUBED) 120 mg/dL 70-110 H CBC W/AUTO [id number] 06:24:00* Test Item Value Reference Range Interpretation [...] = MDIFF) NO DIFF/SCN CRITERIA GLUCOSE BEDSIDE [id number] 21:45:00* Test Item Value Reference Range Interpretation Comme nts GLUCOSE BEDSIDE TESTING (minerva t code = GLUBED) 135 mg/dL 70-110 H BASIC METABOLIC [id number] 18:20:00* Test Item Value Reference Range Interpretation [...] code = CA) 8.1 MG/DL 8.5-10.1 L [id number] 18:20:00* Test Item Value Reference Range Interpretation Comme nts PHOSPHOROUS (test code = PHOS) 3.2 MG/DL 2.5-4.9 N [id number] 18:20:00* Test Item Value Reference Range Interpretation Comme nts MAGNESIUM (test code = MAG) 1.7 MG/DL 1.8-2.4 L GLUCOSE BEDSIDE [id number] 16:54:00* Test Item Value Reference Range Interpretation Comme nts GLUCOSE BEDSIDE TESTING (minerva t code = GLUBED) 160 mg/dL 70-110 H GLUCOSE BEDSIDE [id number] 14:29:00* Test Item Value Reference Range Interpretation Comme nts GLUCOSE BEDSIDE TESTING (minerva t code = GLUBED) 136 mg/dL 70-110 H GLUCOSE BEDSIDE [id number] 07:31:00* Test Item Value Reference Range Interpretation Comme nts GLUCOSE BEDSIDE TESTING (minerva t code = GLUBED) 125 mg/dL 70-110 H MRI Knee Right Wo ContMRI Knee Right Wo Cont Notes Date/Time Note Provider Source 2024-07-30 14:52:08 Chief Complaint Patient presents with Consultation For VIVIENNE/CPAP, brought CPAP machine. 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 Printed and verbal instructions reviewed with and given to pt. Prescriptions given x 2. Pt verbalized understanding of teaching, medications, and recommended follow-up. Denies questions or concerns at this time. Pt ambulatory with cane at discharge. Appears in no apparent distress. No ataxia noted. Accompanied by . [facility] 2024-07-07 17:34:48 Pt to ED accompanied by CO lower back pain. states "He has severe stenosis and comes to the ER all the time. Usually I take him to [place] but we were closer to here. I [...] is seeing pain management. Nae Matias RN [facility] 2024-07-07 17:07:00 [facility] Emergency Department Note Patient Name: Rachael Chery Date of : 1960 63 year old male Treatment Room: [facility] ED [facility] Primary Care Physician: Marielos Monteiro Patient Escorted by: Family [5] Mode of Arrival: Personal means [1] EMS Treatment Prior to ED Arrival: DIRECTOR OF INSTRUMENTAL MUSIC treatment: Medication (comment) DIRECTOR OF INSTRUMENTAL MUSIC treatment comments: daily meds Travel and Exposure [...] for seizures. Physical Exam: ED Triage Vitals [07/07/24 1736] Weight 102.5 kg (226 lb) Actual or [...] Electronically signed by: Luc Barriga MD 07/07/241936 [facility] 2024-02-04 08:45:10 Jodi Degroot Chief Complaint Patient presents with Shoulder Pain Left shoulder pain [facility] 2024-01-27 09:03:59 No chief complaint on file. Anita Real [facility] 2023-07-24 08:26:56 Formatting of this n ote is different from the original. Chief Complaint Patient presents with Oncology Consult Madeline Romano CMA II [facility] 2023-07-01 14:20:33 Formatting of this n ote might be different from the original. Patient is here for 4 month follow up. VSS Saumya Amos [facility] 2019-01-18 12:58:00 [id number] [address] PATIENT NAME: RACHAEL OQUENDO ADMIT DATE: 01/14/19 ACCOUNT NO: [id number] ROOM NO: AGE: 58 REPORT TYPE: OPERATIVE [...] and fluoroscopic interpretation. SURGEON: Kevin Rollins MD. CHIP SILO TENDER: None. ANESTHESIA: General, LMA plus local. INDICATIONS [...] immediate complications. SPECIMENS REMOVED: None. IMPLANTS: An 8-[place] PowerPort catheter. DRAINS: None. ESTIMATED BLOOD LOSS: Less than 10 mL. PATIENT NAME: RACHAEL OQUENDO DISPOSITION: At the conclusion of the case, the patient was awakened from anesthesia and LMA was removed. The patient was transferred to the PACU in fair condition for a postoperative chest x-ray to be discharged home per protocol. Dictated By: Kevin Rollins MD WT: OP:JHOAN/GOVIND/REBECCA Conf#: [id number]/DID#: [id number] Authenticated by Kevin Rollins MD On 02/02/2019 01:34:33 PM at 1334 PATIENT NAME: RACHAEL OQUENDO [facility] 2019-01-14 17:04:00 [facility] ([facility]) Post Anesthesia Evaluation REPORT#:[id number] REPORT STATUS: Signed DATE:01/14/19 TIME:1704 PATIENT: RACHAEL OQUENDO UNIT #: [id number] ROOM/BED: : 62 AGE: 58 SEX: M [...] air / 1015 56 16 116/66 100 /07 1010 57 13 114/66 100 Room air /07 1005 58 13 110/67 100 Simple 10.383181 mask 03/07 1000 57 12 109/61 100 Simple 10.872468 mask 03/07 0955 61 15 107/61 100 Simple 10.530413 mask 03/07 0950 54 11 104/56 99 Simple 10.636869 mask 03/07 0946 Simple 10.286151 mask 03/07 0945 55 11 111/55 99 03/07 0940 36.3 54 12 124/65 99 Simple 10.035547 mask 03/07 0711 36.5 54 18 103/63 96 Room air Cardiovascular: CV system stable, vital signs stable Respiratory/Airway: respiratory system stable, maintains without support Pain: adequately controlled Hydration: adequate, euvolemic Temp status: greater than 96.8F, normothermic Presence of N/V: no Anesthesia complications: no Other changes requiring f/u: none Conclusions: no apparent anes. issues, outpts eval prior DC home at 1705 RPT #: [id number] END OF REPORT [facility] 2019-01-14 09:51:00 [facility] ([facility]) Brief Discharge Note w/Med Rec REPORT#:[id number] REPORT STATUS: Signed DATE:01/14/19 TIME:950 PATIENT: RACHAEL OQUENDO UNIT #: [id number] ROOM/BED: : 62 AGE: 58 SEX: M [...] Simple mask 01/14 946 O2 Flow Rate 10.998693 01/14 946 Pulse Ox 96 01/14 711 [...] appointment(s): 10 days at 0953 RPT #: [id number] END OF REPORT [facility] 2019-01-14 09:43:00 [facility] ([facility]) Bedside Procedure Note REPORT#:[id number] REPORT STATUS: Signed DATE:01/14/19 TIME:0943 PATIENT: RACHAEL OQUENDO UNIT #: [id number] ROOM/BED: : 62 AGE: 58 SEX: M [...] interpretation Performed by: Dr. Kevin Rollins MD Medical Technologist Hematology(s): none Indications: 58 yo M with stage [...] to D/C home at 0947 RPT #: [id number] END OF REPORT [facility] 2019-01-01 22:43:00 [facility] ([facility]) Brief Discharge Note w/Med Rec REPORT#:[id number] REPORT STATUS: Signed DATE:01/01/19 TIME:2242 PATIENT: RACHAEL OQUENDO UNIT #: [id number] ROOM/BED: [place] [address] : 64 AGE: 58 SEX: M ATTEND: [...] Ox 98 01/02 161 B/P 124/83 01/02 1619 B/P Mean 96.7 01/02 161 O2 Delivery Room air 01/02 1619 Temp 98.6 01/02 161 Pulse 69 01/02 161 Resp 18 01/02 161 O2 Flow Rate 10.586348 12/31 1430 Brief Discharge Note w/Med Rec [...] appointment(s): 7-10 days at 1112 RPT #: [id number] END OF REPORT [facility] 2019-01-01 13:36:[address] [facility] General Surgery Progress Note REPORT#:[id number] REPORT STATUS: Signed DATE:01/01/19 TIME:1336 PATIENT: RACHAEL OQUENDO UNIT #: [id number] ROOM/BED: [place] [address] : 64 AGE: 58 SEX: M ATTEND: [...] Resp 18 01/01 1109 O2 Flow Rate 10.754238 12/31 1430 Vital Signs Date Temp Pulse [...] MG DAILY PO Lactated Ringer's 1,000 ML .[id number] IV Enoxaparin Sodium 40 MG Q24H SUBQ Influenza Virus Vaccine 60 MCG ASDIR IM Hydromorphone HCl 0.2 MG Q3H PRN PRN IV Lactated Ringer's 1,000 ML .[id number] IV (DC) Ondansetron HCl 4 MG Q6H [...] - Male: no boss Extremities: moves all Neuro/PRIMER CHARGER: alert, normal speech Skin: dry, intact, normal [...] (Auto) (20.5 - 51.1 %) 17.5 L Whitley % (Auto) (1.7 - 9.3 %) 9.3 Eos % (Auto) (0.0 - 6.0 %) 0.1 Baso % (Auto) (0.0 - 2.0 %) 0.1 Neut # (Auto) (1.8 - 7.6 K/mm3) 7.73 H Lymph # (Auto) (0.6 - 3.0 K/mm3) 1.9 Whitley # (Auto) (0.2 - 1.5 K/mm3) 1.0 [...] 5. Pathology pending. at 1341 RPT #: [id number] END OF REPORT [facility] 2018-12-31 15:07:00 [id number] [address] PATIENT NAME: RACHAEL OQUENDO ADMIT DATE: 12/31/18 ACCOUNT NO: [id number] ROOM NO: L.S215 AGE: 58 REPORT TYPE: OPERATIVE REPORT SEX: M ADMITTING PHYSICIAN: Kevin Rollins MD ATTENDING PHYSICIAN: Kevin Rollins MD OPERATION DATE: 12/31/2018 PREOPERATIVE DIAGNOSIS: Colon cancer. POSTOPERATIVE DIAGNOSES: 1. Colon cancer. 2. Status post laparoscopic low anterior resection. PROCEDURE PERFORMED: Laparoscopic low anterior resection. SURGEON: Kevin Rollins MD CHIP SILO TENDER: LOAN Camargo ANESTHESIA: General endotracheal anesthesia plus [...] a retrocolic fashion. After completion of the snelhp-jv-pnowwjr direction, the atraumatic grasper and laparoscopic Kittner [...] the peritoneal cavity. Irrigation with the suction machinist apprentice revealed no evidence of active bleeding. After [...] of saline and evacuated with the suction machinist apprentice. Then, my assistant professor of theater went below and perform successive dilations of [...] function. Dictated By: Kevin Rollins MD WT: OP:LDANIELLE/GOVIND/NTS Conf#: [id number]/DID#: [id number] Authenticated by Kevin Rollins MD On 01/05/2019 02:30:53 PM at 1431 PATIENT NAME: RACHAEL OQUENDO [facility] 2018-12-31 14:35:00 [facility] ([facility]) Bedside Procedure Note REPORT#:[id number] REPORT STATUS: Signed DATE:12/31/18 TIME:1435 PATIENT: RACHAEL OQUENDO UNIT #: [id number] ROOM/BED: [place] [address] : 64 AGE: 58 SEX: M ATTEND: Kevin Rollins MD ADM AUTHOR: Kevin Rollins MD * ALL edits or amendments must be made on the electronic/computer document * Bedside Procedure Note Bedside Procedure Note Start date: 12/31/18 Start time: 844 Pre-procedure diagnosis: Colon cancer Post-procedure diagnosis: Same as above s/p lap low anterior resection Procedure performed: Laparoscopic low anterior resection Performed by: Dr. Kevin Rollins MD Medical Technologist Hematology(s): LOAN Camargo Indications: 58 yo M with [...] return to floor at 1442 RPT #: [id number] END OF REPORT [facility] 2018-12-31 13:56:00 [facility] ([facility]) Post Anesthesia Evaluation REPORT#:[id number] REPORT STATUS: Signed DATE:12/31/18 TIME:1356 PATIENT: RACHAEL OQUENDO UNIT #: [id number] ROOM/BED: [place] [address] : 64 AGE: 58 SEX: M ATTEND: [...] 12/31 1345 68 12 117/64 99 Simple 10.233392 mask 12/31 1340 37.6 74 12 116/64 100 Simple 10.722170 mask 12/31 0642 36.7 56 18 131/77 98 Room air 0.684697 Cardiovascular: no change, CV system stable, vital signs stable Respiratory/Airway: respiratory system stable, maintains without support Pain: adequately controlled Hydration: adequate Temp status: normothermic Presence of N/V: no Anesthesia complications: no Other changes requiring f/u: none Conclusions: no apparent anes. issues at 1357 RPT #: [id number] END OF REPORT [facility] 2018-12-29 16:15:00 [id number] [facility] [address] [place] [address] PATIENT NAME: RACHAEL OQUENDO ADMIT DATE: ACCOUNT NO: [id number] ROOM NO: AGE: 58 REPORT TYPE: eELECTROCARDIOGRAM SEX: M ADMITTING PHYSICIAN: Kevin Rollins MD ATTENDING PHYSICIAN: Kevin Rollins MD Order: [id number] Test Reason : PRE OP Test Date/Time [...] by DEEPIKA ROBLEDO MD ([id number]) on 12/30/2018 8:59:23 PM Referred By: Kevin Rollins Confirmed by:DEEPIKA ROBLEDO MD at 0937 PATIENT NAME: RACHAEL OQUENDO [facility]
--- NOTE | 2024-09-22 17:34 | RAD REPORT ---
EXAMINATION: CT ABDOMEN AND PELVIS WITHOUT CONTRAST CLINICAL INDICATION: HEMATURIA TECHNIQUE: CT abdomen and pelvis was performed, without IV contrast, as per department protocol. Axia l, sagittal and coronal reconstructions were obtained. One or more of the following dose reduction techniques were used: Automated exposure control, adjustment of the mA and kV according to the patien t size, and iterative reconstruction. Unless otherwise specified, incidental findings do not require dedicated imaging follow-up. COMPARISON: 04/30/2023 FINDINGS: The lack of intravenous contrast limits the sensitivity of this exam for evaluation of solid visceral organs, vascular structures, and retroperitoneum. LOWER CHEST: The visualized lung bases are clear. LIVER:Normal in size and contour. No focal lesion. Grossly unremarkable gallbladder. SPLEEN: Normal size. No focal lesion. PANCREAS: No mass, ductal dilation, or errol-pancreatic fluid. ADRENALS: Normal; no mass. KIDNEYS AND URETERS: Normal size and contour. No hydronephrosis. URINARY BLADDER: Normal contour. GASTROINTESTINAL TRACT: No evidence of bowel obstruction, significant free fluid, free air or abscess . Small fat-containing umbilical hernia. APPENDIX: Normal appendix. LYMPH NODES: No lymphadenopathy. MUSCULOSKELETAL: No acute or suspicious osseous abnormality. ADDITIONAL FINDINGS: Asymmetric wall thickening affects the urinary bladder, with the anterior urinar y bladder wall measuring up to 11 mm. IMPRESSION: Asymmetric wall thickening of the urinary bladder, with the anterior bladder wall is thickened to 11 mm. Visualization is recommended with follow-up cystoscopy.
[2024-09-22 17:45] LABS: Sqamous Epithelial <5 /HPF (None Seen); Urine Bacteria None Seen /HPF (<20); Urine Bilirubin NEGATIVE (Negative); Urine Blood 3+ (OVER) (Negative); Urine Clarity Turbid (Clear); Urine Color Light-Yellow (Yellow); Urine Crystals Unidentified Few /HPF (None Seen); Urine Culture Reflex Order NOT NEEDED; Urine Glucose 4+ (Over) (Negative); Urine Ketones TRACE (Negative); Urine Microscopic Reflex YN ORDER UMIC; Urine Nitrite NEGATIVE (Negative); Urine Protein NEGATIVE (Negative); Urine RBC >50 /HPF (None Seen); Urine Urobilinogen Normal (Normal); Urine WBC <5 /HPF (<5)
--- NOTE | 2024-09-22 18:02 | ER ---
Nurse's Notes [facility] Name: Taiwo Chery Age: 64 yrs Sex: Male : 1960 Arrival Date: 09/22/2024 Time: 16:08 Bed DX4 Private MD: Diagnosis: Gross hematuria Presentation: 09/22 16:28 Chief complaint: Spouse and/or significant other states: blood in urine for 3 days, no ko1 blood thinners except aspirin 81mg daily. Coronavirus screen: At this time, the client does not indicate any symptoms associated with coronavirus-19. Ebola Screen: No symptoms or risks identified at this time. Initial Sepsis Screen: Does the patient meet any 2 criteria? No. Patient's initial sepsis screen is negative. Does the patient have a suspected source of infection? No. Patient's initial sepsis screen is negative. Risk Assessment: Do you want to hurt yourself or someone else? Patient reports no desire to harm self or others. Onset of symptoms is unknown. 16:28 Method Of Arrival: Ambulatory ko1 16:28 Acuity: LEONARD 3 ko1 Triage Assessment: 16:32 General: Appears in no apparent distress. Behavior is calm, cooperative, appropriate ko1 for age. Pain: Denies pain. Historical: - Allergies: 16:32 No Known Allergies; ko1 - Home Meds: 16:32 aspirin 81 mg oral tablet,chewable 1 tab daily [Active]; ko1 - PMHx: 16:32 chronic back pain; colon cancer-in remission; diabetes mellitus; Hypertensive disorder; ko1 - PSHx: 16:32 tumor removed from colon (en); ko1 - Immunization history:: Adult Immunizations up to date. - Infectious Disease History:: Denies. - Social history:: Smoking status: Patient denies any tobacco usage or history of. Screenin:07 [facility] ED Fall Risk Assessment (Adult) History of falling in the last 3 months, ap3 including since admission No falls in past 3 months (0 pts) Confusion or Disorientation No (0 pts) Intoxicated or Sedated No (0 pts) Impaired Gait No (0 pts) Mobility Assist Device Used No (0 pt) Altered Elimination No (0 pt) Score/Fall Risk Level 0 - 2 = Low Risk Oriented to surroundings, Maintained a safe environment, Educated pt \T\ family on fall prevention, incl call for assistance when getting out of bed, Assessed \T\ reinforced patient's understanding of fall precautions, Hourly rounding (assess needs \T\ fall precautionary measures) done, Used ambulatory aids as needed (educated on \T\ assisted with), Used gait belt as appropriate. Abuse screen: Denies threats or abuse. Nutritional screening: No deficits noted. Tuberculosis screening: No symptoms or risk factors identified. Vital Signs: 16:28 BP 116 / 80; Pulse 70; Resp 16; Temp 97.4; Pulse Ox 99% ; ko1 ED Course: 16:10 Patient arrived in ED. ra3 16:12 Naman Hinton MD is Attending Physician. ec2 16:32 Triage completed. ko1 16:32 Arm band placed on right wrist. Patient placed in waiting room, Patient notified of ko1 wait time. 17:11 Urinalysis w/ reflexes Sent. ko1 17:11 Urine collected: clean catch specimen, cloudy. ko1 17:28 CT Abd/Pelvis - Without Contrast In Process Unspecified. EDMS 18:01 Quinn Bustillos MD is Referral Physician. ec2 18:07 Patient has correct armband on for positive identification. Provided Education on: ap3 discharge instructions. 18:07 No provider procedures requiring assistance completed. Patient did not have IV access ap3 during this emergency room visit. Administered Medications: No medications were administered Medication: 18:07 VIS not applicable for this client. ap3 Outcome: 18:01 Discharge ordered by . ec2 18:07 Discharged to home ambulatory, ap3 18:07 Condition: good 18:07 Discharge instructions given to patient, Instructed on discharge instructions, follow up and referral plans. Demonstrated understanding of instructions, follow-up care, 18:07 Patient left the ED. ap3 Signatures: Dispatcher [employer] Meaghan Darden RN RN ap3 Yaneth Donaldson RN RN ko1 Naman Hinton MD MD ec2 Louise Petersen ra3
--- NOTE | 2024-09-22 18:02 | EDPHYS ---
Physician Documentation [facility] Name: Taiwo Chery Age: 64 yrs Sex: Male : 1960 Arrival Date: 09/22/2024 Time: 16:08 Bed DX4 Private MD: ED Physician Naman Hinton HPI: 09/22 17:08 This 64 yrs old Male presents to ER via Ambulatory with complaints of Blood in ec2 urine x3days. 17:08 Patient arrives today for evaluation of asymptomatic hematuria ongoing for the past 3 ec2 days. Patient reports no abdominal pain. Denies any blood thinners. Reports no dysuria.. Historical: - Allergies: 16:32 No Known Allergies; ko1 - Home Meds: 16:32 aspirin 81 mg oral tablet,chewable 1 tab daily [Active]; ko1 - PMHx: 16:32 chronic back pain; colon cancer-in remission; diabetes mellitus; Hypertensive disorder; ko1 - PSHx: 16:32 tumor removed from colon (en); ko1 - Immunization history:: Adult Immunizations up to date. - Infectious Disease History:: Denies. - Social history:: Smoking status: Patient denies any tobacco usage or history of. ROS: 17:08 Constitutional: as per hpi ec2 Exam: 17:08 Constitutional: GEN: NAD Head: atraumatic Eyes: EOMI Ears: External ears are ec2 normal. CV: regular rate LUNGS: no respiratory distress ABD: non-distended SKIN: no evidence of rashes MSK: no evidence of trauma Vital Signs: 16:28 BP 116 / 80; Pulse 70; Resp 16; Temp 97.4; Pulse Ox 99% ; ko1 MDM: 17:08 Data reviewed: vital signs, nurses notes. ED course: Patient arrives today for ec2 asymptomatic hematuria. Examination is unrevealing. Will obtain urine study as well as CT of the pelvis. Differential includes hematuria, bladder cancer, lower suspicion for ureteral stone.. 17:09 Medical Screening Exam initiated ec2 18:01 ED course: CT imaging shows inflammation in the bladder, no ureteral stone. Will ec2 discharge home. Have patient follow-up with urology. Patient does have history of hematuria with previous cystoscopy and is followed with Dr. Bustillos in the past. Return precautions given. No evidence of obstruction. No evidence of UTI.. 11/13 16:37 Order name: Urinalysis w/ reflexes; Complete Time: 17:49 ko1 09/22 16:43 Order name: CT Abd/Pelvis - Without Contrast; Complete Time: 17:37 ec2 Administered Medications: No medications were administered Disposition Summary: 09/22/24 18:01 Discharge Ordered Notes: Location: Home ec2 Condition: Stable ec2 Diagnosis - Gross hematuria ec2 Followup: ec2 - With: Quinn Bustillos MD - When: - Reason: Recheck today's complaints Discharge Instructions: - Discharge Summary Sheet ec2 - Hematuria, Adult ec2 Forms: - Family Work Release ec2 - Medication Reconciliation Form ec2 - Antibiotic Education ec2 - Prescription Opioid Use ec2 - Patient Portal Instructions ec2 - Leadership Thank You Letter ec2 Signatures: Dispatcher [employer] Yaneth Ferris, RN RN ko1 Naman Hinton MD MD ec2 Corrections: (The following items were deleted from the chart) 18:06 17:09 IV Saline Lock ordered. ec2 ap3 18:06 17:09 Labs collected and sent ordered. ec2 ap3
[2024-09-22 18:27] VITALS: BP 116/80; TEMP 97.4; O2SAT 99
== END 2024-09-22 18:07 | disposition home or self-care (01) ==
LOC: ER 16:08
DX: R31.0 Gross hematuria (principal); E11.9 Type 2 diabetes mellitus without complications; I10 Essential (primary) hypertension; Z79.82 Long term (current) use of aspirin
CPT/HCPCS: 74176; 81001